=== PATIENT | male | born 1940 | race Caucasian/White ===

== ENCOUNTER 2019-09-12 08:41 | Inpatient (IN) | payer MEDICARE ==
[~2019-09-12] VITALS: Ht 180.3 cm; Wt 84.1 kg
[2019-09-12] MEDS ORDERED: DOCUSATE SODIUM 100 MG (COLACE) CAP PO PRN (10:30)
[2019-09-12] MEDS ORDERED: CALCIUM CARBONATE 500 MG (TUMS) TAB.CHEW PO PRN (10:30)
[2019-09-12] MEDS ORDERED: diphenhydrAMINE 25 MG TAB (BENADRYL) PO PRN (10:30)
[2019-09-12] MEDS ORDERED: FLEET ENEMA ADULT 1 EA BTL PR PRN (10:30)
[2019-09-12] MEDS ORDERED: ACETAMINOPHEN 500 MG TAB (TYLENOL) PO PRN (10:30)
[2019-09-12] MEDS ORDERED: LOPERAMIDE 2 MG (IMODIUM) TABLET PO PRN (10:30)
[2019-09-12] MEDS ORDERED: LACTULOSE SYRUP 10GM/15ML (ENULOSE) 30ML UDC PO PRN (10:30)
[2019-09-12] MEDS ORDERED: BISACODYL 10 MG SUPP (DULCOLAX) PR PRN (10:30)
[2019-09-12] MEDS ORDERED: guaiFENesin/CODEINE (ROBITUSSIN AC) 10ML UDC PO PRN (10:30)
--- NOTE | 2019-09-12 11:30 | NUR ---
Milan Cardozo JR admitted to room 230-1, with an admitting diagnosis of CVA, on 09/12/19 from [facility] via EMS, accompanied by ems staff. MILAN CARDOZO JR introduced to surroundings, call light, bed controls, phone, TV, temperature control, lights, meal times, smoking policy, visitor policy, side rail policy, bathrooms and showers. Patient Rights given to patient in the handbook.MILAN CARDOZO JR verbalizes understanding that [facility] is not responsible for the loss or damage to any personal effects or valuables that are kept in the patients posession during their hospitalization. The following Patient Care Plans were discussed with the patient: Discharge Planning, CVA,and falls. MILAN CARDOZO JR verbalizes understanding of Interdisciplinary Patient Education. Patient and/or family were informed about the Rapid Response Team and its purpose. Patient received Patient Rights Booklet, which includes Privacy Act Statement and Data Collection Information Summary.
[2019-09-12 11:52] VITALS: BP 118/71
[2019-09-12 11:56] VITALS: BP 118/71
--- NOTE | 2019-09-12 11:57 | Occupational Therapy Eval ---
OT Evaluation-General/PLF Medical Diagnosis Admission Date Sep 12, 2019 at 11:43 Medical Diagnosis: CVA Onset Date: Aug 02, 2019 Therapy Diagnosis Therapy Diagnosis: Decreased ADL status Precautions Precautions/Isolations: Standard Precautions Weight Bear Status Weight Bearing Restriction: Weight Bearing/Tolerated Location Restriction: LE Bilateral Referral Physician: Diana Simon DO Referral Reason: Activity Tolerance, Self Care, Evaluation/Treatment, Strengthening/ROM Medical History Additional Medical History Prostate Ca, COPD, DVT, CAD, HTN Current History Pt underwent cholecystostomy 07/30, readmitted to [facility] 08/01 with abdominal pain and questionable PNA. Pt has rapid response 08/12 with hypoxia and hypotension. Reviewed History: Yes Social History Home: Single Level Current Living Status: Significant Other Entry Into Home: Stairs With Railing Steps Into Home: 2 Steps Inside Home: 0 ADL-Prior Level of Function SCALE: Activities may be completed with or without assistive devices. 6-Ifgysmendj-fgyfjgm completes the activity by him/herself with no assistance from a helper. 5-Set-up or Clean-up Assistance-helper sets up or cleans up; patient completes activity. [place] assists only prior to or following the activity. 4-Supervision or Touching Assistance-helper provides verbal cues and/or touching/steadying and/or contact guard assistance as patient completes activity. Assistance may be provided throughout the activity or intermittently. 3-Partial/Moderate Assistance-helper does LESS THAN HALF the effort. [place] lifts, holds or supports trunk or limbs, but provides less than half the effort. 2-Substantial/Maximal Assistance-helper does MORE THAN HALF the effort. [place] lifts or holds trunk or limbs and provides more than half the effort. 7-Msgpbwpkk-rgoodc does ALL the effort. Patient does none of the effort to complete the activity. Or, the assistance of 2 or more helpers is required for the patient to complete the activity. If activity was not attempted, code reason: 7-Patient Refused. 9-Not Applicable-not attempted and the patient did not perform the activity before the current illness, exacerbation or injury. 10-Not Attempted due to Environmental Limitations-(lack of equipment, weather restraints, etc.). 88-Not Attempted due to Medical Conditions or Safety Concerns. ADL PLOF Comments Pt was IND with I/ADLs without use of AD. Self Care: Independent Functional Cognition: Independent DME/Equipment: Tub/Shower DME/Equipment Comments Pt has small bathroom, questions if w/c will fit into bathroom for toileting. BSC/ tub transfer bench recommended at this time. Occupation: retired ([employer]M) [address] Self: Yes OT Current Status Subjective Pt seen in bed. Pt alert/ oriented. Pt agreeable to OT eval/ treat. present. Pt states he is "okay", pt presents with lean to R and neck turned to R side. Current Glasses/Contacts: Yes Hearing Aids: No Dentures/Partials: No Other Treatments Pt and oriented to ARU and expectations, educated on OT role. Pt agrees to OT tx, stating he is feeling fine. Pt able to mobilize head WFL (R to L). Pt states no vision changes post CVA. Education OT Patient Education: Correct positioning, Progress toward Goal/Update tx plan, Purpose of tx/functional activities, Rehab process, Safety issues Teaching Recipient: Patient Teaching Methods: Demonstration, Discussion Response to Teaching: Verbalize Understanding, Return Demonstration OT Water Aerobics Instructor Goals Water Aerobics Instructor Goals 1=Demonstrate adherence to instructed precautions during ADL tasks. 2=Patient will verbalize/demonstrate understanding of assistive devices/modifications for ADL. 3=Patient will improve strength/tolerance for activity to enable patient to perform ADL's. OT Education/Plan Problem List/Assessment Assessment: Decreased Activ Tolerance, Decreased UE Strength, Dependent Transfers, Impaired Bed Mobility, Impaired Coordination, Impaired Funct Balance, Impaired I ADL's, Impaired Self-Care Skills, Restricted Funct UE ROM Discharge Recommendations Plan/Recommendations: Continue POC Therapy Discharge Recommendati: Bath Aide, Home & Family, Post Acute OT Equpiment Recommendations-D/C: Extended Bath Bench, Rails on Tub/Shower, Extended Shower Sprayer, Bedside Commode Treatment Plan/Plan of Care Treatment,Training & Education: Yes Patient would benefit from OT for education, treatment and training to promote independence in ADL's, mobility, safety and/or upper extremity function for ADL's. Plan of Care: ADL Retraining, Caregiver Training, Functional Mobility, Group Exercise/Act as Ind, Orthotic Fitting/Training, UE Funct Exercise/Act, UE Neuromus Re-Ed/Coord, Visual/Perceptual Retrain, W/C Management Training Treatment Duration: Oct 03, 2019 Frequency: At least 5 of 7 days/Wk (IRF) Estimated Hrs Per Day: 1.5 hours per day Agreement: Yes Rehab Potential: Fair Time/GCodes Start Time: 11:40 Billed Treatment Time [id number] (15): 1, DAJUAN (15) TRINI STOVER OTR Sep 12, 2019 11:57
--- OUTSIDE RECORDS SUMMARY | 2019-09-12 12:00 | XMS REPORT | Continuity of Care Document ---
Author Organization Unknown Address Unknown Phone Unavailable Allergies There is no data. Medications There is no data. Problems There is no data. Procedures There is no data. Results There is no data. Encounters ACCT No. Visit Date/Time Discharge Status Pt. Type Provider Facility Loc./Unit Complaint [id number] 09/12/2019 11:43:[address] Inpatient KENZIE MORENO DO [facility] CVA
[2019-09-12] MEDS ORDERED: INSU100V39 SQ (12:33)
[2019-09-12] MEDS ORDERED: LEVO75TA6 PO (12:33)
[2019-09-12] MEDS ORDERED: SUCR1ORA5 PO (12:33)
[2019-09-12] MEDS ORDERED: IPRA3AMP31 IH (12:33)
[2019-09-12] MEDS ORDERED: LACT1CAP76 PEG (12:33)
[2019-09-12] MEDS ORDERED: SENN-234 PO (12:33)
[2019-09-12] MEDS ORDERED: SCOP1PAT11 TD (12:33)
[2019-09-12] MEDS ORDERED: ATOR80TA76 PO (12:33)
[2019-09-12] MEDS ORDERED: METO-333 PO (12:33)
[2019-09-12] MEDS ORDERED: NYST1000 PO (12:33)
[2019-09-12] MEDS ORDERED: FLUC100T PEG (12:33)
[2019-09-12] MEDS ORDERED: WARF-48 PO (12:33)
[2019-09-12] MEDS ORDERED: ACET325C7 PO (12:33)
[2019-09-12] MEDS ORDERED: LANS30CA43 PEG (12:33)
--- NOTE | 2019-09-12 12:33 | Progress Note ---
HAYDEN VELA MED STUDENT 09/12/19 1232: Progress Note 79 yo male presents with left-sided hemiplegia, due to CVA. Onset of symptoms was 08/02/19. Warfarin reversal for cholecystectomy performed on 07/31/19. past medical history: cad, dysphagia, essential hypertension, prostate cancer, protein calorie malnutrition, [place], dvt, klebsiella and pseudomonas UTI surgical history- cholecystectomy 07/31/19, coronary stenting x5, prostatectomy, hernia repair drug allergies- no known Neurological Exam CN I- not assessed CN II- pupils equal, round and reactive to light CN III- intact CN IV- intact CN V- intact CN - intact CN VII- intact CN VIII- R intact, L absent. pt is [place], hearing aids were not in. CN IX- intact CN X- intact CN XI- R intact, L absent CN XII- intact Sensation intact bilaterally DTR's not assessed Prior level of function pt able to ambulate without assistance pt able to shower on own pt able to eat on own pt able to toilet on own pt resides with spouse no current goals were discussed DIANA SIMON DO 09/12/19 1942: Supervisory-Addendum Brief Verification & Attestation Participated in pt care: history, MDM, physical Personally performed: exam, history, MDM, supervision of care Care discussed with: Medical Student Procedures: n/a Results interpretation: Verified all documentation Verification and Attestation of Medical Student E/M Service A medical student performed and documented this service in my presence. I r eviewed and verified all information documented by the medical student and made modifications to such information, when appropriate. I personally performed the physical exam and medical decision making. Diana Simon, Sep 12, 2019,19:42 HAYDEN VELA MED STUDENT Sep 12, 2019 12:32 DIANA SIMON DO Sep 12, 2019 19:42
--- NOTE | 2019-09-12 12:37 | NUR ---
MED REC WAS ENTERED USING THE DISCHARGE ORDERS FROM [facility]- ONCE MEDS ARE CONTINUED I WILL UPDATE THE MED REC/NOTES NEEDED Addendum: 09/14/19 at 1434 by BRIGIDO ARZATE [facility] I SPOKE WITH THE PT AND WENT THRU THE EXT MED HISTORY TO COMPLETE THE MED REC MEDICATIONS THAT I HAVE REMOVED DUE TO THE PT NOT TAKING PRIOR TO HOSPITALIZATION: FLUCONAZOLE 100MG HUMALOG PROBIOTIC LANSOPRAZOLE 30MG NYSTATIN SUSP TRANSDERM SCOP PATCH CARAFATE SUSP DUONEB DEXTROSE SENNA S MEDICATIONS THAT HAVE BEEN CHANGED: WARFARIN: [facility] HAD 5 MG ON THE DISCHARGE BUT PT SAID HE WAS ON THE 4MG METOPROLOL TART 25MG: DISCHARGE INSTRUCTIONS SHOW 1 TAB BID WITH FOOD (THESE ARE ALSO THE DIRECTIONS LISTED AT [facility]) BUT PT SAYS HE ONLY TAKES 1 TAB DAILY LEVOTHYROXINE 150MCG WAS LAST FILLED 04-24-2019 #90 AND ATORVASTATIN 80MG WAS LAST FILLED ON 07-05-2019, I DID INCLUDE THE PAST FILL DATES ON THE MED REC FOR BOTH MEDS OTC MEDS THE PT SAID HE TAKES: ASPIRIN 81, [employer]
--- NOTE | 2019-09-12 14:06 | Physical Therapy Evaluation ---
PT Evaluation-General Medical Diagnosis Admission Date Sep 12, 2019 at 11:43 Medical Diagnosis: CVA Onset Date: Aug 02, 2019 Therapy Diagnosis Therapy Diagnosis: impaired mobility, strength, endurance, balance Precautions Precautions/Isolations: Standard Precautions Referral Physician: Diana Simon DO Reason for Referral: Evaluation/Treatment Medical History Additional Medical History cad, dysphagia, essential hypertension, prostate cancer, protein calorie malnutrition, [place], dvt, klebsiella and pseudomonas UTI surgical history- cholecystectomy 07/31/19, coronary stenting x5, prostatectomy, hernia repair Reviewed History: Yes Social History Home: Single Level Current Living Status: Significant Other Entry Into Home: Stairs With Railing PT Steps Into Home: 2 PT Steps Inside Home: 0 Prior Prior Level of Function SCALE: Activities may be completed with or without assistive devices. 0-Beiwdptnmj-yzecqjq completes the activity by him/herself with no assistance from a helper. 5-Set-up or Clean-up Assistance-helper sets up or cleans up; patient completes activity. [place] assists only prior to or following the activity. 4-Supervision or Touching Assistance-helper provides verbal cues and/or touching/steadying and/or contact guard assistance as patient completes activity. Assistance may be provided throughout the activity or intermittently. 3-Partial/Moderate Assistance-helper does LESS THAN HALF the effort. [place] lifts, holds or supports trunk or limbs, but provides less than half the effort. 2-Substantial/Maximal Assistance-helper does MORE THAN HALF the effort. [place] lifts or holds trunk or limbs and provides more than half the effort. 3-Pigfkazlu-xvdpzw does ALL the effort. Patient does none of the effort to complete the activity. Or, the assistance of 2 or more helpers is required for the patient to complete the activity. If activity was not attempted, code reason: 7-Patient Refused. 9-Not Applicable-not attempted and the patient did not perform the activity before the current illness, exacerbation or injury. 10-Not Attempted due to Environmental Limitations-(lack of equipment, weather restraints, etc.). 88-Not Attempted due to Medical Conditions or Safety Concerns. Bed Mobility: 6 Transfers (B,C,W/C): 6 Gait: 6 Stairs: 6 Indoor Mobility (Ambulation): Independent Stairs: Independent PT Evaluation-Current Subjective Patient in bed pre tx, agrees to PT, has no complaints of pain. Will be co- treating with OT after PT eval due to poor patient mobility, strength, endurance, sitting and standing balance, extreme pushers syndrome, the need to c oordinate UE and LE during activity. Pt/Family Goals to be independent at home Objective Patient Orientation: Person, Non-Verbal/Aphasic, [place] ROM/Strength ROM Lower Extremities wnl Strength Lower Extremities LLE no active movement, RLE 5/5 Neuromuscular (Tone, Coordination, Reflexes) Patient has difficulty tracking, cannot follow directions for peripheral vision test Sensory Vision: Wears Glasses Hearing: Functional Sensation Right Lower Extremit: Intact Sensation Left Lower Extremity: Impaired Transfers Roll Left to Right (QC): 1 Sit to Lying (QC): 1 Lying to Sitting/Side of Bed(Q: 1 Sit to Stand (QC): 1 Chair/Lkw-rm-Gunxd Xfer(QC): 1 Toilet Transfer (QC): 1 Car Transfer (QC): 1 Patient is dependent for bed mobility and transfers, dependent for car transfer. Patient in bed on bedpan, roll to each side for cleaning and getting brief on when done, supine to sit, practice sitting balance, stand pivot transfer to , training 150' to therapy gym (dependent), attempt to equipment engineer parallel bars, patient states he needs to have a BM, taken to bathroom, stand pivot to commode, patient is able to have a small BM, stand twice for cleaning and getting new brief on, stand pivot back to , taken to parallel bars, attempt to stand again, patient is not safe to equipment engineer parallel bars could not be done even with 4 people, practice sitting balance in , taken back to room, stand pivot to bed, roll from side to side to adjust brief. Gait Walk 10 feet (QC): 88 Walk 50 ft with 2 Turns(QC): 88 Walk 150 ft (QC): 88 Walking 10ft/uneven surface-QC: 88 Wheelchair Training Does the Pt Use a Wheelchair?: Yes Distance: 150'x2 Wheel 50 ft with 2 turns (QC): 1 Wheel 150 ft (QC): 1 Type of Wheelchair: Manual Patient resists forward movement with right leg, he will push on the wheel to propel forward for a few pushes but then stops, he cannot explain why he stops Stairs 1 Step (curb) (QC): 88 4 Steps (QC): 88 12 Steps (QC): 88 Balance Sitting Static: Poor Sitting Dynamic: Poor Standing Static: Poor Standing Dynamic: Poor Picking up an Object (QC): 88 Assessment/Needs Patient has poor mobility, strength, endurance, balance. Patient has severe pushers syndrome, pushes to the left side with both his leg and arm, has trouble following simple directions and when he is able to follow them cannot maintain it. Rehab Potential: Poor PT Short Term Goals Short Term Goals Time Frame: Sep 19, 2019 Roll Left & Right: 2 Sit to lyin Lying to sitting on side of be: 2 Sit to stand: 2 Chair/ukk-so-mqfme transfer: 2 Wheel 50ft w/2 turns: 2 Wheel 150 feet: 2 PT Halfway Goals Halfway Goals PT Halfway Goals Time Frame: Oct 03, 2019 Roll Left & Right (QC): 3 Sit to Lying (QC): 3 Lying-Sitting on Side/Bed(QC): 3 Sit to Stand (QC): 3 Chair/Jgg-el-Ejqta Xfer(QC): 3 Toilet Transfer (QC): 3 Car Transfer (QC): 3 Does the Patient Walk: No and Walking Goal NOT indicated Walk 10 feet (QC): 88 Walk 50ft with 2 Turns (QC): 88 Walk 150 ft (QC): 88 Walking 10ft on Uneven Surface: 88 1 Step (curb) (QC): 88 4 Steps (QC): 88 12 Steps (QC): 88 Picking up an Object (QC): 88 Wheel 50 feet with 2 turns (QC: 3 Wheel 150 feet: 3 PT Plan Problem List Problem List: Activity Tolerance, Functional Strength, Safety, Balance, Gait, Transfer, Bed Mobility, ROM Treatment/Plan Treatment Plan: Continue Plan of Care Treatment Plan: Bed Mobility, Education, Functional Activity Aliyah, Functional Strength, Group Therapy, Gait, Safety, Therapeutic Exercise, Transfers Treatment Duration: Oct 03, 2019 Frequency: At least 5 of 7 days/Wk (IRF) Estimated Hrs Per Day: 1.5 hours per day Patient and/or Family Agrees t: Yes Safety Risks/Education Patient Education: Transfer Techniques, Correct Positioning, W/C Management, Safety Issues Teaching Recipient: Patient Teaching Methods: Demonstration, Discussion Response to Teaching: Reinforcement Needed Discharge Recommendations Plan Patient will perform bed mobility and transfer training, balance and endurance training, functional strengthening, gait training, and education, to improve functional mobility and independence at home. Therapy Discharge Recommendati: Other, See Comments (NH) Time/GCodes Time In: 1240 Time Out: 1400 Total Billed Treatment Time: 80 Total Billed Treatment 1 visit EVM 10' FA 70' (only charge 4 units) PT performed bed mobility, rolling, transfers, sitting balance training, standing, WC mobility, OT assisted with mobility and UE positioning and safety. [id number] PT [place], co-treat from [id number] RUY MCGRATH PT Sep 12, 2019 14:06
--- NOTE | 2019-09-12 14:14 | Occupational Therapy Eval ---
OT Evaluation-General/PLF Medical Diagnosis Admission Date Sep 12, 2019 at 11:43 Medical Diagnosis: CVA Onset Date: Aug 02, 2019 Therapy Diagnosis Therapy Diagnosis: Decreased ADL status Precautions Precautions/Isolations: Standard Precautions Weight Bear Status Weight Bearing Restriction: Weight Bearing/Tolerated Location Restriction: LE Bilateral Referral Physician: Diana Simon DO Referral Reason: Activity Tolerance, Self Care, Evaluation/Treatment, Strengthening/ROM Medical History Additional Medical History Prostate Ca, COPD, DVT, CAD, HTN Current History Pt underwent cholecystostomy 07/30, readmitted to [place] 08/01 with abdominal pain and questionable PNA. Pt has rapid response 08/12 with hypoxia and hypotension. states CVA 08/23. Reviewed History: Yes Social History Home: Single Level Current Living Status: Significant Other Entry Into Home: Stairs With Railing Steps Into Home: 2 Steps Inside Home: 0 ADL-Prior Level of Function SCALE: Activities may be completed with or without assistive devices. 6-Narwktyjdi-bfygnbo completes the activity by him/herself with no assistance from a helper. 5-Set-up or Clean-up Assistance-helper sets up or cleans up; patient completes activity. [place] assists only prior to or following the activity. 4-Supervision or Touching Assistance-helper provides verbal cues and/or touching/steadying and/or contact guard assistance as patient completes activity . Assistance may be provided throughout the activity or intermittently. 3-Partial/Moderate Assistance-helper does LESS THAN HALF the effort. [place] lifts, holds or supports trunk or limbs, but provides less than half the effort. 2-Substantial/Maximal Assistance-helper does MORE THAN HALF the effort. [place] lifts or holds trunk or limbs and provides more than half the effort. 3-Iryscythj-uuzuik does ALL the effort. Patient does none of the effort to complete the activity. Or, the assistance of 2 or more helpers is required for the patient to complete the activity. If activity was not attempted, code reason: 7-Patient Refused. 9-Not Applicable-not attempted and the patient did not perform the activity before the current illness, exacerbation or injury. 10-Not Attempted due to Environmental Limitations-(lack of equipment, weather restraints, etc.). 88-Not Attempted due to Medical Conditions or Safety Concerns. ADL PLOF Comments Pt was IND with I/ADL tasks without use of AD though has 2WW. Self Care: Independent Functional Cognition: Independent DME/Equipment: Tall Toilet, Tub/Shower Occupation: retired [address] Self: Yes OT Current Status Subjective Pt seen in bed with nursing/ present. Pt alert/ oriented to person/ place. pt agrees to OT eval/ treat. Denies pain. Pt delayed in responses. Mental Status/Objective Patient Orientation: Person, Place Attachments: NG Tube Current Glasses/Contacts: Yes Hearing Aids: No Dentures/Partials: No Hand Dominance: Right Upper Extremity ROM R WFL L flaccid (noted movement in shoulder shrug) Upper Extremity Coordination WFL R flaccid L Upper Extremity Sensation WFL R L decreased light touch/ deep pressure (pt states can feel when visually compensating, when blindfolded pt no sensation) Upper Extremity Strength R WFL L flaccid ADL-Treatment Eating (QC): 88 (See [employer] EXECUTIVE DIRECTOR notes) Oral Hygiene (QC): 7 (denies oral sponge at this time) Shower/Bathe Self (QC): 2 (based on clinical judgment) Upper Body Dressing (QC): 1 (Based on judgment and max A x2) Lower Body Dressing (QC): 1 (TD with max A x2 for assist) On/Off Footwear (QC): 1 (TD) Toileting Hygiene (QC): 1 (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 pt requires max A for righting and TD for hygiene) Other Treatments OT eval: 5729-9261 ((15) OT Individual tx: [id number] PT eval: 2885-7894 OT/ PT co-treat: 3833-5947 (70): OT addresses ADLs, UE movement, posture and problem solving while PT addresses functional mobility, w/c mob, posture and LB movement. Total: 95 Pt and oriented to ARU and expectations, educated on OT role. Pt agrees to OT tx, stating he is feeling fine. Pt able to mobilize head WFL (R to L), though completes with increased cues and delays to L side. Slight L neglect. Pt states no vision changes post CVA, tracks to all planes WFL. Pt able to complete R UE WFL. Pt able to slightly contract L trap, no AROM LUE. Bed mob (rolling) max A for bottom hygiene. Tpt bed mob with max A x2, pushes to L side, pt educated on need to sit up straight, completes trasfer to w/c with TD x2 with SPT. Pt completes w/c mob with max cues for RLE and RUE movement. oile[place] [facility] [place], pushes at commode- able to complete toileting hygiene with TD. Cues for head position as cervical neck flexes forward, slight droop to L side of face and drools. pt cues for head upright, assists with posture. 02 mid to high 90's. pt attempts stand at parallel bars- pt pushes extreme to L side. Pt given instruction to pull with R UE back to midline, unable to complete without consistent cues. Delayed response time and problem solving skills. Pt returns to bed with TD. All needs met, call light in reach. Education OT Patient Education: Correct positioning, Exercise program, Home exercise program, Modified ADL techniques, Purpose of tx/functional activities, Reviewed precautions, Rehab process, Safety issues, Transfer techniques, Use of adapted equipment, W/C management Teaching Recipient: Patient Teaching Methods: Demonstration, Discussion Response to Teaching: Verbalize Understanding, Unable to Return Demonstration, Unable to Comprehend, Reinforcement Needed OT Short Term Goals Short Term Goals Time Frame: Sep 19, 2019 Shower/bathe self: 2 Upper body dressin Lower body dressin OT Detention Goals Detention Goals Time Frame: Oct 03, 2019 Eating (QC): 4 Oral Hygiene (QC): 4 Toileting Hygiene (QC): 3 Shower/Bathe Self (QC): 3 Upper Body Dressing (QC): 3 Lower Body Dressing (QC): 2 On/Off Footwear (QC): 2 Additional Goals: 1-Demonstrate ADL Tasks, 2-Verbalize Understanding, 3- ImproveStrength/Aliyah 1=Demonstrate adherence to instructed precautions during ADL tasks. 2=Patient will verbalize/demonstrate understanding of assistive devices/modifications for ADL. 3=Patient will improve strength/tolerance for activity to enable patient to perform ADL's. OT Education/Plan Problem List/Assessment Assessment: Decreased Activ Tolerance, Decreased Safety Aware, Decreased UE Strength, Dependent Transfers, Impaired Bed Mobility, Impaired Cognition, Impaired Coordination, Impaired Funct Balance, Impaired I ADL's, Impaired Self- Care Skills, Restricted Funct UE ROM Discharge Recommendations Plan/Recommendations: Continue POC Therapy Discharge Recommendati: 24 Hour Supervision, Post Acute OT Treatment Plan/Plan of Care Treatment,Training & Education: Yes Patient would benefit from OT for education, treatment and training to promote independence in ADL's, mobility, safety and/or upper extremity function for A DL's. Plan of Care: ADL Retraining, Caregiver Training, Functional Mobility, Group Exercise/Act as Ind, Orthotic Fitting/Training, UE Funct Exercise/Act, UE Neuromus Re-Ed/Coord, Visual/Perceptual Retrain, W/C Management Training Treatment Duration: Oct 03, 2019 Frequency: At least 5 of 7 days/Wk (IRF) Estimated Hrs Per Day: 1.5 hours per day Agreement: Yes Rehab Potential: Fair Time/GCodes Start Time: 11:40 Stop Time: 14:00 Total Time Billed (hr/min): 95 Billed Treatment Time OT eval: 7820-5663 ((15) OT Individual tx: [id number] (10) PT eval: 4089-2069 OT/ PT co-treat: [id number] (70): OT addresses ADLs, UE movement, posture and problem solving while PT addresses functional mobility, w/c mob, posture and LB movement. Total: 95 1, EVH (15) 1, ADL 4 (60), FA (10)= 80 total: 95 TRINI STOVER OTR Sep 12, 2019 14:14
--- NOTE | 2019-09-12 15:58 | ST Cognitive Linguistic Eval ---
Speech Evaluation-General Medical Diagnosis CVA Onset Date: Aug 02, 2019 Therapy Diagnosis Therapy Diagnosis: Cognitive-communication, dysphagia, aphasis Referral Referring Physician: Dr. Simon Medical History Reviewed History: Yes Social History Current Living Status: Significant Other Speech PLF-Current Status Prior Level of Function Patient lived at home with his where he was independent for his daily needs. Subjective Patient was pleasant with the assessment. Language Eval: Auditory Comprehends Simple Yes/No Ques: Functional Indent/Objects Multiple Diego: Functional Ident/Pics in Multiple Diego: Functional Follows 1-Step Commands: Functional Follows Complex Directions: Functional Follows General Conversations: Functional Language Eval: Verbal Language Completes Spontaneous Greeting: Functional Produces Auto, Serial Info: Functional Imitates Simple Words/Phrases: Functional Word Finding: Mild Requests Basic Needs: Functional States Basic Personal Info: Functional Expresses Complex Ideas: Mild Objective Cognitive Domain Attention: WNL Memory: WNL Problem Solving: Mild Executive Functions: Mild Visuospatial Skills: WNL Composite Severity Rating: Mild Clock Drawing Severity Rating: Mild Objective Formal/Standardized Tests [facility] Mental Status ([facility] [[email or web address] Results 24/30, within mild neurocognitive disorder Oral Motor/Speech Production Patient's voice is strained, he is able to understood. Patient's states his voice changed following his gall bladder surgery. Impression Patient is a pleasant 79 y/o male who was admitted to the ARU s/p CVA. Patient is NPO with small sips of water reported to be taken. He had a PEG tube placed approximately a month ago. Patient's cognitive is within the MNCD based on the SLUMS score of 24/30. Patient will receive skilled ST for communication, speech production and dysphagia. An MBS will be completed to follow up with oral intake training as appropriate. The patient is expected to progress with oral motor function. Speech Patient Assess Expression of Ideas/Wants: Exhibits (3) Understanding Verbal Content: Usually Understands (3) Brief Interview-Mental Status: Yes Repetition of Three Words: Three (3) Temporal Orientation: Year: Correct (3) Temporal Orientation: Month: Accurate within 5 days(2) Temporal Orientation: Day: Correct (1) Recall : Wear to say "Sock": Yes,after cueing (1) Recall : Color: No, could not recall (0) Recall : Bed: Yes,after cueing (1) Memory/Recall Ability: Current season, That he or she is in a hsp/hsp unit Speech Short Term Goals Short Term Goals Short Term Goals 1) Patient will complete expressive language exercises at 90% or greater with minimal cues. 2) Patient will complete OME x10 with 90% or greater with minimal cues. 3) Patient will complete oral trials with 90% or greater without s/s of aspiration. Speech Skilled Nursing Goals Fur Drummer Goals Patient will improve speech production for effective communication of his wants/needs. Patient will maintain adequate nutrition/hydration via PEG and/or oral intake. Speech-Plan Patient/Family Goals Patient/Family Goals: Patient plans on returning to his home where he lives with his upon discharge. Treatment Plan Speech Therapy Treatment Plan: Continue Plan of Care Treatment Duration: Sep 28, 2019 Frequency: 4 times per week (Patient will receive skilled ST 4-5x per week) Estimated Hrs Per Day: .5 hour per day Rehab Potential: Poor Barriers to Learning: Patient's recent CVA and other medical needs, age Pt/Family Agrees to Plan: Yes Safety Risks/Education Teaching Recipient: Patient, Significant Other Teaching Methods: Discussion Response to Teaching: Verbalize Understanding Education Topics Provided: Safety within his room, MBS procedure Time Speech Therapy Time In: 15:15 Speech Therapy Time Out: 15:50 Total Billed Time: 35 Billed Treatment Time 1, TALA AGUILAR SLTS No WHORTON, BETHANIA ST Sep 12, 2019 15:58
[2019-09-12] MEDS ORDERED: SENNOSIDES 8.6 MG (SENOKOT) TAB PO PRN (17:00)
[2019-09-12] MEDS ORDERED: RT-ALBUTEROL/IPRATROPIUM 3 ML (DUONEB) VIAL IH PRN (17:00)
[2019-09-12] MEDS ORDERED: NON-FORMULARY MEDICATION 1 EA EA (Sucralfate (Carafate) 1 GM) PO SCH (17:00)
[2019-09-12] MEDS ORDERED: NON-FORMULARY MEDICATION 1 EA EA (Acetaminophen (Tylenol) 650 MG) PO PRN (17:00)
[2019-09-12 18:00] VITALS: BP 141/75
[2019-09-12] MEDS ORDERED: SCOPOLAMINE 1.5 MG (TRANSDERM-SCOP) PATCH TD SCH (19:00)
--- NOTE | 2019-09-12 19:48 | PM&R Post Admission Assessment ---
PM&R HP Date of Visit: Sep 12, 2019 Time of Visit: 14:15 History of Present Illness CC: CVA w/left sided neglect and weakness with dysphagia and aspiration request requiring PEG tube feedings since NPO HPI: This is a 79yoWM who presents to the IRF in need of aggressive therapy in order to regain left sided strength to return as near to baseline as possible in order to return to independent living with at home. 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 Currently he is denying pain. at bedside is exhausted considering his acute illness started 07/31/19 and he has been in the hospital at [facility] since that time. He is retired after 30 years at in [place] and he has been for coming up 50 years in 11/2019. Patient did have GI Bleed at [place] and was taken off Eliquis and after that resolved he was once again restarted on Coumadin and his INR is not therapeutic as of today. No endoscopies completed at [place]. Sandra Virgen, MSIII: 79 yo male presents with left-sided hemiplegia, due to CVA. Onset of symptoms was 08/02/19. Warfarin reversal for cholecystectomy performed on 07/31/19. past medical history: cad, dysphagia, essential hypertension, prostate cancer, protein calorie malnutrition, [place], dvt, klebsiella and pseudomonas UTI surgical history- cholecystectomy 07/31/19, coronary stenting x5, prostatectomy, hernia repair drug allergies- no known Neurological Exam CN I- not assessed CN II- pupils equal, round and reactive to light CN III- intact CN IV- intact CN V- intact CN - intact CN VII- intact CN VIII- R intact, L absent. pt is [place], hearing aids were not in. CN IX- intact CN X- intact CN XI- R intact, L absent CN XII- intact Sensation intact bilaterally DTR's not assessed Prior level of function pt able to ambulate without assistance pt able to shower on own pt able to eat on own pt able to toilet on own pt resides with spouse no current goals were discussed Past Bqwabuh-Wuajcc-Wavcyq Hx Past Med/Social Hx: Reviewed Nursing Past Med/Soc Hx, Reviewed and Corrections made Patient Social History Marrital Status: Employed/Student: retired Alcohol Use: Denies Use Recreational Drug Use: No Smoking Status: Never a Smoker Physical Abuse Screen: No Sexual Abuse: No Recent Foreign Travel: No Contact w/other who traveled: No Recent Hopitalizations: No Recent Infectious Disease Expo: No Immunizations Up To Date Pediatric: Yes Date of Pneumonia Vaccine: Dec 12, 2018 Seasonal Allergies Seasonal Allergies: No Past Medical History Surgeries: Gallbladder (07/31/19) Currently Using CPAP: No Cardiac: Atrial Fibrillation, Coronary Artery Disease, High Cholesterol, Hypertension, Peripheral Vascular Neurological: Stroke (08/02/19) Genitourinary: Kidney Infection Musculoskeletal: Arthritis History of Blood Disorders: No Prior Level of Function Bed Mobility: 6 Transfers: 6 Gait: 6 Stairs: 6 Indoor Mobility (Ambulation): Independent Stairs: Independent Self Care: Independent Functional Cognition: Independent Occupation: retired [address] Self: Yes Current Level of Fuctioning Roll Left to Right: 1 Sit to Lyin Lying to Sitting/Side of Bed: 1 Sit to Stand: 1 Chair/Var-yj-Dccsh Xfer: 1 Car Transfer: 1 Walk 10 feet: 88 Walk 50 ft with 2 Turns: 88 Walk 150 ft: 88 Walking 10ft on uneven surface: 88 Does the Pt Use a Wheelchair: Yes Wheelchair Distance: 150'x2 Wheel 50 ft with 2 turns: 1 Wheel 150 ft: 1 Type of Wheelchair: Manual 1 Step (curb): 88 4 Steps: 88 12 Steps: 88 Picking up an Object: 88 Eatin (See CHIEF DEPUTY notes) Oral Hygiene: 7 (denies oral sponge at this time) Shower/Bathe Self: 2 (based on clinical judgment) Upper Body Dressin (Based on judgment and max A x2) Lower Body Dressin (TD with max A x2 for assist) On/Off Footwear: 1 (TD) Toileting Hygiene: 1 (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 pt requires max A for righting and TD for hygiene) PM&R Allergy/Meds/Data Review Allergies Coded Allergies: No Known Drug Allergies (Unverified , 09/12/19) Home Medications Scheduled Atorvastatin Calcium (Atorvastatin Calcium), 80 MG PO HS, (Reported) Fluconazole (Diflucan), 100 MG PEG Q72H, (Reported) Insulin Lispro (Insulin Lispro), 0-14 UNIT SQ Q6H, (Reported) Lactobacillus Acidophilus/Pect (Acidophilus-Pectin Capsule), 2 EACH PEG BID, (Reported) Lansoprazole (Prevacid), 30 MG PEG BID, (Reported) Levothyroxine Sodium (Levothyroxine Sodium), 150 MCG PO DAILY, (Reported) Metoprolol Tartrate (Metoprolol Tartrate), 25 MG PO BID WITH MEALS, (Reported) Nystatin (Nystatin), 500,000 UNIT PO TID, (Reported) Scopolamine (Transderm-Scop), 1 EACH TD Q72H, (Reported) Sucralfate (Carafate), 1 GM PO Q6H, (Reported) Warfarin Sodium (Warfarin Sodium), 5 MG PO 1700, (Reported) Scheduled PRN Acetaminophen (Tylenol), 650 MG PO Q6H PRN for PAIN-MILD (1-4) OR TEMPATURE, (Reported) Ipratropium/Albuterol Sulfate (Iprat-Albut 0.5-3(2.5) mg/3 ml), 3 ML IH Q4H PRN for SHORTNESS OF BREATH, (Reported) Sennosides (Senna), 8.6 MG PO DAILY PRN for CONSTIPATION-5TH LINE, (Reported) Current Medications Current Medications Reviewed Review of Systems Constitutional: see HPI, dizziness, malaise, weakness EENTM: other (dysphagia) Respiratory: dyspnea on exertion Cardiovascular: no symptoms reported Gastrointestinal: no symptoms reported Genitourinary: no symptoms reported Musculoskeletal: back pain Skin: no symptoms reported Psychiatric/Neurological: Anxiety, Depressed, Numbness, Paresthesia, Tingling, Weakness All Other Systems Reviewed Negative Unless Noted: Yes Physical Exam Physical Exam Vital Signs Vital Signs - First Documented 09/12/19 09/12/19 09/12/19 11:52 11:56 18:00 Temp 36.8 Pulse 93 Resp 18 B/P (MAP) 118/71 Pulse Ox 95 O2 Delivery Room Air Capillary Refill : Height, Weight, BMI Height: '" Weight: lbs. oz. kg; 23.90 BMI Method: General Appearance: No Apparent Distress, WD/WN, Chronically ill Eyes: Bilateral Eye Normal Inspection, Bilateral Eye PERRL HEENT: PERRL/EOMI, Normal ENT Inspection, Pharynx Normal Neck: Full Range of Motion, Normal Inspection, Non Tender, Supple, Carotid Bruit Respiratory: Chest Non Tender, Lungs Clear, Normal Breath Sounds, No Accessory Muscle Use, No Respiratory Distress Cardiovascular: No Edema, No Gallop, No JVD, No Murmur, Normal Peripheral Pulses, Irregularly Irregular Gastrointestinal: Normal Bowel Sounds, No Organomegaly, No Pulsatile Mass, Non Tender, Soft Back: Normal Inspection, No CVA Tenderness, No Vertebral Tenderness Extremity: Normal Capillary Refill, Normal Inspection, Normal Range of Motion, Non Tender, No Calf Tenderness, Pedal Edema Neurologic/Psychiatric: Alert, Oriented x3, Normal Mood/Affect, public relations officer II-XII Norm as Tested, Aphasia, Facial Droop (left), Motor Weakness (left sided) Skin: Normal Color, Warm/Dry Lymphatic: No Adenopathy PM&R Medical Assessment & Plan REHAB/MEDICAL ASSESSMENT AND PLAN: REHAB IMPAIRMENT GROUP: CVA ETIOLOGIC DIAGNOSIS: CVA The comorbidities that impact the patients function and/or functional outcome by: advanced age, severe CAD, PEG tube required, aspiration risk, severe flaccidity left side, left sided neglect REHAB PLAN: The patient is being admitted to our comprehensive inpatient rehabilitation facility and can tolerate the intensity of service consisting of at least: 180 minutes of therapy a day, 5 out of 7 days a week Rehab treatment will consist of: PT OT will focus on regaining function of the left side and hope to help with wheelchair mobility and help him regain some function of ADL's and ST will work on dysphagia but aspiration risk is high The patient/family has a good understanding of our discharge process and will benefit from an interdisciplinary inpatient rehabilitation program. The patient has potential to make improvement and is in need of at least two of the following multidisciplinary therapies including but not limited to physical, occupational, speech, and prosthetics and orthotics. Additionally the patient will need services from respiratory, nutritional services, wound care, psychology, etc. (Customize this to each patient). Given the patients complex condition and risk of further medical complications, rehabilitation services cannot be safely or effectively provided at a lower level of care such as a fdc facility. BARRIERS TO DISCHARGE: Severity of left sided flaccidity ESTIMATED LOS: 14 days DISPOSITION: Home with RELEVANT CHANGES SINCE PREADMISSION SCREENING: I have compared the patients medical and functional status at the time of the preadmission screening and there are: no changes PROGNOSIS: Fair REHABILITATION GOALS: 1. PT OT will focus on regaining function of the left side and hope to help with wheelchair mobility and help him regain some function of ADL's and ST will work on dysphagia but aspiration risk is high All the above goals were reviewed with the patient and he/she is in agreement. By signing this document, I acknowledge that I have personally performed a full physical examination on this patient within 24 hours of admission to this inpatient rehabilitation facility and have determined the patient to be able to tolerate the above course of treatment at an intensive level for a reasonable period of time. I will be completing a detailed individualized Plan of Care for this patient by day #4 of the patients stay based upon the Preadmission Screen, the Post-Admission Evaluation, and the therapy evaluations. Admission Dx/Comorbidities: (1) CVA (cerebral vascular accident) ICD Codes: I63.9 - Cerebral infarction, unspecified (2) Atrial fibrillation with normal ventricular rate ICD Codes: I48.91 - Unspecified atrial fibrillation (3) CAD (coronary artery disease) ICD Codes: I25.10 - Atherosclerotic heart disease of [place] coronary artery without angina pectoris (4) Stented coronary artery ICD Codes: Z95.5 - Presence of coronary angioplasty implant and graft (5) Dysphagia ICD Codes: R13.10 - Dysphagia, unspecified (6) Left-sided weakness ICD Codes: R53.1 - Weakness (7) At risk for aspiration ICD Codes: Z91.89 - Other specified personal risk factors, not elsewhere classified (8) PEG (percutaneous endoscopic gastrostomy) status ICD Codes: Z93.1 - Gastrostomy status (9) On warfarin therapy ICD Codes: Z79.01 - long-term (current) use of anticoagulants (10) 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
[2019-09-12] MEDS: warFARin 5 MG (COUMADIN) TAB PO SCH (20:04)
[2019-09-12] MEDS: SUCRALFATE 1 GM (CARAFATE) TAB PO SCH (20:04)
[2019-09-12] MEDS: meTOprolol TARTRATE 25 MG (LOPRESSOR) TABLET PO SCH (20:04)
[2019-09-12] MEDS: PANTOPRAZOLE 2 MG/ML LIQUID 200 ML (PROTONIX) PEG SCH ×3 (21:00)
[2019-09-12] MEDS ORDERED: NON-FORMULARY MEDICATION 1 EA EA (Lansoprazole (Prevacid) 30 MG) PEG SCH (21:00)
[2019-09-12] MEDS: NYSTATIN ORAL SUSP 5 ML UDC PO SCH (23:41)
[2019-09-12] MEDS: SENNA W/DOCUSATE (SENOKOT S) TABLET PO SCH (23:41)
[2019-09-12] MEDS: LACTOBACILLUS ACIDOPHILUS (PROBIOTIC) CAPSULE PEG SCH (23:41)
[2019-09-12] MEDS: DOCUSATE SODIUM 100 MG (COLACE) CAP PO SCH (23:45)
[2019-09-12] MEDS: polyethylene glycoL POWDER 17 GM (MIRALAX) PACK PO SCH (23:45)
[2019-09-13 05:51] VITALS: BP 137/73
--- NOTE | 2019-09-13 06:10 | PM&R Progress Note ---
Subjective HPI/CC On Admission Date Seen by Provider: Sep 13, 2019 Time Seen by Provider: 09:45 Subjective/Events-last exam 09/13/19: Patient doing pretty well today Sleeping currently Therapy worked with him today Modified Barium Swallow scheduled Hemoglobin 9.6 Disoriented at times Bowels moved yesterday Conferred with RN Reviewed Therapy notes Checked Meds and Labs Review of Systems General: Fatigue, Malaise Neurological: Weakness Objective Exam Vital Signs Vital Signs Date Time Temp Pulse Resp B/P (MAP) Pulse Ox O2 Delivery O2 Flow Rate FiO2 09/13/19 10:10 Room Air 09/13/19 05:51 36.6 85 16 137/73 (94) 97 Capillary Refill : Less Than 3 Seconds General Appearance: No Apparent Distress, WD/WN, Chronically ill HEENT: PERRL/EOMI, Normal ENT Inspection, Pharynx Normal Neck: Full Range of Motion, Normal Inspection, Non Tender, Supple, Carotid Bruit Respiratory: Chest Non Tender, Lungs Clear, Normal Breath Sounds, No Accessory Muscle Use, No Respiratory Distress Cardiovascular: No Edema, No Gallop, No JVD, No Murmur, Normal Peripheral Pulses, Irregularly Irregular Gastrointestinal: Normal Bowel Sounds, No Organomegaly, No Pulsatile Mass, Non Tender, Soft Back: Normal Inspection, No CVA Tenderness, No Vertebral Tenderness Extremity: Normal Capillary Refill, Normal Inspection, Normal Range of Motion, Non Tender, No Calf Tenderness, Pedal Edema Neurologic/Psychiatric: Alert, Oriented x3, Normal Mood/Affect, drill operator II-XII Norm as Tested, Aphasia, Facial Droop (left), Motor Weakness (left sided) Skin: Normal Color, Warm/Dry Lymphatic: No Adenopathy Results/Procedures Lab Laboratory Tests 09/13/19 07:42 Patient resulted labs reviewed. FIM Transfers Therapy Code Descriptions/Definitions Functional [place] Measure: 0=Not Assessed/NA 4=Minimal Assistance 1=Total Assistance 5=Supervision or Setup 2=Maximal Assistance 6=Modified [place] 3=Moderate Assistance 7=Complete IndependenceSCALE: Activities may be completed with or without assistive devices. 6-Zsaugtpxni-axrisii completes the activity by him/herself with no assistance from a helper. 5-Set-up or Clean-up Assistance-helper sets up or cleans up; patient completes activity. [place] assists only prior to or following the activity. 4-Supervision or Touching Assistance-helper provides verbal cues and/or touching/steadying and/or contact guard assistance as patient completes activity. Assistance may be provided throughout the activity or intermittently. 3-Partial/Moderate Assistance-helper does LESS THAN HALF the effort. [place] lifts, holds or supports trunk or limbs, but provides less than half the effort. 2-Substantial/Maximal Assistance-helper does MORE THAN HALF the effort. [place] lifts or holds trunk or limbs and provides more than half the effort. 4-Plvnfxcdl-qbaull does ALL the effort. Patient does none of the effort to complete the activity. Or, the assistance of 2 or more helpers is required for the patient to complete the activity. If activity was not attempted, code reason: 7-Patient Refused. 9-Not Applicable-not attempted and the patient did not perform the activity before the current illness, exacerbation or injury. 10-Not Attempted due to Environmental Limitations-(lack of equipment, weather restraints, etc.). 88-Not Attempted due to Medical Conditions or Safety Concerns. Roll Left to Right (QC): 1 Sit to Lying (QC): 1 Sit to Stand (QC): 1 Chair/Kob-ks-Cxdfg Xfer(QC): 1 Car Transfer (QC): 1 Gait Training Walk 10 feet (QC): 88 Walk 50 ft with 2 Turns(QC): 88 Walk 150 ft (QC): 88 Walking 10ft/uneven surface-QC: 88 Wheelchair Training Does the Pt Use a Wheelchair?: Yes Distance: 150'x2 Wheel 50 ft with 2 turns (QC): 1 Wheel 150 ft (QC): 1 Type of Wheelchair: Manual Stair Training 1 Step (curb) (QC): 88 4 Steps (QC): 88 12 Steps (QC): 88 Balance Picking up an Object (QC): 88 ADL-Treatment Eating (QC): 88 (See [employer] notes) Oral Hygiene (QC): 7 (denies oral sponge at this time) Shower/Bathe Self (QC): 2 (based on clinical judgment) Upper Body Dressing (QC): 1 (Based on judgment and max A x2) Lower Body Dressing (QC): 1 (TD with max A x2 for assist) On/Off Footwear (QC): 1 (TD) Toileting Hygiene (QC): 1 (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 pt requires max A for righting and TD for hygiene) Assessment/Plan Assessment and Plan Assess & Plan/Chief Complaint Assessment: CVA Left sided weakness Left sided neglect PEG tube status Dysphagia Aspiration hx with PNA CAD AF Coumadin treatment Plan: IRF protocol ST to work on dysphagia TF to be maintained Coumadin treatment Cardiology evaluation 09/13/19: Continue aggressive treatment Barium Swallow Monitor Hemoglobin (1) CVA (cerebral vascular accident) (2) Atrial fibrillation with normal ventricular rate (3) CAD (coronary artery disease) (4) Stented coronary artery (5) Dysphagia (6) Left-sided weakness (7) At risk for aspiration (8) PEG (percutaneous endoscopic gastrostomy) status (9) On warfarin therapy (10) Left-sided neglect (11) Facial droop KENZIE MORENO DO Sep 13, 2019 06:10
--- NOTE | 2019-09-13 06:11 | Individualized Plan of Care ---
Individualized Plan of Care Rehab Nursing IPOC Order Admission Date Sep 12, 2019 at 11:43 Current Orders Orders Admission Order(Inpt,Obs,Sdc) (09/12/19 10:21) Vital Signs: Per Unit Policy ( 08,16,00 (09/12/19 10:21) Hernando Mendosa (09/12/19 10:21) Sequential Compression Device Q4H (09/12/19 10:21) Field Services Director-Inpt Rehab Con (09/12/19 10:21) Rehab Nursing Orders-Ipoc (09/12/19 10:21) Physical Therapy Rehab Orders (09/12/19 10:21) Occupational Therapy Rehab Ord (09/12/19 10:21) Speech Therapy Rehab Orders (09/12/19 10:) Cbc With Automated Diff (09/13/19 06:00) Comprehensive Metabolic Panel (09/13/19 06:00) Intake & Output 06,14,22 (09/12/19 10:21) Precautions (Aru) (09/12/19 10:21) Weekly Weight WEEK (09/12/19 10:21) Rehab-Intensity Of Therapy (09/12/19 10:21) Initiate Admission Nursing Pro .admission (09/12/19 10:21) Acetaminophen Tablet (Tylenol Tablet) (09/12/19 10:30) Alprazolam Tablet (Xanax Tablet) (09/12/19 10:30) Calcium Carbonate Chew Tablet (Antacid C (09/12/19 10:30) Diphenhydramine Tablet (Benadryl Tablet) (09/12/19 10:30) Docusate Sodium Capsule (Colace Capsule) (09/12/19 21:00) Docusate Sodium Capsule (Colace Capsule) (09/12/19 10:30) Bisacodyl Suppository (Dulcolax Supposit (09/12/19 10:30) Lactulose Oral Solution (Enulose Oral So (09/12/19 10:30) Na Phos/Na Biphos Enema (Fleet Enema Walter (09/12/19 10:30) Guaifenesin/Codeine Syrup (Robitussin Ac (09/12/19 10:30) Loperamide Tablet (Imodium Tablet) (09/12/19 10:30) Melatonin Tablet (Melatonin Tablet) (09/12/19 10:30) Polyethylene Glycol Powder Pkt (Miralax (09/12/19 21:00) Ondansetron Oral Dissolve Tab (Zofran (09/12/19 10:30) Senna S Tablet (Senokot S Tablet) (09/12/19 21:00) Initiate Admission Nursing Pro .admission (09/12/19 10:21) Code/Resuscitation (09/12/19 10:55) Patient Visit (09/12/19 ) Pt Eval Moderate Complexity (09/12/19 ) Functional Activities, Ea 15 (09/12/19 ) Ambulate 08,12,20 (09/12/19 15:57) Sequential Compression Device Q4H (09/12/19 15:57) Dvt/Vte Risk - Notifiy Physici Q4H (09/12/19 15:57) Patient Visit (09/12/19 ) Speech Sound Lang Comp (09/12/19 ) Dysphagia Evaluation Std (09/12/19 ) Treat. Speech/Lang/Voice (09/12/19 ) Atorvastatin Tablet (Lipitor Tablet) (09/12/19 21:00) Albuterol/Ipra Inhalation Soln (Duoneb I (09/12/19 17:00) Lactobacillus Acidophilus Cap (Acidophil (09/12/19 21:00) Levothyroxine Tablet (Synthroid Tablet) (09/13/19 06:30) Metoprolol Tartrate (Ir) Tab (Lopressor (09/12/19 18:00) Nystatin Oral Suspension (Mycostatin O (09/12/19 21:00) Scopolamine Patch (Transderm-Scop Patch) (09/12/19 19:00) Sennosides Tablet (Senokot Tablet) (09/12/19 17:00) Warfarin Tablet (Coumadin Tablet) (09/12/19 17:00) (Nf) Acetaminophen (Tylenol) (09/12/19 17:00) (Nf) Lansoprazole (Prevacid) (09/12/19 21:00) (Nf) Sucralfate (Carafate) (09/12/19 17:00) Protime With Inr (09/13/19 06:00) Acetaminophen Tablet/Caplet (Tylenol T (09/12/19 17:15) Sucralfate Tablet (Carafate Tablet) (09/12/19 18:00) Water, Sterile For Irrigation (Sterile W (09/12/19 21:00) Nothing By Mouth (09/12/19 Dinner) Patch Removal (Patch Removal) (09/15/19 18:59) Fluconazole Tablet (Diflucan Tablet) (09/14/19 08:00) Modified Barium Swallow (09/14/19 18:51) Consult Cardiology (09/12/19 20:11) Scopolamine Patch (Transderm-Scop Patch) (09/15/19 09:00) Patch Removal (Patch Removal) (09/15/19 09:00) Modified Barium Swallow (09/14/19 08:00) Modified Barium Swallow (09/14/19 11:30) Ekg Tracing (09/13/19 11:00) Aspirin Chewable Tablet (Baby Aspirin Ch (09/14/19 09:00) Us Carotid Alexys Complete [id number] (09/13/19 11:55) Echo W Doppler/Color Flow (09/13/19 11:55) Patient Visit (09/13/19 ) Dysphagia Therapy (09/13/19 ) Treat. Speech/Lang/Voice (09/13/19 ) Tube Feeding (Diet) (09/13/19 13:58) Patient Visit (09/13/19 ) Functional Activities, Ea 15 (09/13/19 ) Wheelchair Mgmt/Propulsn 15min (09/13/19 ) Ex Neuromuscular, Ea 15 Min (09/13/19 ) Levothyroxine Tablet (Synthroid Tablet) (09/14/19 07:00) Rehab Nursing Orders: Ongoing Assess. of Cognitive Status, Ongoing Assess. of Function Status, Bladder Management, Bladder Scan, Bladder Training, Bowel Management, Bowel Training, Disease Management & Educaiton, DVT Prophylaxis, Fall Prevention, Fluid/Electrolyte/Nutrition Mgmt, Infection Prevention, Medication Management & Education, Management of Risks & Complications, Management of Skin Intergrity, Nutrition Management, Pain Management, Patient/Family Support, Safety Management, Swallow Precautions Intensity of Therapy to be met Patient to be seen: Min.3h per day/5 of 7d PT IPOC Problem List: Activity Tolerance, Functional Strength, Safety, Balance, Gait, Transfer, Bed Mobility, ROM Treatment Plan: Continue Plan of Care Bed Mobility, Education, Functional Activity Aliyah, Functional Strength, Group Therapy, Gait, Safety, Therapeutic Exercise, Transfers Treatment Duration: Oct 03, 2019 Frequency: At least 5 of 7 days/Wk (IRF) Estimated Hrs Per Day: 1.5 hours per day OT IPOC Problems: Decreased Activ Tolerance, Decreased Safety Aware, Decreased UE Strength, Dependent Transfers, Impaired Bed Mobility, Impaired Cognition, Impaired Coordination, Impaired Funct Balance, Impaired I ADL's, Impaired Self- Care Skills, Restricted Funct UE ROM OT Treatment, Training and Edu: Yes Plan of Care: ADL Retraining, Caregiver Training, Functional Mobility, Group Exercise/Act as Ind, Orthotic Fitting/Training, UE Funct Exercise/Act, UE Neuromus Re-Ed/Coord, Visual/Perceptual Retrain, W/C Management Training Treatment Duration: Oct 03, 2019 Frequency: At least 5 of 7 days/Wk (IRF) Estimated Hrs Per Day: 1.[address] IPOC Speech Therapy Treatment Plan: Continue Plan of Care Treatment Duration: Sep 28, 2019 Frequency: 4 times per week (Patient will receive skilled ST 4-5x per week) Estimated Hrs Per Day: .5 hour per day Field Services Director/Case Mgmt Field Services Director/Case Managemen: Discharge Planning Dietitian/Note Teller Dietitian/Note Teller to monitor nutritional status and make changes and/or recommendations as needed and work with speech pathology on dietary upgrades as the occur. Physician IPOC Medical Issues being managed closely and that require the 24 hour availability of a physician: Long hospital course prior to admit with significant decompensation episodes with aspiration PNA and considering severe cardiac issues we will monitor closely for clinical changes. Medical Issues: Bowel/Bladder Function, DVT Prophylaxis, Falls Precautions, Fluid/Electrolyte/Nutrition Balance, Infection Protection, Pain Management Brief Synthesis of Preadmission Screen, Post-Admission Evaluation, and Therapy Evaluations: PT OT will help regain strength and ambulatory capabilities along with ST focusing on cognitive sharpening Medical Prognosis: Fair Anticipated Length of Stay: 10 days KENZIE MORENO DO Sep 13, 2019 06:11
[2019-09-13] MEDS ORDERED: LEVOTHYROXINE 75 MCG (LEVOTHROID) TABLET PO SCH (06:30)
[2019-09-13] MEDS: SUCRALFATE 1 GM (CARAFATE) TAB PO SCH ×4 (06:40→17:32)
[2019-09-13 07:53] LABS: BASOPHILS # (AUTO) 0.1 10^3/uL (0.0-0.1); BASOPHILS % (AUTO) 1 % (0-10); EOSINOPHILS # (AUTO) 0.2 10^3/uL (0.0-0.3); EOSINOPHILS % (AUTO) 3 % (0-10); HEMATOCRIT 32 % (40-54); HEMOGLOBIN 9.6 G/DL (13.3-17.7); LYMPHOCYTES # (AUTO) 1.3 X 10^3 (1.0-4.0); LYMPHOCYTES % (AUTO) 16 % (12-44); MEAN CORPUSCULAR HEMOGLOBIN 27 PG (25-34); MEAN CORPUSCULAR HGB CONC 30 G/DL (32-36); MEAN CORPUSCULAR VOLUME 90 FL (80-99); MEAN PLATELET VOLUME 10.4 FL (7.4-10.4); MONOCYTES # (AUTO) 0.8 X 10^3 (0.0-1.0); MONOCYTES % (AUTO) 10 % (0-12); NEUTROPHILS # (AUTO) 5.4 X 10^3 (1.8-7.8); NEUTROPHILS % (AUTO) 70 % (42-75); PLATELET COUNT 216 10^3/uL (130-400); RED CELL DISTRIBUTION WIDTH 16.5 % (10.0-14.5); WHITE BLOOD COUNT 7.7 10^3/uL (4.3-11.0)
[2019-09-13 08:06] LABS: INR 1.2 (0.8-1.4); PROTHROMBIN TIME PATIENT 15.9 SEC (12.2-14.7)
[2019-09-13 08:11] LABS: BUN/CREATININE RATIO 29; CARBON DIOXIDE 22 MMOL/L (21-32); CHLORIDE 104 MMOL/L (98-107); CREATININE SERUM 0.84 MG/DL (0.60-1.30); SODIUM 137 MMOL/L (135-145)
[2019-09-13 08:12] LABS: ALANINE AMINOTRANSFERASE 33 U/L (0-55); ALBUMIN 3.4 GM/DL (3.2-4.5); ALKALINE PHOSPHATASE 71 U/L (40-136); BILIRUBIN,TOTAL 0.4 MG/DL (0.1-1.0); CALCIUM 8.5 MG/DL (8.5-10.1); GFR ESTIMATED > 60; GLUCOSE 116 MG/DL (70-105); TOTAL PROTEIN 6.2 GM/DL (6.4-8.2)
[2019-09-13] MEDS: SENNA W/DOCUSATE (SENOKOT S) TABLET PO SCH ×2 (08:33→21:27)
[2019-09-13] MEDS: DOCUSATE SODIUM 100 MG (COLACE) CAP PO SCH ×2 (08:33→21:26)
[2019-09-13] MEDS: NYSTATIN ORAL SUSP 5 ML UDC PO SCH ×3 (08:33→21:27)
[2019-09-13] MEDS: LACTOBACILLUS ACIDOPHILUS (PROBIOTIC) CAPSULE PEG SCH ×2 (08:33→21:26)
[2019-09-13] MEDS: polyethylene glycoL POWDER 17 GM (MIRALAX) PACK PO SCH ×2 (08:33→21:27)
[2019-09-13] MEDS: PANTOPRAZOLE 2 MG/ML LIQUID 200 ML (PROTONIX) PEG SCH ×6 (08:38→21:26)
[2019-09-13] MEDS: meTOprolol TARTRATE 25 MG (LOPRESSOR) TABLET PO SCH ×2 (08:38→17:32)
--- NOTE | 2019-09-13 10:18 | Occupational Ther Daily Note ---
OT Current Status-Daily Note Subjective Pt alert, sitting in recliner. Pt agrees to therapy. Pt slow to respond to questions, when does it is appropriate. No c/o pain. Mental Status/Objective Patient Orientation: Person, Situation Attachments: IV ADL-Treatment OT/PT co-treat ([id number]), skills of 2 clinician required for neuromuscular retraining, skilled instructions for modifications, transfers, standing and ADLs. PT working on bed mobility, w/c mobility, transfers and standing. OT working on ADLs, assist with positioning L UE and stabilizing pt during standing tasks. Pt agrees to bed bath. Min A for turning toward L side and holding position. Max A x2 for turning toward R side and holding position. Pt set up for bathing in bed. Pt required verbal cues to wash face, L arm, abdomen, chest and jean-pierre area. Assist x2 to cleanse jean-pierre area thoroughly, lower body and buttocks. Assist x2 to don/doff briefs, pants in supine. Max A to don/doff socks. Sarah lift for transfers. Max A x2 to don/doff shirt, one assist to le an forward and one assist to thread L arm/head then pull down. Therapy Code Descriptions/Definitions Functional [place] Measure: 0=Not Assessed/NA 4=Minimal Assistance 1=Total Assistance 5=Supervision or Setup 2=Maximal Assistance 6=Modified [place] 3=Moderate Assistance 7=Complete IndependenceSCALE: Activities may be completed with or without assistive devices. 5-Lkrptjgybd-zuyeqfr completes the activity by him/herself with no assistance from a helper. 5-Set-up or Clean-up Assistance-helper sets up or cleans up; patient completes activity. [place] assists only prior to or following the activity. 4-Supervision or Touching Assistance-helper provides verbal cues and/or touching/steadying and/or contact guard assistance as patient completes activity. Assistance may be provided throughout the activity or intermittently. 3-Partial/Moderate Assistance-helper does LESS THAN HALF the effort. [place] lifts, holds or supports trunk or limbs, but provides less than half the effort. 2-Substantial/Maximal Assistance-helper does MORE THAN HALF the effort. [place] lifts or holds trunk or limbs and provides more than half the effort. 0-Zwmcwwukw-yktfqd does ALL the effort. Patient does none of the effort to complete the activity. Or, the assistance of 2 or more helpers is required for the patient to complete the activity. If activity was not attempted, code reason: 7-Patient Refused. 9-Not Applicable-not attempted and the patient did not perform the activity before the current illness, exacerbation or injury. 10-Not Attempted due to Environmental Limitations-(lack of equipment, weather restraints, etc.). 88-Not Attempted due to Medical Conditions or Safety Concerns. Bathing Location: Chest, Abdomen, Perineal Area Shower/Bathe Self (QC): 1 Upper Body Dressing (QC): 1 Lower Body Dressing (QC): 1 On/Off Footwear: 2 Toileting Hygiene (QC): 1 (Pt incontinent. Unable to cleanse self or complete clothing manipulation) Toilet Transfer (QC): 88 (Using bedpan) Other Treatment Pt then working on w/c chair mobility, verbal and physical cues to work on sequencing then pt able to return demonstration to propel chair and assist to steer. Pt stood at parallel bars 2x's with max A x3 for safety, see PT notes for progress. After session, pt sitting up in recliner with call light/phone in reach. All needs met in room. Education OT Patient Education: Modified ADL techniques, Safety issues, Transfer techniques Teaching Recipient: Patient Teaching Methods: Demonstration, Discussion Response to Teaching: Verbalize Understanding, Reinforcement Needed OT Short Term Goals Short Term Goals Time Frame: Sep 19, 2019 Shower/bathe self: 2 Upper body dressin Lower body dressin OT Booster Plant Operator Goals Booster Plant Operator Goals Time Frame: Oct 03, 2019 Eating (QC): 4 Oral Hygiene (QC): 4 Toileting Hygiene (QC): 3 Shower/Bathe Self (QC): 3 Upper Body Dressing (QC): 3 Lower Body Dressing (QC): 2 On/Off Footwear (QC): 2 Additional Goals: 1-Demonstrate ADL Tasks, 2-Verbalize Understanding, 3- ImproveStrength/Aliyah 1=Demonstrate adherence to instructed precautions during ADL tasks. 2=Patient will verbalize/demonstrate understanding of assistive devices/modifications for ADL. 3=Patient will improve strength/tolerance for activity to enable patient to perform ADL's. OT Education/Plan Problem List/Assessment Assessment: Decreased Activ Tolerance, Decreased Safety Aware, Decreased UE Strength, Dependent Transfers, Impaired Bed Mobility, Impaired Cognition, Impaired Coordination, Impaired Funct Balance, Impaired I ADL's, Impaired Self- Care Skills, Restricted Funct UE ROM, Visual-Perceptual Deficit (L neglect) Discharge Recommendations Plan/Recommendations: Continue POC Treatment Plan/Plan of Care Patient would benefit from OT for education, treatment and training to promote independence in ADL's, mobility, safety and/or upper extremity function for ADL's. Plan of Care: ADL Retraining, Caregiver Training, Functional Mobility, Group Exercise/Act as Ind, Orthotic Fitting/Training, UE Funct Exercise/Act, UE Neuromus Re-Ed/Coord, Visual/Perceptual Retrain, W/C Management Training Treatment Duration: Oct 03, 2019 Frequency: At least 5 of 7 days/Wk (IRF) Estimated Hrs Per Day: 1.5 hours per day Agreement: Yes Rehab Potential: Poor Time/GCodes Start Time: 09:00 Stop Time: 10:00 Total Time Billed (hr/min): 60 Billed Treatment Time 1 visit-ADL 2 (30 min) NM 2 (30 min) co-treat with PT 60 min ([id number]) CALLIE LARIOS Sep 13, 2019 10:18
--- NOTE | 2019-09-13 10:53 | Physical Therapy Daily Note ---
PT Daily Note-Current Subjective Pt agreeable to PT. Pt reports he did sleep well last night. Transfers SCALE: Activities may be completed with or without assistive devices. 0-Kwgozfwjhk-oiizxrg completes the activity by him/herself with no assistance from a helper. 5-Set-up or Clean-up Assistance-helper sets up or cleans up; patient completes activity. [place] assists only prior to or following the activity. 4-Supervision or Touching Assistance-helper provides verbal cues and/or touching/steadying and/or contact guard assistance as patient completes activity. Assistance may be provided throughout the activity or intermittently. 3-Partial/Moderate Assistance-helper does LESS THAN HALF the effort. [place] lifts, holds or supports trunk or limbs, but provides less than half the effort. 2-Substantial/Maximal Assistance-helper does MORE THAN HALF the effort. [place] lifts or holds trunk or limbs and provides more than half the effort. 0-Ioaiphgdu-pizvgi does ALL the effort. Patient does none of the effort to complete the activity. Or, the assistance of 2 or more helpers is required for the patient to complete the activity. If activity was not attempted, code reason: 7-Patient Refused. 9-Not Applicable-not attempted and the patient did not perform the activity before the current illness, exacerbation or injury. 10-Not Attempted due to Environmental Limitations-(lack of equipment, weather restraints, etc.). 88-Not Attempted due to Medical Conditions or Safety Concerns. Roll Left & Right (QC): 1 (dep to roll to his right, mod assist to roll to the left. ) Sit to Stand (QC): 1 (Assist of 3 to stand at // bars.) Chair/Ouv-gh-Vdusb Xfer(QC): 1 (sarah) Sarah transfer bed to wheelchair to recliner post treatment. Pt in recliner post treatment with chair alarm activated and needs met. Wheelchair Training Does the Pt Use a Wheelchair?: Yes Type of Wheelchair: Manual Wheelchair propulsion using right U/LE with heavy cues for sequencing, diretion, attention to task, posture, head positioning and forward propulsion. Pt able to propel x 20 ft with 1 left turn then x 10 ft. Mod assist to keep straight. Skill of 2 clinicians used as PT assisted with hand and foot placment as OT focused on head position, gaze and left neglect. Treatments Sit to stand x 2 reps at // bars, pt facing bars and pulling up. skill of 2 clinicians indicated as attention to head/shoulder position, left UE and left LE placment and position as hip/knee extension needs. 2 skilled clinicians present as well as a infrastructure technician and additional PT to facilitate all needs. Pt able to assist with pulling up with the right UE, able to bear weight through the right LE. Blocked right knee and foot, facilitated hip extension right; in addition blocked left knee and foot (2 people to complete) and facilitated upright posture. left LE pulls up without max assist to keep it on the floor. Pt does follow cues and attempts to stand upright but ultimately unable to to come to a full stand. Stands in forward flexed hips and head with lean to the left. OT/PT co-treat ([id number]), skills of 2 clinician required for neuromuscular retraining, skilled instructions for modifications, transfers, standing and ADLs. PT working on bed mobility, w/c mobility, transfers and standing. OT working on ADLs, assist with positioning L UE and stabilizing pt during standing tasks. Pt agrees to bed bath. Mod A for turning toward L side and holding position. Max A x2 for turning toward R side and holding position. Pt set up for bathing in bed. Pt required verbal cues to wash face, L arm, abdomen, chest and jean-pierre area. Assist x2 to cleanse jean-pierre area thoroughly, lower body and buttocks. Assist x2 to don/doff briefs, pants in supine. Max A to don/doff socks. Sarah lift for transfers. Max A x2 to don/doff shirt, one assist to lean forward and one assist to thread L arm/head then pull down. Assessment Pt seems to be more attentive today and less tired, as expected. Pt follows cues, cooperates. However, seems vague in awareness at times. Heavy lean to the left and left neglect noted, but will turn head and eyes with cueing. Pt tolerated well and performed better today. PT Short Term Goals Short Term Goals Time Frame: Sep 19, 2019 Roll Left & Right: 2 Sit to lyin Lying to sitting on side of be: 2 Sit to stand: 2 Chair/sty-hr-fgxrc transfer: 2 Wheel 50ft w/2 turns: 2 Wheel 150 feet: 2 PT Farm Helper Goals Farm Helper Goals PT Farm Helper Goals Time Frame: Oct 03, 2019 Roll Left & Right (QC): 3 Sit to Lying (QC): 3 Lying-Sitting on Side/Bed(QC): 3 Sit to Stand (QC): 3 Chair/Kgn-fk-Uusgw Xfer(QC): 3 Toilet Transfer (QC): 3 Car Transfer (QC): 3 Does the Patient Walk: No and Walking Goal NOT indicated Walk 10 feet (QC): 88 Walk 50ft with 2 Turns (QC): 88 Walk 150 ft (QC): 88 Walking 10ft on Uneven Surface: 88 1 Step (curb) (QC): 88 4 Steps (QC): 88 12 Steps (QC): 88 Picking up an Object (QC): 88 Wheel 50 feet with 2 turns (QC: 3 Wheel 150 feet: 3 PT Plan Problem List Problem List: Activity Tolerance, Functional Strength, Safety, Balance, Gait, Transfer, Bed Mobility Treatment/Plan Treatment Plan: Continue Plan of Care Treatment Plan: Bed Mobility, Education, Functional Activity Aliyah, Functional Strength, Group Therapy, Gait, Safety, Therapeutic Exercise, Transfers Treatment Duration: Oct 03, 2019 Frequency: At least 5 of 7 days/Wk (IRF) Estimated Hrs Per Day: 1.5 hours per day Patient and/or Family Agrees t: Yes Safety Risks/Education Patient Education: Transfer Techniques, Safety Issues Teaching Recipient: Patient Teaching Methods: Demonstration, Discussion Response to Teaching: Reinforcement Needed Time/GCodes Time In: 900 Time Out: 1000 Total Billed Treatment Time: 60 Total Billed Treatment visit FA 45 WC 15 Co treat with OT 60 minutes. CALLIE HAWKINS PT Sep 13, 2019 10:53
--- NOTE | 2019-09-13 11:32 | Consultation-Cardiology ---
HPI-Cardiology Cardiology Consultation: Date of Consultation 09/13/19 Time Seen by a Provider: 11:00 Date of Admission 09-12-2019 Attending Physician Diana Simon DO Admitting Physician Consulting Physician James Mark MD HPI: Chief Complaint: Cardiovascular management Mr. Cardozo is a 79 year old male admitted to [facility] from [facility] in [place], [place]. He is not a good historian and does not recall the events leading to admission here. Per review of the records he was in [facility] in [place], [place] underwent surgery on July 31, 2019 for gangrenous cholecystitis. He has previously been on warfarin d/t DVT. Following reversal of warfarin and surgery he developed symptoms of CVA and was transferred, unclear as to whether he went directly to [facility] or another facility. He is oriented to self. He denies CP, pain or SOB when asked. He is drowsy and drifts back to sleep easily. Review of Systems-Cardiology Review of Systems Other comments ROS to the extent it could be obtained is as per HPI All Other Systems Reviewed Negative Unless Noted: Yes YFU-Wvqaos-Tlficw Hx Patient Social History Marrital Status: Employed/Student: retired Alcohol Use: Denies Use Recreational Drug Use: No Smoking Status: Never a Smoker Recent Foreign Travel: No Recent Infectious Disease Expo: No Hospitalization with Isolation: Denies Physical Abuse Screen: No Sexual Abuse: No Immunizations Up To Date Date of Pneumonia Vaccine: Dec 12, 2018 Past Medical History PMH As described under Assessment. Family Medical History Family Medical History: Unable to obtain Allergies and Home Medications Allergies Coded Allergies: No Known Drug Allergies (Unverified , 09/12/19) Home Medications Acetaminophen 325 Mg Capsule, 650 MG PO Q6H PRN for PAIN-MILD (1-4) OR TEMPATURE, (Reported) Atorvastatin Calcium 80 Mg Tablet, 80 MG PO HS, (Reported) Fluconazole 100 Mg Tablet, 100 MG PEG Q72H, (Reported) STOP DATE 09-15-2019 Insulin Lispro 100 Unit/1 Ml Vial, 0-14 UNIT SQ Q6H, (Reported) Ipratropium/Albuterol Sulfate 3 Ml Ampul.neb, 3 ML IH Q4H PRN for SHORTNESS OF BREATH, (Reported) Lactobacillus Acidophilus/Pect 1 Each Capsule, 2 EACH PEG BID, (Reported) Lansoprazole 30 Mg Capsule.dr, 30 MG PEG BID, (Reported) IF PT HAS A TUBE FEEDING: OPEN CAP AND MIX THE INTACT GRANULES IN 40ML OF APPLE JUICE Levothyroxine Sodium 75 Mcg Tablet, 150 MCG PO DAILY, (Reported) TAKE 1 HOUR BEFORE MEAL Metoprolol Tartrate 25 Mg Tablet, 25 MG PO BID WITH MEALS, (Reported) Nystatin 100,000 Unit/1 Ml Oral.susp, 500,000 UNIT PO TID, (Reported) STOP DATE 09-17-2019 SWISH AND SWALLOW Scopolamine 1 Each Patch.td72, 1 EACH TD Q72H, (Reported) REMOVE OLD PATCH- NO DATE GIVEN OF WHEN LAST PATCH WAS APPLIED Sennosides 8.6 Mg Tablet, 8.6 MG PO DAILY PRN for CONSTIPATION-5TH LINE, (Re ported) Sucralfate 1 Gm/10 Ml Oral.susp, 1 GM PO Q6H, (Reported) Warfarin Sodium 5 Mg Tablet, 5 MG PO 1700, (Reported) Patient Home Medication List Home Medication List Reviewed: Yes Physical Exam-Cardiology Physical Exam Vital Signs/I&O 09/14/19 06:58 Temp 36.4 Pulse 70 Resp 18 B/P (MAP) 133/68 (89) Pulse Ox 94 O2 Delivery Room Air 09/14/19 00:00 Intake Total 1348 ml Balance 1348 ml Capillary Refill : Less Than 3 Seconds Constitutional: well-developed, well-nourished, other (Drowsy, awakens easily, oriented to self only) HEENT: hard of hearing Neck: No carotid bruit; carotid pulses are 2 + bilaterally Respiratory: No accessory muscle use, No respiratory distress; chest expansion is symmetric, chest is bilaterally symmetric, lungs clear to auscultation Cardiovascular: regular rate-rhythm (EKG shows SR with PVC's); No JVD; S1 and S2, systolic murmur Gastrointestinal: soft, audible bowel sounds, other (PEG tube in place) Extremities: no lower extremity edema bilateral Neurologic/Psychiatric: other (moves right extremities; does not move left upper or lower extremity) Skin: No rash on exposed areas, No ulcerations on exposed areas Data Review Labs Laboratory Tests 09/14/19 08:19: Prothrombin Time 17.2H, INR Comment 1.4 ECG Impression ECG Comment SR with PVC's A/P-Cardiology Assessment/Admission Diagnosis 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 Dysphagia - PEG tube in place HTN Documented h/o CAD with stents x 5 - details unknown Documented h/o GI bleed in the past - details unknown Documented h/o DVT for which he was on warfarin (prior to CVA as well) - details unknown H/O acute gangrenous cholecystitis for which he underwent cholecystectomy in July 2019 at [place], [place] Documented h/o prostate cancer Discussion and Recomendations Management of stroke per medical/stroke team Request records regarding coronary status from outlying facility - nursing checking with family for sound controller and hospital where procedures were carried out Continue current medication regimen Documented that he is on warfarin for h/o DVT - management of warfarin per medical team Monitor lab Mild anemia - management per medical team Advise ASA 81 mg d/t reported h/o CAD with stenting We would like to thank medical services for this consult Clinical Quality Measures DVT/VTE Risk/Contraindication: Risk Factor Score Per Nursin RFS Level Per Nursing on Admit: 4+=Very High SAMANTHA GENAO Sep 13, 2019 11:32
--- NOTE | 2019-09-13 11:33 | Progress Note ---
HAYDEN VELA MED STUDENT 09/13/19 1133: Progress Note 79 yo male presents with left-sided hemiplegia, due to CVA. Onset of symptoms was 08/02/19. Warfarin reversal for cholecystectomy performed on 07/31/19. past medical history: cad, dysphagia, essential hypertension, prostate cancer, protein calorie malnutrition, [place], dvt, klebsiella and pseudomonas UTI surgical history- cholecystectomy 07/31/19, coronary stenting x5, prostatectomy, hernia repair In my opinion, the following has been observed since 09/12/2019 pt is disorientated to time and place pt needs questions repeated to be able to answer. pt unable to communicate any goals Goals no current goals were discussed DIANA SIMON DO 09/14/19 0535: Supervisory-Addendum Brief Verification & Attestation Participated in pt care: history, MDM, physical Personally performed: exam, history, MDM, supervision of care Care discussed with: Medical Student Procedures: n/a Results interpretation: Verified all documentation Verification and Attestation of Medical Student E/M Service A medical student performed and documented this service in my presence. I reviewed and verified all information documented by the medical student and made modifications to such information, when appropriate. I personally performed the physical exam and medical decision making. Diana Simon, Sep 14, 2019,05:35 HAYDEN VELA MED STUDENT Sep 13, 2019 11:33 DIANA SIMON DO Sep 14, 2019 05:35
--- NOTE | 2019-09-13 13:24 | Occupational Ther Daily Note ---
OT Current Status-Daily Note Subjective Pt alert, reclining in chair. Pt agrees to therapy. No c/o pain. Increased redness on buttocks noted and circular bob from peg tube tubing on inner L thigh, nrsg notified. Mental Status/Objective Patient Orientation: Person, Place, Time, Situation Attachments: PEG Tube ADL-Treatment Therapy Code Descriptions/Definitions Functional [place] Measure: 0=Not Assessed/NA 4=Minimal Assistance 1=Total Assistance 5=Supervision or Setup 2=Maximal Assistance 6=Modified [place] 3=Moderate Assistance 7=Complete IndependenceSCALE: Activities may be completed with or without assistive devices. 1-Cxgsnmibgn-luwbxab completes the activity by him/herself with no assistance from a helper. 5-Set-up or Clean-up Assistance-helper sets up or cleans up; patient completes activity. [place] assists only prior to or following the activity. 4-Supervision or Touching Assistance-helper provides verbal cues and/or touching/steadying and/or contact guard assistance as patient completes activity. Assistance may be provided throughout the activity or intermittently. 3-Partial/Moderate Assistance-helper does LESS THAN HALF the effort. [place] lifts, holds or supports trunk or limbs, but provides less than half the effort. 2-Substantial/Maximal Assistance-helper does MORE THAN HALF the effort. [place] lifts or holds trunk or limbs and provides more than half the effort. 5-Hzioyihby-ksbsyp does ALL the effort. Patient does none of the effort to complete the activity. Or, the assistance of 2 or more helpers is required for the patient to complete the activity. If activity was not attempted, code reason: 7-Patient Refused. 9-Not Applicable-not attempted and the patient did not perform the activity before the current illness, exacerbation or injury. 10-Not Attempted due to Environmental Limitations-(lack of equipment, weather restraints, etc.). 88-Not Attempted due to Medical Conditions or Safety Concerns. Other Treatment Pt is incontinent of bladder. Sarah lift x2, safety, to transfer from recliner to bed. Assist x2 to cleanse after incontinence. Assist x2 to change briefs and doff pants. Assist x2 to roll and stay on side. Radiology took over pt care. All needs met in room. OT Short Term Goals Short Term Goals Time Frame: Sep 19, 2019 Shower/bathe self: 2 Upper body dressin Lower body dressin OT Crystal Mounter Goals Detention Goals Time Frame: Oct 03, 2019 Eating (QC): 4 Oral Hygiene (QC): 4 Toileting Hygiene (QC): 3 Shower/Bathe Self (QC): 3 Upper Body Dressing (QC): 3 Lower Body Dressing (QC): 2 On/Off Footwear (QC): 2 Additional Goals: 1-Demonstrate ADL Tasks, 2-Verbalize Understanding, 3- ImproveStrength/Aliyah 1=Demonstrate adherence to instructed precautions during ADL tasks. 2=Patient will verbalize/demonstrate understanding of assistive devices/modifications for ADL. 3=Patient will improve strength/tolerance for activity to enable patient to perform ADL's. OT Education/Plan Problem List/Assessment Assessment: Decreased Activ Tolerance, Decreased Safety Aware, Decreased UE Strength, Dependent Transfers, Impaired Bed Mobility, Impaired Coordination, Impaired Funct Balance, Impaired I ADL's, Impaired Self-Care Skills, Restricted Funct UE ROM, Visual-Perceptual Deficit (L neglect) Discharge Recommendations Plan/Recommendations: Continue POC Treatment Plan/Plan of Care Patient would benefit from OT for education, treatment and training to promote independence in ADL's, mobility, safety and/or upper extremity function for ADL's. Plan of Care: ADL Retraining, Caregiver Training, Functional Mobility, Group Exercise/Act as Ind, Orthotic Fitting/Training, UE Funct Exercise/Act, UE Neuromus Re-Ed/Coord, Visual/Perceptual Retrain, W/C Management Training Treatment Duration: Oct 03, 2019 Frequency: At least 5 of 7 days/Wk (IRF) Estimated Hrs Per Day: 1.5 hours per day Agreement: Yes Rehab Potential: Poor Time/GCodes Start Time: 12:00 Stop Time: 12:15 Total Time Billed (hr/min): 15 Billed Treatment Time 1 visit-FA 1 (15 min) CALLIE LARIOS Sep 13, 2019 13:24
--- NOTE | 2019-09-13 13:38 | Diagnostic Imaging Report ---
PROCEDURE: US carotid duplex, bilateral. TECHNIQUE: Multiple real-time grayscale images were obtained over the carotid arteries in various projections, bilaterally. Additional spectral analysis and color Doppler duplex images were also obtained. INDICATION: CVA. Patient has left-sided weakness. FINDINGS: There is moderate amount of calcified plaque in the proximal left internal carotid artery. There is some velocity elevation in the mid and distal left ICA reaching 180 cm/s. Velocities in the left common carotid artery are normal. Mid right CCA is patent and shows normal velocities. There is a large amount of plaque and probable thrombus at the right carotid bulb extending into the right internal carotid artery. No identifiable flow in the distal right common carotid artery or within the right ICA is identified. Both vertebral arteries show antegrade flow. IMPRESSION: 1. 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 2. Moderate plaque in proximal left ICA with some velocity elevation consistent with approximately 50% diameter stenosis. Parameters based on the consensus panel Palacios-Scale and Doppler ultrasound criteria published December 2002, Radiology, Volume 229. DOPPLER (peak systolic velocity M/S Right Left CCA .78 .95 ICA Proximal NA 1.76 ICA Mid NA 1.58 ICA Distal NA 1.80 RATIO NA 1.8 ECA NA 1.74 VERT .68 .55 Dictated by: Dictated on workstation # [id number]
--- NOTE | 2019-09-13 13:43 | Speech Therapy Daily Note ---
Speech Daily Progress Note Subjective Date Seen by Provider: Sep 13, 2019 Time Seen by Provider: 00:30 Patient was laying in his bed resting when I entered his room. The patient was more alert and talkative than he was yesterday. Objective Patient completed OME and voice exercises with 70% accuracy given 30% verbal and/or visual cues. Patient completed small sips of water x2 without cough. Nursing has been giving him small sips with medicines without difficulty. Assessment Assessment Current Status: Good Progress Treatment Plan Continue Plan of Care Speech Short Term Goals Short Term Goals Short Term Goals 1) Patient will complete expressive language exercises at 90% or greater with minimal cues. 2) Patient will complete OME x10 with 90% or greater with minimal cues. 3) Patient will complete oral trials with 90% or greater without s/s of aspiration. Speech Retirement Goals Retirement Goals Patient will improve speech production for effective communication of his wants/needs. Patient will maintain adequate nutrition/hydration via PEG and/or oral intake. Speech-Plan Patient/Family Goals Patient/Family Goals: Patient plans on returning to his home upon discharge, although this may not be the best situation for meeting his needs. Treatment Plan Speech Therapy Treatment Plan: Continue Plan of Care Treatment Duration: Sep 28, 2019 Frequency: 4 times per week (Patient will receive skilled ST 4-5x per week) Estimated Hrs Per Day: .5 hour per day Rehab Potential: Poor Barriers to Learning: Patient's recent CVA, Patient's age Pt/Family Agrees to Plan: Yes Safety Risks/Education Teaching Recipient: Patient Teaching Methods: Demonstration, Discussion Response to Teaching: Verbalize Understanding, Return Demonstration Education Topics Provided: Continued safety with oral intake and within his bed Time Speech Therapy Time In: 13:30 Speech Therapy Time Out: 14:00 Total Billed Time: 30 Billed Treatment Time 1, VONDA [address] Sep 13, 2019 13:43
--- NOTE | 2019-09-13 14:00 | NUR ---
SPOKE WITH KRISTINE (COMPENSATION COORDINATOR) WHO RECOMMENDS BOLUS TUBE FEEDINGS OF JEVITY 1.5- 2 CANS AT 06,12,17. 1 CAN AT 2100. FLUSH WITH 100MLS OF H20 BEFORE AND AFTER EACH FEEDING.
--- NOTE | 2019-09-13 14:02 | NUR ---
DR. SUÁREZ HERE. INFORMED OF CAROTID US FINDINGS.
--- NOTE | 2019-09-13 15:00 | NUR ---
"RD ASSESSMENT PMHx: dysphagia; afib; HTN; CAD; hypercholesterolemia; stroke (08/02/2019) PT INTERACTION: Pt was awake and pleasant during dietary consult for MST score. Pt states current appetite is pretty good. Note pt has PEG tube placed d/t dysphagia. Note pt currently receiving bolus feeds of Jevity 1.5 x7cans/day () at schedule of 0600/1200/1700/2100. Pt states no issues with feeding, constipation or diarrhea. Note last BM was 09/12, and pt currently on bowel regimen of colace BID; senna BID; and miralax BID, per chart review. Pt states no recent wt changes. Note unable to determine recent wt hx, per chart review. Upon visual assessment, pt appears to be adequately nourished with no visible signs of muslce/fat wasting and a BMI of 23.9. Given wt hx and visual assessment, pt does not meet criteria for malnutrition per ASPEN guidelines. ABNORMAL NUTRITION-RELATED LAB VALUES LOW: Pro 6.2 HIGH: BUN 24; glu 116 Est. kcal needs: 2325 kcal | 30 kcal/kg Est. Pro needs: 93 g Pro | 1.2 g Pro/kg PES STATEMENT: Inadequate oral intake (NI-2.1) related to swallowing difficulty as evidenced by pt interview | chart review INTERVENTION: Continue with current TF recommendations: Jevity 1.5 x7cans/day () at schedule of 0600/1200/1700/2100. Flush with 100ml water before and after each bolus for hydration status. Total provides: 2485 kcal (31 kcal/kg); 106 g Pro (1.4 g Pro/kg); and 2060ml free water (with flushes). Will continue to follow and reassess as pt needs, intake, and status change. MONITOR/EVALUATE: PO Intake; Plan of Care; Hydration Status; Weight Status; Lab Values Nima Carrasco, MS, RD, LD"
--- NOTE | 2019-09-13 15:15 | Physical Therapy Daily Note ---
PT Daily Note-Current Subjective Agreeable to PT. No complaints. Transfers SCALE: Activities may be completed with or without assistive devices. 3-Dcilccccna-zbeylil completes the activity by him/herself with no assistance from a helper. 5-Set-up or Clean-up Assistance-helper sets up or cleans up; patient completes activity. [place] assists only prior to or following the activity. 4-Supervision or Touching Assistance-helper provides verbal cues and/or touching/steadying and/or contact guard assistance as patient completes activity. Assistance may be provided throughout the activity or intermittently. 3-Partial/Moderate Assistance-helper does LESS THAN HALF the effort. [place] lift s, holds or supports trunk or limbs, but provides less than half the effort. 2-Substantial/Maximal Assistance-helper does MORE THAN HALF the effort. [place] lifts or holds trunk or limbs and provides more than half the effort. 9-Tgrgbrktb-uvpnvn does ALL the effort. Patient does none of the effort to complete the activity. Or, the assistance of 2 or more helpers is required for the patient to complete the activity. If activity was not attempted, code reason: 7-Patient Refused. 9-Not Applicable-not attempted and the patient did not perform the activity before the current illness, exacerbation or injury. 10-Not Attempted due to Environmental Limitations-(lack of equipment, weather restraints, etc.). 88-Not Attempted due to Medical Conditions or Safety Concerns. Treatments Supine to sit EOB with transfer to his right with max assist, but pt participatory and used right U/LE to assist. Worked on seated EOB balance and trunk control. Focused on sitting upright with head in neutral position and maintaining balance. Required mod assist to sit upright with support at left UE. Then worked on reaching with right UE as he maintained seated balance. Pt in bed in left sidelying with left arm supported and left heel elevated. Needs met. Bed alarm activated. Assessment Current Status: Good Progress Pt follows commands and participates with therapy. Slow to respond at times physically and verbally but does. Able to mimic head position and also acknowledges left with cues. Pt able to recall his profession and his 's. PT Short Term Goals Short Term Goals Time Frame: Sep 19, 2019 Roll Left & Right: 2 Sit to lyin Lying to sitting on side of be: 2 Sit to stand: 2 Chair/laq-jt-lotxi transfer: 2 Wheel 50ft w/2 turns: 2 Wheel 150 feet: 2 PT Chcf Goals Chcf Goals PT Allied Health Teacher Goals Time Frame: Oct 03, 2019 Roll Left & Right (QC): 3 Sit to Lying (QC): 3 Lying-Sitting on Side/Bed(QC): 3 Sit to Stand (QC): 3 Chair/Gpe-sw-Kqkmm Xfer(QC): 3 Toilet Transfer (QC): 3 Car Transfer (QC): 3 Does the Patient Walk: No and Walking Goal NOT indicated Walk 10 feet (QC): 88 Walk 50ft with 2 Turns (QC): 88 Walk 150 ft (QC): 88 Walking 10ft on Uneven Surface: 88 1 Step (curb) (QC): 88 4 Steps (QC): 88 12 Steps (QC): 88 Picking up an Object (QC): 88 Wheel 50 feet with 2 turns (QC: 3 Wheel 150 feet: 3 PT Plan Problem List Problem List: Activity Tolerance, Functional Strength, Safety, Balance, Gait, Transfer, Bed Mobility Treatment/Plan Treatment Plan: Continue Plan of Care Treatment Plan: Bed Mobility, Education, Functional Activity Aliyah, Functional Strength, Group Therapy, Gait, Safety, Therapeutic Exercise, Transfers Treatment Duration: Oct 03, 2019 Frequency: At least 5 of 7 days/Wk (IRF) Estimated Hrs Per Day: 1.5 hours per day Patient and/or Family Agrees t: Yes Safety Risks/Education Patient Education: Safety Issues Teaching Recipient: Patient Teaching Methods: Discussion Response to Teaching: Reinforcement Needed Time/GCodes Time In: 1440 Time Out: 1304 Total Billed Treatment Time: 24 Total Billed Treatment visit NM 24 CALLIE HAWKINS PT Sep 13, 2019 15:15
--- NOTE | 2019-09-13 15:20 | NUR ---
INCONTINENT FREQUENTLY. KIND OF DRIBBLES CONSTANTLY. POST VOID BLADDER SCAN DONE AND SHOWING 0MLS. FREQUENT ELAINA CARE AND LINEN CHANGES. BARRIER CREAM APPLIED TO BOTTOM.
--- NOTE | 2019-09-13 17:17 | Consultation-Cardiology ---
HPI-Cardiology Cardiology Consultation: Date of Consultation 09/13/19 Time Seen by a Provider: 13:20 Date of Admission Attending Physician Diana Simon DO Admitting Physician Consulting Physician KENNEDI SUÁREZ MD, FACP, FACC HPI: Chief Complaint: Reason for Cardiology consult: CAD HPI Mr. Cardozo is a 79 year old male admitted to [facility] from [facility] in [place], [place]. He is not a good historian and does not recall the events leading to admission here. Per review of the records, he was in [facility] in [place], [place], underwent surgery on July 31, 2019 for gangrenous cholecystitis. He has previously been on warfarin d/t DVT. Following reversal of warfarin and surgery he developed symptoms of CVA and was transferred, unclear as to whether he went directly to [place] or another facility. He is oriented to self. He denies CP, pain or SOB when asked. He is drowsy and drifts back to sleep easily. Review of Systems-Cardiology Review of Systems Constitutional: malaise, other (doesn't answer questions in detial) Eyes: No vision change Ears/Nose/Throat: No nasal drainage, No recent hearing loss Respiratory: other (chronic, exertional shortness of breath) Cardiovascular: No chest pain, No palpitations, No syncope Gastrointestinal: No diarrhea, No nausea, No vomiting Genitourinary: No dysuria, No hematuria, No urine frequency changes Musculoskeletal: back pain (chronic) Skin: No rash, No ulcerations Psychiatric/Neurological: focal weakness (L-sided weakness) Hematologic: No bleeding abnormalities All Other Systems Reviewed Negative Unless Noted: Yes AFG-Kitfls-Yvreok Hx Patient Social History Marrital Status: Employed/Student: retired Alcohol Use: Denies Use Recreational Drug Use: No Smoking Status: Never a Smoker Recent Foreign Travel: No Recent Infectious Disease Expo: No Hospitalization with Isolation: Denies Physical Abuse Screen: No Sexual Abuse: No Immunizations Up To Date Date of Pneumonia Vaccine: Dec 12, 2018 Past Medical History PMH As described under Assessment. Family Medical History Family Medical History: Unable to obtain Allergies and Home Medications Allergies Coded Allergies: No Known Drug Allergies (Unverified , 09/12/19) Home Medications Acetaminophen 325 Mg Capsule, 650 MG PO Q6H PRN for PAIN-MILD (1-4) OR TEMPATURE, (Reported) Atorvastatin Calcium 80 Mg Tablet, 80 MG PO HS, (Reported) Fluconazole 100 Mg Tablet, 100 MG PEG Q72H, (Reported) STOP DATE 09-15-2019 Insulin Lispro 100 Unit/1 Ml Vial, 0-14 UNIT SQ Q6H, (Reported) Ipratropium/Albuterol Sulfate 3 Ml Ampul.neb, 3 ML IH Q4H PRN for SHORTNESS OF BREATH, (Reported) Lactobacillus Acidophilus/Pect 1 Each Capsule, 2 EACH PEG BID, (Reported) Lansoprazole 30 Mg Capsule.dr, 30 MG PEG BID, (Reported) IF PT HAS A TUBE FEEDING: OPEN CAP AND MIX THE INTACT GRANULES IN 40ML OF APPLE JUICE Levothyroxine Sodium 75 Mcg Tablet, 150 MCG PO DAILY, (Reported) TAKE 1 HOUR BEFORE MEAL Metoprolol Tartrate 25 Mg Tablet, 25 MG PO BID WITH MEALS, (Reported) Nystatin 100,000 Unit/1 Ml Oral.susp, 500,000 UNIT PO TID, (Reported) STOP DATE 09-17-2019 SWISH AND SWALLOW Scopolamine 1 Each Patch.td72, 1 EACH TD Q72H, (Reported) REMOVE OLD PATCH- NO DATE GIVEN OF WHEN LAST PATCH WAS APPLIED Sennosides 8.6 Mg Tablet, 8.6 MG PO DAILY PRN for CONSTIPATION-5TH LINE, (Reported) Sucralfate 1 Gm/10 Ml Oral.susp, 1 GM PO Q6H, (Reported) Warfarin Sodium 5 Mg Tablet, 5 MG PO 1700, (Reported) Patient Home Medication List Home Medication List Reviewed: Yes Physical Exam-Cardiology Physical Exam Vital Signs/I&O 09/13/19 09/13/19 05:51 10:10 Temp 36.6 Pulse 85 Resp 16 B/P (MAP) 137/73 (94) Pulse Ox 97 O2 Delivery Room Air Room Air 09/13/19 00:00 Intake Total 1460 ml Balance 1460 ml Capillary Refill : Less Than 3 Seconds Constitutional: well-developed, well-nourished, other (Drowsy, awakens easily, oriented to self only) HEENT: hard of hearing Neck: No carotid bruit; carotid pulses are 2 + bilaterally Respiratory: No accessory muscle use, No respiratory distress; chest expansion is symmetric, chest is bilaterally symmetric, lungs clear to auscultation Cardiovascular: regular rate-rhythm (EKG shows SR with PVC's); No JVD; S1 and S2, systolic murmur Gastrointestinal: soft, audible bowel sounds, other (PEG tube in place) Extremities: no lower extremity edema bilateral Neurologic/Psychiatric: other (moves right extremities; does not move left uppe r or lower extremity) Skin: No rash on exposed areas, No ulcerations on exposed areas Data Review Labs Laboratory Tests 09/13/19 07:42: White Blood Count 7.7, Red Blood Count 3.52L, Hemoglobin 9.6L, Hematocrit 32L, Mean Corpuscular Volume 90, Mean Corpuscular Hemoglobin 27, Mean Corpuscular Hemoglobin Concent 30L, Red Cell Distribution Width 16.5H, Platelet Count 216, Mean Platelet Volume 10.4, Neutrophils (%) (Auto) 70, Lymphocytes (%) (Auto) 16, Monocytes (%) (Auto) 10, Eosinophils (%) (Auto) 3, Basophils (%) (Auto) 1, Neutrophils # (Auto) 5.4, Lymphocytes # (Auto) 1.3, Monocytes # (Auto) 0.8, Eosinophils # (Auto) 0.2, Basophils # (Auto) 0.1, Prothrombin Time 15.9H, INR Comment 1.2, Sodium Level 137, Potassium Level 4.0, Chloride Level 104, Carbon Dioxide Level 22, Anion Gap 11, Blood Urea Nitrogen 24H, Creatinine 0.84, Estimat Glomerular Filtration Rate > 60, BUN/Creatinine Ratio 29, Glucose Level 116H, Calcium Level 8.5, Corrected Calcium 9.0, Total Bilirubin 0.4, Aspartate Amino Transf (AST/SGOT) 34, Alanine Aminotransferase (ALT/SGPT) 33, Alkaline Phosphatase 71, Total Protein 6.2L, Albumin 3.4 A/P-Cardiology Assessment/Admission Diagnosis 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 Has had CABG and subsequent stents x 5 - details unknown Documented h/o GI bleed in the past - details unknown Documented h/o DVT for which he was on warfarin (prior to CVA as well) - details unknown H/O acute gangrenous cholecystitis for which he underwent cholecystectomy in July 2019 at [place], [place] Documented h/o prostate cancer Discussion and Recomendations Management of stroke per Dr Simon Request records regarding coronary status from outlying facility - nursing checking with family for juvenile probation officer and hospital where procedures were carried out Continue current medication regimen Documented that he is on warfarin for h/o DVT - management of warfarin per Medical team Monitor lab Mild anemia - management per Medical team Advise ASA 81 mg d/t reported h/o CAD with stenting We would like to thank Medical services for this consult Clinical Quality Measures DVT/VTE Risk/Contraindication: Risk Factor Score Per Nursin RFS Level Per Nursing on Admit: 4+=Very High KENNEDI SUÁREZ MD FACP FAC CCDS Sep 13, 2019 17:17
[2019-09-13] MEDS: warFARin 5 MG (COUMADIN) TAB PO SCH (17:32)
--- NOTE | 2019-09-13 17:52 | NUR ---
REQUEST FOR RECORDS SENT TO [facility] AND [facility] PER DR. SUÁREZ'S REQUEST. RECORDS REC'D AND PLACED IN CHART.
[2019-09-13 18:00] VITALS: BP 125/57
[2019-09-13] MEDS: ONDANSETRON 4 MG (ZOFRAN) ORAL DISSOLVE TAB PO PRN (20:32)
--- NOTE | 2019-09-13 21:30 | NUR ---
PATIENT HAS C/O NAUSEA. MODERATE AMOUNT OF EMESIS NOTED. NO OTHER C/O AT THIS TIME. PO ZOFRAN GIVEN.
--- NOTE | 2019-09-13 23:45 | NUR ---
PATIENT REPORTS RELIEF FROM N/V. ALSO NOTED TO HAVE LARGE BM X2.
[2019-09-14] MEDS: SUCRALFATE 1 GM (CARAFATE) TAB PO SCH ×4 (01:20→18:13)
--- NOTE | 2019-09-14 05:51 | PM&R Progress Note ---
Subjective HPI/CC On Admission Date Seen by Provider: Sep 14, 2019 Time Seen by Provider: 09:45 Subjective/Events-last exam 09/14/19: Had nausea and vomiting all last night Needs IV fluids gently so we'll start that today Urinary incontinence noted No fecal incontinence Holding tube feedings for right now Barium swallow today at 11:30 INR 1.4 will increase dose and provide Lovenox 09/13/19: Patient doing pretty well today Sleeping currently Therapy worked with him today Modified Barium Swallow scheduled Hemoglobin 9.6 Disoriented at times Bowels moved yesterday Conferred with RN Reviewed Therapy notes Checked Meds and Labs Review of Systems General: Fatigue, Malaise Neurological: Weakness Objective Exam Vital Signs Vital Signs Date Time Temp Pulse Resp B/P (MAP) Pulse Ox O2 Delivery O2 Flow Rate FiO2 09/14/19 09:00 Room Air 09/14/19 06:58 36.4 70 18 133/68 (89) 94 Capillary Refill : Less Than 3 Seconds General Appearance: No Apparent Distress, WD/WN, Chronically ill HEENT: PERRL/EOMI, Normal ENT Inspection, Pharynx Normal Neck: Full Range of Motion, Normal Inspection, Non Tender, Supple, Carotid Bruit Respiratory: Chest Non Tender, Lungs Clear, Normal Breath Sounds, No Accessory Muscle Use, No Respiratory Distress Cardiovascular: No Edema, No Gallop, No JVD, No Murmur, Normal Peripheral Pulses, Irregularly Irregular Gastrointestinal: Normal Bowel Sounds, No Organomegaly, No Pulsatile Mass, Non Tender, Soft Back: Normal Inspection, No CVA Tenderness, No Vertebral Tenderness Extremity: Normal Capillary Refill, Normal Inspection, Normal Range of Motion, Non Tender, No Calf Tenderness, Pedal Edema Neurologic/Psychiatric: Alert, Oriented x3, Normal Mood/Affect, cut press operator II-XII Norm as Tested, Aphasia, Facial Droop (left), Motor Weakness (left sided) Skin: Normal Color, Warm/Dry Lymphatic: No Adenopathy Results/Procedures Lab Laboratory Tests 09/14/19 08:19 Patient resulted labs reviewed. FIM Transfers Therapy Code Descriptions/Definitions Functional [place] Measure: 0=Not Assessed/NA 4=Minimal Assistance 1=Total Assistance 5=Supervision or Setup 2=Maximal Assistance 6=Modified [place] 3=Moderate Assistance 7=Complete IndependenceSCALE: Activities may be completed with or without assistive devices. 9-Ydagqqkeqd-nlxfvhv completes the activity by him/herself with no assistance from a helper. 5-Set-up or Clean-up Assistance-helper sets up or cleans up; patient completes activity. [place] assists only prior to or following the activity. 4-Supervision or Touching Assistance-helper provides verbal cues and/or touching/steadying and/or contact guard assistance as patient completes activity. Assistance may be provided throughout the activity or intermittently. 3-Partial/Moderate Assistance-helper does LESS THAN HALF the effort. [place] lifts, holds or supports trunk or limbs, but provides less than half the effort. 2-Substantial/Maximal Assistance-helper does MORE THAN HALF the effort. [place] lifts or holds trunk or limbs and provides more than half the effort. 6-Rxfoaescc-blghrt does ALL the effort. Patient does none of the effort to complete the activity. Or, the assistance of 2 or more helpers is required for the patient to complete the activity. If activity was not attempted, code reason: 7-Patient Refused. 9-Not Applicable-not attempted and the patient did not perform the activity before the current illness, exacerbation or injury. 10-Not Attempted due to Environmental Limitations-(lack of equipment, weather restraints, etc.). 88-Not Attempted due to Medical Conditions or Safety Concerns. Roll Left to Right (QC): 1 (dep to roll to his right, mod assist to roll to the left. ) Sit to Lying (QC): 1 Sit to Stand (QC): 1 (Assist of 3 to stand at // bars.) Chair/Erc-xy-Hvirt Xfer(QC): 1 (karson) Car Transfer (QC): 1 Gait Training Walk 10 feet (QC): 88 Walk 50 ft with 2 Turns(QC): 88 Walk 150 ft (QC): 88 Walking 10ft/uneven surface-QC: 88 Wheelchair Training Does the Pt Use a Wheelchair?: Yes Distance: 150'x2 Wheel 50 ft with 2 turns (QC): 1 Wheel 150 ft (QC): 1 Type of Wheelchair: Manual Stair Training 1 Step (curb) (QC): 88 4 Steps (QC): 88 12 Steps (QC): 88 Balance Picking up an Object (QC): 88 ADL-Treatment Eating (QC): 88 (See STUDENT ASSISTANT notes) Oral Hygiene (QC): 7 (denies oral sponge at this time) Bathing Location: Chest, Abdomen, Perineal Area Shower/Bathe Self (QC): 1 Upper Body Dressing (QC): 1 Lower Body Dressing (QC): 1 On/Off Footwear (QC): 2 Toileting Hygiene (QC): 1 (Pt incontinent. Unable to cleanse self or complete clothing manipulation) Toilet Transfer (QC): 88 (Using bedpan) Assessment/Plan Assessment and Plan Assess & Plan/Chief Complaint Assessment: CVA Left sided weakness Left sided neglect PEG tube status Dysphagia Aspiration hx with PNA CAD AF Coumadin treatment Plan: IRF protocol ST to work on dysphagia TF to be maintained Coumadin treatment Cardiology evaluation 09/13/19: Continue aggressive treatment Barium Swallow Monitor Hemoglobin 09/14/19: Give gentle IV fluids Increase INR with Coumadin with Lovenox bridge Barium swallow today (1) CVA (cerebral vascular accident) (2) Atrial fibrillation with normal ventricular rate (3) CAD (coronary artery disease) (4) Stented coronary artery (5) Dysphagia (6) Left-sided weakness (7) At risk for aspiration (8) PEG (percutaneous endoscopic gastrostomy) status (9) On warfarin therapy (10) Left-sided neglect (11) Facial droop KENZIE MORENO DO Sep 14, 2019 05:51
[2019-09-14 06:58] VITALS: BP 133/68
[2019-09-14 08:00] VITALS: BP 144/74
[2019-09-14] MEDS ORDERED: fluCOnazole (DIFLUCAN) 100 MG TAB PEG SCH (08:00)
--- NOTE | 2019-09-14 08:00 | NUR ---
VERY TIRED, BUT DENIES PAIN OR N/V AT THIS TIME.
[2019-09-14 08:38] LABS: INR 1.4 (0.8-1.4); PROTHROMBIN TIME PATIENT 17.2 SEC (12.2-14.7)
[2019-09-14] MEDS: ASPIRIN 81 MG CHEW (CHILDREN'S ASA) PO SCH (09:29)
[2019-09-14] MEDS: LACTOBACILLUS ACIDOPHILUS (PROBIOTIC) CAPSULE PEG SCH ×2 (09:29→21:37)
[2019-09-14] MEDS: meTOprolol TARTRATE 25 MG (LOPRESSOR) TABLET PO SCH ×2 (09:29→18:13)
[2019-09-14] MEDS: NYSTATIN ORAL SUSP 5 ML UDC PO SCH ×3 (09:30→21:37)
[2019-09-14] MEDS: polyethylene glycoL POWDER 17 GM (MIRALAX) PACK PO SCH ×2 (09:30→22:03)
[2019-09-14] MEDS: DOCUSATE SODIUM 100 MG (COLACE) CAP PO SCH ×2 (09:30→22:02)
[2019-09-14] MEDS: SENNA W/DOCUSATE (SENOKOT S) TABLET PO SCH ×2 (09:30→22:03)
[2019-09-14] MEDS: LEVOTHYROXINE 75 MCG (LEVOTHROID) TABLET PO SCH (09:33)
[2019-09-14] MEDS: PANTOPRAZOLE 2 MG/ML LIQUID 200 ML (PROTONIX) PEG SCH ×6 (09:34→22:02)
--- NOTE | 2019-09-14 10:07 | Progress Note - Cardiology ---
Cardiology SOAP Progress Note Subjective: Lying in bed. More alert and conversive today. No c/o CP or SOB. Objective: I&O/Vital Signs 09/17/19 09/17/19 05:43 07:09 Temp 36.5 Pulse 76 Resp 18 B/P (MAP) 137/61 (86) Pulse Ox 95 O2 Delivery Room Air Room Air 09/17/19 00:00 Intake Total 674 ml Balance 674 ml Constitutional: well-developed, well-nourished, other (Drowsy, awakens easily, oriented to self only) Respiratory: No accessory muscle use, No respiratory distress; chest expansion is symmetric, chest is bilaterally symmetric, lungs clear to auscultation Cardiovascular: regular rate-rhythm (EKG shows SR with PVC's); No JVD; S1 and S2, systolic murmur Gastrointestional: soft, audible bowel sounds, other (PEG tube in place) Extremities: no lower extremity edema bilateral Neurologic/Psychiatric: other (moves right extremities; does not move left upper or lower extremity) Skin: No rash on exposed areas, No ulcerations on exposed areas Results/Procedures: Labs Laboratory Tests 09/17/19 04:49: White Blood Count 7.8, Red Blood Count 3.72L, Hemoglobin 10.0L, Hematocrit 32L, Mean Corpuscular Volume 87, Mean Corpuscular Hemoglobin 27, Mean Corpuscular Hemoglobin Concent 31L, Red Cell Distribution Width 16.0H, Platelet Count 296, Mean Platelet Volume 10.4, Neutrophils (%) (Auto) 67, Lymphocytes (%) (Auto) 18, Monocytes (%) (Auto) 12, Eosinophils (%) (Auto) 3, Basophils (%) (Auto) 1, Neutr ophils # (Auto) 5.2, Lymphocytes # (Auto) 1.4, Monocytes # (Auto) 0.9, Eosinophils # (Auto) 0.2, Basophils # (Auto) 0.0, Prothrombin Time 17.4H, INR Comment 1.4, Sodium Level 135, Potassium Level 4.2, Chloride Level 102, Carbon Dioxide Level 25, Anion Gap 8, Blood Urea Nitrogen 28H, Creatinine 0.93, Estimat Glomerular Filtration Rate > 60, BUN/Creatinine Ratio 30, Glucose Level 92, Calcium Level 8.6, Corrected Calcium 9.1, Total Bilirubin 0.5, Aspartate Amino Transf (AST/SGOT) 25, Alanine Aminotransferase (ALT/SGPT) 27, Alkaline Phosphatase 73, Total Protein 6.2L, Albumin 3.4 A/P: Assessment: 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 Dias at [facility] Records from [facility] report h/o CVA x 3 (2008, 2013 x2) H/O PE in 2016 tx at [facility] Dysphagia - PEG tube in place HTN CAD - CABG x 4 vessel in February 2016 at [facility] by Dr. Regan - quadruple bypass with VILLATORO to LAD, saphenous vein graft to OM 1, saphenous vein T graft to D1, saphenous vein graft to LPDA. 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 Documented h/o GI bleed in the past - details unknown H/O unprovoked DVT in 2003 tx at [facility] H/O hematology w/u at [facility] which did not show hypercoagulable state H/O acute gangrenous cholecystitis for which he underwent cholecystectomy in July 2019 at [place], [place] Documented h/o prostate cancer Plan: Management of stroke per Dr Simon Reviewed extensive records from [facility] and history updated Continue current medication regimen Adjust warfarin - cover with Lovenox until therapeutic Monitor lab Mild anemia - management per Medical team Advise ASA 81 mg d/t reported h/o SAMANTHA SALDIVAR Sep 14, 2019 10:07
[2019-09-14 10:18] LABS: BASOPHILS % (AUTO) 1 % (0-10); EOSINOPHILS # (AUTO) 0.2 10^3/uL (0.0-0.3); EOSINOPHILS % (AUTO) 3 % (0-10); HEMATOCRIT 34 % (40-54); HEMOGLOBIN 10.2 G/DL (13.3-17.7); LYMPHOCYTES # (AUTO) 1.2 X 10^3 (1.0-4.0); LYMPHOCYTES % (AUTO) 17 % (12-44); MEAN CORPUSCULAR HEMOGLOBIN 27 PG (25-34); MEAN CORPUSCULAR HGB CONC 30 G/DL (32-36); MEAN CORPUSCULAR VOLUME 90 FL (80-99); MEAN PLATELET VOLUME 10.8 FL (7.4-10.4); MONOCYTES # (AUTO) 0.7 X 10^3 (0.0-1.0); MONOCYTES % (AUTO) 10 % (0-12); NEUTROPHILS # (AUTO) 4.8 X 10^3 (1.8-7.8); NEUTROPHILS % (AUTO) 69 % (42-75); PLATELET COUNT 252 10^3/uL (130-400); RED CELL DISTRIBUTION WIDTH 17.1 % (10.0-14.5); WHITE BLOOD COUNT 6.9 10^3/uL (4.3-11.0)
[2019-09-14 10:30] LABS: BUN/CREATININE RATIO 21; CARBON DIOXIDE 23 MMOL/L (21-32); CHLORIDE 102 MMOL/L (98-107); CREATININE SERUM 0.94 MG/DL (0.60-1.30); POTASSIUM 4.3 MMOL/L (3.6-5.0); SODIUM 138 MMOL/L (135-145)
[2019-09-14 10:31] LABS: ALANINE AMINOTRANSFERASE 43 U/L (0-55); ALBUMIN 3.5 GM/DL (3.2-4.5); ALKALINE PHOSPHATASE 73 U/L (40-136); BILIRUBIN,TOTAL 0.4 MG/DL (0.1-1.0); CALCIUM 9.1 MG/DL (8.5-10.1); GFR ESTIMATED > 60; GLUCOSE 103 MG/DL (70-105); TOTAL PROTEIN 6.5 GM/DL (6.4-8.2)
--- NOTE | 2019-09-14 11:00 | NUR ---
IV STARTED IN RIGHT ARM AND CLINIMIX FLUIDS STARTED. KRISTINE MANAGER TRACK RECOMMENDS GIVING STOMACH A REST TODAY AND RESTART JEVITY BOLUS AT 0600 IN AM. OKAY TO GIVE MEDS AND WATER PER PEG. UP IN RECLINER.
--- NOTE | 2019-09-14 11:17 | Physical Therapy Daily Note ---
PT Daily Note-Current Subjective Agreeable to PT. Notes that he slept well last night. Nursing reports he had been nauseated earlier today, but denies nausea at this time. Mental Status Patient Orientation: Person (unable to fully assess the other) Transfers SCALE: Activities may be completed with or without assistive devices. 4-Qgkvnipmsw-pfizghj completes the activity by him/herself with no assistance fr om a helper. 5-Set-up or Clean-up Assistance-helper sets up or cleans up; patient completes activity. [place] assists only prior to or following the activity. 4-Supervision or Touching Assistance-helper provides verbal cues and/or touching/steadying and/or contact guard assistance as patient completes activity. Assistance may be provided throughout the activity or intermittently. 3-Partial/Moderate Assistance-helper does LESS THAN HALF the effort. [place] lifts, holds or supports trunk or limbs, but provides less than half the effort. 2-Substantial/Maximal Assistance-helper does MORE THAN HALF the effort. [place] lifts or holds trunk or limbs and provides more than half the effort. 3-Fwaljvsqw-cqnkhf does ALL the effort. Patient does none of the effort to complete the activity. Or, the assistance of 2 or more helpers is required for the patient to complete the activity. If activity was not attempted, code reason: 7-Patient Refused. 9-Not Applicable-not attempted and the patient did not perform the activity before the current illness, exacerbation or injury. 10-Not Attempted due to Environmental Limitations-(lack of equipment, weather restraints, etc.). 88-Not Attempted due to Medical Conditions or Safety Concerns. Roll Left & Right (QC): 1 karson transfer bed to wheelchair; karson transfer wc to radiology chair for MBS. Wheelchair Training Does the Pt Use a Wheelchair?: Yes Wheel 50 ft with 2 turns (QC): 2 (mod assist to guide chair.) Type of Wheelchair: Manual Wheelchair mobility training with focus on use of R U/LE to propel the chair. Pt able to propel forward with assist to keep in a straight line, we did work on him guiding the chair to avoid obstacles. Practiced 180 degree turning to the right and to the left . He was able to place his right foot correctly to facilitate turn, still requires mod assist to complete but he participates well. WC mobility x 50 ft, 75 ft, 50 ft. with turning. Treatments Sit to hvac installation technician the // bars with assist of 4 staff. Pt pulls up with the right UE. Assist to block B LE for positioning, assist to facilitate hip extension and assist to keep left foot on the floor and to facilitate B knee extension. Worked on pt activating upright posture using a mirror for feedback as well as verbal and tactile cues. Sit to stand x 3 reps with dep assist, although pt able to participate and able to bear weight. Skill of 2 clinicians indicated due to the complexity of this patient's deficits that require heavy verbal and tactile skilled cues for U and LE use, postural control, head positioning. Pt is highly involved in deficits and use of PT/OT together allows for maximum skilled intervention for optimal results. Cooperation of the 2 disciplines allows for treatment of U/LE as well as attention to right and left side. Assessment Current Status: Good Progress Pt presents with improved self correction of head position this visit and able to correct more readily with cues. Pt uses visual feedback well while standing at // bars. On initial standing attempt, pt activated gluts with verbal and tactile cues to facilitate hip extension. As pt fatigued, less able to facilitate. Improved WC propulsion, demonstrated ability to participate in turning, backing and obstacle avoidance. PT Short Term Goals Short Term Goals Time Frame: Sep 19, 2019 Roll Left & Right: 2 Sit to lyin Lying to sitting on side of be: 2 Sit to stand: 2 Chair/eta-zd-xbmbj transfer: 2 Wheel 50ft w/2 turns: 2 Wheel 150 feet: 2 PT Director Treasurer Goals Director Treasurer Goals PT Director Treasurer Goals Time Frame: Oct 03, 2019 Roll Left & Right (QC): 3 Sit to Lying (QC): 3 Lying-Sitting on Side/Bed(QC): 3 Sit to Stand (QC): 3 Chair/Ift-uh-Ymdpa Xfer(QC): 3 Toilet Transfer (QC): 3 Car Transfer (QC): 3 Does the Patient Walk: No and Walking Goal NOT indicated Walk 10 feet (QC): 88 Walk 50ft with 2 Turns (QC): 88 Walk 150 ft (QC): 88 Walking 10ft on Uneven Surface: 88 1 Step (curb) (QC): 88 4 Steps (QC): 88 12 Steps (QC): 88 Picking up an Object (QC): 88 Wheel 50 feet with 2 turns (QC: 3 Wheel 150 feet: 3 PT Plan Problem List Problem List: Activity Tolerance, Functional Strength, Safety, Balance, Gait, Transfer, Bed Mobility Treatment/Plan Treatment Plan: Continue Plan of Care Treatment Plan: Bed Mobility, Education, Functional Activity Aliyah, Functional Strength, Group Therapy, Gait, Safety, Therapeutic Exercise, Transfers Treatment Duration: Oct 03, 2019 Frequency: At least 5 of 7 days/Wk (IRF) Estimated Hrs Per Day: 1.5 hours per day Patient and/or Family Agrees t: Yes Time/GCodes Time In: 1015 Time Out: 1100 Total Billed Treatment Time: 45 Total Billed Treatment visit WC 15 FA 30 Co treat with OT 45 min CALLIE HAWKINS PT Sep 14, 2019 11:17
--- NOTE | 2019-09-14 11:30 | NUR ---
BARIUM SWALLOW WAS DONE. IS A HIGH ASPIRATION RISK AND NEEDS TO STAY ON TUBE FEEDINGS. ORAL CARE ONLY.
[2019-09-14] MEDS: AA 4.25% W/LYTES IN D5W IV SOL 1,000 ML IV SCH ×2 (11:48→21:37)
--- NOTE | 2019-09-14 11:50 | Diagnostic Imaging Report ---
INDICATION: CVA. Procedure was performed in conjunction with speech pathology. Video fluoroscopy was performed during the swallowing of barium in multiple consistencies. 2 minutes and 18 seconds of fluoroscopic time was utilized. Patient ingested thin liquid with spoon and through a straw as well as puree. This study is very limited. Patient had a markedly prolonged oral phase. Only limited swallows were performed. No aspiration was observed. There was moderate amount of vallecular residue with multiple consistencies. IMPRESSION: Limited modified swallow demonstrating a marked delay in oral phase. There is moderate vallecular residue present. No aspiration was observed. Dictated by: Dictated on workstation # [id number]
[2019-09-14] MEDS: ENOXAPARIN 40 MG/0.4 ML (LOVENOX) SYR SQ SCH (11:59)
--- NOTE | 2019-09-14 13:13 | Occupational Ther Daily Note ---
OT Current Status-Daily Note Subjective Pt alert, lying on L side in bed. Pt agrees to therapy. Increased time for verbal responses to questions. No c/o pain. Mental Status/Objective Patient Orientation: Person, Place ADL-Treatment OT/PT co-treat ([id number]), skills of 2 clinician required for neuromuscular retraining, skilled instructions for modifications, transfers, standing and ADLs. PT working on bed mobility, w/c mobility, transfers and standing. OT working on ADLs, assist with positioning L UE and stabilizing pt during standing tasks. Initially assist to L UE, placed wash cloth in R hand then pt required hand over hand to bring R UE over to L side of body to cleanse L underarm. Pt attempted to cleanse 3x's then required assist to cleanse thoroughly. Assist given to cleanse upper body in supine. Assist to roll side to side and hold position with bathing and lower body positioning. Dependent with lower body dressing in supine. Max A for footwear. Pt demonstrates progress in coming to midline with eyes and head. Sarah lift from bed to w/c then pt able to propel w/c with assist to steer. Therapy Code Descriptions/Definitions Functional [place] Measure: 0=Not Assessed/NA 4=Minimal Assistance 1=Total Assistance 5=Supervision or Setup 2=Maximal Assistance 6=Modified [place] 3=Moderate Assistance 7=Complete IndependenceSCALE: Activities may be completed with or without assistive devices. 0-Gvsqanoled-snpduho completes the activity by him/herself with no assistance from a helper. 5-Set-up or Clean-up Assistance-helper sets up or cleans up; patient completes activity. [place] assists only prior to or following the activity. 4-Supervision or Touching Assistance-helper provides verbal cues and/or touching/steadying and/or contact guard assistance as patient completes activity. Assistance may be provided throughout the activity or intermittently. 3-Partial/Moderate Assistance-helper does LESS THAN HALF the effort. [place] lift s, holds or supports trunk or limbs, but provides less than half the effort. 2-Substantial/Maximal Assistance-helper does MORE THAN HALF the effort. [place] lifts or holds trunk or limbs and provides more than half the effort. 0-Olgkgvvdc-aoofch does ALL the effort. Patient does none of the effort to complete the activity. Or, the assistance of 2 or more helpers is required for the patient to complete the activity. If activity was not attempted, code reason: 7-Patient Refused. 9-Not Applicable-not attempted and the patient did not perform the activity before the current illness, exacerbation or injury. 10-Not Attempted due to Environmental Limitations-(lack of equipment, weather restraints, etc.). 88-Not Attempted due to Medical Conditions or Safety Concerns. Upper Body Dressing (QC): 1 (Assist to lean forward and assist to manipulate clothing) Lower Body Dressing (QC): 1 On/Off Footwear: 2 Toileting Hygiene (QC): 1 (incontinent) Other Treatment Assist x3 for standing at parallel bars, see PT note for progress. After ses jesse, pt left in care of radiology. All needs met. OT Short Term Goals Short Term Goals Time Frame: Sep 19, 2019 Shower/bathe self: 2 Upper body dressin Lower body dressin OT Meat Packager Goals Retirement Goals Time Frame: Oct 03, 2019 Eating (QC): 4 Oral Hygiene (QC): 4 Toileting Hygiene (QC): 3 Shower/Bathe Self (QC): 3 Upper Body Dressing (QC): 3 Lower Body Dressing (QC): 2 On/Off Footwear (QC): 2 Additional Goals: 1-Demonstrate ADL Tasks, 2-Verbalize Understanding, 3- ImproveStrength/Aliyah 1=Demonstrate adherence to instructed precautions during ADL tasks. 2=Patient will verbalize/demonstrate understanding of assistive devices/modifications for ADL. 3=Patient will improve strength/tolerance for activity to enable patient to perform ADL's. OT Education/Plan Problem List/Assessment Assessment: Decreased Activ Tolerance, Decreased Safety Aware, Decreased UE Strength, Dependent Transfers, Impaired Bed Mobility, Impaired Cognition, Impaired Coordination, Impaired Funct Balance, Impaired I ADL's, Impaired Self- Care Skills, Restricted Funct UE ROM, Visual-Perceptual Deficit Discharge Recommendations Plan/Recommendations: Continue POC Treatment Plan/Plan of Care Patient would benefit from OT for education, treatment and training to promote independence in ADL's, mobility, safety and/or upper extremity function for ADL's. Plan of Care: ADL Retraining, Caregiver Training, Functional Mobility, Group Exercise/Act as Ind, Orthotic Fitting/Training, UE Funct Exercise/Act, UE Neuromus Re-Ed/Coord, Visual/Perceptual Retrain, W/C Management Training Treatment Duration: Oct 03, 2019 Frequency: At least 5 of 7 days/Wk (IRF) Estimated Hrs Per Day: 1.5 hours per day Agreement: Yes Rehab Potential: Poor Time/GCodes Start Time: 10:00 Stop Time: 11:15 Total Time Billed (hr/min): 75 Billed Treatment Time 1 visit-ADL 3 (45 min) NM 2 (30 min) co-treat with PT 45 min ([id number]). Individual 30 min ([id number]) CALLIE LARIOS Sep 14, 2019 13:13
[2019-09-14] MEDS ORDERED: WARF4TAB3 PO (13:18)
[2019-09-14] MEDS ORDERED: LEVO150T6 PO (13:18)
[2019-09-14] MEDS ORDERED: MULT-1136 PO (13:18)
[2019-09-14] MEDS ORDERED: ASPI-1238 PO (13:18)
--- NOTE | 2019-09-14 13:56 | Physical Therapy Daily Note ---
PT Daily Note-Current Subjective Pt presents reclined in chair with BLEs elevated upon arrival to room, agreeable to therapy treatment at this time. Appearance Following session, pt in bed with present at bedside. All needs met at this time. Mental Status Patient Orientation: Person (Unable to full assess the rest ) Attachments: IV Transfers SCALE: Activities may be completed with or without assistive devices. 8-Zpurbxlfmf-oqkxnfl completes the activity by him/herself with no assistance from a helper. 5-Set-up or Clean-up Assistance-helper sets up or cleans up; patient completes activity. [place] assists only prior to or following the activity. 4-Supervision or Touching Assistance-helper provides verbal cues and/or touching/steadying and/or contact guard assistance as patient completes activity. Assistance may be provided throughout the activity or intermittently. 3-Partial/Moderate Assistance-helper does LESS THAN HALF the effort. [place] lifts, holds or supports trunk or limbs, but provides less than half the effort. 2-Substantial/Maximal Assistance-helper does MORE THAN HALF the effort. [place] lifts or holds trunk or limbs and provides more than half the effort. 2-Qmtghpjxb-mgaizk does ALL the effort. Patient does none of the effort to complete the activity. Or, the assistance of 2 or more helpers is required for the patient to complete the activity. If activity was not attempted, code reason: 7-Patient Refused. 9-Not Applicable-not attempted and the patient did not perform the activity before the current illness, exacerbation or injury. 10-Not Attempted due to Environmental Limitations-(lack of equipment, weather restraints, etc.). 88-Not Attempted due to Medical Conditions or Safety Concerns. Roll Left & Right (QC): 1 (Max A to roll L, dependent to roll R ) Sit to Lying (QC): 0 Neuromuscular Pt sat EOB x 15' with Max A x2 to maintain upright position. Pt able to WB through BUE. Cueing to maintain midline positioning, as pt tends to lean towards to L and with RUE reaching activities, pt falls backwards but it able to catch and return to upright positioning with Min A. Treatments Pt transferred from recliner to bed via Sarah lift. Pt then rolled R & L to remove lift sleeve before transferring to sit EOB and received haircut from . Following 15' sitting EOB, pt returned to supine in bed with present finishing haircut. RN notified to position pt following haircut. Assessment Current Status: Good Progress Pt demonstrated improved sense of midline activity and improved ability to WB through BUE during sitting. Pt continues to require MAX A to transfer from supine to sit and is dependent to return to supine. PT Short Term Goals Short Term Goals Time Frame: Sep 19, 2019 Roll Left & Right: 2 Sit to lyin Lying to sitting on side of be: 2 Sit to stand: 2 Chair/urx-go-eymot transfer: 2 Wheel 50ft w/2 turns: 2 Wheel 150 feet: 2 PT Culinary Art Teacher Goals Intermediate Goals PT Intermediate Goals Time Frame: Oct 03, 2019 Roll Left & Right (QC): 3 Sit to Lying (QC): 3 Lying-Sitting on Side/Bed(QC): 3 Sit to Stand (QC): 3 Chair/Sdy-cr-Leocj Xfer(QC): 3 Toilet Transfer (QC): 3 Car Transfer (QC): 3 Does the Patient Walk: No and Walking Goal NOT indicated Walk 10 feet (QC): 88 Walk 50ft with 2 Turns (QC): 88 Walk 150 ft (QC): 88 Walking 10ft on Uneven Surface: 88 1 Step (curb) (QC): 88 4 Steps (QC): 88 12 Steps (QC): 88 Picking up an Object (QC): 88 Wheel 50 feet with 2 turns (QC: 3 Wheel 150 feet: 3 PT Plan Problem List Problem List: Activity Tolerance, Functional Strength, Safety, Balance, Gait, Transfer, Bed Mobility Treatment/Plan Treatment Plan: Continue Plan of Care Treatment Plan: Bed Mobility, Education, Functional Activity Aliyah, Functional Strength, Group Therapy, Gait, Safety, Therapeutic Exercise, Transfers Treatment Duration: Oct 03, 2019 Frequency: At least 5 of 7 days/Wk (IRF) Estimated Hrs Per Day: 1.5 hours per day Patient and/or Family Agrees t: Yes Time/GCodes Time In: 1315 Time Out: 1345 Total Billed Treatment Time: 30 Total Billed Treatment 1 visit NM (30') ESMER BARRAZA PT Sep 14, 2019 13:56
--- NOTE | 2019-09-14 14:42 | ST Mod Barium Swallow ---
Speech Evaluation-General Medical Diagnosis CVA Onset Date: Aug 02, 2019 Therapy Diagnosis Therapy Diagnosis: Oropharyngeal-Dysphagia Precautions Precautions: Aspiration Referral Referring Physician: Dr. Simon Medical History Pertinent Medical History: CVA, HTN Reviewed History: Yes Social History Current Living Status: Significant Other Speech Mod Barium Swallow Prior Level of Function Patient lived in the home with his SO where he was independent for his daily needs. Oral Motor Skills Dentition Natural Dentures: Partial Upper Dentition Comments: Patient has full upper denture Lingual Protrusion: Abnormal Lingual Protrusion Abnormal: R Lingual ROM: Abnormal Lingual Strength: Abnormal Velum: Abnormal Volitional Dry Swallow: Yes Voluntary Cough: Yes Textures-Lateral View Lateral View Food Presentation: Thin Liquid via Spoon, Thin Liquid via Straw, Pureed Solids Oral Phase Labial Closure: Mild Impairment Bolus Formation Pooling L/R: Moderate Impairment Bolus Formation Placement: Moderate Impairment Mastication Rotary Chew: Severe Impairment A/P Lingual Propulsion: Severe Impairment Lingual Movement: Moderate Impairment Patient has a significant prolonged oral phase. Oral Phase Residue: Minimal Impairment Pharyngeal Phase Epiglottic Movement: Mild Impairment Laryngeal Elevation: Mild Impairment Vallecular Residue: Moderate Patient hadd multiple swallow attempts to clear Pharyngeal Wall Residue: Mild Other Pharyngeal Observations: Marked delay in oral phase with moderate vallecular residue. Patient was unable to clear residue with multiple swallows. No aspiration was observed. Esophageal Phase A/P Esophageal Propulsion Time: Greater Than 5 Seconds Abnormal Performed-A/P View Not Applicable/Performed Summary/Impressions Oral Phase Impression: Severe Impairment Patient is a pleasant 79 y/o male who was admitted to the ARU s/p CVA from [facility] post 3 weeks. Patient had a PEG tube upon arrival and was reported to receive mary sips of water. Patient also has left sided weakness orally. Patient completed a Modified Barium Swallow Study this date. Results indicate with a marked delay in oral phase. Patient demo tongue pumping with moderate difficulty with A-P transfer. Post swallow with all consistencies presented he showed a moderate vallecular residue. No aspiration was observed. Patient is recommended to received all intake via PEG tube and remain NPO. Speech Short Term Goals Short Term Goals Short Term Goals 1) Patient will complete expressive language exercises at 90% or greater with minimal cues. 2) Patient will complete OME x10 with 90% or greater with minimal cues. 3) Patient will complete oral trials with 90% or greater without s/s of aspiration. Speech Fpc Goals Biotech Production Specialist Goals Patient will improve speech production for effective communication of his wants/needs. Patient will maintain adequate nutrition/hydration via PEG and/or oral intake. Speech-Plan Patient/Family Goals Patient/Family Goals: Patient plans on returning to his home with his SO, however due to his needs this may not be the best discharge placement. Treatment Plan Speech Therapy Treatment Plan: Continue Plan of Care Treatment Duration: Sep 28, 2019 Frequency: 4 times per week (Patient will receive skilled ST 4-5x per week) Estimated Hrs Per Day: .5 hour per day Rehab Potential: Poor Barriers to Learning: Patient's recent CVA Pt/Family Agrees to Plan: Yes Safety Risks/Education Teaching Recipient: Patient Teaching Methods: Demonstration, Discussion Response to Teaching: Verbalize Understanding, Return Demonstration Education Topics Provided: Patient's NPO status Time Speech Therapy Time In: 11:30 Speech Therapy Time Out: 12:00 Total Billed Time: 30 Billed Treatment Time 1, MOD, DYST No EARNEST MUNOZ Sep 14, 2019 14:42
--- NOTE | 2019-09-14 16:38 | NUR ---
NO N/V OR DIARRHEA TODAY. SHAVED SELF AND DID A GOOD JOB. ANTICOAGULANTS INCREASED DUE TO SUBTHERAPEUTIC INR AND HISTORY OF CLOTS. AT BEDSIDE.
[2019-09-14] MEDS ORDERED: warFARin 7.5 MG (COUMADIN) TAB PO NR (17:00)
--- NOTE | 2019-09-14 17:36 | NUR ---
CM/SS ADMISSION Patient was admitted to ARU 09/12/19 from [facility] for CVA, left sided weakness/neglect, PEG tube, dysphagia, aspiration history with pneumonia, CAD, AF, coumadin treatment. Prior to CVA patient was IADL at home with his . He has been hospitalized since July 31, 2019, initially for cholecystectomy, onset of CVA symptoms August 01, and resultant lengthy hospital course. Patient's goal is to return home, to be determined by progress and ability to provide appropriate care plan at home. PCP: Dr. Ginette Campbell MD, [facility] PHARMACY: [facility] INSURANCE: [employer] DME: Reported by patient to be FWW, standard point cane, show horn. Therapy team to recommend assistive devices appropriate to patients performance and safety. BARRIERS TO DISCHARGE PLAN: To be determined. Lengthy hospital stay, deconditioned, multiple comorbidities. Post ARU environment will need to be matched with patient's care needs. CONTACTS: Oksanajaren Cardozo, Spouse [id number] [place] [id number] Marisela Garduno [phone] Listed but not confirmed as to relationship. Patient understands the purpose and process of the weekly patient care conference and that his first review will be Tuesday, September 19, 2019. Attempted to call spouse, not available. Followup next week. Addendum: 09/14/19 at 1800 by PALLAVI MOULTON CORRECTION: Oksana Cardozo's number is: [phone] Maturity Checker sent to Registration for edit to demographics. Marisela Garduno is patient's daughter, resides in [place]. Ray Cardozo, son, in [place], [place]. Amalia Mohr, Daughter, Teresa [place]
[2019-09-14 18:30] VITALS: BP 138/67
--- NOTE | 2019-09-14 18:49 | Progress Note - Cardiology ---
Cardiology SOAP Progress Note Subjective: He does not report any symptoms Does not report cp or shortness of breath or palp or syncope Objective: I&O/Vital Signs 09/14/19 09/14/19 09/14/19 09/14/19 06:58 08:00 09:00 18:30 Temp 36.4 36.9 Pulse 70 84 91 Resp 18 18 B/P (MAP) 133/68 (89) 144/74 (97) 138/67 (90) Pulse Ox 94 92 O2 Delivery Room Air Room Air Room Air 09/14/19 00:00 Intake Total 1348 ml Balance 1348 ml Constitutional: well-developed, well-nourished, other (Drowsy, awakens easily, oriented to self only) Respiratory: No accessory muscle use, No respiratory distress; chest expansion is symmetric, chest is bilaterally symmetric, lungs clear to auscultation Cardiovascular: regular rate-rhythm (EKG shows SR with PVC's); No JVD; S1 and S2, systolic murmur Gastrointestional: soft, audible bowel sounds, other (PEG tube in place) Extremities: no lower extremity edema bilateral Neurologic/Psychiatric: other (moves right extremities; does not move left upper or lower extremity) Skin: No rash on exposed areas, No ulcerations on exposed areas Results/Procedures: Labs Laboratory Tests 09/14/19 08:19: White Blood Count 6.9, Red Blood Count 3.74L, Hemoglobin 10.2L, Hematocrit 34L, Mean Corpuscular Volume 90, Mean Corpuscular Hemoglobin 27, Mean Corpuscular Hemoglobin Concent 30L, Red Cell Distribution Width 17.1H, Platelet Count 252, Mean Platelet Volume 10.8H, Neutrophils (%) (Auto) 69, Lymphocytes (%) (Auto) 17, Monocytes (%) (Auto) 10, Eosinophils (%) (Auto) 3, Basophils (%) (Auto) 1, Neutrophils # (Auto) 4.8, Lymphocytes # (Auto) 1.2, Monocytes # (Auto) 0.7, Eosinophils # (Auto) 0.2, Basophils # (Auto) 0.0, Prothrombin Time 17.2H, INR Comment 1.4, Sodium Level 138, Potassium Level 4.3, Chloride Level 102, Carbon Dioxide Level 23, Anion Gap 13, Blood Urea Nitrogen 20H, Creatinine 0.94, Estimat Glomerular Filtration Rate > 60, BUN/Creatinine Ratio 21, Glucose Level 103, Calcium Level 9.1, Corrected Calcium 9.5, Total Bilirubin 0.4, Aspartate Amino Transf (AST/SGOT) 45H, Alanine Aminotransferase (ALT/SGPT) 43, Alkaline Phosphatase 73, Total Protein 6.5, Albumin 3.5 Laboratory Tests 09/13/19 07:42 09/14/19 08:19 A/P: Assessment: 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 Dias at [facility] Records from [facility] report h/o CVA x 3 (2008, 2013 x2) H/O PE in 2016 tx at [facility] Dysphagia - PEG tube in place HTN CAD - CABG x 4 vessel in February 2016 at [facility] by Dr. Regan - quadruple bypass with VILLATORO to LAD, saphenous vein graft to OM 1, saphenous vein T graft to D1, saphenous vein graft to LPDA. 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 Documented h/o GI bleed in the past - details unknown H/O unprovoked DVT in 2003 tx at [facility] H/O hematology w/u at [facility] which did not show hypercoagulable state H/O acute gangrenous cholecystitis for which he underwent cholecystectomy in July 2019 at [place], [place] Documented h/o prostate cancer Plan: Management of stroke per Dr Simon Reviewed extensive records from [facility] and history updated Continue current medication regimen Adjust warfarin - cover with Lovenox until therapeutic Monitor lab Mild anemia - management per Medical team Advise ASA 81 mg d/t reported h/o [facility] Sep 14, 2019 18:49
[2019-09-15] MEDS: SUCRALFATE 1 GM (CARAFATE) TAB PO SCH ×4 (00:38→18:04)
[2019-09-15 05:04] VITALS: BP 131/73
[2019-09-15 05:44] LABS: INR 1.6 (0.8-1.4); PROTHROMBIN TIME PATIENT 19.4 SEC (12.2-14.7)
[2019-09-15] MEDS: LEVOTHYROXINE 75 MCG (LEVOTHROID) TABLET PO SCH (06:09)
--- NOTE | 2019-09-15 07:27 | PM&R Progress Note ---
Subjective HPI/CC On Admission Date Seen by Provider: Sep 15, 2019 Time Seen by Provider: 13:15 Subjective/Events-last exam 09/15/19: Patient had been doing pretty well when I rounded No more nausea and vomiting like yesterday Tube feeding was restarted slowly I stopped the Clinimix since tube feedings were started N.p.o. 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 Flores general surgery was consulted and checked hemoglobin and hematocrit. 09/14/19: Had nausea and vomiting all last night Needs IV fluids gently so we'll start that today Urinary incontinence noted No fecal incontinence Holding tube feedings for right now Barium swallow today at 11:30 INR 1.4 will increase dose and provide Lovenox 09/13/19: Patient doing pretty well today Sleeping currently Therapy worked with him today Modified Barium Swallow scheduled Hemoglobin 9.6 Disoriented at times Bowels moved yesterday Conferred with RN Reviewed Therapy notes Checked Meds and Labs Review of Systems General: Fatigue, Malaise Gastrointestinal: Melena Objective Exam Vital Signs Vital Signs Date Time Temp Pulse Resp B/P (MAP) Pulse Ox O2 Delivery O2 Flow Rate FiO2 09/15/19 09:45 Room Air 09/15/19 08:31 99 127/78 (94) 09/15/19 05:04 36.8 18 97 Capillary Refill : Less Than 3 Seconds General Appearance: No Apparent Distress, WD/WN, Chronically ill HEENT: PERRL/EOMI, Normal ENT Inspection, Pharynx Normal Neck: Full Range of Motion, Normal Inspection, Non Tender, Supple, Carotid Bruit Respiratory: Chest Non Tender, Lungs Clear, Normal Breath Sounds, No Accessory Muscle Use, No Respiratory Distress Cardiovascular: No Edema, No Gallop, No JVD, No Murmur, Normal Peripheral Pulses, Irregularly Irregular Gastrointestinal: Normal Bowel Sounds, No Organomegaly, No Pulsatile Mass, Non Tender, Soft Back: Normal Inspection, No CVA Tenderness, No Vertebral Tenderness Extremity: Normal Capillary Refill, Normal Inspection, Normal Range of Motion, Non Tender, No Calf Tenderness, Pedal Edema Neurologic/Psychiatric: Alert, Oriented x3, Normal 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 FIM Transfers Therapy Code Descriptions/Definitions Functional Mcleod Measure: 0=Not Assessed/NA 4=Minimal Assistance 1=Total Assistance 5=Supervision or Setup 2=Maximal Assistance 6=Modified Mcleod 3=Moderate Assistance 7=Complete IndependenceSCALE: Activities may be completed with or without assistive devices. 1-Ehlgjamcbm-dqgscok completes the activity by him/herself with no assistance from a helper. 5-Set-up or Clean-up Assistance-helper sets up or cleans up; patient completes activity. [place] assists only prior to or following the activity. 4-Supervision or Touching Assistance-helper provides verbal cues and/or touching/steadying and/or contact guard assistance as patient completes activity. Assistance may be provided throughout the activity or intermittently. 3-Partial/Moderate Assistance-helper does LESS THAN HALF the effort. [place] lifts, holds or supports trunk or limbs, but provides less than half the effort. 2-Substantial/Maximal Assistance-helper does MORE THAN HALF the effort. [place] lifts or holds trunk or limbs and provides more than half the effort. 5-Msjzrtgua-siyyve does ALL the effort. Patient does none of the effort to complete the activity. Or, the assistance of 2 or more helpers is required for the patient to complete the activity. If activity was not attempted, code reason: 7-Patient Refused. 9-Not Applicable-not attempted and the patient did not perform the activity before the current illness, exacerbation or injury. 10-Not Attempted due to Environmental Limitations-(lack of equipment, weather restraints, etc.). 88-Not Attempted due to Medical Conditions or Safety Concerns. Roll Left to Right (QC): 1 (Max A to roll L, dependent to roll R ) Sit to Lying (QC): 0 Sit to Stand (QC): 1 (Assist of 3 to stand at // bars.) Chair/Hmb-rx-Llaxr Xfer(QC): 1 (karson) Car Transfer (QC): 1 Gait Training Walk 10 feet (QC): 88 Walk 50 ft with 2 Turns(QC): 88 Walk 150 ft (QC): 88 Walking 10ft/uneven surface-QC: 88 Wheelchair Training Does the Pt Use a Wheelchair?: Yes Distance: 150'x2 Wheel 50 ft with 2 turns (QC): 2 (mod assist to guide chair.) Wheel 150 ft (QC): 1 Type of Wheelchair: Manual Stair Training 1 Step (curb) (QC): 88 4 Steps (QC): 88 12 Steps (QC): 88 Balance Picking up an Object (QC): 88 ADL-Treatment Eating (QC): 88 (See DEVELOPMENT REPRESENTATIVE notes) Oral Hygiene (QC): 7 (denies oral sponge at this time) Bathing Location: Chest, Abdomen, Perineal Area Shower/Bathe Self (QC): 1 Upper Body Dressing (QC): 1 (Assist to lean forward and assist to manipulate clothing) Lower Body Dressing (QC): 1 On/Off Footwear (QC): 2 Toileting Hygiene (QC): 1 (incontinent) Toilet Transfer (QC): 88 (Using bedpan) Assessment/Plan Assessment and Plan Assess & Plan/Chief Complaint Assessment: CVA Left sided weakness Left sided neglect PEG tube status Dysphagia Aspiration hx with PNA CAD AF Coumadin treatment GIB 09/14/19 Plan: IRF protocol ST to work on dysphagia TF to be maintained Coumadin treatment Cardiology evaluation 09/13/19: Continue aggressive treatment Barium Swallow Monitor Hemoglobin 09/14/19: Give gentle IV fluids Increase INR with Coumadin with Lovenox bridge Barium swallow today 09/15/2019: Monitor GI bleed Hold Coumadin and Lovenox and aspirin Hold tube feedings Consult general surgery for endoscopies Maintain n.p.o. status due to aspiration risk (1) CVA (cerebral vascular accident) (2) Atrial fibrillation with normal ventricular rate (3) CAD (coronary artery disease) (4) Stented coronary artery (5) Dysphagia (6) Left-sided weakness (7) At risk for aspiration (8) PEG (percutaneous endoscopic gastrostomy) status (9) On warfarin therapy (10) Left-sided neglect (11) Facial droop KENZIE MORENO DO Sep 15, 2019 07:27
[2019-09-15] MEDS: AA 4.25% W/LYTES IN D5W IV SOL 1,000 ML IV SCH ×2 (07:29→15:50)
[2019-09-15] MEDS: NYSTATIN ORAL SUSP 5 ML UDC PO SCH ×3 (08:23→21:44)
[2019-09-15] MEDS: meTOprolol TARTRATE 25 MG (LOPRESSOR) TABLET PO SCH ×2 (08:23→18:04)
[2019-09-15] MEDS: ASPIRIN 81 MG CHEW (CHILDREN'S ASA) PO SCH (08:23)
[2019-09-15] MEDS: LACTOBACILLUS ACIDOPHILUS (PROBIOTIC) CAPSULE PEG SCH ×2 (08:23→21:45)
[2019-09-15] MEDS: polyethylene glycoL POWDER 17 GM (MIRALAX) PACK PO SCH ×2 (08:24→21:45)
[2019-09-15] MEDS: DOCUSATE SODIUM 100 MG (COLACE) CAP PO SCH ×2 (08:24→21:45)
[2019-09-15] MEDS: SENNA W/DOCUSATE (SENOKOT S) TABLET PO SCH ×2 (08:25→21:45)
[2019-09-15] MEDS: PANTOPRAZOLE 2 MG/ML LIQUID 200 ML (PROTONIX) PEG SCH ×6 (08:28→21:45)
[2019-09-15] MEDS: ENOXAPARIN 40 MG/0.4 ML (LOVENOX) SYR SQ SCH (08:28)
[2019-09-15 08:31] VITALS: BP 127/78
[2019-09-15] MEDS: SCOPOLAMINE 1.5 MG (TRANSDERM-SCOP) PATCH TD SCH (09:17)
[2019-09-15] MEDS: SCOPOLAMINE PATCH REMOVAL TP SCH (09:18)
--- NOTE | 2019-09-15 09:18 | NUR ---
NO SCOPOLAMINE PATCH ON. NEW ONE APPLIED PER ORDERS.
--- NOTE | 2019-09-15 09:47 | Physical Therapy Daily Note ---
PT Daily Note-Current Subjective Pt has limited verbal responses, but he agreed to therapy. Mental Status Patient Orientation: Person, Place, Situation Attachments: IV Transfers SCALE: Activities may be completed with or without assistive devices. 2-Byhzgiwbdj-eerqjgs completes the activity by him/herself with no assistance from a helper. 5-Set-up or Clean-up Assistance-helper sets up or cleans up; patient completes activity. [place] assists only prior to or following the activity. 4-Supervision or Touching Assistance-helper provides verbal cues and/or touching/steadying and/or contact guard assistance as patient completes activity. Assistance may be provided throughout the activity or intermittently. 3-Partial/Moderate Assistance-helper does LESS THAN HALF the effort. Bat[place] lifts, holds or supports trunk or limbs, but provides less than half the effort. 2-Substantial/Maximal Assistance-helper does MORE THAN HALF the effort. [place] lifts or holds trunk or limbs and provides more than half the effort. 4-Zgxlqcntw-ztjnpf does ALL the effort. Patient does none of the effort to complete the activity. Or, the assistance of 2 or more helpers is required for the patient to complete the activity. If activity was not attempted, code reason: 7-Patient Refused. 9-Not Applicable-not attempted and the patient did not perform the activity before the current illness, exacerbation or injury. 10-Not Attempted due to Environmental Limitations-(lack of equipment, weather restraints, etc.). 88-Not Attempted due to Medical Conditions or Safety Concerns. Roll Left & Right (QC): 1 Sit to Lying (QC): 1 Lying to Sitting/Side of Bed(Q: 1 Gait Training Does the Patient Walk?: No and Walking Goal NOT indicated Exercises Supine Ex: LE Protocol Supine Reps: 15 Performed AAROM/PROM for (L) LE. Pt able to perform (R) LE ex (I). Treatments Sat edge of bed to work on postural training and core support. He is able to sit upright and maintain upright position without assistance, but begins to lean forward and tries to lead with elbows on knees. He requires assistance to return to upright. Assessment Current Status: Fair Progress Pt positioned in supine rolled to the (R) 45 degrees. He indicated that he was comfortable and had his call light in the (R) hand. All rails up and alarm on. PT Short Term Goals Short Term Goals Time Frame: Sep 19, 2019 Roll Left & Right: 2 Sit to lyin Lying to sitting on side of be: 2 Sit to stand: 2 Chair/hrr-ed-dcftm transfer: 2 Wheel 50ft w/2 turns: 2 Wheel 150 feet: 2 PT Lung Splitter Goals Long-Term Goals PT Lung Splitter Goals Time Frame: Oct 03, 2019 Roll Left & Right (QC): 3 Sit to Lying (QC): 3 Lying-Sitting on Side/Bed(QC): 3 Sit to Stand (QC): 3 Chair/Huf-xr-Diwib Xfer(QC): 3 Toilet Transfer (QC): 3 Car Transfer (QC): 3 Does the Patient Walk: No and Walking Goal NOT indicated Walk 10 feet (QC): 88 Walk 50ft with 2 Turns (QC): 88 Walk 150 ft (QC): 88 Walking 10ft on Uneven Surface: 88 1 Step (curb) (QC): 88 4 Steps (QC): 88 12 Steps (QC): 88 Picking up an Object (QC): 88 Wheel 50 feet with 2 turns (QC: 3 Wheel 150 feet: 3 PT Plan Treatment/Plan Treatment Plan: Continue Plan of Care Treatment Plan: Bed Mobility, Education, Functional Activity Aliyah, Functional Strength, Group Therapy, Gait, Safety, Therapeutic Exercise, Transfers Treatment Duration: Oct 03, 2019 Frequency: At least 5 of 7 days/Wk (IRF) Estimated Hrs Per Day: 1.5 hours per day Patient and/or Family Agrees t: Yes Time/GCodes Time In: 919 Time Out: 934 Total Billed Treatment Time: 15 Total Billed Treatment 1, ex 15 EVA SAMUEL PT Sep 15, 2019 09:47
--- NOTE | 2019-09-15 13:55 | NUR ---
IV SALINE LOCKED.
[2019-09-15] MEDS: ONDANSETRON 4 MG (ZOFRAN) ORAL DISSOLVE TAB PO PRN (14:02)
--- NOTE | 2019-09-15 14:07 | NUR ---
DR. SUÁREZ HERE WITH ORDERS TO GIVE 7.5 MG OF COUMADIN AGAIN TONIGHT. RESUME 5 MG TOMORROW.
--- NOTE | 2019-09-15 15:02 | Progress Note - Cardiology ---
Cardiology SOAP Progress Note Subjective: Intermittent nausea No cp or palp or syncope Gen weakness Chronic L-sided weakness Objective: I&O/Vital Signs 09/15/19 09/15/19 09/15/19 05:04 08:31 09:45 Temp 36.8 Pulse 91 99 Resp 18 B/P (MAP) 131/73 (92) 127/78 (94) Pulse Ox 97 O2 Delivery Room Air Room Air 09/15/19 00:00 Intake Total 1300 ml Balance 1300 ml Constitutional: well-developed, well-nourished, other (Drowsy, awakens easily, oriented to self only) Respiratory: No accessory muscle use, No respiratory distress; chest expansion is symmetric, chest is bilaterally symmetric, lungs clear to auscultation Cardiovascular: regular rate-rhythm (EKG shows SR with PVC's); No JVD; S1 and S2, systolic murmur Gastrointestional: soft, audible bowel sounds, other (PEG tube in place) Extremities: no lower extremity edema bilateral Neurologic/Psychiatric: other (moves right extremities; does not move left upper or lower extremity) Skin: No rash on exposed areas, No ulcerations on exposed areas Results/Procedures: Labs Laboratory Tests 09/15/19 04:35: Prothrombin Time 19.4H, INR Comment 1.6H Laboratory Tests 09/14/19 08:19 A/P: Assessment: 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 Dias at [facility] Records from [facility] report h/o CVA x 3 (2008, 2013 x2) H/O PE in 2017 tx at [facility] Dysphagia - PEG tube in place HTN CAD - CABG x 4 vessel in February 2016 at [facility] by Dr. Regan - quadruple bypass with VILLATORO to LAD, saphenous vein graft to OM 1, saphenous vein T graft to D1, saphenous vein graft to LPDA. 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 CCDS Sep 15, 2019 15:02
[2019-09-15] MEDS: warFARin 5 MG (COUMADIN) TAB PO SCH (15:29)
--- NOTE | 2019-09-15 15:34 | NUR ---
IN ROOM TO TURN PATIENT. INCONTINENT OF BM. MODERATE AMOUNT OF DARK RED BLOOD NOTED IN STOOL WITH [address] MORENO NOTIFIED. ORDERS TO HOLD COUMADIN, LOVENOX, AND ASA (UPDATE DR. SUÁREZ), H&H, AND CONSULT GENERAL SURGERY. DR. SUÁREZ NOTIFIED. DR. BARKLEY NOTIFIED OF CONSULT. ORDERS TO HOLD TUBE FEEDINGS AND RESTART CLINIMIX. WILL CALL DR. BARKLEY WITH H&H RESULTS.
[2019-09-15 15:47] LABS: HEMOGLOBIN 9.5 G/DL (13.3-17.7)
--- NOTE | 2019-09-15 16:58 | NUR ---
DR. BARKLEY INFORMED OF H&H RESULTS. ORDERS TO CHECK CBC IN THE AM. IF KEEPS HAVING LOTS OF BLOODY BM REPEAT IT THEN.
[2019-09-15 18:00] VITALS: BP 143/61
[2019-09-15] MEDS ORDERED: warFARin 7.5 MG (COUMADIN) TAB PO ONE (18:00)
[2019-09-15] MEDS ORDERED: SCOPOLAMINE PATCH REMOVAL TP SCH (18:59)
[2019-09-16] MEDS: SUCRALFATE 1 GM (CARAFATE) TAB PO SCH ×4 (00:17→17:08)
[2019-09-16] MEDS: AA 4.25% W/LYTES IN D5W IV SOL 1,000 ML IV SCH ×2 (01:56→11:31)
[2019-09-16 05:07] VITALS: BP 123/68
[2019-09-16 05:09] LABS: HEMOGLOBIN 10.3 G/DL (13.3-17.7); MEAN PLATELET VOLUME 10.5 FL (7.4-10.4); RED CELL DISTRIBUTION WIDTH 16.5 % (10.0-14.5); WHITE BLOOD COUNT 7.3 10^3/uL (4.3-11.0)
[2019-09-16 05:21] LABS: INR 1.6 (0.8-1.4); PROTHROMBIN TIME PATIENT 19.6 SEC (12.2-14.7)
[2019-09-16] MEDS: LEVOTHYROXINE 75 MCG (LEVOTHROID) TABLET PO SCH (06:01)
[2019-09-16 08:51] VITALS: BP 154/74
[2019-09-16] MEDS: meTOprolol TARTRATE 25 MG (LOPRESSOR) TABLET PO SCH ×2 (08:52→17:08)
[2019-09-16] MEDS: SENNA W/DOCUSATE (SENOKOT S) TABLET PO SCH ×2 (08:52→21:23)
[2019-09-16] MEDS: LACTOBACILLUS ACIDOPHILUS (PROBIOTIC) CAPSULE PEG SCH ×2 (08:52→21:22)
[2019-09-16] MEDS: polyethylene glycoL POWDER 17 GM (MIRALAX) PACK PO SCH ×2 (08:53→21:23)
[2019-09-16] MEDS: DOCUSATE SODIUM 100 MG (COLACE) CAP PO SCH ×2 (08:53→21:23)
[2019-09-16] MEDS: NYSTATIN ORAL SUSP 5 ML UDC PO SCH ×3 (08:53→21:22)
[2019-09-16] MEDS: PANTOPRAZOLE 2 MG/ML LIQUID 200 ML (PROTONIX) PEG SCH ×6 (08:58→21:23)
--- NOTE | 2019-09-16 09:04 | Consultation - Surgery ---
STEVENYUE MED STUDENT 09/16/19 0904: History of Present Illness History of Present Illness Patient Consulted On(dougie/time) 09/16/19 08:59 Date Seen by Provider: Sep 16, 2019 Time Seen by Provider: 08:30 History of Present Illness Pt reports epigastric pain with tenderness to palpation and black tarry stools. Pt had a recent stroke and following treatment developed black stools. Pt states he hasn't had any stools since the episode, but is still having epigastric pain. No N/V/fever noted, but patient appeared weak and had signs of pallor. Allergies and Home Medications Allergies Coded Allergies: No Known Drug Allergies (Unverified , 09/12/19) Home Medications Acetaminophen 325 Mg Capsule, 650 MG PO Q6H PRN for PAIN-MILD (1-4) OR TEMPATURE, (Reported) Aspirin 81 Mg Tablet.dr, 81 MG PO DAILY, (Reported) Atorvastatin Calcium 80 Mg Tablet, 80 MG PO HS, (Reported) LAST FILLED 07-05-2019 #30 Levothyroxine Sodium 75 Mcg Tablet, 150 MCG PO DAILY, (Reported) TAKE 1 HOUR BEFORE MEAL Levothyroxine Sodium 150 Mcg Tablet, 150 MG PO DAILY, (Reported) LAST FILLED 04-24-2019 #90 Metoprolol Tartrate 25 Mg Tablet, 25 MG PO DAILY, (Reported) Multivitamin 1 Each Tablet, 1 EACH PO DAILY, (Reported) Warfarin Sodium 4 Mg Tablet, 4 MG PO HS, (Reported) Past Reawuch-Zhvcfx-Fvyyfm Hx Patient Social History Alcohol Use: Denies Use Recreational Drug Use: No Smoking Status: Never a Smoker Recent Foreign Travel: No Contact w/Someone Who Travel: No Recent Infectious Disease Expo: No Recent Hopitalizations: No Physical Abuse Screen: No Sexual Abuse: No Immunizations Up To Date PED Vaccines UTD: Yes Date of Pneumonia Vaccine: Dec 12, 2018 Seasonal Allergies Seasonal Allergies: No Surgeries History of Surgeries: Yes Surgeries: Gallbladder (07/31/19) Respiratory History of Respiratory Disorde: No Cardiovascular History of Cardiac Disorders: Yes (CAROTID STENOSIS) Cardiac Disorders: Atrial Fibrillation, Coronary Artery Disease, High Cholesterol, Hypertension, Peripheral Vascular Neurological History of Neurological Disord: No Neurological Disorders: Stroke (08/02/19) Genitourinary History of Genitourinary Disor: Yes (JOSE ALFREDO) Genitourinary Disorders: Kidney Infection Gastrointestinal History of Gastrointestinal Di: No Musculoskeletal History of Musculoskeletal Dis: No Musculoskeletal Disorders: Arthritis Endocrine History of Endocrine Disorders: Yes HEENT History of HEENT Disorders: No Cancer History of Cancer: No Psychosocial History of Psychiatric Problem: No Integumentary History of Skin or Integumenta: No Blood Transfusions History of Blood Disorders: No Review of Systems-General Constitutional: no symptoms reported EENTM: no symptoms reported Respiratory: no symptoms reported Cardiovascular: no symptoms reported Gastrointestinal: abdominal pain (epigastric), melena Genitourinary: no symptoms reported Musculoskeletal: no symptoms reported Skin: no symptoms reported Psychiatric/Neurological: No Symptoms Reported All Other Systems Reviewed Negative Unless Noted: Yes Physical Exam-General Problems Physical Exam Vital Signs Vital Signs - First Documented 09/12/19 09/12/19 09/12/19 11:52 11:56 18:00 Temp 36.8 Pulse 93 Resp 18 B/P (MAP) 118/71 Pulse Ox 95 O2 Delivery Room Air Capillary Refill : Less Than 3 Seconds General Appearance: WD/WN, no apparent distress Eyes: Bilateral Eye Normal Inspection HEENT: PERRL/EOMI, normal ENT inspection Neck: supple, normal inspection Respiratory: chest non-tender, no respiratory distress, no accessory muscle use Cardiovascular: normal peripheral pulses, regular rate, rhythm, no JVD Gastrointestinal: soft, tenderness Back: normal inspection Extremities: non-tender Neurologic/Psychiatric: normal mood/affect Skin: normal color, warm/dry Lymphatic: no adenopathy Data Review Labs Laboratory Tests 09/15/19 15:41: Hemoglobin 9.5L, Hematocrit 31L 09/16/19 04:33: Hemoglobin 10.3L, Hematocrit 33L, White Blood Count 7.3, Red Blood Count 3.78L, Mean Corpuscular Volume 88, Mean Corpuscular Hemoglobin 27, Mean Corpuscular Hemoglobin Concent 31L, Red Cell Distribution Width 16.5H, Platelet Count 288, Mean Platelet Volume 10.5H, Prothrombin Time 19.6H, INR Comment 1.6H Assessment/Plan Assessment/Plan Assessment/Plan Gastric bleed secondary to anticoagulation Monitor stools and Hgb levels for blood loss Possible EGD/Colonoscopy if Sx continue Clinical Quality Measures DVT/VTE Risk/Contraindication: Risk Factor Score Per Nursin RFS Level Per Nursing on Admit: 4+=Very High MATEUS FLORES DO 09/16/19 1237: History of Present Illness History of Present Illness History of Present Illness Consult requested by Dr. Simon for blood in stool. Patient is a 79 year old male that had recent CVA. Patient with gastrostomy tube for feeds and in rehab. Patient was on anticoagulation which is currently on hold. He began having some nausea and vomiting with tube feeds, which are on hold currently. Patient with melanotic stools. Hgb today has improved. No more melanotic stools today. Has not had any nausea or vomiting. Has some slight epigastric abdominal pain. Denies fever sweats chills shortness of breath or chest pain at this time. Allergies and Home Medications Allergies Coded Allergies: No Known Drug Allergies (Unverified , 09/12/19) Home Medications Acetaminophen 325 Mg Capsule, 650 MG PO Q6H PRN for PAIN-MILD (1-4) OR TEMPATUR E, (Reported) Aspirin 81 Mg Tablet.dr, 81 MG PO DAILY, (Reported) Atorvastatin Calcium 80 Mg Tablet, 80 MG PO HS, (Reported) LAST FILLED 07-05-2019 #30 Levothyroxine Sodium 75 Mcg Tablet, 150 MCG PO DAILY, (Reported) TAKE 1 HOUR BEFORE MEAL Levothyroxine Sodium 150 Mcg Tablet, 150 MG PO DAILY, (Reported) LAST FILLED 04-24-2019 #90 Metoprolol Tartrate 25 Mg Tablet, 25 MG PO DAILY, (Reported) Multivitamin 1 Each Tablet, 1 EACH PO DAILY, (Reported) Warfarin Sodium 4 Mg Tablet, 4 MG PO HS, (Reported) Patient Home Medication List Home Medication List Reviewed: Yes Past Uvqeark-Zzaukw-Nsylgm Hx Reviewed Nursing Assessment Reviewed/Agree w Nursing PMH: Yes Family Medical History Significant Family History: No Pertinent Family Hx Review of Systems-General Constitutional: No chills, No diaphoresis EENTM: No hearing loss, No blurred vision Respiratory: No cough, No short of breath Gastrointestinal: abdominal pain (epigastric), melena Genitourinary: No decreased output, No dysuria Musculoskeletal: No back pain; muscle weakness (left side) Skin: No change in color, No change in hair/nails Psychiatric/Neurological: Denies Anxiety, Denies Depressed All Other Systems Reviewed Negative Unless Noted: Yes (Negative excepted noted.) Physical Exam-General Problems Physical Exam General Appearance: WD/WN, no apparent distress HEENT: PERRL/EOMI, normal ENT inspection Neck: supple, normal inspection Respiratory: chest non-tender, no respiratory distress, no accessory muscle use Cardiovascular: normal peripheral pulses, regular rate, rhythm Gastrointestinal: soft, tenderness (minimal around gastrostomy tube in epigastric area) Rectal: deferred (at this time) Back: normal inspection Extremities: non-tender, other (left sided weakness) Neurologic/Psychiatric: alert, normal mood/affect Skin: normal color, warm/dry Lymphatic: no adenopathy Assessment/Plan Assessment/Plan Assessment/Plan anemia secondary to blood loss anticoagulation Melena Epigastric abdominal pain likely related to gastrostomy tube placement recent CVA hgb stable will restart tube feeds PPI Carafate follow hgb may need upper/lower endoscopy if bleeding continues Supervisory-Addendum Brief Verification & Attestation Participated in pt care: history, MDM, physical Personally performed: exam, history, MDM, supervision of care Care discussed with: Medical Student Procedures: n/a Results interpretation: Verified all documentation Verification and Attestation of Medical Student E/M Service A medical student performed and documented this service in my presence. I reviewed and verified all information documented by the medical student and made modifications to such information, when appropriate. I personally performed the physical exam and medical decision making. Mateus Flores, Sep 16, 2019,12:41 YUE HARRIS MED STUDENT Sep 16, 2019 09:04 MATEUS FLORES DO Sep 16, 2019 12:37
--- NOTE | 2019-09-16 09:49 | PM&R Progress Note ---
Subjective HPI/CC On Admission Date Seen by Provider: Sep 16, 2019 Time Seen by Provider: 12:30 Subjective/Events-last exam 09/16/19: No bloody stools today Hgb stable 10.3 Is not strong enough to undergo C-scope prep Dr Flores saw him this morning Holding ASA Lovenox Coumadin Had GI at [place] also Decreased cognition 09/15/19: Patient had been doing pretty well when I rounded No more nausea and vomiting like yesterday Tube feeding was restarted slowly I stopped the Clinimix since tube feedings were started N.p.o. remains due to barium swallow oral intake is not an option due to aspiration risk Carotid ultrasound shows 100% occlusion on the right side After rounds he was noted to have black tarry stools and a great deal of it he remained stable so I stop the Coumadin and Lovenox and aspirin updated ca rdiology regarding this INR 1.[address] Flores general surgery was consulted and checked hemoglobin and hematocrit. 09/14/19: Had nausea and vomiting all last night Needs IV fluids gently so we'll start that today Urinary incontinence noted No fecal incontinence Holding tube feedings for right now Barium swallow today at 11:30 INR 1.4 will increase dose and provide Lovenox 09/13/19: Patient doing pretty well today Sleeping currently Therapy worked with him today Modified Barium Swallow scheduled Hemoglobin 9.6 Disoriented at times Bowels moved yesterday Conferred with RN Reviewed Therapy notes Checked Meds and Labs Review of Systems General: Fatigue, Malaise Neurological: Weakness Objective Exam Vital Signs Vital Signs Date Time Temp Pulse Resp B/P (MAP) Pulse Ox O2 Delivery O2 Flow Rate FiO2 09/16/19 20:10 Room Air 09/16/19 18:00 36.0 75 12 102/57 (72) 97 Capillary Refill : Less Than 3 Seconds General Appearance: No Apparent Distress, WD/WN, Chronically ill HEENT: PERRL/EOMI, Normal ENT Inspection, Pharynx Normal Neck: Full Range of Motion, Normal Inspection, Non Tender, Supple, Carotid Bruit Respiratory: Chest Non Tender, Lungs Clear, Normal Breath Sounds, No Accessory Muscle Use, No Respiratory Distress Cardiovascular: No Edema, No Gallop, No JVD, No Murmur, Normal Peripheral Pulses, Irregularly Irregular Gastrointestinal: Normal Bowel Sounds, No Organomegaly, No Pulsatile Mass, Non Tender, Soft Back: Normal Inspection, No CVA Tenderness, No Vertebral Tenderness Extremity: Normal Capillary Refill, Normal Inspection, Normal Range of Motion, Non Tender, No Calf Tenderness, Pedal Edema Neurologic/Psychiatric: Alert, Oriented x3, Normal Mood/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 FIM Transfers Therapy Code Descriptions/Definitions Functional [place] Measure: 0=Not Assessed/NA 4=Minimal Assistance 1=Total Assistance 5=Supervision or Setup 2=Maximal Assistance 6=Modified [place] 3=Moderate Assistance 7=Complete IndependenceSCALE: Activities may be completed with or without assistive devices. 7-Crnftsmkka-wysddnb completes the activity by him/herself with no assistance from a helper. 5-Set-up or Clean-up Assistance-helper sets up or cleans up; patient completes activity. [place] assists only prior to or following the activity. 4-Supervision or Touching Assistance-helper provides verbal cues and/or touching/steadying and/or contact guard assistance as patient completes activity. Assistance may be provided throughout the activity or intermittently. 3-Partial/Moderate Assistance-helper does LESS THAN HALF the effort. [place] lifts, holds or supports trunk or limbs, but provides less than half the effort. 2-Substantial/Maximal Assistance-helper does MORE THAN HALF the effort. [place] lifts or holds trunk or limbs and provides more than half the effort. 5-Nanyniwiu-oqeimp does ALL the effort. Patient does none of the effort to complete the activity. Or, the assistance of 2 or more helpers is required for the patient to complete the activity. If activity was not attempted, code reason: 7-Patient Refused. 9-Not Applicable-not attempted and the patient did not perform the activity before the current illness, exacerbation or injury. 10-Not Attempted due to Environmental Limitations-(lack of equipment, weather restraints, etc.). 88-Not Attempted due to Medical Conditions or Safety Concerns. Roll Left to Right (QC): 1 Sit to Lying (QC): 1 Sit to Stand (QC): 1 (Assist of 3 to stand at // bars.) Chair/Qab-er-Clpzo Xfer(QC): 1 (karson) Car Transfer (QC): 1 Gait Training Does the Patient Walk?: No and Walking Goal NOT indicated Walk 10 feet (QC): 88 Walk 50 ft with 2 Turns(QC): 88 Walk 150 ft (QC): 88 Walking 10ft/uneven surface-QC: 88 Wheelchair Training Does the Pt Use a Wheelchair?: Yes Distance: 150'x2 Wheel 50 ft with 2 turns (QC): 2 (mod assist to guide chair.) Wheel 150 ft (QC): 1 Type of Wheelchair: Manual Stair Training 1 Step (curb) (QC): 88 4 Steps (QC): 88 12 Steps (QC): 88 Balance Picking up an Object (QC): 88 ADL-Treatment Eating (QC): 88 (See MANAGER HYDRAULIC notes) Oral Hygiene (QC): 7 (denies oral sponge at this time) Bathing Location: Chest, Abdomen, Perineal Area Shower/Bathe Self (QC): 1 Upper Body Dressing (QC): 1 (Assist to lean forward and assist to manipulate clothing) Lower Body Dressing (QC): 1 On/Off Footwear (QC): 2 Toileting Hygiene (QC): 1 (incontinent) Toilet Transfer (QC): 88 (Using bedpan) Assessment/Plan Assessment and Plan Assess & Plan/Chief Complaint Assessment: CVA Left sided weakness Left sided neglect PEG tube status Dysphagia Aspiration hx with PNA CAD AF Coumadin treatment GIB 09/14/19 Plan: IRF protocol ST to work on dysphagia TF to be maintained Coumadin treatment Cardiology evaluation 09/13/19: Continue aggressive treatment Barium Swallow Monitor Hemoglobin 09/14/19: Give gentle IV fluids Increase INR with Coumadin with Lovenox bridge Barium swallow today 09/15/2019: Monitor GI bleed Hold Coumadin and Lovenox and aspirin Hold tube feedings Consult general surgery for endoscopies Maintain n.p.o. status due to aspiration risk 09/16/19: Monitor Hgb NPO Aspiration risk TF gently (1) CVA (cerebral vascular accident) (2) Atrial fibrillation with normal ventricular rate (3) CAD (coronary artery disease) (4) Stented coronary artery (5) Dysphagia (6) Left-sided weakness (7) At risk for aspiration (8) PEG (percutaneous endoscopic gastrostomy) status (9) On warfarin therapy (10) Left-sided neglect (11) Facial droop MORENO,KENZIE DO Sep 16, 2019 09:48
--- NOTE | 2019-09-16 10:17 | NUR ---
DR. BARKLEY HERE. ORDERS TO CONTINUE TO HOLD ASA, COUMADIN, AND LOVENOX. RE-START TUBE FEEDINGS- 1 CAN AT 0600,1200,1800, AND 2100. WILL WORK UP GRADUALLY FROM THERE.
--- NOTE | 2019-09-16 13:15 | NUR ---
PATIENT GETTING PROTONIX THROUGH HIS PEG TUBE BID. DR. BARKLEY INFORMED AND ORDERS TO DC IV PROTONIX THAT HE JUST ORDERED... STICK WITH PREVIOUS ORDER.
--- NOTE | 2019-09-16 15:52 | Progress Note - Cardiology ---
Cardiology SOAP Progress Note Subjective: No cp or palp or syncope or shortness of breath at rest Focal weakness as before Gen weakness Has had nausea intermittently Objective: I&O/Vital Signs 09/16/19 09/16/19 09/16/19 09/16/19 05:07 08:19 08:51 09:59 Temp 36.3 Pulse 81 84 Resp 18 B/P (MAP) 123/68 (86) 154/74 (100) Pulse Ox 96 93 O2 Delivery Room Air Room Air Room Air 09/16/19 00:00 Intake Total 874 ml Balance 874 ml Constitutional: well-developed, well-nourished, other (Drowsy, awakens easily, oriented to self only) Respiratory: No accessory muscle use, No respiratory distress; chest expansion is symmetric, chest is bilaterally symmetric, lungs clear to auscultation Cardiovascular: regular rate-rhythm (EKG shows SR with PVC's); No JVD; S1 and S2, systolic murmur Gastrointestional: soft, audible bowel sounds, other (PEG tube in place) Extremities: no lower extremity edema bilateral Neurologic/Psychiatric: other (moves right extremities; does not move left upper or lower extremity) Skin: No rash on exposed areas, No ulcerations on exposed areas Results/Procedures: Labs Laboratory Tests 09/16/19 04:33: White Blood Count 7.3, Red Blood Count 3.78L, Hemoglobin 10.3L, Hematocrit 33L, Mean Corpuscular Volume 88, Mean Corpuscular Hemoglobin 27, Mean Corpuscular Hemoglobin Concent 31L, Red Cell Distribution Width 16.5H, Platelet Count 288, Mean Platelet Volume 10.5H, Prothrombin Time 19.6H, INR Comment 1.6H A/P: Assessment: Hematochezia on 09/15/19 (warfarin and ASA held) being managed by Dr Simon and Dr Flores 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 by Dr. Dias at [facility] Records from [facility] report h/o CVA x 3 (2008, 2013 x2) H/O PE in 2017 tx at [facility] Dysphagia - PEG tube in place HTN CAD - CABG x 4 vessel in February 2016 at [facility] by Dr. Regan - quadruple bypass with VILLATORO to LAD, saphenous vein graft to OM 1, saphenous vein T graft to D1, saphenous vein graft to LPDA. 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. Has been on warfarin H/O hematology w/u at [facility] which did not show hypercoagulable state H/O acute gangrenous cholecystitis for which he underwent cholecystectomy in July 2019 at [place], [place] Documented h/o prostate cancer Plan: Treat GI bleed so that anticoag/antiplatelet therapy can be resumed Monitor labs KENNEDI SUÁREZ MD FACP FAC CCDS Sep 16, 2019 15:52
--- NOTE | 2019-09-16 17:59 | NUR ---
PATIENT REPORTS PAIN IN RIGHT ARM AT IV SITE. ARM IS MILDLY RED AND WARM. CLINIMIX STOPPED IMMEDIATELY AND IV REMOVED. ARM WRAPPED WITH WARM BLANKET AND ELEVATED ON PILLOW. PATIENT REQUESTING TO LEAVE IV OUT. HAS TOLERATED TUBE FEEDINGS SO FAR. DR. MORENO INFORMED OF ABOVE. ORDERS TO DC CLINIMIX. MAY LEAVE IV OUT.
[2019-09-16 18:00] VITALS: BP 102/57
[2019-09-17] MEDS: SUCRALFATE 1 GM (CARAFATE) TAB PO SCH ×4 (00:41→17:09)
[2019-09-17 05:25] LABS: BASOPHILS % (AUTO) 1 % (0-10); EOSINOPHILS # (AUTO) 0.2 10^3/uL (0.0-0.3); EOSINOPHILS % (AUTO) 3 % (0-10); HEMATOCRIT 32 % (40-54); LYMPHOCYTES # (AUTO) 1.4 X 10^3 (1.0-4.0); LYMPHOCYTES % (AUTO) 18 % (12-44); MEAN CORPUSCULAR HEMOGLOBIN 27 PG (25-34); MEAN CORPUSCULAR HGB CONC 31 G/DL (32-36); MEAN CORPUSCULAR VOLUME 87 FL (80-99); MEAN PLATELET VOLUME 10.4 FL (7.4-10.4); MONOCYTES # (AUTO) 0.9 X 10^3 (0.0-1.0); MONOCYTES % (AUTO) 12 % (0-12); NEUTROPHILS # (AUTO) 5.2 X 10^3 (1.8-7.8); NEUTROPHILS % (AUTO) 67 % (42-75); PLATELET COUNT 296 10^3/uL (130-400); WHITE BLOOD COUNT 7.8 10^3/uL (4.3-11.0)
[2019-09-17 05:35] LABS: INR 1.4 (0.8-1.4); PROTHROMBIN TIME PATIENT 17.4 SEC (12.2-14.7)
[2019-09-17 05:37] LABS: ALBUMIN 3.4 GM/DL (3.2-4.5); CHLORIDE 102 MMOL/L (98-107); POTASSIUM 4.2 MMOL/L (3.6-5.0); SODIUM 135 MMOL/L (135-145)
[2019-09-17 05:38] LABS: CALCIUM 8.6 MG/DL (8.5-10.1)
[2019-09-17 05:39] LABS: GLUCOSE 92 MG/DL (70-105); TOTAL PROTEIN 6.2 GM/DL (6.4-8.2)
[2019-09-17 05:40] LABS: CARBON DIOXIDE 25 MMOL/L (21-32)
[2019-09-17 05:41] LABS: BILIRUBIN,TOTAL 0.5 MG/DL (0.1-1.0)
[2019-09-17 05:43] VITALS: BP 137/61
[2019-09-17 05:43] LABS: ALKALINE PHOSPHATASE 73 U/L (40-136); CREATININE SERUM 0.93 MG/DL (0.60-1.30); GFR ESTIMATED > 60
[2019-09-17 05:44] LABS: BUN/CREATININE RATIO 30
[2019-09-17 05:46] LABS: ALANINE AMINOTRANSFERASE 27 U/L (0-55)
[2019-09-17] MEDS: LEVOTHYROXINE 75 MCG (LEVOTHROID) TABLET PO SCH (06:02)
--- NOTE | 2019-09-17 06:28 | PM&R Progress Note ---
Subjective HPI/CC On Admission Date Seen by Provider: Sep 17, 2019 Time Seen by Provider: 09:30 Subjective/Events-last exam 09/17/19: Pt sleeps most of the time No major changes No bloody stools Off of Lovenox, Coumadin and Aspirin Second GI bleed in the last few weeks 09/16/19: No bloody stools today Hgb stable 10.3 Is not strong enough to undergo C-scope prep Dr Flores saw him this morning Holding ASA Lovenox Coumadin Had GI at [place] also Decreased cognition 09/15/19: Patient had been doing pretty well when I rounded No more nausea and vomiting like yesterday Tube feeding was restarted slowly I stopped the Clinimix since tube feedings were started N.p.o. 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 Flores general surgery was consulted and checked hemoglobin and hematocrit. 09/14/19: Had nausea and vomiting all last night Needs IV fluids gently so we'll start that today Urinary incontinence noted No fecal incontinence Holding tube feedings for right now Barium swallow today at 11:30 INR 1.4 will increase dose and provide Lovenox 09/13/19: Patient doing pretty well today Sleeping currently Therapy worked with him today Modified Barium Swallow scheduled Hemoglobin 9.6 Disoriented at times Bowels moved yesterday Conferred with RN Reviewed Therapy notes Checked Meds and Labs Review of Systems General: Fatigue, Malaise Neurological: Weakness Objective Exam Vital Signs Vital Signs Date Time Temp Pulse Resp B/P (MAP) Pulse Ox O2 Delivery O2 Flow Rate FiO2 09/17/19 19:07 94 Room Air 09/17/19 17:37 36.7 85 16 117/55 (75) Capillary Refill : Less Than 3 Seconds General Appearance: No Apparent Distress, WD/WN, Chronically ill HEENT: PERRL/EOMI, Normal ENT Inspection, Pharynx Normal Neck: Full Range of Motion, Normal Inspection, Non Tender, Supple, Carotid Bruit Respiratory: Chest Non Tender, Lungs Clear, Normal Breath Sounds, No Accessory Muscle Use, No Respiratory Distress Cardiovascular: No Edema, No Gallop, No JVD, No Murmur, Normal Peripheral P ulses, Irregularly Irregular Gastrointestinal: Normal Bowel Sounds, No Organomegaly, No Pulsatile Mass, Non Tender, Soft Back: Normal Inspection, No CVA Tenderness, No Vertebral Tenderness Extremity: Normal Capillary Refill, Normal Inspection, Normal Range of Motion, Non Tender, No Calf Tenderness, Pedal Edema Neurologic/Psychiatric: Alert, Oriented x3, Normal Mood/Affect, 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 FIM Transfers Therapy Code Descriptions/Definitions Functional [place] Measure: 0=Not Assessed/NA 4=Minimal Assistance 1=Total Assistance 5=Supervision or Setup 2=Maximal Assistance 6=Modified [place] 3=Moderate Assistance 7=Complete IndependenceSCALE: Activities may be completed with or without assistive devices. 9-Exnpnxgycr-tmfpafa completes the activity by him/herself with no assistance fr om a helper. 5-Set-up or Clean-up Assistance-helper sets up or cleans up; patient completes activity. [place] assists only prior to or following the activity. 4-Supervision or Touching Assistance-helper provides verbal cues and/or touching/steadying and/or contact guard assistance as patient completes activity. Assistance may be provided throughout the activity or intermittently. 3-Partial/Moderate Assistance-helper does LESS THAN HALF the effort. [place] lifts, holds or supports trunk or limbs, but provides less than half the effort. 2-Substantial/Maximal Assistance-helper does MORE THAN HALF the effort. [place] lifts or holds trunk or limbs and provides more than half the effort. 0-Hfrgyfgzf-nveura does ALL the effort. Patient does none of the effort to complete the activity. Or, the assistance of 2 or more helpers is required for the patient to complete the activity. If activity was not attempted, code reason: 7-Patient Refused. 9-Not Applicable-not attempted and the patient did not perform the activity before the current illness, exacerbation or injury. 10-Not Attempted due to Environmental Limitations-(lack of equipment, weather restraints, etc.). 88-Not Attempted due to Medical Conditions or Safety Concerns. Roll Left to Right (QC): 1 Sit to Lying (QC): 1 Sit to Stand (QC): 1 (Assist of 3 to stand at // bars.) Chair/Ikn-hy-Eaowz Xfer(QC): 1 (karson) Car Transfer (QC): 1 Gait Training Does the Patient Walk?: No and Walking Goal NOT indicated Walk 10 feet (QC): 88 Walk 50 ft with 2 Turns(QC): 88 Walk 150 ft (QC): 88 Walking 10ft/uneven surface-QC: 88 Wheelchair Training Does the Pt Use a Wheelchair?: Yes Distance: 150'x2 Wheel 50 ft with 2 turns (QC): 2 (mod assist to guide chair.) Wheel 150 ft (QC): 1 Type of Wheelchair: Manual Stair Training 1 Step (curb) (QC): 88 4 Steps (QC): 88 12 Steps (QC): 88 Balance Picking up an Object (QC): 88 ADL-Treatment Eating (QC): 88 (See AUTOMOBILE SERVICE STATION MECHANIC notes) Oral Hygiene (QC): 7 (denies oral sponge at this time) Bathing Location: Chest, Abdomen, Perineal Area Shower/Bathe Self (QC): 1 Upper Body Dressing (QC): 1 (Assist to lean forward and assist to manipulate clothing) Lower Body Dressing (QC): 1 On/Off Footwear (QC): 2 Toileting Hygiene (QC): 1 (incontinent) Toilet Transfer (QC): 88 (Using bedpan) Assessment/Plan Assessment and Plan Assess & Plan/Chief Complaint Assessment: CVA Left sided weakness Left sided neglect PEG tube status Dysphagia Aspiration hx with PNA CAD AF Coumadin treatment GIB 09/14/19 Plan: IRF protocol ST to work on dysphagia TF to be maintained Coumadin treatment Cardiology evaluation 09/13/19: Continue aggressive treatment Barium Swallow Monitor Hemoglobin 09/14/19: Give gentle IV fluids Increase INR with Coumadin with Lovenox bridge Barium swallow today 09/15/2019: Monitor GI bleed Hold Coumadin and Lovenox and aspirin Hold tube feedings Consult general surgery for endoscopies Maintain n.p.o. status due to aspiration risk 09/16/19: Monitor Hgb NPO Aspiration risk TF gently 09/17/19: No major changes Sleeping most of the time Stay off blood thinners due to second GI bleed (1) CVA (cerebral vascular accident) (2) Atrial fibrillation with normal ventricular rate (3) CAD (coronary artery disease) (4) Stented coronary artery (5) Dysphagia (6) Left-sided weakness (7) At risk for aspiration (8) PEG (percutaneous endoscopic gastrostomy) status (9) On warfarin therapy (10) Left-sided neglect (11) Facial droop KENZIE MORENO DO Sep 17, 2019 06:28
[2019-09-17] MEDS ORDERED: PANTOPRAZOLE 40 MG (PROTONIX) VIAL IV SCH (09:00)
[2019-09-17] MEDS: NYSTATIN ORAL SUSP 5 ML UDC PO SCH ×2 (09:03→12:29)
[2019-09-17] MEDS: polyethylene glycoL POWDER 17 GM (MIRALAX) PACK PO SCH ×2 (09:03→21:00)
[2019-09-17] MEDS: DOCUSATE SODIUM 100 MG (COLACE) CAP PO SCH ×2 (09:03→21:01)
[2019-09-17] MEDS: meTOprolol TARTRATE 25 MG (LOPRESSOR) TABLET PO SCH ×2 (09:03→18:00)
[2019-09-17] MEDS: SENNA W/DOCUSATE (SENOKOT S) TABLET PO SCH ×2 (09:03→21:00)
[2019-09-17] MEDS: LACTOBACILLUS ACIDOPHILUS (PROBIOTIC) CAPSULE PEG SCH ×2 (09:03→21:00)
[2019-09-17] MEDS: PANTOPRAZOLE 2 MG/ML LIQUID 200 ML (PROTONIX) PEG SCH ×6 (09:04→20:59)
--- NOTE | 2019-09-17 09:42 | Progress Note - Cardiology ---
Cardiology SOAP Progress Note Subjective: Drowsy this morning. Awakens easily, but drifts back to sleep. Objective: I&O/Vital Signs 09/18/19 05:36 Temp 36.7 Pulse 84 Resp 20 B/P (MAP) 139/55 (83) Pulse Ox 94 O2 Delivery Room Air 09/18/19 00:00 Intake Total 1820 ml Balance 1820 ml Constitutional: well-developed, well-nourished, other (Drowsy, awakens easily, oriented to self only) Respiratory: No accessory muscle use, No respiratory distress; chest expansion is symmetric, chest is bilaterally symmetric, lungs clear to auscultation Cardiovascular: regular rate-rhythm (EKG shows SR with PVC's); No JVD; S1 and S2, systolic murmur Gastrointestional: soft, audible bowel sounds, other (PEG tube in place) Extremities: no lower extremity edema bilateral Neurologic/Psychiatric: other (moves right extremities; does not move left upper or lower extremity) Skin: No rash on exposed areas, No ulcerations on exposed areas Results/Procedures: Labs A/P: Assessment: Hematochezia on 09/15/19 (warfarin and ASA held) being managed by Dr Simon and Dr Flores 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 Dias at [facility] Records from [facility] report h/o CVA x 3 (2008, 2013 x2) H/O PE in 2017 tx at [facility] Dysphagia - PEG tube in place HTN CAD - CABG x 4 vessel in February 2016 at [facility] by Dr. Regan - quadruple bypass with VILLATORO to LAD, saphenous vein graft to OM 1, saphenous vein T graft to D1, saphenous vein graft to LPDA. 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 Has been on warfarin H/O hematology w/u at [facility] which did not show hypercoagulable state H/O acute gangrenous cholecystitis for which he underwent cholecystectomy in July 2019 at [place], [place] Documented h/o prostate cancer Plan: Treat GI bleed so that anticoag/antiplatelet therapy can be resumed Monitor labs SAMANTHA GENAO Sep 17, 2019 09:42
--- NOTE | 2019-09-17 09:55 | Progress Note - Surgery ---
STEVENYUE MED STUDENT 09/17/19 0954: Subjective Time Seen by a Provider: 08:50 Subjective/Events-last exam Pt appeared comfortable and in no acute distress. No tenderness to palpation of the abdomen noted and no erythema or edema noted at gastrostomy tube site. Hgb has stabilized and will continue monitoring progression. Denies nausea, vomiting, fever, chills. Objective Exam Vital Signs Date Time Temp Pulse Resp B/P (MAP) Pulse Ox O2 Delivery O2 Flow Rate FiO2 09/17/19 07:09 Room Air 09/17/19 05:43 36.5 76 18 137/61 (86) 95 Room Air 09/16/19 20:10 Room Air 09/16/19 18:00 36.0 75 12 102/57 (72) 97 Room Air 09/16/19 09:59 Room Air I & O 09/17/19 07:00 Intake Total 1448 ml Balance 1448 ml Capillary Refill : Less Than 3 Seconds General Appearance: No Apparent Distress, WD/WN, Chronically ill HEENT: PERRL/EOMI, Normal ENT Inspection, Pharynx Normal Neck: Full Range of Motion, Normal Inspection, Non Tender, Supple, Carotid Bruit Respiratory: Chest Non Tender, Lungs Clear, Normal Breath Sounds, No Accessory Muscle Use, No Respiratory Distress Cardiovascular: No Edema, No Gallop, No JVD, No Murmur, Normal Peripheral Pulses, Irregularly Irregular Gastrointestinal: soft, tenderness (minimal around gastrostomy tube in epigastric area) Extremity: Normal Capillary Refill, Normal Inspection, Normal Range of Motion, Non Tender, No Calf Tenderness, Pedal Edema Neurologic/Psychiatric: Alert, Oriented x3, Normal Mood/Affect, 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 specialist II-XII Norm as Tested, Aphasia, Facial Droop (left), Motor Weakness (left sided) Skin: Normal Color, Warm/Dry Lymphatic: No Adenopathy Results Lab Laboratory Tests 09/17/19 04:49: White Blood Count 7.8, Red Blood Count 3.72L, Hemoglobin 10.0L, Hematocrit 32L, Mean Corpuscular Volume 87, Mean Corpuscular Hemoglobin 27, Mean Corpuscular Hemoglobin Concent 31L, Red Cell Distribution Width 16.0H, Platelet Count 296, Mean Platelet Volume 10.4, Neutrophils (%) (Auto) 67, Lymphocytes (%) (Auto) 18, Monocytes (%) (Auto) 12, Eosinophils (%) (Auto) 3, Basophils (%) (Auto) 1, Neutrophils # (Auto) 5.2, Lymphocytes # (Auto) 1.4, Monocytes # (Auto) 0.9, Eosinophils # (Auto) 0.2, Basophils # (Auto) 0.0, Prothrombin Time 17.4H, INR Comment 1.4, Sodium Level 135, Potassium Level 4.2, Chloride Level 102, Carbon Dioxide Level 25, Anion Gap 8, Blood Urea Nitrogen 28H, Creatinine 0.93, Estimat Glomerular Filtration Rate > 60, BUN/Creatinine Ratio 30, Glucose Level 92, Calcium Level 8.6, Corrected Calcium 9.1, Total Bilirubin 0.5, Aspartate Amino Transf (AST/SGOT) 25, Alanine Aminotransferase (ALT/SGPT) 27, Alkaline Phosphatase 73, Total Protein 6.2L, Albumin 3.4 Assessment/Plan Assessment/Plan Assessment/Plan anemia secondary to blood loss anticoagulation Melena Epigastric abdominal pain likely related to gastrostomy tube placement recent CVA hgb stable will restart tube feeds PPI Carafate follow hgb may need upper/lower endoscopy if bleeding continues Clinical Quality Measures DVT/VTE Risk/Contraindication: Risk Factor Score Per Nursin RFS Level Per Nursing on Admit: 4+=Very High CELSO FLORES DO 09/17/191936: Subjective Date Seen by a Provider: Sep 17, 2019 Subjective/Events-last exam Patient resting. Awaken easier. No new complaints. No nausea or emesis. Tolerating tube feeds. No more bloody stools reported by nursing. Hgb stable at 10 Objective Exam General Appearance: No Apparent Distress HEENT: PERRL/EOMI, Pharynx Normal Neck: Non Tender, Supple Respiratory: Chest Non Tender, No Accessory Muscle Use, No Respiratory Distress Cardiovascular: No Edema, Irregularly Irregular Gastrointestinal: soft, tenderness (minimal around gastrostomy tube in epigastric area) Extremity: Non Tender, Other (left sided weakness) Neurologic/Psychiatric: Alert, Facial Droop (left), Motor Weakness (left sided) Skin: Normal Color, Warm/Dry Lymphatic: No Adenopathy Assessment/Plan Assessment/Plan Assessment/Plan anemia secondary to blood loss anticoagulation Melena Epigastric abdominal pain likely related to gastrostomy tube placement recent CVA if remains stable could reintroduce anticoagulation, if bleeds again would do endoscopy don't believe he would tolerate prep for colonoscopy at this time. If has bleeding again or drop would scope. Supervisory-Addendum Brief Verification & Attestation Participated in pt care: history, MDM, physical Personally performed: exam, history, MDM, supervision of care Care discussed with: Medical Student Procedures: n/a Results interpretation: Verified all documentation Verification and Attestation of Medical Student E/M Service A medical student performed and documented this service in my presence. I reviewed and verified all information documented by the medical student and made modifications to such information, when appropriate. I personally performed the physical exam and medical decision making. Celso Flores, Sep 17, 2019,19:37 YUE HARRIS MED STUDENT Sep 17, 2019 09:54 CELSO FLORES DO Sep 17, 2019 19:37
--- NOTE | 2019-09-17 11:08 | Physical Therapy Daily Note ---
PT Daily Note-Current Subjective Pt in bed asleep upon entering. Slowly awakens with verbal and gentle tactile stimuli. Eventually verbal and shakes head yes and no and states yes and no and then states his home town of "[place]". Denies pain when asked several times. Pain Location: No Pain Reported Appearance right side gaze mostly but does look left at command Mental Status Attachments: PEG Tube, Other-See Comments (brie and mask out of room) Transfers SCALE: Activities may be completed with or without assistive devices. 2-Iufpgrgplj-qxmjnik completes the activity by him/herself with no assistance from a helper. 5-Set-up or Clean-up Assistance-helper sets up or cleans up; patient completes activity. [place] assists only prior to or following the activity. 4-Supervision or Touching Assistance-helper provides verbal cues and/or touchi ng/steadying and/or contact guard assistance as patient completes activity. Assistance may be provided throughout the activity or intermittently. 3-Partial/Moderate Assistance-helper does LESS THAN HALF the effort. [place] lifts, holds or supports trunk or limbs, but provides less than half the effort. 2-Substantial/Maximal Assistance-helper does MORE THAN HALF the effort. [place] lifts or holds trunk or limbs and provides more than half the effort. 4-Bgmaptwvd-jxrxiq does ALL the effort. Patient does none of the effort to complete the activity. Or, the assistance of 2 or more helpers is required for the patient to complete the activity. If activity was not attempted, code reason: 7-Patient Refused. 9-Not Applicable-not attempted and the patient did not perform the activity before the current illness, exacerbation or injury. 10-Not Attempted due to Environmental Limitations-(lack of equipment, weather restraints, etc.). 88-Not Attempted due to Medical Conditions or Safety Concerns. Roll Left & Right (QC): 4 (to left) Sit to Lying (QC): 1 Lying to Sitting/Side of Bed(Q: 1 Sit to Stand (QC): 1 Chair/Zop-pc-Rnfhf Xfer(QC): 1 karson for all TRFs Gait Training no gait at this time Exercises Supine Ex: Ankle pumps, Rolling, Heel Slides, Straight leg raise, Hip abd/add Supine Reps: 20 (passisve left with D1 D2 diag patterns) Treatments co Rx for 30 m of 60 m with OT. Rolling for change of brief and cleaning as well as dressing and placement of karson sling. Pt. TRFd to w/c with max assist of 2 needed for positioning and maintenance of position as pts tone is so strong he overcomes positioning. w/c with pt. pushing with right UE to w/c and guidance . At // bars pt. required coordination of 2 skilled therapists as well as clinical support associate for simultaneous positioning of trunk and UEs as well as LEs and trunk for max assist sit to stand at //bars. Mirror feedback was attempted, unsure if pt. used this much. Pt. is very strong ipsilateral pusher and requires many verbal and tactile cues and this is still a very difficult stance task Assessment Current Status: Fair Progress pt. dependent for all mobility, gives good effort, skilled therapist (2) requir ed to manage effective skilled treatment and coordination of U&L extremity and trunk for TRF sit to stand and stance as well as dressing and rolling. Pt. with high tone and "pusher syndrome" PT Short Term Goals Short Term Goals Time Frame: Sep 19, 2019 Roll Left & Right: 2 Sit to lyin Lying to sitting on side of be: 2 Sit to stand: 2 Chair/awh-uu-cnaop transfer: 2 Wheel 50ft w/2 turns: 2 Wheel 150 feet: 2 PT Longterm Goals Longterm Goals PT Longterm Goals Time Frame: Oct 03, 2019 Roll Left & Right (QC): 3 Sit to Lying (QC): 3 Lying-Sitting on Side/Bed(QC): 3 Sit to Stand (QC): 3 Chair/Tvo-dj-Spefe Xfer(QC): 3 Toilet Transfer (QC): 3 Car Transfer (QC): 3 Does the Patient Walk: No and Walking Goal NOT indicated Walk 10 feet (QC): 88 Walk 50ft with 2 Turns (QC): 88 Walk 150 ft (QC): 88 Walking 10ft on Uneven Surface: 88 1 Step (curb) (QC): 88 4 Steps (QC): 88 12 Steps (QC): 88 Picking up an Object (QC): 88 Wheel 50 feet with 2 turns (QC: 3 Wheel 150 feet: 3 PT Plan Treatment/Plan Treatment Plan: Continue Plan of Care Treatment Plan: Bed Mobility, Education, Functional Activity Aliyah, Functional Strength, Group Therapy, Gait, Safety, Therapeutic Exercise, Transfers Treatment Duration: Oct 03, 2019 Frequency: At least 5 of 7 days/Wk (IRF) Estimated Hrs Per Day: 1.5 hours per day Patient and/or Family Agrees t: Yes Safety Risks/Education Patient Education: Transfer Techniques, Correct Positioning, W/C Management, Disease Process, Safety Issues Teaching Recipient: Patient, Significant Other Teaching Methods: Demonstration Response to Teaching: Unable to Return Demonstration, Reinforcement Needed Time/GCodes Time In: 1000 Time Out: 1100 Total Billed Treatment Time: 60 Total Billed Treatment 1, EX20m,FA30m,NMN10m (30m co Rx PT OT, 30m PT only) LAUREN ESCOBAR POT WASHER Sep 17, 2019 11:08
--- NOTE | 2019-09-17 11:15 | Progress Note - Cardiology ---
Cardiology SOAP Progress Note Subjective: Somnolent. Does not report any symptoms Objective: I&O/Vital Signs 09/17/19 09/17/19 05:43 07:09 Temp 36.5 Pulse 76 Resp 18 B/P (MAP) 137/61 (86) Pulse Ox 95 O2 Delivery Room Air Room Air 09/17/19 00:00 Intake Total 674 ml Balance 674 ml Constitutional: well-developed, well-nourished, other (Drowsy, awakens easily, oriented to self only) Respiratory: No accessory muscle use, No respiratory distress; chest expansion is symmetric, chest is bilaterally symmetric, lungs clear to auscultation Cardiovascular: regular rate-rhythm (EKG shows SR with PVC's); No JVD; S1 and S2, systolic murmur Gastrointestional: soft, audible bowel sounds, other (PEG tube in place) Extremities: no lower extremity edema bilateral Neurologic/Psychiatric: other (moves right extremities; does not move left upper or lower extremity) Skin: No rash on exposed areas, No ulcerations on exposed areas Results/Procedures: Labs Laboratory Tests 09/17/19 04:49: White Blood Count 7.8, Red Blood Count 3.72L, Hemoglobin 10.0L, Hematocrit 32L, Mean Corpuscular Volume 87, Mean Corpuscular Hemoglobin 27, Mean Corpuscular Hemoglobin Concent 31L, Red Cell Distribution Width 16.0H, Platelet Count 296, Mean Platelet Volume 10.4, Neutrophils (%) (Auto) 67, Lymphocytes (%) (Auto) 18, Monocytes (%) (Auto) 12, Eosinophils (%) (Auto) 3, Basophils (%) (Auto) 1, Neutrophils # (Auto) 5.2, Lymphocytes # (Auto) 1.4, Monocytes # (Auto) 0.9, Eosinophils # (Auto) 0.2, Basophils # (Auto) 0.0, Prothrombin Time 17.4H, INR Comment 1.4, Sodium Level 135, Potassium Level 4.2, Chloride Level 102, Carbon Dioxide Level 25, Anion Gap 8, Blood Urea Nitrogen 28H, Creatinine 0.93, Estimat Glomerular Filtration Rate > 60, BUN/Creatinine Ratio 30, Glucose Level 92, Calcium Level 8.6, Corrected Calcium 9.1, Total Bilirubin 0.5, Aspartate Amino Transf (AST/SGOT) 25, Alanine Aminotransferase (ALT/SGPT) 27, Alkaline Phosphatase 73, Total Protein 6.2L, Albumin 3.4 Laboratory Tests 09/15/19 15:41 09/16/19 04:33 09/17/19 04:49 A/P: Assessment: Hematochezia on 09/15/19 (warfarin and ASA held) being managed by Dr Simon and Dr Flores 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 by Dr. Dias at [facility] Records from [facility] report h/o CVA x 3 (2008, 2013 x2) H/O PE in 2016 tx at [facility] Dysphagia - PEG tube in place HTN CAD - CABG x 4 vessel in February 2016 at [facility] by Dr. Regan - quadruple bypass with VILLATORO to LAD, saphenous vein graft to OM 1, saphenous vein T graft to D1, saphenous vein graft to LPDA. 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. Has been on warfarin H/O hematology w/u at [facility] which did not show hypercoagulable state H/O acute gangrenous cholecystitis for which he underwent cholecystectomy in July 2019 at [place] Documented h/o prostate cancer Plan: Treat GI bleed so that anticoag/antiplatelet therapy can be resumed Monitor labs KENNEDI SUÁREZ MD FACP [facility] Sep 17, 2019 11:15
--- NOTE | 2019-09-17 11:35 | Occupational Ther Daily Note ---
OT Current Status-Daily Note Subjective Pt in bed when OT entered room. No c/o pain. Pt. agreeable to therapy. Mental Status/Objective Patient Orientation: Unable to Assess Attachments: PEG Tube ADL-Treatment Therapy Code Descriptions/Definitions Functional [place] Measure: 0=Not Assessed/NA 4=Minimal Assistance 1=Total Assistance 5=Supervision or Setup 2=Maximal Assistance 6=Modified [place] 3=Moderate Assistance 7=Complete IndependenceSCALE: Activities may be completed with or without assistive devices. 8-Jbfbeqyjxg-psdvlas completes the activity by him/herself with no assistance from a helper. 5-Set-up or Clean-up Assistance-helper sets up or cleans up; patient completes activity. [place] assists only prior to or following the activity. 4-Supervision or Touching Assistance-helper provides verbal cues and/or touching/steadying and/or contact guard assistance as patient completes activity. Assistance may be provided throughout the activity or intermittently. 3-Partial/Moderate Assistance-helper does LESS THAN HALF the effort. [place] lifts, holds or supports trunk or limbs, but provides less than half the effort. 2-Substantial/Maximal Assistance-helper does MORE THAN HALF the effort. [place] lifts or holds trunk or limbs and provides more than half the effort. 2-Fjdbhtwbz-uhlrpp does ALL the effort. Patient does none of the effort to complete the activity. Or, the assistance of 2 or more helpers is required for the patient to complete the activity. If activity was not attempted, code reason: 7-Patient Refused. 9-Not Applicable-not attempted and the patient did not perform the activity before the current illness, exacerbation or injury. 10-Not Attempted due to Environmental Limitations-(lack of equipment, weather restraints, etc.). 88-Not Attempted due to Medical Conditions or Safety Concerns. Upper Body Dressing (QC): 2 (Max A) OT/PT co-treat ([id number]), skills of 2 clinician required for neuromuscular retraining, skilled instructions for modifications, transfers, standing and ADLs. PT working on bed mobility, w/c mobility, transfers and standing. OT working on ADLs, assist with positioning L UE and stabilizing pt during standing tasks. Assist to roll side to side and hold position while completing lower body dressing/positioning. Dependent with lower body dressing in supine. Max A for footwear. Pt demonstrates progress in coming to midline with eyes and head. Sarah lift from bed to w/c then pt able to propel w/c with assist to steer. Pt. able to complete sit-stand with Mod A. He tolerated 15 minutes PROM with L UE and AAROM with R UE in all planes. Pt. in bed with call light in reach when OT left the room. Other Treatment Pt completed sit to stand with max A x3, see PT notes for progress and technique. Education OT Patient Education: Correct positioning, Energy conservation, Progress toward Goal/Update tx plan, Purpose of tx/functional activities, Reviewed precautions, Rehab process, Safety issues, Transfer techniques Teaching Recipient: Patient Teaching Methods: Demonstration, Discussion Response to Teaching: Verbalize Understanding, Return Demonstration, Reinforcement Needed OT Short Term Goals Short Term Goals Time Frame: Sep 19, 2019 Shower/bathe self: 2 Upper body dressin Lower body dressin OT Shelter Goals [employer] [place] Goals Time Frame: Oct 03, 2019 Eating (QC): 4 Oral Hygiene (QC): 4 Toileting Hygiene (QC): 3 Shower/Bathe Self (QC): 3 Upper Body Dressing (QC): 3 Lower Body Dressing (QC): 2 On/Off Footwear (QC): 2 Additional Goals: 1-Demonstrate ADL Tasks, 2-Verbalize Understanding, 3- ImproveStrength/Aliyah 1=Demonstrate adherence to instructed precautions during ADL tasks. 2=Patient will verbalize/demonstrate understanding of assistive devices/modifications for ADL. 3=Patient will improve strength/tolerance for activity to enable patient to perform ADL's. OT Education/Plan Problem List/Assessment Assessment: Decreased Activ Tolerance, Decreased UE Strength, Dependent Transfers, Impaired Bed Mobility, Impaired Coordination, Impaired Funct Balance, Impaired I ADL's, Impaired Self-Care Skills, Restricted Funct UE ROM, Visual- Perceptual Deficit Discharge Recommendations Plan/Recommendations: Continue POC Treatment Plan/Plan of Care Treatment,Training & Education: Yes Patient would benefit from OT for education, treatment and training to promote independence in ADL's, mobility, safety and/or upper extremity function for ADL's. Plan of Care: ADL Retraining, Caregiver Training, Functional Mobility, Group Exercise/Act as Ind, Orthotic Fitting/Training, UE Funct Exercise/Act, UE Neuromus Re-Ed/Coord, Visual/Perceptual Retrain, W/C Management Training Treatment Duration: Oct 03, 2019 Frequency: At least 5 of 7 days/Wk (IRF) Estimated Hrs Per Day: 1.5 hours per day Agreement: Yes Rehab Potential: Poor Time/GCodes Start Time: 10:30 Stop Time: 11:30 Total Time Billed (hr/min): 60 Billed Treatment Time 1, ADL 2 (30 minutes), NM 3 (30 minutes) Co-treat with PT (10:30-11:00) See above note for designated roles, individual [id number] CALLIE LARIOS Sep 17, 2019 11:35
--- NOTE | 2019-09-17 13:46 | Occupational Ther Daily Note ---
OT Current Status-Daily Note Subjective Pt in bed when OT entered room. No c/o pain. Pt. agreeable to therapy. Mental Status/Objective Patient Orientation: Person ADL-Treatment Therapy Code Descriptions/Definitions Functional [place] Measure: 0=Not Assessed/NA 4=Minimal Assistance 1=Total Assistance 5=Supervision or Setup 2=Maximal Assistance 6=Modified [place] 3=Moderate Assistance 7=Complete IndependenceSCALE: Activities may be completed with or without assistive devices. 9-Dqnbdesoyb-oypxdbq completes the activity by him/herself with no assistance from a helper. 5-Set-up or Clean-up Assistance-helper sets up or cleans up; patient completes activity. [place] assists only prior to or following the activity. 4-Supervision or Touching Assistance-helper provides verbal cues and/or touching/steadying and/or contact guard assistance as patient completes activity. Assistance may be provided throughout the activity or intermittently. 3-Partial/Moderate Assistance-helper does LESS THAN HALF the effort. [place] lifts, holds or supports trunk or limbs, but provides less than half the effort. 2-Substantial/Maximal Assistance-helper does MORE THAN HALF the effort. [place] lifts or holds trunk or limbs and provides more than half the effort. 5-Rrsmyfhqh-hqoimr does ALL the effort. Patient does none of the effort to complete the activity. Or, the assistance of 2 or more helpers is required for the patient to complete the activity. If activity was not attempted, code reason: 7-Patient Refused. 9-Not Applicable-not attempted and the patient did not perform the activity before the current illness, exacerbation or injury. 10-Not Attempted due to Environmental Limitations-(lack of equipment, weather restraints, etc.). 88-Not Attempted due to Medical Conditions or Safety Concerns. Pt. tolerated 9 minutes sitting balance while seated with moderate support at EOB. Working on supine to EOB then sitting EOB maintaining midline. Mod A x1 to complete the movement to sitting, 2nd person assist for safety. Pt then was able to sit EOB with SBA though leaning heavily on R UE. When brought to midline, assist x2 to maintain upright posture and maintaining midline with head and body. Assist x2 for EOB to supine then to position. After therapy, pt lying in bed on L side with call light/phone in reach. Education OT Patient Education: Correct positioning, Progress toward Goal/Update tx plan, Purpose of tx/functional activities, Reviewed precautions, Rehab process Teaching Recipient: Patient Teaching Methods: Demonstration, Discussion Response to Teaching: Verbalize Understanding, Return Demonstration OT Short Term Goals Short Term Goals Time Frame: Sep 19, 2019 Shower/bathe self: 2 Upper body dressin Lower body dressin OT [facility] Goals [facility]sl [facility] Goals Time Frame: Oct 03, 2019 Eating (QC): 4 Oral Hygiene (QC): 4 Toileting Hygiene (QC): 3 Shower/Bathe Self (QC): 3 Upper Body Dressing (QC): 3 Lower Body Dressing (QC): 2 On/Off Footwear (QC): 2 Additional Goals: 1-Demonstrate ADL Tasks, 2-Verbalize Understanding, 3-ImproveStrength/Aliyah 1=Demonstrate adherence to instructed precautions during ADL tasks. 2=Patient will verbalize/demonstrate understanding of assistive devices/modifications for ADL. 3=Patient will improve strength/tolerance for activity to enable patient to perform ADL's. OT Education/Plan Problem List/Assessment Assessment: Decreased Activ Tolerance, Decreased UE Strength, Dependent Transfers, Impaired Bed Mobility, Impaired Funct Balance, Impaired I ADL's, Impaired Self-Care Skills, Restricted Funct UE ROM, Visual-Perceptual Deficit Discharge Recommendations Plan/Recommendations: Continue POC Treatment Plan/Plan of Care Treatment,Training & Education: Yes Patient would benefit from OT for education, treatment and training to promote independence in ADL's, mobility, safety and/or upper extremity function for ADL's. Plan of Care: ADL Retraining, Caregiver Training, Functional Mobility, Group Exercise/Act as Ind, Orthotic Fitting/Training, UE Funct Exercise/Act, UE Neuromus Re-Ed/Coord, Visual/Perceptual Retrain, W/C Management Training Treatment Duration: Oct 03, 2019 Frequency: At least 5 of 7 days/Wk (IRF) Estimated Hrs Per Day: 1.5 hours per day Agreement: Yes Rehab Potential: Poor Time/GCodes Start Time: 13:00 Stop Time: 13:15 Total Time Billed (hr/min): 15 Billed Treatment Time 1, NM (15 minutes) CALLIE LARIOS Sep 17, 2019 13:46
--- NOTE | 2019-09-17 14:32 | NUR ---
Received dietary consult regarding TF. According to Tay DIAMOND, pt had issues with nausea and vomiting over the weekend, caused by volume of TF per bolus. Would recommend that instead of current TF of 2 cans of Jevity 1.5 at 0600/1200/1700, and 1 can at 2100, that it go to 7 cans/day, with 1 can every 3hr starting at 6am. Flush with 60ml water instead of 100ml before and after each bolus for hydration status. This would provide 2485 kcal (31 kcal/kg); 106 g Pro (1.3 g Pro/kg); and 2100ml free water (with flushes). If pt is still having tolerance issues with bolus feeds, pt may benefit from continuous feeds for a time until his nausea and vomiting have resolved. Will continue to follow and reassess as pt needs, intake, and status change. Nima Carrasco, MS, RD, LD [phone]
--- NOTE | 2019-09-17 15:04 | Physical Therapy Daily Note ---
PT Daily Note-Current Subjective Pt. in bed positioned on left side. pt. denies pain, shakes head no, when asked where he worked all his life states "[employer]" also states "[employer] employees" Pain Location: No Pain Reported Comment: pt. whinces and pulls away when R arm and wrist were guided to top rail of Mental Status Attachments: PEG Tube Transfers SCALE: Activities may be completed with or without assistive devices. 4-Gsplvhutvb-yokgzft completes the activity by him/herself with no assistance from a helper. 5-Set-up or Clean-up Assistance-helper sets up or cleans up; patient completes activity. [place] assists only prior to or following the activity. 4-Supervision or Touching Assistance-helper provides verbal cues and/or touching/steadying and/or contact guard assistance as patient completes activity. Assistance may be provided throughout the activity or intermittently. 3-Partial/Moderate Assistance-helper does LESS THAN HALF the effort. [place] lifts, holds or supports trunk or limbs, but provides less than half the effort. 2-Substantial/Maximal Assistance-helper does MORE THAN HALF the effort. [place] lifts or holds trunk or limbs and provides more than half the effort. 2-Ysuqvnvur-ladcyk does ALL the effort. Patient does none of the effort to complete the activity. Or, the assistance of 2 or more helpers is required for the patient to complete the activity. If activity was not attempted, code reason: 7-Patient Refused. 9-Not Applicable-not attempted and the patient did not perform the activity before the current illness, exacerbation or injury. 10-Not Attempted due to Environmental Limitations-(lack of equipment, weather restraints, etc.). 88-Not Attempted due to Medical Conditions or Safety Concerns. Roll Left & Right (QC): 3 Exercises Supine Ex: Ankle pumps, Rolling, Heel Slides, Scooting, Straight leg raise, Hip abd/add Supine Reps: 15 (passive left active right) Treatments lateral trunk rolls also passive, attempted to have pt pull self up in bed by using RUE on top rail and RLE with this LEVELMAN stbilizing R foot/leg, pt whinces and somewhat indicates RUE is painful at wrist Assessment Current Status: Fair Progress more alert, answering questions appropriately, states he is cold, warmed blanket given at end of Rx PT Short Term Goals Short Term Goals Time Frame: Sep 19, 2019 Roll Left & Right: 2 Sit to lyin Lying to sitting on side of be: 2 Sit to stand: 2 Chair/cpk-qd-endrv transfer: 2 Wheel 50ft w/2 turns: 2 Wheel 150 feet: 2 PT Fdc Goals Fdc Goals PT Fdc Goals Time Frame: Oct 03, 2019 Roll Left & Right (QC): 3 Sit to Lying (QC): 3 Lying-Sitting on Side/Bed(QC): 3 Sit to Stand (QC): 3 Chair/Rts-sz-Atbuw Xfer(QC): 3 Toilet Transfer (QC): 3 Car Transfer (QC): 3 Does the Patient Walk: No and Walking Goal NOT indicated Walk 10 feet (QC): 88 Walk 50ft with 2 Turns (QC): 88 Walk 150 ft (QC): 88 Walking 10ft on Uneven Surface: 88 1 Step (curb) (QC): 88 4 Steps (QC): 88 12 Steps (QC): 88 Picking up an Object (QC): 88 Wheel 50 feet with 2 turns (QC: 3 Wheel 150 feet: 3 PT Plan Treatment/Plan Treatment Plan: Continue Plan of Care Treatment Plan: Bed Mobility, Education, Functional Activity Aliyah, Functional Strength, Group Therapy, Gait, Safety, Therapeutic Exercise, Transfers Treatment Duration: Oct 03, 2019 Frequency: At least 5 of 7 days/Wk (IRF) Estimated Hrs Per Day: 1.5 hours per day Patient and/or Family Agrees t: Yes Safety Risks/Education Patient Education: Transfer Techniques, Correct Positioning Time/GCodes Time In: 1440 Time Out: 1500 Total Billed Treatment Time: 20 Total Billed Treatment 1,EX20m LAUREN ESCOBAR LEVELMAN Sep 17, 2019 15:04
[2019-09-17 17:37] VITALS: BP 117/55
[2019-09-17] MEDS: ALPRAZolam 0.25 MG (XANAX) TAB PO PRN (21:00)
[2019-09-18] MEDS: SUCRALFATE 1 GM (CARAFATE) TAB PO SCH ×5 (00:54→23:10)
[2019-09-18] MEDS: LEVOTHYROXINE 75 MCG (LEVOTHROID) TABLET PO SCH (05:19)
[2019-09-18 05:36] VITALS: BP 139/55
--- NOTE | 2019-09-18 06:15 | PM&R Progress Note ---
Subjective HPI/CC On Admission Date Seen by Provider: Sep 18, 2019 Time Seen by Provider: 10:30 Subjective/Events-last exam 09/18/19: Insomnia is an issue Worked with PT today but seems to take a lot of naps during the day which disrupts the nighttime sleeping No pain is reported 09/17/19: Pt sleeps most of the time No major changes No bloody stools Off of Lovenox, Coumadin and Aspirin Second GI bleed in the last few weeks 09/16/19: No bloody stools today Hgb stable 10.3 Is not strong enough to undergo C-scope prep Dr Flores saw him this morning Holding ASA Lovenox Coumadin Had GI at [facility] also Decreased cognition 09/15/19: Patient had been doing pretty well when I rounded No more nausea and vomiting like yesterday Tube feeding was restarted slowly I stopped the Clinimix since tube feedings were started N.p.o. 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 Flores general surgery was consulted and checked hemoglobin and hematocrit. 09/14/19: Had nausea and vomiting all last night Needs IV fluids gently so we'll start that today Urinary incontinence noted No fecal incontinence Holding tube feedings for right now Barium swallow today at 11:30 INR 1.4 will increase dose and provide Lovenox 09/13/19: Patient doing pretty well today Sleeping currently Therapy worked with him today Modified Barium Swallow scheduled Hemoglobin 9.6 Disoriented at times Bowels moved yesterday Conferred with RN Reviewed Therapy notes Checked Meds and Labs Review of Systems General: Fatigue, Malaise Neurological: Weakness Objective Exam Vital Signs Vital Signs Date Time Temp Pulse Resp B/P (MAP) Pulse Ox O2 Delivery O2 Flow Rate FiO2 09/18/19 17:00 35.8 71 16 123/73 (90) 100 Room Air Capillary Refill : Less Than 3 Seconds General Appearance: No Apparent Distress, WD/WN, Chronically ill HEENT: PERRL/EOMI, Normal ENT Inspection, Pharynx Normal Neck: Full Range of Motion, Normal Inspection, Non Tender, Supple, Carotid Bruit Respiratory: Chest Non Tender, Lungs Clear, Normal Breath Sounds, No Accessory Muscle Use, No Respiratory Distress Cardiovascular: No Edema, No Gallop, No JVD, No Murmur, Normal Peripheral Pulses, Irregularly Irregular Gastrointestinal: Normal Bowel Sounds, No Organomegaly, No Pulsatile Mass, Non Tender, Soft Back: Normal Inspection, No CVA Tenderness, No Vertebral Tenderness Extremity: Normal Capillary Refill, Normal Inspection, Normal Range of Motion, Non Tender, No Calf Tenderness, Pedal Edema Neurologic/Psychiatric: Alert, Oriented x3, Normal 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 FIM Transfers Therapy Code Descriptions/Definitions Functional [place] Measure: 0=Not Assessed/NA 4=Minimal Assistance 1=Total Assistance 5=Supervision or Setup 2=Maximal Assistance 6=Modified [place] 3=Moderate Assistance 7=Complete IndependenceSCALE: Activities may be completed with or without assistive devices. 2-Osopsjgjrg-lkxwntx completes the activity by him/herself with no assistance from a helper. 5-Set-up or Clean-up Assistance-helper sets up or cleans up; patient completes a ctivity. [place] assists only prior to or following the activity. 4-Supervision or Touching Assistance-helper provides verbal cues and/or touching/steadying and/or contact guard assistance as patient completes activity. Assistance may be provided throughout the activity or intermittently. 3-Partial/Moderate Assistance-helper does LESS THAN HALF the effort. [place] lifts, holds or supports trunk or limbs, but provides less than half the effort. 2-Substantial/Maximal Assistance-helper does MORE THAN HALF the effort. [place] lifts or holds trunk or limbs and provides more than half the effort. 2-Ofimsrzxr-ddoaqs does ALL the effort. Patient does none of the effort to complete the activity. Or, the assistance of 2 or more helpers is required for the patient to complete the activity. If activity was not attempted, code reason: 7-Patient Refused. 9-Not Applicable-not attempted and the patient did not perform the activity before the current illness, exacerbation or injury. 10-Not Attempted due to Environmental Limitations-(lack of equipment, weather restraints, etc.). 88-Not Attempted due to Medical Conditions or Safety Concerns. Roll Left to Right (QC): 3 Sit to Lying (QC): 1 Sit to Stand (QC): 1 Chair/Rjz-st-Vhota Xfer(QC): 1 Car Transfer (QC): 1 Gait Training Does the Patient Walk?: No and Walking Goal NOT indicated Walk 10 feet (QC): 88 Walk 50 ft with 2 Turns(QC): 88 Walk 150 ft (QC): 88 Walking 10ft/uneven surface-QC: 88 Wheelchair Training Does the Pt Use a Wheelchair?: Yes Distance: 150'x2 Wheel 50 ft with 2 turns (QC): 2 (mod assist to guide chair.) Wheel 150 ft (QC): 1 Type of Wheelchair: Manual Stair Training 1 Step (curb) (QC): 88 4 Steps (QC): 88 12 Steps (QC): 88 Balance Picking up an Object (QC): 88 ADL-Treatment Eating (QC): 88 (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) Oral Hygiene (QC): 7 (denies oral sponge at this time) Bathing Location: Chest, Abdomen, Perineal Area Shower/Bathe Self (QC): 1 Upper Body Dressing (QC): 2 (Max A) Lower Body Dressing (QC): 1 On/Off Footwear (QC): 2 Toileting Hygiene (QC): 1 (incontinent) Toilet Transfer (QC): 88 (Using bedpan) Assessment/Plan Assessment and Plan Assess & Plan/Chief Complaint Assessment: CVA Left sided weakness Left sided neglect PEG tube status Dysphagia Aspiration hx with PNA CAD AF Coumadin treatment GIB 09/14/19 Plan: IRF protocol ST to work on dysphagia TF to be maintained Coumadin treatment Cardiology evaluation 09/13/19: Continue aggressive treatment Barium Swallow Monitor Hemoglobin 09/14/19: Give gentle IV fluids Increase INR with Coumadin with Lovenox bridge Barium swallow today 09/15/2019: Monitor GI bleed Hold Coumadin and Lovenox and aspirin Hold tube feedings Consult general surgery for endoscopies Maintain n.p.o. 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
--- NOTE | 2019-09-18 07:37 | Progress Note - Surgery ---
YUE HARRIS MED STUDENT 09/18/19 0737: Subjective Date Seen by a Provider: Sep 18, 2019 Time Seen by a Provider: 07:10 Subjective/Events-last exam Pt appears comfortable and in no acute distress. L sided weakness still prominent, but reports no constitutional weakness. Denies nausea, vomiting, fever, chills. Abdomen nontender. Objective Exam Vital Signs Date Time Temp Pulse Resp B/P (MAP) Pulse Ox O2 Delivery O2 Flow Rate FiO2 09/18/19 05:36 36.7 84 20 139/55 (83) 94 Room Air 09/17/19 21:00 Room Air 09/17/19 19:07 94 Room Air 09/17/19 17:37 36.7 85 16 117/55 (75) 97 Room Air 09/17/19 09:00 Room Air I & O 09/18/19 07:00 Intake Total 2576 ml Balance 2576 ml Capillary Refill : Less Than 3 Seconds General Appearance: No Apparent Distress, WD/WN, Chronically ill HEENT: PERRL/EOMI, Normal ENT Inspection, Pharynx Normal Neck: Full Range of Motion, Normal Inspection, Non Tender, Supple, Carotid Bruit Respiratory: Chest Non Tender, Lungs Clear, Normal Breath Sounds, No Accessory Muscle Use, No Respiratory Distress Cardiovascular: No Edema, No Gallop, No JVD, No Murmur, Normal Peripheral Pulses, Irregularly Irregular Gastrointestinal: soft, tenderness (minimal around gastrostomy tube in epigastric area) Extremity: Normal Capillary Refill, Normal Inspection, Normal Range of Motion, Non Tender, No Calf Tenderness, Pedal Edema Neurologic/Psychiatric: Alert, Oriented x3, Normal 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 If has bleeding again or drop would scope. Clinical Quality Measures DVT/VTE Risk/Contraindication: Risk Factor Score Per Nursin RFS Level Per Nursing on Admit: 4+=Very High CELSO FLORES DO 09/18/19 2017: Subjective Subjective/Events-last exam Patient laying in bed. No acute distress. States no abdominal pain. Tolerating feeds through G tube. Hgb stable. Left sided weakness. Denies n/v fever sweats chills shortness of breath or chest pain. Objective Exam General Appearance: No Apparent Distress, WD/WN, Chronically ill HEENT: PERRL/EOMI, Normal ENT Inspection Neck: Normal Inspection, Non Tender Respiratory: Chest Non Tender, No Accessory Muscle Use Cardiovascular: No Edema, Irregularly Irregular Gastrointestinal: non tender (gastrostomy tube luq), soft Neurologic/Psychiatric: Alert, Facial Droop (left), Motor Weakness (left sided) Skin: Normal Color, Warm/Dry Lymphatic: No Adenopathy Assessment/Plan Assessment/Plan Assessment/Plan anemia secondary to blood loss anticoagulation on hold Melena-resolved Epigastric abdominal pain likely related to gastrostomy tube placement recent CVA hgb stable, could restart anticoagulation and see if has any further bleeding if does would plan on endoscopy not sure if patient would tolerate prep at this time Supervisory-Addendum Brief Verification & Attestation Participated in pt care: history, MDM, physical Personally performed: exam, history, MDM, supervision of care Care discussed with: Medical Student Procedures: n/a Results interpretation: Verified all documentation Verification and Attestation of Medical Student E/M Service A medical student performed and documented this service in my presence. I reviewed and verified all information documented by the medical student and made modifications to such information, when appropriate. I personally performed the physical exam and medical decision making. Celso Flores, Sep 18, 2019,20:17 YUE HARRIS MED STUDENT Sep 18, 2019 07:37 CELSO FLORES DO Sep 18, 2019 20:17
--- NOTE | 2019-09-18 07:50 | NUR ---
PT WAS SITTING UP IN BED. PT WAS IN NO RESPIRATORY DISTRESS. Addendum: 09/18/19 at 0750 by ARA NESBITT RT Amended: Links added.
--- NOTE | 2019-09-18 09:43 | Physical Therapy Daily Note ---
PT Daily Note-Current Subjective Patient in bed pre tx, voices no complaints of pain, will be co-treating with OT due to poor patient mobility, strength, endurance, sitting and standing balance, left hemiparesis, pushers syndrome, the need to coordinate UE and LE during activity. Appearance Patient in WC post tx, will continue with OT for further tx. Mental Status Patient Orientation: Person, Unable to Assess Transfers SCALE: Activities may be completed with or without assistive devices. 8-Evutpprwys-jxgxrqz completes the activity by him/herself with no assistance from a helper. 5-Set-up or Clean-up Assistance-helper sets up or cleans up; patient completes activity. [place] assists only prior to or following the activity. 4-Supervision or Touching Assistance-helper provides verbal cues and/or touching/steadying and/or contact guard assistance as patient completes activity. Assistance may be provided throughout the activity or intermittently. 3-Partial/Moderate Assistance-helper does LESS THAN HALF the effort. [place] lifts, holds or supports trunk or limbs, but provides less than half the effort. 2-Substantial/Maximal Assistance-helper does MORE THAN HALF the effort. [place] lifts or holds trunk or limbs and provides more than half the effort. 4-Kkagncqym-nurkuu does ALL the effort. Patient does none of the effort to complete the activity. Or, the assistance of 2 or more helpers is required for the patient to complete the activity. If activity was not attempted, code reason: 7-Patient Refused. 9-Not Applicable-not attempted and the patient did not perform the activity before the current illness, exacerbation or injury. 10-Not Attempted due to Environmental Limitations-(lack of equipment, weather restraints, etc.). 88-Not Attempted due to Medical Conditions or Safety Concerns. Roll Left & Right (QC): 2 Sit to Stand (QC): 1 Chair/Sti-kp-Reqdh Xfer(QC): 1 Patient in bed, needs dressed and brief changed, patient has to roll several times to each side due to this and get karson sling under him, karson to , training to therapy gym 150' (max assist, patient assists with his right arm some), stood x1 in parallel bars and then x3 outside of parallel bars, 3 people to stand each time, patient pushes to the left side, needs much assist from several people to keep his legs in place and keep balance. Treatments PT worked on rolling, bed mobility, standing, WC mobility, assist with dressing and changing brief, OT worked on dressing, changing brief, UE safety and positioning, assist with standing. Assessment Current Status: Poor Progress no change in mobility PT Short Term Goals Short Term Goals Time Frame: Sep 19, 2019 Roll Left & Right: 2 Sit to lyin Lying to sitting on side of be: 2 Sit to stand: 2 Chair/nqz-mf-vriyb transfer: 2 Wheel 50ft w/2 turns: 2 Wheel 150 feet: 2 PT Custodial Goals Custodial Goals PT Custodial Goals Time Frame: Oct 03, 2019 Roll Left & Right (QC): 3 Sit to Lying (QC): 3 Lying-Sitting on Side/Bed(QC): 3 Sit to Stand (QC): 3 Chair/Uvz-qs-Ezubf Xfer(QC): 3 Toilet Transfer (QC): 3 Car Transfer (QC): 3 Does the Patient Walk: No and Walking Goal NOT indicated Walk 10 feet (QC): 88 Walk 50ft with 2 Turns (QC): 88 Walk 150 ft (QC): 88 Walking 10ft on Uneven Surface: 88 1 Step (curb) (QC): 88 4 Steps (QC): 88 12 Steps (QC): 88 Picking up an Object (QC): 88 Wheel 50 feet with 2 turns (QC: 3 Wheel 150 feet: 3 PT Plan Problem List Problem List: Activity Tolerance, Functional Strength, Safety, Balance, Gait, Transfer, Bed Mobility, ROM Treatment/Plan Treatment Plan: Continue Plan of Care Treatment Plan: Bed Mobility, Education, Functional Activity Aliyah, Functional Strength, Group Therapy, Gait, Safety, Therapeutic Exercise, Transfers Treatment Duration: Oct 03, 2019 Frequency: At least 5 of 7 days/Wk (IRF) Estimated Hrs Per Day: 1.5 hours per day Patient and/or Family Agrees t: Yes Safety Risks/Education Patient Education: Transfer Techniques, Correct Positioning, W/C Management, Safety Issues Teaching Recipient: Patient Teaching Methods: Demonstration, Discussion Response to Teaching: Reinforcement Needed Time/GCodes Time In: 0900 Time Out: 944 Total Billed Treatment Time: 45 Total Billed Treatment 1 visit FA 45' co-treated with OT for 45 min RUY MCGRATH PT Sep 18, 2019 09:43
[2019-09-18] MEDS: PANTOPRAZOLE 2 MG/ML LIQUID 200 ML (PROTONIX) PEG SCH ×6 (09:55→22:48)
[2019-09-18] MEDS: LACTOBACILLUS ACIDOPHILUS (PROBIOTIC) CAPSULE PEG SCH ×2 (10:02→22:47)
[2019-09-18] MEDS: meTOprolol TARTRATE 25 MG (LOPRESSOR) TABLET PO SCH ×2 (10:03→17:06)
--- NOTE | 2019-09-18 11:10 | Occupational Ther Daily Note ---
OT Current Status-Daily Note Subjective Pt sleeping in bed. Max cues to wake pt. Pt required encouragement to participate in therapy due to sleepiness. Mental Status/Objective Patient Orientation: Person, Situation Attachments: PEG Tube ADL-Treatment Therapy Code Descriptions/Definitions Functional [place] Measure: 0=Not Assessed/NA 4=Minimal Assistance 1=Total Assistance 5=Supervision or Setup 2=Maximal Assistance 6=Modified [place] 3=Moderate Assistance 7=Complete IndependenceSCALE: Activities may be completed with or without assistive devices. 7-Dpahfcxhvs-vvhjoah completes the activity by him/herself with no assistance from a helper. 5-Set-up or Clean-up Assistance-helper sets up or cleans up; patient completes activity. [place] assists only prior to or following the activity. 4-Supervision or Touching Assistance-helper provides verbal cues and/or touching/steadying and/or contact guard assistance as patient completes activity. Assistance may be provided throughout the activity or intermittently. 3-Partial/Moderate Assistance-helper does LESS THAN HALF the effort. [place] lifts, holds or supports trunk or limbs, but provides less than half the effort. 2-Substantial/Maximal Assistance-helper does MORE THAN HALF the effort. [place] lifts or holds trunk or limbs and provides more than half the effort. 4-Igcqjputm-xfvzei does ALL the effort. Patient does none of the effort to complete the activity. Or, the assistance of 2 or more helpers is required for the patient to complete the activity. If activity was not attempted, code reason: 7-Patient Refused. 9-Not Applicable-not attempted and the patient did not perform the activity before the current illness, exacerbation or injury. 10-Not Attempted due to Environmental Limitations-(lack of equipment, weather restraints, etc.). 88-Not Attempted due to Medical Conditions or Safety Concerns. Lower Body Dressing (QC): 1 On/Off Footwear: 2 Toileting Hygiene (QC): 1 Other Treatment OT/PT co-treat ([id number]), skills of 2 clinician required for neuromuscular retraining, skilled instructions for modifications, transfers, standing and ADLs. PT working on bed mobility, w/c mobility, transfers and standing. OT working on ADLs, assist with positioning L UE and stabilizing pt during standing tasks. Assist to roll side to side and hold position while completing lower body dressing/positioning. Dependent with lower body dressing in supine. Max A for footwear. Pt demonstrates progress in coming to midline with eyes and head. Sarah lift from bed to w/c then pt able to propel w/c with assist to steer. Pt. able to complete sit-stand with assist x3, see PT note for progress. Pt. in bed with call light in reach when OT left the room. Safety measures in place. OT Short Term Goals Short Term Goals Time Frame: Sep 19, 2019 Shower/bathe self: 2 Upper body dressin Lower body dressin OT Storage Wharfage Clerk Goals Skilled Nursing Goals Time Frame: Oct 03, 2019 Eating (QC): 4 Oral Hygiene (QC): 4 Toileting Hygiene (QC): 3 Shower/Bathe Self (QC): 3 Upper Body Dressing (QC): 3 Lower Body Dressing (QC): 2 On/Off Footwear (QC): 2 Additional Goals: 1-Demonstrate ADL Tasks, 2-Verbalize Understanding, 3-ImproveStrength/Aliyah 1=Demonstrate adherence to instructed precautions during ADL tasks. 2=Patient will verbalize/demonstrate understanding of assistive devices/modifications for ADL. 3=Patient will improve strength/tolerance for activity to enable patient to perform ADL's. OT Education/Plan Problem List/Assessment Assessment: Decreased Activ Tolerance, Decreased UE Strength, Dependent Transfers, Impaired Bed Mobility, Impaired Coordination, Impaired Funct Balance, Impaired I ADL's, Impaired Self-Care Skills, Restricted Funct UE ROM, Visual- Perceptual Deficit Discharge Recommendations Plan/Recommendations: Continue POC Treatment Plan/Plan of Care Patient would benefit from OT for education, treatment and training to promote independence in ADL's, mobility, safety and/or upper extremity function for ADL's. Plan of Care: ADL Retraining, Caregiver Training, Functional Mobility, Group Exercise/Act as Ind, Orthotic Fitting/Training, UE Funct Exercise/Act, UE Neuromus Re-Ed/Coord, Visual/Perceptual Retrain, W/C Management Training Treatment Duration: Oct 03, 2019 Frequency: At least 5 of 7 days/Wk (IRF) Estimated Hrs Per Day: 1.5 hours per day Agreement: Yes Rehab Potential: Poor Time/GCodes Start Time: 09:00 Stop Time: 10:00 Total Time Billed (hr/min): 60 Billed Treatment Time 1 visit-ADL 1 (20 min) NM 3 (40 min) KUNCE,CALLIE MARA Sep 18, 2019 11:10
--- NOTE | 2019-09-18 11:58 | Occupational Ther Daily Note ---
OT Current Status-Daily Note Subjective Pt sleeping in bed, barely open eyes. Slept through treatment. Mental Status/Objective Patient Orientation: Unable to Assess Attachments: [place]leton Catheter ADL-Treatment Therapy Code Descriptions/Definitions Functional [place] Measure: 0=Not Assessed/NA 4=Minimal Assistance 1=Total Assistance 5=Supervision or Setup 2=Maximal Assistance 6=Modified [place] 3=Moderate Assistance 7=Complete IndependenceSCALE: Activities may be completed with or without assistive devices. 8-Fxwlqqdihp-krmswoq completes the activity by him/herself with no assistance from a helper. 5-Set-up or Clean-up Assistance-helper sets up or cleans up; patient completes activity. [place] assists only prior to or following the activity. 4-Supervision or Touching Assistance-helper provides verbal cues and/or touching/steadying and/or contact guard assistance as patient completes activity. Assistance may be provided throughout the activity or intermittently. 3-Partial/Moderate Assistance-helper does LESS THAN HALF the effort. [place] lifts, holds or supports trunk or limbs, but provides less than half the effort. 2-Substantial/Maximal Assistance-helper does MORE THAN HALF the effort. [place] lifts or holds trunk or limbs and provides more than half the effort. 3-Spbredbwp-sktqag does ALL the effort. Patient does none of the effort to complete the activity. Or, the assistance of 2 or more helpers is required for the patient to complete the activity. If activity was not attempted, code reason: 7-Patient Refused. 9-Not Applicable-not attempted and the patient did not perform the activity before the current illness, exacerbation or injury. 10-Not Attempted due to Environmental Limitations-(lack of equipment, weather restraints, etc.). 88-Not Attempted due to Medical Conditions or Safety Concerns. Other Treatment PROM to L UE. Pt would twist away from L UE, probably due to pain though pt kept eyes closed and no vocalizing. Tone noted at end ranges. No intentional movement noted. After therapy, nrsg in room. Call light/phone in reach. All needs met in room. OT Short Term Goals Short Term Goals Time Frame: Sep 19, 2019 Shower/bathe self: 2 Upper body dressin Lower body dressin OT Lens Blocker Goals Lens Blocker Goals Time Frame: Oct 03, 2019 Eating (QC): 4 Oral Hygiene (QC): 4 Toileting Hygiene (QC): 3 Shower/Bathe Self (QC): 3 Upper Body Dressing (QC): 3 Lower Body Dressing (QC): 2 On/Off Footwear (QC): 2 Additional Goals: 1-Demonstrate ADL Tasks, 2-Verbalize Understanding, 3- ImproveStrength/Aliyah 1=Demonstrate adherence to instructed precautions during ADL tasks. 2=Patient will verbalize/demonstrate understanding of assistive devices/modifications for ADL. 3=Patient will improve strength/tolerance for activity to enable patient to perform ADL's. OT Education/Plan Problem List/Assessment Assessment: Decreased Activ Tolerance, Decreased Safety Aware, Decreased UE Strength, Dependent Transfers, Impaired Bed Mobility, Impaired Cognition, Impaired Coordination, Impaired Funct Balance, Impaired I ADL's, Impaired Self- Care Skills, Restricted Funct UE ROM, Visual-Perceptual Deficit Discharge Recommendations Plan/Recommendations: Continue POC Treatment Plan/Plan of Care Patient would benefit from OT for education, treatment and training to promote independence in ADL's, mobility, safety and/or upper extremity function for ADL's. Plan of Care: ADL Retraining, Caregiver Training, Functional Mobility, Group Exercise/Act as Ind, Orthotic Fitting/Training, UE Funct Exercise/Act, UE Neuromus Re-Ed/Coord, Visual/Perceptual Retrain, W/C Management Training Treatment Duration: Oct 03, 2019 Frequency: At least 5 of 7 days/Wk (IRF) Estimated Hrs Per Day: 1.5 hours per day Agreement: Yes Rehab Potential: Poor Time/GCodes Start Time: 11:25 Stop Time: 11:40 Total Time Billed (hr/min): 15 Billed Treatment Time 1 visit-NM 1 (15 min) CALLIE LARIOS Sep 18, 2019 11:58
--- NOTE | 2019-09-18 12:56 | Speech Therapy Daily Note ---
Speech Daily Progress Note Subjective Date Seen by Provider: Sep 18, 2019 Time Seen by Provider: 00:30 Patient resting in his bed and was difficult to arouse. Patient's HOB raised and light turned on which was affective in alert increase. Objective Patient completed OME for improving speech with buccal stimulation completed with damp toothette at 70%. Patient completed q/a related to his needs at 90% given minimal cues. Assessment Assessment Current Status: Fair Progress Treatment Plan Continue Plan of Care Speech Short Term Goals Short Term Goals Short Term Goals 1) Patient will complete expressive language exercises at 90% or greater with minimal cues. 2) Patient will complete OME x10 with 90% or greater with minimal cues. 3) Patient will complete oral trials with 90% or greater without s/s of aspiration. Speech Residential Goals Gas Engine Operator Compressors Goals Patient will improve speech production for effective communication of his wants/needs. Patient will maintain adequate nutrition/hydration via PEG and/or oral intake. Speech-Plan Patient/Family Goals Patient/Family Goals: Patient plans on returning to his home upon rehab discharge. This discharge situation may be changed due to patient's medical status at the time of discharge and progress made. Treatment Plan Speech Therapy Treatment Plan: Continue Plan of Care Treatment Duration: Sep 28, 2019 Frequency: 4 times per week (Patient will receive skilled ST 4-5x per week) Estimated Hrs Per Day: .5 hour per day Rehab Potential: Poor Barriers to Learning: Patient's recent CVA, decreased progress with overall improvement Pt/Family Agrees to Plan: Yes Safety Risks/Education Teaching Recipient: Patient Teaching Methods: Demonstration, Discussion Response to Teaching: Verbalize Understanding, Return Demonstration, Reinforcement Needed Education Topics Provided: Continued safey in his room and utilization of call light as needed Time Speech Therapy Time In: 08:30 Speech Therapy Time Out: 09:00 Total Billed Time: 30 Billed Treatment Time 1, SLEARNEST Marrufo Sep 18, 2019 12:56
--- NOTE | 2019-09-18 14:17 | Cardiology Progress Note ---
Cardiology SOAP Progress Note Subjective: No cardiac complaints. Objective: I&O/Vital Signs 09/18/19 05:36 Temp 36.7 Pulse 84 Resp 20 B/P (MAP) 139/55 (83) Pulse Ox 94 O2 Delivery Room Air 09/18/19 00:00 Intake Total 1820 ml Balance 1820 ml Constitutional: well-developed, well-nourished, other (Drowsy, awakens easily, oriented to self only) Respiratory: No accessory muscle use, No respiratory distress; chest expansion is symmetric, chest is bilaterally symmetric, lungs clear to auscultation Cardiovascular: regular rate-rhythm (EKG shows SR with PVC's); No JVD; S1 and S2, systolic murmur Gastrointestional: soft, audible bowel sounds, other (PEG tube in place) Extremities: no lower extremity edema bilateral Neurologic/Psychiatric: other (moves right extremities; does not move left upper or lower extremity) Skin: No rash on exposed areas, No ulcerations on exposed areas A/P: Assessment/Dx: Hematochezia on 09/15/19 (warfarin and ASA held) being managed by Dr Simon and Dr Flores 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 Dias at [facility] Records from [facility] report h/o CVA x 3 (2008, 2013 x2) H/O PE in 2016 tx at [facility] Dysphagia - PEG tube in place HTN CAD - CABG x 4 vessel in February 2016 at [facility] by Dr. Regan - quadruple bypass with VILLATORO to LAD, saphenous vein graft to OM 1, saphenous vein T graft to D1, saphenous vein graft to LPDA. 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 Has been on warfarin H/O hematology w/u at [facility] which did not show hypercoagulable state H/O acute gangrenous cholecystitis for which he underwent cholecystectomy in July 2019 at [place], [place] Documented h/o prostate cancer Plan: Plan: Treat GI bleed so that anticoag/antiplatelet therapy can be resumed Monitor labs Thank you for your consultation. Please call me if you have any questions. Cresencio Sweet MD, FACP, FACC, FSCAI, FHRS, CCDS Interventional Cardiology Cardiac Electrophysiology Vascular Medicine and Endovascular Interventions Miguel SWEET MD Sep 18, 2019 14:17
--- NOTE | 2019-09-18 15:42 | Physical Therapy Daily Note ---
PT Daily Note-Current Subjective Pt laying L sidelying upon arrival. Pt agrees to Ex for PT tx. Pain Location: No Pain Reported Mental Status Patient Orientation: Person, Place Transfers SCALE: Activities may be completed with or without assistive devices. 0-Vxlaumrlvk-rnbwwic completes the activity by him/herself with no assistance from a helper. 5-Set-up or Clean-up Assistance-helper sets up or cleans up; patient completes activity. [place] assists only prior to or following the activity. 4-Supervision or Touching Assistance-helper provides verbal cues and/or touching/steadying and/or contact guard assistance as patient completes activity. Assistance may be provided throughout the activity or intermittently. 3-Partial/Moderate Assistance-helper does LESS THAN HALF the effort. [place] lifts, holds or supports trunk or limbs, but provides less than half the effort. 2-Substantial/Maximal Assistance-helper does MORE THAN HALF the effort. [place] lifts or holds trunk or limbs and provides more than half the effort. 5-Gouiexxhs-oxrnkk does ALL the effort. Patient does none of the effort to complete the activity. Or, the assistance of 2 or more helpers is required for the patient to complete the activity. If activity was not attempted, code reason: 7-Patient Refused. 9-Not Applicable-not attempted and the patient did not perform the activity before the current illness, exacerbation or injury. 10-Not Attempted due to Environmental Limitations-(lack of equipment, weather restraints, etc.). 88-Not Attempted due to Medical Conditions or Safety Concerns. Roll Left & Right (QC): 3 Exercises Supine Ex: Bridging, Ankle pumps, Quad Set, Glut sets, Heel Slides Supine Reps: 20 Treatments Pt completes Supine EX in bed then RAGS LABORER & Sp notice pt's shorts are damp. RAGS LABORER assists with brief and shorts change then pt rests with all needs met, call light next to pt. Assessment Current Status: Fair Progress Pt needs TC and VC at times to complete tasks. PT Short Term Goals Short Term Goals Time Frame: Sep 19, 2019 Roll Left & Right: 2 Sit to lyin Lying to sitting on side of be: 2 Sit to stand: 2 Chair/bpk-wb-zyhcy transfer: 2 Wheel 50ft w/2 turns: 2 Wheel 150 feet: 2 PT Technical Information Specialist Goals Halfway Goals PT Halfway Goals Time Frame: Oct 03, 2019 Roll Left & Right (QC): 3 Sit to Lying (QC): 3 Lying-Sitting on Side/Bed(QC): 3 Sit to Stand (QC): 3 Chair/Dds-uu-Vtfor Xfer(QC): 3 Toilet Transfer (QC): 3 Car Transfer (QC): 3 Does the Patient Walk: No and Walking Goal NOT indicated Walk 10 feet (QC): 88 Walk 50ft with 2 Turns (QC): 88 Walk 150 ft (QC): 88 Walking 10ft on Uneven Surface: 88 1 Step (curb) (QC): 88 4 Steps (QC): 88 12 Steps (QC): 88 Picking up an Object (QC): 88 Wheel 50 feet with 2 turns (QC: 3 Wheel 150 feet: 3 PT Plan Problem List Problem List: Activity Tolerance, Functional Strength, Safety, Gait, Transfer Treatment/Plan Treatment Plan: Continue Plan of Care Treatment Plan: Bed Mobility, Education, Functional Activity Aliyah, Functional Strength, Group Therapy, Gait, Safety, Therapeutic Exercise, Transfers Treatment Duration: Oct 03, 2019 Frequency: At least 5 of 7 days/Wk (IRF) Estimated Hrs Per Day: 1.5 hours per day Patient and/or Family Agrees t: Yes Safety Risks/Education Patient Education: Transfer Techniques, Correct Positioning, Safety Issues Teaching Recipient: Patient Teaching Methods: Discussion Response to Teaching: Verbalize Understanding, Reinforcement Needed Time/GCodes Time In: 1435 Time Out: 1515 Total Billed Treatment Time: 40 Total Billed Treatment 1, EX (15m) & FA x2 (25m) ANTHONY DELEON RAGS LABORER Sep 18, 2019 15:42
[2019-09-18] MEDS: DOCUSATE SODIUM 100 MG (COLACE) CAP PO SCH ×2 (16:02→22:47)
[2019-09-18] MEDS: polyethylene glycoL POWDER 17 GM (MIRALAX) PACK PO SCH ×2 (16:02→22:47)
[2019-09-18] MEDS: SENNA W/DOCUSATE (SENOKOT S) TABLET PO SCH ×2 (16:03→22:47)
[2019-09-18 17:00] VITALS: BP 123/73
[2019-09-18] MEDS: SCOPOLAMINE 1.5 MG (TRANSDERM-SCOP) PATCH TD SCH (17:17)
[2019-09-18] MEDS: SCOPOLAMINE PATCH REMOVAL TP SCH (17:17)
--- NOTE | 2019-09-18 21:06 | NUR ---
Pt worked w therapy this AM, & shannon well. visited this afternoon. Noticed scant amt of bright red blood when cleaning up from inct bm. Pt, & report that pt has hemorrhoids, & that he has to use Preparation H Suppositories 1-2 x/s weekly. Notified Dr. Simon of this, & rec'd orders. ALso notified Dr. Flores of this when he was here this evening & made rounds w pt. Notified next shift of new order. Addendum: 09/18/19 at 210 by AVI DAN RN No N/V today.
--- NOTE | 2019-09-19 05:50 | PM&R Progress Note ---
Subjective HPI/CC On Admission Date Seen by Provider: Sep 19, 2019 Time Seen by Provider: 10:00 Subjective/Events-last exam 09/19/19: Pt sleeps most of the time Will discuss disposition, I doubt any recovery potential Overall needs probably a long-term for long-term care 09/18/19: Insomnia is an issue Worked with PT today but seems to take a lot of naps during the day which disrupts the nighttime sleeping No pain is reported 09/17/19: Pt sleeps most of the time No major changes No bloody stools Off of Lovenox, Coumadin and Aspirin Second GI bleed in the last few weeks 09/16/19: No bloody stools today Hgb stable 10.3 Is not strong enough to undergo C-scope prep Dr Flores saw him this morning Holding ASA Lovenox Coumadin Had GI at [place] also Decreased cognition 09/15/19: Patient had been doing pretty well when I rounded No more nausea and vomiting like yesterday Tube feeding was restarted slowly I stopped the Clinimix since tube feedings were started N.p.o. 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 Flores general surgery was consulted and checked hemoglobin and hematocrit. 09/14/19: Had nausea and vomiting all last night Needs IV fluids gently so we'll start that today Urinary incontinence noted No fecal incontinence Holding tube feedings for right now Barium swallow today at 11:30 INR 1.4 will increase dose and provide Lovenox 09/13/19: Patient doing pretty well today Sleeping currently Therapy worked with him today Modified Barium Swallow scheduled Hemoglobin 9.6 Disoriented at times Bowels moved yesterday Conferred with RN Reviewed Therapy notes Checked Meds and Labs Review of Systems General: Fatigue, Malaise Neurological: Weakness Objective Exam Vital Signs Vital Signs Date Time Temp Pulse Resp B/P (MAP) Pulse Ox O2 Delivery O2 Flow Rate FiO2 09/19/19 18:41 39.2 93 16 130/50 (76) 99 Room Air Capillary Refill : Less Than 3 Seconds General Appearance: No Apparent Distress, WD/WN, Chronically ill HEENT: PERRL/EOMI, Normal ENT Inspection, Pharynx Normal Neck: Full Range of Motion, Normal Inspection, Non Tender, Supple, Carotid Bruit Respiratory: Chest Non Tender, Lungs Clear, Normal Breath Sounds, No Accessory Muscle Use, No Respiratory Distress Cardiovascular: No Edema, No Gallop, No JVD, No Murmur, Normal Peripheral Pulses, Irregularly Irregular Gastrointestinal: Normal Bowel Sounds, No Organomegaly, No Pulsatile Mass, Non Tender, Soft Back: Normal Inspection, No CVA Tenderness, No Vertebral Tenderness Extremity: Normal Capillary Refill, Normal Inspection, Normal Range of Motion, Non Tender, No Calf Tenderness, Pedal Edema Neurologic/Psychiatric: Alert, Oriented x3, Normal Mood/Affect, product consultant II-XII Norm as Tested, Aphasia, Facial Droop (left), Motor Weakness (left sided) Skin: Normal Color, Warm/Dry Lymphatic: No Adenopathy Results/Procedures Lab Patient resulted labs reviewed. FIM Transfers Therapy Code Descriptions/Definitions Functional [place] Measure: 0=Not Assessed/NA 4=Minimal Assistance 1=Total Assistance 5=Supervision or Setup 2=Maximal Assistance 6=Modified [place] 3=Moderate Assistance 7=Complete IndependenceSCALE: Activities may be completed with or without assistive devices. 8-Qxjsndfbhk-utetxxm completes the activity by him/herself with no assistance from a helper. 5-Set-up or Clean-up Assistance-helper sets up or cleans up; patient completes activity. [place] assists only prior to or following the activity. 4-Supervision or Touching Assistance-helper provides verbal cues and/or touching/steadying and/or contact guard assistance as patient completes activity. Assistance may be provided throughout the activity or intermittently. 3-Partial/Moderate Assistance-helper does LESS THAN HALF the effort. [place] lifts, holds or supports trunk or limbs, but provides less than half the effort. 2-Substantial/Maximal Assistance-helper does MORE THAN HALF the effort. [place] lifts or holds trunk or limbs and provides more than half the effort. 5-Cepqcbvtu-chslhr does ALL the effort. Patient does none of the effort to complete the activity. Or, the assistance of 2 or more helpers is required for the patient to complete the activity. If activity was not attempted, code reason: 7-Patient Refused. 9-Not Applicable-not attempted and the patient did not perform the activity before the current illness, exacerbation or injury. 10-Not Attempted due to Environmental Limitations-(lack of equipment, weather restraints, etc.). 88-Not Attempted due to Medical Conditions or Safety Concerns. Roll Left to Right (QC): 3 Sit to Lying (QC): 1 Sit to Stand (QC): 1 Chair/Lkt-fn-Hxbnz Xfer(QC): 1 Car Transfer (QC): 1 Gait Training Does the Patient Walk?: No and Walking Goal NOT indicated Walk 10 feet (QC): 88 Walk 50 ft with 2 Turns(QC): 88 Walk 150 ft (QC): 88 Walking 10ft/uneven surface-QC: 88 Wheelchair Training Does the Pt Use a Wheelchair?: Yes Distance: 150'x2 Wheel 50 ft with 2 turns (QC): 2 (mod assist to guide chair.) Wheel 150 ft (QC): 1 Type of Wheelchair: Manual Stair Training 1 Step (curb) (QC): 88 4 Steps (QC): 88 12 Steps (QC): 88 Balance Picking up an Object (QC): 88 ADL-Treatment Eating (QC): 88 (See DIRECTOR EXPORT notes) Oral Hygiene (QC): 7 (denies oral sponge at this time) Bathing Location: Chest, Abdomen, Perineal Area Shower/Bathe Self (QC): 1 Upper Body Dressing (QC): 2 (Max A) Lower Body Dressing (QC): 1 On/Off Footwear (QC): 2 Toileting Hygiene (QC): 1 Toilet Transfer (QC): 88 (Using bedpan) Assessment/Plan Assessment and Plan Assess & Plan/Chief Complaint Assessment: CVA Left sided weakness Left sided neglect PEG tube status Dysphagia Aspiration hx with PNA CAD AF Coumadin treatment GIB 09/14/19 Plan: IRF protocol ST to work on dysphagia TF to be maintained Coumadin treatment Cardiology evaluation 09/13/19: Continue aggressive treatment Barium Swallow Monitor Hemoglobin 09/14/19: Give gentle IV fluids Increase INR with Coumadin with Lovenox bridge Barium swallow today 09/15/2019: Monitor GI bleed Hold Coumadin and Lovenox and aspirin Hold tube feedings Consult general surgery for endoscopies Maintain n.p.o. status due to aspiration risk 09/16/19: Monitor Hgb NPO Aspiration risk TF gently 09/17/19: No major changes Sleeping most of the time Stay off blood thinners due to second GI bleed 09/18/19: Insomnia treatment Continue aggressive physical therapy 09/19/19: Disposition will be discussed in team conference Tube feedings are tolerated well No more bloody stools Scrotum seems to be bleeding at times (1) CVA (cerebral vascular accident) (2) Atrial fibrillation with normal ventricular rate (3) CAD (coronary artery disease) (4) Stented coronary artery (5) Dysphagia (6) Left-sided weakness (7) At risk for aspiration (8) PEG (percutaneous endoscopic gastrostomy) status (9) On warfarin therapy (10) Left-sided neglect (11) Facial droop KENZIE MORENO DO Sep 19, 2019 05:50
[2019-09-19 06:00] VITALS: BP 126/80
[2019-09-19] MEDS: SUCRALFATE 1 GM (CARAFATE) TAB PO SCH ×3 (06:45→17:34)
[2019-09-19] MEDS: LEVOTHYROXINE 75 MCG (LEVOTHROID) TABLET PO SCH (06:48)
[2019-09-19] MEDS: DOCUSATE SODIUM 100 MG (COLACE) CAP PO SCH ×2 (08:01→22:29)
[2019-09-19] MEDS: polyethylene glycoL POWDER 17 GM (MIRALAX) PACK PO SCH ×2 (08:01→22:29)
[2019-09-19] MEDS: SENNA W/DOCUSATE (SENOKOT S) TABLET PO SCH ×2 (08:02→22:30)
--- NOTE | 2019-09-19 08:51 | Physical Therapy Daily Note ---
PT Daily Note-Current Subjective Pt in bed supine, acknowledges this CRUSHING MILL OPERATOR and nods head. Expresses discomfort with cleaning and rolling at times. Co Rx OT PT Pain Comment: pt whinces with cleaning of scrotum and jean-pierre area which are stg 1-2 , BM cl Mental Status Patient Orientation: Person, Place, Eyes Open, Situation Transfers SCALE: Activities may be completed with or without assistive devices. 0-Rtjqshswdq-rmdghyg completes the activity by him/herself with no assistance from a helper. 5-Set-up or Clean-up Assistance-helper sets up or cleans up; patient completes activity. [place] assists only prior to or following the activity. 4-Supervision or Touching Assistance-helper provides verbal cues and/or touching/steadying and/or contact guard assistance as patient completes activity. Assistance may be provided throughout the activity or intermittently. 3-Partial/Moderate Assistance-helper does LESS THAN HALF the effort. [place] lifts, holds or supports trunk or limbs, but provides less than half the effort. 2-Substantial/Maximal Assistance-helper does MORE THAN HALF the effort. [place] lifts or holds trunk or limbs and provides more than half the effort. 3-Cocbgmlty-abhsnw does ALL the effort. Patient does none of the effort to comp lete the activity. Or, the assistance of 2 or more helpers is required for the patient to complete the activity. If activity was not attempted, code reason: 7-Patient Refused. 9-Not Applicable-not attempted and the patient did not perform the activity before the current illness, exacerbation or injury. 10-Not Attempted due to Environmental Limitations-(lack of equipment, weather restraints, etc.). 88-Not Attempted due to Medical Conditions or Safety Concerns. Roll Left & Right (QC): 3 Sit to Lying (QC): 1 Chair/Qzn-jz-Kobum Xfer(QC): 1 Sarah TRF for up in recliner, pt. does respond when asked to roll left , reaching for bed rail and appropriately pulling, requires min assist to complete. max assist to right side Exercises Supine Ex: Rolling, Heel Slides, Scooting, Straight leg raise, Hip abd/add Supine Reps: 8 Seated Therapy Exercises: Ankle pumps, Long arc quads, Hip flexion Seated Reps: 15 Treatments PT OT co Rx for coordinated U&L bed mobility training as well as positioning and attempts to break up tone U&L extremities with PNF patterns . co Rx for these movements when appropriate during bathing , rolling, extremity movement patterns for ADL of bed bath. Pt. up in recliner after bth and dressing with cushioning and positioning for skin and safety completed. Left LE PNF patterns and HC stretching etc. Pt. continues dependent for all, no volitional LLE movement has been noted, conts in neglect with tone Assessment Current Status: Fair Progress conts dependent , see under Rx section PT Short Term Goals Short Term Goals Time Frame: Sep 19, 2019 Roll Left & Right: 2 Sit to lyin Lying to sitting on side of be: 2 Sit to stand: 2 Chair/pwj-ee-rpofp transfer: 2 Wheel 50ft w/2 turns: 2 Wheel 150 feet: 2 PT Technical Assistant Goals Group Home Goals PT Technical Assistant Goals Time Frame: Oct 03, 2019 Roll Left & Right (QC): 3 Sit to Lying (QC): 3 Lying-Sitting on Side/Bed(QC): 3 Sit to Stand (QC): 3 Chair/Otz-eh-Svjbf Xfer(QC): 3 Toilet Transfer (QC): 3 Car Transfer (QC): 3 Does the Patient Walk: No and Walking Goal NOT indicated Walk 10 feet (QC): 88 Walk 50ft with 2 Turns (QC): 88 Walk 150 ft (QC): 88 Walking 10ft on Uneven Surface: 88 1 Step (curb) (QC): 88 4 Steps (QC): 88 12 Steps (QC): 88 Picking up an Object (QC): 88 Wheel 50 feet with 2 turns (QC: 3 Wheel 150 feet: 3 PT Plan Treatment/Plan Treatment Plan: Continue Plan of Care Treatment Plan: Bed Mobility, Education, Functional Activity Aliyah, Functional Strength, Group Therapy, Gait, Safety, Therapeutic Exercise, Transfers Treatment Duration: Oct 03, 2019 Frequency: At least 5 of 7 days/Wk (IRF) Estimated Hrs Per Day: 1.5 hours per day Patient and/or Family Agrees t: Yes Safety Risks/Education Patient Education: Transfer Techniques, Correct Positioning, Safety Issues Teaching Recipient: Patient Teaching Methods: Demonstration, Discussion Response to Teaching: Reinforcement Needed Time/GCodes Time In: 800 Time Out: 845 Total Billed Treatment Time: 45 Total Billed Treatment 1,FA45m,EX15m co Rx 45m LAUREN ESCOBAR CRUSHING MILL OPERATOR Sep 19, 2019 08:51
[2019-09-19] MEDS: meTOprolol TARTRATE 25 MG (LOPRESSOR) TABLET PO SCH ×2 (08:53→17:34)
[2019-09-19] MEDS: PANTOPRAZOLE 2 MG/ML LIQUID 200 ML (PROTONIX) PEG SCH ×6 (08:53→21:29)
[2019-09-19] MEDS: LACTOBACILLUS ACIDOPHILUS (PROBIOTIC) CAPSULE PEG SCH ×2 (08:53→21:29)
--- NOTE | 2019-09-19 09:02 | Occupational Ther Daily Note ---
OT Current Status-Daily Note Subjective Pt sleeping in bed, woke easily to name. Pt agrees to therapy. Pt has difficulty making wants and needs known, unable to assess cognition and pain. Mental Status/Objective Patient Orientation: Person, Unable to Assess Attachments: PEG Tube ADL-Treatment Therapy Code Descriptions/Definitions Functional [place] Measure: 0=Not Assessed/NA 4=Minimal Assistance 1=Total Assistance 5=Supervision or Setup 2=Maximal Assistance 6=Modified [place] 3=Moderate Assistance 7=Complete IndependenceSCALE: Activities may be completed with or without assistive devices. 4-Irktopdwfo-qsambyq completes the activity by him/herself with no assistance from a helper. 5-Set-up or Clean-up Assistance-helper sets up or cleans up; patient completes activity. [place] assists only prior to or following the activity. 4-Supervision or Touching Assistance-helper provides verbal cues and/or touching/steadying and/or contact guard assistance as patient completes activity. Assistance may be provided throughout the activity or intermittently. 3-Partial/Moderate Assistance-helper does LESS THAN HALF the effort. [place] lifts, holds or supports trunk or limbs, but provides less than half the effort. 2-Substantial/Maximal Assistance-helper does MORE THAN HALF the effort. [place] lifts or holds trunk or limbs and provides more than half the effort. 8-Vppuqrvlz-muesuq does ALL the effort. Patient does none of the effort to complete the activity. Or, the assistance of 2 or more helpers is required for the patient to complete the activity. If activity was not attempted, code reason: 7-Patient Refused. 9-Not Applicable-not attempted and the patient did not perform the activity before the current illness, exacerbation or injury. 10-Not Attempted due to Environmental Limitations-(lack of equipment, weather restraints, etc.). 88-Not Attempted due to Medical Conditions or Safety Concerns. Oral Hygiene (QC): 4 (Set up and supervision) Shower/Bathe Self (QC): 1 Upper Body Dressing (QC): 1 (Assist x2 to lean forward and don/doff shirt.) Lower Body Dressing (QC): 1 On/Off Footwear: 2 Toileting Hygiene (QC): 1 Other Treatment 1st treatment ([id number])-OT/PT co-treat ([id number]), skills of 2 clinicians are required to complete skilled instruction and physical management due to neur omuscular retraining for mobility, transfers and ADLs. PT worked mobility, transfers and B LE movement. OT working on ADLs, mobility and B UE movement. No intentional movement noted in L UE, tone noted. Pt agrees to bed bath. Pt was able to wash chest, face and L UE with verbal cues and supervision. Max A to bathe rest of body Pt dependent for lower body dressing. Sarah lift to transfer from bed to recliner. Waffle cushion placed in chair for skin protection. After therapy, pt sitting in recliner with call light/phone in reach. All needs met in room. 2nd treatment (10:30-10:50)-Transferred pt with Sarah lift back to bed. Pt incontinent of bladder, assist x2 to change brief and doff lower body clothing. Assist x2 to cleanse after incontinence. Pt positioned in bed toward R side to relieve pressure on buttocks. After session, pt lying in bed with call light/phone in reach. All needs met in room. OT Short Term Goals Short Term Goals Time Frame: Sep 19, 2019 Shower/bathe self: 2 Upper body dressin Lower body dressin OT Half-Way Goals Multifocal Button Generator Goals Time Frame: Oct 03, 2019 Eating (QC): 4 Oral Hygiene (QC): 4 Toileting Hygiene (QC): 3 Shower/Bathe Self (QC): 3 Upper Body Dressing (QC): 3 Lower Body Dressing (QC): 2 On/Off Footwear (QC): 2 Additional Goals: 1-Demonstrate ADL Tasks, 2-Verbalize Understanding, 3- ImproveStrength/Aliyah 1=Demonstrate adherence to instructed precautions during ADL tasks. 2=Patient will verbalize/demonstrate understanding of assistive devices/modifications for ADL. 3=Patient will improve strength/tolerance for activity to enable patient to perform ADL's. OT Education/Plan Problem List/Assessment Assessment: Decreased Activ Tolerance, Decreased Safety Aware, Decreased UE Strength, Dependent Transfers, Impaired Bed Mobility, Impaired Cognition, Impaired Coordination, Impaired Funct Balance, Impaired I ADL's, Impaired Self- Care Skills, Restricted Funct UE ROM, Visual-Perceptual Deficit (L neglect) Discharge Recommendations Plan/Recommendations: Continue POC Treatment Plan/Plan of Care Patient would benefit from OT for education, treatment and training to promote independence in ADL's, mobility, safety and/or upper extremity function for ADL's. Plan of Care: ADL Retraining, Caregiver Training, Functional Mobility, Group Exercise/Act as Ind, Orthotic Fitting/Training, UE Funct Exercise/Act, UE Neuromus Re-Ed/Coord, Visual/Perceptual Retrain, W/C Management Training Treatment Duration: Oct 03, 2019 Frequency: At least 5 of 7 days/Wk (IRF) Estimated Hrs Per Day: 1.5 hours per day Agreement: Yes Rehab Potential: Poor Time/GCodes Start Time: 08:00 ([id number]) Stop Time: 10:50 ([id number]) Total Time Billed (hr/min): 80 Billed Treatment Time 1 visit-ADL 3 (50 min) NM 1 (10 min) co-treat with PT 45 min ([id number]) individual 15 min ([id number]), 1 visit-ADL 1 (20 min) CALLIE LARIOS Sep 19, 2019 09:02
--- NOTE | 2019-09-19 11:20 | NUR ---
Pastoral care visit.
--- NOTE | 2019-09-19 11:46 | Speech Therapy Daily Note ---
Speech Daily Progress Note Subjective Date Seen by Provider: Sep 19, 2019 Time Seen by Provider: 00:30 Patient was sitting up in his chair, dozing off frequently. Objective The patient will complete memory tasks related to his daily needs at 60% or greater with maximum cues. Assessment Assessment Current Status: Fair Progress Treatment Plan Continue Plan of Care Speech Short Term Goals Short Term Goals Short Term Goals 1) Patient will complete expressive language exercises at 90% or greater with minimal cues. 2) Patient will complete OME x10 with 90% or greater with minimal cues. 3) Patient will complete oral trials with 90% or greater without s/s of aspiration. Speech Correction Goals Sql Etl Developer Goals Patient will improve speech production for effective communication of his wants/needs. Patient will maintain adequate nutrition/hydration via PEG and/or oral intake. Speech-Plan Patient/Family Goals Patient/Family Goals: Patient plans on returning to his home, however due to his level of function this may not be the safest for him. Treatment Plan Speech Therapy Treatment Plan: Continue Plan of Care Treatment Duration: Sep 28, 2019 Frequency: 4 times per week (Patient will receive skilled ST 4-5x per week) Estimated Hrs Per Day: .5 hour per day Rehab Potential: Poor Barriers to Learning: Patient's decreased level of function due to CVA, age Safety Risks/Education Teaching Recipient: Patient Teaching Methods: Discussion Response to Teaching: Verbalize Understanding, Reinforcement Needed Education Topics Provided: Continued safety within his room Time Speech Therapy Time In: 10:00 Speech Therapy Time Out: 10:30 Total Billed Time: 30 Billed Treatment Time 1, EARNEST Hu Sep 19, 2019 11:46
--- NOTE | 2019-09-19 13:56 | Physical Therapy Daily Note ---
PT Daily Note-Current Subjective Pt. shakes head yes when asked if he is sleepy. Pain Location: No Pain Reported Transfers SCALE: Activities may be completed with or without assistive devices. 0-Igdgxsmwkw-esjpmya completes the activity by him/herself with no assistance from a helper. 5-Set-up or Clean-up Assistance-helper sets up or cleans up; patient completes activity. [place] assists only prior to or following the activity. 4-Supervision or Touching Assistance-helper provides verbal cues and/or touching/steadying and/or contact guard assistance as patient completes activity. Assistance may be provided throughout the activity or intermittently. 3-Partial/Moderate Assistance-helper does LESS THAN HALF the effort. [place] lifts, holds or supports trunk or limbs, but provides less than half the effort. 2-Substantial/Maximal Assistance-helper does MORE THAN HALF the effort. [place] lifts or holds trunk or limbs and provides more than half the effort. 6-Zdabjlwly-dxlbrd does ALL the effort. Patient does none of the effort to complete the activity. Or, the assistance of 2 or more helpers is required for the patient to complete the activity. If activity was not attempted, code reason: 7-Patient Refused. 9-Not Applicable-not attempted and the patient did not perform the activity before the current illness, exacerbation or injury. 10-Not Attempted due to Environmental Limitations-(lack of equipment, weather restraints, etc.). 88-Not Attempted due to Medical Conditions or Safety Concerns. Exercises Supine Ex: Ankle pumps, Rolling, Heel Slides, Straight leg raise, Hip abd/add Supine Reps: 12 (PROM left, PAAROM right) Assessment Current Status: Fair Progress PT Short Term Goals Short Term Goals Time Frame: Sep 19, 2019 Roll Left & Right: 2 Sit to lyin Lying to sitting on side of be: 2 Sit to stand: 2 Chair/jyo-ve-bflzm transfer: 2 Wheel 50ft w/2 turns: 2 Wheel 150 feet: 2 PT Furnace Process Supervisor Goals Residential Goals PT Residential Goals Time Frame: Oct 03, 2019 Roll Left & Right (QC): 3 Sit to Lying (QC): 3 Lying-Sitting on Side/Bed(QC): 3 Sit to Stand (QC): 3 Chair/Lcz-zs-Zuvtq Xfer(QC): 3 Toilet Transfer (QC): 3 Car Transfer (QC): 3 Does the Patient Walk: No and Walking Goal NOT indicated Walk 10 feet (QC): 88 Walk 50ft with 2 Turns (QC): 88 Walk 150 ft (QC): 88 Walking 10ft on Uneven Surface: 88 1 Step (curb) (QC): 88 4 Steps (QC): 88 12 Steps (QC): 88 Picking up an Object (QC): 88 Wheel 50 feet with 2 turns (QC: 3 Wheel 150 feet: 3 PT Plan Treatment/Plan Treatment Plan: Continue Plan of Care Treatment Plan: Bed Mobility, Education, Functional Activity Aliyah, Functional Strength, Group Therapy, Gait, Safety, Therapeutic Exercise, Transfers Treatment Duration: Oct 03, 2019 Frequency: At least 5 of 7 days/Wk (IRF) Estimated Hrs Per Day: 1.5 hours per day Patient and/or Family Agrees t: Yes Time/GCodes Time In: 1320 Time Out: 1335 Total Billed Treatment Time: 15 Total Billed Treatment 1,EX15m LAUREN ESCOBAR PULLER OVER Sep 19, 2019 13:56
--- NOTE | 2019-09-19 15:12 | Physical Therapy Daily Note ---
PT Daily Note-Current Subjective Pt. shakes head only Transfers SCALE: Activities may be completed with or without assistive devices. 5-Izfekbhyhy-ztfuqmh completes the activity by him/herself with no assistance from a helper. 5-Set-up or Clean-up Assistance-helper sets up or cleans up; patient completes activity. [place] assists only prior to or following the activity. 4-Supervision or Touching Assistance-helper provides verbal cues and/or touching/steadying and/or contact guard assistance as patient completes activity. Assistance may be provided throughout the activity or intermittently. 3-Partial/Moderate Assistance-helper does LESS THAN HALF the effort. [place] lifts, holds or supports trunk or limbs, but provides less than half the effort. 2-Substantial/Maximal Assistance-helper does MORE THAN HALF the effort. [place] lifts or holds trunk or limbs and provides more than half the effort. 1-Hvrikcqoc-uoinpd does ALL the effort. Patient does none of the effort to complete the activity. Or, the assistance of 2 or more helpers is required for the patient to complete the activity. If activity was not attempted, code reason: 7-Patient Refused. 9-Not Applicable-not attempted and the patient did not perform the activity before the current illness, exacerbation or injury. 10-Not Attempted due to Environmental Limitations-(lack of equipment, weather restraints, etc.). 88-Not Attempted due to Medical Conditions or Safety Concerns. Exercises Supine Ex: Rolling, Heel Slides, Straight leg raise, Hip abd/add Supine Reps: 10 Treatments pt. seen for rolling, up in bed with max assist , LLE PROM PNF patterns and repositioning to side with pillows and bolsters Assessment Current Status: Fair Progress PT Short Term Goals Short Term Goals Time Frame: Sep 19, 2019 Roll Left & Right: 2 Sit to lyin Lying to sitting on side of be: 2 Sit to stand: 2 Chair/ohw-vu-hvfnw transfer: 2 Wheel 50ft w/2 turns: 2 Wheel 150 feet: 2 PT Group Home Goals Dolphin Researcher Goals PT Group Home Goals Time Frame: Oct 03, 2019 Roll Left & Right (QC): 3 Sit to Lying (QC): 3 Lying-Sitting on Side/Bed(QC): 3 Sit to Stand (QC): 3 Chair/Cel-hd-Oxzte Xfer(QC): 3 Toilet Transfer (QC): 3 Car Transfer (QC): 3 Does the Patient Walk: No and Walking Goal NOT indicated Walk 10 feet (QC): 88 Walk 50ft with 2 Turns (QC): 88 Walk 150 ft (QC): 88 Walking 10ft on Uneven Surface: 88 1 Step (curb) (QC): 88 4 Steps (QC): 88 12 Steps (QC): 88 Picking up an Object (QC): 88 Wheel 50 feet with 2 turns (QC: 3 Wheel 150 feet: 3 PT Plan Treatment/Plan Treatment Plan: Continue Plan of Care Treatment Plan: Bed Mobility, Education, Functional Activity Aliyah, Functional Strength, Group Therapy, Gait, Safety, Therapeutic Exercise, Transfers Treatment Duration: Oct 03, 2019 Frequency: At least 5 of 7 days/Wk (IRF) Estimated Hrs Per Day: 1.5 hours per day Patient and/or Family Agrees t: Yes Time/GCodes Time In: 1505 Time Out: 1520 Total Billed Treatment Time: 15 Total Billed Treatment 1,EX15m LAUREN ESCOBAR [employer] VICE PRESIDENT [employer] SALES Sep 19, 2019 15:12
--- NOTE | 2019-09-19 17:42 | Cardiology Progress Note ---
Cardiology SOAP Progress Note Subjective: No cardiac complaints. Objective: I&O/Vital Signs 09/19/19 09/19/19 06:00 09:00 Temp 36.3 Pulse 84 Resp 20 B/P (MAP) 126/80 (95) Pulse Ox 96 O2 Delivery Room Air Room Air 09/19/19 00:00 Intake Total 1460 ml Balance 1460 ml Constitutional: well-developed, well-nourished, other (Drowsy, awakens easily, oriented to self only) Respiratory: No accessory muscle use, No respiratory distress; chest expansion is symmetric, chest is bilaterally symmetric, lungs clear to auscultation Cardiovascular: regular rate-rhythm (EKG shows SR with PVC's); No JVD; S1 and S2, systolic murmur Gastrointestional: soft, audible bowel sounds, other (PEG tube in place) Extremities: no lower extremity edema bilateral Neurologic/Psychiatric: other (moves right extremities; does not move left upper or lower extremity) Skin: No rash on exposed areas, No ulcerations on exposed areas A/P: Assessment/Dx: Hematochezia on 09/15/19 (warfarin and ASA held) being managed by Dr Simon and Dr Flores 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 Dias at [facility] Records from [facility] report h/o CVA x 3 (2008, 2013 x2) H/O PE in 2016 tx at [facility] Dysphagia - PEG tube in place HTN CAD - CABG x 4 vessel in February 2016 at [facility] by Dr. Regan - quadruple bypass with VILLATORO to LAD, saphenous vein graft to OM 1, saphenous vein T graft to D1, saphenous vein graft to LPDA. 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 Has been on warfarin H/O hematology w/u at [facility] which did not show hypercoagulable state H/O acute gangrenous cholecystitis for which he underwent cholecystectomy in July 2019 at [place], [place] Documented h/o prostate cancer Plan: Plan: Treat GI bleed so that anticoag/antiplatelet therapy can be resumed Monitor labs Thank you for your consultation. Please call me if you have any questions. Cresencio Sweet MD, FACP, FACC, FSCAI, FHRS, CCDS Interventional Cardiology Cardiac Electrophysiology Vascular Medicine and Endovascular Interventions Miguel SWEET MD Sep 19, 2019 17:42
[2019-09-19 18:41] VITALS: BP 130/50
[2019-09-19] MEDS: ALPRAZolam 0.25 MG (XANAX) TAB PO PRN (21:29)
[2019-09-20] MEDS: SUCRALFATE 1 GM (CARAFATE) TAB PO SCH ×5 (00:42→23:17)
[2019-09-20 04:50] LABS: MEAN PLATELET VOLUME 10.3 FL (7.4-10.4); RED CELL DISTRIBUTION WIDTH 16.1 % (10.0-14.5)
[2019-09-20 06:00] VITALS: BP 115/71
[2019-09-20] MEDS: LEVOTHYROXINE 75 MCG (LEVOTHROID) TABLET PO SCH (06:12)
--- NOTE | 2019-09-20 06:47 | PM&R Progress Note ---
Subjective HPI/CC On Admission Date Seen by Provider: Sep 20, 2019 Time Seen by Provider: 10:00 Subjective/Events-last exam 09/20/19: Pt sleeping most of the time Participating in therapy Tube feedings of one can every three hours is working a lot better for him, he is tolerating it better No more bloody stools Cardiology restarted Aspirin but Coumadin will continue to be held because he has had two GI bleeds in the past two weeks and cant withstand a colonoscopy prep Very complex case 09/19/19: Pt sleeps most of the time Will discuss disposition, I doubt any recovery potential Overall needs probably a halfway for long-term care 09/18/19: Insomnia is an issue Worked with PT today but seems to take a lot of naps during the day which disrupts the nighttime sleeping No pain is reported 09/17/19: Pt sleeps most of the time No major changes No bloody stools Off of Lovenox, Coumadin and Aspirin Second GI bleed in the last few weeks 09/16/19: No bloody stools today Hgb stable 10.3 Is not strong enough to undergo C-scope prep Dr Flores saw him this morning Holding ASA Lovenox Coumadin Had GI at [facility] also Decreased cognition 09/15/19: Patient had been doing pretty well when I rounded No more nausea and vomiting like yesterday Tube feeding was restarted slowly I stopped the Clinimix since tube feedings were started N.p.o. 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 Flores general surgery was consulted and checked hemoglobin and hematocrit. 09/14/19: Had nausea and vomiting all last night Needs IV fluids gently so we'll start that today Urinary incontinence noted No fecal incontinence Holding tube feedings for right now Barium swallow today at 11:30 INR 1.4 will increase dose and provide Lovenox 09/13/19: Patient doing pretty well today Sleeping currently Therapy worked with him today Modified Barium Swallow scheduled Hemoglobin 9.6 Disoriented at times Bowels moved yesterday Conferred with RN Reviewed Therapy notes Checked Meds and Labs Review of Systems General: Fatigue, Malaise Neurological: Weakness Objective Exam Vital Signs Vital Signs Date Time Temp Pulse Resp B/P (MAP) Pulse Ox O2 Delivery O2 Flow Rate FiO2 09/20/19 18:00 36.4 77 16 123/58 (79) 96 Room Air Capillary Refill : Less Than 3 Seconds General Appearance: No Apparent Distress, WD/WN, Chronically ill HEENT: PERRL/EOMI, Normal ENT Inspection, Pharynx Normal Neck: Full Range of Motion, Normal Inspection, Non Tender, Supple, Carotid Bruit Respiratory: Chest Non Tender, Lungs Clear, Normal Breath Sounds, No Accessory Muscle Use, No Respiratory Distress Cardiovascular: No Edema, No Gallop, No JVD, No Murmur, Normal Peripheral Pulses, Irregularly Irregular Gastrointestinal: Normal Bowel Sounds, No Organomegaly, No Pulsatile Mass, Non Tender, Soft Back: Normal Inspection, No CVA Tenderness, No Vertebral Tenderness Extremity: Normal Capillary Refill, Normal Inspection, Normal Range of Motion, Non Tender, No Calf Tenderness, Pedal Edema Neurologic/Psychiatric: Alert, Oriented x3, Normal Mood/Affect, bran mixer II-XII Norm as Tested, Aphasia, Facial Droop (left), Motor Weakness (left sided) Skin: Normal Color, Warm/Dry Lymphatic: No Adenopathy Results/Procedures Lab Laboratory Tests 09/20/19 04:34 Patient resulted labs reviewed. FIM Transfers Therapy Code Descriptions/Definitions Functional [place] Measure: 0=Not Assessed/NA 4=Minimal Assistance 1=Total Assistance 5=Supervision or Setup 2=Maximal Assistance 6=Modified [place] 3=Moderate Assistance 7=Complete IndependenceSCALE: Activities may be completed with or without assistive devices. 1-Jsqehqrvpi-jabbepz completes the activity by him/herself with no assistance from a helper. 5-Set-up or Clean-up Assistance-helper sets up or cleans up; patient completes activity. [place] assists only prior to or following the activity. 4-Supervision or Touching Assistance-helper provides verbal cues and/or touc [place]/steadying and/or contact guard assistance as patient completes activity. Assistance may be provided throughout the activity or intermittently. 3-Partial/Moderate Assistance-helper does LESS THAN HALF the effort. [place] lifts, holds or supports trunk or limbs, but provides less than half the effort. 2-Substantial/Maximal Assistance-helper does MORE THAN HALF the effort. [place] lifts or holds trunk or limbs and provides more than half the effort. 4-Qgyfkenba-idwgev does ALL the effort. Patient does none of the effort to complete the activity. Or, the assistance of 2 or more helpers is required for the patient to complete the activity. If activity was not attempted, code reason: 7-Patient Refused. 9-Not Applicable-not attempted and the patient did not perform the activity be fore the current illness, exacerbation or injury. 10-Not Attempted due to Environmental Limitations-(lack of equipment, weather restraints, etc.). 88-Not Attempted due to Medical Conditions or Safety Concerns. Roll Left to Right (QC): 3 Sit to Lying (QC): 1 Sit to Stand (QC): 1 Chair/Yho-vl-Xuzlm Xfer(QC): 1 Car Transfer (QC): 1 Gait Training Does the Patient Walk?: No and Walking Goal NOT indicated Walk 10 feet (QC): 88 Walk 50 ft with 2 Turns(QC): 88 Walk 150 ft (QC): 88 Walking 10ft/uneven surface-QC: 88 Wheelchair Training Does the Pt Use a Wheelchair?: Yes Distance: 150'x2 Wheel 50 ft with 2 turns (QC): 2 (mod assist to guide chair.) Wheel 150 ft (QC): 1 Type of Wheelchair: Manual Stair Training 1 Step (curb) (QC): 88 4 Steps (QC): 88 12 Steps (QC): 88 Balance Picking up an Object (QC): 88 ADL-Treatment Eating (QC): 88 (See COLORED LEATHER SETTER notes) Oral Hygiene (QC): 4 (Set up and supervision) Bathing Location: Chest, Abdomen, Perineal Area Shower/Bathe Self (QC): 1 Upper Body Dressing (QC): 1 (Assist x2 to lean forward and don/doff shirt.) Lower Body Dressing (QC): 1 On/Off Footwear (QC): 2 Toileting Hygiene (QC): 1 Toilet Transfer (QC): 88 (Using bedpan) Assessment/Plan Assessment and Plan Assess & Plan/Chief Complaint Assessment: CVA Left sided weakness Left sided neglect PEG tube status Dysphagia Aspiration hx with PNA CAD AF Coumadin treatment GIB 09/14/19 Plan: IRF protocol ST to work on dysphagia TF to be maintained Coumadin treatment Cardiology evaluation 09/13/19: Continue aggressive treatment Barium Swallow Monitor Hemoglobin 09/14/19: Give gentle IV fluids Increase INR with Coumadin with Lovenox bridge Barium swallow today 09/15/2019: Monitor GI bleed Hold Coumadin and Lovenox and aspirin Hold tube feedings Consult general surgery for endoscopies Maintain n.p.o. status due to aspiration risk 09/16/19: Monitor Hgb NPO Aspiration risk TF gently 09/17/19: No major changes Sleeping most of the time Stay off blood thinners due to second GI bleed 09/18/19: Insomnia treatment Continue aggressive physical therapy 09/19/19: Disposition will be discussed in team conference Tube feedings are tolerated well No more bloody stools Scrotum seems to be bleeding at times 09/19/19: Continue tube feedings of 1 can every 3 hours Sleeps most of the time No more bloody stools Aspirin was restarted Two GI bleeds in less than 2 weeks precludes restarting Coumadin (1) CVA (cerebral vascular accident) (2) Atrial fibrillation with normal ventricular rate (3) CAD (coronary artery disease) (4) Stented coronary artery (5) Dysphagia (6) Left-sided weakness (7) At risk for aspiration (8) PEG (percutaneous endoscopic gastrostomy) status (9) On warfarin therapy (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
--- NOTE | 2019-09-20 09:00 | Physical Therapy Daily Note ---
PT Daily Note-Current Subjective Patient in bed pre tx, agrees to PT, no complaints of pain, will be co-treating with OT due to poor patient mobility, strength, endurance, sitting and standing balance, the need to coordinate UE and LE during activity, left hemiparesis, pushers syndrome. Appearance Patient in recliner post tx with OT to finish with UE ROM. Mental Status Patient Orientation: Person, Unable to Assess, Non-Verbal/Aphasic Attachments: PEG Tube Transfers SCALE: Activities may be completed with or without assistive devices. 5-Hvpwwjjeya-yipfqlj completes the activity by him/herself with no assistance from a helper. 5-Set-up or Clean-up Assistance-helper sets up or cleans up; patient completes activity. [place] assists only prior to or following the activity. 4-Supervision or Touching Assistance-helper provides verbal cues and/or touching/steadying and/or contact guard assistance as patient completes activity. Assistance may be provided throughout the activity or intermittently. 3-Partial/Moderate Assistance-helper does LESS THAN HALF the effort. [place] lifts, holds or supports trunk or limbs, but provides less than half the effort. 2-Substantial/Maximal Assistance-helper does MORE THAN HALF the effort. [place] lifts or holds trunk or limbs and provides more than half the effort. 0-Luheahsen-nyvodw does ALL the effort. Patient does none of the effort to complete the activity. Or, the assistance of 2 or more helpers is required for the patient to complete the activity. If activity was not attempted, code reason: 7-Patient Refused. 9-Not Applicable-not attempted and the patient did not perform the activity before the current illness, exacerbation or injury. 10-Not Attempted due to Environmental Limitations-(lack of equipment, weather restraints, etc.). 88-Not Attempted due to Medical Conditions or Safety Concerns. Roll Left & Right (QC): 2 Chair/Uyo-wb-Zxwri Xfer(QC): 1 Patient rolls from side to side with max assist to the left and min assist to the right for changing brief and dressing and getting sarah sling under him. Sarah to and taken to bathroom for some quick ADL's. WC training to therapy gym with max assist. Stand pivot transfer to therapy table with max assist, wor k on sitting balance and reaching for cones and limits of stability, stand pivot back to WC, WC training back to room, stand pivot transfer to recliner, will continue for a bit with OT. Treatments PT performs bed mobility, rolling, stand pivot transfers, sarah transfer, sitting balance, WC mobility, OT performs ADL's dressing, changing brief, UE positioning and safety during activity, assist with transfers and sitting balance Assessment Current Status: Fair Progress less pushing to the left side, fatigues quickly, needs frequent rest breaks PT Short Term Goals Short Term Goals Time Frame: Sep 19, 2019 Roll Left & Right: 2 Sit to lyin Lying to sitting on side of be: 2 Sit to stand: 2 Chair/fjs-kv-legoa transfer: 2 Wheel 50ft w/2 turns: 2 Wheel 150 feet: 2 PT Senior Living Goals Cripple Cutter Goals PT Senior Living Goals Time Frame: Oct 03, 2019 Roll Left & Right (QC): 3 Sit to Lying (QC): 3 Lying-Sitting on Side/Bed(QC): 3 Sit to Stand (QC): 3 Chair/Hcu-sc-Srfqs Xfer(QC): 3 Toilet Transfer (QC): 3 Car Transfer (QC): 3 Does the Patient Walk: No and Walking Goal NOT indicated Walk 10 feet (QC): 88 Walk 50ft with 2 Turns (QC): 88 Walk 150 ft (QC): 88 Walking 10ft on Uneven Surface: 88 1 Step (curb) (QC): 88 4 Steps (QC): 88 12 Steps (QC): 88 Picking up an Object (QC): 88 Wheel 50 feet with 2 turns (QC: 3 Wheel 150 feet: 3 PT Plan Problem List Problem List: Activity Tolerance, Functional Strength, Safety, Balance, Gait, T ransfer, Bed Mobility, ROM Treatment/Plan Treatment Plan: Continue Plan of Care Treatment Plan: Bed Mobility, Education, Functional Activity Aliyah, Functional Strength, Group Therapy, Gait, Safety, Therapeutic Exercise, Transfers Treatment Duration: Oct 03, 2019 Frequency: At least 5 of 7 days/Wk (IRF) Estimated Hrs Per Day: 1.5 hours per day Patient and/or Family Agrees t: Yes Safety Risks/Education Patient Education: Transfer Techniques, Correct Positioning, W/C Management, Safety Issues Teaching Recipient: Patient Teaching Methods: Demonstration, Discussion Response to Teaching: Reinforcement Needed Time/GCodes Time In: 0800 Time Out: 0900 Total Billed Treatment Time: 60 Total Billed Treatment 1 visit FA 60' co-treated with OT for 60' RUY MCGRATH PT Sep 20, 2019 09:00
[2019-09-20] MEDS: DOCUSATE SODIUM 100 MG (COLACE) CAP PO SCH ×2 (09:02→22:16)
[2019-09-20] MEDS: SENNA W/DOCUSATE (SENOKOT S) TABLET PO SCH ×2 (09:02→22:17)
[2019-09-20] MEDS: LACTOBACILLUS ACIDOPHILUS (PROBIOTIC) CAPSULE PEG SCH ×2 (09:02→21:26)
[2019-09-20] MEDS: meTOprolol TARTRATE 25 MG (LOPRESSOR) TABLET PO SCH ×2 (09:02→18:01)
[2019-09-20] MEDS: polyethylene glycoL POWDER 17 GM (MIRALAX) PACK PO SCH ×2 (09:03→22:16)
[2019-09-20] MEDS: PANTOPRAZOLE 2 MG/ML LIQUID 200 ML (PROTONIX) PEG SCH ×6 (09:04→21:26)
--- NOTE | 2019-09-20 09:25 | Occupational Ther Daily Note ---
OT Current Status-Daily Note Subjective Pt seen in bed, sleeping. Pt requires min cues for waking/ arising. Pt denies pain upon entry. OT/ PT co-treat this session due to pt's dependency on transfers, decreased attention and AROM. OT addresses ADL skills, balance, UE moveent and cervical range and attention while PT focuses on gross motor, balance, LE movement and w/c mob. Mental Status/Objective Attachments: PEG Tube ADL-Treatment Therapy Code Descriptions/Definitions Functional [place] Measure: 0=Not Assessed/NA 4=Minimal Assistance 1=Total Assistance 5=Supervision or Setup 2=Maximal Assistance 6=Modified [place] 3=Moderate Assistance 7=Complete IndependenceSCALE: Activities may be completed with or without assistive devices. 5-Ximielrktv-bfqcber completes the activity by him/herself with no assistance from a helper. 5-Set-up or Clean-up Assistance-helper sets up or cleans up; patient completes activity. [place] assists only prior to or following the activity. 4-Supervision or Touching Assistance-helper provides verbal cues and/or touching/steadying and/or contact guard assistance as patient completes activity. Assistance may be provided throughout the activity or intermittently. 3-Partial/Moderate Assistance-helper does LESS THAN HALF the effort. [place] lifts, holds or supports trunk or limbs, but provides less than half the effort. 2-Substantial/Maximal Assistance-helper does MORE THAN HALF the effort. [place] lifts or holds trunk or limbs and provides more than half the effort. 9-Kywfakxqi-cdhzpa does ALL the effort. Patient does none of the effort to complete the activity. Or, the assistance of 2 or more helpers is required for the patient to complete the activity. If activity was not attempted, code reason: 7-Patient Refused. 9-Not Applicable-not attempted and the patient did not perform the activity be fore the current illness, exacerbation or injury. 10-Not Attempted due to Environmental Limitations-(lack of equipment, weather restraints, etc.). 88-Not Attempted due to Medical Conditions or Safety Concerns. Oral Hygiene (QC): 5 (s/u in w/c in front of sink. Pt able to take dentation out and completes packet opening with s/u and cues. ) Upper Body Dressing (QC): 2 (Pt completes with max A : pt able to don R and overhead, requires assist with L and AAROM of L UE to thread. Decreased problem solving with threading. ) Lower Body Dressing (QC): 1 (TD, assist x2 in bed for breif and pants. Does attempt roll to L side with use of R UE.) On/Off Footwear: 1 (TD) Toileting Hygiene (QC): 1 (TD in bed. ) Other Treatment Pt completes rolls in bed to complete UE/ LE dressing and sarah lift placement. Sarah used to transfer to w/c. Pt able to initiate propelling with R UE/ LE to bathroom, mod A for w/c placement in bathroom. Pt compeltes oral hygiene with s/u and increased time. In gym, SPT x2 to EOM. Sitting balance initiated with CGA-max A for righting task in midline. Pt able to complete 10x modified sit ups from ~45* to sitting upright with CGA. Pt completes 3 reaching tasks with RUE with mod A for righting during reach. Pt SPT to w/c and then to recliner. All needs met, PROM completed to LUE in all planes. Pt expresses pain in RUE/ LE- stating, "Dull pain, started today." Pain not consistent with LUE movement/ PROM. Pt in chair end of session, pt's posture positioned for safety and midline placement. Call light in reach, nursing present. Education OT Patient Education: Correct positioning, Exercise program, Modified ADL techniques, Progress toward Goal/Update tx plan, Purpose of tx/functional activities, Safety issues, Transfer techniques, W/C management Teaching Recipient: Patient Teaching Methods: Demonstration, Discussion Response to Teaching: Verbalize Understanding, Return Demonstration, Reinforcement Needed OT Short Term Goals Short Term Goals Time Frame: Sep 19, 2019 Shower/bathe self: 2 Upper body dressin Lower body dressin OT Care Home Goals Triage Specialist Goals Time Frame: Oct 03, 2019 Eating (QC): 4 Oral Hygiene (QC): 4 Toileting Hygiene (QC): 3 Shower/Bathe Self (QC): 3 Upper Body Dressing (QC): 3 Lower Body Dressing (QC): 2 On/Off Footwear (QC): 2 Additional Goals: 1-Demonstrate ADL Tasks, 2-Verbalize Understanding, 3-ImproveStrength/Aliyah 1=Demonstrate adherence to instructed precautions during ADL tasks. 2=Patient will verbalize/demonstrate understanding of assistive devices/modifications for ADL. 3=Patient will improve strength/tolerance for activity to enable patient to perf orm ADL's. OT Education/Plan Problem List/Assessment Assessment: Decreased Activ Tolerance, Decreased Safety Aware, Decreased UE Strength, Dependent Transfers, Impaired Bed Mobility, Impaired Coordination, Impaired Funct Balance, Impaired I ADL's, Impaired Self-Care Skills, Restricted Funct UE ROM Discharge Recommendations Plan/Recommendations: Continue POC Therapy Discharge Recommendati: 24 Hour Supervision, Home & Family, Post Acute OT Treatment Plan/Plan of Care Treatment,Training & Education: Yes Patient would benefit from OT for education, treatment and training to promote independence in ADL's, mobility, safety and/or upper extremity function for ADL's. Plan of Care: ADL Retraining, Caregiver Training, Functional Mobility, Group Exercise/Act as Ind, Orthotic Fitting/Training, UE Funct Exercise/Act, UE Neuromus Re-Ed/Coord, Visual/Perceptual Retrain, W/C Management Training Treatment Duration: Oct 03, 2019 Frequency: At least 5 of 7 days/Wk (IRF) Estimated Hrs Per Day: 1.5 hours per day Agreement: Yes Rehab Potential: Poor Time/GCodes Start Time: 08:00 Stop Time: 09:15 Total Time Billed (hr/min): 75 Billed Treatment Time 1, ADL 2, EX 2, NM (75) TRINI STOVER OTR Sep 20, 2019 09:25
--- NOTE | 2019-09-20 10:41 | NUR ---
KRISTINE (PATRON ATTENDANT) HERE WITH ORDERS TO DECREASE FROM 7 TO 6 CARTONS OF JEVITY PER DAY. TIMES WILL BE- 06,09,12,15,18,21.
--- NOTE | 2019-09-20 11:16 | NUR ---
DR. ROSARIO HERE THIS AM WITH ORDERS TO RESUME ASA. CONTINUE TO HOLD WARFARIN AND LOVENOX PER DR. MORENO.
--- NOTE | 2019-09-20 11:43 | Speech Therapy Daily Note ---
Speech Daily Progress Note Subjective Date Seen by Provider: Sep 20, 2019 Time Seen by Provider: 00:30 Patient was resting in his recliner following his other therapy. Patient continues to be sleepy, requiring frequent prompts to engage. Objective Patient completed a series of word repetitions with 70% given maximum cues. Assessment Assessment Current Status: Fair Progress Treatment Plan Continue Plan of Care Speech Short Term Goals Short Term Goals Short Term Goals 1) Patient will complete expressive language exercises at 90% or greater with minimal cues. 2) Patient will complete OME x10 with 90% or greater with minimal cues. 3) Patient will complete oral trials with 90% or greater without s/s of aspiration. Speech Senior Living Goals Program Advocate Goals Patient will improve speech production for effective communication of his wants/needs. Patient will maintain adequate nutrition/hydration via PEG and/or oral intake. Speech-Plan Patient/Family Goals Patient/Family Goals: Patient plans on returning to his home where he lives with his . This discharge situation will be determined with input from the rehab team based on his progress. Treatment Plan Speech Therapy Treatment Plan: Continue Plan of Care Treatment Duration: Sep 28, 2019 Frequency: 4 times per week (Patient will receive skilled ST 4-5x per week) Estimated Hrs Per Day: .5 hour per day Rehab Potential: Poor Barriers to Learning: Patient's CVA affects, patient's ability to participate Pt/Family Agrees to Plan: Yes Safety Risks/Education Teaching Recipient: Patient Teaching Methods: Demonstration, Discussion Response to Teaching: Verbalize Understanding, Return Demonstration, Rein forcement Needed Education Topics Provided: Continued safety and communication Time Speech Therapy Time In: 10:00 Speech Therapy Time Out: 10:30 Total Billed Time: 30 Billed Treatment Time 1VONDA BETHANIA ST Sep 20, 2019 11:43
--- NOTE | 2019-09-20 13:10 | NUR ---
Patient Care Conference Discussed summary with patient's , Oksana, via telephone. Patient's and patient are in agreement with team's recommendation to reevaluate patient's progress next week. Patient will require continued stay review with insurance, [employer], and patient's verbalized understanding of this requirement. Patient's states she would like patient to stay on the rehab unit as long as he can so that he can gain as much independence as possible.
--- NOTE | 2019-09-20 13:31 | NUR ---
"RD ASSESSMENT PMHx: dysphagia; afib; HTN; CAD: hypercholesterolemia; stroke (08/02/2019) PT INTERACTION: Pt was very asleep during nutrition follow-up. Pt currently receiving TF of: Jevity 1.5 x7can/day, flushing with 60ml water before and after each bolus. This provides 2485 kcal (30 kcal/kg); 106 g Pro (1.3 g Pro/kg); and 2100ml free water (with flushes). Per RN, pt appears to be tolerating bolus feeds well, with no issues of nausea or vomiting. Note lat BM was 09/19, and pt currently on bowel regimen of colace BID; senna BID; and miralax BID; per chart review. Note pt has recent 8# wt gain x8d, per chart review. ABNORMAL NUTRITION-RELATED LAB VALUES LOW: Pro 6.2; HIGH: BUN 28 Est. kcal needs: 2025 kcal | 25 kcal/kg Est. Pro needs: 97 g Pro | 1.2 g Pro/kg PES STATEMENT: Inadequate oral intake (NI-2.1) related to NPO status as evidenced by chart review INTERVENTION: Note pt is currently NPO, and has a PEG tube. Would recommend switching from 7 cans of Jevity 1.5 per day to 6 cans per day, to prevent overfeeding. Flush with 70ml water before and after each bolus, for hydration status. 6 cans of Jevity 1.5 per day would provide 2130 kcal (26 kcal/kg); 91 g Pro (1.1 g Pro/kg); and 1980ml free water (with flushes). Will continue to follow and reassess as pt needs, intake, and status change. MONITOR/EVALUATE: PO Intake; Plan of Care; Hydration Status; Weight Status; Lab Values Nima Carrasco, MS, RD, LD"
--- NOTE | 2019-09-20 14:19 | Physical Therapy Daily Note ---
PT Daily Note-Current Subjective Patient in bed pre tx, agrees to PT, voices no complaints of pain, no grimacing during tx. Appearance Patient in bed post tx with nurse call, phone, tray, all needs met, bed alarm on. Mental Status Patient Orientation: Person, Unable to Assess, Non-Verbal/Aphasic Transfers SCALE: Activities may be completed with or without assistive devices. 6-Ueturbpoxt-teeduia completes the activity by him/herself with no assistance from a helper. 5-Set-up or Clean-up Assistance-helper sets up or cleans up; patient completes activity. [place] assists only prior to or following the activity. 4-Supervision or Touching Assistance-helper provides verbal cues and/or touching/steadying and/or contact guard assistance as patient completes activity . Assistance may be provided throughout the activity or intermittently. 3-Partial/Moderate Assistance-helper does LESS THAN HALF the effort. [place] lifts, holds or supports trunk or limbs, but provides less than half the effort. 2-Substantial/Maximal Assistance-helper does MORE THAN HALF the effort. [place] lifts or holds trunk or limbs and provides more than half the effort. 9-Upmlshkby-wkyqdt does ALL the effort. Patient does none of the effort to complete the activity. Or, the assistance of 2 or more helpers is required for the patient to complete the activity. If activity was not attempted, code reason: 7-Patient Refused. 9-Not Applicable-not attempted and the patient did not perform the activity before the current illness, exacerbation or injury. 10-Not Attempted due to Environmental Limitations-(lack of equipment, weather restraints, etc.). 88-Not Attempted due to Medical Conditions or Safety Concerns. Exercises Supine Ex: Ankle pumps, Quad Set, Glut sets, Heel Slides (AAROM), Short Arc Quads, Straight leg raise (AAROM), Hip abd/add (AAROM) Supine Reps: 20 (RLE) LLE stretching/PROM in all planes. Treatments ROM Assessment Current Status: Poor Progress Patient has trouble following directions, needs constant cues and redirection. Patient perseverates on resting his right leg on top of things. PT Short Term Goals Short Term Goals Time Frame: Sep 19, 2019 Roll Left & Right: 2 Sit to lyin Lying to sitting on side of be: 2 Sit to stand: 2 Chair/zpc-wi-hdcyo transfer: 2 Wheel 50ft w/2 turns: 2 Wheel 150 feet: 2 PT Automatic Beam Warper Tender Goals Automatic Beam Warper Tender Goals PT Automatic Beam Warper Tender Goals Time Frame: Oct 03, 2019 Roll Left & Right (QC): 3 Sit to Lying (QC): 3 Lying-Sitting on Side/Bed(QC): 3 Sit to Stand (QC): 3 Chair/Epy-um-Tnmzt Xfer(QC): 3 Toilet Transfer (QC): 3 Car Transfer (QC): 3 Does the Patient Walk: No and Walking Goal NOT indicated Walk 10 feet (QC): 88 Walk 50ft with 2 Turns (QC): 88 Walk 150 ft (QC): 88 Walking 10ft on Uneven Surface: 88 1 Step (curb) (QC): 88 4 Steps (QC): 88 12 Steps (QC): 88 Picking up an Object (QC): 88 Wheel 50 feet with 2 turns (QC: 3 Wheel 150 feet: 3 PT Plan Problem List Problem List: Activity Tolerance, Functional Strength, Safety, Balance, Gait, Transfer, Bed Mobility, ROM Treatment/Plan Treatment Plan: Continue Plan of Care Treatment Plan: Bed Mobility, Education, Functional Activity Aliyah, Functional Strength, Group Therapy, Gait, Safety, Therapeutic Exercise, Transfers Treatment Duration: Oct 03, 2019 Frequency: At least 5 of 7 days/Wk (IRF) Estimated Hrs Per Day: 1.5 hours per day Patient and/or Family Agrees t: Yes Safety Risks/Education Patient Education: Correct Positioning, Safety Issues Teaching Recipient: Patient Teaching Methods: Demonstration, Discussion Response to Teaching: Reinforcement Needed Time/GCodes Time In: 1400 Time Out: 1415 Total Billed Treatment Time: 15 Total Billed Treatment 1 visit EX RUY MCLEOD PT Sep 20, 2019 14:19
--- NOTE | 2019-09-20 16:53 | Progress Note - Surgery ---
STEVENYUE MED STUDENT 09/20/19 1653: Subjective Date Seen by a Provider: Sep 20, 2019 Time Seen by a Provider: 07:30 Subjective/Events-last exam Pt in no acute distress and appears comfortable. Denies abdominal pain, n/v, fever, chest pain, sob. Objective Exam Vital Signs Date Time Temp Pulse Resp B/P (MAP) Pulse Ox O2 Delivery O2 Flow Rate FiO2 09/20/19 09:00 Room Air 09/20/19 06:00 36.2 80 18 115/71 (86) 96 Room Air 09/19/19 23:11 Room Air 09/19/19 20:30 Room Air 09/19/19 18:41 39.2 93 16 130/50 (76) 99 Room Air I & O 09/20/19 07:00 Intake Total 2311 ml Balance 2311 ml Capillary Refill : Less Than 3 Seconds General Appearance: No Apparent Distress, WD/WN, Chronically ill HEENT: PERRL/EOMI, Normal ENT Inspection, Pharynx Normal Neck: Full Range of Motion, Normal Inspection, Non Tender, Supple, Carotid Bruit Respiratory: Chest Non Tender, Lungs Clear, Normal Breath Sounds, No Accessory Muscle Use, No Respiratory Distress Cardiovascular: No Edema, No Gallop, No JVD, No Murmur, Normal Peripheral Pulses, Irregularly Irregular Gastrointestinal: non tender (gastrostomy tube luq), soft Extremity: Normal Capillary Refill, Normal Inspection, Normal Range of Motion, Non Tender, No Calf Tenderness, Pedal Edema Neurologic/Psychiatric: Alert, Oriented x3, Normal Mood/Affect, 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 Norm as Tested, Aphasia, Facial Droop (left), Motor Weakness (left sided) Skin: Normal Color, Warm/Dry Lymphatic: No Adenopathy Results Lab Laboratory Tests 09/20/19 04:34: White Blood Count 8.0, Red Blood Count 3.71L, Hemoglobin 10.0L, Hematocrit 32L, Mean Corpuscular Volume 87, Mean Corpuscular Hemoglobin 27, Mean Corpuscular Hemoglobin Concent 31L, Red Cell Distribution Width 16.1H, Platelet Count 294, Mean Platelet Volume 10.3 Assessment/Plan Assessment/Plan Assessment/Plan anemia secondary to blood loss anticoagulation on hold Melena-resolved Epigastric abdominal pain likely related to gastrostomy tube placement recent CVA hgb stable, could restart anticoagulation and see if has any further bleeding if does would plan on endoscopy not sure if patient would tolerate prep at this time Clinical Quality Measures DVT/VTE Risk/Contraindication: Risk Factor Score Per Nursin RFS Level Per Nursing on Admit: 4+=Very High CELSO FLORES DO 09/20/192023: Subjective Subjective/Events-last exam Patient laying in bed. Talks minimally. He is alert. He is not having any abdominal pain. Tolerating feeds through gastrostomy. Hgb stable. Objective Exam General Appearance: No Apparent Distress, Chronically ill HEENT: PERRL/EOMI Neck: Normal Inspection, Non Tender Respiratory: Chest Non Tender, No Accessory Muscle Use, No Respiratory Distress Cardiovascular: No Edema, Irregularly Irregular Gastrointestinal: non tender (gastrostomy tube luq), soft, no organomegaly Extremity: Normal Inspection, Non Tender Neurologic/Psychiatric: Alert, Normal Mood/Affect, Facial Droop (left), Motor Weakness (left sided) Skin: Normal Color, Warm/Dry Lymphatic: No Adenopathy Assessment/Plan Assessment/Plan Assessment/Plan anemia secondary to blood loss anticoagulation on hold Melena-resolved Epigastric abdominal pain likely related to gastrostomy tube placement-resolved recent CVA hgb has been stable around 10. discussed with Dr. Simon and do not feel can tolerate prep. Would continue with conservative measures. If rebleeds would re-evaluate. Will sign off, call if needed. Supervisory-Addendum Brief Verification & Attestation Participated in pt care: history, MDM, physical Personally performed: exam, history, MDM, supervision of care Care discussed with: Medical Student Procedures: n/a Results interpretation: Verified all documentation Verification and Attestation of Medical Student E/M Service A medical student performed and documented this service in my presence. I reviewed and verified all information documented by the medical student and made modifications to such information, when appropriate. I personally performed the physical exam and medical decision making. Celso Flores, Sep 20, 2019,20:24 YUE HARRIS MED STUDENT Sep 20, 2019 16:53 CELSO FLORES DO Sep 20, 2019 20:24
--- NOTE | 2019-09-20 17:53 | Cardiology Progress Note ---
Cardiology SOAP Progress Note Subjective: No cardiac complaints. No further GI bleeding. Objective: I&O/Vital Signs 09/20/19 09/20/19 06:00 09:00 Temp 36.2 Pulse 80 Resp 18 B/P (MAP) 115/71 (86) Pulse Ox 96 O2 Delivery Room Air Room Air 09/20/19 00:00 Intake Total 1200 ml Balance 1200 ml Constitutional: well-developed, well-nourished, other (Drowsy, awakens easily, oriented to self only) Respiratory: No accessory muscle use, No respiratory distress; chest expansion is symmetric, chest is bilaterally symmetric, lungs clear to auscultation Cardiovascular: regular rate-rhythm (EKG shows SR with PVC's); No JVD; S1 and S2, systolic murmur Gastrointestional: soft, audible bowel sounds, other (PEG tube in place) Extremities: no lower extremity edema bilateral Neurologic/Psychiatric: other (moves right extremities; does not move left upper or lower extremity) Skin: No rash on exposed areas, No ulcerations on exposed areas Results/Procedures: Labs Laboratory Tests 09/20/19 04:34: White Blood Count 8.0, Red Blood Count 3.71L, Hemoglobin 10.0L, Hematocrit 32L, Mean Corpuscular Volume 87, Mean Corpuscular Hemoglobin 27, Mean Corpuscular Hemoglobin Concent 31L, Red Cell Distribution Width 16.1H, Platelet Count 294, Mean Platelet Volume 10.3 A/P: Assessment/Dx: Hematochezia on 09/15/19 (warfarin and ASA held) being managed by Dr Simon and Dr Flores 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 Dias at [facility] Records from [facility] report h/o CVA x 3 (2008, 2013 x2) H/O PE in 2017 tx at [facility] Dysphagia - PEG tube in place HTN CAD - CABG x 4 vessel in February 2016 at [facility] by Dr. Regan - quadruple bypass with VILLATORO to LAD, saphenous vein graft to OM 1, saphenous vein T graft to D1, saphenous vein graft to LPDA. 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 Has been on warfarin H/O hematology w/u at [facility] which did not show hypercoagulable state H/O acute gangrenous cholecystitis for which he underwent cholecystectomy in July 2019 at [place], [place] Documented h/o prostate cancer Plan: Plan: General surgery has cleared the patient for antiplatelet therapy. Start the patient on aspirin. Defer starting Coumadin to Dr. Simon. Monitor labs Thank you for your consultation. Please call me if you have any questions. Cresencio Sweet MD, FACP, FACC, FSCAI, FHRS, CCDS Interventional Cardiology Cardiac Electrophysiology Vascular Medicine and Endovascular Interventions Miguel SWEET MD Sep 20, 2019 17:53
[2019-09-20 18:00] VITALS: BP 123/58
--- NOTE | 2019-09-20 19:09 | NUR ---
ALVAREZ CAT TO [facility].
[2019-09-20] MEDS: ALPRAZolam 0.25 MG (XANAX) TAB PO PRN (21:26)
[2019-09-20] MEDS: ACETAMINOPHEN 325 MG TABLET PO PRN (23:17)
[2019-09-20] MEDS: MELATONIN 3 MG TABLET PO PRN (23:17)
[2019-09-21 06:00] VITALS: BP 148/76
[2019-09-21] MEDS: LEVOTHYROXINE 75 MCG (LEVOTHROID) TABLET PO SCH (06:02)
[2019-09-21] MEDS: SUCRALFATE 1 GM (CARAFATE) TAB PO SCH ×3 (06:02→18:07)
[2019-09-21] MEDS: DOCUSATE SODIUM 100 MG (COLACE) CAP PO SCH ×2 (07:53→22:52)
[2019-09-21] MEDS: polyethylene glycoL POWDER 17 GM (MIRALAX) PACK PO SCH ×2 (07:54→22:45)
[2019-09-21] MEDS: SENNA W/DOCUSATE (SENOKOT S) TABLET PO SCH ×2 (07:54→22:37)
[2019-09-21] MEDS: LACTOBACILLUS ACIDOPHILUS (PROBIOTIC) CAPSULE PEG SCH ×2 (08:52→22:36)
[2019-09-21] MEDS: meTOprolol TARTRATE 25 MG (LOPRESSOR) TABLET PO SCH ×2 (08:52→18:07)
[2019-09-21] MEDS: ASPIRIN 81 MG CHEW (CHILDREN'S ASA) PO SCH (08:52)
--- NOTE | 2019-09-21 09:36 | Occupational Ther Daily Note ---
OT Current Status-Daily Note Subjective Pt seen in bed. Alert, agrees to therapy. PT/ OT co-treat, OT addresses L UE attention/ ROM, attention to task, ADL tasks and balance while PT addresses w/c mob, functional transfers and gross motor tasks. Pt refers to pain in bottom - cream applied. Mental Status/Objective Attachments: PEG Tube ADL-Treatment Therapy Code Descriptions/Definitions Functional [place] Measure: 0=Not Assessed/NA 4=Minimal Assistance 1=Total Assistance 5=Supervision or Setup 2=Maximal Assistance 6=Modified [place] 3=Moderate Assistance 7=Complete IndependenceSCALE: Activities may be completed with or without assistive devices. 1-Jidjrkurcf-wrtguhx completes the activity by him/herself with no assistance from a helper. 5-Set-up or Clean-up Assistance-helper sets up or cleans up; patient completes activity. [place] assists only prior to or following the activity. 4-Supervision or Touching Assistance-helper provides verbal cues and/or touching/steadying and/or contact guard assistance as patient completes activity. Assistance may be provided throughout the activity or intermittently. 3-Partial/Moderate Assistance-helper does LESS THAN HALF the effort. [place] lifts, holds or supports trunk or limbs, but provides less than half the effort. 2-Substantial/Maximal Assistance-helper does MORE THAN HALF the effort. [place] lifts or holds trunk or limbs and provides more than half the effort. 6-Owsclcflz-kqdfkg does ALL the effort. Patient does none of the effort to complete the activity. Or, the assistance of 2 or more helpers is required for the patient to complete the activity. If activity was not attempted, code reason: 7-Patient Refused. 9-Not Applicable-not attempted and the patient did not perform the activity before the current illness, exacerbation or injury. 10-Not Attempted due to Environmental Limitations-(lack of equipment, weather restraints, etc.). 88-Not Attempted due to Medical Conditions or Safety Concerns. Shower/Bathe Self (QC): 1 (TD, Ax2 for bathing in bed. ) Lower Body Dressing (QC): 1 (TD, max A x2 for rolling and attention to task.) On/Off Footwear: 1 Toileting Hygiene (QC): 1 Other Treatment Pt completes BM cleaning and jean-pierre hygiene/ LB dressing in bed with assist x2, max A sit to supine (initiated LE movement toward EOB). SPT to w/c. Pt attempts placing dentures, places to L side only. Max A for correct positioning and completing. Pt completes w/c mob with RLE/ LE max A for mob. Pt stands at parallel bars with Ax2 for positioning and strength. Pt requires max cues for head positioning and pulling of RUE rather than pushing. PROM completed of LUE to 90* and all distal joints to full range. Pt educated on self ranging, max cues for L limb awareness. Pt returns to room, SPT to recliner. Pt positioned with pillows for anti contracture management and safety/ midline positioning. All needs met, call light in reach. Education OT Patient Education: Correct positioning, Disease process, Exercise program, Home exercise program, Modified ADL techniques, Progress toward Goal/Update tx plan, Purpose of tx/functional activities, Safety issues Teaching Recipient: Patient Teaching Methods: Demonstration, Discussion Response to Teaching: Verbalize Understanding, Return Demonstration, Reinforcement Needed OT Short Term Goals Short Term Goals Time Frame: Sep 19, 2019 Shower/bathe self: 2 Upper body dressin Lower body dressin OT Usp Goals Road Mender Goals Time Frame: Oct 03, 2019 Eating (QC): 4 Oral Hygiene (QC): 4 Toileting Hygiene (QC): 3 Shower/Bathe Self (QC): 3 Upper Body Dressing (QC): 3 Lower Body Dressing (QC): 2 On/Off Footwear (QC): 2 Additional Goals: 1-Demonstrate ADL Tasks, 2-Verbalize Understanding, 3-ImproveStrength/Aliyah 1=Demonstrate adherence to instructed precautions during ADL tasks. 2=Patient will verbalize/demonstrate understanding of assistive devices/modifications for ADL. 3=Patient will improve strength/tolerance for activity to enable patient to perform ADL's. OT Education/Plan Problem List/Assessment Assessment: Decreased Activ Tolerance, Decreased UE Strength, Dependent Transfers, Impaired Bed Mobility, Impaired Cognition, Impaired Coordination, Impaired Funct Balance, Impaired I ADL's, Impaired Self-Care Skills, Restricted Funct UE ROM, Visual-Perceptual Deficit Discharge Recommendations Plan/Recommendations: Continue POC Therapy Discharge Recommendati: 24 Hour Supervision, Scheduled Assistance, Home & Family Treatment Plan/Plan of Care Treatment,Training & Education: Yes Patient would benefit from OT for education, treatment and training to promote independence in ADL's, mobility, safety and/or upper extremity function for ADL's. Plan of Care: ADL Retraining, Caregiver Training, Functional Mobility, Group Exercise/Act as Ind, Orthotic Fitting/Training, UE Funct Exercise/Act, UE Neuromus Re-Ed/Coord, Visual/Perceptual Retrain, W/C Management Training Treatment Duration: Oct 03, 2019 Frequency: At least 5 of 7 days/Wk (IRF) Estimated Hrs Per Day: 1.5 hours per day Agreement: Yes Rehab Potential: Poor Time/GCodes Start Time: 08:00 Stop Time: 09:00 Total Time Billed (hr/min): 60 Billed Treatment Time 1, ADL, EX, NM 2 (60) PT/ OT co-treat, OT addresses L UE attention/ ROM, attention to task, ADL tasks and balance while PT addresses w/c mob, functional transfers and gross motor tasks. TRINI STOVER OTR Sep 21, 2019 09:36
--- NOTE | 2019-09-21 09:53 | Physical Therapy Daily Note ---
PT Daily Note-Current Subjective Patient in bed pre tx, agrees to PT, no complaints of pain, will be co-treating with OT due to poor patient mobility, strength, endurance, sitting and standing balance, pushers syndrome, the need to coordinate UE and LE during activity Appearance Patient in recliner post tx with nurse call, phone, tray, all needs met Mental Status Patient Orientation: Person, Unable to Assess, Non-Verbal/Aphasic, [place] Transfers SCALE: Activities may be completed with or without assistive devices. 8-Sqmpfrndtb-etlgirp completes the activity by him/herself with no assistance from a helper. 5-Set-up or Clean-up Assistance-helper sets up or cleans up; patient completes activity. [place] assists only prior to or following the activity. 4-Supervision or Touching Assistance-helper provides verbal cues and/or touching/steadying and/or contact guard assistance as patient completes activity. Assistance may be provided throughout the activity or intermittently. 3-Partial/Moderate Assistance-helper does LESS THAN HALF the effort. [place] lifts, holds or supports trunk or limbs, but provides less than half the effort. 2-Substantial/Maximal Assistance-helper does MORE THAN HALF the effort. [place] lifts or holds trunk or limbs and provides more than half the effort. 8-Tkeovogga-lxmygy does ALL the effort. Patient does none of the effort to complete the activity. Or, the assistance of 2 or more helpers is required for the patient to complete the activity. If activity was not attempted, code reason: 7-Patient Refused. 9-Not Applicable-not attempted and the patient did not perform the activity before the current illness, exacerbation or injury. 10-Not Attempted due to Environmental Limitations-(lack of equipment, weather restraints, etc.). 88-Not Attempted due to Medical Conditions or Safety Concerns. Roll Left & Right (QC): 2 Lying to Sitting/Side of Bed(Q: 1 Sit to Stand (QC): 1 Chair/Pjo-dc-Gwboc Xfer(QC): 1 Patient had a BM in bed, roll from side to side to clean BM and get new brief on and for dressing (roll about 5 times to each side) and for bathing in bed. Supine to sit and then stand pivot to WC (patient can assist some with this but leans heavily to the left side and doesn't assist enough to be considered max assist), WC training 150' to therapy gym with max assist (patient uses right arm and leg), taken to parallel bars and practice standing x3 with assist of 3 therapists for about 1 min each time, also sit to stand 1 set of 5 with assist of 3 therapists, WC back to room and stand pivot to recliner. Treatments PT worked on rolling, supine to sit, transfers, WC mobility, standing, OT worked on cleaning, dressing, bathing, UE positioning and safety during activity, assist with transfers and standing. Assessment Current Status: Poor Progress no change in mobility PT Short Term Goals Short Term Goals Time Frame: Sep 19, 2019 Roll Left & Right: 2 Sit to lyin Lying to sitting on side of be: 2 Sit to stand: 2 Chair/bxm-hs-lbhzb transfer: 2 Wheel 50ft w/2 turns: 2 Wheel 150 feet: 2 PT Box Toe Stitcher Goals Assisted Goals PT Assisted Goals Time Frame: Oct 03, 2019 Roll Left & Right (QC): 3 Sit to Lying (QC): 3 Lying-Sitting on Side/Bed(QC): 3 Sit to Stand (QC): 3 Chair/Rpz-wi-Vqjkt Xfer(QC): 3 Toilet Transfer (QC): 3 Car Transfer (QC): 3 Does the Patient Walk: No and Walking Goal NOT indicated Walk 10 feet (QC): 88 Walk 50ft with 2 Turns (QC): 88 Walk 150 ft (QC): 88 Walking 10ft on Uneven Surface: 88 1 Step (curb) (QC): 88 4 Steps (QC): 88 12 Steps (QC): 88 Picking up an Object (QC): 88 Wheel 50 feet with 2 turns (QC: 3 Wheel 150 feet: 3 PT Plan Problem List Problem List: Activity Tolerance, Functional Strength, Safety, Balance, Gait, Transfer, Bed Mobility, ROM Treatment/Plan Treatment Plan: Continue Plan of Care Treatment Plan: Bed Mobility, Education, Functional Activity Aliyah, Functional Strength, Group Therapy, Gait, Safety, Therapeutic Exercise, Transfers Treatment Duration: Oct 03, 2019 Frequency: At least 5 of 7 days/Wk (IRF) Estimated Hrs Per Day: 1.5 hours per day Patient and/or Family Agrees t: Yes Safety Risks/Education Patient Education: Transfer Techniques, Correct Positioning, W/C Management, Safety Issues Teaching Recipient: Patient Teaching Methods: Demonstration, Discussion Response to Teaching: Reinforcement Needed Time/GCodes Time In: 0800 Time Out: 0900 Total Billed Treatment Time: 60 Total Billed Treatment 1 visit FA 60' co-treated for the whole 60' RUY MCGRATH PT Sep 21, 2019 09:53
--- NOTE | 2019-09-21 09:56 | PM&R Progress Note ---
Subjective HPI/CC On Admission Date Seen by Provider: Sep 21, 2019 Time Seen by Provider: 10:00 Subjective/Events-last exam 09/21/19: Pt more talkative today No more bloody stools Two bowel movements last night were brown Decubitus ulcer on coccyx being monitored and managed 09/20/19: Pt sleeping most of the time Participating in therapy Tube feedings of one can every three hours is working a lot better for him, he i s tolerating it better No more bloody stools Cardiology restarted Aspirin but Coumadin will continue to be held because he has had two GI bleeds in the past two weeks and cant withstand a colonoscopy prep Very complex case 09/19/19: Pt sleeps most of the time Will discuss disposition, I doubt any recovery potential Overall needs probably a [facility] for [facility] care 09/18/19: Insomnia is an issue Worked with PT today but seems to take a lot of naps during the day which disrupts the nighttime sleeping No pain is reported 09/17/19: Pt sleeps most of the time No major changes No bloody stools Off of Lovenox, Coumadin and Aspirin Second GI bleed in the last few weeks 09/16/19: No bloody stools today Hgb stable 10.3 Is not strong enough to undergo C-scope prep Dr Flores saw him this morning Holding ASA Lovenox Coumadin Had GI at [place] also Decreased cognition 09/15/19: Patient had been doing pretty well when I rounded No more nausea and vomiting like yesterday Tube feeding was restarted slowly I stopped the Clinimix since tube feedings were started N.p.o. 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 Flores general surgery was consulted and checked hemoglobin and hematocrit. 09/14/19: Had nausea and vomiting all last night Needs IV fluids gently so we'll start that today Urinary incontinence noted No fecal incontinence Holding tube feedings for right now Barium swallow today at 11:30 INR 1.4 will increase dose and provide Lovenox 09/13/19: Patient doing pretty well today Sleeping currently Therapy worked with him today Modified Barium Swallow scheduled Hemoglobin 9.6 Disoriented at times Bowels moved yesterday Conferred with RN Reviewed Therapy notes Checked Meds and Labs Review of Systems General: Fatigue, Malaise Neurological: Weakness Objective Exam Vital Signs Vital Signs Date Time Temp Pulse Resp B/P (MAP) Pulse Ox O2 Delivery O2 Flow Rate FiO2 09/21/19 16:30 36.3 84 14 122/59 (80) 99 Room Air Capillary Refill : Less Than 3 Seconds General Appearance: No Apparent Distress, WD/WN, Chronically ill HEENT: PERRL/EOMI, Normal ENT Inspection, Pharynx Normal Neck: Full Range of Motion, Normal Inspection, Non Tender, Supple, Carotid Bruit Respiratory: Chest Non Tender, Lungs Clear, Normal Breath Sounds, No Accessory Muscle Use, No Respiratory Distress Cardiovascular: No Edema, No Gallop, No JVD, No Murmur, Normal Peripheral Pulses, Irregularly Irregular Gastrointestinal: Normal Bowel Sounds, No Organomegaly, No Pulsatile Mass, Non Tender, Soft Back: Normal Inspection, No CVA Tenderness, No Vertebral Tenderness Extremity: Normal Capillary Refill, Normal Inspection, Normal Range of Motion, Non Tender, No Calf Tenderness, Pedal Edema Neurologic/Psychiatric: Alert, Oriented x3, Normal Mood/Affect, threading machine tender II-XII Norm as Tested, Aphasia, Facial Droop (left), Motor Weakness (left sided) Skin: Normal Color, Warm/Dry Lymphatic: No Adenopathy Results/Procedures Lab Patient resulted labs reviewed. FIM Transfers Therapy Code Descriptions/Definitions Functional [place] Measure: 0=Not Assessed/NA 4=Minimal Assistance 1=Total Assistance 5=Supervision or Setup 2=Maximal Assistance 6=Modified [place] 3=Moderate Assistance 7=Complete IndependenceSCALE: Activities may be completed with or without assistive devices. 0-Pzybxnkiju-vhmtutr completes the activity by him/herself with no assistance from a helper. 5-Set-up or Clean-up Assistance-helper sets up or cleans up; patient completes activity. [place] assists only prior to or following the activity. 4-Supervision or Touching Assistance-helper provides verbal cues and/or touching/steadying and/or contact guard assistance as patient completes a ctivity. Assistance may be provided throughout the activity or intermittently. 3-Partial/Moderate Assistance-helper does LESS THAN HALF the effort. [place] lifts, holds or supports trunk or limbs, but provides less than half the effort. 2-Substantial/Maximal Assistance-helper does MORE THAN HALF the effort. [place] lifts or holds trunk or limbs and provides more than half the effort. 0-Dtzgtibkj-zkppld does ALL the effort. Patient does none of the effort to complete the activity. Or, the assistance of 2 or more helpers is required for the patient to complete the activity. If activity was not attempted, code reason: 7-Patient Refused. 9-Not Applicable-not attempted and the patient did not perform the activity before the current illness, exacerbation or injury. 10-Not Attempted due to Environmental Limitations-(lack of equipment, weather restraints, etc.). 88-Not Attempted due to Medical Conditions or Safety Concerns. Roll Left to Right (QC): 2 Sit to Lying (QC): 1 Sit to Stand (QC): 1 Chair/Bkz-ew-Odqrd Xfer(QC): 1 Car Transfer (QC): 1 Gait Training Does the Patient Walk?: No and Walking Goal NOT indicated Walk 10 feet (QC): 88 Walk 50 ft with 2 Turns(QC): 88 Walk 150 ft (QC): 88 Walking 10ft/uneven surface-QC: 88 Wheelchair Training Does the Pt Use a Wheelchair?: Yes Distance: 150'x2 Wheel 50 ft with 2 turns (QC): 2 (mod assist to guide chair.) Wheel 150 ft (QC): 1 Type of Wheelchair: Manual Stair Training 1 Step (curb) (QC): 88 4 Steps (QC): 88 12 Steps (QC): 88 Balance Picking up an Object (QC): 88 ADL-Treatment Eating (QC): 88 (See HEAD OF SALES notes) Oral Hygiene (QC): 5 (s/u in w/c in front of sink. Pt able to take dentation out and completes packet opening with s/u and cues. ) Bathing Location: Chest, Abdomen, Perineal Area Shower/Bathe Self (QC): 1 (TD, Ax2 for bathing in bed. ) Upper Body Dressing (QC): 2 (Pt completes with max A : pt able to don R and overhead, requires assist with L and AAROM of L UE to thread. Decreased problem solving with threading. ) Lower Body Dressing (QC): 1 (TD, max A x2 for rolling and attention to task.) On/Off Footwear (QC): 1 Toileting Hygiene (QC): 1 Toilet Transfer (QC): 88 (Using bedpan) Assessment/Plan Assessment and Plan Assess & Plan/Chief Complaint Assessment: CVA Left sided weakness Left sided neglect PEG tube status Dysphagia Aspiration hx with PNA CAD AF Coumadin treatment GIB 09/14/19 Plan: IRF protocol ST to work on dysphagia TF to be maintained Coumadin treatment Cardiology evaluation 09/13/19: Continue aggressive treatment Barium Swallow Monitor Hemoglobin 09/14/19: Give gentle IV fluids Increase INR with Coumadin with Lovenox bridge Barium swallow today 09/15/2019: Monitor GI bleed Hold Coumadin and Lovenox and aspirin Hold tube feedings Consult general surgery for endoscopies Maintain n.p.o. status due to aspiration risk 09/16/19: Monitor Hgb NPO Aspiration risk TF gently 09/17/19: No major changes Sleeping most of the time Stay off blood thinners due to second GI bleed 09/18/19: Insomnia treatment Continue aggressive physical therapy 09/19/19: Disposition will be discussed in team conference Tube feedings are tolerated well No more bloody stools Scrotum seems to be bleeding at times 09/19/19: Continue tube feedings of 1 can every 3 hours Sleeps most of the time No more bloody stools Aspirin was restarted Two GI bleeds in less than 2 weeks precludes restarting Coumadin 09/21/19: No more bloody stools Bowels are now light brown Coccyx has alevan to help heal (1) CVA (cerebral vascular accident) (2) Atrial fibrillation with normal ventricular rate (3) CAD (coronary artery disease) (4) Stented coronary artery (5) Dysphagia (6) Left-sided weakness (7) At risk for aspiration (8) PEG (percutaneous endoscopic gastrostomy) status (9) On warfarin therapy (10) Left-sided neglect (11) Facial droop KENZIE MORENO DO Sep 21, 2019 09:56
--- NOTE | 2019-09-21 10:06 | Speech Therapy Daily Note ---
Speech Daily Progress Note Subjective Date Seen by Provider: Sep 21, 2019 Time Seen by Provider: 00:30 Patient resting in his recliner following OT and PT session. Patient participated with ST given frequent verbal and/or tactile cues to stay awake. Objective Patient answered simple questions with 75% given mod to max cues and/or repetitions. Assessment Assessment Current Status: Fair Progress Treatment Plan Continue Plan of Care Speech Short Term Goals Short Term Goals Short Term Goals 1) Patient will complete expressive language exercises at 90% or greater with minimal cues. 2) Patient will complete OME x10 with 90% or greater with minimal cues. 3) Patient will complete oral trials with 90% or greater without s/s of aspiration. Speech Charrer Goals Charrer Goals Patient will improve speech production for effective communication of his wants/needs. Patient will maintain adequate nutrition/hydration via PEG and/or oral intake. Speech-Plan Patient/Family Goals Patient/Family Goals: Patient's plan is to return home with family support, however due to his extensive daily needs this may not be the best discharge environment. Treatment Plan Speech Therapy Treatment Plan: Continue Plan of Care Treatment Duration: Sep 28, 2019 Frequency: 4 times per week (Patient will receive skilled ST 4-5x per week) Estimated Hrs Per Day: .5 hour per day Rehab Potential: Poor Barriers to Learning: Patient's decreased level of function due to CVA Pt/Family Agrees to Plan: Yes Safety Risks/Education Teaching Recipient: Patient Teaching Methods: Demonstration, Discussion Response to Teaching: Verbalize Understanding, Return Demonstration Education Topics Provided: Continued use of call light as needed. Time Speech Therapy Time In: 10:00 Speech Therapy Time Out: 10:30 Total Billed Time: 30 Billed Treatment Time 1VONDA BETHANIA ST Sep 21, 2019 10:06
[2019-09-21] MEDS: PANTOPRAZOLE 2 MG/ML LIQUID 200 ML (PROTONIX) PEG SCH ×6 (11:01→22:53)
[2019-09-21] MEDS: SCOPOLAMINE 1.5 MG (TRANSDERM-SCOP) PATCH TD SCH (11:01)
[2019-09-21] MEDS: SCOPOLAMINE PATCH REMOVAL TP SCH (11:02)
--- NOTE | 2019-09-21 15:09 | Therapy Group Daily Note ---
Therapy Daily Group Note Patient Education Topic Home Safety, Other List Below (Orientation to rehab) Exercises LE Seated Exercise, UE Exercise Session Ratio (pt:therapist): 3:1 Goal of Session: Education on ARU Expectations, Home Safety Strategies, UE/LE Strengthing Goal Met for this Session: Yes Pt Benefit of Group: Contributions to Others, F/U Use of Strategies @Home, Increased Functional Safety, Increased Functional Strength, Socialization Other/Notes Pt. participated in group PT OT session this date. Pt. transferred to w/c with dependent assist and taken to and from group. Pt. was social, introducing self and shared briefly his hometown and what he might like to eat when he is out of the hospital. Pt. demonstrated seated U&L extremity exercises to others in group reading and following directions from written illustrated exercises which were distributed to all participants just prior to group. Pt. participated well performing all exercises with a few verbal and tactile cues; PROM completed of LUE during these tasks as well. Home safety was topic of education with patients sharing their knowledge and experiences. Tripping hazards, adequate lighting sources, efficient ways of communication in case of emergency, as well as bathroom rails etc were covered. Explanation of ARU expectations and goals was outlined . Pt. donned mask for entire group session. After group pt. was assisted to room , transferred in to bed with dependent assist and call roberts at hand with all needs met. Start Time: 13:00 Stop Time: 14:00 Total Billed Treatment Time: 60 Total Billed Treatment 1, GRP (60 minutes) TRINI STOVER OTR Sep 21, 2019 15:09
[2019-09-21 16:30] VITALS: BP 122/59
--- NOTE | 2019-09-21 16:59 | Cardiology Progress Note ---
Cardiology SOAP Progress Note Subjective: No cardiac complaints. Objective: I&O/Vital Signs 09/21/19 09/21/19 09/21/19 06:00 09:04 11:12 Temp 36.4 Pulse 91 Resp 14 B/P (MAP) 148/76 (100) Pulse Ox 95 O2 Delivery Room Air Room Air Room Air 09/21/19 00:00 Intake Total 1071 ml Balance 1071 ml Constitutional: well-developed, well-nourished, other (Drowsy, awakens easily, oriented to self only) Respiratory: No accessory muscle use, No respiratory distress; chest expansion is symmetric, chest is bilaterally symmetric, lungs clear to auscultation Cardiovascular: regular rate-rhythm (EKG shows SR with PVC's); No JVD; S1 and S2, systolic murmur Gastrointestional: soft, audible bowel sounds, other (PEG tube in place) Extremities: no lower extremity edema bilateral Neurologic/Psychiatric: other (moves right extremities; does not move left upper or lower extremity) Skin: No rash on exposed areas, No ulcerations on exposed areas A/P: Assessment/Dx: Hematochezia on 09/15/19 (warfarin and ASA were held) being managed by Dr Simon and Dr Flores 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 Dias at [facility] Records from [facility] report h/o CVA x 3 (2008, 2013 x2) H/O PE in 2017 tx at [facility] Dysphagia - PEG tube in place HTN CAD - CABG x 4 vessel in February 2016 at [facility] by Dr. Regan - quadruple bypass with VILLATORO to LAD, saphenous vein graft to OM 1, saphenous vein T graft to D1, saphenous vein graft to LPDA. 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 Has been on warfarin H/O hematology w/u at [facility] which did not show hypercoagulable state H/O acute gangrenous cholecystitis for which he underwent cholecystectomy in July 2019 at [place], [place] Documented h/o prostate cancer Plan: Plan: General surgery has cleared the patient for antiplatelet therapy. Recommend starting the patient on aspirin. Defer starting Coumadin to Dr. Simon. Monitor labs Thank you for your consultation. Please call me if you have any questions. Cersencio Sweet MD, FACP, FACC, FSCAI, FHRS, CCDS Interventional Cardiology Cardiac Electrophysiology Vascular Medicine and Endovascular Interventions Miguel SWEET MD Sep 21, 2019 16:59
--- NOTE | 2019-09-21 19:12 | NUR ---
bedside report received from JUDI DIAMOND, assume care of pt
--- NOTE | 2019-09-21 21:20 | NUR ---
gastric residual 4ml, tube feeding 1.5 jevity with water flush 60ml prior & after tube feeding, tolerated well
[2019-09-21] MEDS: ALPRAZolam 0.25 MG (XANAX) TAB PO PRN (22:37)
--- NOTE | 2019-09-21 22:53 | NUR ---
pt given Senokot crushed but refused miralax & Colace
[2019-09-22] MEDS: SUCRALFATE 1 GM (CARAFATE) TAB PO SCH ×4 (00:13→18:31)
[2019-09-22 06:00] VITALS: BP 109/53
[2019-09-22] MEDS: LEVOTHYROXINE 75 MCG (LEVOTHROID) TABLET PO SCH (06:33)
--- NOTE | 2019-09-22 06:52 | PM&R Progress Note ---
Subjective HPI/CC On Admission Date Seen by Provider: Sep 22, 2019 Time Seen by Provider: 12:30 Subjective/Events-last exam 09/22/19: BM yesterday Tolerating TF well No pain reported 09/21/19: Pt more talkative today No more bloody stools Two bowel movements last night were brown Decubitus ulcer on coccyx being monitored and managed 09/20/19: Pt sleeping most of the time Participating in therapy Tube feedings of one can every three hours is working a lot better for him, he is tolerating it better No more bloody stools Cardiology restarted Aspirin but Coumadin will continue to be held because he has had two GI bleeds in the past two weeks and cant withstand a colonoscopy prep Very complex case 09/19/19: Pt sleeps most of the time Will discuss disposition, I doubt any recovery potential Overall needs probably a [facility]pc for long-term care 09/18/19: Insomnia is an issue Worked with PT today but seems to take a lot of naps during the day which disrupts the nighttime sleeping No pain is reported 09/17/19: Pt sleeps most of the time No major changes No bloody stools Off of Lovenox, Coumadin and Aspirin Second GI bleed in the last few weeks 09/16/19: No bloody stools today Hgb stable 10.3 Is not strong enough to undergo C-scope prep Dr Flores saw him this morning Holding ASA Lovenox Coumadin Had GI at [place] also Decreased cognition 09/15/19: Patient had been doing pretty well when I rounded No more nausea and vomiting like yesterday Tube feeding was restarted slowly I stopped the Clinimix since tube feedings were started N.p.o. 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 Flores general surgery was consulted and checked hemoglobin and hematocrit. 09/14/19: Had nausea and vomiting all last night Needs IV fluids gently so we'll start that today Urinary incontinence noted No fecal incontinence Holding tube feedings for right now Barium swallow today at 11:30 INR 1.4 will increase dose and provide Lovenox 09/13/19: Patient doing pretty well today Sleeping currently Therapy worked with him today Modified Barium Swallow scheduled Hemoglobin 9.6 Disoriented at times Bowels moved yesterday Conferred with RN Reviewed Therapy notes Checked Meds and Labs Review of Systems General: Fatigue, Malaise Neurological: Weakness, Incoordination Objective Exam Vital Signs Vital Signs Date Time Temp Pulse Resp B/P (MAP) Pulse Ox O2 Delivery O2 Flow Rate FiO2 09/22/19 16:15 36.9 76 16 140/67 (91) 95 Room Air Capillary Refill : Less Than 3 Seconds General Appearance: No Apparent Distress, WD/WN, Chronically ill HEENT: PERRL/EOMI, Normal ENT Inspection, Pharynx Normal Neck: Full Range of Motion, Normal Inspection, Non Tender, Supple, Carotid Bruit Respiratory: Chest Non Tender, Lungs Clear, Normal Breath Sounds, No Accessory Muscle Use, No Respiratory Distress Cardiovascular: No Edema, No Gallop, No JVD, No Murmur, Normal Peripheral Pulses, Irregularly Irregular Gastrointestinal: Normal Bowel Sounds, No Organomegaly, No Pulsatile Mass, Non Tender, Soft Back: Normal Inspection, No CVA Tenderness, No Vertebral Tenderness Extremity: Normal Capillary Refill, Normal Inspection, Normal Range of Motion, Non Tender, No Calf Tenderness, Pedal Edema Neurologic/Psychiatric: Alert, Oriented x3, Normal Mood/Affect, rounder and backer II-XII Norm as Tested, Aphasia, Facial Droop (left), Motor Weakness (left sided) Skin: Normal Color, Warm/Dry Lymphatic: No Adenopathy Results/Procedures Lab Patient resulted labs reviewed. FIM Transfers Therapy Code Descriptions/Definitions Functional [place] Measure: 0=Not Assessed/NA 4=Minimal Assistance 1=Total Assistance 5=Supervision or Setup 2=Maximal Assistance 6=Modified [place] 3=Moderate Assistance 7=Complete IndependenceSCALE: Activities may be completed with or without assistive devices. 4-Pqyfdzpcie-cnobbmh completes the activity by him/herself with no assistance from a helper. 5-Set-up or Clean-up Assistance-helper sets up or cleans up; patient completes activity. [place] assists only prior to or following the activity. 4-Supervision or Touching Assistance-helper provides verbal cues and/or touching/steadying and/or contact guard assistance as patient completes activity. Assistance may be provided throughout the activity or intermittently. 3-Partial/Moderate Assistance-helper does LESS THAN HALF the effort. [place] lifts, holds or supports trunk or limbs, but provides less than half the effort. 2-Substantial/Maximal Assistance-helper does MORE THAN HALF the effort. [place] lifts or holds trunk or limbs and provides more than half the effort. 0-Lxikdsamg-jrdjqs does ALL the effort. Patient does none of the effort to complete the activity. Or, the assistance of 2 or more helpers is required for the patient to complete the activity. If activity was not attempted, code reason: 7-Patient Refused. 9-Not Applicable-not attempted and the patient did not perform the activity before the current illness, exacerbation or injury. 10-Not Attempted due to Environmental Limitations-(lack of equipment, weather restraints, etc.). 88-Not Attempted due to Medical Conditions or Safety Concerns. Roll Left to Right (QC): 2 Sit to Lying (QC): 1 Sit to Stand (QC): 1 Chair/Qoo-kl-Ptzid Xfer(QC): 1 Car Transfer (QC): 1 Gait Training Does the Patient Walk?: No and Walking Goal NOT indicated Walk 10 feet (QC): 88 Walk 50 ft with 2 Turns(QC): 88 Walk 150 ft (QC): 88 Walking 10ft/uneven surface-QC: 88 Wheelchair Training Does the Pt Use a Wheelchair?: Yes Distance: 150'x2 Wheel 50 ft with 2 turns (QC): 2 (mod assist to guide chair.) Wheel 150 ft (QC): 1 Type of Wheelchair: Manual Stair Training 1 Step (curb) (QC): 88 4 Steps (QC): 88 12 Steps (QC): 88 Balance Picking up an Object (QC): 88 ADL-Treatment Eating (QC): 88 (See JAVA SUPPORT ENGINEER notes) Oral Hygiene (QC): 5 (s/u in w/c in front of sink. Pt able to take dentation out and completes packet opening with s/u and cues. ) Bathing Location: Chest, Abdomen, Perineal Area Shower/Bathe Self (QC): 1 (TD, Ax2 for bathing in bed. ) Upper Body Dressing (QC): 2 (Pt completes with max A : pt able to don R and o verhead, requires assist with L and AAROM of L UE to thread. Decreased problem solving with threading. ) Lower Body Dressing (QC): 1 (TD, max A x2 for rolling and attention to task.) On/Off Footwear (QC): 1 Toileting Hygiene (QC): 1 Toilet Transfer (QC): 88 (Using bedpan) Assessment/Plan Assessment and Plan Assess & Plan/Chief Complaint Assessment: CVA Left sided weakness Left sided neglect PEG tube status Dysphagia Aspiration hx with PNA CAD AF Coumadin treatment GIB 09/14/19 Plan: IRF protocol ST to work on dysphagia TF to be maintained Coumadin treatment Cardiology evaluation 09/13/19: Continue aggressive treatment Barium Swallow Monitor Hemoglobin 09/14/19: Give gentle IV fluids Increase INR with Coumadin with Lovenox bridge Barium swallow today 09/15/2019: Monitor GI bleed Hold Coumadin and Lovenox and aspirin Hold tube feedings Consult general surgery for endoscopies Maintain n.p.o. status due to aspiration risk 09/16/19: Monitor Hgb NPO Aspiration risk TF gently 09/17/19: No major changes Sleeping most of the time Stay off blood thinners due to second GI bleed 09/18/19: Insomnia treatment Continue aggressive physical therapy 09/19/19: Disposition will be discussed in team conference Tube feedings are tolerated well No more bloody stools Scrotum seems to be bleeding at times 09/19/19: Continue tube feedings of 1 can every 3 hours Sleeps most of the time No more bloody stools Aspirin was restarted Two GI bleeds in less than 2 weeks precludes restarting Coumadin 09/21/19: No more bloody stools Bowels are now light brown Coccyx has alevan to help heal 09/22/19: TF working well when using 1 can at a time No pain reported Continue therapy (1) CVA (cerebral vascular accident) (2) Atrial fibrillation with normal ventricular rate (3) CAD (coronary artery disease) (4) Stented coronary artery (5) Dysphagia (6) Left-sided weakness (7) At risk for aspiration (8) PEG (percutaneous endoscopic gastrostomy) status (9) On warfarin therapy (10) Left-sided neglect (11) Facial droop KENZIE MORENO DO Sep 22, 2019 06:52
[2019-09-22] MEDS: SENNA W/DOCUSATE (SENOKOT S) TABLET PO SCH ×2 (09:28→21:55)
[2019-09-22] MEDS: LACTOBACILLUS ACIDOPHILUS (PROBIOTIC) CAPSULE PEG SCH ×2 (09:28→21:54)
[2019-09-22] MEDS: meTOprolol TARTRATE 25 MG (LOPRESSOR) TABLET PO SCH ×2 (09:28→18:31)
[2019-09-22] MEDS: ASPIRIN 81 MG CHEW (CHILDREN'S ASA) PO SCH (09:28)
[2019-09-22] MEDS: PANTOPRAZOLE 2 MG/ML LIQUID 200 ML (PROTONIX) PEG SCH ×6 (09:33→21:55)
[2019-09-22] MEDS: DOCUSATE SODIUM 100 MG (COLACE) CAP PO SCH ×2 (09:34→21:54)
[2019-09-22] MEDS: polyethylene glycoL POWDER 17 GM (MIRALAX) PACK PO SCH ×2 (09:34→21:45)
--- NOTE | 2019-09-22 13:02 | Physical Therapy Daily Note ---
PT Daily Note-Current Subjective Pt laying L sidelying upon arrival. Pt is very close to rail with back so SIDE FRAMER asks pt if SIDE FRAMER can assist with repositioning. Pain Location: No Pain Reported Mental Status Patient Orientation: Person, Confused Transfers SCALE: Activities may be completed with or without assistive devices. 1-Qithvotjjf-fvumauz completes the activity by him/herself with no assistance from a helper. 5-Set-up or Clean-up Assistance-helper sets up or cleans up; patient completes activity. Sacul assists only prior to or following the activity. 4-Supervision or Touching Assistance-helper provides verbal cues and/or touching/steadying and/or contact guard assistance as patient completes activity. Assistance may be provided throughout the activity or intermittently. 3-Partial/Moderate Assistance-helper does LESS THAN HALF the effort. Sacul li fts, holds or supports trunk or limbs, but provides less than half the effort. 2-Substantial/Maximal Assistance-helper does MORE THAN HALF the effort. Sacul lifts or holds trunk or limbs and provides more than half the effort. 0-Eerjieihu-qwtqan does ALL the effort. Patient does none of the effort to complete the activity. Or, the assistance of 2 or more helpers is required for the patient to complete the activity. If activity was not attempted, code reason: 7-Patient Refused. 9-Not Applicable-not attempted and the patient did not perform the activity before the current illness, exacerbation or injury. 10-Not Attempted due to Environmental Limitations-(lack of equipment, weather restraints, etc.). 88-Not Attempted due to Medical Conditions or Safety Concerns. Roll Left & Right (QC): 2 Exercises Supine Ex: Ankle pumps, Quad Set, Rolling, Heel Slides, Straight leg raise, Hip abd/add Treatments Pt requires Max A for bed mobility including scooting & turning. SIDE FRAMER assists PERSONAL SECRETARY with changing brief. Pt resting at end of tx with all needs met, call light in hand. Assessment Current Status: Poor Progress Pt continues to want to lay on L side. Pt is repositioned away from bed rail before end of tx. PT Short Term Goals Short Term Goals Time Frame: Sep 19, 2019 Roll Left & Right: 2 Sit to lyin Lying to sitting on side of be: 2 Sit to stand: 2 Chair/itl-kg-kzkbi transfer: 2 Wheel 50ft w/2 turns: 2 Wheel 150 feet: 2 PT Ash Collector Goals Ash Collector Goals PT Mcfp Goals Time Frame: Oct 03, 2019 Roll Left & Right (QC): 3 Sit to Lying (QC): 3 Lying-Sitting on Side/Bed(QC): 3 Sit to Stand (QC): 3 Chair/Pbw-xz-Hjjvy Xfer(QC): 3 Toilet Transfer (QC): 3 Car Transfer (QC): 3 Does the Patient Walk: No and Walking Goal NOT indicated Walk 10 feet (QC): 88 Walk 50ft with 2 Turns (QC): 88 Walk 150 ft (QC): 88 Walking 10ft on Uneven Surface: 88 1 Step (curb) (QC): 88 4 Steps (QC): 88 12 Steps (QC): 88 Picking up an Object (QC): 88 Wheel 50 feet with 2 turns (QC: 3 Wheel 150 feet: 3 PT Plan Problem List Problem List: Activity Tolerance, Functional Strength, Safety, Transfer, Bed Mobility Treatment/Plan Treatment Plan: Continue Plan of Care Treatment Plan: Bed Mobility, Education, Functional Activity Aliyah, Functional Strength, Group Therapy, Gait, Safety, Therapeutic Exercise, Transfers Treatment Duration: Oct 03, 2019 Frequency: At least 5 of 7 days/Wk (IRF) Estimated Hrs Per Day: 1.5 hours per day Patient and/or Family Agrees t: Yes Safety Risks/Education Patient Education: Transfer Techniques, Correct Positioning, Safety Issues Teaching Recipient: Patient Teaching Methods: Discussion Response to Teaching: Reinforcement Needed Time/GCodes Time In: 1142 Time Out: 1200 Total Billed Treatment Time: 18 Total Billed Treatment 1, FA (18m) ANTHONY DELEON PTA Sep 22, 2019 13:02
--- NOTE | 2019-09-22 14:08 | Cardiology Progress Note ---
Cardiology SOAP Progress Note Subjective: No cardiac complaints. Objective: I&O/Vital Signs 09/22/19 09/22/19 06:00 08:26 Temp 37.1 Pulse 86 Resp 18 B/P (MAP) 109/53 (71) Pulse Ox 96 O2 Delivery Room Air Room Air 09/22/19 00:00 Intake Total 960 ml Balance 960 ml Constitutional: well-developed, well-nourished, other (Drowsy, awakens easily, oriented to self only) Respiratory: No accessory muscle use, No respiratory distress; chest expansion is symmetric, chest is bilaterally symmetric, lungs clear to auscultation Cardiovascular: regular rate-rhythm (EKG shows SR with PVC's); No JVD; S1 and S2, systolic murmur Gastrointestional: soft, audible bowel sounds, other (PEG tube in place) Extremities: no lower extremity edema bilateral Neurologic/Psychiatric: other (moves right extremities; does not move left upper or lower extremity) Skin: No rash on exposed areas, No ulcerations on exposed areas A/P: Assessment/Dx: Hematochezia on 09/15/19 (warfarin and ASA were held) being managed by Dr Simon and Dr Flores 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 Dias at [facility] Records from [facility] report h/o CVA x 3 (2008, 2013 x2) H/O PE in 2016 tx at [facility] Dysphagia - PEG tube in place HTN CAD - CABG x 4 vessel in February 2016 at [facility] by Dr. Regan - quadruple bypass with VILLATORO to LAD, saphenous vein graft to OM 1, saphenous vein T graft to D1, saphenous vein graft to LPDA. 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 Has been on warfarin H/O hematology w/u at [facility] which did not show hypercoagulable state H/O acute gangrenous cholecystitis for which he underwent cholecystectomy in July 2019 at [place], [place] Documented h/o prostate cancer Plan: Plan: General surgery has cleared the patient for antiplatelet therapy. Recommend starting the patient on aspirin. Defer starting Coumadin to Dr. Simon. Monitor labs Thank you for your consultation. Please call me if you have any questions. Cresencio Sweet MD, FACP, FACC, FSCAI, FHRS, CCDS Interventional Cardiology Cardiac Electrophysiology Vascular Medicine and Endovascular Interventions Miguel SWEET MD Sep 22, 2019 14:08
[2019-09-22 16:15] VITALS: BP 140/67
--- NOTE | 2019-09-22 19:12 | NUR ---
bedside report received from FELISHA DIAMOND, assume care of pt
--- NOTE | 2019-09-22 21:00 | NUR ---
gastric residual 3ml, tube feeding jevity 1.5 1 cartin with water flush 60ml prior & after tube feeding, tolerated well, pt will not leave hob elevated bed elevation 30 degrees locked
[2019-09-22] MEDS: ALPRAZolam 0.25 MG (XANAX) TAB PO PRN (21:54)
[2019-09-23] MEDS: SUCRALFATE 1 GM (CARAFATE) TAB PO SCH ×4 (00:20→18:31)
[2019-09-23 05:14] VITALS: BP 138/73
[2019-09-23] MEDS: LEVOTHYROXINE 75 MCG (LEVOTHROID) TABLET PO SCH (06:34)
[2019-09-23 09:16] VITALS: BP 129/62
[2019-09-23] MEDS: LACTOBACILLUS ACIDOPHILUS (PROBIOTIC) CAPSULE PEG SCH ×2 (09:18→20:42)
[2019-09-23] MEDS: SENNA W/DOCUSATE (SENOKOT S) TABLET PO SCH ×2 (09:18→20:14)
[2019-09-23] MEDS: DOCUSATE SODIUM 100 MG (COLACE) CAP PO SCH ×2 (09:18→20:13)
[2019-09-23] MEDS: ASPIRIN 81 MG CHEW (CHILDREN'S ASA) PO SCH (09:18)
[2019-09-23] MEDS: meTOprolol TARTRATE 25 MG (LOPRESSOR) TABLET PO SCH ×2 (09:19→18:31)
[2019-09-23] MEDS: polyethylene glycoL POWDER 17 GM (MIRALAX) PACK PO SCH ×2 (09:19→20:14)
[2019-09-23] MEDS: PANTOPRAZOLE 2 MG/ML LIQUID 200 ML (PROTONIX) PEG SCH ×6 (09:24→20:43)
--- NOTE | 2019-09-23 11:24 | PM&R Progress Note ---
Subjective HPI/CC On Admission Date Seen by Provider: Sep 23, 2019 Time Seen by Provider: 12:15 Subjective/Events-last exam 09/23/19: Tolerating TF well Lethargic is chronic No pain reported 09/22/19: BM yesterday Tolerating TF well No pain reported 09/21/19: Pt more talkative today No more bloody stools Two bowel movements last night were brown Decubitus ulcer on coccyx being monitored and managed 09/20/19: Pt sleeping most of the time Participating in therapy Tube feedings of one can every three hours is working a lot better for him, he i s tolerating it better No more bloody stools Cardiology restarted Aspirin but Coumadin will continue to be held because he has had two GI bleeds in the past two weeks and cant withstand a colonoscopy prep Very complex case 09/19/19: Pt sleeps most of the time Will discuss disposition, I doubt any recovery potential Overall needs probably a alf for long-term care 09/18/19: Insomnia is an issue Worked with PT today but seems to take a lot of naps during the day which disrupts the nighttime sleeping No pain is reported 09/17/19: Pt sleeps most of the time No major changes No bloody stools Off of Lovenox, Coumadin and Aspirin Second GI bleed in the last few weeks 09/16/19: No bloody stools today Hgb stable 10.3 Is not strong enough to undergo C-scope prep Dr Flores saw him this morning Holding ASA Lovenox Coumadin Had GI at [facility] also Decreased cognition 09/15/19: Patient had been doing pretty well when I rounded No more nausea and vomiting like yesterday Tube feeding was restarted slowly I stopped the Clinimix since tube feedings were started N.p.o. 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 Flores general surgery was consulted and checked hemoglobin and hematocrit. 09/14/19: Had nausea and vomiting all last night Needs IV fluids gently so we'll start that today Urinary incontinence noted No fecal incontinence Holding tube feedings for right now Barium swallow today at 11:30 INR 1.4 will increase dose and provide Lovenox 09/13/19: Patient doing pretty well today Sleeping currently Therapy worked with him today Modified Barium Swallow scheduled Hemoglobin 9.6 Disoriented at times Bowels moved yesterday Conferred with RN Reviewed Therapy notes Checked Meds and Labs Review of Systems General: Fatigue, Malaise Neurological: Weakness, Confusion Objective Exam Vital Signs Vital Signs Date Time Temp Pulse Resp B/P (MAP) Pulse Ox O2 Delivery O2 Flow Rate FiO2 09/23/19 17:52 36.2 85 20 131/88 (102) 96 Room Air Capillary Refill : Less Than 3 Seconds General Appearance: No Apparent Distress, WD/WN, Chronically ill HEENT: PERRL/EOMI, Normal ENT Inspection, Pharynx Normal Neck: Full Range of Motion, Normal Inspection, Non Tender, Supple, Carotid Bruit Respiratory: Chest Non Tender, Lungs Clear, Normal Breath Sounds, No Accessory Muscle Use, No Respiratory Distress Cardiovascular: No Edema, No Gallop, No JVD, No Murmur, Normal Peripheral Pulses, Irregularly Irregular Gastrointestinal: Normal Bowel Sounds, No Organomegaly, No Pulsatile Mass, Non Tender, Soft Back: Normal Inspection, No CVA Tenderness, No Vertebral Tenderness Extremity: Normal Capillary Refill, Normal Inspection, Normal Range of Motion, Non Tender, No Calf Tenderness, Pedal Edema Neurologic/Psychiatric: Alert, Oriented x3, Normal Mood/Affect, coil winder strap II-XII Norm as Tested, Aphasia, Facial Droop (left), Motor Weakness (left sided) Skin: Normal Color, Warm/Dry Lymphatic: No Adenopathy Results/Procedures Lab Patient resulted labs reviewed. FIM Transfers Therapy Code Descriptions/Definitions Functional [place] Measure: 0=Not Assessed/NA 4=Minimal Assistance 1=Total Assistance 5=Supervision or Setup 2=Maximal Assistance 6=Modified [place] 3=Moderate Assistance 7=Complete IndependenceSCALE: Activities may be completed with or without assistive devices. 8-Fgrsbtkehn-nugneex completes the activity by him/herself with no assistance from a helper. 5-Set-up or Clean-up Assistance-helper sets up or cleans up; patient completes activity. Jackson assists only prior to or following the activity. 4-Supervision or Touching Assistance-helper provides verbal cues and/or touching/steadying and/or contact guard assistance as patient completes activity. Assistance may be provided throughout the activity or intermittently. 3-Partial/Moderate Assistance-helper does LESS THAN HALF the effort. Jackson lifts, holds or supports trunk or limbs, but provides less than half the effort. 2-Substantial/Maximal Assistance-helper does MORE THAN HALF the effort. Jackson lifts or holds trunk or limbs and provides more than half the effort. 7-Owhahgwtb-gnfpxp does ALL the effort. Patient does none of the effort to complete the activity. Or, the assistance of 2 or more helpers is required for the patient to complete the activity. If activity was not attempted, code reason: 7-Patient Refused. 9-Not Applicable-not attempted and the patient did not perform the activity before the current illness, exacerbation or injury. 10-Not Attempted due to Environmental Limitations-(lack of equipment, weather restraints, etc.). 88-Not Attempted due to Medical Conditions or Safety Concerns. Roll Left to Right (QC): 2 Sit to Lying (QC): 1 Sit to Stand (QC): 1 Chair/Awi-eg-Uazio Xfer(QC): 1 Car Transfer (QC): 1 Gait Training Does the Patient Walk?: No and Walking Goal NOT indicated Walk 10 feet (QC): 88 Walk 50 ft with 2 Turns(QC): 88 Walk 150 ft (QC): 88 Walking 10ft/uneven surface-QC: 88 Wheelchair Training Does the Pt Use a Wheelchair?: Yes Distance: 150'x2 Wheel 50 ft with 2 turns (QC): 2 (mod assist to guide chair.) Wheel 150 ft (QC): 1 Type of Wheelchair: Manual Stair Training 1 Step (curb) (QC): 88 4 Steps (QC): 88 12 Steps (QC): 88 Balance Picking up an Object (QC): 88 ADL-Treatment Eating (QC): 88 (See AIRPLANE FLIGHT ATTENDANT SUPERVISOR notes) Oral Hygiene (QC): 5 (s/u in w/c in front of sink. Pt able to take dentation out and completes packet opening with s/u and cues. ) Bathing Location: Chest, Abdomen, Perineal Area Shower/Bathe Self (QC): 1 (TD, Ax2 for bathing in bed. ) Upper Body Dressing (QC): 2 (Pt completes with max A : pt able to don R and overhead, requires assist with L and AAROM of L UE to thread. Decreased problem solving with threading. ) Lower Body Dressing (QC): 1 (TD, max A x2 for rolling and attention to task.) On/Off Footwear (QC): 1 Toileting Hygiene (QC): 1 Toilet Transfer (QC): 88 (Using bedpan) Assessment/Plan Assessment and Plan Assess & Plan/Chief Complaint Assessment: CVA Left sided weakness Left sided neglect PEG tube status Dysphagia Aspiration hx with PNA CAD AF Coumadin treatment GIB 09/14/19 Plan: IRF protocol ST to work on dysphagia TF to be maintained Coumadin treatment Cardiology evaluation 09/13/19: Continue aggressive treatment Barium Swallow Monitor Hemoglobin 09/14/19: Give gentle IV fluids Increase INR with Coumadin with Lovenox bridge Barium swallow today 09/15/2019: Monitor GI bleed Hold Coumadin and Lovenox and aspirin Hold tube feedings Consult general surgery for endoscopies Maintain n.p.o. status due to aspiration risk 09/16/19: Monitor Hgb NPO Aspiration risk TF gently 09/17/19: No major changes Sleeping most of the time Stay off blood thinners due to second GI bleed 09/18/19: Insomnia treatment Continue aggressive physical therapy 09/19/19: Disposition will be discussed in team conference Tube feedings are tolerated well No more bloody stools Scrotum seems to be bleeding at times 09/19/19: Continue tube feedings of 1 can every 3 hours Sleeps most of the time No more bloody stools Aspirin was restarted Two GI bleeds in less than 2 weeks precludes restarting Coumadin 09/21/19: No more bloody stools Bowels are now light brown Coccyx has alevan to help heal 09/22/19: TF working well when using 1 can at a time No pain reported Continue therapy 09/23/19: Maintain TF for now 1 can at at time Fall risk IRF protocol (1) CVA (cerebral vascular accident) (2) Atrial fibrillation with normal ventricular rate (3) CAD (coronary artery disease) (4) Stented coronary artery (5) Dysphagia (6) Left-sided weakness (7) At risk for aspiration (8) PEG (percutaneous endoscopic gastrostomy) status (9) On warfarin therapy (10) Left-sided neglect (11) Facial droop KENZIE MORENO DO Sep 23, 2019 11:24
--- NOTE | 2019-09-23 14:52 | Cardiology Progress Note ---
Cardiology SOAP Progress Note Subjective: Denies any active cardiac complaints. Objective: I&O/Vital Signs 09/23/19 09/23/19 09/23/19 05:14 09:00 09:16 Temp 36.8 Pulse 86 83 Resp 20 B/P (MAP) 138/73 (94) 129/62 (84) Pulse Ox 93 98 O2 Delivery Room Air Room Air Room Air 09/23/19 00:00 Intake Total 1548 ml Balance 1548 ml Constitutional: well-developed, well-nourished, other (Drowsy, awakens easily, oriented to self only) Respiratory: No accessory muscle use, No respiratory distress; chest expansion is symmetric, chest is bilaterally symmetric, lungs clear to auscultation Cardiovascular: regular rate-rhythm (EKG shows SR with PVC's); No JVD; S1 and S2, systolic murmur Gastrointestional: soft, audible bowel sounds, other (PEG tube in place) Extremities: no lower extremity edema bilateral Neurologic/Psychiatric: other (moves right extremities; does not move left upper or lower extremity) Skin: No rash on exposed areas, No ulcerations on exposed areas A/P: Assessment/Dx: Hematochezia on 09/15/19 (warfarin and ASA were held) being managed by Dr Simon and Dr Flores 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 Dias at [facility] Records from [facility] report h/o CVA x 3 (2008, 2013 x2) H/O PE in 2017 tx at [facility] Dysphagia - PEG tube in place HTN CAD - CABG x 4 vessel in February 2016 at [facility] by Dr. Regan - quadruple bypass with VILLATORO to LAD, saphenous vein graft to OM 1, saphenous vein T graft to D1, saphenous vein graft to LPDA. 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 Has been on warfarin H/O hematology w/u at [facility] which did not show hypercoagulable state H/O acute gangrenous cholecystitis for which he underwent cholecystectomy in July 2019 at [place], [place] Documented h/o prostate cancer Plan: Plan: General surgery has cleared the patient for antiplatelet therapy. On aspirin. Patient is also on Coumadin. Monitor labs Thank you for your consultation. Please call me if you have any questions. Cresencio Sweet MD, FACP, FACC, FSCAI, FHRS, CCDS Interventional Cardiology Cardiac Electrophysiology Vascular Medicine and Endovascular Interventions Miguel SWEET MD Sep 23, 2019 14:51
--- NOTE | 2019-09-23 16:08 | NUR ---
PT IS SLEEPING COMFORTABLY. PT IS IN NO RESPIRATORY DISTRESS AT THIS TIME Addendum: 09/23/19 at 1610 by ARA NESBITT RT Amended: Links added.
[2019-09-23 17:52] VITALS: BP 131/88
--- NOTE | 2019-09-23 19:00 | NUR ---
DR. GARCÍA NOTIFIED THAT ONE SUTURE HAS BEEN PULLED FROM PEG TUBE. DR. GARCÍA SAID HE WOULD LOOK AT TOMORROW AND SHOULD BE FINE.
[2019-09-24] MEDS: SUCRALFATE 1 GM (CARAFATE) TAB PO SCH ×4 (00:57→18:20)
[2019-09-24 05:01] VITALS: BP 125/69
[2019-09-24 06:02] LABS: BASOPHILS # (AUTO) 0.1 10^3/uL (0.0-0.1); BASOPHILS % (AUTO) 1 % (0-10); EOSINOPHILS # (AUTO) 0.3 10^3/uL (0.0-0.3); EOSINOPHILS % (AUTO) 4 % (0-10); HEMATOCRIT 35 % (40-54); HEMOGLOBIN 11.1 G/DL (13.3-17.7); LYMPHOCYTES # (AUTO) 1.4 X 10^3 (1.0-4.0); LYMPHOCYTES % (AUTO) 16 % (12-44); MEAN CORPUSCULAR HEMOGLOBIN 27 PG (25-34); MEAN CORPUSCULAR HGB CONC 31 G/DL (32-36); MEAN CORPUSCULAR VOLUME 85 FL (80-99); MEAN PLATELET VOLUME 11.2 FL (7.4-10.4); MONOCYTES # (AUTO) 0.8 X 10^3 (0.0-1.0); MONOCYTES % (AUTO) 9 % (0-12); NEUTROPHILS # (AUTO) 6.2 X 10^3 (1.8-7.8); NEUTROPHILS % (AUTO) 71 % (42-75); PLATELET COUNT 298 10^3/uL (130-400); RED CELL DISTRIBUTION WIDTH 15.9 % (10.0-14.5); WHITE BLOOD COUNT 8.7 10^3/uL (4.3-11.0)
[2019-09-24] MEDS: LEVOTHYROXINE 75 MCG (LEVOTHROID) TABLET PO SCH (06:09)
[2019-09-24 06:28] LABS: ALANINE AMINOTRANSFERASE 26 U/L (0-55); ALBUMIN 3.5 GM/DL (3.2-4.5); ALKALINE PHOSPHATASE 82 U/L (40-136); BILIRUBIN,TOTAL 0.4 MG/DL (0.1-1.0); BUN/CREATININE RATIO 18; CALCIUM 9.4 MG/DL (8.5-10.1); CARBON DIOXIDE 26 MMOL/L (21-32); CHLORIDE 106 MMOL/L (98-107); CREATININE SERUM 0.92 MG/DL (0.60-1.30); GFR ESTIMATED > 60; GLUCOSE 96 MG/DL (70-105); POTASSIUM 4.4 MMOL/L (3.6-5.0); SODIUM 139 MMOL/L (135-145); TOTAL PROTEIN 6.3 GM/DL (6.4-8.2)
[2019-09-24] MEDS: polyethylene glycoL POWDER 17 GM (MIRALAX) PACK PO SCH ×2 (08:24→20:38)
[2019-09-24] MEDS: DOCUSATE SODIUM 100 MG (COLACE) CAP PO SCH ×2 (08:24→20:38)
[2019-09-24] MEDS: SENNA W/DOCUSATE (SENOKOT S) TABLET PO SCH ×2 (08:24→20:39)
[2019-09-24] MEDS: SCOPOLAMINE PATCH REMOVAL TP SCH (08:59)
[2019-09-24] MEDS: SCOPOLAMINE 1.5 MG (TRANSDERM-SCOP) PATCH TD SCH (08:59)
[2019-09-24] MEDS: ASPIRIN 81 MG CHEW (CHILDREN'S ASA) PO SCH (08:59)
[2019-09-24] MEDS: meTOprolol TARTRATE 25 MG (LOPRESSOR) TABLET PO SCH ×3 (08:59→18:14)
[2019-09-24] MEDS: LACTOBACILLUS ACIDOPHILUS (PROBIOTIC) CAPSULE PEG SCH ×2 (08:59→20:32)
[2019-09-24] MEDS: PANTOPRAZOLE 2 MG/ML LIQUID 200 ML (PROTONIX) PEG SCH ×6 (09:06→20:50)
--- NOTE | 2019-09-24 09:29 | NUR ---
Called to gym by therapy. Pt became unresponsive with standing and became responsive when sat back in w/c. B/P 91/60 and increased to 108/56 after a few minutes. Denies pain or distress, n/v. HRR Dr Simon here and notified. To hold lopressor today. B/P this am was 125/70. Will cont to monitor. Therapy to put pt back to bed. Call light in reach.
--- NOTE | 2019-09-24 10:05 | Physical Therapy Daily Note ---
PT Daily Note-Current Subjective Patient in bed pre tx, agrees to PT, has unrated pain in left hip. Will be co- treating with OT due to poor patient mobility, strength, endurance, sitting and standing balance, pushers syndrome, left hemiparesis, the need to coordinate UE and LE during activity. Appearance Patient in bed post tx, will continue with OT Mental Status Patient Orientation: Person, Unable to Assess, Mumbles Attachments: PEG Tube Transfers SCALE: Activities may be completed with or without assistive devices. 7-Axvhvggmvd-tsshkxu completes the activity by him/herself with no assistance from a helper. 5-Set-up or Clean-up Assistance-helper sets up or cleans up; patient completes activity. Glynn assists only prior to or following the activity. 4-Supervision or Touching Assistance-helper provides verbal cues and/or touching/steadying and/or contact guard assistance as patient completes activity. Assistance may be provided throughout the activity or intermittently. 3-Partial/Moderate Assistance-helper does LESS THAN HALF the effort. Glynn lifts, holds or supports trunk or limbs, but provides less than half the effort. 2-Substantial/Maximal Assistance-helper does MORE THAN HALF the effort. Glynn lifts or holds trunk or limbs and provides more than half the effort. 6-Uoofptkcw-gejsjv does ALL the effort. Patient does none of the effort to complete the activity. Or, the assistance of 2 or more helpers is required for the patient to complete the activity. If activity was not attempted, code reason: 7-Patient Refused. 9-Not Applicable-not attempted and the patient did not perform the activity before the current illness, exacerbation or injury. 10-Not Attempted due to Environmental Limitations-(lack of equipment, weather restraints, etc.). 88-Not Attempted due to Medical Conditions or Safety Concerns. Roll Left & Right (QC): 3 Lying to Sitting/Side of Bed(Q: 2 Sit to Stand (QC): 2 Chair/Vxp-us-Xjnxt Xfer(QC): 2 Patient needs brief changed, roll to each side and clean and change brief, put on shorts, supine to sit with max assist, stand pivot with max assist into WC, practice propelling WC to therapy gym max assist (sometimes resists with right leg, sometimes assists with right leg and right arm), practice standing in parallel bars, patient is really having trouble standing up straight, get standing frame and stand patient, while in it patient starts breathing very deeply, eyes go wide, immediately sit patient back down in WC, recliner WC and put legs on chair, take BP and notify nurse (O2 98%, 91/60, 97/57, 108/56, 9 ), patient recovers, take him back to his room and stand pivot back to bed and lay down with max assist. Treatments PT worked on bed mobility and transfers, rolling, changing brief and cleaning and dressing, standing, OT worked on UE positioning and safety, assist with transfers and standing. Assessment Current Status: Poor Progress tolerated standing poorly PT Short Term Goals Short Term Goals Time Frame: Sep 19, 2019 Roll Left & Right: 2 Sit to lyin Lying to sitting on side of be: 2 Sit to stand: 2 Chair/jol-em-aembf transfer: 2 Wheel 50ft w/2 turns: 2 Wheel 150 feet: 2 PT Dressmaker Or Tailor Goals Dressmaker Or Tailor Goals PT Intermediate Goals Time Frame: Oct 03, 2019 Roll Left & Right (QC): 3 Sit to Lying (QC): 3 Lying-Sitting on Side/Bed(QC): 3 Sit to Stand (QC): 3 Chair/Ttx-fc-Vqhyw Xfer(QC): 3 Toilet Transfer (QC): 3 Car Transfer (QC): 3 Does the Patient Walk: No and Walking Goal NOT indicated Walk 10 feet (QC): 88 Walk 50ft with 2 Turns (QC): 88 Walk 150 ft (QC): 88 Walking 10ft on Uneven Surface: 88 1 Step (curb) (QC): 88 4 Steps (QC): 88 12 Steps (QC): 88 Picking up an Object (QC): 88 Wheel 50 feet with 2 turns (QC: 3 Wheel 150 feet: 3 PT Plan Problem List Problem List: Activity Tolerance, Functional Strength, Safety, Balance, Gait, Transfer, Bed Mobility, ROM Treatment/Plan Treatment Plan: Continue Plan of Care Treatment Plan: Bed Mobility, Education, Functional Activity Aliyah, Functional Strength, Group Therapy, Gait, Safety, Therapeutic Exercise, Transfers Treatment Duration: Oct 03, 2019 Frequency: At least 5 of 7 days/Wk (IRF) Estimated Hrs Per Day: 1.5 hours per day Patient and/or Family Agrees t: Yes Safety Risks/Education Patient Education: Correct Positioning, W/C Management, Safety Issues Teaching Recipient: Patient Teaching Methods: Demonstration, Discussion Response to Teaching: Reinforcement Needed Time/GCodes Time In: 844 Time Out: 929 Total Billed Treatment Time: 45 Total Billed Treatment 1 visit FA 45' co-treated with OT for 45' RUY MCGRATH PT Sep 24, 2019 10:05
--- NOTE | 2019-09-24 10:50 | Speech Therapy Daily Note ---
Speech Daily Progress Note Subjective Date Seen by Provider: Sep 24, 2019 Time Seen by Provider: 00:30 Patient seen in his room form ST session. Patient sleepy per usual, however he did participate with frequent verbal/tactile prompts. Objective Patient completed a series of q/a related to safety for his daily needs at 75% with mod to max cues. Assessment Assessment Current Status: Fair Progress Treatment Plan Continue Plan of Care Speech Short Term Goals Short Term Goals Short Term Goals 1) Patient will complete expressive language exercises at 90% or greater with minimal cues. 2) Patient will complete OME x10 with 90% or greater with minimal cues. 3) Patient will complete oral trials with 90% or greater without s/s of aspiration. Speech Furnace And Wash Equipment Operator Goals Furnace And Wash Equipment Operator Goals Patient will improve speech production for effective communication of his wants/needs. Patient will maintain adequate nutrition/hydration via PEG and/or oral intake. Speech-Plan Patient/Family Goals Patient/Family Goals: Patient's family plans on his return to home, however due to his medical needs this placement may not be the best under these circumstances. 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 Time Speech Therapy Time In: 10:00 Speech Therapy Time Out: 10:30 Total Billed Time: 30 Billed Treatment Time 1VONDA BETHANIA ST Sep 24, 2019 10:50
--- NOTE | 2019-09-24 10:53 | Progress Note ---
HAYDEN VELA MED STUDENT 09/24/19 1053: Progress Note 79 yo male presents with left-sided hemiplegia, due to CVA. Onset of symptoms was 08/02/19. Warfarin reversal for cholecystectomy performed on 07/31/19. Therapy Progression pt stated that therapy sessions have been going poorly. When asked why, he stated that he is the problem. pt stated that he has started gaining a little bit of movement in his L arm and L leg Goals patient unable to communicate any goals at this time. Prior level of function pt able to ambulate without assistance pt able to shower on own pt able to eat on own pt able to toilet on own pt resides with spouse DIANA SIMON DO 09/24/192032: Supervisory-Addendum Brief Verification & Attestation Participated in pt care: history, MDM, physical Personally performed: exam, history, MDM, supervision of care Care discussed with: Medical Student Procedures: n/a Results interpretation: Verified all documentation Verification and Attestation of Medical Student E/M Service A medical student performed and documented this service in my presence. I reviewed and verified all information documented by the medical student and made modifications to such information, when appropriate. I personally performed the physical exam and medical decision making. Diana Simon, Sep 24, 2019,20:33 HAYDEN VELA MED STUDENT Sep 24, 2019 10:53 DIANA SIMON DO Sep 24, 2019 20:33
--- NOTE | 2019-09-24 11:24 | Occupational Ther Daily Note ---
OT Current Status-Daily Note Subjective Pt alert sitting in w/c. PT in room with pt. Pt progressing with verbal communication. During treatment session, pt's BP decreased, change in breathing and dilation of eyes. Call nrsg, laid pt flat in w/c with B LE elevated, see nrsg notes for BP. BP when back in room in bed, 103/36, continued to monitor BP increased to 117/61. Nrsg aware of medical issues. Mental Status/Objective Patient Orientation: Person Attachments: PEG Tube ADL-Treatment 1st treatment [id number] Pt incontinent of bowel and bladder. Assist x2 for lower body dressing and toileting hygiene in supine. PROM to L UE, tone noted no intentional movement noted. After therapy, pt lying in room with call light/phone in reach. Physician in room. All needs met in room. 2nd treatment [id number] Pt working on upper body dressing and bed mobility. Pt requires assist x2 to complete dressing and bed mobility. Pt is reaching with R UE to pull to L side though requires assistance to stay on side while cleansing is complete. Assist x2 to roll toward L side and stay there. After session, pt lying in bed with call light/phone in reach. All needs met in room. Therapy Code Descriptions/Definitions Functional [place] Measure: 0=Not Assessed/NA 4=Minimal Assistance 1=Total Assistance 5=Supervision or Setup 2=Maximal Assistance 6=Modified [place] 3=Moderate Assistance 7=Complete IndependenceSCALE: Activities may be completed with or without assistive devices. 6-Vijomukwql-gnuelrd completes the activity by him/herself with no assistance from a helper. 5-Set-up or Clean-up Assistance-helper sets up or cleans up; patient completes activity. [place] assists only prior to or following the activity. 4-Supervision or Touching Assistance-helper provides verbal cues and/or touching/steadying and/or contact guard assistance as patient completes activity. Assistance may be provided throughout the activity or intermittently. 3-Partial/Moderate Assistance-helper does LESS THAN HALF the effort. [place] lifts, holds or supports trunk or limbs, but provides less than half the effort. 2-Substantial/Maximal Assistance-helper does MORE THAN HALF the effort. [place] lifts or holds trunk or limbs and provides more than half the effort. 2-Luglvmzqn-xkshly does ALL the effort. Patient does none of the effort to c omplete the activity. Or, the assistance of 2 or more helpers is required for the patient to complete the activity. If activity was not attempted, code reason: 7-Patient Refused. 9-Not Applicable-not attempted and the patient did not perform the activity before the current illness, exacerbation or injury. 10-Not Attempted due to Environmental Limitations-(lack of equipment, weather restraints, etc.). 88-Not Attempted due to Medical Conditions or Safety Concerns. Lower Body Dressing (QC): 1 On/Off Footwear: 2 Toileting Hygiene (QC): 1 Other Treatment PT/OT co-treat ([id number]), skills of 2 clinicians required for neuromuscular retraining for mobility, ADLs, standing and transfers. PT working on transfers, standing, and mobility. OT working on placement of L UE and LE during standing and transfers, ADLs and functional mobility. Supine <--> EOB assist x2, assist x2 for SPT. Pt requires verbal and physical cues for w/c mobility. Attempted to principal librarian parallel bars with assist x2. Attempted to use standing frame to work on standing, pt had medical episode with decreased BP. OT Short Term Goals Short Term Goals Time Frame: Sep 19, 2019 Shower/bathe self: 2 Upper body dressin Lower body dressin OT Operations Recruiter Goals Operations Recruiter Goals Time Frame: Oct 03, 2019 Eating (QC): 4 Oral Hygiene (QC): 4 Toileting Hygiene (QC): 3 Shower/Bathe Self (QC): 3 Upper Body Dressing (QC): 3 Lower Body Dressing (QC): 2 On/Off Footwear (QC): 2 Additional Goals: 1-Demonstrate ADL Tasks, 2-Verbalize Understanding, 3- ImproveStrength/Aliyah 1=Demonstrate adherence to instructed precautions during ADL tasks. 2=Patient will verbalize/demonstrate understanding of assistive devices/modifications for ADL. 3=Patient will improve strength/tolerance for activity to enable patient to perform ADL's. OT Education/Plan Problem List/Assessment Assessment: Decreased Activ Tolerance, Decreased Safety Aware, Decreased UE Strength, Dependent Transfers, Impaired Bed Mobility, Impaired Cognition, Impaired Coordination, Impaired Funct Balance, Impaired I ADL's, Impaired Self- Care Skills, Restricted Funct UE ROM, Visual-Perceptual Deficit Discharge Recommendations Plan/Recommendations: Continue POC Treatment Plan/Plan of Care Patient would benefit from OT for education, treatment and training to promote independence in ADL's, mobility, safety and/or upper extremity function for ADL's. Plan of Care: ADL Retraining, Caregiver Training, Functional Mobility, Group Exercise/Act as Ind, Orthotic Fitting/Training, UE Funct Exercise/Act, UE Neuromus Re-Ed/Coord, Visual/Perceptual Retrain, W/C Management Training Treatment Duration: Oct 03, 2019 Frequency: At least 5 of 7 days/Wk (IRF) Estimated Hrs Per Day: 1.5 hours per day Agreement: Yes Rehab Potential: Poor Time/GCodes Start Time: 09:00 ([id number], 1st treatment) Stop Time: 11:50 ([id number], 2nd treatment) Total Time Billed (hr/min): 80 Billed Treatment Time 1 visit-ADL 2 (30 min) NM 2 (30 min) co-treat with PT [id number] (45 min) individual 15 min ([id number]), 1 visit-ADL 1 (20 min) CALLIE LARIOS Sep 24, 2019 11:24
--- NOTE | 2019-09-24 11:25 | Physical Therapy Daily Note ---
PT Daily Note-Current Subjective Patient in bed pre tx, agrees to PT, has no complaints of pain. Notice patient's feeding tube has been leaking, nursing notified. Appearance Patient in bed post tx, with nurse call, phone, tray, all needs met. Mental Status Patient Orientation: Person, Unable to Assess, Non-Verbal/Aphasic, [place] Attachments: PEG Tube Transfers SCALE: Activities may be completed with or without assistive devices. 2-Iuhxxnilbk-xbovnwy completes the activity by him/herself with no assistance from a helper. 5-Set-up or Clean-up Assistance-helper sets up or cleans up; patient completes activity. [place] assists only prior to or following the activity. 4-Supervision or Touching Assistance-helper provides verbal cues and/or touching/steadying and/or contact guard assistance as patient completes activity. Assistance may be provided throughout the activity or intermittently. 3-Partial/Moderate Assistance-helper does LESS THAN HALF the effort. [place] lifts, holds or supports trunk or limbs, but provides less than half the effort. 2-Substantial/Maximal Assistance-helper does MORE THAN HALF the effort. [place] lifts or holds trunk or limbs and provides more than half the effort. 3-Jsltfwlgs-idcnwj does ALL the effort. Patient does none of the effort to complete the activity. Or, the assistance of 2 or more helpers is required for the patient to complete the activity. If activity was not attempted, code reason: 7-Patient Refused. 9-Not Applicable-not attempted and the patient did not perform the activity before the current illness, exacerbation or injury. 10-Not Attempted due to Environmental Limitations-(lack of equipment, weather restraints, etc.). 88-Not Attempted due to Medical Conditions or Safety Concerns. Exercises Supine Ex: Ankle pumps, Heel Slides, Short Arc Quads, Straight leg raise, Hip abd/add Supine Reps: 20 (AAROM with most, patient needs tactile cues) LLE stretching/PROM in all planes Treatments ROM BLE Assessment Current Status: Poor Progress Patient resists extension of hips just flat on the bed, he says it is tight but will not keep them on the bed to stretch them out. PT Short Term Goals Short Term Goals Time Frame: Sep 19, 2019 Roll Left & Right: 2 Sit to lyin Lying to sitting on side of be: 2 Sit to stand: 2 Chair/xob-dv-jmlya transfer: 2 Wheel 50ft w/2 turns: 2 Wheel 150 feet: 2 PT Care Home Goals Instrument Sterilizer Goals PT Care Home Goals Time Frame: Oct 03, 2019 Roll Left & Right (QC): 3 Sit to Lying (QC): 3 Lying-Sitting on Side/Bed(QC): 3 Sit to Stand (QC): 3 Chair/Scl-kj-Tpzub Xfer(QC): 3 Toilet Transfer (QC): 3 Car Transfer (QC): 3 Does the Patient Walk: No and Walking Goal NOT indicated Walk 10 feet (QC): 88 Walk 50ft with 2 Turns (QC): 88 Walk 150 ft (QC): 88 Walking 10ft on Uneven Surface: 88 1 Step (curb) (QC): 88 4 Steps (QC): 88 12 Steps (QC): 88 Picking up an Object (QC): 88 Wheel 50 feet with 2 turns (QC: 3 Wheel 150 feet: 3 PT Plan Problem List Problem List: Activity Tolerance, Functional Strength, Safety, Balance, Gait, Transfer, Bed Mobility, ROM Treatment/Plan Treatment Plan: Continue Plan of Care Treatment Plan: Bed Mobility, Education, Functional Activity Aliyah, Functional Strength, Group Therapy, Gait, Safety, Therapeutic Exercise, Transfers Treatment Duration: Oct 03, 2019 Frequency: At least 5 of 7 days/Wk (IRF) Estimated Hrs Per Day: 1.5 hours per day Patient and/or Family Agrees t: Yes Safety Risks/Education Patient Education: Correct Positioning, Safety Issues Teaching Recipient: Patient Teaching Methods: Demonstration, Discussion Response to Teaching: Reinforcement Needed Time/GCodes Time In: 1100 Time Out: 1130 Total Billed Treatment Time: 30 Total Billed Treatment 1 visit EX 30' RUY MCGRATH PT Sep 24, 2019 11:25
--- NOTE | 2019-09-24 11:30 | PM&R Progress Note ---
Subjective HPI/CC On Admission Date Seen by Provider: Sep 24, 2019 Time Seen by Provider: 10:00 Subjective/Events-last exam 09/24/19: Holding Lopressor due to orthostasis during PT today BP 125/70 after orthostasis episode resolved No nausea or vomiting Regular rhythm on exam 09/23/19: Tolerating TF well Lethargic is chronic No pain reported 09/22/19: BM yesterday Tolerating TF well No pain reported 09/21/19: Pt more talkative today No more bloody stools Two bowel movements last night were brown Decubitus ulcer on coccyx being monitored and managed 09/20/19: Pt sleeping most of the time Participating in therapy Tube feedings of one can every three hours is working a lot better for him, he is tolerating it better No more bloody stools Cardiology restarted Aspirin but Coumadin will continue to be held because he has had two GI bleeds in the past two weeks and cant withstand a colonoscopy p rep Very complex case 09/19/19: Pt sleeps most of the time Will discuss disposition, I doubt any recovery potential Overall needs probably a fdc for long-term care 09/18/19: Insomnia is an issue Worked with PT today but seems to take a lot of naps during the day which disrupts the nighttime sleeping No pain is reported 09/17/19: Pt sleeps most of the time No major changes No bloody stools Off of Lovenox, Coumadin and Aspirin Second GI bleed in the last few weeks 09/16/19: No bloody stools today Hgb stable 10.3 Is not strong enough to undergo C-scope prep Dr Flores saw him this morning Holding ASA Lovenox Coumadin Had GI at [place] also Decreased cognition 09/15/19: Patient had been doing pretty well when I rounded No more nausea and vomiting like yesterday Tube feeding was restarted slowly I stopped the Clinimix since tube feedings were started N.p.o. 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 Flores general surgery was consulted and checked hemoglobin and hematocrit. 09/14/19: Had nausea and vomiting all last night Needs IV fluids gently so we'll start that today Urinary incontinence noted No fecal incontinence Holding tube feedings for right now Barium swallow today at 11:30 INR 1.4 will increase dose and provide Lovenox 09/13/19: Patient doing pretty well today Sleeping currently Therapy worked with him today Modified Barium Swallow scheduled Hemoglobin 9.6 Disoriented at times Bowels moved yesterday Conferred with RN Reviewed Therapy notes Checked Meds and Labs Review of Systems General: Fatigue, Malaise Neurological: Weakness Objective Exam Vital Signs Vital Signs Date Time Temp Pulse Resp B/P (MAP) Pulse Ox O2 Delivery O2 Flow Rate FiO2 09/24/19 18:00 36.7 91 18 100/60 (73) 97 Room Air Capillary Refill : Less Than 3 SecondsLess Than 3 Seconds General Appearance: No Apparent Distress, WD/WN, Chronically ill HEENT: PERRL/EOMI, Normal ENT Inspection, Pharynx Normal Neck: Full Range of Motion, Normal Inspection, Non Tender, Supple, Carotid Bruit Respiratory: Chest Non Tender, Lungs Clear, Normal Breath Sounds, No Accessory Muscle Use, No Respiratory Distress Cardiovascular: No Edema, No Gallop, No JVD, No Murmur, Normal Peripheral Pulses, Irregularly Irregular Gastrointestinal: Normal Bowel Sounds, No Organomegaly, No Pulsatile Mass, Non Tender, Soft Back: Normal Inspection, No CVA Tenderness, No Vertebral Tenderness Extremity: Normal Capillary Refill, Normal Inspection, Normal Range of Motion, Non Tender, No Calf Tenderness, Pedal Edema Neurologic/Psychiatric: Alert, Oriented x3, Normal Mood/Affect, linux 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 FIM Transfers Therapy Code Descriptions/Definitions Functional [place] Measure: 0=Not Assessed/NA 4=Minimal Assistance 1=Total Assistance 5=Supervision or Setup 2=Maximal Assistance 6=Modified [place] 3=Moderate Assistance 7=Complete IndependenceSCALE: Activities may be completed with or without assistive devices. 0-Iuupywvtvb-vanpaiy completes the activity by him/herself with no assistance from a helper. 5-Set-up or Clean-up Assistance-helper sets up or cleans up; patient completes activity. [place] assists only prior to or following the activity. 4-Supervision or Touching Assistance-helper provides verbal cues and/or touching/steadying and/or contact guard assistance as patient completes activity. Assistance may be provided throughout the activity or intermittently. 3-Partial/Moderate Assistance-helper does LESS THAN HALF the effort. [place] lifts, holds or supports trunk or limbs, but provides less than half the effort. 2-Substantial/Maximal Assistance-helper does MORE THAN HALF the effort. [place] lifts or holds trunk or limbs and provides more than half the effort. 5-Gcbibsroq-iphyfx does ALL the effort. Patient does none of the effort to comp lete the activity. Or, the assistance of 2 or more helpers is required for the patient to complete the activity. If activity was not attempted, code reason: 7-Patient Refused. 9-Not Applicable-not attempted and the patient did not perform the activity before the current illness, exacerbation or injury. 10-Not Attempted due to Environmental Limitations-(lack of equipment, weather restraints, etc.). 88-Not Attempted due to Medical Conditions or Safety Concerns. Roll Left to Right (QC): 3 Sit to Lying (QC): 1 Sit to Stand (QC): 2 Chair/Fsy-qx-Mipde Xfer(QC): 2 Car Transfer (QC): 1 Gait Training Does the Patient Walk?: No and Walking Goal NOT indicated Walk 10 feet (QC): 88 Walk 50 ft with 2 Turns(QC): 88 Walk 150 ft (QC): 88 Walking 10ft/uneven surface-QC: 88 Wheelchair Training Does the Pt Use a Wheelchair?: Yes Distance: 150'x2 Wheel 50 ft with 2 turns (QC): 2 (mod assist to guide chair.) Wheel 150 ft (QC): 1 Type of Wheelchair: Manual Stair Training 1 Step (curb) (QC): 88 4 Steps (QC): 88 12 Steps (QC): 88 Balance Picking up an Object (QC): 88 ADL-Treatment Eating (QC): 88 (See FIRE CAPTAIN notes) Oral Hygiene (QC): 5 (s/u in w/c in front of sink. Pt able to take dentation out and completes packet opening with s/u and cues. ) Bathing Location: Chest, Abdomen, Perineal Area Shower/Bathe Self (QC): 1 (TD, Ax2 for bathing in bed. ) Upper Body Dressing (QC): 2 (Pt completes with max A : pt able to don R and overhead, requires assist with L and AAROM of L UE to thread. Decreased problem solving with threading. ) Lower Body Dressing (QC): 1 (TD, max A x2 for rolling and attention to task.) On/Off Footwear (QC): 1 Toileting Hygiene (QC): 1 Toilet Transfer (QC): 88 (Using bedpan) Assessment/Plan Assessment and Plan Assess & Plan/Chief Complaint Assessment: CVA Left sided weakness Left sided neglect PEG tube status Dysphagia Aspiration hx with PNA CAD AF Coumadin treatment GIB 09/14/19 Plan: IRF protocol ST to work on dysphagia TF to be maintained Coumadin treatment Cardiology evaluation 09/13/19: Continue aggressive treatment Barium Swallow Monitor Hemoglobin 09/14/19: Give gentle IV fluids Increase INR with Coumadin with Lovenox bridge Barium swallow today 09/15/2019: Monitor GI bleed Hold Coumadin and Lovenox and aspirin Hold tube feedings Consult general surgery for endoscopies Maintain n.p.o. status due to aspiration risk 09/16/19: Monitor Hgb NPO Aspiration risk TF gently 09/17/19: No major changes Sleeping most of the time Stay off blood thinners due to second GI bleed 09/18/19: Insomnia treatment Continue aggressive physical therapy 09/19/19: Disposition will be discussed in team conference Tube feedings are tolerated well No more bloody stools Scrotum seems to be bleeding at times 09/19/19: Continue tube feedings of 1 can every 3 hours Sleeps most of the time No more bloody stools Aspirin was restarted Two GI bleeds in less than 2 weeks precludes restarting Coumadin 09/21/19: No more bloody stools Bowels are now light brown Coccyx has alevan to help heal 09/22/19: TF working well when using 1 can at a time No pain reported Continue therapy 09/23/19: Maintain TF for now 1 can at at time Fall risk IRF protocol 09/24/19: Monitor orthostasis Monitor hemoglobin Appreciate Dietary input (1) CVA (cerebral vascular accident) (2) Atrial fibrillation with normal ventricular rate (3) CAD (coronary artery disease) (4) Stented coronary artery (5) Dysphagia (6) Left-sided weakness (7) At risk for aspiration (8) PEG (percutaneous endoscopic gastrostomy) status (9) On warfarin therapy (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
--- NOTE | 2019-09-24 16:13 | Cardiology Progress Note ---
Cardiology SOAP Progress Note Subjective: No cardiac complaints. Objective: I&O/Vital Signs 09/24/19 09/24/19 09/24/19 05:01 07:22 09:00 Temp 36.6 Pulse 82 Resp 18 B/P (MAP) 125/69 (87) Pulse Ox 98 O2 Delivery Room Air Room Air Room Air 09/24/19 00:00 Intake Total 1688 ml Balance 1688 ml Constitutional: well-developed, well-nourished, other Respiratory: chest expansion is symmetric, chest is bilaterally symmetric, lungs clear to auscultation Cardiovascular: regular rate-rhythm, S1 and S2, systolic murmur Gastrointestional: soft, audible bowel sounds, other Extremities: no lower extremity edema bilateral Neurologic/Psychiatric: other Skin: No rash on exposed areas, No ulcerations on exposed areas Results/Procedures: Labs Laboratory Tests 09/24/19 05:46: White Blood Count 8.7, Red Blood Count 4.18L, Hemoglobin 11.1L, Hematocrit 35L, Mean Corpuscular Volume 85, Mean Corpuscular Hemoglobin 27, Mean Corpuscular Hemoglobin Concent 31L, Red Cell Distribution Width 15.9H, Platelet Count 298, Mean Platelet Volume 11.2H, Neutrophils (%) (Auto) 71, Lymphocytes (%) (Auto) 16, Monocytes (%) (Auto) 9, Eosinophils (%) (Auto) 4, Basophils (%) (Auto) 1, Neutrophils # (Auto) 6.2, Lymphocytes # (Auto) 1.4, Monocytes # (Auto) 0.8, Eosinophils # (Auto) 0.3, Basophils # (Auto) 0.1, Sodium Level 139, Potassium Level 4.4, Chloride Level 106, Carbon Dioxide Level 26, Anion Gap 7, Blood Urea Nitrogen 17, Creatinine 0.92, Estimat Glomerular Filtration Rate > 60, BUN/Creatinine Ratio 18, Glucose Level 96, Calcium Level 9.4, Corrected Calcium 9.8, Total Bilirubin 0.4, Aspartate Amino Transf (AST/SGOT) 30, Alanine Aminotransferase (ALT/SGPT) 26, Alkaline Phosphatase 82, Total Protein 6.3L, Albumin 3.5 A/P: Assessment/Dx: Hematochezia on 09/15/19 (warfarin and ASA were held) being managed by Dr Simon and Dr Flores 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 Dias at [facility] Records from [facility] report h/o CVA x 3 (2008, 2013 x2) H/O PE in 2016 tx at [facility] Dysphagia - PEG tube in place HTN CAD - CABG x 4 vessel in February 2016 at [facility] by Dr. Regan - quadruple bypass with VILLATORO to LAD, saphenous vein graft to OM 1, saphenous vein T graft to D1, saphenous vein graft to LPDA. 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 Has been on warfarin H/O hematology w/u at [facility] which did not show hypercoagulable state H/O acute gangrenous cholecystitis for which he underwent cholecystectomy in July 2019 at [place], [place] Documented h/o prostate cancer Plan: Plan: General surgery has cleared the patient for antiplatelet therapy. On aspirin. Patient is also on Coumadin. Monitor labs Thank you for your consultation. Please call me if you have any questions. Cresencio Sweet MD, FACP, FACC, FSCAI, FHRS, CCDS Interventional Cardiology Cardiac Electrophysiology Vascular Medicine and Endovascular Interventions Miguel SWEET MD Sep 24, 2019 16:13
[2019-09-24 18:00] VITALS: BP 100/60
[2019-09-24] MEDS: MELATONIN 3 MG TABLET PO PRN (20:32)
[2019-09-24] MEDS: ALPRAZolam 0.25 MG (XANAX) TAB PO PRN (20:32)
[2019-09-25] MEDS: SUCRALFATE 1 GM (CARAFATE) TAB PO SCH ×4 (00:38→18:20)
[2019-09-25 05:26] VITALS: BP 142/79
[2019-09-25] MEDS: LEVOTHYROXINE 75 MCG (LEVOTHROID) TABLET PO SCH (06:28)
[2019-09-25] MEDS: ASPIRIN 81 MG CHEW (CHILDREN'S ASA) PO SCH (08:56)
[2019-09-25] MEDS: LACTOBACILLUS ACIDOPHILUS (PROBIOTIC) CAPSULE PEG SCH ×2 (08:56→21:14)
[2019-09-25] MEDS: meTOprolol TARTRATE 25 MG (LOPRESSOR) TABLET PO SCH (08:56)
[2019-09-25] MEDS: PANTOPRAZOLE 2 MG/ML LIQUID 200 ML (PROTONIX) PEG SCH ×6 (08:57→21:14)
[2019-09-25] MEDS: SENNA W/DOCUSATE (SENOKOT S) TABLET PO SCH ×2 (09:02→20:25)
[2019-09-25] MEDS: DOCUSATE SODIUM 100 MG (COLACE) CAP PO SCH ×2 (09:02→20:24)
[2019-09-25] MEDS: polyethylene glycoL POWDER 17 GM (MIRALAX) PACK PO SCH ×2 (09:02→20:24)
--- NOTE | 2019-09-25 10:38 | Physical Therapy Daily Note ---
PT Daily Note-Current Subjective Patient in bed pre tx, agrees to PT, has no complaints of pain, will be co- treating with OT due to poor patient mobility, strength, endurance, poor sitting and standing balance, pushers syndrome, left hemiparesis, the need to coordinate UE and LE during activity. Appearance Patient in bed post tx with nurse call, phone, tray, all needs met, bed alarm on. Mental Status Patient Orientation: Person, Unable to Assess, [place] Transfers SCALE: Activities may be completed with or without assistive devices. 9-Cgyvtgejhl-unupith completes the activity by him/herself with no assistance from a helper. 5-Set-up or Clean-up Assistance-helper sets up or cleans up; patient completes activity. [place] assists only prior to or following the activity. 4-Supervision or Touching Assistance-helper provides verbal cues and/or touching/steadying and/or contact guard assistance as patient completes activity. Assistance may be provided throughout the activity or intermittently. 3-Partial/Moderate Assistance-helper does LESS THAN HALF the effort. [place] lifts, holds or supports trunk or limbs, but provides less than half the effort. 2-Substantial/Maximal Assistance-helper does MORE THAN HALF the effort. [place] lifts or holds trunk or limbs and provides more than half the effort. 5-Vxbtfyvdx-ajmtua does ALL the effort. Patient does none of the effort to complete the activity. Or, the assistance of 2 or more helpers is required for the patient to complete the activity. If activity was not attempted, code reason: 7-Patient Refused. 9-Not Applicable-not attempted and the patient did not perform the activity before the current illness, exacerbation or injury. 10-Not Attempted due to Environmental Limitations-(lack of equipment, weather restraints, etc.). 88-Not Attempted due to Medical Conditions or Safety Concerns. Roll Left & Right (QC): 3 Sit to Lying (QC): 2 Lying to Sitting/Side of Bed(Q: 2 Sit to Stand (QC): 2 Chair/Lbw-jl-Autaf Xfer(QC): 2 Patient in bed, needs brief changed, has to roll to each side a couple of times with min/mod assist, dependent for changing, supine to sit with max assist, stand pivot transfers with max assist to WC, propel WC to therapy gym with max assist (patient helps using right hand but needs cues to keep on task, will just let go after a while, will not use right foot to assist and will actually resist forward movement with it), stand pivot to therapy table to work on sitting balance, stand pivot back to WC and propel back to room, stand pivot back to bed and then sit to supine. Neuromuscular worked on sitting balance for about 15 min, patient pushes and leans forcefully to the left side, tends to ease up after a few minutes, cues for positioning and safety. Monitored patient's blood pressure during sitting and was gradually decreasing (102/62, 99/57, 92/55, 89/53) Treatments PT worked on rolling, supine <-> sit, transfers, WC mobility, sitting balance, OT worked on changing brief, dressing, UE positioning and safety during sitting balance and mobility, assist with transfers Assessment Current Status: Poor Progress No change in mobility. PT Short Term Goals Short Term Goals Time Frame: Sep 19, 2019 Roll Left & Right: 2 Sit to lyin Lying to sitting on side of be: 2 Sit to stand: 2 Chair/xtl-mk-tfrlb transfer: 2 Wheel 50ft w/2 turns: 2 Wheel 150 feet: 2 PT Detention Goals Detention Goals PT Detention Goals Time Frame: Oct 03, 2019 Roll Left & Right (QC): 3 Sit to Lying (QC): 3 Lying-Sitting on Side/Bed(QC): 3 Sit to Stand (QC): 3 Chair/Wfh-iu-Atcry Xfer(QC): 3 Toilet Transfer (QC): 3 Car Transfer (QC): 3 Does the Patient Walk: No and Walking Goal NOT indicated Walk 10 feet (QC): 88 Walk 50ft with 2 Turns (QC): 88 Walk 150 ft (QC): 88 Walking 10ft on Uneven Surface: 88 1 Step (curb) (QC): 88 4 Steps (QC): 88 12 Steps (QC): 88 Picking up an Object (QC): 88 Wheel 50 feet with 2 turns (QC: 3 Wheel 150 feet: 3 PT Plan Problem List Problem List: Activity Tolerance, Functional Strength, Safety, Balance, Gait, Transfer, Bed Mobility, ROM Treatment/Plan Treatment Plan: Continue Plan of Care Treatment Plan: Bed Mobility, Education, Functional Activity Aliyah, Functional Strength, Group Therapy, Gait, Safety, Therapeutic Exercise, Transfers Treatment Duration: Oct 03, 2019 Frequency: At least 5 of 7 days/Wk (IRF) Estimated Hrs Per Day: 1.5 hours per day Patient and/or Family Agrees t: Yes Safety Risks/Education Patient Education: Transfer Techniques, Correct Positioning, W/C Management, Safety Issues Teaching Recipient: Patient Teaching Methods: Demonstration, Discussion Response to Teaching: Reinforcement Needed Time/GCodes Time In: 0900 Time Out: 1000 Total Billed Treatment Time: 60 Total Billed Treatment 1 visit NM 15' WCH 15' FA 30' co-treated with OT for 60' RUY MCGRATH PT Sep 25, 2019 10:38
--- NOTE | 2019-09-25 10:39 | PM&R Progress Note ---
Subjective HPI/CC On Admission Date Seen by Provider: Sep 25, 2019 Time Seen by Provider: 09:00 Subjective/Events-last exam 09/25/19: BP remains a little bit low, will replace ROLANDO abiel Bowel and bladder incontinence noted today Peg tub will be utilized for increased fluid intake 09/24/19: Holding Lopressor due to orthostasis during PT today BP 125/70 after orthostasis episode resolved No nausea or vomiting Regular rhythm on exam 09/23/19: Tolerating TF well Lethargic is chronic No pain reported 09/22/19: BM yesterday Tolerating TF well No pain reported 09/21/19: Pt more talkative today No more bloody stools Two bowel movements last night were brown Decubitus ulcer on coccyx being monitored and managed 09/20/19: Pt sleeping most of the time Participating in therapy Tube feedings of one can every three hours is working a lot better for him, he is tolerating it better No more bloody stools Cardiology restarted Aspirin but Coumadin will continue to be held because he has had two GI bleeds in the past two weeks and cant withstand a colonoscopy prep Very complex case 09/19/19: Pt sleeps most of the time Will discuss disposition, I doubt any recovery potential Overall needs probably a senior care for long-term care 09/18/19: Insomnia is an issue Worked with PT today but seems to take a lot of naps during the day which disrupts the nighttime sleeping No pain is reported 09/17/19: Pt sleeps most of the time No major changes No bloody stools Off of Lovenox, Coumadin and Aspirin Second GI bleed in the last few weeks 09/16/19: No bloody stools today Hgb stable 10.3 Is not strong enough to undergo C-scope prep Dr Flores saw him this morning Holding ASA Lovenox Coumadin Had GI at [place] also Decreased cognition 09/15/19: Patient had been doing pretty well when I rounded No more nausea and vomiting like yesterday Tube feeding was restarted slowly I stopped the Clinimix since tube feedings were started N.p.o. 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 Flores general surgery was consulted and checked hemoglobin and hematocrit. 09/14/19: Had nausea and vomiting all last night Needs IV fluids gently so we'll start that today Urinary incontinence noted No fecal incontinence Holding tube feedings for right now Barium swallow today at 11:30 INR 1.4 will increase dose and provide Lovenox 09/13/19: Patient doing pretty well today Sleeping currently Therapy worked with him today Modified Barium Swallow scheduled Hemoglobin 9.6 Disoriented at times Bowels moved yesterday Conferred with RN Reviewed Therapy notes Checked Meds and Labs Review of Systems General: Fatigue, Malaise Neurological: Weakness Objective Exam Vital Signs Vital Signs Date Time Temp Pulse Resp B/P (MAP) Pulse Ox O2 Delivery O2 Flow Rate FiO2 09/25/19 16:29 36.2 90 20 114/67 (83) 96 Room Air Capillary Refill : Less Than 3 SecondsLess Than 3 Seconds General Appearance: No Apparent Distress, WD/WN, Chronically ill HEENT: PERRL/EOMI, Normal ENT Inspection, Pharynx Normal Neck: Full Range of Motion, Normal Inspection, Non Tender, Supple, Carotid Bruit Respiratory: Chest Non Tender, Lungs Clear, Normal Breath Sounds, No Accessory Muscle Use, No Respiratory Distress Cardiovascular: No Edema, No Gallop, No JVD, No Murmur, Normal Peripheral Pulses, Irregularly Irregular Gastrointestinal: Normal Bowel Sounds, No Organomegaly, No Pulsatile Mass, Non Tender, Soft Back: Normal Inspection, No CVA Tenderness, No Vertebral Tenderness Extremity: Normal Capillary Refill, Normal Inspection, Normal Range of Motion, Non Tender, No Calf Tenderness, Pedal Edema Neurologic/Psychiatric: Alert, Oriented x3, Normal Mood/Affect, sustainability consultant II-XII Norm as Tested, Aphasia, Facial Droop (left), Motor Weakness (left sided) Skin: Normal Color, Warm/Dry Lymphatic: No Adenopathy Results/Procedures Lab Patient resulted labs reviewed. FIM Transfers Therapy Code Descriptions/Definitions Functional [place] Measure: 0=Not Assessed/NA 4=Minimal Assistance 1=Total Assistance 5=Supervision or Setup 2=Maximal Assistance 6=Modified [place] 3=Moderate Assistance 7=Complete IndependenceSCALE: Activities may be completed with or without assistive devices. 9-Lhgydoeqff-ojazgqv completes the activity by him/herself with no assistance from a helper. 5-Set-up or Clean-up Assistance-helper sets up or cleans up; patient completes activity. [place] assists only prior to or following the activity. 4-Supervision or Touching Assistance-helper provides verbal cues and/or touching/steadying and/or contact guard assistance as patient completes activity. Assistance may be provided throughout the activity or intermittently. 3-Partial/Moderate Assistance-helper does LESS THAN HALF the effort. [place] lifts, holds or supports trunk or limbs, but provides less than half the effort. 2-Substantial/Maximal Assistance-helper does MORE THAN HALF the effort. [place] lifts or holds trunk or limbs and provides more than half the effort. 6-Qvjclkqje-hnwgip does ALL the effort. Patient does none of the effort to complete the activity. Or, the assistance of 2 or more helpers is required for the patient to complete the activity. If activity was not attempted, code reason: 7-Patient Refused. 9-Not Applicable-not attempted and the patient did not perform the activity before the current illness, exacerbation or injury. 10-Not Attempted due to Environmental Limitations-(lack of equipment, weather restraints, etc.). 88-Not Attempted due to Medical Conditions or Safety Concerns. Roll Left to Right (QC): 3 Sit to Lying (QC): 1 Sit to Stand (QC): 2 Chair/Fcm-md-Bgkus Xfer(QC): 2 Car Transfer (QC): 1 Gait Training Does the Patient Walk?: No and Walking Goal NOT indicated Walk 10 feet (QC): 88 Walk 50 ft with 2 Turns(QC): 88 Walk 150 ft (QC): 88 Walking 10ft/uneven surface-QC: 88 Wheelchair Training Does the Pt Use a Wheelchair?: Yes Distance: 150'x2 Wheel 50 ft with 2 turns (QC): 2 (mod assist to guide chair.) Wheel 150 ft (QC): 1 Type of Wheelchair: Manual Stair Training 1 Step (curb) (QC): 88 4 Steps (QC): 88 12 Steps (QC): 88 Balance Picking up an Object (QC): 88 ADL-Treatment Eating (QC): 88 (See BODY BUILDER APPRENTICE notes) Oral Hygiene (QC): 5 (s/u in w/c in front of sink. Pt able to take dentation out and completes packet opening with s/u and cues. ) Bathing Location: Chest, Abdomen, Perineal Area Shower/Bathe Self (QC): 1 (TD, Ax2 for bathing in bed. ) Upper Body Dressing (QC): 2 (Pt completes with max A : pt able to don R and overhead, requires assist with L and AAROM of L UE to thread. Decreased problem solving with threading. ) Lower Body Dressing (QC): 1 On/Off Footwear (QC): 2 Toileting Hygiene (QC): 1 Toilet Transfer (QC): 88 (Using bedpan) Assessment/Plan Assessment and Plan Assess & Plan/Chief Complaint Assessment: CVA Left sided weakness Left sided neglect PEG tube status Dysphagia Aspiration hx with PNA CAD AF Coumadin treatment GIB 09/14/19 Plan: IRF protocol ST to work on dysphagia TF to be maintained Coumadin treatment Cardiology evaluation 09/13/19: Continue aggressive treatment Barium Swallow Monitor Hemoglobin 09/14/19: Give gentle IV fluids Increase INR with Coumadin with Lovenox bridge Barium swallow today 09/15/2019: Monitor GI bleed Hold Coumadin and Lovenox and aspirin Hold tube feedings Consult general surgery for endoscopies Maintain n.p.o. status due to aspiration risk 09/16/19: Monitor Hgb NPO Aspiration risk TF gently 09/17/19: No major changes Sleeping most of the time Stay off blood thinners due to second GI bleed 09/18/19: Insomnia treatment Continue aggressive physical therapy 09/19/19: Disposition will be discussed in team conference Tube feedings are tolerated well No more bloody stools Scrotum seems to be bleeding at times 09/19/19: Continue tube feedings of 1 can every 3 hours Sleeps most of the time No more bloody stools Aspirin was restarted Two GI bleeds in less than 2 weeks precludes restarting Coumadin 09/21/19: No more bloody stools Bowels are now light brown Coccyx has alevan to help heal 09/22/19: TF working well when using 1 can at a time No pain reported Continue therapy 09/23/19: Maintain TF for now 1 can at at time Fall risk IRF protocol 09/24/19: Monitor orthostasis Monitor hemoglobin Appreciate Dietary input 09/25/19: Replace ROLANDO hose to limit orthostasis Increasing PEG tube fluid Noted bowel and bladder dysfunction today (1) CVA (cerebral vascular accident) (2) Atrial fibrillation with normal ventricular rate (3) CAD (coronary artery disease) (4) Stented coronary artery (5) Dysphagia (6) Left-sided weakness (7) At risk for aspiration (8) PEG (percutaneous endoscopic gastrostomy) status (9) On warfarin therapy (10) Left-sided neglect (11) Facial droop KENZIE MORENO DO Sep 25, 2019 10:39
--- NOTE | 2019-09-25 11:48 | Occupational Ther Daily Note ---
OT Current Status-Daily Note Subjective Patient in bed pre tx, agrees to OT, has no complaints of pain, will be co- treating with PT due to poor patient mobility, strength, endurance, poor sitting and standing balance, pushers syndrome, left hemiparesis, the need to coordinate UE and LE during activity. Mental Status/Objective Patient Orientation: Person, Unable to Assess ADL-Treatment Therapy Code Descriptions/Definitions Functional [place] Measure: 0=Not Assessed/NA 4=Minimal Assistance 1=Total Assistance 5=Supervision or Setup 2=Maximal Assistance 6=Modified [place] 3=Moderate Assistance 7=Complete IndependenceSCALE: Activities may be completed with or without assistive devices. 7-Qbetyextez-brrccyu completes the activity by him/herself with no assistance from a helper. 5-Set-up or Clean-up Assistance-helper sets up or cleans up; patient completes activity. [place] assists only prior to or following the activity. 4-Supervision or Touching Assistance-helper provides verbal cues and/or touching/steadying and/or contact guard assistance as patient completes activity. Assistance may be provided throughout the activity or intermittently. 3-Partial/Moderate Assistance-helper does LESS THAN HALF the effort. [place] lifts, holds or supports trunk or limbs, but provides less than half the effort. 2-Substantial/Maximal Assistance-helper does MORE THAN HALF the effort. [place] lifts or holds trunk or limbs and provides more than half the effort. 0-Mpvmqdpam-optbri does ALL the effort. Patient does none of the effort to complete the activity. Or, the assistance of 2 or more helpers is required for the patient to complete the activity. If activity was not attempted, code reason: 7-Patient Refused. 9-Not Applicable-not attempted and the patient did not perform the activity before the current illness, exacerbation or injury. 10-Not Attempted due to Environmental Limitations-(lack of equipment, weather restraints, etc.). 88-Not Attempted due to Medical Conditions or Safety Concerns. Upper Body Dressing (QC): 2 (OT assisted pt with donning shirt onto LUE and over head, OT held open R sleeve and pt able to thread RUE. OT assisted pt with managing shirt down.) Lower Body Dressing (QC): 1 (assist x2 during stand.) On/Off Footwear: 1 (dependent to don tedhose and gripper socks.) Toileting Hygiene (QC): 1 (brief changed due to incontinence of bladder.) Other Treatment OT/PT cotreat due to skill of 2 clinicians required to due to poor, patient mobility, strength, endurance, poor sitting and standing balance, pushers syndrome, left hemiparesis, coordinate UE use and balance. OT focused on ADLs, changing brief, dressing, UE placement, cues for safety and sequencing, and balance while PT addressed balance management, rolling, WC mobility, and transfers. Patient in bed, needs brief changed, has to roll to each side a couple of times with min/mod assist, dependent for changing, supine to sit with max assist, stand pivot transfers with max assist to WC, propel WC to therapy gym with max assist (patient helps using right hand but needs cues to keep on task, will just let go after a while, will not use right foot to assist and will actually resist forward movement with it). stand pivot to therapy table to work on sitting balance for about 15 min, patient pushes and leans forcefully to the left side, tends to ease up after a few minutes, cues for positioning and sa fety. Monitored patient's blood pressure during sitting and was gradually decreasing (102/62, 99/57, 92/55, 89/53). stand pivot back to WC and propel back to room, stand pivot back to bed and then sit to supine. Post OT/PT cotreat, pt laying in bed, call light in reach and all needs met. Education OT Patient Education: Correct positioning, Energy conservation, Modified ADL techniques, Progress toward Goal/Update tx plan, Purpose of tx/functional activities, Safety issues, Transfer techniques, W/C management Teaching Recipient: Patient Teaching Methods: Discussion Response to Teaching: Reinforcement Needed OT Short Term Goals Short Term Goals Time Frame: Sep 19, 2019 Shower/bathe self: 2 Upper body dressin Lower body dressin OT Metal Ceiling Builder Goals Metal Ceiling Builder Goals Time Frame: Oct 03, 2019 Eating (QC): 4 Oral Hygiene (QC): 4 Toileting Hygiene (QC): 3 Shower/Bathe Self (QC): 3 Upper Body Dressing (QC): 3 Lower Body Dressing (QC): 2 On/Off Footwear (QC): 2 Additional Goals: 1-Demonstrate ADL Tasks, 2-Verbalize Understanding, 3- ImproveStrength/Aliyah 1=Demonstrate adherence to instructed precautions during ADL tasks. 2=Patient will verbalize/demonstrate understanding of assistive devices/modifications for ADL. 3=Patient will improve strength/tolerance for activity to enable patient to perform ADL's. OT Education/Plan Problem List/Assessment Assessment: Decreased Activ Tolerance, Decreased Safety Aware, Decreased UE Str ength, Impaired Bed Mobility, Impaired Funct Balance, Impaired I ADL's, Impaired Self-Care Skills, Restricted Funct UE ROM Discharge Recommendations Plan/Recommendations: Continue POC Treatment Plan/Plan of Care Patient would benefit from OT for education, treatment and training to promote independence in ADL's, mobility, safety and/or upper extremity function for ADL's. Plan of Care: ADL Retraining, Caregiver Training, Functional Mobility, Group Exercise/Act as Ind, Orthotic Fitting/Training, UE Funct Exercise/Act, UE Neuromus Re-Ed/Coord, Visual/Perceptual Retrain, W/C Management Training Treatment Duration: Oct 03, 2019 Frequency: At least 5 of 7 days/Wk (IRF) Estimated Hrs Per Day: 1.5 hours per day Agreement: Yes Rehab Potential: Poor Time/GCodes Start Time: 09:00 Stop Time: 10:00 Total Time Billed (hr/min): 60 Billed Treatment Time OT/PT cotreat x60' 1. ADL (20'), FA 3 (40') SHARONDA SOMMERS OT Sep 25, 2019 11:48
--- NOTE | 2019-09-25 12:01 | Occupational Ther Daily Note ---
OT Current Status-Daily Note Subjective Pt laying in bed, agreeable to OT Tx. Pt reported some pain in L shoulder with PROM but unable to rate pain. Mental Status/Objective Patient Orientation: Person, Unable to Assess ADL-Treatment Therapy Code Descriptions/Definitions Functional [place] Measure: 0=Not Assessed/NA 4=Minimal Assistance 1=Total Assistance 5=Supervision or Setup 2=Maximal Assistance 6=Modified [place] 3=Moderate Assistance 7=Complete IndependenceSCALE: Activities may be completed with or without assistive devices. 5-Dnuedjdujb-zxmbqwk completes the activity by him/herself with no assistance from a helper. 5-Set-up or Clean-up Assistance-helper sets up or cleans up; patient completes activity. [place] assists only prior to or following the activity. 4-Supervision or Touching Assistance-helper provides verbal cues and/or touching/steadying and/or contact guard assistance as patient completes activity. Assistance may be provided throughout the activity or intermittently. 3-Partial/Moderate Assistance-helper does LESS THAN HALF the effort. [place] lifts, holds or supports trunk or limbs, but provides less than half the effort. 2-Substantial/Maximal Assistance-helper does MORE THAN HALF the effort. [place] lifts or holds trunk or limbs and provides more than half the effort. 1-Hkgffrgsp-jkbvah does ALL the effort. Patient does none of the effort to complete the activity. Or, the assistance of 2 or more helpers is required for the patient to complete the activity. If activity was not attempted, code reason: 7-Patient Refused. 9-Not Applicable-not attempted and the patient did not perform the activity before the current illness, exacerbation or injury. 10-Not Attempted due to Environmental Limitations-(lack of equipment, weather restraints, etc.). 88-Not Attempted due to Medical Conditions or Safety Concerns. Other Treatment Pt laying in bed, agreeable to OT Tx. OT performed PROM to LUE x20 reps each for the following movements: shoulder flexion, shoulder external rotation, elbow flexion/extension, wrist flexion/extension and finger flexion/extension. Pt reports pain in shoulder with shoulder flexion at 90 degrees, as well as with external rotation. OT then instructed pt to use his R hand to find his L wrist, pt moved his right hand to L wrist, then closed his eyes. In order to increase pt's participation with threading LUE for dressing, OT held gown sleeve open for pt and instructed him to lift his L arm with his R hand to put into gown. Pt lifted his arm off of the pillow but then sat it back down and closed his eyes. OT instructed pt to lift arm again, he required verbal and tactile cues to follow instruction due to closing his eyes. OT provided hand over hand assistance for pt to thread LUE in/out of gown sleeve using RUE. OT provided verbal and tactile cues for pt to open his eyes and participate in session but pt continued to keep eyes closed and sleep. Post OT tx, pt laying in bed, call light in reach and all needs met. Education OT Patient Education: Correct positioning, Energy conservation, Modified ADL techniques, Progress toward Goal/Update tx plan, Purpose of tx/functional activities Teaching Recipient: Patient Teaching Methods: Demonstration, Discussion Response to Teaching: Reinforcement Needed OT Short Term Goals Short Term Goals Time Frame: Sep 19, 2019 Shower/bathe self: 2 Upper body dressin Lower body dressin OT Photographic Restorer Goals Photographic Restorer Goals Time Frame: Oct 03, 2019 Eating (QC): 4 Oral Hygiene (QC): 4 Toileting Hygiene (QC): 3 Shower/Bathe Self (QC): 3 Upper Body Dressing (QC): 3 Lower Body Dressing (QC): 2 On/Off Footwear (QC): 2 Additional Goals: 1-Demonstrate ADL Tasks, 2-Verbalize Understanding, 3- ImproveStrength/Aliyah 1=Demonstrate adherence to instructed precautions during ADL tasks. 2=Patient will verbalize/demonstrate understanding of assistive devices/modifications for ADL. 3=Patient will improve strength/tolerance for activity to enable patient to perform ADL's. OT Education/Plan Problem List/Assessment Assessment: Decreased Activ Tolerance, Decreased Safety Aware, Decreased UE Strength, Impaired Bed Mobility, Impaired Funct Balance, Impaired I ADL's, Impaired Self-Care Skills, Restricted Funct UE ROM Discharge Recommendations Plan/Recommendations: Continue POC Treatment Plan/Plan of Care Patient would benefit from OT for education, treatment and training to promote independence in ADL's, mobility, safety and/or upper extremity function for ADL's. Plan of Care: ADL Retraining, Caregiver Training, Functional Mobility, Group Exercise/Act as Ind, Orthotic Fitting/Training, UE Funct Exercise/Act, UE Neuromus Re-Ed/Coord, Visual/Perceptual Retrain, W/C Management Training Treatment Duration: Oct 03, 2019 Frequency: At least 5 of 7 days/Wk (IRF) Estimated Hrs Per Day: 1.5 hours per day Agreement: Yes Rehab Potential: Poor Time/GCodes Start Time: 11:00 Stop Time: 11:30 Total Time Billed (hr/min): 30 Billed Treatment Time 1, EX 2 SHARONDA SOMMERS OT Sep 25, 2019 12:01
[2019-09-25 12:50] VITALS: BP 120/72
--- NOTE | 2019-09-25 13:34 | NUR ---
BP CHECKS WITH THERAPY THIS AM WHILE SITTING (15 MINUTE TIME PERIOD)- 102/62, 99/57, 92/55, 89/53. DR. ROSARIO HERE AND INFORMED. ORDERS TO PUT LOPRESSOR ON HOLD.
--- NOTE | 2019-09-25 13:49 | NUR ---
CM/SS CONCURRENT DOCUMENTATION Reviewed EMR and therapy progress notes. Met with Oksana to explore thoughts about discharge planning. Oksana was hoping that patient could stay longer and would begin to show improvements. Oksana shared she is overwhelmed, she stayed with patient while he was at [facility], likely to the point of exhaustion. She has been more focused at this time on taking care of business and does not visit patient daily. She stated this a.m. she did not plan to return until Tuesday of this week. Oksana does not want patient to be placed in a community snf facility. Frame Table Operator asked what she thought she would need at home in order for patient to return there, and she replied she didn't know. Proposed the anticipated scenario of having to physically assist patient for all care needs and that he remains dependent on caregivers. Oksana realizes she is unable to provide alone. Their home bath will not accommodate a wheelchair, only a FWW with some maneuvering. More questions unanswered than resolved during this session and conversation; however, Oksana was asked to begin to process taking patient home with DME and paid caregivers vs admission into a community SNF. Patient is insured [employer], would anticipate a very short skilled benefit if any. Difficult situation for patient and family as well as discharge planning aspects.
--- NOTE | 2019-09-25 14:10 | Physical Therapy Daily Note ---
PT Daily Note-Current Subjective Patient in bed pre tx, agrees to PT, no complaints of pain. Appearance Patient in bed post tx with nurse call, phone, tray, all needs met, in room. Mental Status Patient Orientation: Person, Unable to Assess, [place] Transfers SCALE: Activities may be completed with or without assistive devices. 8-Ylpmllblnz-abqngpp completes the activity by him/herself with no assistance from a helper. 5-Set-up or Clean-up Assistance-helper sets up or cleans up; patient completes activity. [place] assists only prior to or following the activity. 4-Supervision or Touching Assistance-helper provides verbal cues and/or touching/steadying and/or contact guard assistance as patient completes activity. Assistance may be provided throughout the activity or intermittently. 3-Partial/Moderate Assistance-helper does LESS THAN HALF the effort. [place] lifts, holds or supports trunk or limbs, but provides less than half the effort. 2-Substantial/Maximal Assistance-helper does MORE THAN HALF the effort. [place] lifts or holds trunk or limbs and provides more than half the effort. 1-Zhcyhvhcr-aujszt does ALL the effort. Patient does none of the effort to complete the activity. Or, the assistance of 2 or more helpers is required for the patient to complete the activity. If activity was not attempted, code reason: 7-Patient Refused. 9-Not Applicable-not attempted and the patient did not perform the activity before the current illness, exacerbation or injury. 10-Not Attempted due to Environmental Limitations-(lack of equipment, weather restraints, etc.). 88-Not Attempted due to Medical Conditions or Safety Concerns. Exercises Supine Ex: Ankle pumps, Quad Set, Glut sets, Heel Slides, Short Arc Quads, Straight leg raise, Hip abd/add Supine Reps: 20 (RLE) LLE PROM/stretching in all planes, encouraged patient to perform AAROM but he could not. Treatments LE ROM Assessment Current Status: Poor Progress Patient needs repeated directions and encouragement during exercises. PT Short Term Goals Short Term Goals Time Frame: Sep 19, 2019 Roll Left & Right: 2 Sit to lyin Lying to sitting on side of be: 2 Sit to stand: 2 Chair/rbd-ce-gnghc transfer: 2 Wheel 50ft w/2 turns: 2 Wheel 150 feet: 2 PT Snf Goals Medical Billing Coder Goals PT Snf Goals Time Frame: Oct 03, 2019 Roll Left & Right (QC): 3 Sit to Lying (QC): 3 Lying-Sitting on Side/Bed(QC): 3 Sit to Stand (QC): 3 Chair/Gmj-so-Luiyc Xfer(QC): 3 Toilet Transfer (QC): 3 Car Transfer (QC): 3 Does the Patient Walk: No and Walking Goal NOT indicated Walk 10 feet (QC): 88 Walk 50ft with 2 Turns (QC): 88 Walk 150 ft (QC): 88 Walking 10ft on Uneven Surface: 88 1 Step (curb) (QC): 88 4 Steps (QC): 88 12 Steps (QC): 88 Picking up an Object (QC): 88 Wheel 50 feet with 2 turns (QC: 3 Wheel 150 feet: 3 PT Plan Problem List Problem List: Activity Tolerance, Functional Strength, Safety, Balance, Gait, Transfer, Bed Mobility, ROM Treatment/Plan Treatment Plan: Continue Plan of Care Treatment Plan: Bed Mobility, Education, Functional Activity Aliyah, Functional Strength, Group Therapy, Gait, Safety, Therapeutic Exercise, Transfers Treatment Duration: Oct 03, 2019 Frequency: At least 5 of 7 days/Wk (IRF) Estimated Hrs Per Day: 1.5 hours per day Patient and/or Family Agrees t: Yes Safety Risks/Education Patient Education: Correct Positioning, Safety Issues Teaching Recipient: Patient Teaching Methods: Demonstration, Discussion Response to Teaching: Reinforcement Needed Time/GCodes Time In: 1345 Time Out: 1415 Total Billed Treatment Time: 30 Total Billed Treatment 1 visit EX 30' RUY MCGRATH PT Sep 25, 2019 14:10
--- NOTE | 2019-09-25 14:50 | NUR ---
[facility] [place] Wie did most of the talking while pt was pretty quiet though often encouraged hi to talk. Candle Cutter offered prayer.
--- NOTE | 2019-09-25 14:56 | Cardiology Progress Note ---
Cardiology SOAP Progress Note Subjective: No current cardiac complaints. Objective: I&O/Vital Signs 09/25/19 09/25/19 09/25/19 09/25/19 05:26 08:01 09:46 12:50 Temp 36.6 Pulse 98 90 Resp 16 B/P (MAP) 142/79 (100) 120/72 (88) Pulse Ox 98 O2 Delivery Room Air Room Air Room Air 09/25/19 00:00 Intake Total 1700 ml Balance 1700 ml Constitutional: well-developed, well-nourished, other Respiratory: chest expansion is symmetric, chest is bilaterally symmetric, lungs clear to auscultation Cardiovascular: regular rate-rhythm, S1 and S2, systolic murmur Gastrointestional: soft, audible bowel sounds, other Extremities: no lower extremity edema bilateral Neurologic/Psychiatric: other Skin: No rash on exposed areas, No ulcerations on exposed areas A/P: Assessment/Dx: Hematochezia on 09/15/19 (warfarin and ASA were held previously) being managed by Dr Simon and Dr Flores 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 Dias at [facility] Records from [facility] report h/o CVA x 3 (2008, 2013 x2) H/O PE in 2016 tx at [facility] Dysphagia - PEG tube in place HTN CAD - CABG x 4 vessel in February 2016 at [facility] by Dr. Regan - quadruple bypass with VILLATORO to LAD, saphenous vein graft to OM 1, saphenous vein T graft to D1, saphenous vein graft to LPDA. 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 Has been on warfarin H/O hematology w/u at [facility] which did not show hypercoagulable state H/O acute gangrenous cholecystitis for which he underwent cholecystectomy in July 2019 at [place], [place] Documented h/o prostate cancer Plan: Plan: General surgery has cleared the patient for antiplatelet therapy. On aspirin. Patient is also on Coumadin. Monitor labs Thank you for your consultation. Please call me if you have any questions. Cresencio Sweet MD, FACP, FACC, FSCAI, FHRS, CCDS Interventional Cardiology Cardiac Electrophysiology Vascular Medicine and Endovascular Interventions Miguel SWEET MD Sep 25, 2019 14:55
[2019-09-25 16:29] VITALS: BP 114/67
--- NOTE | 2019-09-25 17:20 | NUR ---
SCREW CAME OUT OF PATIENT'S GLASSES. TOOK THEM HOME TO SEE IF SHE CAN FIX THEM.
[2019-09-25] MEDS: ALPRAZolam 0.25 MG (XANAX) TAB PO PRN (21:14)
[2019-09-25] MEDS: MELATONIN 3 MG TABLET PO PRN (21:14)
[2019-09-27 07:00] VITALS: BP 146/77
--- NOTE | 2019-09-27 08:25 | PM&R Progress Note ---
Subjective HPI/CC On Admission Date Seen by Provider: Sep 26, 2019 Time Seen by Provider: 08:45 Subjective/Events-last exam 09/26/19: Insomnia much improved he slept very well last night Bowels are moving Tube feedings are tolerated since it is only one can at a time No falls Appears to be more motivated today 09/25/19: BP remains a little bit low, will replace ROLANDO hose Bowel and bladder incontinence noted today Peg tub will be utilized for increased fluid intake 09/24/19: Holding Lopressor due to orthostasis during PT today BP 125/70 after orthostasis episode resolved No nausea or vomiting Regular rhythm on exam 09/23/19: Tolerating TF well Lethargic is chronic No pain reported 09/22/19: BM yesterday Tolerating TF well No pain reported 09/21/19: Pt more talkative today No more bloody stools Two bowel movements last night were brown Decubitus ulcer on coccyx being monitored and managed 09/20/19: Pt sleeping most of the time Participating in therapy Tube feedings of one can every three hours is working a lot better for him, he is tolerating it better No more bloody stools Cardiology restarted Aspirin but Coumadin will continue to be held because he has had two GI bleeds in the past two weeks and cant withstand a colonoscopy prep Very complex case 09/19/19: Pt sleeps most of the time Will discuss disposition, I doubt any recovery potential Overall needs probably a long term for long-term care 09/18/19: Insomnia is an issue Worked with PT today but seems to take a lot of naps during the day which disrupts the nighttime sleeping No pain is reported 09/17/19: Pt sleeps most of the time No major changes No bloody stools Off of Lovenox, Coumadin and Aspirin Second GI bleed in the last few weeks 09/16/19: No bloody stools today Hgb stable 10.3 Is not strong enough to undergo C-scope prep Dr Flores saw him this morning Holding ASA Lovenox Coumadin Had GI at [place] also Decreased cognition 09/15/19: Patient had been doing pretty well when I rounded No more nausea and vomiting like yesterday Tube feeding was restarted slowly I stopped the Clinimix since tube feedings were started N.p.o. remains due to barium swallow oral intake is not an option due to aspirat ion risk Carotid ultrasound shows 100% occlusion on the right side After rounds he was noted to have black tarry stools and a great deal of it he remained stable so I stop the Coumadin and Lovenox and aspirin updated cardiology regarding this INR 1.[address] Flores general surgery was consulted and checked hemoglobin and hematocrit. 09/14/19: Had nausea and vomiting all last night Needs IV fluids gently so we'll start that today Urinary incontinence noted No fecal incontinence Holding tube feedings for right now Barium swallow today at 11:30 INR 1.4 will increase dose and provide Lovenox 09/13/19: Patient doing pretty well today Sleeping currently Therapy worked with him today Modified Barium Swallow scheduled Hemoglobin 9.6 Disoriented at times Bowels moved yesterday Conferred with RN Reviewed Therapy notes Checked Meds and Labs Review of Systems General: Fatigue, Malaise Neurological: Weakness Objective Exam Vital Signs Vital Signs Date Time Temp Pulse Resp B/P (MAP) Pulse Ox O2 Delivery O2 Flow Rate FiO2 09/25/19 20:10 Room Air 09/25/19 16:29 36.2 90 20 114/67 (83) 96 Capillary Refill : Less Than 3 SecondsLess Than 3 Seconds General Appearance: No Apparent Distress, WD/WN, Chronically ill HEENT: PERRL/EOMI, Normal ENT Inspection, Pharynx Normal Neck: Full Range of Motion, Normal Inspection, Non Tender, Supple, Carotid Bruit Respiratory: Chest Non Tender, Lungs Clear, Normal Breath Sounds, No Accessory Muscle Use, No Respiratory Distress Cardiovascular: No Edema, No Gallop, No JVD, No Murmur, Normal Peripheral Pulse s, Irregularly Irregular Gastrointestinal: Normal Bowel Sounds, No Organomegaly, No Pulsatile Mass, Non Tender, Soft Back: Normal Inspection, No CVA Tenderness, No Vertebral Tenderness Extremity: Normal Capillary Refill, Normal Inspection, Normal Range of Motion, Non Tender, No Calf Tenderness, Pedal Edema Neurologic/Psychiatric: Alert, Oriented x3, Normal Mood/Affect, art glass setter II-XII Norm as Tested, Aphasia, Facial Droop (left), Motor Weakness (left sided) Skin: Normal Color, Warm/Dry Lymphatic: No Adenopathy Results/Procedures Lab Patient resulted labs reviewed. FIM Transfers Therapy Code Descriptions/Definitions Functional [place] Measure: 0=Not Assessed/NA 4=Minimal Assistance 1=Total Assistance 5=Supervision or Setup 2=Maximal Assistance 6=Modified [place] 3=Moderate Assistance 7=Complete IndependenceSCALE: Activities may be completed with or without assistive devices. 2-Feujsmlcor-fpugyld completes the activity by him/herself with no assistance from a helper. 5-Set-up or Clean-up Assistance-helper sets up or cleans up; patient completes activity. [place] assists only prior to or following the activity. 4-Supervision or Touching Assistance-helper provides verbal cues and/or touching/steadying and/or contact guard assistance as patient completes activity. Assistance may be provided throughout the activity or intermittently. 3-Partial/Moderate Assistance-helper does LESS THAN HALF the effort. [place] lifts, holds or supports trunk or limbs, but provides less than half the effort. 2-Substantial/Maximal Assistance-helper does MORE THAN HALF the effort. [place] lifts or holds trunk or limbs and provides more than half the effort. 0-Qlhyyacxs-zekmtm does ALL the effort. Patient does none of the effort to complete the activity. Or, the assistance of 2 or more helpers is required for the patient to complete the activity. If activity was not attempted, code reason: 7-Patient Refused. 9-Not Applicable-not attempted and the patient did not perform the activity bef ore the current illness, exacerbation or injury. 10-Not Attempted due to Environmental Limitations-(lack of equipment, weather r estraints, etc.). 88-Not Attempted due to Medical Conditions or Safety Concerns. Roll Left to Right (QC): 3 Sit to Lying (QC): 2 Sit to Stand (QC): 2 Chair/Ljw-lb-Ambys Xfer(QC): 2 Car Transfer (QC): 1 Gait Training Does the Patient Walk?: No and Walking Goal NOT indicated Walk 10 feet (QC): 88 Walk 50 ft with 2 Turns(QC): 88 Walk 150 ft (QC): 88 Walking 10ft/uneven surface-QC: 88 Wheelchair Training Does the Pt Use a Wheelchair?: Yes Distance: 150'x2 Wheel 50 ft with 2 turns (QC): 2 (mod assist to guide chair.) Wheel 150 ft (QC): 1 Type of Wheelchair: Manual Stair Training 1 Step (curb) (QC): 88 4 Steps (QC): 88 12 Steps (QC): 88 Balance Picking up an Object (QC): 88 ADL-Treatment Eating (QC): 88 (See ACCOUNTANT ASSISTANT notes) Oral Hygiene (QC): 5 (s/u in w/c in front of sink. Pt able to take dentation out and completes packet opening with s/u and cues. ) Bathing Location: Chest, Abdomen, Perineal Area Shower/Bathe Self (QC): 1 (TD, Ax2 for bathing in bed. ) Upper Body Dressing (QC): 2 (OT assisted pt with donning shirt onto LUE and over head, OT held open R sleeve and pt able to thread RUE. OT assisted pt with managing shirt down.) Lower Body Dressing (QC): 1 (assist x2 during stand.) On/Off Footwear (QC): 1 (dependent to don tedhose and gripper socks.) Toileting Hygiene (QC): 1 (brief changed due to incontinence of bladder.) Toilet Transfer (QC): 88 (Using bedpan) Assessment/Plan Assessment and Plan Assess & Plan/Chief Complaint Assessment: CVA Left sided weakness Left sided neglect PEG tube status Dysphagia Aspiration hx with PNA CAD AF Coumadin treatment GIB 09/14/19 Plan: IRF protocol ST to work on dysphagia TF to be maintained Coumadin treatment Cardiology evaluation 09/13/19: Continue aggressive treatment Barium Swallow Monitor Hemoglobin 09/14/19: Give gentle IV fluids Increase INR with Coumadin with Lovenox bridge Barium swallow today 09/15/2019: Monitor GI bleed Hold Coumadin and Lovenox and aspirin Hold tube feedings Consult general surgery for endoscopies Maintain n.p.o. status due to aspiration risk 09/16/19: Monitor Hgb NPO Aspiration risk TF gently 09/17/19: No major changes Sleeping most of the time Stay off blood thinners due to second GI bleed 09/18/19: Insomnia treatment Continue aggressive physical therapy 09/19/19: Disposition will be discussed in team conference Tube feedings are tolerated well No more bloody stools Scrotum seems to be bleeding at times 09/19/19: Continue tube feedings of 1 can every 3 hours Sleeps most of the time No more bloody stools Aspirin was restarted Two GI bleeds in less than 2 weeks precludes restarting Coumadin 09/21/19: No more bloody stools Bowels are now light brown Coccyx has alevan to help heal 09/22/19: TF working well when using 1 can at a time No pain reported Continue therapy 09/23/19: Maintain TF for now 1 can at at time Fall risk IRF protocol 09/24/19: Monitor orthostasis Monitor hemoglobin Appreciate Dietary input 09/25/19: Replace ROLANDO hose to limit orthostasis Increasing PEG tube fluid Noted bowel and bladder dysfunction today 09/26/19: TF to continue Increase therapy Monitor for pain and falls (1) CVA (cerebral vascular accident) (2) Atrial fibrillation with normal ventricular rate (3) CAD (coronary artery disease) (4) Stented coronary artery (5) Dysphagia (6) Left-sided weakness (7) At risk for aspiration (8) PEG (percutaneous endoscopic gastrostomy) status (9) On warfarin therapy (10) Left-sided neglect (11) Facial droop KENZIE MORENO DO Sep 27, 2019 08:25
--- NOTE | 2019-09-27 08:26 | PM&R Progress Note ---
Subjective HPI/CC On Admission Date Seen by Provider: Sep 27, 2019 Time Seen by Provider: 08:45 Subjective/Events-last exam 09/27/19: Went from bed to chair without a Sarah-lift today More alert today Had a BM three days ago so will start laxatives No nausea or vomiting Tolerating tube feedings Lovenox 40 Mg started for DVT prophylaxis He just can't seem to tolerate the therapeutic dose for AFIB because of GI bleeds 09/26/19: Insomnia much improved he slept very well last night Bowels are moving Tube feedings are tolerated since it is only one can at a time No falls Appears to be more motivated today 09/25/19: BP remains a little bit low, will replace ROLANDO hose Bowel and bladder incontinence noted today Peg tub will be utilized for increased fluid intake 09/24/19: Holding Lopressor due to orthostasis during PT today BP 125/70 after orthostasis episode resolved No nausea or vomiting Regular rhythm on exam 09/23/19: Tolerating TF well Lethargic is chronic No pain reported 09/22/19: BM yesterday Tolerating TF well No pain reported 09/21/19: Pt more talkative today No more bloody stools Two bowel movements last night were brown Decubitus ulcer on coccyx being monitored and managed 09/20/19: Pt sleeping most of the time Participating in therapy Tube feedings of one can every three hours is working a lot better for him, he is tolerating it better No more bloody stools Cardiology restarted Aspirin but Coumadin will continue to be held because he has had two GI bleeds in the past two weeks and cant withstand a colonoscopy prep Very complex case 09/19/19: Pt sleeps most of the time Will discuss disposition, I doubt any recovery potential Overall needs probably a prison for long-term care 09/18/19: Insomnia is an issue Worked with PT today but seems to take a lot of naps during the day which disrupts the nighttime sleeping No pain is reported 09/17/19: Pt sleeps most of the time No major changes No bloody stools Off of Lovenox, Coumadin and Aspirin Second GI bleed in the last few weeks 09/16/19: No bloody stools today Hgb stable 10.3 Is not strong enough to undergo C-scope prep Dr Flores saw him this morning Holding ASA Lovenox Coumadin Had GI at [place] also Decreased cognition 09/15/19: Patient had been doing pretty well when I rounded No more nausea and vomiting like yesterday Tube feeding was restarted slowly I stopped the Clinimix since tube feedings were started N.p.o. 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 Flores general surgery was consulted and checked hemoglobin and hematocrit. 09/14/19: Had nausea and vomiting all last night Needs IV fluids gently so we'll start that today Urinary incontinence noted No fecal incontinence Holding tube feedings for right now Barium swallow today at 11:30 INR 1.4 will increase dose and provide Lovenox 09/13/19: Patient doing pretty well today Sleeping currently Therapy worked with him today Modified Barium Swallow scheduled Hemoglobin 9.6 Disoriented at times Bowels moved yesterday Conferred with RN Reviewed Therapy notes Checked Meds and Labs Review of Systems General: Fatigue, Malaise Neurological: Weakness Objective Exam Vital Signs Vital Signs Date Time Temp Pulse Resp B/P (MAP) Pulse Ox O2 Delivery O2 Flow Rate FiO2 09/27/19 20:10 Room Air 09/27/19 16:30 36.2 90 16 131/62 (85) 97 Capillary Refill : Less Than 3 SecondsLess Than 3 Seconds General Appearance: No Apparent Distress, WD/WN, Chronically ill HEENT: PERRL/EOMI, Normal ENT Inspection, Pharynx Normal Neck: Full Range of Motion, Normal Inspection, Non Tender, Supple, Carotid Bruit Respiratory: Chest Non Tender, Lungs Clear, Normal Breath Sounds, No Accessory Muscle Use, No Respiratory Distress Cardiovascular: No Edema, No Gallop, No JVD, No Murmur, Normal Peripheral Pulses, Irregularly Irregular Gastrointestinal: Normal Bowel Sounds, No Organomegaly, No Pulsatile Mass, Non Tender, Soft Back: Normal Inspection, No CVA Tenderness, No Vertebral Tenderness Extremity: Normal Capillary Refill, Normal Inspection, Normal Range of Motion, Non Tender, No Calf Tenderness, Pedal Edema Neurologic/Psychiatric: Alert, Oriented x3, Normal Mood/Affect, handle bar assembler II-XII Norm as Tested, Aphasia, Facial Droop (left), Motor Weakness (left sided) Skin: Normal Color, Warm/Dry Lymphatic: No Adenopathy Results/Procedures Lab Patient resulted labs reviewed. FIM Transfers Therapy Code Descriptions/Definitions Functional [place] Measure: 0=Not Assessed/NA 4=Minimal Assistance 1=Total Assistance 5=Supervision or Setup 2=Maximal Assistance 6=Modified [place] 3=Moderate Assistance 7=Complete IndependenceSCALE: Activities may be completed with or without assistive devices. 0-Inthoqihat-pmiqpae completes the activity by him/herself with no assistance from a helper. 5-Set-up or Clean-up Assistance-helper sets up or cleans up; patient completes activity. [place] assists only prior to or following the activity. 4-Supervision or Touching Assistance-helper provides verbal cues and/or touching/steadying and/or contact guard assistance as patient completes activity. Assistance may be provided throughout the activity or intermittently. 3-Partial/Moderate Assistance-helper does LESS THAN HALF the effort. [place] lifts, holds or supports trunk or limbs, but provides less than half the effort. 2-Substantial/Maximal Assistance-helper does MORE THAN HALF the effort. [place] lifts or holds trunk or limbs and provides more than half the effort. 3-Iobsnblfc-wzaqoh does ALL the effort. Patient does none of the effort to complete the activity. Or, the assistance of 2 or more helpers is required for the patient to complete the activity. If activity was not attempted, code reason: 7-Patient Refused. 9-Not Applicable-not attempted and the patient did not perform the activity before the current illness, exacerbation or injury. 10-Not Attempted due to Environmental Limitations-(lack of equipment, weather restraints, etc.). 88-Not Attempted due to Medical Conditions or Safety Concerns. Roll Left to Right (QC): 3 Sit to Lying (QC): 2 Sit to Stand (QC): 2 Chair/Nat-zu-Gweaf Xfer(QC): 2 Car Transfer (QC): 1 Gait Training Does the Patient Walk?: No and Walking Goal NOT indicated Walk 10 feet (QC): 88 Walk 50 ft with 2 Turns(QC): 88 Walk 150 ft (QC): 88 Walking 10ft/uneven surface-QC: 88 Wheelchair Training Does the Pt Use a Wheelchair?: Yes Distance: 150'x2 Wheel 50 ft with 2 turns (QC): 2 (mod assist to guide chair.) Wheel 150 ft (QC): 1 Type of Wheelchair: Manual Stair Training 1 Step (curb) (QC): 88 4 Steps (QC): 88 12 Steps (QC): 88 Balance Picking up an Object (QC): 88 ADL-Treatment Eating (QC): 88 (See FARM EQUIPMENT MECHANIC APPRENTICE notes) Oral Hygiene (QC): 5 (s/u in w/c in front of sink. Pt able to take dentation out and completes packet opening with s/u and cues. ) Bathing Location: Chest, Abdomen, Perineal Area Shower/Bathe Self (QC): 1 (TD, Ax2 for bathing in bed. ) Upper Body Dressing (QC): 2 (OT assisted pt with donning shirt onto LUE and over head, OT held open R sleeve and pt able to thread RUE. OT assisted pt with managing shirt down.) Lower Body Dressing (QC): 1 (assist x2 during stand.) On/Off Footwear (QC): 1 (dependent to don tedhose and gripper socks.) Toileting Hygiene (QC): 1 (brief changed due to incontinence of bladder.) Toilet Transfer (QC): 88 (Using bedpan) Assessment/Plan Assessment and Plan Assess & Plan/Chief Complaint Assessment: CVA Left sided weakness Left sided neglect PEG tube status Dysphagia Aspiration hx with PNA CAD AF Coumadin treatment GIB 09/14/19 Plan: IRF protocol ST to work on dysphagia TF to be maintained Coumadin treatment Cardiology evaluation 09/13/19: Continue aggressive treatment Barium Swallow Monitor Hemoglobin 09/14/19: Give gentle IV fluids Increase INR with Coumadin with Lovenox bridge Barium swallow today 09/15/2019: Monitor GI bleed Hold Coumadin and Lovenox and aspirin Hold tube feedings Consult general surgery for endoscopies Maintain n.p.o. status due to aspiration risk 09/16/19: Monitor Hgb NPO Aspiration risk TF gently 09/17/19: No major changes Sleeping most of the time Stay off blood thinners due to second GI bleed 09/18/19: Insomnia treatment Continue aggressive physical therapy 09/19/19: Disposition will be discussed in team conference Tube feedings are tolerated well No more bloody stools Scrotum seems to be bleeding at times 09/19/19: Continue tube feedings of 1 can every 3 hours Sleeps most of the time No more bloody stools Aspirin was restarted Two GI bleeds in less than 2 weeks precludes restarting Coumadin 09/21/19: No more bloody stools Bowels are now light brown Coccyx has alevan to help heal 09/22/19: TF working well when using 1 can at a time No pain reported Continue therapy 09/23/19: Maintain TF for now 1 can at at time Fall risk IRF protocol 09/24/19: Monitor orthostasis Monitor hemoglobin Appreciate Dietary input 09/25/19: Replace ROLANDO hose to limit orthostasis Increasing PEG tube fluid Noted bowel and bladder dysfunction today 09/26/19: TF to continue Increase therapy Monitor for pain and falls 09/27/19: TF continues and doing well No pain reported Fall risk (1) CVA (cerebral vascular accident) (2) Atrial fibrillation with normal ventricular rate (3) CAD (coronary artery disease) (4) Stented coronary artery (5) Dysphagia (6) Left-sided weakness (7) At risk for aspiration (8) PEG (percutaneous endoscopic gastrostomy) status (9) On warfarin therapy (10) Left-sided neglect (11) Facial droop KENZIE MORENO DO Sep 27, 2019 08:26
--- NOTE | 2019-09-27 08:52 | Physical Therapy Daily Note ---
PT Daily Note-Current Subjective Patient in WC in bathroom, already working with OT, has no complaints of pain, will be co-treating with OT due to poor patient mobility, strength, endurance, sitting and standing balance, left hemiparesis, pushers syndrome, the need to coordinate UE and LE during activity. Appearance Patient in recliner post tx with legs elevated, has nurse call, phone tray, all needs met. Mental Status Patient Orientation: Person, Unable to Assess, [place] Transfers SCALE: Activities may be completed with or without assistive devices. 1-Kbapgevshx-itgberc completes the activity by him/herself with no assistance from a helper. 5-Set-up or Clean-up Assistance-helper sets up or cleans up; patient completes activity. [place] assists only prior to or following the activity. 4-Supervision or Touching Assistance-helper provides verbal cues and/or touching/steadying and/or contact guard assistance as patient completes activity. Assistance may be provided throughout the activity or intermittently. 3-Partial/Moderate Assistance-helper does LESS THAN HALF the effort. [place] lifts, holds or supports trunk or limbs, but provides less than half the effort. 2-Substantial/Maximal Assistance-helper does MORE THAN HALF the effort. [place] lifts or holds trunk or limbs and provides more than half the effort. 3-Rbyhwhkoc-errykf does ALL the effort. Patient does none of the effort to complete the activity. Or, the assistance of 2 or more helpers is required for the patient to complete the activity. If activity was not attempted, code reason: 7-Patient Refused. 9-Not Applicable-not attempted and the patient did not perform the activity before the current illness, exacerbation or injury. 10-Not Attempted due to Environmental Limitations-(lack of equipment, weather restraints, etc.). 88-Not Attempted due to Medical Conditions or Safety Concerns. Sit to Stand (QC): 2 Chair/Vbu-gd-Yripo Xfer(QC): 2 Patient propelled WC to therapy gym with max assist 150', stood x3 with assist of 3 max assist, leans heavily to the left side, if he is holding a hand on the right side he is not able to push to the left side like he could if he was holding onto the parallel bars. Patient practiced WC mobility again for 200', 150' with mod assist, concentrated on using right foot to steer and help propel forward. Then stand pivot max assist to recliner and set up. Treatments PT performed WC mobility, transfers, standing, OT assisted with standing and UE positioning and safety during standing. Assessment Current Status: Poor Progress Minimal progress with WC mobility PT Short Term Goals Short Term Goals Time Frame: Sep 19, 2019 Roll Left & Right: 2 Sit to lyin Lying to sitting on side of be: 2 Sit to stand: 2 Chair/juf-jj-sghrr transfer: 2 Wheel 50ft w/2 turns: 2 Wheel 150 feet: 2 PT Traffic Circuit Engineer Goals Traffic Circuit Engineer Goals PT Traffic Circuit Engineer Goals Time Frame: Oct 03, 2019 Roll Left & Right (QC): 3 Sit to Lying (QC): 3 Lying-Sitting on Side/Bed(QC): 3 Sit to Stand (QC): 3 Chair/Gmy-oa-Zwylb Xfer(QC): 3 Toilet Transfer (QC): 3 Car Transfer (QC): 3 Does the Patient Walk: No and Walking Goal NOT indicated Walk 10 feet (QC): 88 Walk 50ft with 2 Turns (QC): 88 Walk 150 ft (QC): 88 Walking 10ft on Uneven Surface: 88 1 Step (curb) (QC): 88 4 Steps (QC): 88 12 Steps (QC): 88 Picking up an Object (QC): 88 Wheel 50 feet with 2 turns (QC: 3 Wheel 150 feet: 3 PT Plan Problem List Problem List: Activity Tolerance, Functional Strength, Safety, Balance, Gait, Transfer, Bed Mobility, ROM Treatment/Plan Treatment Plan: Continue Plan of Care Treatment Plan: Bed Mobility, Education, Functional Activity Aliyah, Functional Strength, Group Therapy, Gait, Safety, Therapeutic Exercise, Transfers Treatment Duration: Oct 03, 2019 Frequency: At least 5 of 7 days/Wk (IRF) Estimated Hrs Per Day: 1.5 hours per day Patient and/or Family Agrees t: Yes Safety Risks/Education Patient Education: Transfer Techniques, Correct Positioning, W/C Management, Safety Issues Teaching Recipient: Patient Teaching Methods: Demonstration, Discussion Response to Teaching: Reinforcement Needed Time/GCodes Time In: 0800 Time Out: 0900 Total Billed Treatment Time: 60 Total Billed Treatment 1 visit FA 30' WCH 30' co-treated with OT for 30' from [id number] RUY MCGRATH PT Sep 27, 2019 08:52
--- NOTE | 2019-09-27 10:52 | Occupational Ther Daily Note ---
OT Current Status-Daily Note Subjective Pt alert, lying at a diagonal in bed. No c/o pain at this time. Pt agrees to therapy. Mental Status/Objective Patient Orientation: Person, Time, Situation Attachments: PEG Tube ADL-Treatment Pt incontinent of bowel/bladder. Pt set up for sponge bath in bed. Pt able to cleanse R LE without cues, requires cues to cleanse upper body (except R UE) and jean-pierre area. Pt is able to roll with min A toward L side, mod to max A to R side. Assist x2 to stay onto sides to be able to cleanse buttocks and don/doff pants. After threading pants over feet/knees, pt is able to pull up to buttocks then assist is needed to roll and pull rest of way. Mod A for supine <--> EOB. Then with physical and verbal cues, pt able to sit EOB SBA to CGA. Max A to don/doff shirt though pt was able to sit up on EOB and assist to thread R arm and head. With cues and mod A complete SPT with assist from 2nd person for safety. Pt sat at sink and completed oral care. Therapy Code Descriptions/Definitions Functional [place] Measure: 0=Not Assessed/NA 4=Minimal Assistance 1=Total Assistance 5=Supervision or Setup 2=Maximal Assistance 6=Modified [place] 3=Moderate Assistance 7=Complete IndependenceSCALE: Activities may be completed with or without assistive devices. 0-Lbprtcthee-pctxlfs completes the activity by him/herself with no assistance from a helper. 5-Set-up or Clean-up Assistance-helper sets up or cleans up; patient completes activity. [place] assists only prior to or following the activity. 4-Supervision or Touching Assistance-helper provides verbal cues and/or touching/steadying and/or contact guard assistance as patient completes activity. Assistance may be provided throughout the activity or intermittently. 3-Partial/Moderate Assistance-helper does LESS THAN HALF the effort. [place] lifts, holds or supports trunk or limbs, but provides less than half the effort. 2-Substantial/Maximal Assistance-helper does MORE THAN HALF the effort. [place] lifts or holds trunk or limbs and provides more than half the effort. 8-Rdqiabtdz-glxiis does ALL the effort. Patient does none of the effort to complete the activity. Or, the assistance of 2 or more helpers is required for the patient to complete the activity. If activity was not attempted, code reason: 7-Patient Refused. 9-Not Applicable-not attempted and the patient did not perform the activity before the current illness, exacerbation or injury. 10-Not Attempted due to Environmental Limitations-(lack of equipment, weather restraints, etc.). 88-Not Attempted due to Medical Conditions or Safety Concerns. Oral Hygiene (QC): 5 Bathing Location: L Arm, R Upper Leg, R Lower Leg (including foot), Chest, Abdomen, Perineal Area Shower/Bathe Self (QC): 1 Upper Body Dressing (QC): 2 Lower Body Dressing (QC): 1 On/Off Footwear: 2 Toileting Hygiene (QC): 1 Other Treatment OT/PT co-treat ([id number]), skills of 2 clinicians required for skilled neuromuscular retraining for standing, transfers and mobility. PT working on standing. OT working on L UE/LE placement during standing. See PT notes for standing progress. After session, pt left in care of PT. All needs met. OT Short Term Goals Short Term Goals Time Frame: Sep 19, 2019 Shower/bathe self: 2 Upper body dressin Lower body dressin OT Zoogler Goals Zoogler Goals Time Frame: Oct 03, 2019 Eating (QC): 4 Oral Hygiene (QC): 4 Toileting Hygiene (QC): 3 Shower/Bathe Self (QC): 3 Upper Body Dressing (QC): 3 Lower Body Dressing (QC): 2 On/Off Footwear (QC): 2 Additional Goals: 1-Demonstrate ADL Tasks, 2-Verbalize Understanding, 3-Impro veStrength/Aliyah 1=Demonstrate adherence to instructed precautions during ADL tasks. 2=Patient will verbalize/demonstrate understanding of assistive devices/modifications for ADL. 3=Patient will improve strength/tolerance for activity to enable patient to perform ADL's. OT Education/Plan Problem List/Assessment Assessment: Decreased Activ Tolerance, Decreased Safety Aware, Decreased UE Strength, Impaired Bed Mobility, Impaired Cognition, Impaired Coordination, I mpaired Funct Balance, Impaired I ADL's, Impaired Self-Care Skills, Restricted Funct UE ROM, Visual-Perceptual Deficit (left neglect) Discharge Recommendations Plan/Recommendations: Continue POC Treatment Plan/Plan of Care Patient would benefit from OT for education, treatment and training to promote independence in ADL's, mobility, safety and/or upper extremity function for ADL's. Plan of Care: ADL Retraining, Caregiver Training, Functional Mobility, Group Exercise/Act as Ind, Orthotic Fitting/Training, UE Funct Exercise/Act, UE Neuromus Re-Ed/Coord, Visual/Perceptual Retrain, W/C Management Training Treatment Duration: Oct 03, 2019 Frequency: At least 5 of 7 days/Wk (IRF) Estimated Hrs Per Day: 1.5 hours per day Agreement: Yes Rehab Potential: Poor Time/GCodes Start Time: 07:15 Stop Time: 08:30 Total Time Billed (hr/min): 75 Billed Treatment Time 1 visit- ADL 3 (45 min) NM 2 (30 min) co-treat with PT [id number], individual [id number] CALLIE LARIOS Sep 27, 2019 10:52
[2019-09-27] MEDS: SUCRALFATE 1 GM (CARAFATE) TAB PO SCH ×2 (11:09→18:27)
[2019-09-27] MEDS: LACTOBACILLUS ACIDOPHILUS (PROBIOTIC) CAPSULE PEG SCH ×2 (11:10→21:26)
[2019-09-27] MEDS: ASPIRIN 81 MG CHEW (CHILDREN'S ASA) PO SCH (11:10)
[2019-09-27] MEDS: ENOXAPARIN 40 MG/0.4 ML (LOVENOX) SYR SC SCH (11:11)
[2019-09-27] MEDS: SCOPOLAMINE 1.5 MG (TRANSDERM-SCOP) PATCH TD SCH (11:11)
[2019-09-27] MEDS: SCOPOLAMINE PATCH REMOVAL TP SCH (11:12)
[2019-09-27] MEDS: PANTOPRAZOLE 2 MG/ML LIQUID 200 ML (PROTONIX) PEG SCH ×6 (11:16→21:39)
--- NOTE | 2019-09-27 11:16 | Speech Therapy Daily Note ---
Speech Daily Progress Note Subjective Date Seen by Provider: Sep 27, 2019 Time Seen by Provider: 00:30 Patient was resting in his recliner after just receiving his PEG feeding. Patient was alert and requested to go to the restroom. Nurse and aid were called to assist patient. Objective Patient completed q/a related to his needs. Patient demo utilization of his roberts and call light with assistance to use at 70%. Assessment Assessment Current Status: Fair Progress Treatment Plan Continue Plan of Care Speech Short Term Goals Short Term Goals Short Term Goals 1) Patient will complete expressive language exercises at 90% or greater with minimal cues. 2) Patient will complete OME x10 with 90% or greater with minimal cues. 3) Patient will complete oral trials with 90% or greater without s/s of aspiration. Speech Coagulation Operator Goals Coagulation Operator Goals Patient will improve speech production for effective communication of his wants/ needs. Patient will maintain adequate nutrition/hydration via PEG and/or oral intake. Speech-Plan Patient/Family Goals Patient/Family Goals: Patient will be discharging to a SNF due to his level of assistance required for his daily needs. Treatment Plan Speech Therapy Treatment Plan: Continue Plan of Care Treatment Duration: Sep 28, 2019 Frequency: 4 times per week (Patient will receive skilled ST 4-5x per week) Estimated Hrs Per Day: .5 hour per day Rehab Potential: Poor Barriers to Learning: Patient's CVA related deficits Pt/Family Agrees to Plan: Yes Safety Risks/Education Teaching Recipient: Patient Teaching Methods: Demonstration, Discussion Response to Teaching: Verbalize Understanding, Return Demonstration Education Topics Provided: Continued safety within his room and communication of wants/needs. Time Speech Therapy Time In: 09:30 Speech Therapy Time Out: 10:00 Total Billed Time: 30 Billed Treatment Time 1VONDA BETHANIA ST Sep 27, 2019 11:16
[2019-09-27] MEDS: SENNA W/DOCUSATE (SENOKOT S) TABLET PO SCH ×2 (11:18→22:03)
[2019-09-27] MEDS: polyethylene glycoL POWDER 17 GM (MIRALAX) PACK PO SCH ×2 (11:18→22:03)
[2019-09-27] MEDS: DOCUSATE SODIUM 100 MG (COLACE) CAP PO SCH ×2 (11:19→22:03)
--- NOTE | 2019-09-27 13:18 | NUR ---
"RD ASSESSMENT PMHx: dysphagia; afib; HTN; CAD: hypercholesterolemia; stroke (08/02/2019) PT INTERACTION: Pt was awake and pleasant during nutrition follow-up. Pt states he currently has no issues with his tube feeding and is tolerating it well. Note pt has current TF regimen of: 1 can Jevity 1.5 x6 can/day. Flush with 70ml water before and after each bolus. Total provides 2130 kcal (26 kcal/kg); 91 g Pro (1.1 g Pro/kg); and 1980ml free water (with flushes). Pt states no issues with nausea, vomiting, constipation, or diarrhea since last assessment. Note last BM was 09/23, and pt currently on bowel regimen of colace BID; senna BID; and miralax BID, per chart review. ABNORMAL NUTRITION-RELATED LAB VALUES LOW: Pro 6.3 HIGH: Est. kcal needs: 2024 kcal | 25 kcal/kg Est. Pro needs: 97 g Pro | 1.2 g Pro/kg PES STATEMENT: Inadequate oral intake (NI-2.1) related to NPO status as evidenced by chart review INTERVENTION: Note pt is currently NPO, and has a PEG tube. Would recommend continuation of current TF regimen of 6 cans of Jevity 1.5 per day. Flush with 70ml water before and after each bolus, for hydration status. 6 cans of Jevity 1.5 per day would provide 2130 kcal (26 kcal/kg); 91 g Pro (1.1 g Pro/kg); and 1980ml free water (with flushes). Will continue to follow and reassess as pt needs, intake, and status change. MONITOR/EVALUATE: TF tolerance; Plan of Care; Hydration Status; Weight Status; Lab Values Nima Carrasco, MS, RD, LD"
--- NOTE | 2019-09-27 14:20 | Physical Therapy Daily Note ---
PT Daily Note-Current Subjective Patient in bed pre tx, agrees to PT, no complaints of pain. Appearance Patient in bed post tx with nurse call, phone, tray, all needs met. Mental Status Patient Orientation: Person, Confused Transfers SCALE: Activities may be completed with or without assistive devices. 2-Jlmsxduzdp-uojmleb completes the activity by him/herself with no assistance from a helper. 5-Set-up or Clean-up Assistance-helper sets up or cleans up; patient completes activity. [place] assists only prior to or following the activity. 4-Supervision or Touching Assistance-helper provides verbal cues and/or touching/steadying and/or contact guard assistance as patient completes activity. Assistance may be provided throughout the activity or intermittently. 3-Partial/Moderate Assistance-helper does LESS THAN HALF the effort. [place] lifts, holds or supports trunk or limbs, but provides less than half the effort. 2-Substantial/Maximal Assistance-helper does MORE THAN HALF the effort. [place] lifts or holds trunk or limbs and provides more than half the effort. 5-Suyvipvho-esackx does ALL the effort. Patient does none of the effort to complete the activity. Or, the assistance of 2 or more helpers is required for the patient to complete the activity. If activity was not attempted, code reason: 7-Patient Refused. 9-Not Applicable-not attempted and the patient did not perform the activity before the current illness, exacerbation or injury. 10-Not Attempted due to Environmental Limitations-(lack of equipment, weather restraints, etc.). 88-Not Attempted due to Medical Conditions or Safety Concerns. Exercises Supine Ex: Ankle pumps, Quad Set, Glut sets, Heel Slides, Short Arc Quads, Straight leg raise, Hip abd/add Supine Reps: 20 (RLE) LLE stretching/PROM in all planes Treatments ROM Assessment Current Status: Poor Progress Patient has trouble following directions, needs constant cues to perform exerc ises correctly PT Short Term Goals Short Term Goals Time Frame: Sep 19, 2019 Roll Left & Right: 2 Sit to lyin Lying to sitting on side of be: 2 Sit to stand: 2 Chair/skk-go-tahyk transfer: 2 Wheel 50ft w/2 turns: 2 Wheel 150 feet: 2 PT Electronic Operator Goals Penitentiary Goals PT Penitentiary Goals Time Frame: Oct 03, 2019 Roll Left & Right (QC): 3 Sit to Lying (QC): 3 Lying-Sitting on Side/Bed(QC): 3 Sit to Stand (QC): 3 Chair/Aid-by-Xowrh Xfer(QC): 3 Toilet Transfer (QC): 3 Car Transfer (QC): 3 Does the Patient Walk: No and Walking Goal NOT indicated Walk 10 feet (QC): 88 Walk 50ft with 2 Turns (QC): 88 Walk 150 ft (QC): 88 Walking 10ft on Uneven Surface: 88 1 Step (curb) (QC): 88 4 Steps (QC): 88 12 Steps (QC): 88 Picking up an Object (QC): 88 Wheel 50 feet with 2 turns (QC: 3 Wheel 150 feet: 3 PT Plan Problem List Problem List: Activity Tolerance, Functional Strength, Safety, Balance, Gait, Transfer, Bed Mobility, ROM Treatment/Plan Treatment Plan: Continue Plan of Care Treatment Plan: Bed Mobility, Education, Functional Activity Aliyah, Functional Strength, Group Therapy, Gait, Safety, Therapeutic Exercise, Transfers Treatment Duration: Oct 03, 2019 Frequency: At least 5 of 7 days/Wk (IRF) Estimated Hrs Per Day: 1.5 hours per day Patient and/or Family Agrees t: Yes Safety Risks/Education Patient Education: Correct Positioning, Safety Issues Teaching Recipient: Patient Teaching Methods: Demonstration, Discussion Response to Teaching: Reinforcement Needed Time/GCodes Time In: 1400 Time Out: 1415 Total Billed Treatment Time: 15 Total Billed Treatment 1 visit EX 15' RUY MCGRATH PT Sep 27, 2019 14:20
--- NOTE | 2019-09-27 16:11 | NUR ---
CM/SS PATIENT CARE CONFERENCE Visited with both spouse and daughter, Marisela Garduno, by phone to review Summary. Both indicated understanding that patient next review would be 10/03/19, with a target discharge of Tuesday10/08/19. Regarding discharge planning, spouse and family are discussing the option of patient's care in the home. Depending on his progress during the next 11 days, family members have been asked to explore community nursing facilities of their choice for the secondary option. A barrier to a facility placement is his insurance, [employer] Gold Choice, first whether homes in their area are in network, and second whether insurance would authorize benefits for any significant period. Encouraged daughter Marisela to start looking into [facility] [place] Medicaid, likely [employer]. Patient may be a permanent placement if his recovery does not advance to him being able to stand/pivot and assist with bed mobility and toileting. Patient's spouse is unable to fully provide and they can not afford the anticipated private pay caregiver hours. Spouse Oksana has indicated her preference is that daughter Marisela and race and sports book writer work in partnership regarding next steps. Automotive Leasing Sales Representative has communicated to ARU team the importance of talking Oksana through required assistance, techniques, demonstrations while she is here so that she can make an informed decision about patient's care needs on behalf of all involved. Marisela stated they are considering changing patient's [employer] Gold Choice back to regular Medicare, informed her of the upcoming open enrollment period 11/21 to 01/14/20.
[2019-09-27 16:30] VITALS: BP 131/62
--- NOTE | 2019-09-27 18:11 | Cardiology Progress Note ---
Cardiology SOAP Progress Note Subjective: No cardiac complaints. Objective: I&O/Vital Signs 09/27/19 09/27/19 07:00 08:00 Temp 36.3 Pulse 88 Resp 20 B/P (MAP) 146/77 (100) Pulse Ox 94 O2 Delivery Room Air Room Air Constitutional: well-developed, well-nourished, other Respiratory: chest expansion is symmetric, chest is bilaterally symmetric, lungs clear to auscultation Cardiovascular: regular rate-rhythm, S1 and S2, systolic murmur Gastrointestional: soft, audible bowel sounds, other Extremities: no lower extremity edema bilateral Neurologic/Psychiatric: other Skin: No rash on exposed areas, No ulcerations on exposed areas A/P: Assessment/Dx: Hematochezia on 09/15/19 (warfarin and ASA were held previously) being managed by Dr Simon and Dr Flores 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 Dais at [facility] Records from [facility] report h/o CVA x 3 (2008, 2013 x2) H/O PE in 2016 tx at [facility] Dysphagia - PEG tube in place HTN CAD - CABG x 4 vessel in February 2016 at [facility] by Dr. Regan - quadruple bypass with VILLATORO to LAD, saphenous vein graft to OM 1, saphenous vein T graft to D1, saphenous vein graft to LPDA. 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 Has been on warfarin H/O hematology w/u at [facility] which did not show hypercoagulable state H/O acute gangrenous cholecystitis for which he underwent cholecystectomy in July 2019 at [facility] Documented h/o prostate cancer Plan: Plan: General surgery has cleared the patient for antiplatelet therapy. On aspirin. Patient is also on Coumadin. Monitor labs Thank you for your consultation. Please call me if you have any questions. Cresencio Sweet MD, FACP, FACC, FSCAI, FHRS, CCDS Interventional Cardiology Cardiac Electrophysiology Vascular Medicine and Endovascular Interventions Miguel SWEET MD Sep 27, 2019 18:11
[2019-09-27] MEDS: ALPRAZolam 0.25 MG (XANAX) TAB PO PRN (21:26)
[2019-09-27] MEDS: MELATONIN 3 MG TABLET PO PRN (21:26)
[2019-09-27] MEDS: HEMORRHOIDAL SUPP (PREPARATION H) PR PRN (21:30)
[2019-09-28] MEDS: SUCRALFATE 1 GM (CARAFATE) TAB PO SCH ×6 (00:55→23:57)
[2019-09-28 05:25] VITALS: BP 131/68
[2019-09-28] MEDS: LEVOTHYROXINE 75 MCG (LEVOTHROID) TABLET PO SCH (06:18)
[2019-09-28] MEDS: DOCUSATE SODIUM 100 MG (COLACE) CAP PO SCH ×2 (07:56→20:28)
[2019-09-28] MEDS: SENNA W/DOCUSATE (SENOKOT S) TABLET PO SCH ×2 (07:56→20:28)
[2019-09-28] MEDS: PANTOPRAZOLE 2 MG/ML LIQUID 200 ML (PROTONIX) PEG SCH ×6 (07:56→20:28)
[2019-09-28] MEDS: LACTOBACILLUS ACIDOPHILUS (PROBIOTIC) CAPSULE PEG SCH ×2 (07:56→20:11)
[2019-09-28] MEDS: ASPIRIN 81 MG CHEW (CHILDREN'S ASA) PO SCH (07:57)
[2019-09-28] MEDS: ENOXAPARIN 40 MG/0.4 ML (LOVENOX) SYR SC SCH (07:57)
--- NOTE | 2019-09-28 08:32 | Occupational Ther Daily Note ---
OT Current Status-Daily Note Subjective Pt asleep in bed, difficult to wake. Nrsg in room to give meds. Checked pt's BP, 123/60. Pt agrees to therapy. Pain Numeric Pain Scale: 0-No Pain Mental Status/Objective Patient Orientation: Person, Unable to Assess ADL-Treatment Pt incontinent of bowel/baldder. Pt is able to roll with min A toward L side, mod to max A to R side. Assist x2 to stay onto sides to be able to cleanse buttocks and doff/don briefs and pants. Pt able to lift R LE, mod A to max A to thread socks. Therapy Code Descriptions/Definitions Functional [place] Measure: 0=Not Assessed/NA 4=Minimal Assistance 1=Total Assistance 5=Supervision or Setup 2=Maximal Assistance 6=Modified [place] 3=Moderate Assistance 7=Complete IndependenceSCALE: Activities may be completed with or without assistive devices. 0-Dqlhydafir-jdwbyne completes the activity by him/herself with no assistance fr om a helper. 5-Set-up or Clean-up Assistance-helper sets up or cleans up; patient completes activity. [place] assists only prior to or following the activity. 4-Supervision or Touching Assistance-helper provides verbal cues and/or touching/steadying and/or contact guard assistance as patient completes activity. Assistance may be provided throughout the activity or intermittently. 3-Partial/Moderate Assistance-helper does LESS THAN HALF the effort. [place] lifts, holds or supports trunk or limbs, but provides less than half the effort. 2-Substantial/Maximal Assistance-helper does MORE THAN HALF the effort. [place] lifts or holds trunk or limbs and provides more than half the effort. 9-Tnwlapezq-eplbxm does ALL the effort. Patient does none of the effort to complete the activity. Or, the assistance of 2 or more helpers is required for the patient to complete the activity. If activity was not attempted, code reason: 7-Patient Refused. 9-Not Applicable-not attempted and the patient did not perform the activity before the current illness, exacerbation or injury. 10-Not Attempted due to Environmental Limitations-(lack of equipment, weather restraints, etc.). 88-Not Attempted due to Medical Conditions or Safety Concerns. Lower Body Dressing (QC): 1 On/Off Footwear: 2 Toileting Hygiene (QC): 1 Other Treatment OT/PT co-treat ([id number]), skills of 2 clinicians required for neuromuscular retraining to work on mobility, L UE/LE movement, balance and transfers. PT working on transfers, sitting balance and mobility. OT working on functional transfers, dynamic/static sitting balance, L neglect and wt bearing L UE. Mod A for supine <--> EOB. With verbal cues and max A x2 pt SPT from EOB to w/c. Verbal cues for w/c mobility from room to gym. SPT from w/c to EOM, assist x2. Due to L side neglect, pt's visual perception of L side is decreased. Sitting on EOM, pt working on dynamic/static sitting balance, crossing midline and L sided awareness. Pt grasped cone with R hand from R side to L side, then L side to R side to gain awareness of L side. Noted, pt's eyes did not cross midline, but would turn head passed midline. Working to maintain an upright midline posture, required verbal, physical cues and use of mirror for visual cues. After therapy, pt left in care of PT. All needs met. Education OT Patient Education: Modified ADL techniques, Transfer techniques Teaching Recipient: Patient Teaching Methods: Demonstration, Discussion Response to Teaching: Reinforcement Needed OT Short Term Goals Short Term Goals Time Frame: Sep 19, 2019 Shower/bathe self: 2 Upper body dressin Lower body dressin OT Devulcanizer Charger Goals Devulcanizer Charger Goals Time Frame: Oct 03, 2019 Eating (QC): 4 Oral Hygiene (QC): 4 Toileting Hygiene (QC): 3 Shower/Bathe Self (QC): 3 Upper Body Dressing (QC): 3 Lower Body Dressing (QC): 2 On/Off Footwear (QC): 2 Additional Goals: 1-Demonstrate ADL Tasks, 2-Verbalize Understanding, 3- ImproveStrength/Aliyah 1=Demonstrate adherence to instructed precautions during ADL tasks. 2=Patient will verbalize/demonstrate understanding of assistive devices/modifications for ADL. 3=Patient will improve strength/tolerance for activity to enable patient to perform ADL's. OT Education/Plan Problem List/Assessment Assessment: Decreased Activ Tolerance, Decreased Safety Aware, Decreased UE Strength, Dependent Transfers, Impaired Bed Mobility, Impaired Cognition, Impaired Coordination, Impaired Funct Balance, Impaired I ADL's, Impaired Self- Care Skills, Restricted Funct UE ROM, Visual-Perceptual Deficit Discharge Recommendations Plan/Recommendations: Continue POC Treatment Plan/Plan of Care Patient would benefit from OT for education, treatment and training to promote independence in ADL's, mobility, safety and/or upper extremity function for ADL's. Plan of Care: ADL Retraining, Caregiver Training, Functional Mobility, Group Exercise/Act as Ind, Orthotic Fitting/Training, UE Funct Exercise/Act, UE Neuromus Re-Ed/Coord, Visual/Perceptual Retrain, W/C Management Training Treatment Duration: Oct 03, 2019 Frequency: At least 5 of 7 days/Wk (IRF) Estimated Hrs Per Day: 1.5 hours per day Agreement: Yes Rehab Potential: Poor Time/GCodes Start Time: 07:30 Stop Time: 08:30 Total Time Billed (hr/min): 60 Billed Treatment Time 1 visit-ADL 2 (30 min) NM 2 (30 min) co-treat with PT 30 min ([id number]) individual 30 min ([id number]) CALLIE LARIOS Sep 28, 2019 08:32
--- NOTE | 2019-09-28 08:56 | Physical Therapy Daily Note ---
PT Daily Note-Current Subjective Patient in bed pre tx, agrees to PT, has no complaints of pain (patient isn't talking today but shakes head no when asked if he has pain), will be co-treating with OT due to poor patient mobility, strength, endurance, sitting and standing balance, pushers syndrome, the need to coordinate UE and LE during activity Appearance Patient in recliner post tx with nurse call, phone, tray, legs elevated, all needs met. Mental Status Patient Orientation: Person, Unable to Assess, Non-Verbal/Aphasic Attachments: PEG Tube Transfers SCALE: Activities may be completed with or without assistive devices. 2-Qozgorhhvi-obckluj completes the activity by him/herself with no assistance from a helper. 5-Set-up or Clean-up Assistance-helper sets up or cleans up; patient completes activity. [place] assists only prior to or following the activity. 4-Supervision or Touching Assistance-helper provides verbal cues and/or touching/steadying and/or contact guard assistance as patient completes activity. Assistance may be provided throughout the activity or intermittently. 3-Partial/Moderate Assistance-helper does LESS THAN HALF the effort. [place] lifts, holds or supports trunk or limbs, but provides less than half the effort. 2-Substantial/Maximal Assistance-helper does MORE THAN HALF the effort. [place] lifts or holds trunk or limbs and provides more than half the effort. 7-Yeucystna-vevtym does ALL the effort. Patient does none of the effort to complete the activity. Or, the assistance of 2 or more helpers is required for the patient to complete the activity. If activity was not attempted, code reason: 7-Patient Refused. 9-Not Applicable-not attempted and the patient did not perform the activity before the current illness, exacerbation or injury. 10-Not Attempted due to Environmental Limitations-(lack of equipment, weather restraints, etc.). 88-Not Attempted due to Medical Conditions or Safety Concerns. Roll Left & Right (QC): 3 Sit to Lying (QC): 2 Sit to Stand (QC): 2 Chair/Mpp-uj-Pjyqh Xfer(QC): 2 Supine to sit with max assist, then stand pivot transfer to with max assist, WC mobility training to therapy gym 150' max assist, stand pivot to therapy table, practice sitting balance training and left side orientation (has left neglect) and reaching activity with cones, stand pivot to WC, more WC mobility training back to room and then stand pivot to recliner. Wheelchair Training Wheel 50 ft with 2 turns (QC): 2 Wheel 150 ft (QC): 2 Exercises left ankle stretching Treatments PT worked on bed mobility and transfers, sitting balance, ankle stretching, OT assisted with sitting balance and worked on LUE positioning and safety during balance training Assessment Current Status: Poor Progress no change in mobility, patient seems to be non verbal today but still alert PT Short Term Goals Short Term Goals Time Frame: Sep 19, 2019 Roll Left & Right: 2 Sit to lyin Lying to sitting on side of be: 2 Sit to stand: 2 Chair/fsz-qs-bvnbu transfer: 2 Wheel 50ft w/2 turns: 2 Wheel 150 feet: 2 PT Long-Term Goals Long-Term Goals PT Long-Term Goals Time Frame: Oct 03, 2019 Roll Left & Right (QC): 3 Sit to Lying (QC): 3 Lying-Sitting on Side/Bed(QC): 3 Sit to Stand (QC): 3 Chair/Yer-ss-Uxlqj Xfer(QC): 3 Toilet Transfer (QC): 3 Car Transfer (QC): 3 Does the Patient Walk: No and Walking Goal NOT indicated Walk 10 feet (QC): 88 Walk 50ft with 2 Turns (QC): 88 Walk 150 ft (QC): 88 Walking 10ft on Uneven Surface: 88 1 Step (curb) (QC): 88 4 Steps (QC): 88 12 Steps (QC): 88 Picking up an Object (QC): 88 Wheel 50 feet with 2 turns (QC: 3 Wheel 150 feet: 3 PT Plan Problem List Problem List: Activity Tolerance, Functional Strength, Safety, Balance, Gait, Transfer, Bed Mobility, ROM Treatment/Plan Treatment Plan: Continue Plan of Care Treatment Plan: Bed Mobility, Education, Functional Activity Aliyah, Functional Strength, Group Therapy, Gait, Safety, Therapeutic Exercise, Transfers Treatment Duration: Oct 03, 2019 Frequency: At least 5 of 7 days/Wk (IRF) Estimated Hrs Per Day: 1.5 hours per day Patient and/or Family Agrees t: Yes Safety Risks/Education Patient Education: Transfer Techniques, Correct Positioning, W/C Management, Safety Issues Teaching Recipient: Patient Teaching Methods: Demonstration, Discussion Response to Teaching: Reinforcement Needed Time/GCodes Time In: 0800 Time Out: 0900 Total Billed Treatment Time: 60 Total Billed Treatment 1 visit NM 30' FA 30' co-treated with OT for 30' RUY MCGRATH PT Sep 28, 2019 08:56
[2019-09-28] MEDS: polyethylene glycoL POWDER 17 GM (MIRALAX) PACK PO SCH ×2 (09:12→20:28)
--- NOTE | 2019-09-28 10:31 | PM&R Progress Note ---
Subjective HPI/CC On Admission Date Seen by Provider: Sep 28, 2019 Time Seen by Provider: 10:30 Subjective/Events-last exam 09/28/19: Needs to go to [place] No pain reported Slight smear of blood with BM so may not even be able to tolerate Lovenox DVT PPx dose 09/27/19: Went from bed to chair without a Sarah-lift today More alert today Had a BM three days ago so will start laxatives No nausea or vomiting Tolerating tube feedings Lovenox 40 Mg started for DVT prophylaxis He just can't seem to tolerate the therapeutic dose for AFIB because of GI b christianne 09/26/19: Insomnia much improved he slept very well last night Bowels are moving Tube feedings are tolerated since it is only one can at a time No falls Appears to be more motivated today 09/25/19: BP remains a little bit low, will replace ROLANDO hose Bowel and bladder incontinence noted today Peg tub will be utilized for increased fluid intake 09/24/19: Holding Lopressor due to orthostasis during PT today BP 125/70 after orthostasis episode resolved No nausea or vomiting Regular rhythm on exam 09/23/19: Tolerating TF well Lethargic is chronic No pain reported 09/22/19: BM yesterday Tolerating TF well No pain reported 09/21/19: Pt more talkative today No more bloody stools Two bowel movements last night were brown Decubitus ulcer on coccyx being monitored and managed 09/20/19: Pt sleeping most of the time Participating in therapy Tube feedings of one can every three hours is working a lot better for him, he is tolerating it better No more bloody stools Cardiology restarted Aspirin but Coumadin will continue to be held because he has had two GI bleeds in the past two weeks and cant withstand a colonoscopy prep Very complex case 09/19/19: Pt sleeps most of the time Will discuss disposition, I doubt any recovery potential Overall needs probably a [place] [facility] for long-term care 09/18/19: Insomnia is an issue Worked with PT today but seems to take a lot of naps during the day which disrupts the nighttime sleeping No pain is reported 09/17/19: Pt sleeps most of the time No major changes No bloody stools Off of Lovenox, Coumadin and Aspirin Second GI bleed in the last few weeks 09/16/19: No bloody stools today Hgb stable 10.3 Is not strong enough to undergo C-scope prep Dr Flores saw him this morning Holding ASA Lovenox Coumadin Had GI at [place] also Decreased cognition 09/15/19: Patient had been doing pretty well when I rounded No more nausea and vomiting like yesterday Tube feeding was restarted slowly I stopped the Clinimix since tube feedings were started N.p.o. 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 Flores general surgery was consulted and checked hemoglobin and hematocrit. 09/14/19: Had nausea and vomiting all last night Needs IV fluids gently so we'll start that today Urinary incontinence noted No fecal incontinence Holding tube feedings for right now Barium swallow today at 11:30 INR 1.4 will increase dose and provide Lovenox 09/13/19: Patient doing pretty well today Sleeping currently Therapy worked with him today Modified Barium Swallow scheduled Hemoglobin 9.6 Disoriented at times Bowels moved yesterday Conferred with RN Reviewed Therapy notes Checked Meds and Labs Review of Systems General: Fatigue, Malaise Neurological: Weakness Objective Exam Vital Signs Vital Signs Date Time Temp Pulse Resp B/P (MAP) Pulse Ox O2 Delivery O2 Flow Rate FiO2 09/28/19 19:28 94 09/28/19 16:30 35.8 84 16 126/63 (84) Room Air Capillary Refill : Less Than 3 SecondsLess Than 3 Seconds General Appearance: No Apparent Distress, WD/WN, Chronically ill HEENT: PERRL/EOMI, Normal ENT Inspection, Pharynx Normal Neck: Full Range of Motion, Normal Inspection, Non Tender, Supple, Carotid Bruit Respiratory: Chest Non Tender, Lungs Clear, Normal Breath Sounds, No Accessory Muscle Use, No Respiratory Distress Cardiovascular: No Edema, No Gallop, No JVD, No Murmur, Normal Peripheral Pulses, Irregularly Irregular Gastrointestinal: Normal Bowel Sounds, No Organomegaly, No Pulsatile Mass, Non Tender, Soft Back: Normal Inspection, No CVA Tenderness, No Vertebral Tenderness Extremity: Normal Capillary Refill, Normal Inspection, Normal Range of Motion, Non Tender, No Calf Tenderness, Pedal Edema Neurologic/Psychiatric: Alert, Oriented x3, Normal Mood/Affect, diamond mounter II-XII Norm as Tested, Aphasia, Facial Droop (left), Motor Weakness (left sided) Skin: Normal Color, Warm/Dry Lymphatic: No Adenopathy Results/Procedures Lab Patient resulted labs reviewed. FIM Transfers Therapy Code Descriptions/Definitions Functional Daniels Measure: 0=Not Assessed/NA 4=Minimal Assistance 1=Total Assistance 5=Supervision or Setup 2=Maximal Assistance 6=Modified Daniels 3=Moderate Assistance 7=Complete IndependenceSCALE: Activities may be completed with or without assistive devices. 5-Rpmygiuuqv-iwbiwam completes the activity by him/herself with no assistance from a helper. 5-Set-up or Clean-up Assistance-helper sets up or cleans up; patient completes a ctivity. [place] assists only prior to or following the activity. 4-Supervision or Touching Assistance-helper provides verbal cues and/or touching/steadying and/or contact guard assistance as patient completes activity. Assistance may be provided throughout the activity or intermittently. 3-Partial/Moderate Assistance-helper does LESS THAN HALF the effort. [place] lifts, holds or supports trunk or limbs, but provides less than half the effort. 2-Substantial/Maximal Assistance-helper does MORE THAN HALF the effort. [place] lifts or holds trunk or limbs and provides more than half the effort. 8-Mlarppqlm-rldtza does ALL the effort. Patient does none of the effort to complete the activity. Or, the assistance of 2 or more helpers is required for the patient to complete the activity. If activity was not attempted, code reason: 7-Patient Refused. 9-Not Applicable-not attempted and the patient did not perform the activity before the current illness, exacerbation or injury. 10-Not Attempted due to Environmental Limitations-(lack of equipment, weather restraints, etc.). 88-Not Attempted due to Medical Conditions or Safety Concerns. Roll Left to Right (QC): 3 Sit to Lying (QC): 2 Sit to Stand (QC): 2 Chair/Hbb-my-Dmzgh Xfer(QC): 2 Car Transfer (QC): 1 Gait Training Does the Patient Walk?: No and Walking Goal NOT indicated Walk 10 feet (QC): 88 Walk 50 ft with 2 Turns(QC): 88 Walk 150 ft (QC): 88 Walking 10ft/uneven surface-QC: 88 Wheelchair Training Does the Pt Use a Wheelchair?: Yes Distance: 150'x2 Wheel 50 ft with 2 turns (QC): 2 Wheel 150 ft (QC): 2 Type of Wheelchair: Manual Stair Training 1 Step (curb) (QC): 88 4 Steps (QC): 88 12 Steps (QC): 88 Balance Picking up an Object (QC): 88 ADL-Treatment Eating (QC): 88 (See [employer] notes) Oral Hygiene (QC): 5 Bathing Location: L Arm, R Upper Leg, R Lower Leg (including foot), Chest, Abdomen, Perineal Area Shower/Bathe Self (QC): 1 Upper Body Dressing (QC): 2 Lower Body Dressing (QC): 1 On/Off Footwear (QC): 2 Toileting Hygiene (QC): 1 Toilet Transfer (QC): 88 (Using bedpan) Assessment/Plan Assessment and Plan Assess & Plan/Chief Complaint Assessment: CVA Left sided weakness Left sided neglect PEG tube status Dysphagia Aspiration hx with PNA CAD AF Coumadin treatment GIB 09/14/19 Plan: IRF protocol ST to work on dysphagia TF to be maintained Coumadin treatment Cardiology evaluation 09/13/19: Continue aggressive treatment Barium Swallow Monitor Hemoglobin 09/14/19: Give gentle IV fluids Increase INR with Coumadin with Lovenox bridge Barium swallow today 09/15/2019: Monitor GI bleed Hold Coumadin and Lovenox and aspirin Hold tube feedings Consult general surgery for endoscopies Maintain n.p.o. status due to aspiration risk 09/16/19: Monitor Hgb NPO Aspiration risk TF gently 09/17/19: No major changes Sleeping most of the time Stay off blood thinners due to second GI bleed 09/18/19: Insomnia treatment Continue aggressive physical therapy 09/19/19: Disposition will be discussed in team conference Tube feedings are tolerated well No more bloody stools Scrotum seems to be bleeding at times 09/19/19: Continue tube feedings of 1 can every 3 hours Sleeps most of the time No more bloody stools Aspirin was restarted Two GI bleeds in less than 2 weeks precludes restarting Coumadin 09/21/19: No more bloody stools Bowels are now light brown Coccyx has alevan to help heal 09/22/19: TF working well when using 1 can at a time No pain reported Continue therapy 09/23/19: Maintain TF for now 1 can at at time Fall risk IRF protocol 09/24/19: Monitor orthostasis Monitor hemoglobin Appreciate Dietary input 09/25/19: Replace ROLANDO hose to limit orthostasis Increasing PEG tube fluid Noted bowel and bladder dysfunction today 09/26/19: TF to continue Increase therapy Monitor for pain and falls 09/27/19: TF continues and doing well No pain reported Fall risk 09/28/19: Needs NHP Monitor Lovenox complications (1) CVA (cerebral vascular accident) (2) Atrial fibrillation with normal ventricular rate (3) CAD (coronary artery disease) (4) Stented coronary artery (5) Dysphagia (6) Left-sided weakness (7) At risk for aspiration (8) PEG (percutaneous endoscopic gastrostomy) status (9) On warfarin therapy (10) Left-sided neglect (11) Facial droop KENZIE MORENO DO Sep 28, 2019 10:31
--- NOTE | 2019-09-28 11:21 | Speech Therapy Daily Note ---
Speech Daily Progress Note Subjective Date Seen by Provider: Sep 28, 2019 Time Seen by Provider: 00:30 Patient was in his recliner resting following OT and PT session. Patient was very sleepy which required frequent verbal and/or tactile cues to engage. Objective Patient demo responses to questions related to his needs and events over the past 24 hours. Assessment Assessment Current Status: Fair Progress Treatment Plan Continue Plan of Care Speech Short Term Goals Short Term Goals Short Term Goals 1) Patient will complete expressive language exercises at 90% or greater with minimal cues. 2) Patient will complete OME x10 with 90% or greater with minimal cues. 3) Patient will complete oral trials with 90% or greater without s/s of aspiration. Speech Meter Tester Polyphase Goals Meter Tester Polyphase Goals Patient will improve speech production for effective communication of his wants/needs. Patient will maintain adequate nutrition/hydration via PEG and/or oral intake. Speech-Plan Patient/Family Goals Patient/Family Goals: Patient will discharge to a SNF near his home within the next week. Treatment Plan Speech Therapy Treatment Plan: Continue Plan of Care Treatment Duration: Sep 28, 2019 Frequency: 4 times per week (Patient will receive skilled ST 4-5x per week) Estimated Hrs Per Day: .5 hour per day Rehab Potential: Poor Barriers to Learning: Patient's deficits s/p CVA, decreased ability to participate. Pt/Family Agrees to Plan: Yes Safety Risks/Education Teaching Recipient: Patient Teaching Methods: Demonstration, Discussion Response to Teaching: Verbalize Understanding, Return Demonstration, Reinforcement Needed Education Topics Provided: Continued safety and utilization of his call light and/or roberts to have needs met Time Speech Therapy Time In: 09:30 Speech Therapy Time Out: 10:00 Total Billed Time: 30 Billed Treatment Time 1VON[address] ST Sep 28, 2019 11:21
--- NOTE | 2019-09-28 15:05 | Progress Note - Cardiology ---
Cardiology SOAP Progress Note Subjective: Does not report cp or palp or syncope or shortness of breath Does not report any specific symptoms Objective: I&O/Vital Signs 09/28/19 09/28/19 09/28/19 05:25 07:30 08:30 Temp 36.4 Pulse 94 Resp 20 B/P (MAP) 131/68 (89) Pulse Ox 95 92 O2 Delivery Room Air Room Air Room Air 09/28/19 00:00 Intake Total 1448 ml Balance 1448 ml Constitutional: well-developed, well-nourished, other Respiratory: chest expansion is symmetric, chest is bilaterally symmetric, lungs clear to auscultation Cardiovascular: regular rate-rhythm, S1 and S2, systolic murmur Gastrointestional: soft, audible bowel sounds, other Extremities: no lower extremity edema bilateral Neurologic/Psychiatric: other (L hemiplegia, rightward gaze, monosyllabic speech, orientation difficult to determine) Skin: No rash on exposed areas, No ulcerations on exposed areas A/P: Assessment: 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 Dias at [facility] Records from [facility] report h/o CVA x 3 (2008, 2013 x2) H/O PE in 2016 tx at [facility] Dysphagia - PEG tube in place HTN CAD - CABG x 4 vessel in February 2016 at [facility] by Dr. Regan - quadruple bypass with VILLATORO to LAD, saphenous vein graft to OM 1, saphenous vein T graft to D1, saphenous vein graft to LPDA. 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 Has been on warfarin H/O hematology w/u at [facility] which did not show hypercoagulable state H/O acute gangrenous cholecystitis for which he underwent cholecystectomy in July 2019 at [place], [place] Documented h/o prostate cancer Plan: We reviewed his hosp course, interviewed and examined him Continue current regimen Monitor labs KENNEDI SUÁREZ MD FACP FACC CCDS Sep 28, 2019 15:05
[2019-09-28 16:30] VITALS: BP 126/63
[2019-09-29 06:00] VITALS: BP 146/74
[2019-09-29] MEDS: LEVOTHYROXINE 75 MCG (LEVOTHROID) TABLET PO SCH (06:12)
[2019-09-29] MEDS: SUCRALFATE 1 GM (CARAFATE) TAB PO SCH ×4 (06:12→23:25)
[2019-09-29] MEDS: DOCUSATE SODIUM 100 MG (COLACE) CAP PO SCH ×2 (08:53→20:32)
[2019-09-29] MEDS: ENOXAPARIN 40 MG/0.4 ML (LOVENOX) SYR SC SCH (08:53)
[2019-09-29] MEDS: SENNA W/DOCUSATE (SENOKOT S) TABLET PO SCH ×2 (08:53→20:33)
[2019-09-29] MEDS: ASPIRIN 81 MG CHEW (CHILDREN'S ASA) PO SCH (08:54)
[2019-09-29] MEDS: polyethylene glycoL POWDER 17 GM (MIRALAX) PACK PO SCH ×2 (08:54→20:34)
[2019-09-29] MEDS: LACTOBACILLUS ACIDOPHILUS (PROBIOTIC) CAPSULE PEG SCH ×2 (08:54→20:32)
[2019-09-29] MEDS: PANTOPRAZOLE 2 MG/ML LIQUID 200 ML (PROTONIX) PEG SCH ×6 (08:56→20:34)
--- NOTE | 2019-09-29 11:53 | PM&R Progress Note ---
Subjective HPI/CC On Admission Date Seen by Provider: Sep 29, 2019 Time Seen by Provider: 12:00 Subjective/Events-last exam 09/29/19: Daughter at the bedside Patient has difficulty communicating No pain reported Needs NHP 09/28/19: Needs to go to [place] No pain reported Slight smear of blood with BM so may not even be able to tolerate Lovenox DVT PPx dose 09/27/19: Went from bed to chair without a Sarah-lift today More alert today Had a BM three days ago so will start laxatives No nausea or vomiting Tolerating tube feedings Lovenox 40 Mg started for DVT prophylaxis He just can't seem to tolerate the therapeutic dose for AFIB because of GI bleeds 09/26/19: Insomnia much improved he slept very well last night Bowels are moving Tube feedings are tolerated since it is only one can at a time No falls Appears to be more motivated today 09/25/19: BP remains a little bit low, will replace ROLANDO hose Bowel and bladder incontinence noted today Peg tub will be utilized for increased fluid intake 09/24/19: Holding Lopressor due to orthostasis during PT today BP 125/70 after orthostasis episode resolved No nausea or vomiting Regular rhythm on exam 09/23/19: Tolerating TF well Lethargic is chronic No pain reported 09/22/19: BM yesterday Tolerating TF well No pain reported 09/21/19: Pt more talkative today No more bloody stools Two bowel movements last night were brown Decubitus ulcer on coccyx being monitored and managed 09/20/19: Pt sleeping most of the time Participating in therapy Tube feedings of one can every three hours is working a lot better for him, he is tolerating it better No more bloody stools Cardiology restarted Aspirin but Coumadin will continue to be held because he has had two GI bleeds in the past two weeks and cant withstand a colonoscopy prep Very complex case 09/19/19: Pt sleeps most of the time Will discuss disposition, I doubt any recovery potential Overall needs probably a snf for long-term care 09/18/19: Insomnia is an issue Worked with PT today but seems to take a lot of naps during the day which disrupts the nighttime sleeping No pain is reported 09/17/19: Pt sleeps most of the time No major changes No bloody stools Off of Lovenox, Coumadin and Aspirin Second GI bleed in the last few weeks 09/16/19: No bloody stools today Hgb stable 10.3 Is not strong enough to undergo C-scope prep Dr Flores saw him this morning Holding ASA Lovenox Coumadin Had GI at [place] also Decreased cognition 09/15/19: Patient had been doing pretty well when I rounded No more nausea and vomiting like yesterday Tube feeding was restarted slowly I stopped the Clinimix since tube feedings were started N.p.o. 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 Flores general surgery was consulted and checked hemoglobin and hematocrit. 09/14/19: Had nausea and vomiting all last night Needs IV fluids gently so we'll start that today Urinary incontinence noted No fecal incontinence Holding tube feedings for right now Barium swallow today at 11:30 INR 1.4 will increase dose and provide Lovenox 09/13/19: Patient doing pretty well today Sleeping currently Therapy worked with him today Modified Barium Swallow scheduled Hemoglobin 9.6 Disoriented at times Bowels moved yesterday Conferred with RN Reviewed Therapy notes Checked Meds and Labs Review of Systems General: Fatigue, Malaise Neurological: Weakness, Incoordination Objective Exam Vital Signs Vital Signs Date Time Temp Pulse Resp B/P (MAP) Pulse Ox O2 Delivery O2 Flow Rate FiO2 09/29/19 07:55 Room Air 09/29/19 06:00 36.4 93 18 146/74 (98) 93 Capillary Refill : Less Than 3 SecondsLess Than 3 Seconds General Appearance: No Apparent Distress, WD/WN, Chronically ill HEENT: PERRL/EOMI, Normal ENT Inspection, Pharynx Normal Neck: Full Range of Motion, Normal Inspection, Non Tender, Supple, Carotid Bruit Respiratory: Chest Non Tender, Lungs Clear, Normal Breath Sounds, No Accessory Muscle Use, No Respiratory Distress Cardiovascular: No Edema, No Gallop, No JVD, No Murmur, Normal Peripheral Pulses, Irregularly Irregular Gastrointestinal: Normal Bowel Sounds, No Organomegaly, No Pulsatile Mass, Non Tender, Soft Back: Normal Inspection, No CVA Tenderness, No Vertebral Tenderness Extremity: Normal Capillary Refill, Normal Inspection, Normal Range of Motion, Non Tender, No Calf Tenderness, Pedal Edema Neurologic/Psychiatric: Alert, Oriented x3, Normal Mood/Affect, box liner II-XII Norm as Tested, Aphasia, Facial Droop (left), Motor Weakness (left sided) Skin: Normal Color, Warm/Dry Lymphatic: No Adenopathy Results/Procedures Lab Patient resulted labs reviewed. FIM Transfers Therapy Code Descriptions/Definitions Functional Williamson Measure: 0=Not Assessed/NA 4=Minimal Assistance 1=Total Assistance 5=Supervision or Setup 2=Maximal Assistance 6=Modified Williamson 3=Moderate Assistance 7=Complete IndependenceSCALE: Activities may be completed with or without assistive devices. 7-Zhqphsucwu-fmoaekl completes the activity by him/herself with no assistance from a helper. 5-Set-up or Clean-up Assistance-helper sets up or cleans up; patient completes activity. [place] assists only prior to or following the activity. 4-Supervision or Touching Assistance-helper provides verbal cues and/or touching/steadying and/or contact guard assistance as patient completes activity. Assistance may be provided throughout the activity or intermittently. 3-Partial/Moderate Assistance-helper does LESS THAN HALF the effort. [place] lifts, holds or supports trunk or limbs, but provides less than half the effort. 2-Substantial/Maximal Assistance-helper does MORE THAN HALF the effort. [place] lifts or holds trunk or limbs and provides more than half the effort. 7-Gevrbcwrl-rlteyh does ALL the effort. Patient does none of the effort to complete the activity. Or, the assistance of 2 or more helpers is required for the patient to complete the activity. If activity was not attempted, code reason: 7-Patient Refused. 9-Not Applicable-not attempted and the patient did not perform the activity before the current illness, exacerbation or injury. 10-Not Attempted due to Environmental Limitations-(lack of equipment, weather restraints, etc.). 88-Not Attempted due to Medical Conditions or Safety Concerns. Roll Left to Right (QC): 3 Sit to Lying (QC): 2 Sit to Stand (QC): 2 Chair/Ytc-hi-Qnbkl Xfer(QC): 2 Car Transfer (QC): 1 Gait Training Does the Patient Walk?: No and Walking Goal NOT indicated Walk 10 feet (QC): 88 Walk 50 ft with 2 Turns(QC): 88 Walk 150 ft (QC): 88 Walking 10ft/uneven surface-QC: 88 Wheelchair Training Does the Pt Use a Wheelchair?: Yes Distance: 150'x2 Wheel 50 ft with 2 turns (QC): 2 Wheel 150 ft (QC): 2 Type of Wheelchair: Manual Stair Training 1 Step (curb) (QC): 88 4 Steps (QC): 88 12 Steps (QC): 88 Balance Picking up an Object (QC): 88 ADL-Treatment Eating (QC): 88 (See [employer]ARM[employer] notes) Oral Hygiene (QC): 5 Bathing Location: L Arm, R Upper Leg, R Lower Leg (including foot), Chest, Abdomen, Perineal Area Shower/Bathe Self (QC): 1 Upper Body Dressing (QC): 2 Lower Body Dressing (QC): 1 On/Off Footwear (QC): 2 Toileting Hygiene (QC): 1 Toilet Transfer (QC): 88 (Using bedpan) Assessment/Plan Assessment and Plan Assess & Plan/Chief Complaint Assessment: CVA Left sided weakness Left sided neglect PEG tube status Dysphagia Aspiration hx with PNA CAD AF Coumadin treatment GIB 09/14/19 Plan: IRF protocol ST to work on dysphagia TF to be maintained Coumadin treatment Cardiology evaluation 09/13/19: Continue aggressive treatment Barium Swallow Monitor Hemoglobin 09/14/19: Give gentle IV fluids Increase INR with Coumadin with Lovenox bridge Barium swallow today 09/15/2019: Monitor GI bleed Hold Coumadin and Lovenox and aspirin Hold tube feedings Consult general surgery for endoscopies Maintain n.p.o. status due to aspiration risk 09/16/19: Monitor Hgb NPO Aspiration risk TF gently 09/17/19: No major changes Sleeping most of the time Stay off blood thinners due to second GI bleed 09/18/19: Insomnia treatment Continue aggressive physical therapy 09/19/19: Disposition will be discussed in team conference Tube feedings are tolerated well No more bloody stools Scrotum seems to be bleeding at times 09/19/19: Continue tube feedings of 1 can every 3 hours Sleeps most of the time No more bloody stools Aspirin was restarted Two GI bleeds in less than 2 weeks precludes restarting Coumadin 09/21/19: No more bloody stools Bowels are now light brown Coccyx has alevan to help heal 09/22/19: TF working well when using 1 can at a time No pain reported Continue therapy 09/23/19: Maintain TF for now 1 can at at time Fall risk IRF protocol 09/24/19: Monitor orthostasis Monitor hemoglobin Appreciate Dietary input 09/25/19: Replace ROLANDO hose to limit orthostasis Increasing PEG tube fluid Noted bowel and bladder dysfunction today 09/26/19: TF to continue Increase therapy Monitor for pain and falls 09/27/19: TF continues and doing well No pain reported Fall risk 09/28/19: Needs NHP Monitor Lovenox complications 09/29/19: No bloody stools TF tolerated Needs NH (1) CVA (cerebral vascular accident) (2) Atrial fibrillation with normal ventricular rate (3) CAD (coronary artery disease) (4) Stented coronary artery (5) Dysphagia (6) Left-sided weakness (7) At risk for aspiration (8) PEG (percutaneous endoscopic gastrostomy) status (9) On warfarin therapy (10) Left-sided neglect (11) Facial droop KENZIE MORENO DO Sep 29, 2019 11:53
--- NOTE | 2019-09-29 12:44 | Physical Therapy Daily Note ---
PT Daily Note-Current Subjective Pt in bed, daughter present. Pt denied pain, agrees to treatment. Mental Status Patient Orientation: Person, Place, Situation Transfers SCALE: Activities may be completed with or without assistive devices. 9-Fllvbnkykt-xloccfu completes the activity by him/herself with no assistance from a helper. 5-Set-up or Clean-up Assistance-helper sets up or cleans up; patient completes activity. [place] assists only prior to or following the activity. 4-Supervision or Touching Assistance-helper provides verbal cues and/or touching/steadying and/or contact guard assistance as patient completes activity. Assistance may be provided throughout the activity or intermittently. 3-Partial/Moderate Assistance-helper does LESS THAN HALF the effort. [place] lift s, holds or supports trunk or limbs, but provides less than half the effort. 2-Substantial/Maximal Assistance-helper does MORE THAN HALF the effort. [place] lifts or holds trunk or limbs and provides more than half the effort. 9-Ozqsinxxx-jcnuyv does ALL the effort. Patient does none of the effort to complete the activity. Or, the assistance of 2 or more helpers is required for the patient to complete the activity. If activity was not attempted, code reason: 7-Patient Refused. 9-Not Applicable-not attempted and the patient did not perform the activity before the current illness, exacerbation or injury. 10-Not Attempted due to Environmental Limitations-(lack of equipment, weather restraints, etc.). 88-Not Attempted due to Medical Conditions or Safety Concerns. Treatments (L) LE and UE PROM, (R) LE AROM all planes, all joints. Donned pt pants by rolling with min-mod A as needed. Sarah lift to w/c with 2 person assist. Pt propped and positioned with wedges and pillows for (L) side support to maintain good alighnment, (L) UE in sling. Pt in w/c for daughter to push around. Assessment Current Status: Fair Progress Pt able to participate in rolling side to side with min-mod A. Pt is dependent for all mobility at this time. Pt did participate and respond nicely to all instructions. (L) side neglect present but able to fully rotate head and eyes to the far (L) when instructed and given targets. Pt daughter educated on sarah transfer. Pt daughter apprehensive and "uncomfortable" per her words. Pt daugher also instructed in helping pt practice (L) side awareness. PT Short Term Goals Short Term Goals Time Frame: Sep 19, 2019 Roll Left & Right: 2 Sit to lyin Lying to sitting on side of be: 2 Sit to stand: 2 Chair/lbl-ii-ufwkm transfer: 2 Wheel 50ft w/2 turns: 2 Wheel 150 feet: 2 PT Material Damage Adjuster Goals Material Damage Adjuster Goals PT Longterm Goals Time Frame: Oct 03, 2019 Roll Left & Right (QC): 3 Sit to Lying (QC): 3 Lying-Sitting on Side/Bed(QC): 3 Sit to Stand (QC): 3 Chair/Fac-tz-Lroek Xfer(QC): 3 Toilet Transfer (QC): 3 Car Transfer (QC): 3 Does the Patient Walk: No and Walking Goal NOT indicated Walk 10 feet (QC): 88 Walk 50ft with 2 Turns (QC): 88 Walk 150 ft (QC): 88 Walking 10ft on Uneven Surface: 88 1 Step (curb) (QC): 88 4 Steps (QC): 88 12 Steps (QC): 88 Picking up an Object (QC): 88 Wheel 50 feet with 2 turns (QC: 3 Wheel 150 feet: 3 PT Plan Treatment/Plan Treatment Plan: Continue Plan of Care Treatment Plan: Bed Mobility, Education, Functional Activity Aliyah, Functional Strength, Group Therapy, Gait, Safety, Therapeutic Exercise, Transfers Treatment Duration: Oct 03, 2019 Frequency: At least 5 of 7 days/Wk (IRF) Estimated Hrs Per Day: 1.5 hours per day Patient and/or Family Agrees t: Yes Time/GCodes Time In: 1000 Time Out: 1050 Total Billed Treatment Time: 50 Total Billed Treatment 1, ther ex 15', FA 35' TARIQ CARBONE CPTCollin Sep 29, 2019 12:44
[2019-09-29 18:00] VITALS: BP 118/69
[2019-09-29] MEDS: MELATONIN 3 MG TABLET PO PRN (20:33)
[2019-09-30 06:00] VITALS: BP 132/60
[2019-09-30] MEDS: SUCRALFATE 1 GM (CARAFATE) TAB PO SCH ×3 (06:00→18:21)
[2019-09-30] MEDS: LEVOTHYROXINE 75 MCG (LEVOTHROID) TABLET PO SCH (06:00)
[2019-09-30] MEDS: ASPIRIN 81 MG CHEW (CHILDREN'S ASA) PO SCH (09:05)
[2019-09-30] MEDS: LACTOBACILLUS ACIDOPHILUS (PROBIOTIC) CAPSULE PEG SCH ×2 (09:05→20:34)
[2019-09-30] MEDS: ENOXAPARIN 40 MG/0.4 ML (LOVENOX) SYR SC SCH (09:06)
[2019-09-30] MEDS: SCOPOLAMINE 1.5 MG (TRANSDERM-SCOP) PATCH TD SCH (09:06)
[2019-09-30] MEDS: PANTOPRAZOLE 2 MG/ML LIQUID 200 ML (PROTONIX) PEG SCH ×6 (09:06→20:34)
[2019-09-30] MEDS: SCOPOLAMINE PATCH REMOVAL TP SCH (09:06)
[2019-09-30] MEDS: DOCUSATE SODIUM 100 MG (COLACE) CAP PO SCH ×2 (09:17→20:34)
[2019-09-30] MEDS: polyethylene glycoL POWDER 17 GM (MIRALAX) PACK PO SCH ×2 (09:17→20:34)
[2019-09-30] MEDS: SENNA W/DOCUSATE (SENOKOT S) TABLET PO SCH ×2 (09:17→20:34)
--- NOTE | 2019-09-30 10:47 | PM&R Progress Note ---
Subjective HPI/CC On Admission Date Seen by Provider: Sep 30, 2019 Time Seen by Provider: 10:45 Subjective/Events-last exam 09/30/19: Patient feels ok TF tolerated Checked meds and labs No pain reported 09/29/19: Daughter at the bedside Patient has difficulty communicating No pain reported Needs NHP 09/28/19: Needs to go to [place] No pain reported Slight smear of blood with BM so may not even be able to tolerate Lovenox DVT PPx dose 09/27/19: Went from bed to chair without a Sarah-lift today More alert today Had a BM three days ago so will start laxatives No nausea or vomiting Tolerating tube feedings Lovenox 40 Mg started for DVT prophylaxis He just can't seem to tolerate the therapeutic dose for AFIB because of GI bleeds 09/26/19: Insomnia much improved he slept very well last night Bowels are moving Tube feedings are tolerated since it is only one can at a time No falls Appears to be more motivated today 09/25/19: BP remains a little bit low, will replace ROLANDO hose Bowel and bladder incontinence noted today Peg tub will be utilized for increased fluid intake 09/24/19: Holding Lopressor due to orthostasis during PT today BP 125/70 after orthostasis episode resolved No nausea or vomiting Regular rhythm on exam 09/23/19: Tolerating TF well Lethargic is chronic No pain reported 09/22/19: BM yesterday Tolerating TF well No pain reported 09/21/19: Pt more talkative today No more bloody stools Two bowel movements last night were brown Decubitus ulcer on coccyx being monitored and managed 09/20/19: Pt sleeping most of the time Participating in therapy Tube feedings of one can every three hours is working a lot better for him, he is tolerating it better No more bloody stools Cardiology restarted Aspirin but Coumadin will continue to be held because he has had two GI bleeds in the past two weeks and cant withstand a colonoscopy prep Very complex case 09/19/19: Pt sleeps most of the time Will discuss disposition, I doubt any recovery potential Overall needs probably a [facility] for long-term care 09/18/19: Insomnia is an issue Worked with PT today but seems to take a lot of naps during the day which disrupts the nighttime sleeping No pain is reported 09/17/19: Pt sleeps most of the time No major changes No bloody stools Off of Lovenox, Coumadin and Aspirin Second GI bleed in the last few weeks 09/16/19: No bloody stools today Hgb stable 10.3 Is not strong enough to undergo C-scope prep Dr Flores saw him this morning Holding ASA Lovenox Coumadin Had GI at [place] also Decreased cognition 09/15/19: Patient had been doing pretty well when I rounded No more nausea and vomiting like yesterday Tube feeding was restarted slowly I stopped the Clinimix since tube feedings were started N.p.o. 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 Flores general surgery was consulted and checked hemoglobin and hematocrit. 09/14/19: Had nausea and vomiting all last night Needs IV fluids gently so we'll start that today Urinary incontinence noted No fecal incontinence Holding tube feedings for right now Barium swallow today at 11:30 INR 1.4 will increase dose and provide Lovenox 09/13/19: Patient doing pretty well today Sleeping currently Therapy worked with him today Modified Barium Swallow scheduled Hemoglobin 9.6 Disoriented at times Bowels moved yesterday Conferred with RN Reviewed Therapy notes Checked Meds and Labs Review of Systems General: Fatigue, Malaise Objective Exam Vital Signs Vital Signs Date Time Temp Pulse Resp B/P (MAP) Pulse Ox O2 Delivery O2 Flow Rate FiO2 09/30/19 08:48 Room Air 09/30/19 06:00 36.3 88 18 132/60 (84) 96 Capillary Refill : Less Than 3 SecondsLess Than 3 Seconds General Appearance: No Apparent Distress, WD/WN, Chronically ill HEENT: PERRL/EOMI, Normal ENT Inspection, Pharynx Normal Neck: Full Range of Motion, Normal Inspection, Non Tender, Supple, Carotid Bruit Respiratory: Chest Non Tender, Lungs Clear, Normal Breath Sounds, No Accessory Muscle Use, No Respiratory Distress Cardiovascular: No Edema, No Gallop, No JVD, No Murmur, Normal Peripheral Pulses, Irregularly Irregular Gastrointestinal: Normal Bowel Sounds, No Organomegaly, No Pulsatile Mass, Non Tender, Soft Back: Normal Inspection, No CVA Tenderness, No Vertebral Tenderness Extremity: Normal Capillary Refill, Normal Inspection, Normal Range of Motion, Non Tender, No Calf Tenderness, Pedal Edema Neurologic/Psychiatric: Alert, Oriented x3, Normal Mood/Affect, refractory mixer II-XII Norm as Tested, Aphasia, Facial Droop (left), Motor Weakness (left sided) Skin: Normal Color, Warm/Dry Lymphatic: No Adenopathy Results/Procedures Lab Patient resulted labs reviewed. FIM Transfers Therapy Code Descriptions/Definitions Functional [place] Measure: 0=Not Assessed/NA 4=Minimal Assistance 1=Total Assistance 5=Supervision or Setup 2=Maximal Assistance 6=Modified [place] 3=Moderate Assistance 7=Complete IndependenceSCALE: Activities may be completed with or without assistive devices. 7-Gmebwjtwpe-rlwnawp completes the activity by him/herself with no assistance from a helper. 5-Set-up or Clean-up Assistance-helper sets up or cleans up; patient completes activity. [place] assists only prior to or following the activity. 4-Supervision or Touching Assistance-helper provides verbal cues and/or touching/steadying and/or contact guard assistance as patient completes activity. Assistance may be provided throughout the activity or intermittently. 3-Partial/Moderate Assistance-helper does LESS THAN HALF the effort. [place] lifts, holds or supports trunk or limbs, but provides less than half the effort. 2-Substantial/Maximal Assistance-helper does MORE THAN HALF the effort. [place] lifts or holds trunk or limbs and provides more than half the effort. 7-Gvayabzbm-pulanv does ALL the effort. Patient does none of the effort to complete the activity. Or, the assistance of 2 or more helpers is required for the patient to complete the activity. If activity was not attempted, code reason: 7-Patient Refused. 9-Not Applicable-not attempted and the patient did not perform the activity before the current illness, exacerbation or injury. 10-Not Attempted due to Environmental Limitations-(lack of equipment, weather restraints, etc.). 88-Not Attempted due to Medical Conditions or Safety Concerns. Roll Left to Right (QC): 3 Sit to Lying (QC): 2 Sit to Stand (QC): 2 Chair/Obq-mt-Wajgg Xfer(QC): 2 Car Transfer (QC): 1 Gait Training Does the Patient Walk?: No and Walking Goal NOT indicated Walk 10 feet (QC): 88 Walk 50 ft with 2 Turns(QC): 88 Walk 150 ft (QC): 88 Walking 10ft/uneven surface-QC: 88 Wheelchair Training Does the Pt Use a Wheelchair?: Yes Distance: 150'x2 Wheel 50 ft with 2 turns (QC): 2 Wheel 150 ft (QC): 2 Type of Wheelchair: Manual Stair Training 1 Step (curb) (QC): 88 4 Steps (QC): 88 12 Steps (QC): 88 Balance Picking up an Object (QC): 88 ADL-Treatment Eating (QC): 88 (See MUTUEL MACHINE OPERATOR notes) Oral Hygiene (QC): 5 Bathing Location: L Arm, R Upper Leg, R Lower Leg (including foot), Chest, Abdomen, Perineal Area Shower/Bathe Self (QC): 1 Upper Body Dressing (QC): 2 Lower Body Dressing (QC): 1 On/Off Footwear (QC): 2 Toileting Hygiene (QC): 1 Toilet Transfer (QC): 88 (Using bedpan) Assessment/Plan Assessment and Plan Assess & Plan/Chief Complaint Assessment: CVA Left sided weakness Left sided neglect PEG tube status Dysphagia Aspiration hx with PNA CAD AF Coumadin treatment GIB 09/14/19 Plan: IRF protocol ST to work on dysphagia TF to be maintained Coumadin treatment Cardiology evaluation 09/13/19: Continue aggressive treatment Barium Swallow Monitor Hemoglobin 09/14/19: Give gentle IV fluids Increase INR with Coumadin with Lovenox bridge Barium swallow today 09/15/2019: Monitor GI bleed Hold Coumadin and Lovenox and aspirin Hold tube feedings Consult general surgery for endoscopies Maintain n.p.o. status due to aspiration risk 09/16/19: Monitor Hgb NPO Aspiration risk TF gently 09/17/19: No major changes Sleeping most of the time Stay off blood thinners due to second GI bleed 09/18/19: Insomnia treatment Continue aggressive physical therapy 09/19/19: Disposition will be discussed in team conference Tube feedings are tolerated well No more bloody stools Scrotum seems to be bleeding at times 09/19/19: Continue tube feedings of 1 can every 3 hours Sleeps most of the time No more bloody stools Aspirin was restarted Two GI bleeds in less than 2 weeks precludes restarting Coumadin 09/21/19: No more bloody stools Bowels are now light brown Coccyx has alevan to help heal 09/22/19: TF working well when using 1 can at a time No pain reported Continue therapy 09/23/19: Maintain TF for now 1 can at at time Fall risk IRF protocol 09/24/19: Monitor orthostasis Monitor hemoglobin Appreciate Dietary input 09/25/19: Replace ROLANDO hose to limit orthostasis Increasing PEG tube fluid Noted bowel and bladder dysfunction today 09/26/19: TF to continue Increase therapy Monitor for pain and falls 09/27/19: TF continues and doing well No pain reported Fall risk 09/28/19: Needs NHP Monitor Lovenox complications 09/29/19: No bloody stools TF tolerated Needs NH 09/30/19: SNF admit TF maintained (1) CVA (cerebral vascular accident) (2) Atrial fibrillation with normal ventricular rate (3) CAD (coronary artery disease) (4) Stented coronary artery (5) Dysphagia (6) Left-sided weakness (7) At risk for aspiration (8) PEG (percutaneous endoscopic gastrostomy) status (9) On warfarin therapy (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
[2019-09-30 17:40] VITALS: BP 142/82
[2019-09-30] MEDS: ACETAMINOPHEN 325 MG TABLET PO PRN (22:44)
[2019-09-30] MEDS: ALPRAZolam 0.25 MG (XANAX) TAB PO PRN (22:45)
[2019-10-01] MEDS: SUCRALFATE 1 GM (CARAFATE) TAB PO SCH ×4 (00:07→17:49)
--- NOTE | 2019-10-01 05:34 | PM&R Progress Note ---
Subjective HPI/CC On Admission Date Seen by Provider: Oct 01, 2019 Time Seen by Provider: 08:00 Subjective/Events-last exam 10/01/19: Pt was coughing a bit but lungs are clear and he wasn't coughing with me Labs good, Hgb 11.7 No rectal bleeding Maintain on Lovenox for DVT prophylaxis 09/30/19: Patient feels ok TF tolerated Checked meds and labs No pain reported 09/29/19: Daughter at the bedside Patient has difficulty communicating No pain reported Needs NHP 09/28/19: Needs to go to [place] No pain reported Slight smear of blood with BM so may not even be able to tolerate Lovenox DVT PPx dose 09/27/19: Went from bed to chair without a Sarah-lift today More alert today Had a BM three days ago so will start laxatives No nausea or vomiting Tolerating tube feedings Lovenox 40 Mg started for DVT prophylaxis He just can't seem to tolerate the therapeutic dose for AFIB because of GI bleeds 09/26/19: Insomnia much improved he slept very well last night Bowels are moving Tube feedings are tolerated since it is only one can at a time No falls Appears to be more motivated today 09/25/19: BP remains a little bit low, will replace ROLANDO hose Bowel and bladder incontinence noted today Peg tub will be utilized for increased fluid intake 09/24/19: Holding Lopressor due to orthostasis during PT today BP 125/70 after orthostasis episode resolved No nausea or vomiting Regular rhythm on exam 09/23/19: Tolerating TF well Lethargic is chronic No pain reported 09/22/19: BM yesterday Tolerating TF well No pain reported 09/21/19: Pt more talkative today No more bloody stools Two bowel movements last night were brown Decubitus ulcer on coccyx being monitored and managed 09/20/19: Pt sleeping most of the time Participating in therapy Tube feedings of one can every three hours is working a lot better for him, he is tolerating it better No more bloody stools Cardiology restarted Aspirin but Coumadin will continue to be held because he has had two GI bleeds in the past two weeks and cant withstand a colonoscopy prep Very complex case 09/19/19: Pt sleeps most of the time Will discuss disposition, I doubt any recovery potential Overall needs probably a snf for long-term care 09/18/19: Insomnia is an issue Worked with PT today but seems to take a lot of naps during the day which disrupts the nighttime sleeping No pain is reported 09/17/19: Pt sleeps most of the time No major changes No bloody stools Off of Lovenox, Coumadin and Aspirin Second GI bleed in the last few weeks 09/16/19: No bloody stools today Hgb stable 10.3 Is not strong enough to undergo C-scope prep Dr Flores saw him this morning Holding ASA Lovenox Coumadin Had GI at [place] also Decreased cognition 09/15/19: Patient had been doing pretty well when I rounded No more nausea and vomiting like yesterday Tube feeding was restarted slowly I stopped the Clinimix since tube feedings were started N.p.o. 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 Flores general surgery was consulted and checked hemoglobin and hematocrit. 09/14/19: Had nausea and vomiting all last night Needs IV fluids gently so we'll start that today Urinary incontinence noted No fecal incontinence Holding tube feedings for right now Barium swallow today at 11:30 INR 1.4 will increase dose and provide Lovenox 09/13/19: Patient doing pretty well today Sleeping currently Therapy worked with him today Modified Barium Swallow scheduled Hemoglobin 9.6 Disoriented at times Bowels moved yesterday Conferred with RN Reviewed Therapy notes Checked Meds and Labs Review of Systems General: Fatigue, Malaise Neurological: Weakness Objective Exam Vital Signs Vital Signs Date Time Temp Pulse Resp B/P (MAP) Pulse Ox O2 Delivery O2 Flow Rate FiO2 10/01/19 18:31 98 Room Air 10/01/19 16:53 36.2 90 16 130/57 (81) Capillary Refill : Less Than 3 SecondsLess Than 3 Seconds General Appearance: No Apparent Distress, WD/WN, Chronically ill HEENT: PERRL/EOMI, Normal ENT Inspection, Pharynx Normal Neck: Full Range of Motion, Normal Inspection, Non Tender, Supple, Carotid Bruit Respiratory: Chest Non Tender, Lungs Clear, Normal Breath Sounds, No Accessory Muscle Use, No Respiratory Distress Cardiovascular: No Edema, No Gallop, No JVD, No Murmur, Normal Peripheral Pulses, Irregularly Irregular Gastrointestinal: Normal Bowel Sounds, No Organomegaly, No Pulsatile Mass, Non Tender, Soft Back: Normal Inspection, No CVA Tenderness, No Vertebral Tenderness Extremity: Normal Capillary Refill, Normal Inspection, Normal Range of Motion, Non Tender, No Calf Tenderness, Pedal Edema Neurologic/Psychiatric: Alert, Oriented x3, Normal Mood/Affect, lead person II-XII Norm as Tested, Aphasia, Facial Droop (left), Motor Weakness (left sided) Skin: Normal Color, Warm/Dry Lymphatic: No Adenopathy Results/Procedures Lab Laboratory Tests 10/01/19 05:22 Patient resulted labs reviewed. FIM Transfers Therapy Code Descriptions/Definitions Functional [place] Measure: 0=Not Assessed/NA 4=Minimal Assistance 1=Total Assistance 5=Supervision or Setup 2=Maximal Assistance 6=Modified [place] 3=Moderate Assistance 7=Complete IndependenceSCALE: Activities may be completed with or without assistive devices. 9-Aaloadzqeu-hebvtfe completes the activity by him/herself with no assistance from a helper. 5-Set-up or Clean-up Assistance-helper sets up or cleans up; patient completes activity. [place] assists only prior to or following the activity. 4-Supervision or Touching Assistance-helper provides verbal cues and/or touching/steadying and/or contact guard assistance as patient completes activity. Assistance may be provided throughout the activity or intermittently. 3-Partial/Moderate Assistance-helper does LESS THAN HALF the effort. [place] lifts, holds or supports trunk or limbs, but provides less than half the effort. 2-Substantial/Maximal Assistance-helper does MORE THAN HALF the effort. [place] lifts or holds trunk or limbs and provides more than half the effort. 9-Ylpuccoal-vzkywh does ALL the effort. Patient does none of the effort to complete the activity. Or, the assistance of 2 or more helpers is required for the patient to complete the activity. If activity was not attempted, code reason: 7-Patient Refused. 9-Not Applicable-not attempted and the patient did not perform the activity before the current illness, exacerbation or injury. 10-Not Attempted due to Environmental Limitations-(lack of equipment, weather restraints, etc.). 88-Not Attempted due to Medical Conditions or Safety Concerns. Roll Left to Right (QC): 3 Sit to Lying (QC): 2 Sit to Stand (QC): 2 Chair/Osf-xn-Enobx Xfer(QC): 2 Car Transfer (QC): 1 Gait Training Does the Patient Walk?: No and Walking Goal NOT indicated Walk 10 feet (QC): 88 Walk 50 ft with 2 Turns(QC): 88 Walk 150 ft (QC): 88 Walking 10ft/uneven surface-QC: 88 Wheelchair Training Does the Pt Use a Wheelchair?: Yes Distance: 150'x2 Wheel 50 ft with 2 turns (QC): 2 Wheel 150 ft (QC): 2 Type of Wheelchair: Manual Stair Training 1 Step (curb) (QC): 88 4 Steps (QC): 88 12 Steps (QC): 88 Balance Picking up an Object (QC): 88 ADL-Treatment Eating (QC): 88 (See SIZE PAINTER notes) Oral Hygiene (QC): 5 Bathing Location: L Arm, R Upper Leg, R Lower Leg (including foot), Chest, Abdomen, Perineal Area Shower/Bathe Self (QC): 1 Upper Body Dressing (QC): 2 Lower Body Dressing (QC): 1 On/Off Footwear (QC): 2 Toileting Hygiene (QC): 1 Toilet Transfer (QC): 88 (Using bedpan) Assessment/Plan Assessment and Plan Assess & Plan/Chief Complaint Assessment: CVA Left sided weakness Left sided neglect PEG tube status Dysphagia Aspiration hx with PNA CAD AF Coumadin treatment GIB 09/14/19 Plan: IRF protocol ST to work on dysphagia TF to be maintained Coumadin treatment Cardiology evaluation 09/13/19: Continue aggressive treatment Barium Swallow Monitor Hemoglobin 09/14/19: Give gentle IV fluids Increase INR with Coumadin with Lovenox bridge Barium swallow today 09/15/2019: Monitor GI bleed Hold Coumadin and Lovenox and aspirin Hold tube feedings Consult general surgery for endoscopies Maintain n.p.o. status due to aspiration risk 09/16/19: Monitor Hgb NPO Aspiration risk TF gently 09/17/19: No major changes Sleeping most of the time Stay off blood thinners due to second GI bleed 09/18/19: Insomnia treatment Continue aggressive physical therapy 09/19/19: Disposition will be discussed in team conference Tube feedings are tolerated well No more bloody stools Scrotum seems to be bleeding at times 09/19/19: Continue tube feedings of 1 can every 3 hours Sleeps most of the time No more bloody stools Aspirin was restarted Two GI bleeds in less than 2 weeks precludes restarting Coumadin 09/21/19: No more bloody stools Bowels are now light brown Coccyx has alevan to help heal 09/22/19: TF working well when using 1 can at a time No pain reported Continue therapy 09/23/19: Maintain TF for now 1 can at at time Fall risk IRF protocol 09/24/19: Monitor orthostasis Monitor hemoglobin Appreciate Dietary input 09/25/19: Replace ROLANDO hose to limit orthostasis Increasing PEG tube fluid Noted bowel and bladder dysfunction today 09/26/19: TF to continue Increase therapy Monitor for pain and falls 09/27/19: TF continues and doing well No pain reported Fall risk 09/28/19: Needs NHP Monitor Lovenox complications 09/29/19: No bloody stools TF tolerated Needs NH 09/30/19: SNF admit TF maintained 10/01/19: Monitor coughing Labs stable Continue tube feedings long-term facility at discharge (1) CVA (cerebral vascular accident) (2) Atrial fibrillation with normal ventricular rate (3) CAD (coronary artery disease) (4) Stented coronary artery (5) Dysphagia (6) Left-sided weakness (7) At risk for aspiration (8) PEG (percutaneous endoscopic gastrostomy) status (9) On warfarin therapy (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
[2019-10-01 05:40] LABS: BASOPHILS # (AUTO) 0.1 10^3/uL (0.0-0.1); BASOPHILS % (AUTO) 1 % (0-10); EOSINOPHILS # (AUTO) 0.2 10^3/uL (0.0-0.3); EOSINOPHILS % (AUTO) 3 % (0-10); HEMATOCRIT 38 % (40-54); HEMOGLOBIN 11.7 G/DL (13.3-17.7); LYMPHOCYTES # (AUTO) 1.4 X 10^3 (1.0-4.0); LYMPHOCYTES % (AUTO) 20 % (12-44); MEAN CORPUSCULAR HEMOGLOBIN 26 PG (25-34); MEAN CORPUSCULAR HGB CONC 31 G/DL (32-36); MEAN CORPUSCULAR VOLUME 84 FL (80-99); MEAN PLATELET VOLUME 11.1 FL (7.4-10.4); MONOCYTES # (AUTO) 0.8 X 10^3 (0.0-1.0); MONOCYTES % (AUTO) 11 % (0-12); NEUTROPHILS # (AUTO) 4.6 X 10^3 (1.8-7.8); NEUTROPHILS % (AUTO) 65 % (42-75); PLATELET COUNT 292 10^3/uL (130-400); RED CELL DISTRIBUTION WIDTH 15.9 % (10.0-14.5)
[2019-10-01 05:54] VITALS: BP 117/77
[2019-10-01] MEDS: LEVOTHYROXINE 75 MCG (LEVOTHROID) TABLET PO SCH (06:01)
[2019-10-01 06:11] LABS: ALANINE AMINOTRANSFERASE 22 U/L (0-55); ALBUMIN 3.8 GM/DL (3.2-4.5); ALKALINE PHOSPHATASE 92 U/L (40-136); BILIRUBIN,TOTAL 0.5 MG/DL (0.1-1.0); BUN/CREATININE RATIO 19; CALCIUM 9.1 MG/DL (8.5-10.1); CARBON DIOXIDE 26 MMOL/L (21-32); CHLORIDE 103 MMOL/L (98-107); CREATININE SERUM 0.98 MG/DL (0.60-1.30); GFR ESTIMATED > 60; GLUCOSE 89 MG/DL (70-105); POTASSIUM 3.6 MMOL/L (3.6-5.0); SODIUM 139 MMOL/L (135-145); TOTAL PROTEIN 6.9 GM/DL (6.4-8.2)
[2019-10-01] MEDS: LACTOBACILLUS ACIDOPHILUS (PROBIOTIC) CAPSULE PEG SCH ×2 (08:47→21:05)
[2019-10-01] MEDS: ASPIRIN 81 MG CHEW (CHILDREN'S ASA) PO SCH (08:47)
[2019-10-01] MEDS: SENNA W/DOCUSATE (SENOKOT S) TABLET PO SCH ×2 (08:47→19:45)
[2019-10-01] MEDS: polyethylene glycoL POWDER 17 GM (MIRALAX) PACK PO SCH ×2 (08:48→19:45)
[2019-10-01] MEDS: ENOXAPARIN 40 MG/0.4 ML (LOVENOX) SYR SC SCH (08:48)
[2019-10-01] MEDS: DOCUSATE SODIUM 100 MG (COLACE) CAP PO SCH ×2 (08:48→19:45)
--- NOTE | 2019-10-01 08:55 | Physical Therapy Daily Note ---
PT Daily Note-Current Subjective Patient in bed pre tx, agrees to PT, has no complaints of pain. Patient needs brief changed (max assist with this, he can roll to the left side with min assist) Appearance Patient in recliner post tx with nurse call, phone, tray, all needs met, legs elevated, nurse in room. Mental Status Patient Orientation: Person, Non-Verbal/Aphasic, Mumbles Transfers SCALE: Activities may be completed with or without assistive devices. 6-Mecbepwuia-zdcqpol completes the activity by him/herself with no assistance from a helper. 5-Set-up or Clean-up Assistance-helper sets up or cleans up; patient completes activity. [place] assists only prior to or following the activity. 4-Supervision or Touching Assistance-helper provides verbal cues and/or touching/steadying and/or contact guard assistance as patient completes activity. Assistance may be provided throughout the activity or intermittently. 3-Partial/Moderate Assistance-helper does LESS THAN HALF the effort. [place] lifts, holds or supports trunk or limbs, but provides less than half the effort. 2-Substantial/Maximal Assistance-helper does MORE THAN HALF the effort. [place] lifts or holds trunk or limbs and provides more than half the effort. 8-Kzummisrt-frgmlp does ALL the effort. Patient does none of the effort to complete the activity. Or, the assistance of 2 or more helpers is required for the patient to complete the activity. If activity was not attempted, code reason: 7-Patient Refused. 9-Not Applicable-not attempted and the patient did not perform the activity before the current illness, exacerbation or injury. 10-Not Attempted due to Environmental Limitations-(lack of equipment, weather restraints, etc.). 88-Not Attempted due to Medical Conditions or Safety Concerns. Roll Left & Right (QC): 2 Lying to Sitting/Side of Bed(Q: 2 Sit to Stand (QC): 2 Chair/Sxf-et-Ayest Xfer(QC): 2 Patient can roll to the left side with min assist but max assist to the right side, patient has to roll to each side several times for changing brief and dressing. Patient stood x3, once in the parallel bars but he pushed too much to the left side with his right arm, twice outside of the bars with COMMAND AND CONTROL on the right side and max assist to stand, he pushed less but still leaned heavily to the left, stood each time for about 30 seconds Wheelchair Training Does the Pt Use a Wheelchair?: Yes Wheel 50 ft with 2 turns (QC): 2 Wheel 150 ft (QC): 2 Type of Wheelchair: Manual 150'x2, patient needs cues to keep on task, cues for direction and to use foot to try to steer Treatments dressing, changing brief, bed mobility and transfers, WC mobility, standing Assessment Current Status: Poor Progress no change in mobility PT Short Term Goals Short Term Goals Time Frame: Sep 19, 2019 Roll Left & Right: 2 Sit to lyin Lying to sitting on side of be: 2 Sit to stand: 2 Chair/mvs-ig-dmqkn transfer: 2 Wheel 50ft w/2 turns: 2 Wheel 150 feet: 2 PT Hose Inspector Goals Fpc Goals PT Fpc Goals Time Frame: Oct 03, 2019 Roll Left & Right (QC): 3 Sit to Lying (QC): 3 Lying-Sitting on Side/Bed(QC): 3 Sit to Stand (QC): 3 Chair/Igo-dc-Aqzgy Xfer(QC): 3 Toilet Transfer (QC): 3 Car Transfer (QC): 3 Does the Patient Walk: No and Walking Goal NOT indicated Walk 10 feet (QC): 88 Walk 50ft with 2 Turns (QC): 88 Walk 150 ft (QC): 88 Walking 10ft on Uneven Surface: 88 1 Step (curb) (QC): 88 4 Steps (QC): 88 12 Steps (QC): 88 Picking up an Object (QC): 88 Wheel 50 feet with 2 turns (QC: 3 Wheel 150 feet: 3 PT Plan Problem List Problem List: Activity Tolerance, Functional Strength, Safety, Balance, Gait, Transfer, Bed Mobility, ROM Treatment/Plan Treatment Plan: Continue Plan of Care Treatment Plan: Bed Mobility, Education, Functional Activity Aliyah, Functional Strength, Group Therapy, Gait, Safety, Therapeutic Exercise, Transfers Treatment Duration: Oct 03, 2019 Frequency: At least 5 of 7 days/Wk (IRF) Estimated Hrs Per Day: 1.5 hours per day Patient and/or Family Agrees t: Yes Safety Risks/Education Patient Education: Transfer Techniques, Correct Positioning, W/C Management, Safety Issues Teaching Recipient: Patient Teaching Methods: Demonstration, Discussion Response to Teaching: Reinforcement Needed Time/GCodes Time In: 0800 Time Out: 0900 Total Billed Treatment Time: 60 Total Billed Treatment 1 [address] [facility] 20' RUY MCGRATH PT Oct 01, 2019 08:55
[2019-10-01] MEDS: PANTOPRAZOLE 2 MG/ML LIQUID 200 ML (PROTONIX) PEG SCH ×6 (09:52→21:05)
--- NOTE | 2019-10-01 12:43 | Occupational Ther Daily Note ---
OT Current Status-Daily Note Subjective Pt sleeping in recliner, woke easily. Pt agrees to therapy. No c/o pain at this time. Mental Status/Objective Patient Orientation: Person, Place, Time, Situation ADL-Treatment Pt agrees to shower. Assist x2 for transfer, one person for SPT and one person to guide pt to sitting. Using rolling shower chair with cutout, pt was taken to large shower room. With verbal cues to initiate, pt able to wash upper body, jean-pierre area and upper legs with assist only to lift L UE to cleanse arm pit. Assist for buttocks and lower legs/feet. Pt required CGA and verbal cues for positioning in chair. Pt dependent with donning/doffing lower body clothing. Min A to doff upper body clothing and mod A to don. Max A to don/doff footwear. Pt was able to have BM while in shower, assist to cleanse after toileting. Pt transferred back to bed after shower and chose to remain in hospital gown. After setup, pt able to complete oral care. After therapy, pt lying in bed with call light/phone in reach. Nrsg aware of pt's positioning. All needs met in room. Therapy Code Descriptions/Definitions Functional [place] Measure: 0=Not Assessed/NA 4=Minimal Assistance 1=Total Assistance 5=Supervision or Setup 2=Maximal Assistance 6=Modified [place] 3=Moderate Assistance 7=Complete IndependenceSCALE: Activities may be completed with or without assistive devices. 4-Eqnvjjtomm-zldrmff completes the activity by him/herself with no assistance from a helper. 5-Set-up or Clean-up Assistance-helper sets up or cleans up; patient completes activity. [place] assists only prior to or following the activity. 4-Supervision or Touching Assistance-helper provides verbal cues and/or touching/steadying and/or contact guard assistance as patient completes activity. Assistance may be provided throughout the activity or intermittently. 3-Partial/Moderate Assistance-helper does LESS THAN HALF the effort. [place] lifts, holds or supports trunk or limbs, but provides less than half the effort. 2-Substantial/Maximal Assistance-helper does MORE THAN HALF the effort. [place] lifts or holds trunk or limbs and provides more than half the effort. 0-Qoojkhuzq-vfqufq does ALL the effort. Patient does none of the effort to complete the activity. Or, the assistance of 2 or more helpers is required for the patient to complete the activity. If activity was not attempted, code reason: 7-Patient Refused. 9-Not Applicable-not attempted and the patient did not perform the activity before the current illness, exacerbation or injury. 10-Not Attempted due to Environmental Limitations-(lack of equipment, weather restraints, etc.). 88-Not Attempted due to Medical Conditions or Safety Concerns. Eating (QC): 88 Oral Hygiene (QC): 5 Bathing Location: L Arm, R Arm, L Upper Leg, R Upper Leg, Chest, Abdomen, Perineal Area Shower/Bathe Self (QC): 2 Upper Body Dressing (QC): 3 Lower Body Dressing (QC): 1 On/Off Footwear: 2 Toileting Hygiene (QC): 2 Toilet Transfer (QC): 1 OT Short Term Goals Short Term Goals Time Frame: Sep 19, 2019 Shower/bathe self: 2 Upper body dressin Lower body dressin OT Half-Way Goals Fur Mixer Goals Time Frame: Oct 03, 2019 Eating (QC): 4 Oral Hygiene (QC): 4 Toileting Hygiene (QC): 3 Shower/Bathe Self (QC): 3 Upper Body Dressing (QC): 3 Lower Body Dressing (QC): 2 On/Off Footwear (QC): 2 Additional Goals: 1-Demonstrate ADL Tasks, 2-Verbalize Understanding, 3- ImproveStrength/Aliyah 1=Demonstrate adherence to instructed precautions during ADL tasks. 2=Patient will verbalize/demonstrate understanding of assistive devices/modifications for ADL. 3=Patient will improve strength/tolerance for activity to enable patient to perform ADL's. OT Education/Plan Problem List/Assessment Assessment: Decreased Activ Tolerance, Decreased Safety Aware, Impaired Bed Mobility, Impaired Coordination, Impaired Funct Balance, Impaired I ADL's, Impaired Self-Care Skills, Restricted Funct UE ROM, Visual-Perceptual Deficit (L neglect) Discharge Recommendations Plan/Recommendations: Continue POC Treatment Plan/Plan of Care Patient would benefit from OT for education, treatment and training to promote independence in ADL's, mobility, safety and/or upper extremity function for ADL's. Plan of Care: ADL Retraining, Caregiver Training, Functional Mobility, Group Exercise/Act as Ind, Orthotic Fitting/Training, UE Funct Exercise/Act, UE Torres romus Re-Ed/Coord, Visual/Perceptual Retrain, W/C Management Training Treatment Duration: Oct 03, 2019 Frequency: At least 5 of 7 days/Wk (IRF) Estimated Hrs Per Day: 1.5 hours per day Agreement: Yes Rehab Potential: Poor Time/GCodes Start Time: 10:45 Stop Time: 12:00 Total Time Billed (hr/min): 75 Billed Treatment Time 1 visit-ADL 5 (75 min) CALLIE LARIOS Oct 01, 2019 12:43
--- NOTE | 2019-10-01 13:19 | Speech Therapy Daily Note ---
Speech Daily Progress Note Subjective Date Seen by Provider: Oct 01, 2019 Time Seen by Provider: 00:30 Patient was resting in his recliner following his PEG tube feeding. Patient was alert and participated well. Objective Patient completed simple memory tasks with 85% given moderate cues. Assessment Assessment Current Status: Good Progress Treatment Plan Continue Plan of Care Speech Short Term Goals Short Term Goals Short Term Goals 1) Patient will complete expressive language exercises at 90% or greater with minimal cues. 2) Patient will complete OME x10 with 90% or greater with minimal cues. 3) Patient will complete oral trials with 90% or greater without s/s of aspiration. Speech Mcc Goals Mcc Goals Patient will improve speech production for effective communication of his wa nts/needs. Patient will maintain adequate nutrition/hydration via PEG and/or oral intake. Speech-Plan Patient/Family Goals Patient/Family Goals: Patient will discharge to SNF for continued rehab. Treatment Plan Speech Therapy Treatment Plan: Continue Plan of Care Treatment Duration: Sep 28, 2019 Frequency: 4 times per week (Patient will receive skilled ST 4-5x per week) Estimated Hrs Per Day: .5 hour per day Rehab Potential: Poor Barriers to Learning: Patient's affects of recent CVA Pt/Family Agrees to Plan: Yes Safety Risks/Education Teaching Recipient: Patient Teaching Methods: Demonstration, Discussion Response to Teaching: Verbalize Understanding, Return Demonstration Education Topics Provided: Continued safety within his room and utilization of the call light Time Speech Therapy Time In: 09:45 Speech Therapy Time Out: 10:15 Total Billed Time: 30 Billed Treatment Time 1, EARNEST Hu Oct 01, 2019 13:19
--- NOTE | 2019-10-01 14:51 | Physical Therapy Daily Note ---
PT Daily Note-Current Subjective Pt presents laying in bed sleeping prior to PT tx. Pt required cueing to stay on task and prevent sleeping during session. Pt gave minimal communication, but reported motions were "fine" and not painful. Appearance post PT treatment pt was left laying in bed covered by blanket with assess to call button. Mental Status Patient Orientation: Person, Eyes Open, [place] Transfers SCALE: Activities may be completed with or without assistive devices. 2-Gjhlplcglc-mlcwemf completes the activity by him/herself with no assistance from a helper. 5-Set-up or Clean-up Assistance-helper sets up or cleans up; patient completes activity. [place] assists only prior to or following the activity. 4-Supervision or Touching Assistance-helper provides verbal cues and/or touching/steadying and/or contact guard assistance as patient completes activity. Assistance may be provided throughout the activity or intermittently. 3-Partial/Moderate Assistance-helper does LESS THAN HALF the effort. [place] lifts, holds or supports trunk or limbs, but provides less than half the effort. 2-Substantial/Maximal Assistance-helper does MORE THAN HALF the effort. [place] lifts or holds trunk or limbs and provides more than half the effort. 6-Okhulmcog-khbcwq does ALL the effort. Patient does none of the effort to complete the activity. Or, the assistance of 2 or more helpers is required for the patient to complete the activity. If activity was not attempted, code reason: 7-Patient Refused. 9-Not Applicable-not attempted and the patient did not perform the activity before the current illness, exacerbation or injury. 10-Not Attempted due to Environmental Limitations-(lack of equipment, weather restraints, etc.). 88-Not Attempted due to Medical Conditions or Safety Concerns. Exercises Supine Ex: Ankle pumps, Quad Set, Glut sets, Heel Slides Supine Reps: 20 Treatments L hip and knee PROM Assessment Current Status: Poor Progress no changes in mobility, trouble following directions PT Short Term Goals Short Term Goals Time Frame: Sep 19, 2019 Roll Left & Right: 2 Sit to lyin Lying to sitting on side of be: 2 Sit to stand: 2 Chair/ula-cl-kwgfk transfer: 2 Wheel 50ft w/2 turns: 2 Wheel 150 feet: 2 PT Long-Term Goals Enrolled Agent Goals PT Long-Term Goals Time Frame: Oct 03, 2019 Roll Left & Right (QC): 3 Sit to Lying (QC): 3 Lying-Sitting on Side/Bed(QC): 3 Sit to Stand (QC): 3 Chair/Khc-mq-Imjth Xfer(QC): 3 Toilet Transfer (QC): 3 Car Transfer (QC): 3 Does the Patient Walk: No and Walking Goal NOT indicated Walk 10 feet (QC): 88 Walk 50ft with 2 Turns (QC): 88 Walk 150 ft (QC): 88 Walking 10ft on Uneven Surface: 88 1 Step (curb) (QC): 88 4 Steps (QC): 88 12 Steps (QC): 88 Picking up an Object (QC): 88 Wheel 50 feet with 2 turns (QC: 3 Wheel 150 feet: 3 PT Plan Problem List Problem List: Activity Tolerance, Functional Strength, Safety, Balance, Gait, Transfer, Bed Mobility, ROM Treatment/Plan Treatment Plan: Continue Plan of Care Treatment Plan: Bed Mobility, Education, Functional Activity Aliyah, Functional Strength, Group Therapy, Gait, Safety, Therapeutic Exercise, Transfers Treatment Duration: Oct 03, 2019 Frequency: At least 5 of 7 days/Wk (IRF) Estimated Hrs Per Day: 1.5 hours per day Patient and/or Family Agrees t: Yes Safety Risks/Education Patient Education: Correct Positioning, Safety Issues Teaching Recipient: Patient Teaching Methods: Demonstration, Discussion Response to Teaching: Reinforcement Needed Time/GCodes Time In: 1400 Time Out: 1415 Total Billed Treatment Time: 15 Total Billed Treatment 1 visit EX 15' RUY MCGRATH PT Oct 01, 2019 14:51
[2019-10-01 16:53] VITALS: BP 130/57
[2019-10-01] MEDS: ALPRAZolam 0.25 MG (XANAX) TAB PO PRN (21:05)
[2019-10-01] MEDS: MELATONIN 3 MG TABLET PO PRN (21:05)
[2019-10-02] MEDS: SUCRALFATE 1 GM (CARAFATE) TAB PO SCH ×4 (00:15→17:10)
[2019-10-02] MEDS: LEVOTHYROXINE 75 MCG (LEVOTHROID) TABLET PO SCH (05:12)
[2019-10-02 06:23] VITALS: BP 137/73
[2019-10-02] MEDS: PANTOPRAZOLE 2 MG/ML LIQUID 200 ML (PROTONIX) PEG SCH ×6 (08:15→21:47)
[2019-10-02] MEDS: SENNA W/DOCUSATE (SENOKOT S) TABLET PO SCH ×2 (08:17→21:37)
[2019-10-02] MEDS: DOCUSATE SODIUM 100 MG (COLACE) CAP PO SCH ×2 (08:17→21:36)
[2019-10-02] MEDS: ASPIRIN 81 MG CHEW (CHILDREN'S ASA) PO SCH (08:17)
[2019-10-02] MEDS: ENOXAPARIN 40 MG/0.4 ML (LOVENOX) SYR SC SCH (08:18)
[2019-10-02] MEDS: LACTOBACILLUS ACIDOPHILUS (PROBIOTIC) CAPSULE PEG SCH ×2 (08:18→21:47)
[2019-10-02] MEDS: polyethylene glycoL POWDER 17 GM (MIRALAX) PACK PO SCH ×2 (08:35→21:36)
--- NOTE | 2019-10-02 08:43 | PM&R Progress Note ---
Subjective HPI/CC On Admission Date Seen by Provider: Oct 02, 2019 Time Seen by Provider: 08:00 Subjective/Events-last exam 10/02/19: Family at the bedside Xanax and Melatonin were given to help him sleep but he didnt sleep well and that is periodic for him No pain is reported Participating in therapy half-way placement pending 10/01/19: Pt was coughing a bit but lungs are clear and he wasn't coughing with me Labs good, Hgb 11.7 No rectal bleeding Maintain on Lovenox for DVT prophylaxis 09/30/19: Patient feels ok TF tolerated Checked meds and labs No pain reported 09/29/19: Daughter at the bedside Patient has difficulty communicating No pain reported Needs NHP 09/28/19: Needs to go to NH No pain reported Slight smear of blood with BM so may not even be able to tolerate Lovenox DVT PPx dose 09/27/19: Went from bed to chair without a Sarah-lift today More alert today Had a BM three days ago so will start laxatives No nausea or vomiting Tolerating tube feedings Lovenox 40 Mg started for DVT prophylaxis He just can't seem to tolerate the therapeutic dose for AFIB because of GI bleeds 09/26/19: Insomnia much improved he slept very well last night Bowels are moving Tube feedings are tolerated since it is only one can at a time No falls Appears to be more motivated today 09/25/19: BP remains a little bit low, will replace ROLANDO hose Bowel and bladder incontinence noted today Peg tub will be utilized for increased fluid intake 09/24/19: Holding Lopressor due to orthostasis during PT today BP 125/70 after orthostasis episode resolved No nausea or vomiting Regular rhythm on exam 09/23/19: Tolerating TF well Lethargic is chronic No pain reported 09/22/19: BM yesterday Tolerating TF well No pain reported 09/21/19: Pt more talkative today No more bloody stools Two bowel movements last night were brown Decubitus ulcer on coccyx being monitored and managed 09/20/19: Pt sleeping most of the time Participating in therapy Tube feedings of one can every three hours is working a lot better for him, he is tolerating it better No more bloody stools Cardiology restarted Aspirin but Coumadin will continue to be held because he has had two GI bleeds in the past two weeks and cant withstand a colonoscopy prep Very complex case 09/19/19: Pt sleeps most of the time Will discuss disposition, I doubt any recovery potential Overall needs probably a assisted for long-term care 09/18/19: Insomnia is an issue Worked with PT today but seems to take a lot of naps during the day which disrupts the nighttime sleeping No pain is reported 09/17/19: Pt sleeps most of the time No major changes No bloody stools Off of Lovenox, Coumadin and Aspirin Second GI bleed in the last few weeks 09/16/19: No bloody stools today Hgb stable 10.3 Is not strong enough to undergo C-scope prep Dr Flores saw him this morning Holding ASA Lovenox Coumadin Had GI at [place] also Decreased cognition 09/15/19: Patient had been doing pretty well when I rounded No more nausea and vomiting like yesterday Tube feeding was restarted slowly I stopped the Clinimix since tube feedings were started N.p.o. 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 Flores general surgery was consulted and checked hemoglobin and hematocrit. 09/14/19: Had nausea and vomiting all last night Needs IV fluids gently so we'll start that today Urinary incontinence noted No fecal incontinence Holding tube feedings for right now Barium swallow today at 11:30 INR 1.4 will increase dose and provide Lovenox 09/13/19: Patient doing pretty well today Sleeping currently Therapy worked with him today Modified Barium Swallow scheduled Hemoglobin 9.6 Disoriented at times Bowels moved yesterday Conferred with RN Reviewed Therapy notes Checked Meds and Labs Review of Systems General: Fatigue, Malaise Neurological: Weakness Objective Exam Vital Signs Vital Signs Date Time Temp Pulse Resp B/P (MAP) Pulse Ox O2 Delivery O2 Flow Rate FiO2 10/02/19 16:45 36.4 90 16 108/72 (84) 96 Room Air Capillary Refill : Less Than 3 SecondsLess Than 3 Seconds General Appearance: No Apparent Distress, WD/WN, Chronically ill HEENT: PERRL/EOMI, Normal ENT Inspection, Pharynx Normal Neck: Full Range of Motion, Normal Inspection, Non Tender, Supple, Carotid Bruit Respiratory: Chest Non Tender, Lungs Clear, Normal Breath Sounds, No Accessory Muscle Use, No Respiratory Distress Cardiovascular: No Edema, No Gallop, No JVD, No Murmur, Normal Peripheral Pulses, Irregularly Irregular Gastrointestinal: Normal Bowel Sounds, No Organomegaly, No Pulsatile Mass, Non Tender, Soft Back: Normal Inspection, No CVA Tenderness, No Vertebral Tenderness Extremity: Normal Capillary Refill, Normal Inspection, Normal Range of Motion, Non Tender, No Calf Tenderness, Pedal Edema Neurologic/Psychiatric: Alert, Oriented x3, Normal 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 FIM Transfers Therapy Code Descriptions/Definitions Functional [place] Measure: 0=Not Assessed/NA 4=Minimal Assistance 1=Total Assistance 5=Supervision or Setup 2=Maximal Assistance 6=Modified [place] 3=Moderate Assistance 7=Complete IndependenceSCALE: Activities may be completed with or without assistive devices. 9-Dmemhcejnc-arirbvl completes the activity by him/herself with no assistance from a helper. 5-Set-up or Clean-up Assistance-helper sets up or cleans up; patient completes activity. [place] assists only prior to or following the activity. 4-Supervision or Touching Assistance-helper provides verbal cues and/or touching/steadying and/or contact guard assistance as patient completes activity. Assistance may be provided throughout the activity or intermittently. 3-Partial/Moderate Assistance-helper does LESS THAN HALF the effort. [place] lifts, holds or supports trunk or limbs, but provides less than half the effort. 2-Substantial/Maximal Assistance-helper does MORE THAN HALF the effort. [place] lifts or holds trunk or limbs and provides more than half the effort. 0-Uhgcvrjpm-jgliaa does ALL the effort. Patient does none of the effort to complete the activity. Or, the assistance of 2 or more helpers is required for the patient to complete the activity. If activity was not attempted, code reason: 7-Patient Refused. 9-Not Applicable-not attempted and the patient did not perform the activity before the current illness, exacerbation or injury. 10-Not Attempted due to Environmental Limitations-(lack of equipment, weather restraints, etc.). 88-Not Attempted due to Medical Conditions or Safety Concerns. Roll Left to Right (QC): 2 Sit to Lying (QC): 2 Sit to Stand (QC): 2 Chair/Hce-tg-Tnfne Xfer(QC): 2 Car Transfer (QC): 1 Gait Training Does the Patient Walk?: No and Walking Goal NOT indicated Walk 10 feet (QC): 88 Walk 50 ft with 2 Turns(QC): 88 Walk 150 ft (QC): 88 Walking 10ft/uneven surface-QC: 88 Wheelchair Training Does the Pt Use a Wheelchair?: Yes Distance: 150'x2 Wheel 50 ft with 2 turns (QC): 2 Wheel 150 ft (QC): 2 Type of Wheelchair: Manual Stair Training 1 Step (curb) (QC): 88 4 Steps (QC): 88 12 Steps (QC): 88 Balance Picking up an Object (QC): 88 ADL-Treatment Eating (QC): 88 Oral Hygiene (QC): 5 Bathing Location: L Arm, R Arm, L Upper Leg, R Upper Leg, Chest, Abdomen, Perineal Area Shower/Bathe Self (QC): 2 Upper Body Dressing (QC): 3 Lower Body Dressing (QC): 1 On/Off Footwear (QC): 2 Toileting Hygiene (QC): 2 Toilet Transfer (QC): 1 Assessment/Plan Assessment and Plan Assess & Plan/Chief Complaint Assessment: CVA Left sided weakness Left sided neglect PEG tube status Dysphagia Aspiration hx with PNA CAD AF Coumadin treatment GIB 09/14/19 Plan: IRF protocol ST to work on dysphagia TF to be maintained Coumadin treatment Cardiology evaluation 09/13/19: Continue aggressive treatment Barium Swallow Monitor Hemoglobin 09/14/19: Give gentle IV fluids Increase INR with Coumadin with Lovenox bridge Barium swallow today 09/15/2019: Monitor GI bleed Hold Coumadin and Lovenox and aspirin Hold tube feedings Consult general surgery for endoscopies Maintain n.p.o. status due to aspiration risk 09/16/19: Monitor Hgb NPO Aspiration risk TF gently 09/17/19: No major changes Sleeping most of the time Stay off blood thinners due to second GI bleed 09/18/19: Insomnia treatment Continue aggressive physical therapy 09/19/19: Disposition will be discussed in team conference Tube feedings are tolerated well No more bloody stools Scrotum seems to be bleeding at times 09/19/19: Continue tube feedings of 1 can every 3 hours Sleeps most of the time No more bloody stools Aspirin was restarted Two GI bleeds in less than 2 weeks precludes restarting Coumadin 09/21/19: No more bloody stools Bowels are now light brown Coccyx has alevan to help heal 09/22/19: TF working well when using 1 can at a time No pain reported Continue therapy 09/23/19: Maintain TF for now 1 can at at time Fall risk IRF protocol 09/24/19: Monitor orthostasis Monitor hemoglobin Appreciate Dietary input 09/25/19: Replace ROLANDO hose to limit orthostasis Increasing PEG tube fluid Noted bowel and bladder dysfunction today 09/26/19: TF to continue Increase therapy Monitor for pain and falls 09/27/19: TF continues and doing well No pain reported Fall risk 09/28/19: Needs NHP Monitor Lovenox complications 09/29/19: No bloody stools TF tolerated Needs NH 09/30/19: SNF admit TF maintained 10/01/19: Monitor coughing Labs stable Continue tube feedings senior care facility at discharge 10/02/19: half-way placement required Insomnia treatment the best we can (1) CVA (cerebral vascular accident) (2) Atrial fibrillation with normal ventricular rate (3) CAD (coronary artery disease) (4) Stented coronary artery (5) Dysphagia (6) Left-sided weakness (7) At risk for aspiration (8) PEG (percutaneous endoscopic gastrostomy) status (9) On warfarin therapy (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
--- NOTE | 2019-10-02 09:27 | Occupational Ther Daily Note ---
OT Current Status-Daily Note Subjective Pt's eyes open though not as alert as yesterday. Pt having difficulty responding to questions, if he responds at all. Pt will look at [place] when directed to. Throughout session, pt is following directions with verbal/physical cues. No c/o pain at this time. Mental Status/Objective Patient Orientation: Person, Place, Time, Situation ADL-Treatment Co-treat with PT ([id number]), skills of 2 clinicians required for neuromuscular retraining to continue progressing with mobility (w/c, bed), SEB assist x2, raina cuello assist x3 and ADLs. PT working on B LE strengthening, NM retraining LE's, transfers, w/c mobility and standing. OT working on B UE strengthening, NM retraining, functional transfers, standing and ADLs. OT placing L UE/LE in optimal position for standing, transfers. Pt dependent with lower body dressing and toileting. Pt is able to assist with rolling toward L side though requires assistance to stay on L side while 2nd person completes hygiene and dressing. Assist x2 to roll toward R side and stay on side during hygiene and dressing. Assist x2 for supine to EOB then CGA for sitting EOB. Mod A to don/doff shirt with one-handed technique. Therapy Code Descriptions/Definitions Functional [place] Measure: 0=Not Assessed/NA 4=Minimal Assistance 1=Total Assistance 5=Supervision or Setup 2=Maximal Assistance 6=Modified [place] 3=Moderate Assistance 7=Complete IndependenceSCALE: Activities may be completed with or without assistive devices. 4-Qvmihcyqrc-qobrgzf completes the activity by him/herself with no assistance from a helper. 5-Set-up or Clean-up Assistance-helper sets up or cleans up; patient completes activity. [place] assists only prior to or following the activity. 4-Supervision or Touching Assistance-helper provides verbal cues and/or touching/steadying and/or contact guard assistance as patient completes activity. Assistance may be provided throughout the activity or intermittently. 3-Partial/Moderate Assistance-helper does LESS THAN HALF the effort. [place] lifts, holds or supports trunk or limbs, but provides less than half the effort. 2-Substantial/Maximal Assistance-helper does MORE THAN HALF the effort. [place] lifts or holds trunk or limbs and provides more than half the effort. 9-Virwlskll-kjvrny does ALL the effort. Patient does none of the effort to complete the activity. Or, the assistance of 2 or more helpers is required for the patient to complete the activity. If activity was not attempted, code reason: 7-Patient Refused. 9-Not Applicable-not attempted and the patient did not perform the activity before the current illness, exacerbation or injury. 10-Not Attempted due to Environmental Limitations-(lack of equipment, weather restraints, etc.). 88-Not Attempted due to Medical Conditions or Safety Concerns. Eating (QC): 88 Oral Hygiene (QC): 5 (Set up required then pt is able to complete oral hygiene by self.) Upper Body Dressing (QC): 3 (Mod A with verbal cues.) Lower Body Dressing (QC): 1 On/Off Footwear: 2 (Max A) Toileting Hygiene (QC): 1 Toilet Transfer (QC): 1 Other Treatment SPT with assist x2 to w/c. Pt working on w/c mobility, requires min A and verbal cues. Pt stood with assist x3, tendency for pt to lift L foot and push towards L side with R LE/UE. Pt propelled w/c back to room with min A. Then completed oral care (setup) and grooming (min A due to L neglect). Pt had difficulty today maintaining midline with head and eyes. After session, pt sitting in recliner with karson sling. Call light/phone in reach. present in room. All needs met in room. Education OT Patient Education: Transfer techniques, W/C management Teaching Recipient: Patient Teaching Methods: Demonstration, Discussion Response to Teaching: Verbalize Understanding, Return Demonstration, Reinforcement Needed OT Short Term Goals Short Term Goals Time Frame: Sep 19, 2019 Shower/bathe self: 2 Upper body dressin Lower body dressin OT Custodial Goals Custodial Goals Time Frame: Oct 03, 2019 Eating (QC): 4 Oral Hygiene (QC): 4 Toileting Hygiene (QC): 3 Shower/Bathe Self (QC): 3 Upper Body Dressing (QC): 3 Lower Body Dressing (QC): 2 On/Off Footwear (QC): 2 Additional Goals: 1-Demonstrate ADL Tasks, 2-Verbalize Understanding, 3- ImproveStrength/Aliyah 1=Demonstrate adherence to instructed precautions during ADL tasks. 2=Patient will verbalize/demonstrate understanding of assistive devices/mo difications for ADL. 3=Patient will improve strength/tolerance for activity to enable patient to perform ADL's. OT Education/Plan Problem List/Assessment Assessment: Decreased Activ Tolerance, Decreased Safety Aware, Decreased UE Strength, Dependent Transfers, Impaired Bed Mobility, Impaired Coordination, Impaired Funct Balance, Impaired I ADL's, Impaired Self-Care Skills, Restricted Funct UE ROM, Visual-Perceptual Deficit Discharge Recommendations Plan/Recommendations: Continue POC Treatment Plan/Plan of Care Patient would benefit from OT for education, treatment and training to promote independence in ADL's, mobility, safety and/or upper extremity function for ADL's. Plan of Care: ADL Retraining, Caregiver Training, Functional Mobility, Group Exercise/Act as Ind, Orthotic Fitting/Training, UE Funct Exercise/Act, UE Neuromus Re-Ed/Coord, Visual/Perceptual Retrain, W/C Management Training Treatment Duration: Oct 03, 2019 Frequency: At least 5 of 7 days/Wk (IRF) Estimated Hrs Per Day: 1.5 hours per day Agreement: Yes Rehab Potential: Poor Time/GCodes Start Time: 08:30 Stop Time: 09:45 Total Time Billed (hr/min): 75 Billed Treatment Time 1 visit-NM 2 (30 min) ADL 3 (45 min) co-treat with PT [id number] (30 min) individual [id number] (45 min) CALLIE LARIOS Oct 02, 2019 09:27
--- NOTE | 2019-10-02 11:03 | NUR ---
PT IS ON ROOM AIR AT THIS TIME. PT DENIES ANY SHORTNESS OF BREATH. PT IS IN NO RESPIRATORY DISTRESS AT THIS TIME. Addendum: 10/02/19 at 1104 by ARA NESBITT RT Amended: Links added.
--- NOTE | 2019-10-02 12:06 | Physical Therapy Daily Note ---
PT Daily Note-Current Subjective Pt asleep Supine in bed upon arrival. Pt very drowsy, Nursing states pt is not sleeping well. Pt agrees to PT/OT co-treat. Mental Status Patient Orientation: Person Attachments: PEG Tube Transfers SCALE: Activities may be completed with or without assistive devices. 9-Znojgsgktj-bfmroci completes the activity by him/herself with no assistance from a helper. 5-Set-up or Clean-up Assistance-helper sets up or cleans up; patient completes activity. [place] assists only prior to or following the activity. 4-Supervision or Touching Assistance-helper provides verbal cues and/or touching/steadying and/or contact guard assistance as patient completes activity. Assistance may be provided throughout the activity or intermittently. 3-Partial/Moderate Assistance-helper does LESS THAN HALF the effort. [place] lifts, holds or supports trunk or limbs, but provides less than half the effort. 2-Substantial/Maximal Assistance-helper does MORE THAN HALF the effort. [place] lifts or holds trunk or limbs and provides more than half the effort. 1-Wbejehwhz-mdhmaz does ALL the effort. Patient does none of the effort to complete the activity. Or, the assistance of 2 or more helpers is required for the patient to complete the activity. If activity was not attempted, code reason: 7-Patient Refused. 9-Not Applicable-not attempted and the patient did not perform the activity before the current illness, exacerbation or injury. 10-Not Attempted due to Environmental Limitations-(lack of equipment, weather restraints, etc.). 88-Not Attempted due to Medical Conditions or Safety Concerns. Roll Left & Right (QC): 2 Sit to Lying (QC): 1 Lying to Sitting/Side of Bed(Q: 1 Sit to Stand (QC): 2 Chair/Ozy-eu-Gbycr Xfer(QC): 2 Weight Bearing Full Weight Bearing Full Weight Bearing Wheelchair Training Does the Pt Use a Wheelchair?: Yes Wheel 50 ft with 2 turns (QC): 2 Wheel 150 ft (QC): 2 Type of Wheelchair: Manual Exercises Supine Ex: Ankle pumps, Quad Set, Heel Slides, Straight leg raise, Hip abd/add Supine Reps: 15 Seated Therapy Exercises: Sit to stand Treatments Co-treat with PT ([id number]), skills of 2 clinicians required for neuromuscular retraining to continue progressing with mobility (w/c, bed), SPT assist x2, standing assist x3 and ADLs. PT working on B LE strengthening, NM retraining LE's, transfers, w/c mobility and standing. OT working on B UE strengthening, NM retraining, functional transfers, standing and ADLs. OT placing L UE/LE in optimal position for standing, transfers. Pt dependent with lower body dressing and toileting. Pt is able to assist with rolling toward L side though requires assistance to stay on L side while 2nd person completes hygiene and dressing. Assist x2 to roll toward R side and stay on side during hygiene and dressing. Assist x2 for supine to EOB then CGA for sitting EOB. SPT with assist x2 to w/c. Pt working on w/c mobility, requires min A and verbal cues. Pt stood with assist x3, tendency for pt to lift L foot and push towards L side with R LE/UE. Pt continues to work with OT at end of PT tx. Assessment Current Status: Good Progress Pt had difficulty today maintaining midline with head and eyes. PT Short Term Goals Short Term Goals Time Frame: Sep 19, 2019 Roll Left & Right: 2 Sit to lyin Lying to sitting on side of be: 2 Sit to stand: 2 Chair/byi-mu-mnmcd transfer: 2 Wheel 50ft w/2 turns: 2 Wheel 150 feet: 2 PT Pharmacy Specialist Goals Intermediate Goals PT Intermediate Goals Time Frame: Oct 03, 2019 Roll Left & Right (QC): 3 Sit to Lying (QC): 3 Lying-Sitting on Side/Bed(QC): 3 Sit to Stand (QC): 3 Chair/Xig-mi-Ycaks Xfer(QC): 3 Toilet Transfer (QC): 3 Car Transfer (QC): 3 Does the Patient Walk: No and Walking Goal NOT indicated Walk 10 feet (QC): 88 Walk 50ft with 2 Turns (QC): 88 Walk 150 ft (QC): 88 Walking 10ft on Uneven Surface: 88 1 Step (curb) (QC): 88 4 Steps (QC): 88 12 Steps (QC): 88 Picking up an Object (QC): 88 Wheel 50 feet with 2 turns (QC: 3 Wheel 150 feet: 3 PT Plan Problem List Problem List: Activity Tolerance, Functional Strength, Safety, Balance, Transfer, Bed Mobility Treatment/Plan Treatment Plan: Continue Plan of Care Treatment Plan: Bed Mobility, Education, Functional Activity Aliyah, Functional Strength, Group Therapy, Gait, Safety, Therapeutic Exercise, Transfers Treatment Duration: Oct 03, 2019 Frequency: At least 5 of 7 days/Wk (IRF) Estimated Hrs Per Day: 1.5 hours per day Patient and/or Family Agrees t: Yes Safety Risks/Education Patient Education: Transfer Techniques, Correct Positioning, Safety Issues Teaching Recipient: Patient Teaching Methods: Discussion Response to Teaching: Verbalize Understanding Time/GCodes Time In: 815 Time Out: 915 Total Billed Treatment Time: 60 Total Billed Treatment 1, EX (20m), FA x3 (40m) Co-treat w/OT for 45m ([id number]) ANTHONY DELEON PTA Oct 02, 2019 12:06
--- NOTE | 2019-10-02 12:26 | Speech Therapy Daily Note ---
Speech Daily Progress Note Subjective Date Seen by Provider: Oct 02, 2019 Time Seen by Provider: 00:30 Patient was resting in his bed with family at his bedside. Patient was sleepy today and required frequent prompts to participate. Objective Patient attended to therapy with frequent cues. Patient answered a series of questions related to immediate self and needs with 80% given maximum cues. Assessment Assessment Current Status: Fair Progress Treatment Plan Continue Plan of Care Speech Short Term Goals Short Term Goals Short Term Goals 1) Patient will complete expressive language exercises at 90% or greater with minimal cues. 2) Patient will complete OME x10 with 90% or greater with minimal cues. 3) Patient will complete oral trials with 90% or greater without s/s of aspiration. Speech Operating Room Rn Goals [facility] Goals Patient will improve speech production for effective communication of his wants/needs. Patient will maintain adequate nutrition/hydration via PEG and/or oral intake. Speech-Plan Patient/Family Goals Patient/Family Goals: Patient will discharge to SNF following this rehab admission. Treatment Plan Speech Therapy Treatment Plan: Continue Plan of Care Treatment Duration: Oct 05, 2019 Frequency: 4 times per week (Patient will receive skilled ST 4-5x per week) Estimated Hrs Per Day: .5 hour per day Rehab Potential: Poor Barriers to Learning: Patient's level of function, decreased cognitive function due to CVA Pt/Family Agrees to Plan: Yes Safety Risks/Education Teaching Recipient: Patient, Family Teaching Methods: Demonstration, Discussion Response to Teaching: Verbalize Understanding, Return Demonstration, Reinforcement Needed Education Topics Provided: Continued communication of wants/needs Time Speech Therapy Time In: 10:30 Speech Therapy Time Out: 11:00 Total Billed Time: 30 Billed Treatment Time 1VONDA BETH[address] ST Oct 02, 2019 12:26
--- NOTE | 2019-10-02 15:40 | Physical Therapy Daily Note ---
PT Daily Note-Current Subjective Pt laying Supine in bed upon arrival. Pt agrees to PT. Nurse is present and notices pt is wet. KAI WHAKARURUHAU will assist. Mental Status Patient Orientation: Person Attachments: PEG Tube Transfers SCALE: Activities may be completed with or without assistive devices. 2-Bdgticnwxb-jcttqhb completes the activity by him/herself with no assistance from a helper. 5-Set-up or Clean-up Assistance-helper sets up or cleans up; patient completes activity. [place] assists only prior to or following the activity. 4-Supervision or Touching Assistance-helper provides verbal cues and/or touching/steadying and/or contact guard assistance as patient completes activity. Assistance may be provided throughout the activity or intermittently. 3-Partial/Moderate Assistance-helper does LESS THAN HALF the effort. [place] lifts, holds or supports trunk or limbs, but provides less than half the effort. 2-Substantial/Maximal Assistance-helper does MORE THAN HALF the effort. [place] lifts or holds trunk or limbs and provides more than half the effort. 7-Lfuriljeu-penwtv does ALL the effort. Patient does none of the effort to complete the activity. Or, the assistance of 2 or more helpers is required for the patient to complete the activity. If activity was not attempted, code reason: 7-Patient Refused. 9-Not Applicable-not attempted and the patient did not perform the activity bef ore the current illness, exacerbation or injury. 10-Not Attempted due to Environmental Limitations-(lack of equipment, weather r estraints, etc.). 88-Not Attempted due to Medical Conditions or Safety Concerns. Roll Left & Right (QC): 2 Weight Bearing Full Weight Bearing Full Weight Bearing Exercises Supine Ex: Rolling, Scooting Treatments KAI WHAKARURUHAU assists Nurse with brief change. Pt completes rolling and scooting with assistance. Pt resting in bed with Sp present, all needs met, call light next to pt. Assessment Current Status: Fair Progress Pt is getting stronger but still demonstrates need for assistance. PT Short Term Goals Short Term Goals Time Frame: Sep 19, 2019 Roll Left & Right: 2 Sit to lyin Lying to sitting on side of be: 2 Sit to stand: 2 Chair/kfq-sv-qisso transfer: 2 Wheel 50ft w/2 turns: 2 Wheel 150 feet: 2 PT Iron Worker Apprentice Goals Custodial Goals PT Iron Worker Apprentice Goals Time Frame: Oct 03, 2019 Roll Left & Right (QC): 3 Sit to Lying (QC): 3 Lying-Sitting on Side/Bed(QC): 3 Sit to Stand (QC): 3 Chair/Whm-ik-Zcxox Xfer(QC): 3 Toilet Transfer (QC): 3 Car Transfer (QC): 3 Does the Patient Walk: No and Walking Goal NOT indicated Walk 10 feet (QC): 88 Walk 50ft with 2 Turns (QC): 88 Walk 150 ft (QC): 88 Walking 10ft on Uneven Surface: 88 1 Step (curb) (QC): 88 4 Steps (QC): 88 12 Steps (QC): 88 Picking up an Object (QC): 88 Wheel 50 feet with 2 turns (QC: 3 Wheel 150 feet: 3 PT Plan Problem List Problem List: Activity Tolerance, Functional Strength, Safety, Transfer Treatment/Plan Treatment Plan: Continue Plan of Care Treatment Plan: Bed Mobility, Education, Functional Activity Aliyah, Functional Strength, Group Therapy, Gait, Safety, Therapeutic Exercise, Transfers Treatment Duration: Oct 03, 2019 Frequency: At least 5 of 7 days/Wk (IRF) Estimated Hrs Per Day: 1.5 hours per day Patient and/or Family Agrees t: Yes Safety Risks/Education Patient Education: Transfer Techniques, Correct Positioning, Safety Issues Teaching Recipient: Patient Teaching Methods: Discussion Response to Teaching: Verbalize Understanding Time/GCodes Time In: 1345 Time Out: 1400 Total Billed Treatment Time: 15 Total Billed Treatment 1, FA (15m) ANTHONY DELEON KAI WHAKARURUHAU Oct 02, 2019 15:40
--- NOTE | 2019-10-02 16:38 | NUR ---
CM/SS CONCURRENT DOCUMENTATION Patient's spouse Oksana here today, accompanied haris ToneyondinaMiguel for patient/spouse DPOA's. Lengthy phone conversation with daughter Marisela Garduno who continues to be very proactive regarding post hospital care planning. She and Oksana went yesterday to multiple resources in [place] to explore all aspects of having patient placed in LTC community facility as well as financial pros and cons. They essentially walked away feeling they absolutely could not afford to place patient knowing his [employer] insurance would not cover costs long and it would quickly become private pay. They determined this would be a burden to Oksana and maintenance of their family home, etc., either full on or division of assets. Marisela has done some outstanding research regarding assistive devices, in-home caregivers. Music Leader suggested contacting [facility] [place] which may include [facility] for possible senior supportive care opportunities to supplement. Hospice was discussed; however, their goal is for patient to continue therapy hoping for a higher level of independency reducing caregiver burden. Marisela also spoke with patient's PCP, Dr. Ginette Campbell, in [place]. At her request, caption writer will provide clinical information as the family is reaching out to include Dr. Campbell as an advisor for next steps. Plan at this time is for family education for patient hands on care. There are three children, Marisela is primary at this time for input. She teaches until 0800 online, she indicates she could be here around 1000 on a scheduled day. Reaching out to therapy team for assistance scheduling. Hopeful both Oksana and Marisela can come the same day. If the final goal is home, assistive devices will need to be in place before patient can discharge. The ARU team will be involved to assist family for the most successful next steps regarding home performance, care, and safety.
[2019-10-02 16:45] VITALS: BP 108/72
[2019-10-02] MEDS: HEMORRHOIDAL SUPP (PREPARATION H) PR PRN (20:23)
[2019-10-02] MEDS: ALPRAZolam 0.25 MG (XANAX) TAB PO PRN (21:47)
[2019-10-02] MEDS: MELATONIN 3 MG TABLET PO PRN (21:47)
[2019-10-03] MEDS: SUCRALFATE 1 GM (CARAFATE) TAB PO SCH ×5 (00:35→23:10)
[2019-10-03 06:07] VITALS: BP 152/93
[2019-10-03] MEDS: LEVOTHYROXINE 75 MCG (LEVOTHROID) TABLET PO SCH (06:13)
[2019-10-03] MEDS: ASPIRIN 81 MG CHEW (CHILDREN'S ASA) PO SCH (08:34)
[2019-10-03] MEDS: SCOPOLAMINE 1.5 MG (TRANSDERM-SCOP) PATCH TD SCH (08:35)
[2019-10-03] MEDS: SENNA W/DOCUSATE (SENOKOT S) TABLET PO SCH ×2 (08:35→20:31)
[2019-10-03] MEDS: ENOXAPARIN 40 MG/0.4 ML (LOVENOX) SYR SC SCH (08:35)
[2019-10-03] MEDS: LACTOBACILLUS ACIDOPHILUS (PROBIOTIC) CAPSULE PEG SCH ×2 (08:35→20:29)
[2019-10-03] MEDS: SCOPOLAMINE PATCH REMOVAL TP SCH (08:35)
[2019-10-03] MEDS: DOCUSATE SODIUM 100 MG (COLACE) CAP PO SCH ×2 (08:35→20:31)
[2019-10-03] MEDS: PANTOPRAZOLE 2 MG/ML LIQUID 200 ML (PROTONIX) PEG SCH ×6 (08:35→20:30)
--- NOTE | 2019-10-03 08:56 | PM&R Progress Note ---
Subjective HPI/CC On Admission Date Seen by Provider: Oct 03, 2019 Time Seen by Provider: 08:00 Subjective/Events-last exam 10/03/19: DC to daughter's house next week Working hard during therapy More alert today 10/02/19: Family at the bedside Xanax and Melatonin were given to help him sleep but he didnt sleep well and that is periodic for him No pain is reported Participating in therapy halfway placement pending 10/01/19: Pt was coughing a bit but lungs are clear and he wasn't coughing with me Labs good, Hgb 11.7 No rectal bleeding Maintain on Lovenox for DVT prophylaxis 09/30/19: Patient feels ok TF tolerated Checked meds and labs No pain reported 09/29/19: Daughter at the bedside Patient has difficulty communicating No pain reported Needs NHP 09/28/19: Needs to go to NH No pain reported Slight smear of blood with BM so may not even be able to tolerate Lovenox DVT PPx dose 09/27/19: Went from bed to chair without a Sarah-lift today More alert today Had a BM three days ago so will start laxatives No nausea or vomiting Tolerating tube feedings Lovenox 40 Mg started for DVT prophylaxis He just can't seem to tolerate the therapeutic dose for AFIB because of GI bleeds 09/26/19: Insomnia much improved he slept very well last night Bowels are moving Tube feedings are tolerated since it is only one can at a time No falls Appears to be more motivated today 09/25/19: BP remains a little bit low, will replace ROLANDO hose Bowel and bladder incontinence noted today Peg tub will be utilized for increased fluid intake 09/24/19: Holding Lopressor due to orthostasis during PT today BP 125/70 after orthostasis episode resolved No nausea or vomiting Regular rhythm on exam 09/23/19: Tolerating TF well Lethargic is chronic No pain reported 09/22/19: BM yesterday Tolerating TF well No pain reported 09/21/19: Pt more talkative today No more bloody stools Two bowel movements last night were brown Decubitus ulcer on coccyx being monitored and managed 09/20/19: Pt sleeping most of the time Participating in therapy Tube feedings of one can every three hours is working a lot better for him, he is tolerating it better No more bloody stools Cardiology restarted Aspirin but Coumadin will continue to be held because he has had two GI bleeds in the past two weeks and cant withstand a colonoscopy prep Very complex case 09/19/19: Pt sleeps most of the time Will discuss disposition, I doubt any recovery potential Overall needs probably a assisted for long-term care 09/18/19: Insomnia is an issue Worked with PT today but seems to take a lot of naps during the day which disrupts the nighttime sleeping No pain is reported 09/17/19: Pt sleeps most of the time No major changes No bloody stools Off of Lovenox, Coumadin and Aspirin Second GI bleed in the last few weeks 09/16/19: No bloody stools today Hgb stable 10.3 Is not strong enough to undergo C-scope prep Dr Flores saw him this morning Holding ASA Lovenox Coumadin Had GI at [facility] also Decreased cognition 09/15/19: Patient had been doing pretty well when I rounded No more nausea and vomiting like yesterday Tube feeding was restarted slowly I stopped the Clinimix since tube feedings were started N.p.o. 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 Flores general surgery was consulted and checked hemoglobin and hematocrit. 09/14/19: Had nausea and vomiting all last night Needs IV fluids gently so we'll start that today Urinary incontinence noted No fecal incontinence Holding tube feedings for right now Barium swallow today at 11:30 INR 1.4 will increase dose and provide Lovenox 09/13/19: Patient doing pretty well today Sleeping currently Therapy worked with him today Modified Barium Swallow scheduled Hemoglobin 9.6 Disoriented at times Bowels moved yesterday Conferred with RN Reviewed Therapy notes Checked Meds and Labs Review of Systems General: Fatigue, Malaise Neurological: Weakness Objective Exam Vital Signs Vital Signs Date Time Temp Pulse Resp B/P (MAP) Pulse Ox O2 Delivery O2 Flow Rate FiO2 10/03/19 17:32 36.4 84 16 124/58 (80) 98 Room Air Capillary Refill : Less Than 3 SecondsLess Than 3 Seconds General Appearance: No Apparent Distress, WD/WN, Chronically ill HEENT: PERRL/EOMI, Normal ENT Inspection, Pharynx Normal Neck: Full Range of Motion, Normal Inspection, Non Tender, Supple, Carotid Bruit Respiratory: Chest Non Tender, Lungs Clear, Normal Breath Sounds, No Accessory Muscle Use, No Respiratory Distress Cardiovascular: No Edema, No Gallop, No JVD, No Murmur, Normal Peripheral Pulses, Irregularly Irregular Gastrointestinal: Normal Bowel Sounds, No Organomegaly, No Pulsatile Mass, Non Tender, Soft Back: Normal Inspection, No CVA Tenderness, No Vertebral Tenderness Extremity: Normal Capillary Refill, Normal Inspection, Normal Range of Motion, Non Tender, No Calf Tenderness, Pedal Edema Neurologic/Psychiatric: Alert, Oriented x3, Normal Mood/Affect, rn neurology II-XII Norm as Tested, Aphasia, Facial Droop, Motor Weakness Skin: Normal Color, Warm/Dry Lymphatic: No Adenopathy Results/Procedures Lab Patient resulted labs reviewed. FIM Transfers Therapy Code Descriptions/Definitions Functional Reform Measure: 0=Not Assessed/NA 4=Minimal Assistance 1=Total Assistance 5=Supervision or Setup 2=Maximal Assistance 6=Modified Reform 3=Moderate Assistance 7=Complete IndependenceSCALE: Activities may be completed with or without assistive devices. 1-Lnvhnlopmw-wrlvreg completes the activity by him/herself with no assistance from a helper. 5-Set-up or Clean-up Assistance-helper sets up or cleans up; patient completes activity. [place] assists only prior to or following the activity. 4-Supervision or Touching Assistance-helper provides verbal cues and/or touching/steadying and/or contact guard assistance as patient completes activity. Assistance may be provided throughout the activity or intermittently. 3-Partial/Moderate Assistance-helper does LESS THAN HALF the effort. [place] lifts, holds or supports trunk or limbs, but provides less than half the effort. 2-Substantial/Maximal Assistance-helper does MORE THAN HALF the effort. [place] lifts or holds trunk or limbs and provides more than half the effort. 6-Qzhcudzuh-cdyvyl does ALL the effort. Patient does none of the effort to complete the activity. Or, the assistance of 2 or more helpers is required for the patient to complete the activity. If activity was not attempted, code reason: 7-Patient Refused. 9-Not Applicable-not attempted and the patient did not perform the activity before the current illness, exacerbation or injury. 10-Not Attempted due to Environmental Limitations-(lack of equipment, weather restraints, etc.). 88-Not Attempted due to Medical Conditions or Safety Concerns. Roll Left to Right (QC): 2 Sit to Lying (QC): 1 Sit to Stand (QC): 2 Chair/Kcx-fe-Numyg Xfer(QC): 2 Car Transfer (QC): 1 Gait Training Does the Patient Walk?: No and Walking Goal NOT indicated Walk 10 feet (QC): 88 Walk 50 ft with 2 Turns(QC): 88 Walk 150 ft (QC): 88 Walking 10ft/uneven surface-QC: 88 Wheelchair Training Does the Pt Use a Wheelchair?: Yes Distance: 150'x2 Wheel 50 ft with 2 turns (QC): 2 Wheel 150 ft (QC): 2 Type of Wheelchair: Manual Stair Training 1 Step (curb) (QC): 88 4 Steps (QC): 88 12 Steps (QC): 88 Balance Picking up an Object (QC): 88 ADL-Treatment Eating (QC): 88 Oral Hygiene (QC): 5 (Set up required then pt is able to complete oral hygiene by self.) Bathing Location: L Arm, R Arm, L Upper Leg, R Upper Leg, Chest, Abdomen, Britany anup Area Shower/Bathe Self (QC): 2 Upper Body Dressing (QC): 3 (Mod A with verbal cues.) Lower Body Dressing (QC): 1 On/Off Footwear (QC): 2 (Max A) Toileting Hygiene (QC): 1 Toilet Transfer (QC): 1 Assessment/Plan Assessment and Plan Assess & Plan/Chief Complaint Assessment: CVA Left sided weakness Left sided neglect PEG tube status Dysphagia Aspiration hx with PNA CAD AF Coumadin treatment GIB 09/14/19 Plan: IRF protocol ST to work on dysphagia TF to be maintained Coumadin treatment Cardiology evaluation 09/13/19: Continue aggressive treatment Barium Swallow Monitor Hemoglobin 09/14/19: Give gentle IV fluids Increase INR with Coumadin with Lovenox bridge Barium swallow today 09/15/2019: Monitor GI bleed Hold Coumadin and Lovenox and aspirin Hold tube feedings Consult general surgery for endoscopies Maintain n.p.o. status due to aspiration risk 09/16/19: Monitor Hgb NPO Aspiration risk TF gently 09/17/19: No major changes Sleeping most of the time Stay off blood thinners due to second GI bleed 09/18/19: Insomnia treatment Continue aggressive physical therapy 09/19/19: Disposition will be discussed in team conference Tube feedings are tolerated well No more bloody stools Scrotum seems to be bleeding at times 09/19/19: Continue tube feedings of 1 can every 3 hours Sleeps most of the time No more bloody stools Aspirin was restarted Two GI bleeds in less than 2 weeks precludes restarting Coumadin 09/21/19: No more bloody stools Bowels are now light brown Coccyx has alevan to help heal 09/22/19: TF working well when using 1 can at a time No pain reported Continue therapy 09/23/19: Maintain TF for now 1 can at at time Fall risk IRF protocol 09/24/19: Monitor orthostasis Monitor hemoglobin Appreciate Dietary input 09/25/19: Replace ROLANDO hose to limit orthostasis Increasing PEG tube fluid Noted bowel and bladder dysfunction today 09/26/19: TF to continue Increase therapy Monitor for pain and falls 09/27/19: TF continues and doing well No pain reported Fall risk 09/28/19: Needs NHP Monitor Lovenox complications 09/29/19: No bloody stools TF tolerated Needs NH 09/30/19: SNF admit TF maintained 10/01/19: Monitor coughing Labs stable Continue tube feedings [facility] facility at discharge 10/02/19: halfway placement required Insomnia treatment the best we can 10/03/19: Keep bed at 45 degree angle to decrease aspiration Disposition of family next week (1) CVA (cerebral vascular accident) (2) Atrial fibrillation with normal ventricular rate (3) CAD (coronary artery disease) (4) Stented coronary artery (5) Dysphagia (6) Left-sided weakness (7) At risk for aspiration (8) PEG (percutaneous endoscopic gastrostomy) status (9) On warfarin therapy (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
[2019-10-03] MEDS: polyethylene glycoL POWDER 17 GM (MIRALAX) PACK PO SCH ×2 (09:00→20:31)
--- NOTE | 2019-10-03 10:45 | Speech Therapy Daily Note ---
Speech Daily Progress Note Subjective Date Seen by Provider: Oct 03, 2019 Time Seen by Provider: 00:30 Patient was up in bed receiving his PEG tube feeding and meds when I entered his room. Objective Patient answered questions and followed one step directions with 90% given min to mod verbal and/or visual cues. Assessment Assessment Current Status: Fair Progress Treatment Plan Continue Plan of Care Speech Short Term Goals Short Term Goals Short Term Goals 1) Patient will complete expressive language exercises at 90% or greater with minimal cues. 2) Patient will complete OME x10 with 90% or greater with minimal cues. 3) Patient will complete oral trials with 90% or greater without s/s of aspiration. Speech Contact Center Consultant Goals Contact Center Consultant Goals Patient will improve speech production for effective communication of his wants/needs. Patient will maintain adequate nutrition/hydration via PEG and/or oral intake. Speech-Plan Patient/Family Goals Patient/Family Goals: Patient is scheduled to discharge to the SNF on Tuesday. Treatment Plan Speech Therapy Treatment Plan: Continue Plan of Care Treatment Duration: Oct 05, 2019 Frequency: 4 times per week (Patient will receive skilled ST 4-5x per week) Estimated Hrs Per Day: .5 hour per day Rehab Potential: Poor Barriers to Learning: Patient's affects from his CVA Pt/Family Agrees to Plan: Yes Safety Risks/Education Teaching Recipient: Patient Teaching Methods: Demonstration, Discussion Response to Teaching: Verbalize Understanding, Return Demonstration, Reinforcement Needed Education Topics Provided: Continued safety within his room Time Speech Therapy Time In: 08:30 Speech Therapy Time Out: 09:00 Total Billed Time: 30 Billed Treatment Time 1, EARNEST Hu Oct 03, 2019 10:45
--- NOTE | 2019-10-03 10:54 | Occupational Ther Daily Note ---
OT Current Status-Daily Note Subjective Pt asleep, in bed. Woke up when name was called. Agreed to OT. No c/o of pain reported. Mental Status/Objective Patient Orientation: Person ADL-Treatment Co-treat with PT 9:45-11:00, skills of 2 clinicians required instruction/care for neuromuscular training for mobility, transfers, ADLs. PT working on transfers, sitting balance and standing for ADL tasks. OT working on ADLs, fun ctional sitting and standing. Pt agreed to shower. Pt supine to EOB with assist x2 due to pt leaning to left side. Max Assist x2 for transfer, one person for SPT and one person to guide pt to sitting. Pt taken to shower room. Once in shower room, pt sit-stand assist x2 to doff brief and switch out w/c with rolling shower chair with cutout. Pt doffed shirt, pt able to pull head out, assist to thread L arm out of shirt. With verbal cues and 30 sec delayed response, pt able to wash hair, L arm, chest, abdomen, L and R upper leg. Assist to wash R arm, L and R lower legs, jean-pierre, and buttocks. Pt required CGA initially and verbal cues for positioning in chair progressed to max A due to fatigue. Assist to rinse and dry. Pt sit-stand with assist x2 to switch to w/c. Pt donned shirt, assist to thread L and R arm, pt able to pull down over head, max A. Assist to thread feet and legs into briefs and pants. Pt then stated he needs to go the bathroom. Pt then taken back to room. Assist x2 for transfer, one person for SPT and one person to guide pt to sitting on commode. Small BM on commode. Max assist x2 for SPT from commode to EOB. Min assist from EOB to supine. Assist for cleansing after toileting. Pt was lying in bed, call/light phone in reach. All needs met. Therapy Code Descriptions/Definitions Functional [place] Measure: 0=Not Assessed/NA 4=Minimal Assistance 1=Total Assistance 5=Supervision or Setup 2=Maximal Assistance 6=Modified [place] 3=Moderate Assistance 7=Complete IndependenceSCALE: Activities may be completed with or without assistive devices. 1-Tptbwnotau-kzixrap completes the activity by him/herself with no assistance from a helper. 5-Set-up or Clean-up Assistance-helper sets up or cleans up; patient completes activity. [place] assists only prior to or following the activity. 4-Supervision or Touching Assistance-helper provides verbal cues and/or touching/steadying and/or contact guard assistance as patient completes activity. Assistance may be provided throughout the activity or intermittently. 3-Partial/Moderate Assistance-helper does LESS THAN HALF the effort. [place] lifts, holds or supports trunk or limbs, but provides less than half the effort. 2-Substantial/Maximal Assistance-helper does MORE THAN HALF the effort. [place] lifts or holds trunk or limbs and provides more than half the effort. 3-Zlumpvlez-rdippw does ALL the effort. Patient does none of the effort to complete the activity. Or, the assistance of 2 or more helpers is required for the patient to complete the activity. If activity was not attempted, code reason: 7-Patient Refused. 9-Not Applicable-not attempted and the patient did not perform the activity before the current illness, exacerbation or injury. 10-Not Attempted due to Environmental Limitations-(lack of equipment, weather restraints, etc.). 88-Not Attempted due to Medical Conditions or Safety Concerns. Bathing Location: L Arm, L Upper Leg, R Upper Leg, Chest, Abdomen Shower/Bathe Self (QC): 1 Upper Body Dressing (QC): 2 Lower Body Dressing (QC): 1 On/Off Footwear: 2 Toileting Hygiene (QC): 1 Toilet Transfer (QC): 1 Education OT Patient Education: Modified ADL techniques, Safety issues, Transfer techniques Teaching Recipient: Patient Teaching Methods: Demonstration, Discussion Response to Teaching: Verbalize Understanding, Return Demonstration, Reinforcement Needed OT Short Term Goals Short Term Goals Time Frame: Sep 19, 2019 Shower/bathe self: 2 Upper body dressin Lower body dressin OT Retirement Goals Full Service Supervisor Goals Time Frame: Oct 03, 2019 Eating (QC): 4 Oral Hygiene (QC): 4 Toileting Hygiene (QC): 3 Shower/Bathe Self (QC): 3 Upper Body Dressing (QC): 3 Lower Body Dressing (QC): 2 On/Off Footwear (QC): 2 Additional Goals: 1-Demonstrate ADL Tasks, 2-Verbalize Understanding, 3- ImproveStrength/Aliyah 1=Demonstrate adherence to instructed precautions during ADL tasks. 2=Patient will verbalize/demonstrate understanding of assistive devices/modifications for ADL. 3=Patient will improve strength/tolerance for activity to enable patient to perform ADL's. OT Education/Plan Problem List/Assessment Assessment: Decreased Activ Tolerance, Decreased Safety Aware, Decreased UE Strength, Dependent Transfers, Impaired Bed Mobility, Impaired Cognition, Impaired Coordination, Impaired Funct Balance, Impaired I ADL's, Impaired Self- Care Skills, Restricted Funct UE ROM, Visual-Perceptual Deficit Discharge Recommendations Plan/Recommendations: Continue POC Treatment Plan/Plan of Care Patient would benefit from OT for education, treatment and training to promote independence in ADL's, mobility, safety and/or upper extremity function for ADL's. Plan of Care: ADL Retraining, Caregiver Training, Functional Mobility, Group Exercise/Act as Ind, Orthotic Fitting/Training, UE Funct Exercise/Act, UE Neuromus Re-Ed/Coord, Visual/Perceptual Retrain, W/C Management Training Treatment Duration: Oct 03, 2019 Frequency: At least 5 of 7 days/Wk (IRF) Estimated Hrs Per Day: 1.5 hours per day Agreement: Yes Rehab Potential: Poor Time/GCodes Start Time: 09:45 Stop Time: 11:00 Total Time Billed (hr/min): 75 Billed Treatment Time 1 visit-ADL 5 (75 min) co-treat with PT 75 min ([id number]) CALLIE LARIOS Oct 03, 2019 10:54
--- NOTE | 2019-10-03 11:36 | Physical Therapy Daily Note ---
PT Daily Note-Current Subjective Pt laying in bed upon arrival. Pt agrees to PT/OT co-treat. Pain Location: No Pain Reported Mental Status Patient Orientation: Person Transfers SCALE: Activities may be completed with or without assistive devices. 5-Eydjzrdanw-mvpzrra completes the activity by him/herself with no assistance from a helper. 5-Set-up or Clean-up Assistance-helper sets up or cleans up; patient completes activity. [place] assists only prior to or following the activity. 4-Supervision or Touching Assistance-helper provides verbal cues and/or touching/steadying and/or contact guard assistance as patient completes activity. Assistance may be provided throughout the activity or intermittently. 3-Partial/Moderate Assistance-helper does LESS THAN HALF the effort. [place] lifts, holds or supports trunk or limbs, but provides less than half the effort. 2-Substantial/Maximal Assistance-helper does MORE THAN HALF the effort. [place] lifts or holds trunk or limbs and provides more than half the effort. 1-Epipwwftx-avpbzw does ALL the effort. Patient does none of the effort to complete the activity. Or, the assistance of 2 or more helpers is required for the patient to complete the activity. If activity was not attempted, code reason: 7-Patient Refused. 9-Not Applicable-not attempted and the patient did not perform the activity before the current illness, exacerbation or injury. 10-Not Attempted due to Environmental Limitations-(lack of equipment, weather restraints, etc.). 88-Not Attempted due to Medical Conditions or Safety Concerns. Roll Left & Right (QC): 2 Sit to Lying (QC): 2 Lying to Sitting/Side of Bed(Q: 2 Sit to Stand (QC): 2 Chair/Wns-ku-Hwten Xfer(QC): 2 Toilet Transfer (QC): 2 Weight Bearing Full Weight Bearing Full Weight Bearing Wheelchair Training Does the Pt Use a Wheelchair?: Yes Wheel 50 ft with 2 turns (QC): 2 Wheel 150 ft (QC): 2 Type of Wheelchair: Manual Treatments Co-treat with PT 9:45-11:00, skills of 2 clinicians required instruction/care for neuromuscular training for mobility, transfers, ADLs. PT working on transfers, sitting balance and standing for ADL tasks. OT working on ADLs, functional sitting and standing. Pt agreed to shower. Pt supine to EOB with assist x2 due to pt leaning to left side. Max Assist x2 for transfer, one person for SPT and one person to guide pt to sitting. Pt taken to shower room. Once in shower room, pt sit-stand assist x2 to doff brief and switch out w/c with rolling shower chair with cutout. Pt doffed shirt, pt able to pull head out, assist to thread L arm out of shirt. With verbal cues and 30 sec delayed response, pt able to wash hair, L arm, chest, abdomen, L and R upper leg. Assist to wash R arm, L and R lower legs, jean-pierre, and buttocks. Pt required CGA initially and verbal cues for positioning in chair progressed to max A due to fatigue. Assist to rinse and dry. Pt sit-stand with assist x2 to switch to w/c. Pt donned shirt, assist to thread L and R arm, pt able to pull down over head, max A. Assist to thread feet and legs into briefs and pants. Pt then stated he needs to go the bathroom. Pt then taken back to room. Assist x2 for transfer, one person for SPT and one person to guide pt to sitting on commode. Small BM on commode. Max assist x2 for SPT from commode to EOB. Min assist from EOB to supine. Assist for cleansing after toileting. Pt was lying in bed, call/light phone in reach. All needs met. Assessment Current Status: Fair Progress Pt leaned heavily toward L side during tx. Pt could sit back but would eventually lean forward and L side again. Pt's BP is taken after toileting (130/68). PT Short Term Goals Short Term Goals Time Frame: Sep 19, 2019 Roll Left & Right: 2 Sit to lyin Lying to sitting on side of be: 2 Sit to stand: 2 Chair/rqi-ag-eetkk transfer: 2 Wheel 50ft w/2 turns: 2 Wheel 150 feet: 2 PT Group Home Goals Group Home Goals PT Group Home Goals Time Frame: Oct 03, 2019 Roll Left & Right (QC): 3 Sit to Lying (QC): 3 Lying-Sitting on Side/Bed(QC): 3 Sit to Stand (QC): 3 Chair/Tui-ee-Zpcha Xfer(QC): 3 Toilet Transfer (QC): 3 Car Transfer (QC): 3 Does the Patient Walk: No and Walking Goal NOT indicated Walk 10 feet (QC): 88 Walk 50ft with 2 Turns (QC): 88 Walk 150 ft (QC): 88 Walking 10ft on Uneven Surface: 88 1 Step (curb) (QC): 88 4 Steps (QC): 88 12 Steps (QC): 88 Picking up an Object (QC): 88 Wheel 50 feet with 2 turns (QC: 3 Wheel 150 feet: 3 PT Plan Problem List Problem List: Activity Tolerance, Functional Strength, Safety, Balance, Transfer Treatment/Plan Treatment Plan: Continue Plan of Care Treatment Plan: Bed Mobility, Education, Functional Activity Aliyah, Functional Strength, Group Therapy, Gait, Safety, Therapeutic Exercise, Transfers Treatment Duration: Oct 03, 2019 Frequency: At least 5 of 7 days/Wk (IRF) Estimated Hrs Per Day: 1.5 hours per day Patient and/or Family Agrees t: Yes Safety Risks/Education Patient Education: Transfer Techniques, Correct Positioning, Safety Issues Teaching Recipient: Patient Teaching Methods: Discussion Response to Teaching: Reinforcement Needed Time/GCodes Time In: 945 Time Out: 1100 Total Billed Treatment Time: 75 Total Billed Treatment 1, FA x5 (75m) Co-treat w/OT for 75m COBYANTHONY LIAO INSEAMER Oct 03, 2019 11:36
--- NOTE | 2019-10-03 12:01 | Occ Therapy Rehab Re-Cert ---
OT Re-Certification Form Plan of Care: ADL Retraining, Caregiver Training, Functional Mobility, Group Exercise/Act as Ind, Orthotic Fitting/Training, UE Funct Exercise/Act, UE Neuromus Re-Ed/Coord, Visual/Perceptual Retrain, W/C Management Training Update LTGs: Eating (QC): 88 due to feeding tube placement Oral Hygiene (QC): 6 Toileting Hygiene (QC): 2 Shower/Bathe Self (QC): 2 Upper Body Dressing (QC): 3 Lower Body Dressing (QC): 2 On/Off Footwear (QC): 3 Continue 10/03/19-10/17/19 Treatment Duration: 10/17/19 Frequency: At least 5 of 7 days/Wk (IRF) Estimated Hrs Per Day: 1.5 hours per day Agreement: Yes Rehab Potential: Poor OT Short Term Goals Short Term Goals Time Frame: Sep 19, 2019 Shower/bathe self: 2 Upper body dressin Lower body dressin OT Skilled Nursing Goals Tobacco Shaker Goals Time Frame: Oct 03, 2019 Eating (QC): 4 Oral Hygiene (QC): 4 Toileting Hygiene (QC): 3 Shower/Bathe Self (QC): 3 Upper Body Dressing (QC): 3 Lower Body Dressing (QC): 2 On/Off Footwear (QC): 2 Additional Goals: 1-Demonstrate ADL Tasks, 2-Verbalize Understanding, 3- ImproveStrength/Aliyah 1=Demonstrate adherence to instructed precautions during ADL tasks. 2=Patient will verbalize/demonstrate understanding of assistive devices/modifications for ADL. 3=Patient will improve strength/tolerance for activity to enable patient to perform ADL's. TRINI STOVER OTR Oct 03, 2019 12:01
--- NOTE | 2019-10-03 14:37 | Therapy Group Daily Note ---
Therapy Daily Group Note Patient Education Topic Exercises, Other List Below (positioning) Exercises LE Seated Exercise, UE Exercise Session Ratio (pt:therapist): 4:1 Goal of Session: UE/LE Strengthing, Other (list) (positioning) Goal Met for this Session: Yes Pt Benefit of Group: Contributions to Others, F/U Use of Strategies @Home, Increased Functional Safety, Increased Functional Strength, Improved Cognition, Recognition of Peers, Socialization Other/Notes Pt transported using w/c to OT/PT. Group consisted of introductions (name, place living, biggest challenge), socialization, seated UE/LE exercises (theraband UE) and educational topics of benefits of exercise and positioning. Pt introduced self with assistance due to quiet voice and reminders of questions. Pt actively listened to peer introductions. Pt required assistance to complete UE/LE exercises. Pt attentive to educational topics though pt has difficulty with processing information in timely manner to participate in group conversation. After therapy, pt lying in bed with call light/phone in reach. All needs met in room. Start Time: 13:00 Stop Time: 14:00 Total Billed Treatment Time: 60 Total Billed Treatment 1-GRP CALLIE LARIOS Oct 03, 2019 14:37
--- NOTE | 2019-10-03 15:17 | NUR ---
Patient Care Conference Met with patient and his spouse to discuss team conference summary. Patient was non-verbal, but did nod "yes" at times during discussion. Information obtained from patient's spouse. Patient's spouse reports [facility] [place], for equipment needs. She reports they currently do not have any equipment at home and began working with the [facility] to [facility] while the patient was at [facility]; however, the patient admitted to [facility] and no equipment was obtained. Patient's spouse reports, that prior to hospitalization, the patient was independent with functional mobility, including stairs, and ADLs without the use of adaptive equipment. She reports the patient was not "aggressive" at home, but she has noted increased "aggression" during hospitalization. She contributes this to pain, reporting the patient has rheumatoid arthritis, low back pain ("bone on bone") and hip pain, and when the pain is not controlled, he becomes "aggressive." She reports the patient was taking Hydrocodone, 1 tablet in the morning and 1 tablet at night at home. She is also asking about supplementation with vitamin B12 and vitamin B9, based on her own research and the type of surgery her underwent. (Dr. Livingston on the floor to round at 1537 and informed of the Hydrocodone, Vitamin B12 and Vitamin B9-RN obtained orders from Dr. Livingston). Patient's spouse reports she has been trained as caregiver and assisted in her father's care previously. She also reports she has friends who are trained caregivers and who could be available to assist at discharge if needed. Both are agreeable to continued stay with rechecking progress next Tuesday. See patient team conference summary for additional information. Addendum: 10/05/19 at 1107 by TWIN PLUMMER RN Disregard this note, entered on wrong patient.
--- NOTE | 2019-10-03 16:49 | NUR ---
CM/SS CONCURRENT DOCUMENTATION Family education is scheduled for tomorrow at 1100, spouse Oksana and daughter Marisela Garduno along with her David will be here. [employer] has notified [employer], [employer] managers, Jack Prizer to allow 3 visitors. Marisela indicates she and her mother have concluded patient will discharge to her home in [place]. The family education session is in relation to review and demonstration of the level of care required. Will confirm with family after that of their intentions. Marisela has explored DME agencies in her area and provided a long list of options. [employer] will begin to explore those compatible with both patient's [employer] and those that have especially the karson available. Hospital bed, bedside commode, and wheelchair should be less of an issue to obtain regarding stocked items. Followup tomorrow.
[2019-10-03 17:32] VITALS: BP 124/58
[2019-10-03] MEDS: ALPRAZolam 0.25 MG (XANAX) TAB PO PRN (20:29)
[2019-10-03] MEDS: ACETAMINOPHEN 325 MG TABLET PO PRN (20:30)
[2019-10-03] MEDS: ONDANSETRON 4 MG (ZOFRAN) ORAL DISSOLVE TAB PO PRN (20:44)
[2019-10-04 05:12] VITALS: BP 124/73
[2019-10-04] MEDS: LEVOTHYROXINE 75 MCG (LEVOTHROID) TABLET PO SCH (06:06)
[2019-10-04] MEDS: SUCRALFATE 1 GM (CARAFATE) TAB PO SCH ×3 (06:06→17:45)
--- NOTE | 2019-10-04 06:14 | PM&R Progress Note ---
Subjective HPI/CC On Admission Date Seen by Provider: Oct 04, 2019 Time Seen by Provider: 08:00 Subjective/Events-last exam 10/04/19: Family training next week Overall feels like he is doing pretty well Sleepy today No falls 10/03/19: DC to daughter's house next week Working hard during therapy More alert today 10/02/19: Family at the bedside Xanax and Melatonin were given to help him sleep but he didnt sleep well and that is periodic for him No pain is reported Participating in therapy USP placement pending 10/01/19: Pt was coughing a bit but lungs are clear and he wasn't coughing with me Labs good, Hgb 11.7 No rectal bleeding Maintain on Lovenox for DVT prophylaxis 09/30/19: Patient feels ok TF tolerated Checked meds and labs No pain reported 09/29/19: Daughter at the bedside Patient has difficulty communicating No pain reported Needs NHP 09/28/19: Needs to go to [place] No pain reported Slight smear of blood with BM so may not even be able to tolerate Lovenox DVT PPx dose 09/27/19: Went from bed to chair without a Sarah-lift today More alert today Had a BM three days ago so will start laxatives No nausea or vomiting Tolerating tube feedings Lovenox 40 Mg started for DVT prophylaxis He just can't seem to tolerate the therapeutic dose for AFIB because of GI bleeds 09/26/19: Insomnia much improved he slept very well last night Bowels are moving Tube feedings are tolerated since it is only one can at a time No falls Appears to be more motivated today 09/25/19: BP remains a little bit low, will replace ROLANDO hose Bowel and bladder incontinence noted today Peg tub will be utilized for increased fluid intake 09/24/19: Holding Lopressor due to orthostasis during PT today BP 125/70 after orthostasis episode resolved No nausea or vomiting Regular rhythm on exam 09/23/19: Tolerating TF well Lethargic is chronic No pain reported 09/22/19: BM yesterday Tolerating TF well No pain reported 09/21/19: Pt more talkative today No more bloody stools Two bowel movements last night were brown Decubitus ulcer on coccyx being monitored and managed 09/20/19: Pt sleeping most of the time Participating in therapy Tube feedings of one can every three hours is working a lot better for him, he is tolerating it better No more bloody stools Cardiology restarted Aspirin but Coumadin will continue to be held because he has had two GI bleeds in the past two weeks and cant withstand a colonoscopy prep Very complex case 09/19/19: Pt sleeps most of the time Will discuss disposition, I doubt any recovery potential Overall needs probably a shelter for long-term care 09/18/19: Insomnia is an issue Worked with PT today but seems to take a lot of naps during the day which disrupts the nighttime sleeping No pain is reported 09/17/19: Pt sleeps most of the time No major changes No bloody stools Off of Lovenox, Coumadin and Aspirin Second GI bleed in the last few weeks 09/16/19: No bloody stools today Hgb stable 10.3 Is not strong enough to undergo C-scope prep Dr Flores saw him this morning Holding ASA Lovenox Coumadin Had GI at [place] also Decreased cognition 09/15/19: Patient had been doing pretty well when I rounded No more nausea and vomiting like yesterday Tube feeding was restarted slowly I stopped the Clinimix since tube feedings were started N.p.o. 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 Flores general surgery was consulted and checked hemoglobin and hematocrit. 09/14/19: Had nausea and vomiting all last night Needs IV fluids gently so we'll start that today Urinary incontinence noted No fecal incontinence Holding tube feedings for right now Barium swallow today at 11:30 INR 1.4 will increase dose and provide Lovenox 09/13/19: Patient doing pretty well today Sleeping currently Therapy worked with him today Modified Barium Swallow scheduled Hemoglobin 9.6 Disoriented at times Bowels moved yesterday Conferred with RN Reviewed Therapy notes Checked Meds and Labs Review of Systems General: Fatigue, Malaise Neurological: Weakness Objective Exam Vital Signs Vital Signs Date Time Temp Pulse Resp B/P (MAP) Pulse Ox O2 Delivery O2 Flow Rate FiO2 10/04/19 22:53 Room Air 10/04/19 18:33 36.8 83 18 137/79 (98) 97 Capillary Refill : Less Than 3 SecondsLess Than 3 Seconds General Appearance: No Apparent Distress, WD/WN, Chronically ill HEENT: PERRL/EOMI, Normal ENT Inspection, Pharynx Normal Neck: Full Range of Motion, Normal Inspection, Non Tender, Supple, Carotid Bruit Respiratory: Chest Non Tender, Lungs Clear, Normal Breath Sounds, No Accessory Muscle Use, No Respiratory Distress Cardiovascular: No Edema, No Gallop, No JVD, No Murmur, Normal Peripheral Pulses, Irregularly Irregular Gastrointestinal: Normal Bowel Sounds, No Organomegaly, No Pulsatile Mass, Non Tender, Soft Back: Normal Inspection, No CVA Tenderness, No Vertebral Tenderness Extremity: Normal Capillary Refill, Normal Inspection, Normal Range of Motion, Non Tender, No Calf Tenderness, Pedal Edema Neurologic/Psychiatric: Alert, Oriented x3, Normal Mood/Affect, review analyst II-XII Norm as Tested, Aphasia, Facial Droop, Motor Weakness Skin: Normal Color, Warm/Dry Lymphatic: No Adenopathy Results/Procedures Lab Patient resulted labs reviewed. FIM Transfers Therapy Code Descriptions/Definitions Functional [place] Measure: 0=Not Assessed/NA 4=Minimal Assistance 1=Total Assistance 5=Supervision or Setup 2=Maximal Assistance 6=Modified [place] 3=Moderate Assistance 7=Complete IndependenceSCALE: Activities may be completed with or without assistive devices. 1-Cwdngtuqdd-psflzpw completes the activity by him/herself with no assistance from a helper. 5-Set-up or Clean-up Assistance-helper sets up or cleans up; patient completes activity. [place] assists only prior to or following the activity. 4-Supervision or Touching Assistance-helper provides verbal cues and/or touching/steadying and/or contact guard assistance as patient completes activity. Assistance may be provided throughout the activity or intermittently. 3-Partial/Moderate Assistance-helper does LESS THAN HALF the effort. [place] lifts, holds or supports trunk or limbs, but provides less than half the effort. 2-Substantial/Maximal Assistance-helper does MORE THAN HALF the effort. [place] lifts or holds trunk or limbs and provides more than half the effort. 9-Hysqilwva-atcxgr does ALL the effort. Patient does none of the effort to complete the activity. Or, the assistance of 2 or more helpers is required for the patient to complete the activity. If activity was not attempted, code reason: 7-Patient Refused. 9-Not Applicable-not attempted and the patient did not perform the activity before the current illness, exacerbation or injury. 10-Not Attempted due to Environmental Limitations-(lack of equipment, weather restraints, etc.). 88-Not Attempted due to Medical Conditions or Safety Concerns. Roll Left to Right (QC): 2 Sit to Lying (QC): 2 Sit to Stand (QC): 2 Chair/Zgn-wa-Bxopm Xfer(QC): 2 Car Transfer (QC): 1 Gait Training Does the Patient Walk?: No and Walking Goal NOT indicated Walk 10 feet (QC): 88 Walk 50 ft with 2 Turns(QC): 88 Walk 150 ft (QC): 88 Walking 10ft/uneven surface-QC: 88 Wheelchair Training Does the Pt Use a Wheelchair?: Yes Distance: 150'x2 Wheel 50 ft with 2 turns (QC): 2 Wheel 150 ft (QC): 2 Type of Wheelchair: Manual Stair Training 1 Step (curb) (QC): 88 4 Steps (QC): 88 12 Steps (QC): 88 Balance Picking up an Object (QC): 88 ADL-Treatment Eating (QC): 88 Oral Hygiene (QC): 5 (Set up required then pt is able to complete oral hygiene by self.) Bathing Location: L Arm, L Upper Leg, R Upper Leg, Chest, Abdomen Shower/Bathe Self (QC): 1 Upper Body Dressing (QC): 2 Lower Body Dressing (QC): 1 On/Off Footwear (QC): 2 Toileting Hygiene (QC): 1 Toilet Transfer (QC): 1 Assessment/Plan Assessment and Plan Assess & Plan/Chief Complaint Assessment: CVA Left sided weakness Left sided neglect PEG tube status Dysphagia Aspiration hx with PNA CAD AF Coumadin treatment GIB 09/14/19 Plan: IRF protocol ST to work on dysphagia TF to be maintained Coumadin treatment Cardiology evaluation 09/13/19: Continue aggressive treatment Barium Swallow Monitor Hemoglobin 09/14/19: Give gentle IV fluids Increase INR with Coumadin with Lovenox bridge Barium swallow today 09/15/2019: Monitor GI bleed Hold Coumadin and Lovenox and aspirin Hold tube feedings Consult general surgery for endoscopies Maintain n.p.o. status due to aspiration risk 09/16/19: Monitor Hgb NPO Aspiration risk TF gently 09/17/19: No major changes Sleeping most of the time Stay off blood thinners due to second GI bleed 09/18/19: Insomnia treatment Continue aggressive physical therapy 09/19/19: Disposition will be discussed in team conference Tube feedings are tolerated well No more bloody stools Scrotum seems to be bleeding at times 09/19/19: Continue tube feedings of 1 can every 3 hours Sleeps most of the time No more bloody stools Aspirin was restarted Two GI bleeds in less than 2 weeks precludes restarting Coumadin 09/21/19: No more bloody stools Bowels are now light brown Coccyx has alevan to help heal 09/22/19: TF working well when using 1 can at a time No pain reported Continue therapy 09/23/19: Maintain TF for now 1 can at at time Fall risk IRF protocol 09/24/19: Monitor orthostasis Monitor hemoglobin Appreciate Dietary input 09/25/19: Replace ROLANDO hose to limit orthostasis Increasing PEG tube fluid Noted bowel and bladder dysfunction today 09/26/19: TF to continue Increase therapy Monitor for pain and falls 09/27/19: TF continues and doing well No pain reported Fall risk 09/28/19: Needs NHP Monitor Lovenox complications 09/29/19: No bloody stools TF tolerated Needs NH 09/30/19: SNF admit TF maintained 10/01/19: Monitor coughing Labs stable Continue tube feedings intermediate facility at discharge 10/02/19: USP placement required Insomnia treatment the best we can 10/03/19: Keep bed at 45 degree angle to decrease aspiration Disposition of family next week 10/04/19: Family education training Discharge with daughter next week (1) CVA (cerebral vascular accident) (2) Atrial fibrillation with normal ventricular rate (3) CAD (coronary artery disease) (4) Stented coronary artery (5) Dysphagia (6) Left-sided weakness (7) At risk for aspiration (8) PEG (percutaneous endoscopic gastrostomy) status (9) On warfarin therapy (10) Left-sided neglect (11) Facial droop KENZIE MORENO DO Oct 04, 2019 06:14
[2019-10-04] MEDS: LACTOBACILLUS ACIDOPHILUS (PROBIOTIC) CAPSULE PEG SCH ×2 (08:20→21:31)
[2019-10-04] MEDS: ENOXAPARIN 40 MG/0.4 ML (LOVENOX) SYR SC SCH (08:20)
[2019-10-04] MEDS: PANTOPRAZOLE 2 MG/ML LIQUID 200 ML (PROTONIX) PEG SCH ×6 (08:20→21:45)
[2019-10-04] MEDS: ASPIRIN 81 MG CHEW (CHILDREN'S ASA) PO SCH (08:20)
[2019-10-04] MEDS: DOCUSATE SODIUM 100 MG (COLACE) CAP PO SCH ×2 (09:34→21:45)
[2019-10-04] MEDS: polyethylene glycoL POWDER 17 GM (MIRALAX) PACK PO SCH ×2 (09:34→21:45)
[2019-10-04] MEDS: SENNA W/DOCUSATE (SENOKOT S) TABLET PO SCH ×2 (09:35→21:45)
--- NOTE | 2019-10-04 10:11 | Speech Therapy Daily Note ---
Speech Daily Progress Note Subjective Date Seen by Provider: Oct 04, 2019 Time Seen by Provider: 00:30 Patient resting in bed following repositioning. Patient alert and participated well with decreased cues needed. Objective Patient answered questions related to recall of information presented orally with 75% given min to mod cues. Assessment Assessment Current Status: Fair Progress Treatment Plan Continue Plan of Care Speech Short Term Goals Short Term Goals Short Term Goals 1) Patient will complete expressive language exercises at 90% or greater with minimal cues. 2) Patient will complete OME x10 with 90% or greater with minimal cues. 3) Patient will complete oral trials with 90% or greater without s/s of aspiration. Speech Safety Fire Boss Goals Mcc Goals Patient will improve speech production for effective communication of his wants/needs. Patient will maintain adequate nutrition/hydration via PEG and/or oral intake. Speech-Plan Patient/Family Goals Patient/Family Goals: Patient is scheduled to return home with family support and home health next week. Treatment Plan Speech Therapy Treatment Plan: Continue Plan of Care Treatment Duration: Oct 10, 2019 Frequency: 4 times per week (Patient will receive skilled ST 4-5x per week) Estimated Hrs Per Day: .5 hour per day Rehab Potential: Poor Barriers to Learning: Patient's affects from his recent CVA Pt/Family Agrees to Plan: Yes Safety Risks/Education Teaching Recipient: Patient Teaching Methods: Demonstration, Discussion Response to Teaching: Verbalize Understanding, Return Demonstration Education Topics Provided: Continued communication of wants/needs Time Speech Therapy Time In: 08:00 Speech Therapy Time Out: 08:30 Total Billed Time: 30 Billed Treatment Time 1, EARNEST Hu Oct 04, 2019 10:10
--- NOTE | 2019-10-04 11:55 | Occupational Ther Daily Note ---
OT Current Status-Daily Note Subjective Pt alert, lying in bed. Pt agreed to OT. No c/o of pain reported. in room. Family training/education completed during therapy session. Pt would answer questions by shaking head "yes or no", verbal cues from to use his voice. Mental Status/Objective Patient Orientation: Person, Place, Time, Situation Attachments: PEG Tube ADL-Treatment Pt incontinent of bowel/bladder. Pt is able to roll with min A toward L side, mod to max A to R side. Assist x2 to stay onto sides to be able to cleanse buttocks and doff/don briefs. Pt able to lift R LE, mod A to max A to thread socks.Pt supine to EOB with mod assist. Pt doffed shirt using one handed technique, assist to thread L and R arm out, pt able to pull shirt over head. Pt donned shirt, assist to thread L and R arm, pt able to pull down over head. Pt educated on toileting hygiene, rolling on bed, and one handed dressing techniques. Therapy Code Descriptions/Definitions Functional [place] Measure: 0=Not Assessed/NA 4=Minimal Assistance 1=Total Assistance 5=Supervision or Setup 2=Maximal Assistance 6=Modified [place] 3=Moderate Assistance 7=Complete IndependenceSCALE: Activities may be completed with or without assistive devices. 5-Dgdoddzonh-jbpxgju completes the activity by him/herself with no assistance from a helper. 5-Set-up or Clean-up Assistance-helper sets up or cleans up; patient completes activity. [place] assists only prior to or following the activity. 4-Supervision or Touching Assistance-helper provides verbal cues and/or touching/steadying and/or contact guard assistance as patient completes activity. Assistance may be provided throughout the activity or intermittently. 3-Partial/Moderate Assistance-helper does LESS THAN HALF the effort. [place] lifts, holds or supports trunk or limbs, but provides less than half the effort. 2-Substantial/Maximal Assistance-helper does MORE THAN HALF the effort. [place] l ifts or holds trunk or limbs and provides more than half the effort. 1-Sbjjgjxyd-gqwlth does ALL the effort. Patient does none of the effort to complete the activity. Or, the assistance of 2 or more helpers is required for the patient to complete the activity. If activity was not attempted, code reason: 7-Patient Refused. 9-Not Applicable-not attempted and the patient did not perform the activity before the current illness, exacerbation or injury. 10-Not Attempted due to Environmental Limitations-(lack of equipment, weather restraints, etc.). 88-Not Attempted due to Medical Conditions or Safety Concerns. Upper Body Dressing (QC): 3 Lower Body Dressing (QC): 1 On/Off Footwear: 2 Toileting Hygiene (QC): 1 Other Treatment Co-treat with PT ([id number]) skills of 2 clinicians required instruction/care for neuromuscular training for mobility, transfers, ADLs. PT working on transfers, sitting balance and standing for ADL tasks. OT working on ADLs, functional sitting and standing. Pt SPT from EOB to w/c with max assist. Pt taken from room to gym. Pt SPT from w/c to EOM, with Max assist. OT and PT educating family on verbal cues and safe transfer techniques. Pt's participated in SPT and she had trouble keeping herself safe. Would benefit with another person to help her. Pt then taken back to room. Family educated on how to safely use karson lift. Pt transferred from supine on bed to recliner using ho melisa lift. Pt sitting at recliner call/light in reach. All needs met. Family still in room. Education OT Patient Education: Correct positioning, Instructions to caregiver, Modified ADL techniques, Safety issues, Transfer techniques Teaching Recipient: Patient, Family Teaching Methods: Demonstration, Discussion Response to Teaching: Verbalize Understanding, Return Demonstration OT Short Term Goals Short Term Goals Time Frame: Sep 19, 2019 Shower/bathe self: 2 Upper body dressin Lower body dressin OT [facility] Goals [facility] Goals Time Frame: Oct 03, 2019 Eating (QC): 4 Oral Hygiene (QC): 4 Toileting Hygiene (QC): 3 Shower/Bathe Self (QC): 3 Upper Body Dressing (QC): 3 Lower Body Dressing (QC): 2 On/Off Footwear (QC): 2 Additional Goals: 1-Demonstrate ADL Tasks, 2-Verbalize Understanding, 3- ImproveStrength/Aliyah 1=Demonstrate adherence to instructed precautions during ADL tasks. 2=Patient will verbalize/demonstrate understanding of assistive devices/rosmery fications for ADL. 3=Patient will improve strength/tolerance for activity to enable patient to perform ADL's. OT Education/Plan Problem List/Assessment Assessment: Decreased Activ Tolerance, Decreased UE Strength, Dependent Transfers, Impaired Bed Mobility, Impaired Cognition, Impaired Coordination, Impaired Funct Balance, Impaired I ADL's, Impaired Self-Care Skills, Restricted Funct UE ROM, Visual-Perceptual Deficit Discharge Recommendations Plan/Recommendations: Continue POC Treatment Plan/Plan of Care Patient would benefit from OT for education, treatment and training to promote independence in ADL's, mobility, safety and/or upper extremity function for A DL's. Plan of Care: ADL Retraining, Caregiver Training, Functional Mobility, Group Exercise/Act as Ind, Orthotic Fitting/Training, UE Funct Exercise/Act, UE Neuromus Re-Ed/Coord, Visual/Perceptual Retrain, W/C Management Training Treatment Duration: Oct 03, 2019 Frequency: At least 5 of 7 days/Wk (IRF) Estimated Hrs Per Day: 1.5 hours per day Agreement: Yes Rehab Potential: Poor Time/GCodes Start Time: 10:45 Stop Time: 12:00 Total Time Billed (hr/min): 75 Billed Treatment Time 1 visit- ADL 1 (15 mins) FA 4(60) Co-treat with PT 60 ([id number]) individual treatment 15 min ([id number]) CALLIE LARIOS Oct 04, 2019 11:55
--- NOTE | 2019-10-04 12:00 | NUR ---
Family teaching provided for tube feedings and medication administration. Family asked appropriate questions, took interest and hands on involvement. Will provide another teaching session at 1500 feeding.
--- NOTE | 2019-10-04 12:41 | Physical Therapy Daily Note ---
PT Daily Note-Current Subjective Patient sitting EOB pre tx, agrees to PT, no complaints of pain, will be co- treating with OT due to poor patient mobility, strength, endurance, poor sitting and standing balance, left hemiparesis, the need to coordinate UE and LE during activity. Patient's family is here for training, his will have hands on training with transfers and bed mobility. Appearance Patient in bed post tx with nurse call, phone, tray, all needs met. Mental Status Patient Orientation: Person, Unable to Assess, Non-Verbal/Aphasic Transfers SCALE: Activities may be completed with or without assistive devices. 2-Lhbibwplgg-juqjygh completes the activity by him/herself with no assistance from a helper. 5-Set-up or Clean-up Assistance-helper sets up or cleans up; patient completes activity. [place] assists only prior to or following the activity. 4-Supervision or Touching Assistance-helper provides verbal cues and/or touching/steadying and/or contact guard assistance as patient completes activity. Assistance may be provided throughout the activity or intermittently. 3-Partial/Moderate Assistance-helper does LESS THAN HALF the effort. [place] lifts, holds or supports trunk or limbs, but provides less than half the effort. 2-Substantial/Maximal Assistance-helper does MORE THAN HALF the effort. [place] lifts or holds trunk or limbs and provides more than half the effort. 6-Upepuuvif-kbcrid does ALL the effort. Patient does none of the effort to complete the activity. Or, the assistance of 2 or more helpers is required for the patient to complete the activity. If activity was not attempted, code reason: 7-Patient Refused. 9-Not Applicable-not attempted and the patient did not perform the activity before the current illness, exacerbation or injury. 10-Not Attempted due to Environmental Limitations-(lack of equipment, weather restraints, etc.). 88-Not Attempted due to Medical Conditions or Safety Concerns. Roll Left & Right (QC): 3 Sit to Lying (QC): 3 Lying to Sitting/Side of Bed(Q: 3 Sit to Stand (QC): 2 Chair/Okv-ep-Htidu Xfer(QC): 2 Family educated on rolling, supine <-> sit, stand pivot transfer and the use of a karson for transfers. His participated in all this. She has a lot of trouble with stand pivot transfers and would be safer with another person to h elp her. Family educated on scooting patient up in bed and on positioning and safety before transfers. Family also educated on WC mobility. Weight Bearing Full Weight Bearing Full Weight Bearing Treatments PT performed bed mobility, transfers, WC mobility, sitting balance and positioning, family training, OT performed family training and assisted with transfers and bed mobility. Assessment Current Status: Fair Progress Patient's family was very receptive to education, good with problem solving, however his had a lot of trouble with stand pivot transfers, she may have to resort to using the karson at home for transfers. PT Short Term Goals Short Term Goals Time Frame: Sep 19, 2019 Roll Left & Right: 2 Sit to lyin Lying to sitting on side of be: 2 Sit to stand: 2 Chair/ohw-tv-gwqnk transfer: 2 Wheel 50ft w/2 turns: 2 Wheel 150 feet: 2 PT [facility] Goals Dance Costume Designer Goals PT [facility] Goals Time Frame: Oct 03, 2019 Roll Left & Right (QC): 3 Sit to Lying (QC): 3 Lying-Sitting on Side/Bed(QC): 3 Sit to Stand (QC): 3 Chair/Fpm-oi-Fuerb Xfer(QC): 3 Toilet Transfer (QC): 3 Car Transfer (QC): 3 Does the Patient Walk: No and Walking Goal NOT indicated Walk 10 feet (QC): 88 Walk 50ft with 2 Turns (QC): 88 Walk 150 ft (QC): 88 Walking 10ft on Uneven Surface: 88 1 Step (curb) (QC): 88 4 Steps (QC): 88 12 Steps (QC): 88 Picking up an Object (QC): 88 Wheel 50 feet with 2 turns (QC: 3 Wheel 150 feet: 3 PT Plan Problem List Problem List: Activity Tolerance, Functional Strength, Safety, Balance, Gait, Transfer, Bed Mobility, ROM Treatment/Plan Treatment Plan: Continue Plan of Care Treatment Plan: Bed Mobility, Education, Functional Activity Aliyah, Functional Strength, Group Therapy, Gait, Safety, Therapeutic Exercise, Transfers Treatment Duration: Oct 03, 2019 Frequency: At least 5 of 7 days/Wk (IRF) Estimated Hrs Per Day: 1.5 hours per day Patient and/or Family Agrees t: Yes Safety Risks/Education Patient Education: Transfer Techniques, Correct Positioning, W/C Management, S afety Issues Teaching Recipient: Patient Teaching Methods: Demonstration, Discussion Response to Teaching: Reinforcement Needed Time/GCodes Time In: 1100 Time Out: 1200 Total Billed Treatment Time: 60 Total Billed Treatment 1 visit FA 60' co-treated for 60' RUY MCGRATH PT Oct 04, 2019 12:41
--- NOTE | 2019-10-04 13:26 | Physical Therapy Daily Note ---
PT Daily Note-Current Subjective Pt presents slouched to more of supine than seated position in recliner with leg rest. Pt consents to therapy and reports no pain. Appearance Post PT treatment pt is adjusted in recliner to reduce slouching. Pt has access to nurse call and all needs have been met. Mental Status Patient Orientation: Person, Situation, [place] Transfers SCALE: Activities may be completed with or without assistive devices. 9-Fieheqhkyw-tpphsoi completes the activity by him/herself with no assistance from a helper. 5-Set-up or Clean-up Assistance-helper sets up or cleans up; patient completes activity. [place] assists only prior to or following the activity. 4-Supervision or Touching Assistance-helper provides verbal cues and/or touching/steadying and/or contact guard assistance as patient completes activity. Assistance may be provided throughout the activity or intermittently. 3-Partial/Moderate Assistance-helper does LESS THAN HALF the effort. [place] lifts, holds or supports trunk or limbs, but provides less than half the effort. 2-Substantial/Maximal Assistance-helper does MORE THAN HALF the effort. [place] lifts or holds trunk or limbs and provides more than half the effort. 3-Zlekfeyib-txdfxt does ALL the effort. Patient does none of the effort to complete the activity. Or, the assistance of 2 or more helpers is required for the patient to complete the activity. If activity was not attempted, code reason: 7-Patient Refused. 9-Not Applicable-not attempted and the patient did not perform the activity before the current illness, exacerbation or injury. 10-Not Attempted due to Environmental Limitations-(lack of equipment, weather restraints, etc.). 88-Not Attempted due to Medical Conditions or Safety Concerns. Weight Bearing Full Weight Bearing Full Weight Bearing Exercises Supine Ex: Ankle pumps (pt requires consistent cueing to fully point toes), Heel Slides, Straight leg raise (Pt unable to maintain straight knee) Supine Reps: 20 Seated Therapy Exercises: Long arc quads Seated Reps: 20 Treatments Pt complete exercises for R LE and PROM for L LE Assessment Current Status: Poor Progress Pt struggled with following exercise instruction despite demonstration and constant cueing. Pt compensates all motions by completing simultaneous hip and knee flexion. PT Short Term Goals Short Term Goals Time Frame: Sep 19, 2019 Roll Left & Right: 2 Sit to lyin Lying to sitting on side of be: 2 Sit to stand: 2 Chair/lpg-by-nurkb transfer: 2 Wheel 50ft w/2 turns: 2 Wheel 150 feet: 2 PT [facility] Goals Director [employer] Goals PT Director [employer] Goals Time Frame: Oct 03, 2019 Roll Left & Right (QC): 3 Sit to Lying (QC): 3 Lying-Sitting on Side/Bed(QC): 3 Sit to Stand (QC): 3 Chair/Dvz-tv-Zbdmf Xfer(QC): 3 Toilet Transfer (QC): 3 Car Transfer (QC): 3 Does the Patient Walk: No and Walking Goal NOT indicated Walk 10 feet (QC): 88 Walk 50ft with 2 Turns (QC): 88 Walk 150 ft (QC): 88 Walking 10ft on Uneven Surface: 88 1 Step (curb) (QC): 88 4 Steps (QC): 88 12 Steps (QC): 88 Picking up an Object (QC): 88 Wheel 50 feet with 2 turns (QC: 3 Wheel 150 feet: 3 PT Plan Problem List Problem List: Activity Tolerance, Functional Strength, Safety, Balance, Gait, Transfer, Bed Mobility, ROM Treatment/Plan Treatment Plan: Continue Plan of Care Treatment Plan: Bed Mobility, Education, Functional Activity Aliyah, Functional Strength, Group Therapy, Gait, Safety, Therapeutic Exercise, Transfers Treatment Duration: Oct 03, 2019 Frequency: At least 5 of 7 days/Wk (IRF) Estimated Hrs Per Day: 1.5 hours per day Patient and/or Family Agrees t: Yes Safety Risks/Education Patient Education: Correct Positioning, Safety Issues Teaching Recipient: Patient Teaching Methods: Demonstration, Discussion Response to Teaching: Reinforcement Needed Time/GCodes Time In: 1300 Time Out: 1315 Total Billed Treatment Time: 15 Total Billed Treatment 1 visit EX RUY MCLEOD PT Oct 04, 2019 13:26
--- NOTE | 2019-10-04 13:37 | NUR ---
"RD ASSESSMENT PMHx: dysphagia; afib; HTN; CAD; hypercholesterolemia; stroke (08/02/19) PT INTERACTION: Pt was awake and pleasant during nutrition follow-up. Pt states having no issues with his TF regimen. Note current regimen of TF: 1 can Jevity 1.5 x6/day, with flushes of 70ml before and after each bolus. Total provides 2130 kcal (26 kcal/kg); 91 g Pro (1.1 g Pro/kg); and 1980ml free water (with flushes). Pt states no issues with nausea, vomiting, constipation, or diarrhea since last assessment. Note last BM was 10/03, and pt currently on bowel regimen of colace BID; senna BID; and miralax BID, per chart review. Note recent 7# wt loss x1w, per chart review. ABNORMAL NUTRITION-RELATED LAB VALUES LOW: HIGH: BUN 19 Est. kcal needs: 2025 kcal | 25 kcal/kg Est. Pro needs: 97 g Pro | 1.2 g Pro/kg PES STATEMENT: Inadequate oral intake (NI-2.1) related to NPO status | swallowin difficulty as evidenced by chart review INTERVENTION: Continue with current TF regimen: 1 can Jevity 1.5 x6/day, with flushes of 70ml before and after each bolus. Total provides 2130 kcal (26 kcal/kg); 91 g Pro (1.1 g Pro/kg); and 1980ml free water (with flushes). Will continue to follow and reassess as pt needs, intake, and status change. MONITOR/EVALUATE: PO Intake; Plan of Care; Hydration Status; Weight Status; Lab Values Nima Carrasco, MS, RD, LD"
--- NOTE | 2019-10-04 15:01 | Cardiology Progress Note ---
Cardiology SOAP Progress Note Subjective: No cardiac complaints. Objective: I&O/Vital Signs 10/04/19 10/04/19 05:12 09:00 Temp 36.4 Pulse 89 Resp 20 B/P (MAP) 124/73 (90) Pulse Ox 93 O2 Delivery Room Air Room Air 10/04/19 00:00 Intake Total 1360 ml Balance 1360 ml Constitutional: well-developed, well-nourished, other Respiratory: chest expansion is symmetric, chest is bilaterally symmetric, lungs clear to auscultation Cardiovascular: regular rate-rhythm, S1 and S2, systolic murmur Gastrointestional: soft, audible bowel sounds, other Extremities: no lower extremity edema bilateral Neurologic/Psychiatric: other (L hemiplegia, rightward gaze, monosyllabic spee ch, orientation difficult to determine) Skin: No rash on exposed areas, No ulcerations on exposed areas A/P: Assessment/Dx: Hematochezia on 09/15/19 (warfarin and ASA were held previously) being managed by Dr Simon and Dr Flores 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 Dias at [facility] Records from [facility] report h/o CVA x 3 (2008, 2013 x2) H/O PE in 2016 tx at [facility] Dysphagia - PEG tube in place HTN CAD - CABG x 4 vessel in February 2016 at [facility] by Dr. Regan - quadruple bypass with VILLATORO to LAD, saphenous vein graft to OM 1, saphenous vein T graft to D1, saphenous vein graft to LPDA. 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 Has been on warfarin H/O hematology w/u at [facility] which did not show hypercoagulable state H/O acute gangrenous cholecystitis for which he underwent cholecystectomy in July 2019 at [place] [facility] Documented h/o prostate cancer Plan: Plan: On aspirin. Patient is also on Coumadin. Monitor labs Thank you for your consultation. Please call me if you have any questions. Cresencio Sweet MD, FACP, FACC, FSCAI, FHRS, CCDS Interventional Cardiology Cardiac Electrophysiology Vascular Medicine and Endovascular Interventions Miguel SWEET MD Oct 04, 2019 15:01
--- NOTE | 2019-10-04 15:35 | NUR ---
Patient Care Conference Discussed team conference summary with patient, patient's , patient's daughter and patient's son-in-law. All are in agreement for discharge next 10/10/2019, to daughter's home in [place], [place]. Patient's family has been working closely with certified social workers in health care regarding DME, home health care and other discharge needs. Family training completed this date with therapies and nursing. See conference summary for additional information.
[2019-10-04 18:33] VITALS: BP 137/79
--- NOTE | 2019-10-04 21:32 | NUR ---
ALL MEDICATIONS HAVE BEEN GIVEN PER PEG. PATIENT IS NPO
[2019-10-05] MEDS: SUCRALFATE 1 GM (CARAFATE) TAB PO SCH ×4 (00:23→18:42)
[2019-10-05 05:26] VITALS: BP 137/76
[2019-10-05] MEDS: LEVOTHYROXINE 75 MCG (LEVOTHROID) TABLET PO SCH (06:00)
[2019-10-05] MEDS: SENNA W/DOCUSATE (SENOKOT S) TABLET PO SCH ×2 (09:25→20:24)
[2019-10-05] MEDS: DOCUSATE SODIUM 100 MG (COLACE) CAP PO SCH ×2 (09:25→20:23)
[2019-10-05] MEDS: LACTOBACILLUS ACIDOPHILUS (PROBIOTIC) CAPSULE PEG SCH ×2 (09:25→21:12)
[2019-10-05] MEDS: polyethylene glycoL POWDER 17 GM (MIRALAX) PACK PO SCH ×2 (09:25→20:24)
[2019-10-05] MEDS: ENOXAPARIN 40 MG/0.4 ML (LOVENOX) SYR SC SCH (09:25)
[2019-10-05] MEDS: ASPIRIN 81 MG CHEW (CHILDREN'S ASA) PO SCH (09:25)
[2019-10-05] MEDS: PANTOPRAZOLE 2 MG/ML LIQUID 200 ML (PROTONIX) PEG SCH ×6 (09:37→21:12)
--- NOTE | 2019-10-05 10:01 | PM&R Progress Note ---
Subjective HPI/CC On Admission Date Seen by Provider: Oct 05, 2019 Time Seen by Provider: 08:00 Subjective/Events-last exam 10/05/19: Pt had three bowel movements last night No bleeding noted Slides out of the chair so he remains in bed 10/04/19: Family training next week Overall feels like he is doing pretty well Sleepy today No falls 10/03/19: DC to daughter's house next week Working hard during therapy More alert today 10/02/19: Family at the bedside Xanax and Melatonin were given to help him sleep but he didnt sleep well and that is periodic for him No pain is reported Participating in therapy detention placement pending 10/01/19: Pt was coughing a bit but lungs are clear and he wasn't coughing with me Labs good, Hgb 11.7 No rectal bleeding Maintain on Lovenox for DVT prophylaxis 09/30/19: Patient feels ok TF tolerated Checked meds and labs No pain reported 09/29/19: Daughter at the bedside Patient has difficulty communicating No pain reported Needs NHP 09/28/19: Needs to go to [facility] No pain reported Slight smear of blood with BM so may not even be able to tolerate Lovenox DVT PPx dose 09/27/19: Went from bed to chair without a Sarah-lift today More alert today Had a BM three days ago so will start laxatives No nausea or vomiting Tolerating tube feedings Lovenox 40 Mg started for DVT prophylaxis He just can't seem to tolerate the therapeutic dose for AFIB because of GI bleeds 09/26/19: Insomnia much improved he slept very well last night Bowels are moving Tube feedings are tolerated since it is only one can at a time No falls Appears to be more motivated today 09/25/19: BP remains a little bit low, will replace ROLANDO hose Bowel and bladder incontinence noted today Peg tub will be utilized for increased fluid intake 09/24/19: Holding Lopressor due to orthostasis during PT today BP 125/70 after orthostasis episode resolved No nausea or vomiting Regular rhythm on exam 09/23/19: Tolerating TF well Lethargic is chronic No pain reported 09/22/19: BM yesterday Tolerating TF well No pain reported 09/21/19: Pt more talkative today No more bloody stools Two bowel movements last night were brown Decubitus ulcer on coccyx being monitored and managed 09/20/19: Pt sleeping most of the time Participating in therapy Tube feedings of one can every three hours is working a lot better for him, he is tolerating it better No more bloody stools Cardiology restarted Aspirin but Coumadin will continue to be held because he has had two GI bleeds in the past two weeks and cant withstand a colonoscopy prep Very complex case 09/19/19: Pt sleeps most of the time Will discuss disposition, I doubt any recovery potential Overall needs probably a [facility] for long-term care 09/18/19: Insomnia is an issue Worked with PT today but seems to take a lot of naps during the day which disrupts the nighttime sleeping No pain is reported 09/17/19: Pt sleeps most of the time No major changes No bloody stools Off of Lovenox, Coumadin and Aspirin Second GI bleed in the last few weeks 09/16/19: No bloody stools today Hgb stable 10.3 Is not strong enough to undergo C-scope prep Dr Flores saw him this morning Holding ASA Lovenox Coumadin Had GI at [place] also Decreased cognition 09/15/19: Patient had been doing pretty well when I rounded No more nausea and vomiting like yesterday Tube feeding was restarted slowly I stopped the Clinimix since tube feedings were started N.p.o. 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 Flores general surgery was consulted and checked hemoglobin and hematocrit. 09/14/19: Had nausea and vomiting all last night Needs IV fluids gently so we'll start that today Urinary incontinence noted No fecal incontinence Holding tube feedings for right now Barium swallow today at 11:30 INR 1.4 will increase dose and provide Lovenox 09/13/19: Patient doing pretty well today Sleeping currently Therapy worked with him today Modified Barium Swallow scheduled Hemoglobin 9.6 Disoriented at times Bowels moved yesterday Conferred with RN Reviewed Therapy notes Checked Meds and Labs Review of Systems General: Fatigue, Malaise Neurological: Weakness Objective Exam Vital Signs Vital Signs Date Time Temp Pulse Resp B/P (MAP) Pulse Ox O2 Delivery O2 Flow Rate FiO2 10/06/19 05:42 36.1 82 18 135/65 (88) 95 Room Air Capillary Refill : Less Than 3 SecondsLess Than 3 Seconds General Appearance: No Apparent Distress, WD/WN, Chronically ill HEENT: PERRL/EOMI, Normal ENT Inspection, Pharynx Normal Neck: Full Range of Motion, Normal Inspection, Non Tender, Supple, Carotid Bruit Respiratory: Chest Non Tender, Lungs Clear, Normal Breath Sounds, No Accessory Muscle Use, No Respiratory Distress Cardiovascular: No Edema, No Gallop, No JVD, No Murmur, Normal Peripheral Pu lses, Irregularly Irregular Gastrointestinal: Normal Bowel Sounds, No Organomegaly, No Pulsatile Mass, Non Tender, Soft Back: Normal Inspection, No CVA Tenderness, No Vertebral Tenderness Extremity: Normal Capillary Refill, Normal Inspection, Normal Range of Motion, Non Tender, No Calf Tenderness, Pedal Edema Neurologic/Psychiatric: Alert, Oriented x3, Normal Mood/Affect, 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 FIM Transfers Therapy Code Descriptions/Definitions Functional [place] Measure: 0=Not Assessed/NA 4=Minimal Assistance 1=Total Assistance 5=Supervision or Setup 2=Maximal Assistance 6=Modified [place] 3=Moderate Assistance 7=Complete IndependenceSCALE: Activities may be completed with or without assistive devices. 4-Ytwwrccxhj-tsoonym completes the activity by him/herself with no assistance from a helper. 5-Set-up or Clean-up Assistance-helper sets up or cleans up; patient completes activity. [place] assists only prior to or following the activity. 4-Supervision or Touching Assistance-helper provides verbal cues and/or touching/steadying and/or contact guard assistance as patient completes activity. Assistance may be provided throughout the activity or intermittently. 3-Partial/Moderate Assistance-helper does LESS THAN HALF the effort. [place] lifts, holds or supports trunk or limbs, but provides less than half the effort. 2-Substantial/Maximal Assistance-helper does MORE THAN HALF the effort. [place] lifts or holds trunk or limbs and provides more than half the effort. 9-Fyxjwhbcl-fkmeal does ALL the effort. Patient does none of the effort to complete the activity. Or, the assistance of 2 or more helpers is required for the patient to complete the activity. If activity was not attempted, code reason: 7-Patient Refused. 9-Not Applicable-not attempted and the patient did not perform the activity before the current illness, exacerbation or injury. 10-Not Attempted due to Environmental Limitations-(lack of equipment, weather restraints, etc.). 88-Not Attempted due to Medical Conditions or Safety Concerns. Roll Left to Right (QC): 3 Sit to Lying (QC): 3 Sit to Stand (QC): 2 Chair/Gbw-qm-Znavl Xfer(QC): 2 Car Transfer (QC): 1 Gait Training Does the Patient Walk?: No and Walking Goal NOT indicated Walk 10 feet (QC): 88 Walk 50 ft with 2 Turns(QC): 88 Walk 150 ft (QC): 88 Walking 10ft/uneven surface-QC: 88 Wheelchair Training Does the Pt Use a Wheelchair?: Yes Distance: 150'x2 Wheel 50 ft with 2 turns (QC): 2 Wheel 150 ft (QC): 2 Type of Wheelchair: Manual Stair Training 1 Step (curb) (QC): 88 4 Steps (QC): 88 12 Steps (QC): 88 Balance Picking up an Object (QC): 88 ADL-Treatment Eating (QC): 88 Oral Hygiene (QC): 5 (Set up required then pt is able to complete oral hygiene by self.) Bathing Location: L Arm, L Upper Leg, R Upper Leg, Chest, Abdomen Shower/Bathe Self (QC): 1 Upper Body Dressing (QC): 3 Lower Body Dressing (QC): 1 On/Off Footwear (QC): 2 Toileting Hygiene (QC): 1 Toilet Transfer (QC): 1 Assessment/Plan Assessment and Plan Assess & Plan/Chief Complaint Assessment: CVA Left sided weakness Left sided neglect PEG tube status Dysphagia Aspiration hx with PNA CAD AF Coumadin treatment GIB 09/14/19 Plan: IRF protocol ST to work on dysphagia TF to be maintained Coumadin treatment Cardiology evaluation 09/13/19: Continue aggressive treatment Barium Swallow Monitor Hemoglobin 09/14/19: Give gentle IV fluids Increase INR with Coumadin with Lovenox bridge Barium swallow today 09/15/2019: Monitor GI bleed Hold Coumadin and Lovenox and aspirin Hold tube feedings Consult general surgery for endoscopies Maintain n.p.o. status due to aspiration risk 09/16/19: Monitor Hgb NPO Aspiration risk TF gently 09/17/19: No major changes Sleeping most of the time Stay off blood thinners due to second GI bleed 09/18/19: Insomnia treatment Continue aggressive physical therapy 09/19/19: Disposition will be discussed in team conference Tube feedings are tolerated well No more bloody stools Scrotum seems to be bleeding at times 09/19/19: Continue tube feedings of 1 can every 3 hours Sleeps most of the time No more bloody stools Aspirin was restarted Two GI bleeds in less than 2 weeks precludes restarting Coumadin 09/21/19: No more bloody stools Bowels are now light brown Coccyx has alevan to help heal 09/22/19: TF working well when using 1 can at a time No pain reported Continue therapy 09/23/19: Maintain TF for now 1 can at at time Fall risk IRF protocol 09/24/19: Monitor orthostasis Monitor hemoglobin Appreciate Dietary input 09/25/19: Replace ROLANDO hose to limit orthostasis Increasing PEG tube fluid Noted bowel and bladder dysfunction today 09/26/19: TF to continue Increase therapy Monitor for pain and falls 09/27/19: TF continues and doing well No pain reported Fall risk 09/28/19: Needs NHP Monitor Lovenox complications 09/29/19: No bloody stools TF tolerated Needs NH 09/30/19: SNF admit TF maintained 10/01/19: Monitor coughing Labs stable Continue tube feedings [facility] facility at discharge 10/02/19: detention placement required Insomnia treatment the best we can 10/03/19: Keep bed at 45 degree angle to decrease aspiration Disposition of family next week 10/04/19: Family education training Discharge with daughter next week 10/05/19: Monitor loose stools Monitor for any bleeding in stools Slides out of chair easily (1) CVA (cerebral vascular accident) (2) Atrial fibrillation with normal ventricular rate (3) CAD (coronary artery disease) (4) Stented coronary artery (5) Dysphagia (6) Left-sided weakness (7) At risk for aspiration (8) PEG (percutaneous endoscopic gastrostomy) status (9) On warfarin therapy (10) Left-sided neglect (11) Facial droop KENZIE MORENO DO Oct 05, 2019 10:01
--- NOTE | 2019-10-05 11:58 | Occupational Ther Daily Note ---
OT Current Status-Daily Note Subjective Pt alert, lying in bed. Pt agrees to therapy. No c/o pain. Mental Status/Objective Patient Orientation: Person, Place, Time, Situation ADL-Treatment PT/OT co-treat ([id number]), skills of 2 clinicians required for skilled instruction on neuromuscular training to increase strength and awareness during standing, transfers and UE/LE movement. PT working on standing, transfers and w /c mobility. OT working on L UE placement during transfers and standing, ADLs and functional mobility. Pt incontinent of urine. Dependent with toileting and lower body dressing. Mod A for supine to EOB then pt able to sit EOB with CGA. Assist x2 for transfers and assist x3 for standing. Pt working on dynamic sitting balance, assist to maintain midline and upright sitting while challenging pt to lean toward R side and L side. After session, pt sitting in recliner with call light/phone in reach. All needs met in room. Therapy Code Descriptions/Definitions Functional [place] Measure: 0=Not Assessed/NA 4=Minimal Assistance 1=Total Assistance 5=Supervision or Setup 2=Maximal Assistance 6=Modified [place] 3=Moderate Assistance 7=Complete IndependenceSCALE: Activities may be completed with or without assistive devices. 0-Jzvrkacynr-jjlkesi completes the activity by him/herself with no assistance from a helper. 5-Set-up or Clean-up Assistance-helper sets up or cleans up; patient completes activity. [place] assists only prior to or following the activity. 4-Supervision or Touching Assistance-helper provides verbal cues and/or touching/steadying and/or contact guard assistance as patient completes activity. Assistance may be provided throughout the activity or intermittently. 3-Partial/Moderate Assistance-helper does LESS THAN HALF the effort. [place] lifts, holds or supports trunk or limbs, but provides less than half the effort. 2-Substantial/Maximal Assistance-helper does MORE THAN HALF the effort. [place] lifts or holds trunk or limbs and provides more than half the effort. 1-Xiwxgmedr-yfnkvl does ALL the effort. Patient does none of the effort to complete the activity. Or, the assistance of 2 or more helpers is required for the patient to complete the activity. If activity was not attempted, code reason: 7-Patient Refused. 9-Not Applicable-not attempted and the patient did not perform the activity before the current illness, exacerbation or injury. 10-Not Attempted due to Environmental Limitations-(lack of equipment, weather restraints, etc.). 88-Not Attempted due to Medical Conditions or Safety Concerns. Lower Body Dressing (QC): 1 On/Off Footwear: 2 Toileting Hygiene (QC): 1 OT Short Term Goals Short Term Goals Time Frame: Sep 19, 2019 Shower/bathe self: 2 Upper body dressin Lower body dressin OT Otr Driver Goals Otr Driver Goals Time Frame: Oct 03, 2019 Eating (QC): 4 Oral Hygiene (QC): 4 Toileting Hygiene (QC): 3 Shower/Bathe Self (QC): 3 Upper Body Dressing (QC): 3 Lower Body Dressing (QC): 2 On/Off Footwear (QC): 2 Additional Goals: 1-Demonstrate ADL Tasks, 2-Verbalize Understanding, 3- ImproveStrength/Aliyah 1=Demonstrate adherence to instructed precautions during ADL tasks. 2=Patient will verbalize/demonstrate understanding of assistive devices/modifications for ADL. 3=Patient will improve strength/tolerance for activity to enable patient to perform ADL's. OT Education/Plan Problem List/Assessment Assessment: Decreased Activ Tolerance, Decreased Safety Aware, Decreased UE Strength, Dependent Transfers, Impaired Bed Mobility, Impaired Cognition, Impaired Coordination, Impaired Funct Balance, Impaired I ADL's, Impaired Self- Care Skills, Restricted Funct UE ROM, Visual-Perceptual Deficit Discharge Recommendations Plan/Recommendations: Continue POC Treatment Plan/Plan of Care Patient would benefit from OT for education, treatment and training to promote independence in ADL's, mobility, safety and/or upper extremity function for ADL's. Plan of Care: ADL Retraining, Caregiver Training, Functional Mobility, Group Exercise/Act as Ind, Orthotic Fitting/Training, UE Funct Exercise/Act, UE Neuromus Re-Ed/Coord, Visual/Perceptual Retrain, W/C Management Training Treatment Duration: Oct 03, 2019 Frequency: At least 5 of 7 days/Wk (IRF) Estimated Hrs Per Day: 1.5 hours per day Agreement: Yes Rehab Potential: Poor Time/GCodes Start Time: 11:00 Stop Time: 12:00 Total Time Billed (hr/min): 60 Billed Treatment Time 1 visit-ADL 2 (30 min) NM 2 (30 min) co-treat with PT [id number] (60 min) CALLIE LARIOS Oct 05, 2019 11:58
--- NOTE | 2019-10-05 11:59 | Physical Therapy Daily Note ---
PT Daily Note-Current Subjective Patient in bed pre tx, agrees to PT, has no complaints of pain. Will be co- treating with OT for functional mobility training, due to poor patient mobility, strength, endurance, poor sitting and standing balance, left hemiparesis, pushers syndrome, the need to coordinate UE and LE during activity Appearance Patient in recliner post tx with nurse call,phone, tray, all needs met. Mental Status Patient Orientation: Person, Unable to Assess, Non-Verbal/Aphasic, [place] Transfers SCALE: Activities may be completed with or without assistive devices. 2-Zngekdrumd-uyqunjl completes the activity by him/herself with no assistance from a helper. 5-Set-up or Clean-up Assistance-helper sets up or cleans up; patient completes activity. [place] assists only prior to or following the activity. 4-Supervision or Touching Assistance-helper provides verbal cues and/or to uching/steadying and/or contact guard assistance as patient completes activity. Assistance may be provided throughout the activity or intermittently. 3-Partial/Moderate Assistance-helper does LESS THAN HALF the effort. [place] lifts, holds or supports trunk or limbs, but provides less than half the effort. 2-Substantial/Maximal Assistance-helper does MORE THAN HALF the effort. [place] lifts or holds trunk or limbs and provides more than half the effort. 3-Vxdehzbig-hlszae does ALL the effort. Patient does none of the effort to complete the activity. Or, the assistance of 2 or more helpers is required for the patient to complete the activity. If activity was not attempted, code reason: 7-Patient Refused. 9-Not Applicable-not attempted and the patient did not perform the activity before the current illness, exacerbation or injury. 10-Not Attempted due to Environmental Limitations-(lack of equipment, weather restraints, etc.). 88-Not Attempted due to Medical Conditions or Safety Concerns. Roll Left & Right (QC): 3 Sit to Lying (QC): 3 Lying to Sitting/Side of Bed(Q: 3 Sit to Stand (QC): 2 Chair/Edi-hr-Chpag Xfer(QC): 2 Patient is max assist for stand pivot, he practiced supine <-> sit a few times and rolling(mod assist to roll to the right side), Patient tried to stand inside the parallel bars but pushed with his right arm too much to even attempt this so he stood outside the parallel bars x3 with assist of 3, he pushes to the left side strongly, has trouble standing up straight. Then transferred to therapy table to practice sitting balance and reaching for cones. 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 PT Short Term Goals Short Term Goals Time Frame: Sep 19, 2019 Roll Left & Right: 2 Sit to lyin Lying to sitting on side of be: 2 Sit to stand: 2 Chair/neo-au-tlwpr transfer: 2 Wheel 50ft w/2 turns: 2 Wheel 150 feet: 2 PT Mcc Goals Hot Kettle Tender Goals PT Mcc Goals Time Frame: Oct 03, 2019 Roll Left & Right (QC): 3 Sit to Lying (QC): 3 Lying-Sitting on Side/Bed(QC): 3 Sit to Stand (QC): 3 Chair/Ttc-zq-Uurtc Xfer(QC): 3 Toilet Transfer (QC): 3 Car Transfer (QC): 3 Does the Patient Walk: No and Walking Goal NOT indicated Walk 10 feet (QC): 88 Walk 50ft with 2 Turns (QC): 88 Walk 150 ft (QC): 88 Walking 10ft on Uneven Surface: 88 1 Step (curb) (QC): 88 4 Steps (QC): 88 12 Steps (QC): 88 Picking up an Object (QC): 88 Wheel 50 feet with 2 turns (QC: 3 Wheel 150 feet: 3 PT Plan Problem List Problem List: Activity Tolerance, Functional Strength, Safety, Balance, Gait, Transfer, Bed Mobility, ROM Treatment/Plan Treatment Plan: Continue Plan of Care Treatment Plan: Bed Mobility, Education, Functional Activity Aliyah, Functional Strength, Group Therapy, Gait, Safety, Therapeutic Exercise, Transfers Treatment Duration: Oct 03, 2019 Frequency: At least 5 of 7 days/Wk (IRF) Estimated Hrs Per Day: 1.5 hours per day Patient and/or Family Agrees t: Yes Safety Risks/Education Patient Education: Transfer Techniques, Correct Positioning, W/C Management, Safety Issues Teaching Recipient: Patient Teaching Methods: Demonstration, Discussion Response to Teaching: Reinforcement Needed Time/GCodes Time In: 1100 Time Out: 1200 Total Billed Treatment Time: 60 Total Billed Treatment 1 visit FA Tyshawn' RUY MCGRATH PT Oct 05, 2019 11:59
--- NOTE | 2019-10-05 12:36 | Speech Therapy Daily Note ---
Speech Daily Progress Note Subjective Date Seen by Provider: Oct 05, 2019 Time Seen by Provider: 00:30 Patient was resting in his bed watching television when I entered his room. Patient was alert and awake for the entire session. Objective Patient completed a series of questions related to "what's wrong with this picture?" cards at 75% with minimal cues. Assessment Assessment Current Status: Fair Progress Treatment Plan Continue Plan of Care Speech Short Term Goals Short Term Goals Short Term Goals 1) Patient will complete expressive language exercises at 90% or greater with minimal cues. 2) Patient will complete OME x10 with 90% or greater with minimal cues. 3) Patient will complete oral trials with 90% or greater without s/s of aspiration. Speech Mcc Goals Mcc Goals Patient will improve speech production for effective communication of his wants/needs. Patient will maintain adequate nutrition/hydration via PEG and/or oral intake. Speech-Plan Patient/Family Goals Patient/Family Goals: Patient is scheduled to return home with family and home health services in the next week. Treatment Plan Speech Therapy Treatment Plan: Continue Plan of Care Treatment Duration: Oct 10, 2019 Frequency: 4 times per week (Patient will receive skilled ST 4-5x per week) Estimated Hrs Per Day: .5 hour per day Rehab Potential: Poor Barriers to Learning: Patient's medical status as related to after affects from his CVA Pt/Family Agrees to Plan: Yes Safety Risks/Education Teaching Recipient: Patient Teaching Methods: Demonstration, Discussion Response to Teaching: Verbalize Understanding, Return Demonstration Education Topics Provided: Continued safety and utilization of his call light/roberts as needed Time Speech Therapy Time In: 10:00 Speech Therapy Time Out: 10:30 Total Billed Time: 30 Billed Treatment Time 1VONDA BETH[address] ST Oct 05, 2019 12:36
--- NOTE | 2019-10-05 12:48 | Cardiology Progress Note ---
Cardiology SOAP Progress Note Subjective: No cardiac complaints. Objective: I&O/Vital Signs 10/05/19 10/05/19 05:26 09:00 Temp 35.8 Pulse 72 Resp 18 B/P (MAP) 137/76 (96) Pulse Ox 92 O2 Delivery Room Air Room Air 10/05/19 00:00 Intake Total 1360 ml Balance 1360 ml Constitutional: well-developed, well-nourished, other Respiratory: chest expansion is symmetric, chest is bilaterally symmetric, lungs clear to auscultation Cardiovascular: regular rate-rhythm, S1 and S2, systolic murmur Gastrointestional: soft, audible bowel sounds, other Extremities: no lower extremity edema bilateral Neurologic/Psychiatric: other (L hemiplegia, rightward gaze, monosyllabic spee ch, orientation difficult to determine) Skin: No rash on exposed areas, No ulcerations on exposed areas A/P: Assessment/Dx: Hematochezia on 09/15/19 (warfarin and ASA were held previously) being managed by Dr Simon and Dr Flores 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 Dias at [facility] Records from [facility] report h/o CVA x 3 (2008, 2013 x2) H/O PE in 2016 tx at [facility] Dysphagia - PEG tube in place HTN CAD - CABG x 4 vessel in February 2016 at [facility] by Dr. Regan - quadruple bypass with VILLATORO to LAD, saphenous vein graft to OM 1, saphenous vein T graft to D1, saphenous vein graft to LPDA. 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 Has been on warfarin H/O hematology w/u at [facility] which did not show hypercoagulable state H/O acute gangrenous cholecystitis for which he underwent cholecystectomy in July 2019 at [place] Documented h/o prostate cancer Plan: Plan: On aspirin. Patient is also on Coumadin. Monitor labs Thank you for your consultation. Please call me if you have any questions. Cresencio Sweet MD, FACP, FACC, FSCAI, FHRS, CCDS Interventional Cardiology Cardiac Electrophysiology Vascular Medicine and Endovascular Interventions Miguel SWEET MD Oct 05, 2019 12:48
--- NOTE | 2019-10-05 14:11 | Therapy Group Daily Note ---
Therapy Daily Group Note Patient Education Topic Home Safety, Exercises Exercises LE Seated Exercise, UE Exercise Session Ratio (pt:therapist): 3:1 Goal of Session: Home Safety Strategies, UE/LE Strengthing Goal Met for this Session: Yes Pt Benefit of Group: Contributions to Others, F/U Use of Strategies @Home, Increased Functional Strength, Improved Cognition, Recognition of Peers, Socialization Other/Notes Patient was taken to the common area of rehab in , sat at a table and was compliant with social distancing (and wore a mask). Each patient had to introduce themselves and state where they were from and answer a question that involved memory. Sergey had trouble verbalizing but could answer with help. Then patients participated in a group activity that involved comprehension and digital manipulation and problem solving. Intermittently patient's had to answer questions about home safety and perform UE and LE seated exercise. When done patient was taken back to his room with a therapist and got into bed or chair with nurse call and tray available. Patient needed assist with scooting up in his a couple of times. Start Time: 12:50 Stop Time: 13:50 Total Billed Treatment Time: 60 Total Billed Treatment 1 visit GRP Dayami INGRAMSALAZAR RODRIGUEZIS PT Oct 05, 2019 14:11
[2019-10-05 16:30] VITALS: BP 141/83
[2019-10-05] MEDS: MELATONIN 3 MG TABLET PO PRN (21:12)
[2019-10-05] MEDS: ALPRAZolam 0.25 MG (XANAX) TAB PO PRN (21:13)
[2019-10-06] MEDS: SUCRALFATE 1 GM (CARAFATE) TAB PO SCH ×4 (00:43→17:45)
[2019-10-06 05:42] VITALS: BP 135/65
[2019-10-06] MEDS: LEVOTHYROXINE 75 MCG (LEVOTHROID) TABLET PO SCH (06:13)
--- NOTE | 2019-10-06 07:36 | PM&R Progress Note ---
Subjective HPI/CC On Admission Date Seen by Provider: Oct 06, 2019 Time Seen by Provider: 11:00 Subjective/Events-last exam 10/06/19: Patient doing well No major issues 2 BM's 10/05/19: Pt had three bowel movements last night No bleeding noted Slides out of the chair so he remains in bed 10/04/19: Family training next week Overall feels like he is doing pretty well Sleepy today No falls 10/03/19: DC to daughter's house next week Working hard during therapy More alert today 10/02/19: Family at the bedside Xanax and Melatonin were given to help him sleep but he didnt sleep well and that is periodic for him No pain is reported Participating in therapy alf placement pending 10/01/19: Pt was coughing a bit but lungs are clear and he wasn't coughing with me Labs good, Hgb 11.7 No rectal bleeding Maintain on Lovenox for DVT prophylaxis 09/30/19: Patient feels ok TF tolerated Checked meds and labs No pain reported 09/29/19: Daughter at the bedside Patient has difficulty communicating No pain reported Needs NHP 09/28/19: Needs to go to [place] No pain reported Slight smear of blood with BM so may not even be able to tolerate Lovenox DVT PPx dose 09/27/19: Went from bed to chair without a Sarah-lift today More alert today Had a BM three days ago so will start laxatives No nausea or vomiting Tolerating tube feedings Lovenox 40 Mg started for DVT prophylaxis He just can't seem to tolerate the therapeutic dose for AFIB because of GI bleeds 09/26/19: Insomnia much improved he slept very well last night Bowels are moving Tube feedings are tolerated since it is only one can at a time No falls Appears to be more motivated today 09/25/19: BP remains a little bit low, will replace ROLANDO hose Bowel and bladder incontinence noted today Peg tub will be utilized for increased fluid intake 09/24/19: Holding Lopressor due to orthostasis during PT today BP 125/70 after orthostasis episode resolved No nausea or vomiting Regular rhythm on exam 09/23/19: Tolerating TF well Lethargic is chronic No pain reported 09/22/19: BM yesterday Tolerating TF well No pain reported 09/21/19: Pt more talkative today No more bloody stools Two bowel movements last night were brown Decubitus ulcer on coccyx being monitored and managed 09/20/19: Pt sleeping most of the time Participating in therapy Tube feedings of one can every three hours is working a lot better for him, he is tolerating it better No more bloody stools Cardiology restarted Aspirin but Coumadin will continue to be held because he has had two GI bleeds in the past two weeks and cant withstand a colonoscopy prep Very complex case 09/19/19: Pt sleeps most of the time Will discuss disposition, I doubt any recovery potential Overall needs probably a intermediate for long-term care 09/18/19: Insomnia is an issue Worked with PT today but seems to take a lot of naps during the day which disrupts the nighttime sleeping No pain is reported 09/17/19: Pt sleeps most of the time No major changes No bloody stools Off of Lovenox, Coumadin and Aspirin Second GI bleed in the last few weeks 09/16/19: No bloody stools today Hgb stable 10.3 Is not strong enough to undergo C-scope prep Dr Flores saw him this morning Holding ASA Lovenox Coumadin Had GI at [place] also Decreased cognition 09/15/19: Patient had been doing pretty well when I rounded No more nausea and vomiting like yesterday Tube feeding was restarted slowly I stopped the Clinimix since tube feedings were started N.p.o. 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 Flores general surgery was consulted and checked hemoglobin and hematocrit. 09/14/19: Had nausea and vomiting all last night Needs IV fluids gently so we'll start that today Urinary incontinence noted No fecal incontinence Holding tube feedings for right now Barium swallow today at 11:30 INR 1.4 will increase dose and provide Lovenox 09/13/19: Patient doing pretty well today Sleeping currently Therapy worked with him today Modified Barium Swallow scheduled Hemoglobin 9.6 Disoriented at times Bowels moved yesterday Conferred with RN Reviewed Therapy notes Checked Meds and Labs Review of Systems Neurological: Weakness, Incoordination Objective Exam Vital Signs Vital Signs Date Time Temp Pulse Resp B/P (MAP) Pulse Ox O2 Delivery O2 Flow Rate FiO2 10/06/19 09:00 Room Air 10/06/19 05:42 36.1 82 18 135/65 (88) 95 Capillary Refill : Less Than 3 SecondsLess Than 3 Seconds General Appearance: No Apparent Distress, WD/WN, Chronically ill HEENT: PERRL/EOMI, Normal ENT Inspection, Pharynx Normal Neck: Full Range of Motion, Normal Inspection, Non Tender, Supple, Carotid Bruit Respiratory: Chest Non Tender, Lungs Clear, Normal Breath Sounds, No Accessory Muscle Use, No Respiratory Distress Cardiovascular: No Edema, No Gallop, No JVD, No Murmur, Normal Peripheral Pulses, Irregularly Irregular Gastrointestinal: Normal Bowel Sounds, No Organomegaly, No Pulsatile Mass, Non Tender, Soft Back: Normal Inspection, No CVA Tenderness, No Vertebral Tenderness Extremity: Normal Capillary Refill, Normal Inspection, Normal Range of Motion, Non Tender, No Calf Tenderness, Pedal Edema Neurologic/Psychiatric: Alert, Oriented x3, Normal Mood/Affect, hot mill shearer II-XII Norm as Tested, Aphasia, Facial Droop, Motor Weakness Skin: Normal Color, Warm/Dry Lymphatic: No Adenopathy Results/Procedures Lab Patient resulted labs reviewed. FIM Transfers Therapy Code Descriptions/Definitions Functional [place] Measure: 0=Not Assessed/NA 4=Minimal Assistance 1=Total Assistance 5=Supervision or Setup 2=Maximal Assistance 6=Modified [place]mullen 3=Moderate Assistance 7=Complete IndependenceSCALE: Activities may be completed with or without assistive devices. 0-Ctkwhitjzc-mpadnag completes the activity by him/herself with no assistance from a helper. 5-Set-up or Clean-up Assistance-helper sets up or cleans up; patient completes activity. [place] assists only prior to or following the activity. 4-Supervision or Touching Assistance-helper provides verbal cues and/or touching/steadying and/or contact guard assistance as patient completes activity. Assistance may be provided throughout the activity or intermittently. 3-Partial/Moderate Assistance-helper does LESS THAN HALF the effort. [place] lifts, holds or supports trunk or limbs, but provides less than half the effort. 2-Substantial/Maximal Assistance-helper does MORE THAN HALF the effort. [place] lifts or holds trunk or limbs and provides more than half the effort. 7-Afwldwixk-oefjmd does ALL the effort. Patient does none of the effort to complete the activity. Or, the assistance of 2 or more helpers is required for the patient to complete the activity. If activity was not attempted, code reason: 7-Patient Refused. 9-Not Applicable-not attempted and the patient did not perform the activity before the current illness, exacerbation or injury. 10-Not Attempted due to Environmental Limitations-(lack of equipment, weather restraints, etc.). 88-Not Attempted due to Medical Conditions or Safety Concerns. Roll Left to Right (QC): 3 Sit to Lying (QC): 3 Sit to Stand (QC): 2 Chair/Quw-cj-Qkiwo Xfer(QC): 2 Car Transfer (QC): 1 Gait Training Does the Patient Walk?: No and Walking Goal NOT indicated Walk 10 feet (QC): 88 Walk 50 ft with 2 Turns(QC): 88 Walk 150 ft (QC): 88 Walking 10ft/uneven surface-QC: 88 Wheelchair Training Does the Pt Use a Wheelchair?: Yes Distance: 150'x2 Wheel 50 ft with 2 turns (QC): 4 Wheel 150 ft (QC): 4 Type of Wheelchair: Manual Stair Training 1 Step (curb) (QC): 88 4 Steps (QC): 88 12 Steps (QC): 88 Balance Picking up an Object (QC): 88 ADL-Treatment Eating (QC): 88 Oral Hygiene (QC): 5 (Set up required then pt is able to complete oral hygiene by self.) Bathing Location: L Arm, L Upper Leg, R Upper Leg, Chest, Abdomen Shower/Bathe Self (QC): 1 Upper Body Dressing (QC): 3 Lower Body Dressing (QC): 1 On/Off Footwear (QC): 2 Toileting Hygiene (QC): 1 Toilet Transfer (QC): 1 Assessment/Plan Assessment and Plan Assess & Plan/Chief Complaint Assessment: CVA Left sided weakness Left sided neglect PEG tube status Dysphagia Aspiration hx with PNA CAD AF Coumadin treatment GIB 09/14/19 Plan: IRF protocol ST to work on dysphagia TF to be maintained Coumadin treatment Cardiology evaluation 09/13/19: Continue aggressive treatment Barium Swallow Monitor Hemoglobin 09/14/19: Give gentle IV fluids Increase INR with Coumadin with Lovenox bridge Barium swallow today 09/15/2019: Monitor GI bleed Hold Coumadin and Lovenox and aspirin Hold tube feedings Consult general surgery for endoscopies Maintain n.p.o. status due to aspiration risk 09/16/19: Monitor Hgb NPO Aspiration risk TF gently 09/17/19: No major changes Sleeping most of the time Stay off blood thinners due to second GI bleed 09/18/19: Insomnia treatment Continue aggressive physical therapy 09/19/19: Disposition will be discussed in team conference Tube feedings are tolerated well No more bloody stools Scrotum seems to be bleeding at times 09/19/19: Continue tube feedings of 1 can every 3 hours Sleeps most of the time No more bloody stools Aspirin was restarted Two GI bleeds in less than 2 weeks precludes restarting Coumadin 09/21/19: No more bloody stools Bowels are now light brown Coccyx has alevan to help heal 09/22/19: TF working well when using 1 can at a time No pain reported Continue therapy 09/23/19: Maintain TF for now 1 can at at time Fall risk IRF protocol 09/24/19: Monitor orthostasis Monitor hemoglobin Appreciate Dietary input 09/25/19: Replace ROLANDO hose to limit orthostasis Increasing PEG tube fluid Noted bowel and bladder dysfunction today 09/26/19: TF to continue Increase therapy Monitor for pain and falls 09/27/19: TF continues and doing well No pain reported Fall risk 09/28/19: Needs NHP Monitor Lovenox complications 09/29/19: No bloody stools TF tolerated Needs NH 09/30/19: SNF admit TF maintained 10/01/19: Monitor coughing Labs stable Continue tube feedings [facility] facility at discharge 10/02/19: alf placement required Insomnia treatment the best we can 10/03/19: Keep bed at 45 degree angle to decrease aspiration Disposition of family next week 10/04/19: Family education training Discharge with daughter next week 10/05/19: Monitor loose stools Monitor for any bleeding in stools Slides out of chair easily 10/06/19: Monitor closely TF tolerated DC with family next week (1) CVA (cerebral vascular accident) (2) Atrial fibrillation with normal ventricular rate (3) CAD (coronary artery disease) (4) Stented coronary artery (5) Dysphagia (6) Left-sided weakness (7) At risk for aspiration (8) PEG (percutaneous endoscopic gastrostomy) status (9) On warfarin therapy (10) Left-sided neglect (11) Facial droop KENZIE MORENO DO Oct 06, 2019 07:36
[2019-10-06] MEDS: SCOPOLAMINE 1.5 MG (TRANSDERM-SCOP) PATCH TD SCH (08:56)
[2019-10-06] MEDS: ASPIRIN 81 MG CHEW (CHILDREN'S ASA) PO SCH (08:56)
[2019-10-06] MEDS: LACTOBACILLUS ACIDOPHILUS (PROBIOTIC) CAPSULE PEG SCH ×2 (08:56→20:15)
[2019-10-06] MEDS: ENOXAPARIN 40 MG/0.4 ML (LOVENOX) SYR SC SCH (08:56)
[2019-10-06] MEDS: PANTOPRAZOLE 2 MG/ML LIQUID 200 ML (PROTONIX) PEG SCH ×6 (08:57→20:16)
[2019-10-06] MEDS: SCOPOLAMINE PATCH REMOVAL TP SCH (08:57)
[2019-10-06] MEDS: polyethylene glycoL POWDER 17 GM (MIRALAX) PACK PO SCH ×2 (09:58→19:37)
[2019-10-06] MEDS: DOCUSATE SODIUM 100 MG (COLACE) CAP PO SCH ×2 (09:58→19:37)
[2019-10-06] MEDS: SENNA W/DOCUSATE (SENOKOT S) TABLET PO SCH ×2 (09:58→19:37)
--- NOTE | 2019-10-06 11:42 | Physical Therapy Daily Note ---
PT Daily Note-Current Subjective Pt agreeable, denies pain. Mental Status Patient Orientation: Person Transfers SCALE: Activities may be completed with or without assistive devices. 4-Wxrhxqhmvy-ckpgsby completes the activity by him/herself with no assistance from a helper. 5-Set-up or Clean-up Assistance-helper sets up or cleans up; patient completes activity. [address] assists only prior to or following the activity. 4-Supervision or Touching Assistance-helper provides verbal cues and/or touching/steadying and/or contact guard assistance as patient completes activity. Assistance may be provided throughout the activity or intermittently. 3-Partial/Moderate Assistance-helper does LESS THAN HALF the effort. [address] lifts, holds or supports trunk or limbs, but provides less than half the effort. 2-Substantial/Maximal Assistance-helper does MORE THAN HALF the effort. [address] lifts or holds trunk or limbs and provides more than half the effort. 3-Dbgijgkye-kxpfwq does ALL the effort. Patient does none of the effort to complete the activity. Or, the assistance of 2 or more helpers is required for the patient to complete the activity. If activity was not attempted, code reason: 7-Patient Refused. 9-Not Applicable-not attempted and the patient did not perform the activity before the current illness, exacerbation or injury. 10-Not Attempted due to Environmental Limitations-(lack of equipment, weather restraints, etc.). 88-Not Attempted due to Medical Conditions or Safety Concerns. Weight Bearing Full Weight Bearing Full Weight Bearing Treatments Pt seen for LE ther ex in bed with man assist (L) LE. Rolling in bed with min- mod A. Donned pants total assist. Sarah bed to recliner. Pt propped and positioned in recliner with wedges and (L) UE floating on pillow. Pt indicated he was comfortable, demonstrated ability to ring roberts as needed for assistance. Pt reclined and all needs met. Assessment Current Status: Fair Progress Pt shannon well. Pt indicated he was comfortable. Pt with call light and resting post therapy. PT Short Term Goals Short Term Goals Time Frame: Sep 19, 2019 Roll Left & Right: 2 Sit to lyin Lying to sitting on side of be: 2 Sit to stand: 2 Chair/uiv-kl-gfgmg transfer: 2 Wheel 50ft w/2 turns: 2 Wheel 150 feet: 2 PT Magnetic Resonance Imaging Director Goals Magnetic Resonance Imaging Director Goals PT Magnetic Resonance Imaging Director Goals Time Frame: Oct 03, 2019 Roll Left & Right (QC): 3 Sit to Lying (QC): 3 Lying-Sitting on Side/Bed(QC): 3 Sit to Stand (QC): 3 Chair/Oxa-gm-Klxnz Xfer(QC): 3 Toilet Transfer (QC): 3 Car Transfer (QC): 3 Does the Patient Walk: No and Walking Goal NOT indicated Walk 10 feet (QC): 88 Walk 50ft with 2 Turns (QC): 88 Walk 150 ft (QC): 88 Walking 10ft on Uneven Surface: 88 1 Step (curb) (QC): 88 4 Steps (QC): 88 12 Steps (QC): 88 Picking up an Object (QC): 88 Wheel 50 feet with 2 turns (QC: 3 Wheel 150 feet: 3 PT Plan Treatment/Plan Treatment Plan: Continue Plan of Care Treatment Plan: Bed Mobility, Education, Functional Activity Aliyah, Functional Strength, Group Therapy, Gait, Safety, Therapeutic Exercise, Transfers Treatment Duration: Oct 03, 2019 Frequency: At least 5 of 7 days/Wk (IRF) Estimated Hrs Per Day: 1.5 hours per day Patient and/or Family Agrees t: Yes Time/GCodes Time In: 910 Time Out: 935 Total Billed Treatment Time: 25 Total Billed Treatment 1, FA 15', Ther ex 10' TARIQ CARBONE CPTCollin Oct 06, 2019 11:42
--- NOTE | 2019-10-06 14:11 | Cardiology Progress Note ---
Cardiology SOAP Progress Note Subjective: no cardiac complaints Objective: I&O/Vital Signs 10/06/19 10/06/19 05:42 09:00 Temp 36.1 Pulse 82 Resp 18 B/P (MAP) 135/65 (88) Pulse Ox 95 O2 Delivery Room Air Room Air 10/06/19 00:00 Intake Total 1560 ml Balance 1560 ml Constitutional: well-developed, well-nourished, other Respiratory: chest expansion is symmetric, chest is bilaterally symmetric, lungs clear to auscultation Cardiovascular: regular rate-rhythm, S1 and S2, systolic murmur Gastrointestional: soft, audible bowel sounds, other Extremities: no lower extremity edema bilateral Neurologic/Psychiatric: other (L hemiplegia, rightward gaze, monosyllabic speec h, orientation difficult to determine) Skin: No rash on exposed areas, No ulcerations on exposed areas A/P: Assessment/Dx: Hematochezia on 09/15/19 (warfarin and ASA were held previously) being managed by Dr Simon and Dr Flores 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 Dias at [facility] Records from [facility] report h/o CVA x 3 (2008, 2013 x2) H/O PE in 2016 tx at [facility] Dysphagia - PEG tube in place HTN CAD - CABG x 4 vessel in February 2016 at [facility] by Dr. Regan - quadruple bypass with VILLATORO to LAD, saphenous vein graft to OM 1, saphenous vein T graft to D1, saphenous vein graft to LPDA. 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 Has been on warfarin H/O hematology w/u at [facility] which did not show hypercoagulable state H/O acute gangrenous cholecystitis for which he underwent cholecystectomy in July 2019 at [place] Documented h/o prostate cancer Plan: Plan: On aspirin. Patient is also on Coumadin. Monitor labs Thank you for your consultation. Please call me if you have any questions. Cresencio Sweet MD, FACP, FACC, FSCAI, FHRS, CCDS Interventional Cardiology Cardiac Electrophysiology Vascular Medicine and Endovascular Interventions Miguel SWEET MD Oct 06, 2019 14:11
[2019-10-06 16:30] VITALS: BP 143/64
[2019-10-07] MEDS: SUCRALFATE 1 GM (CARAFATE) TAB PO SCH ×4 (00:55→17:24)
[2019-10-07] MEDS: LEVOTHYROXINE 75 MCG (LEVOTHROID) TABLET PO SCH (05:39)
[2019-10-07 06:00] VITALS: BP 137/73
[2019-10-07] MEDS: DOCUSATE SODIUM 100 MG (COLACE) CAP PO SCH ×2 (08:52→20:32)
[2019-10-07] MEDS: ASPIRIN 81 MG CHEW (CHILDREN'S ASA) PO SCH (08:52)
[2019-10-07] MEDS: SENNA W/DOCUSATE (SENOKOT S) TABLET PO SCH ×2 (08:54→20:32)
[2019-10-07] MEDS: LACTOBACILLUS ACIDOPHILUS (PROBIOTIC) CAPSULE PEG SCH ×2 (08:54→20:29)
[2019-10-07] MEDS: ENOXAPARIN 40 MG/0.4 ML (LOVENOX) SYR SC SCH (08:54)
[2019-10-07] MEDS: PANTOPRAZOLE 2 MG/ML LIQUID 200 ML (PROTONIX) PEG SCH ×6 (08:54→20:31)
[2019-10-07] MEDS: polyethylene glycoL POWDER 17 GM (MIRALAX) PACK PO SCH ×2 (09:08→20:32)
--- NOTE | 2019-10-07 09:59 | PM&R Progress Note ---
Subjective HPI/CC On Admission Date Seen by Provider: Oct 07, 2019 Time Seen by Provider: 11:00 Subjective/Events-last exam 10/07/19: Patient sleeps most of the time No falls No pain reported 10/06/19: Patient doing well No major issues 2 BM's 10/05/19: Pt had three bowel movements last night No bleeding noted Slides out of the chair so he remains in bed 10/04/19: Family training next week Overall feels like he is doing pretty well Sleepy today No falls 10/03/19: DC to daughter's house next week Working hard during therapy More alert today 10/02/19: Family at the bedside Xanax and Melatonin were given to help him sleep but he didnt sleep well and that is periodic for him No pain is reported Participating in therapy custodial placement pending 10/01/19: Pt was coughing a bit but lungs are clear and he wasn't coughing with me Labs good, Hgb 11.7 No rectal bleeding Maintain on Lovenox for DVT prophylaxis 09/30/19: Patient feels ok TF tolerated Checked meds and labs No pain reported 09/29/19: Daughter at the bedside Patient has difficulty communicating No pain reported Needs NHP 09/28/19: Needs to go to [place] No pain reported Slight smear of blood with BM so may not even be able to tolerate Lovenox DVT PPx dose 09/27/19: Went from bed to chair without a Sarah-lift today More alert today Had a BM three days ago so will start laxatives No nausea or vomiting Tolerating tube feedings Lovenox 40 Mg started for DVT prophylaxis He just can't seem to tolerate the therapeutic dose for AFIB because of GI bleeds 09/26/19: Insomnia much improved he slept very well last night Bowels are moving Tube feedings are tolerated since it is only one can at a time No falls Appears to be more motivated today 09/25/19: BP remains a little bit low, will replace ROLANDO hose Bowel and bladder incontinence noted today Peg tub will be utilized for increased fluid intake 09/24/19: Holding Lopressor due to orthostasis during PT today BP 125/70 after orthostasis episode resolved No nausea or vomiting Regular rhythm on exam 09/23/19: Tolerating TF well Lethargic is chronic No pain reported 09/22/19: BM yesterday Tolerating TF well No pain reported 09/21/19: Pt more talkative today No more bloody stools Two bowel movements last night were brown Decubitus ulcer on coccyx being monitored and managed 09/20/19: Pt sleeping most of the time Participating in therapy Tube feedings of one can every three hours is working a lot better for him, he is tolerating it better No more bloody stools Cardiology restarted Aspirin but Coumadin will continue to be held because he has had two GI bleeds in the past two weeks and cant withstand a colonoscopy prep Very complex case 09/19/19: Pt sleeps most of the time Will discuss disposition, I doubt any recovery potential Overall needs probably a long-term for long-term care 09/18/19: Insomnia is an issue Worked with PT today but seems to take a lot of naps during the day which disrupts the nighttime sleeping No pain is reported 09/17/19: Pt sleeps most of the time No major changes No bloody stools Off of Lovenox, Coumadin and Aspirin Second GI bleed in the last few weeks 09/16/19: No bloody stools today Hgb stable 10.3 Is not strong enough to undergo C-scope prep Dr Flores saw him this morning Holding ASA Lovenox Coumadin Had GI at [place] also Decreased cognition 09/15/19: Patient had been doing pretty well when I rounded No more nausea and vomiting like yesterday Tube feeding was restarted slowly I stopped the Clinimix since tube feedings were started N.p.o. 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 Flores general surgery was consulted and checked hemoglobin and hematocrit. 09/14/19: Had nausea and vomiting all last night Needs IV fluids gently so we'll start that today Urinary incontinence noted No fecal incontinence Holding tube feedings for right now Barium swallow today at 11:30 INR 1.4 will increase dose and provide Lovenox 09/13/19: Patient doing pretty well today Sleeping currently Therapy worked with him today Modified Barium Swallow scheduled Hemoglobin 9.6 Disoriented at times Bowels moved yesterday Conferred with RN Reviewed Therapy notes Checked Meds and Labs Review of Systems General: Fatigue, Malaise Neurological: Weakness, Incoordination Objective Exam Vital Signs Vital Signs Date Time Temp Pulse Resp B/P (MAP) Pulse Ox O2 Delivery O2 Flow Rate FiO2 10/07/19 17:14 36.6 73 18 132/70 (90) 95 Room Air Capillary Refill : Less Than 3 SecondsLess Than 3 Seconds General Appearance: No Apparent Distress, WD/WN, Chronically ill HEENT: PERRL/EOMI, Normal ENT Inspection, Pharynx Normal Neck: Full Range of Motion, Normal Inspection, Non Tender, Supple, Carotid Bruit Respiratory: Chest Non Tender, Lungs Clear, Normal Breath Sounds, No Accessory Muscle Use, No Respiratory Distress Cardiovascular: No Edema, No Gallop, No JVD, No Murmur, Normal Peripheral Pulses, Irregularly Irregular Gastrointestinal: Normal Bowel Sounds, No Organomegaly, No Pulsatile Mass, Non Tender, Soft Back: Normal Inspection, No CVA Tenderness, No Vertebral Tenderness Extremity: Normal Capillary Refill, Normal Inspection, Normal Range of Motion, Non Tender, No Calf Tenderness, Pedal Edema Neurologic/Psychiatric: Alert, Oriented x3, Normal Mood/Affect, 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 FIM Transfers Therapy Code Descriptions/Definitions Functional [place] Measure: 0=Not Assessed/NA 4=Minimal Assistance 1=Total Assistance 5=Supervision or Setup 2=Maximal Assistance 6=Modified [place] 3=Moderate Assistance 7=Complete IndependenceSCALE: Activities may be completed with or without assistive devices. 2-Mykmfsunao-pscvdge completes the activity by him/herself with no assistance from a helper. 5-Set-up or Clean-up Assistance-helper sets up or cleans up; patient completes activity. [place] assists only prior to or following the activity. 4-Supervision or Touching Assistance-helper provides verbal cues and/or touching/steadying and/or contact guard assistance as patient completes activity. Assistance may be provided throughout the activity or intermittently. 3-Partial/Moderate Assistance-helper does LESS THAN HALF the effort. [place] lifts, holds or supports trunk or limbs, but provides less than half the effort. 2-Substantial/Maximal Assistance-helper does MORE THAN HALF the effort. [place] lifts or holds trunk or limbs and provides more than half the effort. 1-Wgzpyaybq-azituq does ALL the effort. Patient does none of the effort to complete the activity. Or, the assistance of 2 or more helpers is required for the patient to complete the activity. If activity was not attempted, code reason: 7-Patient Refused. 9-Not Applicable-not attempted and the patient did not perform the activity before the current illness, exacerbation or injury. 10-Not Attempted due to Environmental Limitations-(lack of equipment, weather restraints, etc.). 88-Not Attempted due to Medical Conditions or Safety Concerns. Roll Left to Right (QC): 3 Sit to Lying (QC): 3 Sit to Stand (QC): 2 Chair/Lyj-tb-Frgqy Xfer(QC): 2 Car Transfer (QC): 1 Gait Training Does the Patient Walk?: No and Walking Goal NOT indicated Walk 10 feet (QC): 88 Walk 50 ft with 2 Turns(QC): 88 Walk 150 ft (QC): 88 Walking 10ft/uneven surface-QC: 88 Wheelchair Training Does the Pt Use a Wheelchair?: Yes Distance: 150'x2 Wheel 50 ft with 2 turns (QC): 4 Wheel 150 ft (QC): 4 Type of Wheelchair: Manual Stair Training 1 Step (curb) (QC): 88 4 Steps (QC): 88 12 Steps (QC): 88 Balance Picking up an Object (QC): 88 ADL-Treatment Eating (QC): 88 Oral Hygiene (QC): 5 (Set up required then pt is able to complete oral hygiene by self.) Bathing Location: L Arm, L Upper Leg, R Upper Leg, Chest, Abdomen Shower/Bathe Self (QC): 1 Upper Body Dressing (QC): 3 Lower Body Dressing (QC): 1 On/Off Footwear (QC): 2 Toileting Hygiene (QC): 1 Toilet Transfer (QC): 1 Assessment/Plan Assessment and Plan Assess & Plan/Chief Complaint Assessment: CVA Left sided weakness Left sided neglect PEG tube status Dysphagia Aspiration hx with PNA CAD AF Coumadin treatment GIB 09/14/19 Plan: IRF protocol ST to work on dysphagia TF to be maintained Coumadin treatment Cardiology evaluation 09/13/19: Continue aggressive treatment Barium Swallow Monitor Hemoglobin 09/14/19: Give gentle IV fluids Increase INR with Coumadin with Lovenox bridge Barium swallow today 09/15/2019: Monitor GI bleed Hold Coumadin and Lovenox and aspirin Hold tube feedings Consult general surgery for endoscopies Maintain n.p.o. status due to aspiration risk 09/16/19: Monitor Hgb NPO Aspiration risk TF gently 09/17/19: No major changes Sleeping most of the time Stay off blood thinners due to second GI bleed 09/18/19: Insomnia treatment Continue aggressive physical therapy 09/19/19: Disposition will be discussed in team conference Tube feedings are tolerated well No more bloody stools Scrotum seems to be bleeding at times 09/19/19: Continue tube feedings of 1 can every 3 hours Sleeps most of the time No more bloody stools Aspirin was restarted Two GI bleeds in less than 2 weeks precludes restarting Coumadin 09/21/19: No more bloody stools Bowels are now light brown Coccyx has alevan to help heal 09/22/19: TF working well when using 1 can at a time No pain reported Continue therapy 09/23/19: Maintain TF for now 1 can at at time Fall risk IRF protocol 09/24/19: Monitor orthostasis Monitor hemoglobin Appreciate Dietary input 09/25/19: Replace ROLANDO hose to limit orthostasis Increasing PEG tube fluid Noted bowel and bladder dysfunction today 09/26/19: TF to continue Increase therapy Monitor for pain and falls 09/27/19: TF continues and doing well No pain reported Fall risk 09/28/19: Needs NHP Monitor Lovenox complications 09/29/19: No bloody stools TF tolerated Needs NH 09/30/19: SNF admit TF maintained 10/01/19: Monitor coughing Labs stable Continue tube feedings shelter facility at discharge 10/02/19: custodial placement required Insomnia treatment the best we can 10/03/19: Keep bed at 45 degree angle to decrease aspiration Disposition of family next week 10/04/19: Family education training Discharge with daughter next week 10/05/19: Monitor loose stools Monitor for any bleeding in stools Slides out of chair easily 10/06/19: Monitor closely TF tolerated DC with family next week 10/07/19: Check labs in am Monitor for falls (1) CVA (cerebral vascular accident) (2) Atrial fibrillation with normal ventricular rate (3) CAD (coronary artery disease) (4) Stented coronary artery (5) Dysphagia (6) Left-sided weakness (7) At risk for aspiration (8) PEG (percutaneous endoscopic gastrostomy) status (9) On warfarin therapy (10) Left-sided neglect (11) Facial droop KENZIE MORENO DO Oct 07, 2019 09:59
--- NOTE | 2019-10-07 16:01 | Cardiology Progress Note ---
Cardiology SOAP Progress Note Subjective: no cardiac complaints. Objective: I&O/Vital Signs 10/07/19 10/07/19 10/07/19 06:00 07:58 09:08 Temp 36.5 Pulse 89 Resp 16 B/P (MAP) 137/73 (94) Pulse Ox 94 O2 Delivery Room Air Room Air Room Air 10/07/19 00:00 Intake Total 1350 ml Balance 1350 ml Constitutional: well-developed, well-nourished, other Respiratory: chest expansion is symmetric, chest is bilaterally symmetric, lungs clear to auscultation Cardiovascular: regular rate-rhythm, S1 and S2, systolic murmur Gastrointestional: soft, audible bowel sounds, other Extremities: no lower extremity edema bilateral Neurologic/Psychiatric: other (L hemiplegia, rightward gaze, monosyllabic speech, orientation difficult to determine) Skin: No rash on exposed areas, No ulcerations on exposed areas A/P: Assessment/Dx: Hematochezia on 09/15/19 (warfarin and ASA were held previously) being managed by Dr Simon and Dr Flores 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 Dias at [facility] Records from [facility] report h/o CVA x 3 (2008, 2013 x2) H/O PE in 2016 tx at [facility] Dysphagia - PEG tube in place HTN CAD - CABG x 4 vessel in February 2016 at [facility] by Dr. Regan - quadruple bypass with VILLATORO to LAD, saphenous vein graft to OM 1, saphenous vein T graft to D1, saphenous vein graft to LPDA. 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 Has been on warfarin H/O hematology w/u at [facility] which did not show hypercoagulable state H/O acute gangrenous cholecystitis for which he underwent cholecystectomy in July 2019 at [place], [place] Documented h/o prostate cancer Plan: Plan: On aspirin. Patient is also on Coumadin. Monitor labs Thank you for your consultation. Please call me if you have any questions. Cresencio Sweet MD, FACP, FACC, FSCAI, FHRS, CCDS Interventional Cardiology Cardiac Electrophysiology Vascular Medicine and Endovascular Interventions Miguel SWEET MD Oct 07, 2019 16:01
[2019-10-07 17:14] VITALS: BP 132/70
[2019-10-07] MEDS: ALPRAZolam 0.25 MG (XANAX) TAB PO PRN (20:32)
[2019-10-08] MEDS: SUCRALFATE 1 GM (CARAFATE) TAB PO SCH ×5 (00:45→23:56)
--- NOTE | 2019-10-08 05:48 | PM&R Progress Note ---
Subjective HPI/CC On Admission Date Seen by Provider: Oct 08, 2019 Time Seen by Provider: 09:00 Subjective/Events-last exam 10/08/19: Bowels moving regularly Family expecting discharge Tuesday No pain is reported 10/07/19: Patient sleeps most of the time No falls No pain reported 10/06/19: Patient doing well No major issues 2 BM's 10/05/19: Pt had three bowel movements last night No bleeding noted Slides out of the chair so he remains in bed 10/04/19: Family training next week Overall feels like he is doing pretty well Sleepy today No falls 10/03/19: DC to daughter's house next week Working hard during therapy More alert today 10/02/19: Family at the bedside Xanax and Melatonin were given to help him sleep but he didnt sleep well and that is periodic for him No pain is reported Participating in therapy halfway placement pending 10/01/19: Pt was coughing a bit but lungs are clear and he wasn't coughing with me Labs good, Hgb 11.7 No rectal bleeding Maintain on Lovenox for DVT prophylaxis 09/30/19: Patient feels ok TF tolerated Checked meds and labs No pain reported 09/29/19: Daughter at the bedside Patient has difficulty communicating No pain reported Needs NHP 09/28/19: Needs to go to [place] No pain reported Slight smear of blood with BM so may not even be able to tolerate Lovenox DVT PPx dose 09/27/19: Went from bed to chair without a Sarah-lift today More alert today Had a BM three days ago so will start laxatives No nausea or vomiting Tolerating tube feedings Lovenox 40 Mg started for DVT prophylaxis He just can't seem to tolerate the therapeutic dose for AFIB because of GI bleeds 09/26/19: Insomnia much improved he slept very well last night Bowels are moving Tube feedings are tolerated since it is only one can at a time No falls Appears to be more motivated today 09/25/19: BP remains a little bit low, will replace ROLANDO hose Bowel and bladder incontinence noted today Peg tub will be utilized for increased fluid intake 09/24/19: Holding Lopressor due to orthostasis during PT today BP 125/70 after orthostasis episode resolved No nausea or vomiting Regular rhythm on exam 09/23/19: Tolerating TF well Lethargic is chronic No pain reported 09/22/19: BM yesterday Tolerating TF well No pain reported 09/21/19: Pt more talkative today No more bloody stools Two bowel movements last night were brown Decubitus ulcer on coccyx being monitored and managed 09/20/19: Pt sleeping most of the time Participating in therapy Tube feedings of one can every three hours is working a lot better for him, he is tolerating it better No more bloody stools Cardiology restarted Aspirin but Coumadin will continue to be held because he has had two GI bleeds in the past two weeks and cant withstand a colonoscopy prep Very complex case 09/19/19: Pt sleeps most of the time Will discuss disposition, I doubt any recovery potential Overall needs probably a half-way for long-term care 09/18/19: Insomnia is an issue Worked with PT today but seems to take a lot of naps during the day which disrupts the nighttime sleeping No pain is reported 09/17/19: Pt sleeps most of the time No major changes No bloody stools Off of Lovenox, Coumadin and Aspirin Second GI bleed in the last few weeks 09/16/19: No bloody stools today Hgb stable 10.3 Is not strong enough to undergo C-scope prep Dr Flores saw him this morning Holding ASA Lovenox Coumadin Had GI at [facility] also Decreased cognition 09/15/19: Patient had been doing pretty well when I rounded No more nausea and vomiting like yesterday Tube feeding was restarted slowly I stopped the Clinimix since tube feedings were started N.p.o. 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 Flores general surgery was consulted and checked hemoglobin and hematocrit. 09/14/19: Had nausea and vomiting all last night Needs IV fluids gently so we'll start that today Urinary incontinence noted No fecal incontinence Holding tube feedings for right now Barium swallow today at 11:30 INR 1.4 will increase dose and provide Lovenox 09/13/19: Patient doing pretty well today Sleeping currently Therapy worked with him today Modified Barium Swallow scheduled Hemoglobin 9.6 Disoriented at times Bowels moved yesterday Conferred with RN Reviewed Therapy notes Checked Meds and Labs Review of Systems General: Fatigue, Malaise Neurological: Weakness Objective Exam Vital Signs Vital Signs Date Time Temp Pulse Resp B/P (MAP) Pulse Ox O2 Delivery O2 Flow Rate FiO2 10/08/19 18:55 Room Air 10/08/19 18:52 95 10/08/19 16:04 36.8 73 16 133/75 (94) Capillary Refill : Less Than 3 SecondsLess Than 3 Seconds General Appearance: No Apparent Distress, WD/WN, Chronically ill HEENT: PERRL/EOMI, Normal ENT Inspection, Pharynx Normal Neck: Full Range of Motion, Normal Inspection, Non Tender, Supple, Carotid Br uit Respiratory: Chest Non Tender, Lungs Clear, Normal Breath Sounds, No Accessory Muscle Use, No Respiratory Distress Cardiovascular: No Edema, No Gallop, No JVD, No Murmur, Normal Peripheral Pulses, Irregularly Irregular Gastrointestinal: Normal Bowel Sounds, No Organomegaly, No Pulsatile Mass, Non Tender, Soft Back: Normal Inspection, No CVA Tenderness, No Vertebral Tenderness Extremity: Normal Capillary Refill, Normal Inspection, Normal Range of Motion, Non Tender, No Calf Tenderness, Pedal Edema Neurologic/Psychiatric: Alert, Oriented x3, Normal Mood/Affect, reservationist II-XII Norm as Tested, Aphasia, Facial Droop, Motor Weakness Skin: Normal Color, Warm/Dry Lymphatic: No Adenopathy Results/Procedures Lab Laboratory Tests 10/08/19 05:54 Patient resulted labs reviewed. FIM Transfers Therapy Code Descriptions/Definitions Functional [place] Measure: 0=Not Assessed/NA 4=Minimal Assistance 1=Total Assistance 5=Supervision or Setup 2=Maximal Assistance 6=Modified [place] 3=Moderate Assistance 7=Complete IndependenceSCALE: Activities may be completed with or without assistive devices. 2-Oqysmqexxz-uzqiyhu completes the activity by him/herself with no assistance from a helper. 5-Set-up or Clean-up Assistance-helper sets up or cleans up; patient completes activity. [place] assists only prior to or following the activity. 4-Supervision or Touching Assistance-helper provides verbal cues and/or touching/steadying and/or contact guard assistance as patient completes activity. Assistance may be provided throughout the activity or intermittently. 3-Partial/Moderate Assistance-helper does LESS THAN HALF the effort. Gepp lifts, holds or supports trunk or limbs, but provides less than half the effort. 2-Substantial/Maximal Assistance-helper does MORE THAN HALF the effort. Gepp lifts or holds trunk or limbs and provides more than half the effort. 3-Nruxpaiwf-mgrssv does ALL the effort. Patient does none of the effort to complete the activity. Or, the assistance of 2 or more helpers is required for the patient to complete the activity. If activity was not attempted, code reason: 7-Patient Refused. 9-Not Applicable-not attempted and the patient did not perform the activity before the current illness, exacerbation or injury. 10-Not Attempted due to Environmental Limitations-(lack of equipment, weather restraints, etc.). 88-Not Attempted due to Medical Conditions or Safety Concerns. Roll Left to Right (QC): 3 Sit to Lying (QC): 3 Sit to Stand (QC): 2 Chair/Tfk-ih-Wstmp Xfer(QC): 2 Car Transfer (QC): 1 Gait Training Does the Patient Walk?: No and Walking Goal NOT indicated Walk 10 feet (QC): 88 Walk 50 ft with 2 Turns(QC): 88 Walk 150 ft (QC): 88 Walking 10ft/uneven surface-QC: 88 Wheelchair Training Does the Pt Use a Wheelchair?: Yes Distance: 150'x2 Wheel 50 ft with 2 turns (QC): 4 Wheel 150 ft (QC): 4 Type of Wheelchair: Manual Stair Training 1 Step (curb) (QC): 88 4 Steps (QC): 88 12 Steps (QC): 88 Balance Picking up an Object (QC): 88 ADL-Treatment Eating (QC): 88 Oral Hygiene (QC): 5 (Set up required then pt is able to complete oral hygiene by self.) Bathing Location: L Arm, L Upper Leg, R Upper Leg, Chest, Abdomen Shower/Bathe Self (QC): 1 Upper Body Dressing (QC): 3 Lower Body Dressing (QC): 1 On/Off Footwear (QC): 2 Toileting Hygiene (QC): 1 Toilet Transfer (QC): 1 Assessment/Plan Assessment and Plan Assess & Plan/Chief Complaint Assessment: CVA Left sided weakness Left sided neglect PEG tube status Dysphagia Aspiration hx with PNA CAD AF Coumadin treatment GIB 09/14/19 Plan: IRF protocol ST to work on dysphagia TF to be maintained Coumadin treatment Cardiology evaluation 09/13/19: Continue aggressive treatment Barium Swallow Monitor Hemoglobin 09/14/19: Give gentle IV fluids Increase INR with Coumadin with Lovenox bridge Barium swallow today 09/15/2019: Monitor GI bleed Hold Coumadin and Lovenox and aspirin Hold tube feedings Consult general surgery for endoscopies Maintain n.p.o. status due to aspiration risk 09/16/19: Monitor Hgb NPO Aspiration risk TF gently 09/17/19: No major changes Sleeping most of the time Stay off blood thinners due to second GI bleed 09/18/19: Insomnia treatment Continue aggressive physical therapy 09/19/19: Disposition will be discussed in team conference Tube feedings are tolerated well No more bloody stools Scrotum seems to be bleeding at times 09/19/19: Continue tube feedings of 1 can every 3 hours Sleeps most of the time No more bloody stools Aspirin was restarted Two GI bleeds in less than 2 weeks precludes restarting Coumadin 09/21/19: No more bloody stools Bowels are now light brown Coccyx has alevan to help heal 09/22/19: TF working well when using 1 can at a time No pain reported Continue therapy 09/23/19: Maintain TF for now 1 can at at time Fall risk IRF protocol 09/24/19: Monitor orthostasis Monitor hemoglobin Appreciate Dietary input 09/25/19: Replace ROLANDO hose to limit orthostasis Increasing PEG tube fluid Noted bowel and bladder dysfunction today 09/26/19: TF to continue Increase therapy Monitor for pain and falls 09/27/19: TF continues and doing well No pain reported Fall risk 09/28/19: Needs NHP Monitor Lovenox complications 09/29/19: No bloody stools TF tolerated Needs NH 09/30/19: SNF admit TF maintained 10/01/19: Monitor coughing Labs stable Continue tube feedings detention facility at discharge 10/02/19: halfway placement required Insomnia treatment the best we can 10/03/19: Keep bed at 45 degree angle to decrease aspiration Disposition of family next week 10/04/19: Family education training Discharge with daughter next week 10/05/19: Monitor loose stools Monitor for any bleeding in stools Slides out of chair easily 10/06/19: Monitor closely TF tolerated DC with family next week 10/07/19: Check labs in am Monitor for falls 10/08/19: Discharge is planned for Tuesday with family Monitor blood pressure Continue current treatment (1) CVA (cerebral vascular accident) Qualifiers: Qualified Codes: I63.9 - Cerebral infarction, unspecified (2) Atrial fibrillation with normal ventricular rate (3) CAD (coronary artery disease) (4) Stented coronary artery (5) Dysphagia (6) Left-sided weakness (7) At risk for aspiration (8) PEG (percutaneous endoscopic gastrostomy) status (9) On warfarin therapy (10) Left-sided neglect (11) Facial droop KENZIE MORENO DO Oct 08, 2019 05:48
[2019-10-08 06:00] VITALS: BP 119/57
[2019-10-08] MEDS: LEVOTHYROXINE 75 MCG (LEVOTHROID) TABLET PO SCH (06:00)
[2019-10-08 06:28] LABS: BASOPHILS % (AUTO) 1 % (0-10); EOSINOPHILS # (AUTO) 0.3 10^3/uL (0.0-0.3); EOSINOPHILS % (AUTO) 4 % (0-10); HEMATOCRIT 32 % (40-54); HEMOGLOBIN 10.7 G/DL (13.3-17.7); LYMPHOCYTES # (AUTO) 1.1 X 10^3 (1.0-4.0); LYMPHOCYTES % (AUTO) 17 % (12-44); MEAN CORPUSCULAR HEMOGLOBIN 30 PG (25-34); MEAN CORPUSCULAR HGB CONC 33 G/DL (32-36); MEAN CORPUSCULAR VOLUME 90 FL (80-99); MEAN PLATELET VOLUME 8.7 FL (7.4-10.4); MONOCYTES # (AUTO) 0.7 X 10^3 (0.0-1.0); MONOCYTES % (AUTO) 11 % (0-12); NEUTROPHILS # (AUTO) 4.4 X 10^3 (1.8-7.8); NEUTROPHILS % (AUTO) 67 % (42-75); PLATELET COUNT 468 10^3/uL (130-400); RED CELL DISTRIBUTION WIDTH 16.9 % (10.0-14.5); WHITE BLOOD COUNT 6.5 10^3/uL (4.3-11.0)
[2019-10-08 06:49] LABS: ALBUMIN 3.1 GM/DL (3.2-4.5); CHLORIDE 105 MMOL/L (98-107); POTASSIUM 4.2 MMOL/L (3.6-5.0); SODIUM 135 MMOL/L (135-145)
[2019-10-08 06:51] LABS: GLUCOSE 99 MG/DL (70-105); TOTAL PROTEIN 6.6 GM/DL (6.4-8.2)
[2019-10-08 06:53] LABS: BILIRUBIN,TOTAL 0.2 MG/DL (0.1-1.0); CARBON DIOXIDE 20 MMOL/L (21-32)
[2019-10-08 06:55] LABS: ALKALINE PHOSPHATASE 62 U/L (40-136); GFR ESTIMATED > 60
[2019-10-08 06:56] LABS: BUN/CREATININE RATIO 20
[2019-10-08 06:58] LABS: ALANINE AMINOTRANSFERASE 26 U/L (0-55)
--- NOTE | 2019-10-08 09:14 | Speech Therapy Daily Note ---
Speech Daily Progress Note Subjective Date Seen by Provider: Oct 08, 2019 Time Seen by Provider: 00:30 Patient was resting in his bed watching television when I entered his room. Objective Patient completed a series of q/a related to his daily needs upon his return home with 70% given max cues and/or repetition. Assessment Assessment Current Status: Fair Progress Treatment Plan Continue Plan of Care Speech Short Term Goals Short Term Goals Short Term Goals 1) Patient will complete expressive language exercises at 90% or greater with minimal cues. 2) Patient will complete OME x10 with 90% or greater with minimal cues. 3) Patient will complete oral trials with 90% or greater without s/s of aspiration. Speech Custodial Goals Custodial Goals Patient will improve speech production for effective communication of his wants/needs. Patient will maintain adequate nutrition/hydration via PEG and/or oral intake. Speech-Plan Patient/Family Goals Patient/Family Goals: Patient is scheduled to return home with family and home health tomorrow. Treatment Plan Speech Therapy Treatment Plan: Continue Plan of Care Treatment Duration: Oct 10, 2019 Frequency: 4 times per week (Patient will receive skilled ST 4-5x per week) Estimated Hrs Per Day: .5 hour per day Rehab Potential: Poor Barriers to Learning: Patient's affects of his CVA, cognitive deficits Pt/Family Agrees to Plan: Yes Safety Risks/Education Teaching Recipient: Patient Teaching Methods: Demonstration, Discussion Response to Teaching: Verbalize Understanding, Return Demonstration, Reinforcement Needed Education Topics Provided: Continued safety and communication of wants/needs upon his return home Time Speech Therapy Time In: 09:00 Speech Therapy Time Out: 09:30 Total Billed Time: 30 Billed Treatment Time 1, SLTS No QUALITY CODES: UNDERSTANDING VERBAL CONTENT: 3 EXPRESSION OF WANTS/NEEDS: 3 INTERVIEW OF MENTAL STATUS: YES REPETITION OF 3 WORDS: 3 TEMPORAL ORIENTATION: YEAR: CORRECT, MONTH: NOT CORRECT, DAY: NOT CORRECT RECALL SOCK: NO, COLOR: NO, BED: NOT MENTAL RECALL ABILITY: THAT [facility] Oct 08, 2019 09:14
[2019-10-08] MEDS: SENNA W/DOCUSATE (SENOKOT S) TABLET PO SCH ×2 (09:32→20:34)
[2019-10-08] MEDS: LACTOBACILLUS ACIDOPHILUS (PROBIOTIC) CAPSULE PEG SCH ×2 (09:32→20:33)
[2019-10-08] MEDS: DOCUSATE SODIUM 100 MG (COLACE) CAP PO SCH ×2 (09:32→20:33)
[2019-10-08] MEDS: ASPIRIN 81 MG CHEW (CHILDREN'S ASA) PO SCH (09:32)
[2019-10-08] MEDS: polyethylene glycoL POWDER 17 GM (MIRALAX) PACK PO SCH ×2 (09:33→20:34)
[2019-10-08] MEDS: ENOXAPARIN 40 MG/0.4 ML (LOVENOX) SYR SC SCH (09:35)
[2019-10-08] MEDS: PANTOPRAZOLE 2 MG/ML LIQUID 200 ML (PROTONIX) PEG SCH ×6 (09:37→20:33)
[2019-10-08] MEDS: ONDANSETRON 4 MG (ZOFRAN) ORAL DISSOLVE TAB PO PRN (11:42)
--- NOTE | 2019-10-08 11:47 | Occupational Ther Daily Note ---
OT Current Status-Daily Note Subjective Pt alert, lying in bed. Agreed to taking a shower. Pain Location: No Pain Reported Location Body Site: Back Comment: Pt did not rate pain. Mental Status/Objective Patient Orientation: Person ADL-Treatment Pt agreeable to shower. Pt supine to EOB, mod assist. Max assist x2 for SPT from EOB to w/c. Pt then taken to shower. Pt then sit-stand from w/c to doff briefs and switch out chair with cut out shower chair, due to pt leaning and pushing required max assist when standing. With verbal cues and 30 second delayed response, pt was able to wash L arm, chest, abdomen, R and L upper leg. Required assist to wash R arm and buttocks. Assist to rinse and dry. Pt requires verbal and physical cues to sit upright during task. Pt sit-stand with max assist x2 to switch to w/c. Pt donned shirt, assist to thread L and R arm, pt able to pull down over head. Assist to thread feet and legs into briefs and pants. Pt then sit-stand with max assist x2 to cleanse buttocks due to BM. Pt beginning to feel fatigued and needed to sit down, attempted 4x's to hike pants over hips before task was completed. Max A to don/doff footwear. Pt is incontinent of bowel/bladder, dependent. Pt has transferred to [facility] to complete toileting during rehab stay and required assistance to maintain safe sitting, dependent for toilet transfer and cleansing. Pt has completed oral care and requires only set up. Therapy Code Descriptions/Definitions Functional [place] Measure: 0=Not Assessed/NA 4=Minimal Assistance 1=Total Assistance 5=Supervision or Setup 2=Maximal Assistance 6=Modified [place] 3=Moderate Assistance 7=Complete IndependenceSCALE: Activities may be completed with or without assistive devices. 2-Mbcvytayxm-gnfqqwi completes the activity by him/herself with no assistance from a helper. 5-Set-up or Clean-up Assistance-helper sets up or cleans up; patient completes activity. [place] assists only prior to or following the activity. 4-Supervision or Touching Assistance-helper provides verbal cues and/or touching/steadying and/or contact guard assistance as patient completes activity. Assistance may be provided throughout the activity or intermittently. 3-Partial/Moderate Assistance-helper does LESS THAN HALF the effort. [place] lifts, holds or supports trunk or limbs, but provides less than half the effort. 2-Substantial/Maximal Assistance-helper does MORE THAN HALF the effort. [place] lifts or holds trunk or limbs and provides more than half the effort. 9-Zkbdsyatj-qbpcir does ALL the effort. Patient does none of the effort to complete the activity. Or, the assistance of 2 or more helpers is required for the patient to complete the activity. If activity was not attempted, code reason: 7-Patient Refused. 9-Not Applicable-not attempted and the patient did not perform the activity before the current illness, exacerbation or injury. 10-Not Attempted due to Environmental Limitations-(lack of equipment, weather restraints, etc.). 88-Not Attempted due to Medical Conditions or Safety Concerns. Eating (QC): 88 (PEG tube) Oral Hygiene (QC): 5 Shower/Bathe Self (QC): 1 Upper Body Dressing (QC): 3 Lower Body Dressing (QC): 1 On/Off Footwear: 2 Toileting Hygiene (QC): 1 Toilet Transfer (QC): 1 Other Treatment OT/PT co-treat ([id number]), skills of 2 clinicians required for neuromuscular retraining to increase pt's ability to complete functional sitting and standing for daily functional tasks. PT working on sitting balance, transfers and standing. OT working on positioning L UE for wt bearing and ergonomically correct L shldr placement during sitting, transfers and standing. See PT notes for standing and transfer progress. No active movement noted in pt's L UE. Subluxation noted in pt's L UE, positioning with pillows and sling applied to decrease subluxation during tasks. After therapy, pt left in care of PT. All needs met. OT Short Term Goals Short Term Goals Time Frame: Sep 19, 2019 Shower/bathe self: 2 Upper body dressin Lower body dressin OT Laundry Operator Finishing Goals Laundry Operator Finishing Goals Time Frame: Oct 03, 2019 Eating (QC): 4 (not met) Oral Hygiene (QC): 4 (met) Toileting Hygiene (QC): 3 (not met) Shower/Bathe Self (QC): 3 (not met) Upper Body Dressing (QC): 3 (met) Lower Body Dressing (QC): 2 (not met) On/Off Footwear (QC): 2 (met) Additional Goals: 1-Demonstrate ADL Tasks, 2-Verbalize Understanding, 3- ImproveStrength/Aliyah 1=Demonstrate adherence to instructed precautions during ADL tasks. 2=Patient will verbalize/demonstrate understanding of assistive devices/modifications for ADL. 3=Patient will improve strength/tolerance for activity to enable patient to perform ADL's. OT Education/Plan Problem List/Assessment Assessment: Decreased Activ Tolerance, Decreased Safety Aware, Decreased UE Strength, Dependent Transfers, Impaired Bed Mobility, Impaired Cognition, Impaired Coordination, Impaired Funct Balance, Impaired I ADL's, Impaired Self- Care Skills, Restricted Funct UE ROM, Visual-Perceptual Deficit Discharge Recommendations Plan/Recommendations: Continue POC Treatment Plan/Plan of Care Patient would benefit from OT for education, treatment and training to promote independence in ADL's, mobility, safety and/or upper extremity function for ADL's. Plan of Care: ADL Retraining, Caregiver Training, Functional Mobility, Group Exercise/Act as Ind, Orthotic Fitting/Training, UE Funct Exercise/Act, UE Neuromus Re-Ed/Coord, Visual/Perceptual Retrain, W/C Management Training Treatment Duration: Oct 03, 2019 Frequency: At least 5 of 7 days/Wk (IRF) Estimated Hrs Per Day: 1.5 hours per day Agreement: Yes Rehab Potential: Poor Time/GCodes Start Time: 10:00 Stop Time: 11:15 Total Time Billed (hr/min): 75 Billed Treatment Time 1 visit-ADL 4 (60 min) FA 1 (15 min) co-treat with PT 15 min ([id number]), Individual 60 min ([id number]) CALLIE LARIOS Oct 08, 2019 11:47
--- NOTE | 2019-10-08 12:39 | Physical Therapy Daily Note ---
PT Daily Note-Current Subjective Patient in WC in therapy gym pre tx, agrees to PT, no complaints of pain, will be co-treating with OT for part of tx due to poor patient mobility, strength, endurance, sitting and standing balance, the need to coordinate UE and LE during activity. Appearance Patient in recliner post tx with nurse call, phone, tray, all needs met, legs elevated. Mental Status Patient Orientation: Person, [place] Transfers SCALE: Activities may be completed with or without assistive devices. 0-Jzvvewszxi-obcmqvj completes the activity by him/herself with no assistance from a helper. 5-Set-up or Clean-up Assistance-helper sets up or cleans up; patient completes activity. [place] assists only prior to or following the activity. 4-Supervision or Touching Assistance-helper provides verbal cues and/or touching/steadying and/or contact guard assistance as patient completes ac tivity. Assistance may be provided throughout the activity or intermittently. 3-Partial/Moderate Assistance-helper does LESS THAN HALF the effort. [place] lifts, holds or supports trunk or limbs, but provides less than half the effort. 2-Substantial/Maximal Assistance-helper does MORE THAN HALF the effort. [place] lifts or holds trunk or limbs and provides more than half the effort. 5-Graetvxqv-wqfuif does ALL the effort. Patient does none of the effort to complete the activity. Or, the assistance of 2 or more helpers is required for the patient to complete the activity. If activity was not attempted, code reason: 7-Patient Refused. 9-Not Applicable-not attempted and the patient did not perform the activity before the current illness, exacerbation or injury. 10-Not Attempted due to Environmental Limitations-(lack of equipment, weather restraints, etc.). 88-Not Attempted due to Medical Conditions or Safety Concerns. Sit to Stand (QC): 2 Chair/Vnh-bh-Ekuzp Xfer(QC): 2 Weight Bearing Full Weight Bearing Full Weight Bearing Wheelchair Training Does the Pt Use a Wheelchair?: Yes Wheel 50 ft with 2 turns (QC): 3 Wheel 150 ft (QC): 3 300', 120', min assist, cues for direction and safety, uses right foot and arm to propel Exercises manually resisted right side leg press 3 sets of 10 Neuromuscular practiced sitting balance, leaning to each side and forward and back, pushing forward and back Treatments PT worked on transfers, WC mobility, functional strengthening, balance training, OT worked on balance training Assessment Current Status: Poor Progress Patient became nauseated during tx, coughing constantly, nurse notified and brought him nausea meds PT Short Term Goals Short Term Goals Time Frame: Sep 19, 2019 Roll Left & Right: 2 Sit to lyin Lying to sitting on side of be: 2 Sit to stand: 2 Chair/kjm-ib-ejjkb transfer: 2 Wheel 50ft w/2 turns: 2 Wheel 150 feet: 2 PT Blocker Hand Goals Blocker Hand Goals PT Blocker Hand Goals Time Frame: Oct 03, 2019 Roll Left & Right (QC): 3 Sit to Lying (QC): 3 Lying-Sitting on Side/Bed(QC): 3 Sit to Stand (QC): 3 Chair/Vqn-im-Phazq Xfer(QC): 3 Toilet Transfer (QC): 3 Car Transfer (QC): 3 Does the Patient Walk: No and Walking Goal NOT indicated Walk 10 feet (QC): 88 Walk 50ft with 2 Turns (QC): 88 Walk 150 ft (QC): 88 Walking 10ft on Uneven Surface: 88 1 Step (curb) (QC): 88 4 Steps (QC): 88 12 Steps (QC): 88 Picking up an Object (QC): 88 Wheel 50 feet with 2 turns (QC: 3 Wheel 150 feet: 3 PT Plan Problem List Problem List: Activity Tolerance, Functional Strength, Safety, Balance, Gait, Transfer, Bed Mobility, ROM Treatment/Plan Treatment Plan: Continue Plan of Care Treatment Plan: Bed Mobility, Education, Functional Activity Aliyah, Functional Strength, Group Therapy, Gait, Safety, Therapeutic Exercise, Transfers Treatment Duration: Oct 03, 2019 Frequency: At least 5 of 7 days/Wk (IRF) Estimated Hrs Per Day: 1.5 hours per day Patient and/or Family Agrees t: Yes Safety Risks/Education Patient Education: Transfer Techniques, Correct Positioning, W/C Management, Safety Issues Teaching Recipient: Patient Teaching Methods: Demonstration, Discussion Response to Teaching: Reinforcement Needed Time/GCodes Time In: 1100 Time Out: 1200 Total Billed Treatment Time: 60 Total Billed Treatment 1 visit NM 15' EX 10' FA 35' RUY MCGRATH PT Oct 08, 2019 12:39
--- NOTE | 2019-10-08 14:13 | Physical Therapy Daily Note ---
PT Daily Note-Current Subjective Pt presents slouched in recliner in room. Pt agrees to PT. Pt reports no pain. Appearance After PT session, pt adjusted to sit farther back in recliner to reduce slouch ing. Pt has assess to tray, call button, and all needs have been met. Mental Status Patient Orientation: Person, Eyes Open, Situation, Mumbles Transfers SCALE: Activities may be completed with or without assistive devices. 4-Lfmiorlitj-cowkzfr completes the activity by him/herself with no assistance from a helper. 5-Set-up or Clean-up Assistance-helper sets up or cleans up; patient completes activity. [place] assists only prior to or following the activity. 4-Supervision or Touching Assistance-helper provides verbal cues and/or touching/steadying and/or contact guard assistance as patient completes activity. Assistance may be provided throughout the activity or intermittently. 3-Partial/Moderate Assistance-helper does LESS THAN HALF the effort. [place] lifts, holds or supports trunk or limbs, but provides less than half the effort. 2-Substantial/Maximal Assistance-helper does MORE THAN HALF the effort. [place] lifts or holds trunk or limbs and provides more than half the effort. 3-Filxkqqpf-cezvmo does ALL the effort. Patient does none of the effort to compl ete the activity. Or, the assistance of 2 or more helpers is required for the patient to complete the activity. If activity was not attempted, code reason: 7-Patient Refused. 9-Not Applicable-not attempted and the patient did not perform the activity before the current illness, exacerbation or injury. 10-Not Attempted due to Environmental Limitations-(lack of equipment, weather restraints, etc.). 88-Not Attempted due to Medical Conditions or Safety Concerns. Weight Bearing Full Weight Bearing Full Weight Bearing Exercises Seated Therapy Exercises: Ankle pumps, Long arc quads, Hip flexion Seated Reps: 20 Treatments L PROM; R LE seated strengthening Assessment Current Status: Fair Progress Pt requires max assistance to adjust seated position. Pt struggles to differentiate LE exercise; pt tends to flex hip and knee simultaneously. PT Short Term Goals Short Term Goals Time Frame: Sep 19, 2019 Roll Left & Right: 2 Sit to lyin Lying to sitting on side of be: 2 Sit to stand: 2 Chair/bye-yz-iscvv transfer: 2 Wheel 50ft w/2 turns: 2 Wheel 150 feet: 2 PT Senior Living Goals Color Receiver Goals PT Senior Living Goals Time Frame: Oct 03, 2019 Roll Left & Right (QC): 3 Sit to Lying (QC): 3 Lying-Sitting on Side/Bed(QC): 3 Sit to Stand (QC): 3 Chair/Czk-cv-Tbfit Xfer(QC): 3 Toilet Transfer (QC): 3 Car Transfer (QC): 3 Does the Patient Walk: No and Walking Goal NOT indicated Walk 10 feet (QC): 88 Walk 50ft with 2 Turns (QC): 88 Walk 150 ft (QC): 88 Walking 10ft on Uneven Surface: 88 1 Step (curb) (QC): 88 4 Steps (QC): 88 12 Steps (QC): 88 Picking up an Object (QC): 88 Wheel 50 feet with 2 turns (QC: 3 Wheel 150 feet: 3 PT Plan Problem List Problem List: Activity Tolerance, Functional Strength, Safety, Balance, Gait, Transfer, Bed Mobility, ROM Treatment/Plan Treatment Plan: Continue Plan of Care Treatment Plan: Bed Mobility, Education, Functional Activity Aliyah, Functional Strength, Group Therapy, Gait, Safety, Therapeutic Exercise, Transfers Treatment Duration: Oct 03, 2019 Frequency: At least 5 of 7 days/Wk (IRF) Estimated Hrs Per Day: 1.5 hours per day Patient and/or Family Agrees t: Yes Safety Risks/Education Patient Education: Correct Positioning, Safety Issues Teaching Recipient: Patient Teaching Methods: Demonstration, Discussion Response to Teaching: Reinforcement Needed Time/GCodes Time In: 1315 Time Out: 1330 Total Billed Treatment Time: 15 Total Billed Treatment 1 visit EX RUY MCLEOD PT Oct 08, 2019 14:13
--- NOTE | 2019-10-08 15:23 | Cardiology Progress Note ---
Cardiology SOAP Progress Note Subjective: No cardiac complaints. Objective: I&O/Vital Signs 10/08/19 10/08/19 10/08/19 06:00 09:00 10:10 Temp 36.2 Pulse 95 Resp 20 B/P (MAP) 119/57 (77) Pulse Ox 95 O2 Delivery Room Air Room Air Room Air 10/08/19 00:00 Intake Total 1350 ml Balance 1350 ml Constitutional: well-developed, well-nourished, other Respiratory: chest expansion is symmetric, chest is bilaterally symmetric, lungs clear to auscultation Cardiovascular: regular rate-rhythm, S1 and S2, systolic murmur Gastrointestional: soft, audible bowel sounds, other Extremities: no lower extremity edema bilateral Neurologic/Psychiatric: other (L hemiplegia, rightward gaze, monosyllabic speech, orientation difficult to determine) Skin: No rash on exposed areas, No ulcerations on exposed areas Results/Procedures: Labs Laboratory Tests 10/08/19 05:54: White Blood Count 6.5, Red Blood Count 3.56L, Hemoglobin 10.7L, Hematocrit 32L, Mean Corpuscular Volume 90, Mean Corpuscular Hemoglobin 30, Mean Corpuscular Hemoglobin Concent 33, Red Cell Distribution Width 16.9H, Platelet Count 468H, Mean Platelet Volume 8.7, Neutrophils (%) (Auto) 67, Lymphocytes (%) (Auto) 17, Monocytes (%) (Auto) 11, Eosinophils (%) (Auto) 4, Basophils (%) (Auto) 1, Neutrophils # (Auto) 4.4, Lymphocytes # (Auto) 1.1, Monocytes # (Auto) 0.7, Eosinophils # (Auto) 0.3, Basophils # (Auto) 0.0, Sodium Level 135, Potassium L evel 4.2, Chloride Level 105, Carbon Dioxide Level 20L, Anion Gap 10, Blood Urea Nitrogen 12, Creatinine 0.60, Estimat Glomerular Filtration Rate > 60, BUN/Creatinine Ratio 20, Glucose Level 99, Calcium Level 9.0, Corrected Calcium 9.7, Total Bilirubin 0.2, Aspartate Amino Transf (AST/SGOT) 31, Alanine Aminotransferase (ALT/SGPT) 26, Alkaline Phosphatase 62, Total Protein 6.6, Albumin 3.1L A/P: Assessment/Dx: Hematochezia on 09/15/19 (warfarin and ASA were held previously) being managed by Dr Simon and Dr Flores 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 Dias at [facility] Records from [facility] report h/o CVA x 3 (2008, 2013 x2) H/O PE in 2016 tx at [facility] Dysphagia - PEG tube in place HTN CAD - CABG x 4 vessel in February 2016 at [facility] by Dr. Regan - quadruple bypass with VILLATORO to LAD, saphenous vein graft to OM 1, saphenous vein T graft to D1, saphenous vein graft to LPDA. 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 Has been on warfarin H/O hematology w/u at [facility] which did not show hypercoagulable state H/O acute gangrenous cholecystitis for which he underwent cholecystectomy in July 2019 at [place], [place] Documented h/o prostate cancer Okay to discharge, follow-up with outpatient wound/ostomy nurse. Plan: Plan: On aspirin. Patient is also on Coumadin. Monitor labs Thank you for your consultation. Please call me if you have any questions. Cresencio Sweet MD, FACP, FACC, FSCAI, FHRS, CCDS Interventional Cardiology Cardiac Electrophysiology Vascular Medicine and Endovascular Interventions Miguel SWEET MD Oct 08, 2019 15:23
[2019-10-08] MEDS ORDERED: ACET325C7 PEG (15:45)
[2019-10-08] MEDS ORDERED: ENOX40DI8 SC (15:45)
[2019-10-08] MEDS ORDERED: ATOR80TA76 PEG (15:45)
[2019-10-08] MEDS ORDERED: ASPI-999 PEG (15:45)
[2019-10-08] MEDS ORDERED: OMEP1PAC5 PEG (15:45)
[2019-10-08] MEDS ORDERED: SCOP1PAT11 TD (15:45)
[2019-10-08] MEDS ORDERED: SUCR1ORA5 PO (15:45)
[2019-10-08] MEDS ORDERED: LEVO75TA PEG (15:45)
--- NOTE | 2019-10-08 15:47 | D/C HH Face to Face Order ---
D/C Face to Face Orders Reconcile Patient Problems Problems Reviewed?: Yes Instructions for Patient Home Health Patient Instructions/FollowUp: PCP 1 week Physician to follow Patient: PCP Discharge Diet for Home: Tube Feeding Patient Problems: CVA Dysphagia Tube feeding dependent Patient Data-Allergies,Ht & Wt Patient Allergies: Coded Allergies: No Known Drug Allergies (Unverified , 09/12/19) Home Health Need/Face to Face Date of Face to Face: Oct 08, 2019 Clinical Findings: Generalized weakness and fatigue, Muscle weakness, Unsteady gait I have seen Pt kqmq-aw-speh: Yes Discharged To: Home Diagnosis/Conditions: CVA Dysphagia Tube feeding dependent Patient is Homebound due to: CognItive deficits, [place] fall risk due to instabilty, Muscle weakness Homebound Status Due to the above stated illness, injury or surgical procedure (medical condition or diagnosis) and associated clinical findings, the patient is homebound because of his/her inability to leave home except with aid of a supportive device and/or person AND leaving the home requires a considerable and taxing effort or is medically contraindicated. Pt req the following assistanc: Walker, Wheelchair Home Health Nursing Orders Home Health Services Order: Nursing Services, Sandwich Artist-Evaluate & Treat, Physical Therapy-Evaluate & Treat, Speech Language-Evaluate & Treat Home Health Infusion Therapy Line Start Date: Sep 14, 2019 Certify Stmt I certify that this patient is under my care and that I, a nurse practitioner or a physician; a minister assistant working with me, had a face to face encounter that - meets the physician face to face encounter requirements with this patient as dated. KENIZE MORENO DO Oct 08, 2019 15:46
[2019-10-08] MEDS ORDERED: LACT-72 PEG (15:52)
[2019-10-08 16:04] VITALS: BP 133/75
[2019-10-08] MEDS: ALPRAZolam 0.25 MG (XANAX) TAB PO PRN (20:33)
[2019-10-08] MEDS: ACETAMINOPHEN 325 MG TABLET PO PRN (20:34)
[2019-10-09 05:30] VITALS: BP 135/69
[2019-10-09] MEDS: LEVOTHYROXINE 75 MCG (LEVOTHROID) TABLET PO SCH (06:42)
[2019-10-09] MEDS: SUCRALFATE 1 GM (CARAFATE) TAB PO SCH ×3 (06:42→17:51)
--- NOTE | 2019-10-09 09:04 | Physical Therapy Daily Note ---
PT Daily Note-Current Subjective Patient in WC pre tx, agrees to PT, already working with OT, has no complaints of pain, will be co-treating with OT due to poor patient mobility, strength, endurance, sitting and standing balance, the need to coordinate UE and LE during activity. Appearance Patient in recliner post tx with nurse call, phone, tray, all needs met. Mental Status Patient Orientation: Person, Unable to Assess, Non-Verbal/Aphasic, Eyes Open, [place] Transfers SCALE: Activities may be completed with or without assistive devices. 4-Yyxldcwvpx-jjgnyyx completes the activity by him/herself with no assistance from a helper. 5-Set-up or Clean-up Assistance-helper sets up or cleans up; patient completes activity. [place] assists only prior to or following the activity. 4-Supervision or Touching Assistance-helper provides verbal cues and/or touching/steadying and/or contact guard assistance as patient completes activity. Assistance may be provided throughout the activity or intermittently. 3-Partial/Moderate Assistance-helper does LESS THAN HALF the effort. [place] lifts, holds or supports trunk or limbs, but provides less than half the effort. 2-Substantial/Maximal Assistance-helper does MORE THAN HALF the effort. [place] lifts or holds trunk or limbs and provides more than half the effort. 6-Qfqnkjxrs-wadmni does ALL the effort. Patient does none of the effort to complete the activity. Or, the assistance of 2 or more helpers is required for the patient to complete the activity. If activity was not attempted, code reason: 7-Patient Refused. 9-Not Applicable-not attempted and the patient did not perform the activity before the current illness, exacerbation or injury. 10-Not Attempted due to Environmental Limitations-(lack of equipment, weather restraints, etc.). 88-Not Attempted due to Medical Conditions or Safety Concerns. Roll Left & Right (QC): 2 Sit to Lying (QC): 3 Lying to Sitting/Side of Bed(Q: 3 Sit to Stand (QC): 2 Chair/Tuc-xb-Cipwd Xfer(QC): 2 Toilet Transfer (QC): 2 Car Transfer (QC): 2 Patient performs rolling with max assist to the right side, min assist to the left, max assist supine <-> sit, mod assist supine <-> sit, max assist sit <-> stand and transfers, max assist car transfer. Patient practiced rolling x5 each side. Weight Bearing Full Weight Bearing Full Weight Bearing Gait Training Walk 10 feet (QC): 88 Walk 50 ft with 2 Turns(QC): 88 Walk 150 ft (QC): 88 Walking 10ft/uneven surface-QC: 88 Wheelchair Training Does the Pt Use a Wheelchair?: Yes Wheel 50 ft with 2 turns (QC): 3 Wheel 150 ft (QC): 3 Type of Wheelchair: Manual Patient can propel a manual WC 150' with min assist, he uses his right arm and foot to propel, needs almost constant cues to stay on task and for direction Stair Training 1 Step (curb) (QC): 88 4 Steps (QC): 88 12 Steps (QC): 88 Balance Picking up an Object (QC): 88 Exercises LLE PROM/stretching in all planes, patient has occasional spasms in left leg, increased muscle tone Neuromuscular sitting balance training, working on limits of stability and looking to neglect side (left), working on reaching for cones Treatments bed mobility and transfers, WC mobility, ROM, balance training Assessment Current Status: Poor Progress no change in mobility PT Short Term Goals Short Term Goals Time Frame: Sep 19, 2019 Roll Left & Right: 2 Sit to lyin Lying to sitting on side of be: 2 Sit to stand: 2 Chair/tuf-pt-qmagd transfer: 2 Wheel 50ft w/2 turns: 2 Wheel 150 feet: 2 PT Chcf Goals Precipitator Supervisor Goals PT Precipitator Supervisor Goals Time Frame: Oct 03, 2019 Roll Left & Right (QC): 3 Sit to Lying (QC): 3 Lying-Sitting on Side/Bed(QC): 3 Sit to Stand (QC): 3 Chair/Kgq-jq-Huevv Xfer(QC): 3 Toilet Transfer (QC): 3 Car Transfer (QC): 3 Does the Patient Walk: No and Walking Goal NOT indicated Walk 10 feet (QC): 88 Walk 50ft with 2 Turns (QC): 88 Walk 150 ft (QC): 88 Walking 10ft on Uneven Surface: 88 1 Step (curb) (QC): 88 4 Steps (QC): 88 12 Steps (QC): 88 Picking up an Object (QC): 88 Wheel 50 feet with 2 turns (QC: 3 Wheel 150 feet: 3 PT Plan Problem List Problem List: Activity Tolerance, Functional Strength, Safety, Balance, Gait, Transfer, Bed Mobility, ROM Treatment/Plan Treatment Plan: Continue Plan of Care Treatment Plan: Bed Mobility, Education, Functional Activity Aliyah, Functional Strength, Group Therapy, Gait, Safety, Therapeutic Exercise, Transfers Treatment Duration: Oct 03, 2019 Frequency: At least 5 of 7 days/Wk (IRF) Estimated Hrs Per Day: 1.5 hours per day Patient and/or Family Agrees t: Yes Safety Risks/Education Patient Education: Transfer Techniques, Correct Positioning, W/C Management, Safety Issues Teaching Recipient: Patient Teaching Methods: Demonstration, Discussion Response to Teaching: Reinforcement Needed Time/GCodes Time In: 0800 Time Out: 0900 Total Billed Treatment Time: 60 Total Billed Treatment 1 visit NM 30' [facility] 15' EX 15' RUY MCGRATH PT Oct 09, 2019 09:03
[2019-10-09] MEDS: SCOPOLAMINE 1.5 MG (TRANSDERM-SCOP) PATCH TD SCH (09:06)
[2019-10-09] MEDS: SCOPOLAMINE PATCH REMOVAL TP SCH (09:07)
[2019-10-09] MEDS: ENOXAPARIN 40 MG/0.4 ML (LOVENOX) SYR SC SCH (09:09)
[2019-10-09] MEDS: LACTOBACILLUS ACIDOPHILUS (PROBIOTIC) CAPSULE PEG SCH ×2 (09:09→21:16)
[2019-10-09] MEDS: polyethylene glycoL POWDER 17 GM (MIRALAX) PACK PO SCH ×2 (09:09→21:16)
[2019-10-09] MEDS: ASPIRIN 81 MG CHEW (CHILDREN'S ASA) PO SCH (09:09)
[2019-10-09] MEDS: SENNA W/DOCUSATE (SENOKOT S) TABLET PO SCH ×2 (09:11→21:16)
[2019-10-09] MEDS: DOCUSATE SODIUM 100 MG (COLACE) CAP PO SCH ×2 (09:11→21:17)
[2019-10-09] MEDS: PANTOPRAZOLE 2 MG/ML LIQUID 200 ML (PROTONIX) PEG SCH ×6 (09:12→21:19)
--- NOTE | 2019-10-09 09:14 | Occupational Ther Daily Note ---
OT Current Status-Daily Note Subjective Pt alert, lying in bed. Agreed to therapy. No c/o of pain. Mental Status/Objective Patient Orientation: Person, Place, Time, Situation Attachments: PEG Tube ADL-Treatment Co treat with PT (8:00-9:00) 2 skilled clinicians required for retraining neuromuscular, sitting balance, bed mobility, transfers and ADLs. PT focuses on transfers, sitting balance, and bed mobility. While OT focuses on functional transfers, sitting balance, and ADLs. Pt incontinent of bladder. Mod assist to roll pt to L side for cleansing jean-pierre. Max assist x2 to roll pt to R side to finish cleansing and don brief. Max assist x2 for donning pants and max assist to don socks. Pt supine to EOB with mod assist. SPT from EOB to w/c, assist x2. Pt taken to bathroom for oral hygiene, sitting at sink. After set up, pt able to complete oral care by self. Unable to communicate with OT when wanting to wash face. Pt then taken to gym. Therapy Code Descriptions/Definitions Functional [place] Measure: 0=Not Assessed/NA 4=Minimal Assistance 1=Total Assistance 5=Supervision or Setup 2=Maximal Assistance 6=Modified [place] 3=Moderate Assistance 7=Complete IndependenceSCALE: Activities may be completed with or without assistive devices. 8-Qovhgccarc-rpyyyyv completes the activity by him/herself with no assistance from a helper. 5-Set-up or Clean-up Assistance-helper sets up or cleans up; patient completes activity. [place] assists only prior to or following the activity. 4-Supervision or Touching Assistance-helper provides verbal cues and/or touc [place]/steadying and/or contact guard assistance as patient completes activity. Assistance may be provided throughout the activity or intermittently. 3-Partial/Moderate Assistance-helper does LESS THAN HALF the effort. [place] lifts, holds or supports trunk or limbs, but provides less than half the effort. 2-Substantial/Maximal Assistance-helper does MORE THAN HALF the effort. [place] lifts or holds trunk or limbs and provides more than half the effort. 6-Vhgpnokml-ppqrfw does ALL the effort. Patient does none of the effort to complete the activity. Or, the assistance of 2 or more helpers is required for the patient to complete the activity. If activity was not attempted, code reason: 7-Patient Refused. 9-Not Applicable-not attempted and the patient did not perform the activity before the current illness, exacerbation or injury. 10-Not Attempted due to Environmental Limitations-(lack of equipment, weather restraints, etc.). 88-Not Attempted due to Medical Conditions or Safety Concerns. Other Treatment After pt taken to gym, pt was transferred to [facility]. Pt reached for cones from midline and handed them to his R and L side. OT focused on maintaining midline position while PT was looking at pt's sitting balance. OT then performed 2 sets of 10 PROM while pt supine on mat, on pt's LUE to increase ROM for functional ADL. No movement noted. Pt completed 1 set of 10 self ROM for shoulder adduction. See PT notes for PROM on L LE and bed mobility. Pt was taken back to room. SPT from w/c to recliner with assist x2. After therapy, pt sitting in recliner. Call light/phone in reach. All needs met. OT Short Term Goals Short Term Goals Time Frame: Sep 19, 2019 Shower/bathe self: 2 Upper body dressin Lower body dressin OT Halfway Goals Bowling Ball Grader And Marker Goals Time Frame: Oct 03, 2019 Eating (QC): 4 (not met) Oral Hygiene (QC): 4 (met) Toileting Hygiene (QC): 3 (not met) Shower/Bathe Self (QC): 3 (not met) Upper Body Dressing (QC): 3 (met) Lower Body Dressing (QC): 2 (not met) On/Off Footwear (QC): 2 (met) Additional Goals: 1-Demonstrate ADL Tasks, 2-Verbalize Understanding, 3- ImproveStrength/Aliyah 1=Demonstrate adherence to instructed precautions during ADL tasks. 2=Patient will verbalize/demonstrate understanding of assistive devices/modifications for ADL. 3=Patient will improve strength/tolerance for activity to enable patient to perform ADL's. OT Education/Plan Problem List/Assessment Assessment: Decreased Activ Tolerance, Decreased Safety Aware, Decreased UE Strength, Dependent Transfers, Impaired Bed Mobility, Impaired Cognition, Impaired Coordination, Impaired Funct Balance, Impaired I ADL's, Impaired Self- Care Skills, Restricted Funct UE ROM, Visual-Perceptual Deficit Discharge Recommendations Plan/Recommendations: Continue POC Treatment Plan/Plan of Care Patient would benefit from OT for education, treatment and training to promote independence in ADL's, mobility, safety and/or upper extremity function for ADL's. Plan of Care: ADL Retraining, Caregiver Training, Functional Mobility, Group Exercise/Act as Ind, Orthotic Fitting/Training, UE Funct Exercise/Act, UE Neuromus Re-Ed/Coord, Visual/Perceptual Retrain, W/C Management Training Treatment Duration: Oct 03, 2019 Frequency: At least 5 of 7 days/Wk (IRF) Estimated Hrs Per Day: 1.5 hours per day Agreement: Yes Rehab Potential: Poor Time/GCodes Start Time: 07:45 Stop Time: 09:00 Total Time Billed (hr/min): 75 Billed Treatment Time 1 visit- ADL 2 (30 mins) NM 3 (45) Co-treat with PT 60 mins(800-900) individual 7:45-8:00(15 mins) CALLIE LARIOS Oct 09, 2019 09:14
--- NOTE | 2019-10-09 09:51 | PM&R Progress Note ---
Subjective HPI/CC On Admission Date Seen by Provider: Oct 09, 2019 Time Seen by Provider: 09:00 Subjective/Events-last exam 10/09/19: DC is planned tomorrow No issues Tolerating tube feedings Tylenol with Melatonin working very well for him at night 10/08/19: Bowels moving regularly Family expecting discharge Tuesday No pain is reported 10/07/19: Patient sleeps most of the time No falls No pain reported 10/06/19: Patient doing well No major issues 2 BM's 10/05/19: Pt had three bowel movements last night No bleeding noted Slides out of the chair so he remains in bed 10/04/19: Family training next week Overall feels like he is doing pretty well Sleepy today No falls 10/03/19: DC to daughter's house next week Working hard during therapy More alert today 10/02/19: Family at the bedside Xanax and Melatonin were given to help him sleep but he didnt sleep well and that is periodic for him No pain is reported Participating in therapy prison placement pending 10/01/19: Pt was coughing a bit but lungs are clear and he wasn't coughing with me Labs good, Hgb 11.7 No rectal bleeding Maintain on Lovenox for DVT prophylaxis 09/30/19: Patient feels ok TF tolerated Checked meds and labs No pain reported 09/29/19: Daughter at the bedside Patient has difficulty communicating No pain reported Needs NHP 09/28/19: Needs to go to [place] No pain reported Slight smear of blood with BM so may not even be able to tolerate Lovenox DVT PPx dose 09/27/19: Went from bed to chair without a Sarah-lift today More alert today Had a BM three days ago so will start laxatives No nausea or vomiting Tolerating tube feedings Lovenox 40 Mg started for DVT prophylaxis He just can't seem to tolerate the therapeutic dose for AFIB because of GI bleeds 09/26/19: Insomnia much improved he slept very well last night Bowels are moving Tube feedings are tolerated since it is only one can at a time No falls Appears to be more motivated today 09/25/19: BP remains a little bit low, will replace ROLANDO hose Bowel and bladder incontinence noted today Peg tub will be utilized for increased fluid intake 09/24/19: Holding Lopressor due to orthostasis during PT today BP 125/70 after orthostasis episode resolved No nausea or vomiting Regular rhythm on exam 09/23/19: Tolerating TF well Lethargic is chronic No pain reported 09/22/19: BM yesterday Tolerating TF well No pain reported 09/21/19: Pt more talkative today No more bloody stools Two bowel movements last night were brown Decubitus ulcer on coccyx being monitored and managed 09/20/19: Pt sleeping most of the time Participating in therapy Tube feedings of one can every three hours is working a lot better for him, he is tolerating it better No more bloody stools Cardiology restarted Aspirin but Coumadin will continue to be held because he has had two GI bleeds in the past two weeks and cant withstand a colonoscopy prep Very complex case 09/19/19: Pt sleeps most of the time Will discuss disposition, I doubt any recovery potential Overall needs probably a residential for long-term care 09/18/19: Insomnia is an issue Worked with PT today but seems to take a lot of naps during the day which disrupts the nighttime sleeping No pain is reported 09/17/19: Pt sleeps most of the time No major changes No bloody stools Off of Lovenox, Coumadin and Aspirin Second GI bleed in the last few weeks 09/16/19: No bloody stools today Hgb stable 10.3 Is not strong enough to undergo C-scope prep Dr Flores saw him this morning Holding ASA Lovenox Coumadin Had GI at [place] also Decreased cognition 09/15/19: Patient had been doing pretty well when I rounded No more nausea and vomiting like yesterday Tube feeding was restarted slowly I stopped the Clinimix since tube feedings were started N.p.o. 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 Flores general surgery was consulted and checked hemoglobin and hematocrit. 09/14/19: Had nausea and vomiting all last night Needs IV fluids gently so we'll start that today Urinary incontinence noted No fecal incontinence Holding tube feedings for right now Barium swallow today at 11:30 INR 1.4 will increase dose and provide Lovenox 09/13/19: Patient doing pretty well today Sleeping currently Therapy worked with him today Modified Barium Swallow scheduled Hemoglobin 9.6 Disoriented at times Bowels moved yesterday Conferred with RN Reviewed Therapy notes Checked Meds and Labs Review of Systems General: Fatigue, Malaise Neurological: Weakness Objective Exam Vital Signs Vital Signs Date Time Temp Pulse Resp B/P (MAP) Pulse Ox O2 Delivery O2 Flow Rate FiO2 10/09/19 17:09 Room Air 10/09/19 16:02 36.6 91 16 131/74 (93) 96 Capillary Refill : Less Than 3 SecondsLess Than 3 Seconds General Appearance: No Apparent Distress, WD/WN, Chronically ill HEENT: PERRL/EOMI, Normal ENT Inspection, Pharynx Normal Neck: Full Range of Motion, Normal Inspection, Non Tender, Supple, Carotid Brui t Respiratory: Chest Non Tender, Lungs Clear, Normal Breath Sounds, No Accessory Muscle Use, No Respiratory Distress Cardiovascular: No Edema, No Gallop, No JVD, No Murmur, Normal Peripheral Pulses, Irregularly Irregular Gastrointestinal: Normal Bowel Sounds, No Organomegaly, No Pulsatile Mass, Non Tender, Soft Back: Normal Inspection, No CVA Tenderness, No Vertebral Tenderness Extremity: Normal Capillary Refill, Normal Inspection, Normal Range of Motion, Non Tender, No Calf Tenderness, Pedal Edema Neurologic/Psychiatric: Alert, Oriented x3, Normal Mood/Affect, button buttonhole marker II-XII Norm as Tested, Aphasia, Facial Droop, Motor Weakness Skin: Normal Color, Warm/Dry Lymphatic: No Adenopathy Results/Procedures Lab Patient resulted labs reviewed. FIM Transfers Therapy Code Descriptions/Definitions Functional [place] Measure: 0=Not Assessed/NA 4=Minimal Assistance 1=Total Assistance 5=Supervision or Setup 2=Maximal Assistance 6=Modified [place] 3=Moderate Assistance 7=Complete IndependenceSCALE: Activities may be completed with or without assistive devices. 3-Yomwfscych-ryilocq completes the activity by him/herself with no assistance from a helper. 5-Set-up or Clean-up Assistance-helper sets up or cleans up; patient completes activity. [place] assists only prior to or following the activity. 4-Supervision or Touching Assistance-helper provides verbal cues and/or touching/steadying and/or contact guard assistance as patient completes a ctivity. Assistance may be provided throughout the activity or intermittently. 3-Partial/Moderate Assistance-helper does LESS THAN HALF the effort. [place] lifts, holds or supports trunk or limbs, but provides less than half the effort. 2-Substantial/Maximal Assistance-helper does MORE THAN HALF the effort. [place] lifts or holds trunk or limbs and provides more than half the effort. 1-Jgbjwnsww-ehflcb does ALL the effort. Patient does none of the effort to complete the activity. Or, the assistance of 2 or more helpers is required for the patient to complete the activity. If activity was not attempted, code reason: 7-Patient Refused. 9-Not Applicable-not attempted and the patient did not perform the activity before the current illness, exacerbation or injury. 10-Not Attempted due to Environmental Limitations-(lack of equipment, weather restraints, etc.). 88-Not Attempted due to Medical Conditions or Safety Concerns. Roll Left to Right (QC): 2 Sit to Lying (QC): 3 Sit to Stand (QC): 2 Chair/Uer-uh-Uirwb Xfer(QC): 2 Car Transfer (QC): 2 Gait Training Does the Patient Walk?: No and Walking Goal NOT indicated Walk 10 feet (QC): 88 Walk 50 ft with 2 Turns(QC): 88 Walk 150 ft (QC): 88 Walking 10ft/uneven surface-QC: 88 Wheelchair Training Does the Pt Use a Wheelchair?: Yes Distance: 150'x2 Wheel 50 ft with 2 turns (QC): 3 Wheel 150 ft (QC): 3 Type of Wheelchair: Manual Stair Training 1 Step (curb) (QC): 88 4 Steps (QC): 88 12 Steps (QC): 88 Balance Picking up an Object (QC): 88 ADL-Treatment Eating (QC): 88 (PEG tube) Oral Hygiene (QC): 5 Bathing Location: L Arm, L Upper Leg, R Upper Leg, Chest, Abdomen Shower/Bathe Self (QC): 1 Upper Body Dressing (QC): 3 Lower Body Dressing (QC): 1 On/Off Footwear (QC): 2 Toileting Hygiene (QC): 1 Toilet Transfer (QC): 1 Assessment/Plan Assessment and Plan Assess & Plan/Chief Complaint Assessment: CVA Left sided weakness Left sided neglect PEG tube status Dysphagia Aspiration hx with PNA CAD AF Coumadin treatment GIB 09/14/19 Plan: IRF protocol ST to work on dysphagia TF to be maintained Coumadin treatment Cardiology evaluation 09/13/19: Continue aggressive treatment Barium Swallow Monitor Hemoglobin 09/14/19: Give gentle IV fluids Increase INR with Coumadin with Lovenox bridge Barium swallow today 09/15/2019: Monitor GI bleed Hold Coumadin and Lovenox and aspirin Hold tube feedings Consult general surgery for endoscopies Maintain n.p.o. status due to aspiration risk 09/16/19: Monitor Hgb NPO Aspiration risk TF gently 09/17/19: No major changes Sleeping most of the time Stay off blood thinners due to second GI bleed 09/18/19: Insomnia treatment Continue aggressive physical therapy 09/19/19: Disposition will be discussed in team conference Tube feedings are tolerated well No more bloody stools Scrotum seems to be bleeding at times 09/19/19: Continue tube feedings of 1 can every 3 hours Sleeps most of the time No more bloody stools Aspirin was restarted Two GI bleeds in less than 2 weeks precludes restarting Coumadin 09/21/19: No more bloody stools Bowels are now light brown Coccyx has alevan to help heal 09/22/19: TF working well when using 1 can at a time No pain reported Continue therapy 09/23/19: Maintain TF for now 1 can at at time Fall risk IRF protocol 09/24/19: Monitor orthostasis Monitor hemoglobin Appreciate Dietary input 09/25/19: Replace ROLANDO hose to limit orthostasis Increasing PEG tube fluid Noted bowel and bladder dysfunction today 09/26/19: TF to continue Increase therapy Monitor for pain and falls 09/27/19: TF continues and doing well No pain reported Fall risk 09/28/19: Needs NHP Monitor Lovenox complications 09/29/19: No bloody stools TF tolerated Needs NH 09/30/19: SNF admit TF maintained 10/01/19: Monitor coughing Labs stable Continue tube feedings [facility] facility at discharge 10/02/19: prison placement required Insomnia treatment the best we can 10/03/19: Keep bed at 45 degree angle to decrease aspiration Disposition of family next week 10/04/19: Family education training Discharge with daughter next week 10/05/19: Monitor loose stools Monitor for any bleeding in stools Slides out of chair easily 10/06/19: Monitor closely TF tolerated DC with family next week 10/07/19: Check labs in am Monitor for falls 10/08/19: Discharge is planned for Tuesday with family Monitor blood pressure Continue current treatment 10/09/19: Discharge is planned for tomorrow Tube feedings are tolerated Tylenol and Melatonin seems to work well for him (1) CVA (cerebral vascular accident) Qualifiers: Qualified Codes: I63.9 - Cerebral infarction, unspecified (2) Atrial fibrillation with normal ventricular rate (3) CAD (coronary artery disease) (4) Stented coronary artery (5) Dysphagia (6) Left-sided weakness (7) At risk for aspiration (8) PEG (percutaneous endoscopic gastrostomy) status (9) On warfarin therapy (10) Left-sided neglect (11) Facial droop KENZIE MORENO DO Oct 09, 2019 09:51
--- NOTE | 2019-10-09 13:00 | NUR ---
ASSISTED BACK TO BED PER [facility]. APPEARS MORE CHEERFUL TODAY AND SMILING. DENIES PAIN. TOLERATED TUBE FEEDINGS WELL.
--- NOTE | 2019-10-09 13:10 | Physical Therapy Daily Note ---
PT Daily Note-Current Subjective Pt presents slouched in recliner for; pt consents to PT. Pt reports no pain. Appearance Pt remains in recliner; PT moved pt farther back into recliner with assist from nurse. Pt has assess to tray, call button, all needs have been met and was left with nurse present in room. Mental Status Patient Orientation: Person, Place, Time, Eyes Open, [place] Transfers SCALE: Activities may be completed with or without assistive devices. 6-Hrisxtcves-jcrfpfp completes the activity by him/herself with no assistance from a helper. 5-Set-up or Clean-up Assistance-helper sets up or cleans up; patient completes activity. [place] assists only prior to or following the activity. 4-Supervision or Touching Assistance-helper provides verbal cues and/or touching/steadying and/or contact guard assistance as patient completes activity. Assistance may be provided throughout the activity or intermittently. 3-Partial/Moderate Assistance-helper does LESS THAN HALF the effort. [place] lifts, holds or supports trunk or limbs, but provides less than half the effort. 2-Substantial/Maximal Assistance-helper does MORE THAN HALF the effort. [place] lifts or holds trunk or limbs and provides more than half the effort. 7-Hfeiosqck-ilunlk does ALL the effort. Patient does none of the effort to complete the activity. Or, the assistance of 2 or more helpers is required for the patient to complete the activity. If activity was not attempted, code reason: 7-Patient Refused. 9-Not Applicable-not attempted and the patient did not perform the activity before the current illness, exacerbation or injury. 10-Not Attempted due to Environmental Limitations-(lack of equipment, weather restraints, etc.). 88-Not Attempted due to Medical Conditions or Safety Concerns. Weight Bearing Full Weight Bearing Full Weight Bearing Exercises Supine Ex: Straight leg raise Supine Reps: 20 (done in recliner with legs elevated) Seated Therapy Exercises: Ankle pumps, Hip flexion, Hip abd/add Seated Reps: 20 Treatments L LE PROM and R LE strengthening. PT assisted nurse with brief changing; PT maneuvered pt with rolling and weightshifting. Assessment Current Status: Poor Progress Pt struggles with correct muscle activation in L LE; requires tactile and verbal cues. PT Short Term Goals Short Term Goals Time Frame: Sep 19, 2019 Roll Left & Right: 2 Sit to lyin Lying to sitting on side of be: 2 Sit to stand: 2 Chair/fks-ua-kslyu transfer: 2 Wheel 50ft w/2 turns: 2 Wheel 150 feet: 2 PT Strategic Partner Development Manager Goals Strategic Partner Development Manager Goals PT Penitentiary Goals Time Frame: Oct 03, 2019 Roll Left & Right (QC): 3 Sit to Lying (QC): 3 Lying-Sitting on Side/Bed(QC): 3 Sit to Stand (QC): 3 Chair/Snc-my-Wrscb Xfer(QC): 3 Toilet Transfer (QC): 3 Car Transfer (QC): 3 Does the Patient Walk: No and Walking Goal NOT indicated Walk 10 feet (QC): 88 Walk 50ft with 2 Turns (QC): 88 Walk 150 ft (QC): 88 Walking 10ft on Uneven Surface: 88 1 Step (curb) (QC): 88 4 Steps (QC): 88 12 Steps (QC): 88 Picking up an Object (QC): 88 Wheel 50 feet with 2 turns (QC: 3 Wheel 150 feet: 3 PT Plan Problem List Problem List: Activity Tolerance, Functional Strength, Safety, Balance, Gait, Transfer, Bed Mobility, ROM Treatment/Plan Treatment Plan: Continue Plan of Care Treatment Plan: Bed Mobility, Education, Functional Activity Aliyah, Functional Strength, Group Therapy, Gait, Safety, Therapeutic Exercise, Transfers Treatment Duration: Oct 03, 2019 Frequency: At least 5 of 7 days/Wk (IRF) Estimated Hrs Per Day: 1.5 hours per day Patient and/or Family Agrees t: Yes Safety Risks/Education Patient Education: Correct Positioning Teaching Recipient: Patient Teaching Methods: Demonstration, Discussion Response to Teaching: Reinforcement Needed Time/GCodes Time In: 1130 Time Out: 1150 Total Billed Treatment Time: 20 Total Billed Treatment 1 visit EX 20' RUY MCGRATH PT Oct 09, 2019 13:10
--- NOTE | 2019-10-09 13:26 | Speech Therapy Daily Note ---
Speech Daily Progress Note Subjective Date Seen by Provider: Oct 09, 2019 Time Seen by Provider: 00:30 Patient was in recliner following his PT and OT session. Objective Patient completed some safety awareness tasks related to his return home with 75% with moderate cues. Assessment Assessment Current Status: Fair Progress Treatment Plan Discontinue ST, Goals Met Speech Short Term Goals Short Term Goals Short Term Goals 1) Patient will complete expressive language exercises at 90% or greater with minimal cues. 2) Patient will complete OME x10 with 90% or greater with minimal cues. 3) Patient will complete oral trials with 90% or greater without s/s of aspiration. Speech Penitentiary Goals Assistant Goals Patient will improve speech production for effective communication of his wants/needs. Patient will maintain adequate nutrition/hydration via PEG and/or oral intake. Speech-Plan Patient/Family Goals Patient/Family Goals: Patient is scheduled to return to his home. He lives with his who will assist with daily needs. He also has other family support as well as receive home health services. Treatment Plan Speech Therapy Treatment Plan: Discontinue ST, Goals Met Treatment Duration: Oct 10, 2019 Frequency: 4 times per week (Patient will receive skilled ST 4-5x per week) Estimated Hrs Per Day: .5 hour per day Rehab Potential: Poor Barriers to Learning: Patient's medical status, cognitive deficits Pt/Family Agrees to Plan: Yes Safety Risks/Education Teaching Recipient: Patient Teaching Methods: Demonstration, Discussion Response to Teaching: Verbalize Understanding, Return Demonstration, Reinforcement Needed Education Topics Provided: Continued safety upon his return home. Time Speech Therapy Time In: 09:00 Speech Therapy Time Out: 09:30 Total Billed Time: 30 Billed Treatment Time 1VONDA BETHANIA ST Oct 09, 2019 13:26
--- NOTE | 2019-10-09 14:02 | Speech Therapy Daily Note ---
Speech Daily Progress Note Subjective Date Seen by Provider: Sep 17, 2019 Time Seen by Provider: 00:30 Patient resting in his bed, participated well with therapy. Objective Patient completed a series of OME and speech articulation exercises with 70% given moderate visual and verbal cues. Assessment Assessment Current Status: Fair Progress Treatment Plan Continue Plan of Care Speech Short Term Goals Short Term Goals Short Term Goals 1) Patient will complete expressive language exercises at 90% or greater with minimal cues. 2) Patient will complete OME x10 with 90% or greater with minimal cues. 3) Patient will complete oral trials with 90% or greater without s/s of aspiration. Speech Halfway Goals Halfway Goals Patient will improve speech production for effective communication of his wan ts/needs. Patient will maintain adequate nutrition/hydration via PEG and/or oral intake. Speech-Plan Patient/Family Goals Patient/Family Goals: Patient plans on returning home upon hospital discharge. Treatment Plan Speech Therapy Treatment Plan: Continue Plan of Care Treatment Duration: Oct 10, 2019 Frequency: 4 times per week (Patient will receive skilled ST 4-5x per week) Estimated Hrs Per Day: .5 hour per day Rehab Potential: Poor Barriers to Learning: Patient's recent CVA Pt/Family Agrees to Plan: Yes Safety Risks/Education Teaching Recipient: Patient Teaching Methods: Demonstration, Discussion Response to Teaching: Verbalize Understanding, Return Demonstration, Reinforcement Needed Education Topics Provided: Continued communication of wants/needs Time Speech Therapy Time In: 11:30 Speech Therapy Time Out: 12:00 Total Billed Time: 30 Billed Treatment Time 1VONDA BETHAN[address] ST Oct 09, 2019 14:02
--- NOTE | 2019-10-09 15:51 | Cardiology Progress Note ---
Cardiology SOAP Progress Note Subjective: No cardiac complaints. Objective: I&O/Vital Signs 10/09/19 10/09/19 05:30 09:00 Temp 36.3 Pulse 82 Resp 16 B/P (MAP) 135/69 (91) Pulse Ox 91 O2 Delivery Room Air Room Air 10/09/19 00:00 Intake Total 1550 ml Balance 1550 ml Constitutional: well-developed, well-nourished, other Respiratory: chest expansion is symmetric, chest is bilaterally symmetric, lungs clear to auscultation Cardiovascular: regular rate-rhythm, S1 and S2, systolic murmur Gastrointestional: soft, audible bowel sounds, other Extremities: no lower extremity edema bilateral Neurologic/Psychiatric: other (L hemiplegia, rightward gaze, monosyllabic speech, orientation difficult to determine) Skin: No rash on exposed areas, No ulcerations on exposed areas A/P: Assessment/Dx: Hematochezia on 09/15/19 (warfarin and ASA were held previously) being managed by Dr Simon and Dr Flores 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 Dias at [facility] Records from [facility] report h/o CVA x 3 (2008, 2013 x2) H/O PE in 2016 tx at [facility] Dysphagia - PEG tube in place HTN CAD - CABG x 4 vessel in February 2016 at [facility] by Dr. Regan - quadruple bypass with VILLATORO to LAD, saphenous vein graft to OM 1, saphenous vein T graft to D1, saphenous vein graft to LPDA. 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 Has been on warfarin H/O hematology w/u at [facility] which did not show hypercoagulable state H/O acute gangrenous cholecystitis for which he underwent cholecystectomy in July 2019 at [place], [place] Documented h/o prostate cancer Okay to discharge, follow-up with outpatient medical scientist. Plan: Plan: On aspirin. Patient is also on Coumadin. Monitor labs Thank you for your consultation. Please call me if you have any questions. Cresencio Sweet MD, FACP, FACC, FSCAI, FHRS, CCDS Interventional Cardiology Cardiac Electrophysiology Vascular Medicine and Endovascular Interventions Miguel SWEET MD Oct 09, 2019 15:51
[2019-10-09] MEDS ORDERED: SUCR1TAB PO (15:58)
[2019-10-09 16:02] VITALS: BP 131/74
--- NOTE | 2019-10-09 16:37 | NUR ---
CM/SS DISCHARGE PLANNING Finalizing discharge set for tomorrow, summarizing two days of case management activity. HHC: Will be provided by [facility], Araceli Rodriguez. RN for fdc, observe, treat, manage nutrition, skin integrity, medications, other fdc needs as assessed. PT, OT, ST. Continuum of care information sent, agency accepted patient for services, including [employer]. Real Time Analyst to fax final orders and instructions once completed. DME: Will be provided by [facility]: Hospital bed, karson with lift sheet, bedside commode, wheelchair with cushion, Jevity 1.5 x6/day with 70 ml flushes before and after. Agency has confirmed all orders and continuum of care information adequate, they will partner with patient's daughter regarding delivery tomorrow, date of discharge. Rx: Patient spouse has picked up Rx from their established pharmacy, [facility] in [place]. Family can have pharmacy services transferred to [place] if and when desired. Therapy team understand that patient's will be picking him up in a mini-van. They will assist getting patient into the van, daughter/THERESE will get patient out and into his new wheelchair upon arrival in [place]. Therapy team will also shower patient before departure at family request. Noting, [facility] agencies contacted but refused due to insurance of [employer] Choice: [facility], [facility] [place] [id number] (formerly [employer]) [facility], at patient capacity, no new patients. Daughter is aware of the insurance issue and intends to change patient back to regular Medicare during the upcoming enrollment period. Finalize tomorrow.
[2019-10-09] MEDS: ALPRAZolam 0.25 MG (XANAX) TAB PO PRN (21:16)
[2019-10-09] MEDS: ACETAMINOPHEN 325 MG TABLET PO PRN (21:17)
[2019-10-10] MEDS: SUCRALFATE 1 GM (CARAFATE) TAB PO SCH ×4 (00:05→18:18)
[2019-10-10 05:37] VITALS: BP 149/74
--- NOTE | 2019-10-10 05:48 | Discharge Summary ---
Diagnosis/Chief Complaint Date of Admission Sep 12, 2019 at 11:43 Date of Discharge Discharge Date: Oct 10, 2019 Discharge Summary Discharge Physical Examination Allergies: Coded Allergies: No Known Drug Allergies (Unverified , 09/12/19) Vitals & I&Os Vital Signs Date Time Temp Pulse Resp B/P (MAP) Pulse Ox O2 Delivery O2 Flow Rate FiO2 10/10/19 05:37 36.4 89 18 149/74 (99) 98 Room Air Hospital Course Labs (last 24 hrs) Laboratory Tests 09/13/19 07:42: White Blood Count 7.7, Red Blood Count 3.52L, Hemoglobin 9.6L, Hematocrit 32L, Mean Corpuscular Volume 90, Mean Corpuscular Hemoglobin 27, Mean Corpuscular Hemoglobin Concent 30L, Red Cell Distribution Width 16.5H, Platelet Count 216, Mean Platelet Volume 10.4, Neutrophils (%) (Auto) 70, Lymphocytes (%) (Auto) 16, Monocytes (%) (Auto) 10, Eosinophils (%) (Auto) 3, Basophils (%) (Auto) 1, Neutrophils # (Auto) 5.4, Lymphocytes # (Auto) 1.3, Monocytes # (Auto) 0.8, Eosinophils # (Auto) 0.2, Basophils # (Auto) 0.1, Prothrombin Time 15.9H, INR Comment 1.2, Sodium Level 137, Potassium Level 4.0, Chloride Level 104, Carbon Dioxide Level 22, Anion Gap 11, Blood Urea Nitrogen 24H, Creatinine 0.84, Estimat Glomerular Filtration Rate > 60, BUN/Creatinine Ratio 29, Glucose Level 116H, Calcium Level 8.5, Corrected Calcium 9.0, Total Bilirubin 0.4, Aspartate Amino Transf (AST/SGOT) 34, Alanine Aminotransferase (ALT/SGPT) 33, Alkaline Phosphatase 71, Total Protein 6.2L, Albumin 3.4 09/14/19 08:19: White Blood Count 6.9, Red Blood Count 3.74L, Hemoglobin 10.2L, Hematocrit 34L, Mean Corpuscular Volume 90, Mean Corpuscular Hemoglobin 27, Mean Corpuscular Hemoglobin Concent 30L, Red Cell Distribution Width 17.1H, Platelet Count 252, Mean Platelet Volume 10.8H, Neutrophils (%) (Auto) 69, Lymphocytes (%) (Auto) 17, Monocytes (%) (Auto) 10, Eosinophils (%) (Auto) 3, Basophils (%) (Auto) 1, Neutrophils # (Auto) 4.8, Lymphocytes # (Auto) 1.2, Monocytes # (Auto) 0.7, Eosinophils # (Auto) 0.2, Basophils # (Auto) 0.0, Prothrombin Time 17.2H, INR Comment 1.4, Sodium Level 138, Potassium Level 4.3, Chloride Level 102, Carbon Dioxide Level 23, Anion Gap 13, Blood Urea Nitrogen 20H, Creatinine 0.94, Estimat Glomerular Filtration Rate > 60, BUN/Creatinine Ratio 21, Glucose Level 103, Calcium Level 9.1, Corrected Calcium 9.5, Total Bilirubin 0.4, Aspartate Amino Transf (AST/SGOT) 45H, Alanine Aminotransferase (ALT/SGPT) 43, Alkaline Phosphatase 73, Total Protein 6.5, Albumin 3.5 09/15/19 04:35: Prothrombin Time 19.4H, INR Comment 1.6H 09/15/19 15:41: Hemoglobin 9.5L, Hematocrit 31L 09/16/19 04:33: White Blood Count 7.3, Red Blood Count 3.78L, Hemoglobin 10.3L, Hematocrit 33L, Mean Corpuscular Volume 88, Mean Corpuscular Hemoglobin 27, Mean Corpuscular Hemoglobin Concent 31L, Red Cell Distribution Width 16.5H, Platelet Count 288, Mean Platelet Volume 10.5H, Prothrombin Time 19.6H, INR Comment 1.6H 09/17/19 04:49: White Blood Count 7.8, Red Blood Count 3.72L, Hemoglobin 10.0L, Hematocrit 32L, Mean Corpuscular Volume 87, Mean Corpuscular Hemoglobin 27, Mean Corpuscular Hemoglobin Concent 31L, Red Cell Distribution Width 16.0H, Platelet Count 296, Mean Platelet Volume 10.4, Prothrombin Time 17.4H, INR Comment 1.4, Neutrophils (%) (Auto) 67, Lymphocytes (%) (Auto) 18, Monocytes (%) (Auto) 12, Eosinophils (%) (Auto) 3, Basophils (%) (Auto) 1, Neutrophils # (Auto) 5.2, Lymphocytes # (Auto) 1.4, Monocytes # (Auto) 0.9, Eosinophils # (Auto) 0.2, Basophils # (Auto) 0.0, Sodium Level 135, Potassium Level 4.2, Chloride Level 102, Carbon Dioxide Level 25, Anion Gap 8, Blood Urea Nitrogen 28H, Creatinine 0.93, Estimat Glomerular Filtration Rate > 60, BUN/Creatinine Ratio 30, Glucose Level 92, Calcium Level 8.6, Corrected Calcium 9.1, Total Bilirubin 0.5, Aspartate Amino Transf (AST/SGOT) 25, Alanine Aminotransferase (ALT/SGPT) 27, Alkaline Phosphatase 73, Total Protein 6.2L, Albumin 3.4 09/20/19 04:34: White Blood Count 8.0, Red Blood Count 3.71L, Hemoglobin 10.0L, Hematocrit 32L, Mean Corpuscular Volume 87, Mean Corpuscular Hemoglobin 27, Mean Corpuscular Hemoglobin Concent 31L, Red Cell Distribution Width 16.1H, Platelet Count 294, Mean Platelet Volume 10.3 09/24/19 05:46: White Blood Count 8.7, Red Blood Count 4.18L, Hemoglobin 11.1L, Hematocrit 35L, Mean Corpuscular Volume 85, Mean Corpuscular Hemoglobin 27, Mean Corpuscular Hemoglobin Concent 31L, Red Cell Distribution Width 15.9H, Platelet Count 298, Mean Platelet Volume 11.2H, Neutrophils (%) (Auto) 71, Lymphocytes (%) (Auto) 16, Monocytes (%) (Auto) 9, Eosinophils (%) (Auto) 4, Basophils (%) (Auto) 1, Neutrophils # (Auto) 6.2, Lymphocytes # (Auto) 1.4, Monocytes # (Auto) 0.8, Eosinophils # (Auto) 0.3, Basophils # (Auto) 0.1, Sodium Level 139, Potassium Level 4.4, Chloride Level 106, Carbon Dioxide Level 26, Anion Gap 7, Blood Urea Nitrogen 17, Creatinine 0.92, Estimat Glomerular Filtration Rate > 60, BUN/Creatinine Ratio 18, Glucose Level 96, Calcium Level 9.4, Corrected Calcium 9.8, Total Bilirubin 0.4, Aspartate Amino Transf (AST/SGOT) 30, Alanine Aminotransferase (ALT/SGPT) 26, Alkaline Phosphatase 82, Total Protein 6.3L, Albumin 3.5 10/01/19 05:22: White Blood Count 7.0, Red Blood Count 4.49, Hemoglobin 11.7L, Hematocrit 38L, Mean Corpuscular Volume 84, Mean Corpuscular Hemoglobin 26, Mean Corpuscular Hemoglobin Concent 31L, Red Cell Distribution Width 15.9H, Platelet Count 292, Mean Platelet Volume 11.1H, Neutrophils (%) (Auto) 65, Lymphocytes (%) (Auto) 20, Monocytes (%) (Auto) 11, Eosinophils (%) (Auto) 3, Basophils (%) (Auto) 1, Neutrophils # (Auto) 4.6, Lymphocytes # (Auto) 1.4, Monocytes # (Auto) 0.8, Eosinophils # (Auto) 0.2, Basophils # (Auto) 0.1, Sodium Level 139, Potassium Level 3.6, Chloride Level 103, Carbon Dioxide Level 26, Anion Gap 10, Blood Urea Nitrogen 19H, Creatinine 0.98, Estimat Glomerular Filtration Rate > 60, BUN/Creatinine Ratio 19, Glucose Level 89, Calcium Level 9.1, Corrected Calcium 9.3, Total Bilirubin 0.5, Aspartate Amino Transf (AST/SGOT) 23, Alanine Aminotransferase (ALT/SGPT) 22, Alkaline Phosphatase 92, Total Protein 6.9, Albumin 3.8 10/08/19 05:54: White Blood Count 6.5, Red Blood Count 3.56L, Hemoglobin 10.7L, Hematocrit 32L, Mean Corpuscular Volume 90, Mean Corpuscular Hemoglobin 30, Mean Corpuscular Hemoglobin Concent 33, Red Cell Distribution Width 16.9H, Platelet Count 468H, Mean Platelet Volume 8.7, Neutrophils (%) (Auto) 67, Lymphocytes (%) (Auto) 17, Monocytes (%) (Auto) 11, Eosinophils (%) (Auto) 4, Basophils (%) (Auto) 1, Neutrophils # (Auto) 4.4, Lymphocytes # (Auto) 1.1, Monocytes # (Auto) 0.7, Eosinophils # (Auto) 0.3, Basophils # (Auto) 0.0, Sodium Level 135, Potassium Level 4.2, Chloride Level 105, Carbon Dioxide Level 20L, Anion Gap 10, Blood Urea Nitrogen 12, Creatinine 0.60, Estimat Glomerular Filtration Rate > 60, BUN/Creatinine Ratio 20, Glucose Level 99, Calcium Level 9.0, Corrected Calcium 9.7, Total Bilirubin 0.2, Aspartate Amino Transf (AST/SGOT) 31, Alanine Aminotransferase (ALT/SGPT) 26, Alkaline Phosphatase 62, Total Protein 6.6, [place] min 3.1L Pending Labs Laboratory Tests 09/13/19 07:42: White Blood Count 7.7, Red Blood Count 3.52, Hemoglobin 9.6, Hematocrit 32, Mean Corpuscular Volume 90, Mean Corpuscular Hemoglobin 27, Mean Corpuscular Hemoglobin Concent 30, Red Cell Distribution Width 16.5, Platelet Count 216, Mean Platelet Volume 10.4, Neutrophils (%) (Auto) 70, Lymphocytes (%) (Auto) 16, Monocytes (%) (Auto) 10, Eosinophils (%) (Auto) 3, Basophils (%) (Auto) 1, Neutrophils # (Auto) 5.4, Lymphocytes # (Auto) 1.3, Monocytes # (Auto) 0.8, Eosinophils # (Auto) 0.2, Basophils # (Auto) 0.1, Prothrombin Time 15.9, INR Comment 1.2, Sodium Level 137, Potassium Level 4.0, Chloride Level 104, Carbon Dioxide Level 22, Anion Gap 11, Blood Urea Nitrogen 24, Creatinine 0.84, Estimat Glomerular Filtration Rate > 60, BUN/Creatinine Ratio 29, Glucose Level 116, Calcium Level 8.5, Corrected Calcium 9.0, Total Bilirubin 0.4, Aspartate Amino Transf (AST/SGOT) 34, Alanine Aminotransferase (ALT/SGPT) 33, Alkaline Phosphatase 71, Total Protein 6.2, Albumin 3.4 09/14/19 08:19: White Blood Count 6.9, Red Blood Count 3.74, Hemoglobin 10.2, Hematocrit 34, Mean Corpuscular Volume 90, Mean Corpuscular Hemoglobin 27, Mean Corpuscular Hemoglobin Concent 30, Red Cell Distribution Width 17.1, Platelet Count 252, Mean Platelet Volume 10.8, Neutrophils (%) (Auto) 69, Lymphocytes (%) (Auto) 17, Monocytes (%) (Auto) 10, Eosinophils (%) (Auto) 3, Basophils (%) (Auto) 1, Neutrophils # (Auto) 4.8, Lymphocytes # (Auto) 1.2, Monocytes # (Auto) 0.7, Eosinophils # (Auto) 0.2, Basophils # (Auto) 0.0, Prothrombin Time 17.2, INR Comment 1.4, Sodium Level 138, Potassium Level 4.3, Chloride Level 102, Carbon Dioxide Level 23, Anion Gap 13, Blood Urea Nitrogen 20, Creatinine 0.94, Estimat Glomerular Filtration Rate > 60, BUN/Creatinine Ratio 21, Glucose Level 103, Calcium Level 9.1, Corrected Calcium 9.5, Total Bilirubin 0.4, Aspartate Amino Transf (AST/SGOT) 45, Alanine Aminotransferase (ALT/SGPT) 43, Alkaline Phosp hatase 73, Total Protein 6.5, Albumin 3.5 09/15/19 04:35: Prothrombin Time 19.4, INR Comment 1.6 09/15/19 15:41: Hemoglobin 9.5, Hematocrit 31 09/16/19 04:33: White Blood Count 7.3, Red Blood Count 3.78, Hemoglobin 10.3, Hematocrit 33, Mean Corpuscular Volume 88, Mean Corpuscular Hemoglobin 27, Mean Corpuscular Hemoglobin Concent 31, Red Cell Distribution Width 16.5, Platelet Count 288, Mean Platelet Volume 10.5, Prothrombin Time 19.6, INR Comment 1.6 09/17/19 04:49: White Blood Count 7.8, Red Blood Count 3.72, Hemoglobin 10.0, Hematocrit 32, Mean Corpuscular Volume 87, Mean Corpuscular Hemoglobin 27, Mean Corpuscular Hemoglobin Concent 31, Red Cell Distribution Width 16.0, Platelet Count 296, Mean Platelet Volume 10.4, Prothrombin Time 17.4, INR Comment 1.4, Neutrophils (%) (Auto) 67, Lymphocytes (%) (Auto) 18, Monocytes (%) (Auto) 12, Eosinophils (%) (Auto) 3, Basophils (%) (Auto) 1, Neutrophils # (Auto) 5.2, Lymphocytes # (Auto) 1.4, Monocytes # (Auto) 0.9, Eosinophils # (Auto) 0.2, Basophils # (Auto) 0.0, Sodium Level 135, Potassium Level 4.2, Chloride Level 102, Carbon Dioxide Level 25, Anion Gap 8, Blood Urea Nitrogen 28, Creatinine 0.93, Estimat Glomerular Filtration Rate > 60, BUN/Creatinine Ratio 30, Glucose Level 92, Calcium Level 8.6, Corrected Calcium 9.1, Total Bilirubin 0.5, Aspartate Amino T ransf (AST/SGOT) 25, Alanine Aminotransferase (ALT/SGPT) 27, Alkaline Phosphatase 73, Total Protein 6.2, Albumin 3.4 09/20/19 04:34: White Blood Count 8.0, Red Blood Count 3.71, Hemoglobin 10.0, Hematocrit 32, Mean Corpuscular Volume 87, Mean Corpuscular Hemoglobin 27, Mean Corpuscular Hemoglobin Concent 31, Red Cell Distribution Width 16.1, Platelet Count 294, Mean Platelet Volume 10.3 09/24/19 05:46: White Blood Count 8.7, Red Blood Count 4.18, Hemoglobin 11.1, Hematocrit 35, Mean Corpuscular Volume 85, Mean Corpuscular Hemoglobin 27, Mean Corpuscular Hemoglobin Concent 31, Red Cell Distribution Width 15.9, Platelet Count 298, Mean Platelet Volume 11.2, Neutrophils (%) (Auto) 71, Lymphocytes (%) (Auto) 16, Monocytes (%) (Auto) 9, Eosinophils (%) (Auto) 4, Basophils (%) (Auto) 1, Neutrophils # (Auto) 6.2, Lymphocytes # (Auto) 1.4, Monocytes # (Auto) 0.8, Eosinophils # (Auto) 0.3, Basophils # (Auto) 0.1, Sodium Level 139, Potassium Level 4.4, Chloride Level 106, Carbon Dioxide Level 26, Anion Gap 7, Blood Urea Nitrogen 17, Creatinine 0.92, Estimat Glomerular Filtration Rate > 60, BUN/Creatinine Ratio 18, Glucose Level 96, Calcium Level 9.4, Corrected Calcium 9.8, Total Bilirubin 0.4, Aspartate Amino Transf (AST/SGOT) 30, Alanine Aminotransferase (ALT/SGPT) 26, Alkaline Phosphatase 82, Total Protein 6.3, Albumin 3.5 10/01/19 05:22: White Blood Count 7.0, Red Blood Count 4.49, Hemoglobin 11.7, Hematocrit 38, Mean Corpuscular Volume 84, Mean Corpuscular Hemoglobin 26, Mean Corpuscular Hemoglobin Concent 31, Red Cell Distribution Width 15.9, Platelet Count 292, Mean Platelet Volume 11.1, Neutrophils (%) (Auto) 65, Lymphocytes (%) (Auto) 20, Monocytes (%) (Auto) 11, Eosinophils (%) (Auto) 3, Basophils (%) (Auto) 1, Neutrophils # (Auto) 4.6, Lymphocytes # (Auto) 1.4, Monocytes # (Auto) 0.8, Eosinophils # (Auto) 0.2, Basophils # (Auto) 0.1, Sodium Level 139, Potassium Level 3.6, Chloride Level 103, Carbon Dioxide Level 26, Anion Gap 10, Blood Urea Nitrogen 19, Creatinine 0.98, Estimat Glomerular Filtration Rate > 60, BUN/Creatinine Ratio 19, Glucose Level 89, Calcium Level 9.1, Corrected Calcium 9.3, Total Bilirubin 0.5, Aspartate Amino Transf (AST/SGOT) 23, Alanine Aminotransferase (ALT/SGPT) 22, Alkaline Phosphatase 92, Total Protein 6.9, Albumin 3.8 10/08/19 05:54: White Blood Count 6.5, Red Blood Count 3.56, Hemoglobin 10.7, Hematocrit 32, Mean Corpuscular Volume 90, Mean Corpuscular Hemoglobin 30, Mean Corpuscular Hemoglobin Concent 33, Red Cell Distribution Width 16.9, Platelet Count 468, Mean Platelet Volume 8.7, Neutrophils (%) (Auto) 67, Lymphocytes (%) (Auto) 17, Monocytes (%) (Auto) 11, Eosinophils (%) (Auto) 4, Basophils (%) (Auto) 1, Neutrophils # (Auto) 4.4, Lymphocytes # (Auto) 1.1, Monocytes # (Auto) 0.7, Eosinophils # (Auto) 0.3, Basophils # (Auto) 0.0, Sodium Level 135, Potassium Level 4.2, Chloride Level 105, Carbon Dioxide Level 20, Anion Gap 10, Blood Urea Nitrogen 12, Creatinine 0.60, Estimat Glomerular Filtration Rate > 60, BUN/Creatinine Ratio 20, Glucose Level 99, Calcium Level 9.0, Corrected Calcium 9.7, Total Bilirubin 0.2, Aspartate Amino Transf (AST/SGOT) 31, Alanine Aminotransferase (ALT/SGPT) 26, Alkaline Phosphatase 62, Total Protein 6.6, Albumin 3.1 Discharge Home Medications: Active Scripts Active Sucralfate 1 Gm Tablet 1 Gm PO ACHS 30 Days Jevity 1.5 Dru Liquid (Lactose-Reduced Food/Fiber) 237 Ml Liquid 237 Ml PEG 6 TIMES DAILY flush with 70ml tap water before and after Jevity Omeprazole-Bicarb 20-1,680 Pkt (Omeprazole/Sodium Bicarbonate) 1 Each Packet 1 Each PEG BID Synthroid (Levothyroxine Sodium) 75 Mcg Tablet 150 Mcg PEG DAILY@0700 Transderm-Scop (Scopolamine) 1 Each Patch.td72 1.5 Mg TD Q72H Atorvastatin Calcium 80 Mg Tablet 80 Mg PEG HS Aspirin 81 Mg Tab.chew 81 Mg PEG DAILY Enoxaparin Sodium 40 Mg/0.4 Ml Syringe 40 Mg SC Q24H Tylenol (Acetaminophen) 325 Mg Capsule 650 Mg PEG Q6H PRN Reported Multivitamin 1 Each Tablet 1 Each PO DAILY Aspirin EC (Aspirin) 81 Mg Tablet.dr 81 Mg PO DAILY Levothyroxine Sodium 150 Mcg Tablet 150 Mg PO DAILY LAST FILLED 04-24-2019 #90 Warfarin Sodium 4 Mg Tablet 4 Mg PO HS Metoprolol Tartrate 25 Mg Tablet 25 Mg PO DAILY Levothyroxine Sodium 75 Mcg Tablet 150 Mcg PO DAILY TAKE 1 HOUR BEFORE MEAL Atorvastatin Calcium 80 Mg Tablet 80 Mg PO HS LAST FILLED 07-05-2019 #30 Instructions to patient/family Please see electronic discharge instructions given to patient. 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
[2019-10-10] MEDS: LEVOTHYROXINE 75 MCG (LEVOTHROID) TABLET PO SCH (06:37)
--- NOTE | 2019-10-10 08:18 | Occupational Ther Daily Note ---
OT Current Status-Daily Note Subjective Pt asleep in bed, woke when name was called. Pt agreed to taking shower. No c/o of pain reported. Mental Status/Objective Patient Orientation: Person, Place, Time, Situation ADL-Treatment Pt's daughter requested that he gets a shower prior to discharge. Mod A x2 to transfer pt from supine to EOB. Max A x2 for SPT from EOB to rolling shower chair with cutout. OT wheeled pt from EOB to bathroom using rolling shower chair with cutout. Pt assisted with cleansing by bathing areas within reach. [place] assisted with all other areas. Pt then completed seated oral care after set up. Max A to don shirt. Max A x2 for SPT from rolling chair to EOB. Mod A x2 to transfer pt from EOB to supine. Max A x2 to don briefs. After therapy, pt lying in bed. Call light/phone in reach. All needs met. Therapy Code Descriptions/Definitions Functional [place] Measure: 0=Not Assessed/NA 4=Minimal Assistance 1=Total Assistance 5=Supervision or Setup 2=Maximal Assistance 6=Modified [place] 3=Moderate Assistance 7=Complete IndependenceSCALE: Activities may be completed with or without assistive devices. 7-[id number]-[id number] completes the activity by him/herself with no assistance fr om a helper. 5-Set-up or Clean-up Assistance-helper sets up or cleans up; patient completes activity. [place] assists only prior to or following the activity. 4-Supervision or Touching Assistance-helper provides verbal cues and/or touching/steadying and/or contact guard assistance as patient completes activity. Assistance may be provided throughout the activity or intermittently. 3-Partial/Moderate Assistance-helper does LESS THAN HALF the effort. [place] lifts, holds or supports trunk or limbs, but provides less than half the effort. 2-Substantial/Maximal Assistance-helper does MORE THAN HALF the effort. [place] lifts or holds trunk or limbs and provides more than half the effort. 5-Uivwitvst-jextwh does ALL the effort. Patient does none of the effort to complete the activity. Or, the assistance of 2 or more helpers is required for the patient to complete the activity. If activity was not attempted, code reason: 7-Patient Refused. 9-Not Applicable-not attempted and the patient did not perform the activity before the current illness, exacerbation or injury. 10-Not Attempted due to Environmental Limitations-(lack of equipment, weather restraints, etc.). 88-Not Attempted due to Medical Conditions or Safety Concerns. OT Short Term Goals Short Term Goals Time Frame: Sep 19, 2019 Shower/bathe self: 2 Upper body dressin Lower body dressin OT Detention Goals Detention Goals Time Frame: Oct 03, 2019 Eating (QC): 4 (not met) Oral Hygiene (QC): 4 (met) Toileting Hygiene (QC): 3 (not met) Shower/Bathe Self (QC): 3 (not met) Upper Body Dressing (QC): 3 (met) Lower Body Dressing (QC): 2 (not met) On/Off Footwear (QC): 2 (met) Additional Goals: 1-Demonstrate ADL Tasks, 2-Verbalize Understanding, 3- ImproveStrength/Aliyah 1=Demonstrate adherence to instructed precautions during ADL tasks. 2=Patient will verbalize/demonstrate understanding of assistive devices/modifications for ADL. 3=Patient will improve strength/tolerance for activity to enable patient to perform ADL's. OT Education/Plan Problem List/Assessment Assessment: Decreased Activ Tolerance, Decreased Safety Aware, Decreased UE Strength, Dependent Transfers, Impaired Bed Mobility, Impaired Cognition, Impaired Coordination, Impaired Funct Balance, Impaired I ADL's, Impaired Self- Care Skills, Restricted Funct UE ROM, Visual-Perceptual Deficit Discharge Recommendations Plan/Recommendations: Discharge/Goals Met (Pt to discharge to home) Treatment Plan/Plan of Care Patient would benefit from OT for education, treatment and training to promote independence in ADL's, mobility, safety and/or upper extremity function for ADL's. Plan of Care: ADL Retraining, Caregiver Training, Functional Mobility, Group Exercise/Act as Ind, Orthotic Fitting/Training, UE Funct Exercise/Act, UE Neuromus Re-Ed/Coord, Visual/Perceptual Retrain, W/C Management Training Treatment Duration: Oct 03, 2019 Frequency: At least 5 of 7 days/Wk (IRF) Estimated Hrs Per Day: 1.5 hours per day Agreement: Yes Rehab Potential: Poor Time/GCodes Start Time: 07:30 Stop Time: 08:00 Total Time Billed (hr/min): 30 Billed Treatment Time 1 visit-ADL 2 (30 mins) CALLIE LARIOS Oct 10, 2019 08:18
[2019-10-10] MEDS: LACTOBACILLUS ACIDOPHILUS (PROBIOTIC) CAPSULE PEG SCH ×2 (08:40→21:16)
[2019-10-10] MEDS: ASPIRIN 81 MG CHEW (CHILDREN'S ASA) PO SCH (08:40)
[2019-10-10] MEDS: ENOXAPARIN 40 MG/0.4 ML (LOVENOX) SYR SC SCH (08:40)
[2019-10-10] MEDS: PANTOPRAZOLE 2 MG/ML LIQUID 200 ML (PROTONIX) PEG SCH ×6 (08:41→21:16)
[2019-10-10] MEDS: polyethylene glycoL POWDER 17 GM (MIRALAX) PACK PO SCH ×2 (09:14→19:55)
[2019-10-10] MEDS: DOCUSATE SODIUM 100 MG (COLACE) CAP PO SCH ×2 (09:14→19:53)
[2019-10-10] MEDS: SENNA W/DOCUSATE (SENOKOT S) TABLET PO SCH ×2 (09:14→19:55)
--- NOTE | 2019-10-10 09:32 | PM&R Progress Note ---
Subjective HPI/CC On Admission Date Seen by Provider: Oct 10, 2019 Time Seen by Provider: 09:00 Subjective/Events-last exam 10/10/19: DC delayed by one day due to DME delivery 10/09/19: DC is planned tomorrow No issues Tolerating tube feedings Tylenol with Melatonin working very well for him at night 10/08/19: Bowels moving regularly Family expecting discharge Tuesday No pain is reported 10/07/19: Patient sleeps most of the time No falls No pain reported 10/06/19: Patient doing well No major issues 2 BM's 10/05/19: Pt had three bowel movements last night No bleeding noted Slides out of the chair so he remains in bed 10/04/19: Family training next week Overall feels like he is doing pretty well Sleepy today No falls 10/03/19: DC to daughter's house next week Working hard during therapy More alert today 10/02/19: Family at the bedside Xanax and Melatonin were given to help him sleep but he didnt sleep well and that is periodic for him No pain is reported Participating in therapy penitentiary placement pending 10/01/19: Pt was coughing a bit but lungs are clear and he wasn't coughing with me Labs good, Hgb 11.7 No rectal bleeding Maintain on Lovenox for DVT prophylaxis 09/30/19: Patient feels ok TF tolerated Checked meds and labs No pain reported 09/29/19: Daughter at the bedside Patient has difficulty communicating No pain reported Needs NHP 09/28/19: Needs to go to [place] No pain reported Slight smear of blood with BM so may not even be able to tolerate Lovenox DVT PPx dose 09/27/19: Went from bed to chair without a Sarah-lift today More alert today Had a BM three days ago so will start laxatives No nausea or vomiting Tolerating tube feedings Lovenox 40 Mg started for DVT prophylaxis He just can't seem to tolerate the therapeutic dose for AFIB because of GI bleeds 09/26/19: Insomnia much improved he slept very well last night Bowels are moving Tube feedings are tolerated since it is only one can at a time No falls Appears to be more motivated today 09/25/19: BP remains a little bit low, will replace ROLANDO hose Bowel and bladder incontinence noted today Peg tub will be utilized for increased fluid intake 09/24/19: Holding Lopressor due to orthostasis during PT today BP 125/70 after orthostasis episode resolved No nausea or vomiting Regular rhythm on exam 09/23/19: Tolerating TF well Lethargic is chronic No pain reported 09/22/19: BM yesterday Tolerating TF well No pain reported 09/21/19: Pt more talkative today No more bloody stools Two bowel movements last night were brown Decubitus ulcer on coccyx being monitored and managed 09/20/19: Pt sleeping most of the time Participating in therapy Tube feedings of one can every three hours is working a lot better for him, he is tolerating it better No more bloody stools Cardiology restarted Aspirin but Coumadin will continue to be held because he has had two GI bleeds in the past two weeks and cant withstand a colonoscopy prep Very complex case 09/19/19: Pt sleeps most of the time Will discuss disposition, I doubt any recovery potential Overall needs probably a prison for long-term care 09/18/19: Insomnia is an issue Worked with PT today but seems to take a lot of naps during the day which disrupts the nighttime sleeping No pain is reported 09/17/19: Pt sleeps most of the time No major changes No bloody stools Off of Lovenox, Coumadin and Aspirin Second GI bleed in the last few weeks 09/16/19: No bloody stools today Hgb stable 10.3 Is not strong enough to undergo C-scope prep Dr Flores saw him this morning Holding ASA Lovenox Coumadin Had GI at [place] also Decreased cognition 09/15/19: Patient had been doing pretty well when I rounded No more nausea and vomiting like yesterday Tube feeding was restarted slowly I stopped the Clinimix since tube feedings were started N.p.o. 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 Flores general surgery was consulted and checked hemoglobin and hematocrit. 09/14/19: Had nausea and vomiting all last night Needs IV fluids gently so we'll start that today Urinary incontinence noted No fecal incontinence Holding tube feedings for right now Barium swallow today at 11:30 INR 1.4 will increase dose and provide Lovenox 09/13/19: Patient doing pretty well today Sleeping currently Therapy worked with him today Modified Barium Swallow scheduled Hemoglobin 9.6 Disoriented at times Bowels moved yesterday Conferred with RN Reviewed Therapy notes Checked Meds and Labs Review of Systems General: Fatigue, Malaise Neurological: Weakness Objective Exam Vital Signs Vital Signs Date Time Temp Pulse Resp B/P (MAP) Pulse Ox O2 Delivery O2 Flow Rate FiO2 10/10/19 18:00 36.3 92 18 108/55 (72) 96 Room Air Capillary Refill : Less Than 3 SecondsLess Than 3 Seconds General Appearance: No Apparent Distress, WD/WN, Chronically ill HEENT: PERRL/EOMI, Normal ENT Inspection, Pharynx Normal Neck: Full Range of Motion, Normal Inspection, Non Tender, Supple, Carotid Bruit Respiratory: Chest Non Tender, Lungs Clear, Normal Breath Sounds, No Accessory Muscle Use, No Respiratory Distress Cardiovascular: No Edema, No Gallop, No JVD, No Murmur, Normal Peripheral Pulses, Irregularly Irregular Gastrointestinal: Normal Bowel Sounds, No Organomegaly, No Pulsatile Mass, Non Tender, Soft Back: Normal Inspection, No CVA Tenderness, No Vertebral Tenderness Extremity: Normal Capillary Refill, Normal Inspection, Normal Range of Motion, Non Tender, No Calf Tenderness, Pedal Edema Neurologic/Psychiatric: Alert, Oriented x3, Normal Mood/Affect, 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 FIM Transfers Therapy Code Descriptions/Definitions Functional [place] Measure: 0=Not Assessed/NA 4=Minimal Assistance 1=Total Assistance 5=Supervision or Setup 2=Maximal Assistance 6=Modified [place] 3=Moderate Assistance 7=Complete IndependenceSCALE: Activities may be completed with or without assistive devices. 9-Bplunjsoyr-wvtpvxz completes the activity by him/herself with no assistance from a helper. 5-Set-up or Clean-up Assistance-helper sets up or cleans up; patient completes activity. [place] assists only prior to or following the activity. 4-Supervision or Touching Assistance-helper provides verbal cues and/or touching/steadying and/or contact guard assistance as patient completes activity. Assistance may be provided throughout the activity or intermittently. 3-Partial/Moderate Assistance-helper does LESS THAN HALF the effort. [place] lifts, holds or supports trunk or limbs, but provides less than half the effort. 2-Substantial/Maximal Assistance-helper does MORE THAN HALF the effort. [place] lifts or holds trunk or limbs and provides more than half the effort. 4-Rlfapulgj-yumxgw does ALL the effort. Patient does none of the effort to complete the activity. Or, the assistance of 2 or more helpers is required for the patient to complete the activity. If activity was not attempted, code reason: 7-Patient Refused. 9-Not Applicable-not attempted and the patient did not perform the activity before the current illness, exacerbation or injury. 10-Not Attempted due to Environmental Limitations-(lack of equipment, weather restraints, etc.). 88-Not Attempted due to Medical Conditions or Safety Concerns. Roll Left to Right (QC): 2 Sit to Lying (QC): 3 Sit to Stand (QC): 2 Chair/Zoj-tr-Pffgr Xfer(QC): 2 Car Transfer (QC): 2 Gait Training Does the Patient Walk?: No and Walking Goal NOT indicated Walk 10 feet (QC): 88 Walk 50 ft with 2 Turns(QC): 88 Walk 150 ft (QC): 88 Walking 10ft/uneven surface-QC: 88 Wheelchair Training Does the Pt Use a Wheelchair?: Yes Distance: 150'x2 Wheel 50 ft with 2 turns (QC): 3 Wheel 150 ft (QC): 3 Type of Wheelchair: Manual Stair Training 1 Step (curb) (QC): 88 4 Steps (QC): 88 12 Steps (QC): 88 Balance Picking up an Object (QC): 88 ADL-Treatment Eating (QC): 88 (PEG tube) Oral Hygiene (QC): 5 Bathing Location: L Arm, L Upper Leg, R Upper Leg, Chest, Abdomen Shower/Bathe Self (QC): 1 Upper Body Dressing (QC): 3 Lower Body Dressing (QC): 1 On/Off Footwear (QC): 2 Toileting Hygiene (QC): 1 Toilet Transfer (QC): 1 Assessment/Plan Assessment and Plan Assess & Plan/Chief Complaint Assessment: CVA Left sided weakness Left sided neglect PEG tube status Dysphagia Aspiration hx with PNA CAD AF Coumadin treatment GIB 09/14/19 Plan: IRF protocol ST to work on dysphagia TF to be maintained Coumadin treatment Cardiology evaluation 09/13/19: Continue aggressive treatment Barium Swallow Monitor Hemoglobin 09/14/19: Give gentle IV fluids Increase INR with Coumadin with Lovenox bridge Barium swallow today 09/15/2019: Monitor GI bleed Hold Coumadin and Lovenox and aspirin Hold tube feedings Consult general surgery for endoscopies Maintain n.p.o. status due to aspiration risk 09/16/19: Monitor Hgb NPO Aspiration risk TF gently 09/17/19: No major changes Sleeping most of the time Stay off blood thinners due to second GI bleed 09/18/19: Insomnia treatment Continue aggressive physical therapy 09/19/19: Disposition will be discussed in team conference Tube feedings are tolerated well No more bloody stools Scrotum seems to be bleeding at times 09/19/19: Continue tube feedings of 1 can every 3 hours Sleeps most of the time No more bloody stools Aspirin was restarted Two GI bleeds in less than 2 weeks precludes restarting Coumadin 09/21/19: No more bloody stools Bowels are now light brown Coccyx has alevan to help heal 09/22/19: TF working well when using 1 can at a time No pain reported Continue therapy 09/23/19: Maintain TF for now 1 can at at time Fall risk IRF protocol 09/24/19: Monitor orthostasis Monitor hemoglobin Appreciate Dietary input 09/25/19: Replace ROLANDO hose to limit orthostasis Increasing PEG tube fluid Noted bowel and bladder dysfunction today 09/26/19: TF to continue Increase therapy Monitor for pain and falls 09/27/19: TF continues and doing well No pain reported Fall risk 09/28/19: Needs NHP Monitor Lovenox complications 09/29/19: No bloody stools TF tolerated Needs NH 09/30/19: SNF admit TF maintained 10/01/19: Monitor coughing Labs stable Continue tube feedings assisted facility at discharge 10/02/19: penitentiary placement required Insomnia treatment the best we can 10/03/19: Keep bed at 45 degree angle to decrease aspiration Disposition of family next week 10/04/19: Family education training Discharge with daughter next week 10/05/19: Monitor loose stools Monitor for any bleeding in stools Slides out of chair easily 10/06/19: Monitor closely TF tolerated DC with family next week 10/07/19: Check labs in am Monitor for falls 10/08/19: Discharge is planned for Tuesday with family Monitor blood pressure Continue current treatment 10/09/19: Discharge is planned for tomorrow Tube feedings are tolerated Tylenol and Melatonin seems to work well for him 10/10/19: Delay discharge until tomorrow until DME has arrived at house Monitor closely (1) CVA (cerebral vascular accident) Qualifiers: Qualified Codes: I63.9 - Cerebral infarction, unspecified (2) Atrial fibrillation with normal ventricular rate (3) CAD (coronary artery disease) (4) Stented coronary artery (5) Dysphagia (6) Left-sided weakness (7) At risk for aspiration (8) PEG (percutaneous endoscopic gastrostomy) status (9) On warfarin therapy (10) Left-sided neglect (11) Facial droop KENZIE MORENO DO Oct 10, 2019 09:32
--- NOTE | 2019-10-10 10:43 | Occupational Ther Daily Note ---
OT Current Status-Daily Note Subjective Pt sleeping in bed, woke with bed lowering. Pt not discharging today due to family not receiving equipment (karson lift, hospital bed) until tomorrow. Pt quiet and uses only nodding head or hand gestures to communicate. Mental Status/Objective Patient Orientation: Person ADL-Treatment OT/PT kenneth ([phone]), skills of 2 clinicians requires for neuromuscular retraining to increase ability to perform transfers, B L UE/LE ROM, sitting balance, w/c mobility and ADLs. PT working on bed mobility, sitting balance, L LE and transfers. OT working on ADLs and positioning of R UE for functional tasks throughout therapy. No active movement noted with L UE. 1/2" subluxation noted in L shldr, continue to position for correct alignment. Pt dependent with hygiene after incontinence and lower body dressing. See PT notes for transfers and mobility progress. After session, pt left in care of PT. All needs met. Therapy Code Descriptions/Definitions Functional [place] Measure: 0=Not Assessed/NA 4=Minimal Assistance 1=Total Assistance 5=Supervision or Setup 2=Maximal Assistance 6=Modified [place] 3=Moderate Assistance 7=Complete IndependenceSCALE: Activities may be completed with or without assistive devices. 0-Cdtdepceoq-sncghuy completes the activity by him/herself with no assistance from a helper. 5-Set-up or Clean-up Assistance-helper sets up or cleans up; patient completes activity. [place] assists only prior to or following the activity. 4-Supervision or Touching Assistance-helper provides verbal cues and/or touching/steadying and/or contact guard assistance as patient completes activity. Assistance may be provided throughout the activity or intermittently. 3-Partial/Moderate Assistance-helper does LESS THAN HALF the effort. [place] lifts, holds or supports trunk or limbs, but provides less than half the effort. 2-Substantial/Maximal Assistance-helper does MORE THAN HALF the effort. [place] lifts or holds trunk or limbs and provides more than half the effort. 8-Oxairtcws-nxmesk does ALL the effort. Patient does none of the effort to complete the activity. Or, the assistance of 2 or more helpers is required for the patient to complete the activity. If activity was not attempted, code reason: 7-Patient Refused. 9-Not Applicable-not attempted and the patient did not perform the activity before the current illness, exacerbation or injury. 10-Not Attempted due to Environmental Limitations-(lack of equipment, weather restraints, etc.). 88-Not Attempted due to Medical Conditions or Safety Concerns. Lower Body Dressing (QC): 1 Toileting Hygiene (QC): 1 OT Short Term Goals Short Term Goals Time Frame: Sep 19, 2019 Shower/bathe self: 2 Upper body dressin Lower body dressin OT Assisted Goals Car Electronics Installer Goals Time Frame: Oct 03, 2019 Eating (QC): 4 (not met) Oral Hygiene (QC): 4 (met) Toileting Hygiene (QC): 3 (not met) Shower/Bathe Self (QC): 3 (not met) Upper Body Dressing (QC): 3 (met) Lower Body Dressing (QC): 2 (not met) On/Off Footwear (QC): 2 (met) Additional Goals: 1-Demonstrate ADL Tasks, 2-Verbalize Understanding, 3-Impro veStrength/Aliyah 1=Demonstrate adherence to instructed precautions during ADL tasks. 2=Patient will verbalize/demonstrate understanding of assistive devices/modifications for ADL. 3=Patient will improve strength/tolerance for activity to enable patient to perform ADL's. OT Education/Plan Problem List/Assessment Assessment: Decreased Activ Tolerance, Decreased Safety Aware, Decreased UE Strength, Dependent Transfers, Impaired Bed Mobility, Impaired Cognition, Imp aired Coordination, Impaired Funct Balance, Impaired I ADL's, Impaired Self-Care Skills, Restricted Funct UE ROM, Visual-Perceptual Deficit Discharge Recommendations Plan/Recommendations: Continue POC Treatment Plan/Plan of Care Patient would benefit from OT for education, treatment and training to promote independence in ADL's, mobility, safety and/or upper extremity function for ADL's. Plan of Care: ADL Retraining, Caregiver Training, Functional Mobility, Group Exercise/Act as Ind, Orthotic Fitting/Training, UE Funct Exercise/Act, UE Neuromus Re-Ed/Coord, Visual/Perceptual Retrain, W/C Management Training Treatment Duration: Oct 03, 2019 Frequency: At least 5 of 7 days/Wk (IRF) Estimated Hrs Per Day: 1.5 hours per day Agreement: Yes Rehab Potential: Poor Time/GCodes Start Time: 09:50 Stop Time: 10:35 Total Time Billed (hr/min): 45 Billed Treatment Time 1 visit-ADL 1 (20 min) NM 2 (25 min) [place] with PT 45 min CALLIE LARIOS Oct 10, 2019 10:43
--- NOTE | 2019-10-10 10:49 | Physical Therapy Daily Note ---
PT Daily Note-Current Subjective Pt presents for PT supine in bed; requiring brief changing. Pt reports discomfort in R anterior hip. Pt consents to therapy. Will be co-treating for most of tx today due to poor patient mobility, strength, endurance, left hemiparesis, poor sitting and standing balance, pushers syndrome, the need to coordinate UE and LE during activity. Appearance Post tx pt is returned to bed with assess to tray, call button, and all needs met, bed alarm on. Mental Status Patient Orientation: Person, Non-Verbal/Aphasic, Eyes Open, [place] Transfers SCALE: Activities may be completed with or without assistive devices. 1-Pjktzpdjjj-hbxyccg completes the activity by him/herself with no assistance from a helper. 5-Set-up or Clean-up Assistance-helper sets up or cleans up; patient completes activity. [place] assists only prior to or following the activity. 4-Supervision or Touching Assistance-helper provides verbal cues and/or touching/steadying and/or contact guard assistance as patient completes activity. Assistance may be provided throughout the activity or intermittently. 3-Partial/Moderate Assistance-helper does LESS THAN HALF the effort. [place] lifts, holds or supports trunk or limbs, but provides less than half the effort. 2-Substantial/Maximal Assistance-helper does MORE THAN HALF the effort. [place] lifts or holds trunk or limbs and provides more than half the effort. 2-Kevknirls-farzxo does ALL the effort. Patient does none of the effort to complete the activity. Or, the assistance of 2 or more helpers is required for the patient to complete the activity. If activity was not attempted, code reason: 7-Patient Refused. 9-Not Applicable-not attempted and the patient did not perform the activity before the current illness, exacerbation or injury. 10-Not Attempted due to Environmental Limitations-(lack of equipment, weather restraints, etc.). 88-Not Attempted due to Medical Conditions or Safety Concerns. Roll Left & Right (QC): 2 Sit to Lying (QC): 2 Lying to Sitting/Side of Bed(Q: 2 Sit to Stand (QC): 2 Chair/Rin-ae-Ejvlh Xfer(QC): 2 Patient has to roll to each side several times for changing brief and dressing. Weight Bearing Full Weight Bearing Full Weight Bearing Wheelchair Training Does the Pt Use a Wheelchair?: Yes Wheel 50 ft with 2 turns (QC): 3 Wheel 150 ft (QC): 3 Type of Wheelchair: Manual 600', 75' Exercises Seated Therapy Exercises: Ankle pumps, Long arc quads, Hip flexion, Hamstring Curls, Hip abd/add Seated Reps: 20 PROM LLE seated in knee extension/flex and hip flexion and dorsiflexion. Treatments Co-treated with OT due to patients limitations in strength, endurance, mobility and inability to coordinate UE and LE movements. PT performed bed mobility and transfers, WC mobility, LE ROM, assist with changing brief and dressing, OT performed dressing, cleaning and changing brief, UE ROM, assist with UE positioning and safety during activity. Assessment Current Status: Poor Progress, Fair Progress Pt extremely fatigued during today's tx and struggled to stay awake; pt able to progress in wheelchair 2-6' before needing cueing to continue. PT Short Term Goals Short Term Goals Time Frame: Sep 19, 2019 Roll Left & Right: 2 Sit to lyin Lying to sitting on side of be: 2 Sit to stand: 2 Chair/hjt-pq-fosdg transfer: 2 Wheel 50ft w/2 turns: 2 Wheel 150 feet: 2 PT Alf Goals Alf Goals PT Alf Goals Time Frame: Oct 03, 2019 Roll Left & Right (QC): 3 Sit to Lying (QC): 3 Lying-Sitting on Side/Bed(QC): 3 Sit to Stand (QC): 3 Chair/Bnc-gn-Dolqo Xfer(QC): 3 Toilet Transfer (QC): 3 Car Transfer (QC): 3 Does the Patient Walk: No and Walking Goal NOT indicated Walk 10 feet (QC): 88 Walk 50ft with 2 Turns (QC): 88 Walk 150 ft (QC): 88 Walking 10ft on Uneven Surface: 88 1 Step (curb) (QC): 88 4 Steps (QC): 88 12 Steps (QC): 88 Picking up an Object (QC): 88 Wheel 50 feet with 2 turns (QC: 3 Wheel 150 feet: 3 PT Plan Problem List Problem List: Activity Tolerance, Functional Strength, Safety, Balance, Gait, Transfer, Bed Mobility, ROM Treatment/Plan Treatment Plan: Continue Plan of Care Treatment Plan: Bed Mobility, Education, Functional Activity Aliyah, Functional Strength, Group Therapy, Gait, Safety, Therapeutic Exercise, Transfers Treatment Duration: Oct 03, 2019 Frequency: At least 5 of 7 days/Wk (IRF) Estimated Hrs Per Day: 1.5 hours per day Patient and/or Family Agrees t: Yes Safety Risks/Education Patient Education: Transfer Techniques, Correct Positioning, W/C Management, Safety Issues Teaching Recipient: Patient Teaching Methods: Demonstration, Discussion Response to Teaching: Reinforcement Needed Time/GCodes Time In: 0950 Time Out: 1050 Total Billed Treatment Time: 60 Total Billed Treatment 1 visit FA 40' EX 20' RUY MCGRATH PT Oct 10, 2019 10:49
--- NOTE | 2019-10-10 10:56 | NUR ---
CM/SS DISCHARGE Patient's discharge delayed until tomorrow because [facility] allowed the reserved hospital bed and lift to go out on another order. Confirmed with agency they can deliver tomorrow, they are delivering the BSC and Wheelchair today. [facility] staff very apologetic about this circumstance. Patient's daughter fully updated, she will be updating her mother re same. Mrs. Cardozo will likely stay at home today since day of discharge will be very long with all the road time and anticipated stress until he is settled at home in [place]. Updated [facility] of one day delay of discharge, no issue for them regarding start of service.
--- NOTE | 2019-10-10 11:22 | Speech Therapy Daily Note ---
Speech Daily Progress Note Subjective Date Seen by Provider: Oct 10, 2019 Time Seen by Provider: 00:30 Patient was resting in bed following his OT and PT session. Patient was scheduled to return home this date, however due to a delay in medical equipment delivery delay he will return home tomorrow. Objective Patient completed fill in the blank cognitive tasks with 60% given moderate cues and response time. Assessment Assessment Current Status: Fair Progress Treatment Plan Discontinue ST, Goals Met Speech Short Term Goals Short Term Goals Short Term Goals 1) Patient will complete expressive language exercises at 90% or greater with minimal cues. 2) Patient will complete OME x10 with 90% or greater with minimal cues. 3) Patient will complete oral trials with 90% or greater without s/s of aspiration. Speech Motorized Squad Sergeant Goals [facility]cf Goals Patient will improve speech production for effective communication of his wants/needs. Patient will maintain adequate nutrition/hydration via PEG and/or oral intake. Speech-Plan Patient/Family Goals Patient/Family Goals: Patient will return home tomorrow when his medical equipment will be delivered. He will have family to support his daily needs. Treatment Plan Speech Therapy Treatment Plan: Discontinue ST, Goals Met Treatment Duration: Oct 10, 2019 Frequency: 4 times per week (Patient will receive skilled ST 4-5x per week) Estimated Hrs Per Day: .5 hour per day Rehab Potential: Poor Barriers to Learning: Patient's CVA after affects, medical status Pt/Family Agrees to Plan: Yes Safety Risks/Education Teaching Recipient: Patient Teaching Methods: Demonstration, Discussion Response to Teaching: Verbalize Understanding, Return Demonstration Education Topics Provided: Continued safety upon his return home Time Speech Therapy Time In: 11:00 Speech Therapy Time Out: 11:30 Total Billed Time: 30 Billed Treatment Time 1, SLEARNEST Marrufo Oct 10, 2019 11:22
--- NOTE | 2019-10-10 13:37 | Cardiology Progress Note ---
Cardiology SOAP Progress Note Subjective: No cardiac complaints Objective: I&O/Vital Signs 10/10/19 10/10/19 05:37 09:00 Temp 36.4 Pulse 89 Resp 18 B/P (MAP) 149/74 (99) Pulse Ox 98 O2 Delivery Room Air Room Air 10/10/19 00:00 Intake Total 1560 ml Balance 1560 ml Constitutional: well-developed, well-nourished, other Respiratory: chest expansion is symmetric, chest is bilaterally symmetric, lungs clear to auscultation Cardiovascular: regular rate-rhythm, S1 and S2, systolic murmur Gastrointestional: soft, audible bowel sounds, other Extremities: no lower extremity edema bilateral Neurologic/Psychiatric: other (L hemiplegia, rightward gaze, monosyllabic speech, orientation difficult to determine) Skin: No rash on exposed areas, No ulcerations on exposed areas A/P: Assessment/Dx: Hematochezia on 09/15/19 (warfarin and ASA were held previously) being managed by Dr Simon and Dr Flores 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 Dias at [facility] Records from [facility] report h/o CVA x 3 (2008, 2013 x2) H/O PE in 2016 tx at [facility] Dysphagia - PEG tube in place HTN CAD - CABG x 4 vessel in February 2016 at [facility] by Dr. Regan - quadruple bypass with VILLATORO to LAD, saphenous vein graft to OM 1, saphenous vein T graft to D1, saphenous vein graft to LPDA. 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 Has been on warfarin H/O hematology w/u at [facility] which did not show hypercoagulable state H/O acute gangrenous cholecystitis for which he underwent cholecystectomy in July 2019 at [place], [place] Documented h/o prostate cancer Okay to discharge, follow-up with outpatient legal recovery specialist. Plan: Plan: On aspirin. Patient is also on Coumadin. Monitor labs Thank you for your consultation. Please call me if you have any questions. Cresencio Sweet MD, FACP, FACC, FSCAI, FHRS, CCDS Interventional Cardiology Cardiac Electrophysiology Vascular Medicine and Endovascular Interventions Miguel SWEET MD Oct 10, 2019 13:37
--- NOTE | 2019-10-10 14:07 | Physical Therapy Daily Note ---
PT Daily Note-Current Subjective Patient presents to therapy supine in bed; pt agrees to PT. Pt reports no current pain. Appearance After PT tx pt is supine in bed with pillow supports; pt as access to tray, roberts, call button and all needs have been met. Mental Status Patient Orientation: Person, Eyes Open, [place] Transfers SCALE: Activities may be completed with or without assistive devices. 4-Usihnzuach-wdawgbb completes the activity by him/herself with no assistance from a helper. 5-Set-up or Clean-up Assistance-helper sets up or cleans up; patient completes activity. [place] assists only prior to or following the activity. 4-Supervision or Touching Assistance-helper provides verbal cues and/or touching/steadying and/or contact guard assistance as patient completes activity. Assistance may be provided throughout the activity or intermittently. 3-Partial/Moderate Assistance-helper does LESS THAN HALF the effort. [place] lifts, holds or supports trunk or limbs, but provides less than half the effort. 2-Substantial/Maximal Assistance-helper does MORE THAN HALF the effort. [place] lifts or holds trunk or limbs and provides more than half the effort. 4-Urgaeljtf-xvyedu does ALL the effort. Patient does none of the effort to complete the activity. Or, the assistance of 2 or more helpers is required for the patient to complete the activity. If activity was not attempted, code reason: 7-Patient Refused. 9-Not Applicable-not attempted and the patient did not perform the activity before the current illness, exacerbation or injury. 10-Not Attempted due to Environmental Limitations-(lack of equipment, weather restraints, etc.). 88-Not Attempted due to Medical Conditions or Safety Concerns. Weight Bearing Full Weight Bearing Full Weight Bearing Exercises Supine Ex: Ankle pumps, Heel Slides, Short Arc Quads, Straight leg raise (req uired constant cueing and time to reset between reps to keep knee straight), Hip abd/add Treatments R LE strengthening and L PROM knee flex/ext, hip flex/ER/IR, ankle df/pf Assessment Current Status: Poor Progress Pt limited in quad strength with spasms after activity. Pt does not grimace with L hip flexion to end-range today. PT Short Term Goals Short Term Goals Time Frame: Sep 19, 2019 Roll Left & Right: 2 Sit to lyin Lying to sitting on side of be: 2 Sit to stand: 2 Chair/rsc-ik-gbalf transfer: 2 Wheel 50ft w/2 turns: 2 Wheel 150 feet: 2 PT Nursing Home Goals Shot Examiner Goals PT Shot Examiner Goals Time Frame: Oct 03, 2019 Roll Left & Right (QC): 3 Sit to Lying (QC): 3 Lying-Sitting on Side/Bed(QC): 3 Sit to Stand (QC): 3 Chair/Xpm-wg-Ufuch Xfer(QC): 3 Toilet Transfer (QC): 3 Car Transfer (QC): 3 Does the Patient Walk: No and Walking Goal NOT indicated Walk 10 feet (QC): 88 Walk 50ft with 2 Turns (QC): 88 Walk 150 ft (QC): 88 Walking 10ft on Uneven Surface: 88 1 Step (curb) (QC): 88 4 Steps (QC): 88 12 Steps (QC): 88 Picking up an Object (QC): 88 Wheel 50 feet with 2 turns (QC: 3 Wheel 150 feet: 3 PT Plan Problem List Problem List: Activity Tolerance, Functional Strength, Safety, Balance, Gait, Transfer, Bed Mobility, ROM Treatment/Plan Treatment Plan: Continue Plan of Care Treatment Plan: Bed Mobility, Education, Functional Activity Aliyah, Functional Strength, Group Therapy, Gait, Safety, Therapeutic Exercise, Transfers Treatment Duration: Oct 03, 2019 Frequency: At least 5 of 7 days/Wk (IRF) Estimated Hrs Per Day: 1.5 hours per day Patient and/or Family Agrees t: Yes Safety Risks/Education Patient Education: Correct Positioning Teaching Recipient: Patient Teaching Methods: Demonstration, Discussion Response to Teaching: Reinforcement Needed Time/GCodes Time In: 1335 Time Out: 1350 Total Billed Treatment Time: 15 Total Billed Treatment 1 visit EX RUY MCLEOD PT Oct 10, 2019 14:07
--- NOTE | 2019-10-10 15:25 | NUR ---
PT IS ON ROOM AIR. PT IS IN NO RESPIRATORY DISTRESS. Addendum: 10/10/19 at 1526 by ARA NESBITT RT Amended: Links added.
[2019-10-10 18:00] VITALS: BP 108/55
[2019-10-10] MEDS: ALPRAZolam 0.25 MG (XANAX) TAB PO PRN (21:20)
[2019-10-10] MEDS: MELATONIN 3 MG TABLET PO PRN (21:20)
[2019-10-11] MEDS: SUCRALFATE 1 GM (CARAFATE) TAB PO SCH ×4 (00:54→15:57)
--- NOTE | 2019-10-11 05:37 | PM&R Progress Note ---
Subjective HPI/CC On Admission Date Seen by Provider: Oct 11, 2019 Time Seen by Provider: 09:00 Subjective/Events-last exam 10/10/19: DC delayed by one day due to DME delivery 10/09/19: DC is planned tomorrow No issues Tolerating tube feedings Tylenol with Melatonin working very well for him at night 10/08/19: Bowels moving regularly Family expecting discharge Tuesday No pain is reported 10/07/19: Patient sleeps most of the time No falls No pain reported 10/06/19: Patient doing well No major issues 2 BM's 10/05/19: Pt had three bowel movements last night No bleeding noted Slides out of the chair so he remains in bed 10/04/19: Family training next week Overall feels like he is doing pretty well Sleepy today No falls 10/03/19: DC to daughter's house next week Working hard during therapy More alert today 10/02/19: Family at the bedside Xanax and Melatonin were given to help him sleep but he didnt sleep well and that is periodic for him No pain is reported Participating in therapy retirement placement pending 10/01/19: Pt was coughing a bit but lungs are clear and he wasn't coughing with me Labs good, Hgb 11.7 No rectal bleeding Maintain on Lovenox for DVT prophylaxis 09/30/19: Patient feels ok TF tolerated Checked meds and labs No pain reported 09/29/19: Daughter at the bedside Patient has difficulty communicating No pain reported Needs NHP 09/28/19: Needs to go to [place] No pain reported Slight smear of blood with BM so may not even be able to tolerate Lovenox DVT PPx dose 09/27/19: Went from bed to chair without a Sarah-lift today More alert today Had a BM three days ago so will start laxatives No nausea or vomiting Tolerating tube feedings Lovenox 40 Mg started for DVT prophylaxis He just can't seem to tolerate the therapeutic dose for AFIB because of GI bleeds 09/26/19: Insomnia much improved he slept very well last night Bowels are moving Tube feedings are tolerated since it is only one can at a time No falls Appears to be more motivated today 09/25/19: BP remains a little bit low, will replace ROLANDO hose Bowel and bladder incontinence noted today Peg tub will be utilized for increased fluid intake 09/24/19: Holding Lopressor due to orthostasis during PT today BP 125/70 after orthostasis episode resolved No nausea or vomiting Regular rhythm on exam 09/23/19: Tolerating TF well Lethargic is chronic No pain reported 09/22/19: BM yesterday Tolerating TF well No pain reported 09/21/19: Pt more talkative today No more bloody stools Two bowel movements last night were brown Decubitus ulcer on coccyx being monitored and managed 09/20/19: Pt sleeping most of the time Participating in therapy Tube feedings of one can every three hours is working a lot better for him, he is tolerating it better No more bloody stools Cardiology restarted Aspirin but Coumadin will continue to be held because he has had two GI bleeds in the past two weeks and cant withstand a colonoscopy prep Very complex case 09/19/19: Pt sleeps most of the time Will discuss disposition, I doubt any recovery potential Overall needs probably a custodial for long-term care 09/18/19: Insomnia is an issue Worked with PT today but seems to take a lot of naps during the day which disrupts the nighttime sleeping No pain is reported 09/17/19: Pt sleeps most of the time No major changes No bloody stools Off of Lovenox, Coumadin and Aspirin Second GI bleed in the last few weeks 09/16/19: No bloody stools today Hgb stable 10.3 Is not strong enough to undergo C-scope prep Dr Flores saw him this morning Holding ASA Lovenox Coumadin Had GI at [facility] also Decreased cognition 09/15/19: Patient had been doing pretty well when I rounded No more nausea and vomiting like yesterday Tube feeding was restarted slowly I stopped the Clinimix since tube feedings were started N.p.o. 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 Flores general surgery was consulted and checked hemoglobin and hematocrit. 09/14/19: Had nausea and vomiting all last night Needs IV fluids gently so we'll start that today Urinary incontinence noted No fecal incontinence Holding tube feedings for right now Barium swallow today at 11:30 INR 1.4 will increase dose and provide Lovenox 09/13/19: Patient doing pretty well today Sleeping currently Therapy worked with him today Modified Barium Swallow scheduled Hemoglobin 9.6 Disoriented at times Bowels moved yesterday Conferred with RN Reviewed Therapy notes Checked Meds and Labs Objective Exam Vital Signs Vital Signs Date Time Temp Pulse Resp B/P (MAP) Pulse Ox O2 Delivery O2 Flow Rate FiO2 10/11/19 17:20 36.4 94 16 120/72 95 Room Air Capillary Refill : Less Than 3 SecondsLess Than 3 Seconds General Appearance: No Apparent Distress, WD/WN, Chronically ill HEENT: PERRL/EOMI, Normal ENT Inspection, Pharynx Normal Neck: Full Range of Motion, Normal Inspection, Non Tender, Supple, Carotid Bruit Respiratory: Chest Non Tender, Lungs Clear, Normal Breath Sounds, No Accessory Muscle Use, No Respiratory Distress Cardiovascular: No Edema, No Gallop, No JVD, No Murmur, Normal Peripheral Pulses, Irregularly Irregular Gastrointestinal: Normal Bowel Sounds, No Organomegaly, No Pulsatile Mass, Non Tender, Soft Back: Normal Inspection, No CVA Tenderness, No Vertebral Tenderness Extremity: Normal Capillary Refill, Normal Inspection, Normal Range of Motion, Non Tender, No Calf Tenderness, Pedal Edema Neurologic/Psychiatric: Alert, Oriented x3, Normal Mood/Affect, jd edwards II-XII Norm as Tested, Aphasia, Facial Droop, Motor Weakness Skin: Normal Color, Warm/Dry Lymphatic: No Adenopathy Results/Procedures Lab Patient resulted labs reviewed. FIM Transfers Therapy Code Descriptions/Definitions Functional [place] Measure: 0=Not Assessed/NA 4=Minimal Assistance 1=Total Assistance 5=Supervision or Setup 2=Maximal Assistance 6=Modified [place] 3=Moderate Assistance 7=Complete IndependenceSCALE: Activities may be completed with or without assistive devices. 9-Ylnfykgpdb-ddtdrqf completes the activity by him/herself with no assistance from a helper. 5-Set-up or Clean-up Assistance-helper sets up or cleans up; patient completes activity. [place] assists only prior to or following the activity. 4-Supervision or Touching Assistance-helper provides verbal cues and/or touching/steadying and/or contact guard assistance as patient completes activity. Assistance may be provided throughout the activity or intermittently. 3-Partial/Moderate Assistance-helper does LESS THAN HALF the effort. [place] lifts, holds or supports trunk or limbs, but provides less than half the effort. 2-Substantial/Maximal Assistance-helper does MORE THAN HALF the effort. [place] lifts or holds trunk or limbs and provides more than half the effort. 5-Owqxpivqt-yorqcw does ALL the effort. Patient does none of the effort to complete the activity. Or, the assistance of 2 or more helpers is required for the patient to complete the activity. If activity was not attempted, code reason: 7-Patient Refused. 9-Not Applicable-not attempted and the patient did not perform the activity before the current illness, exacerbation or injury. 10-Not Attempted due to Environmental Limitations-(lack of equipment, weather restraints, etc.). 88-Not Attempted due to Medical Conditions or Safety Concerns. Roll Left to Right (QC): 2 Sit to Lying (QC): 2 Sit to Stand (QC): 2 Chair/Vni-ql-Phjuw Xfer(QC): 2 Car Transfer (QC): 2 Gait Training Does the Patient Walk?: No and Walking Goal NOT indicated Walk 10 feet (QC): 88 Walk 50 ft with 2 Turns(QC): 88 Walk 150 ft (QC): 88 Walking 10ft/uneven surface-QC: 88 Wheelchair Training Does the Pt Use a Wheelchair?: Yes Distance: 150'x2 Wheel 50 ft with 2 turns (QC): 3 Wheel 150 ft (QC): 3 Type of Wheelchair: Manual Stair Training 1 Step (curb) (QC): 88 4 Steps (QC): 88 12 Steps (QC): 88 Balance Picking up an Object (QC): 88 ADL-Treatment Eating (QC): 88 (PEG tube) Oral Hygiene (QC): 5 Bathing Location: L Arm, L Upper Leg, R Upper Leg, Chest, Abdomen Shower/Bathe Self (QC): 1 Upper Body Dressing (QC): 3 Lower Body Dressing (QC): 1 On/Off Footwear (QC): 2 Toileting Hygiene (QC): 1 Toilet Transfer (QC): 1 Assessment/Plan Assessment and Plan Assess & Plan/Chief Complaint Assessment: CVA Left sided weakness Left sided neglect PEG tube status Dysphagia Aspiration hx with PNA CAD AF Coumadin treatment GIB 09/14/19 Plan: IRF protocol ST to work on dysphagia TF to be maintained Coumadin treatment Cardiology evaluation 09/13/19: Continue aggressive treatment Barium Swallow Monitor Hemoglobin 09/14/19: Give gentle IV fluids Increase INR with Coumadin with Lovenox bridge Barium swallow today 09/15/2019: Monitor GI bleed Hold Coumadin and Lovenox and aspirin Hold tube feedings Consult general surgery for endoscopies Maintain n.p.o. status due to aspiration risk 09/16/19: Monitor Hgb NPO Aspiration risk TF gently 09/17/19: No major changes Sleeping most of the time Stay off blood thinners due to second GI bleed 09/18/19: Insomnia treatment Continue aggressive physical therapy 09/19/19: Disposition will be discussed in team conference Tube feedings are tolerated well No more bloody stools Scrotum seems to be bleeding at times 09/19/19: Continue tube feedings of 1 can every 3 hours Sleeps most of the time No more bloody stools Aspirin was restarted Two GI bleeds in less than 2 weeks precludes restarting Coumadin 09/21/19: No more bloody stools Bowels are now light brown Coccyx has alevan to help heal 09/22/19: TF working well when using 1 can at a time No pain reported Continue therapy 09/23/19: Maintain TF for now 1 can at at time Fall risk IRF protocol 09/24/19: Monitor orthostasis Monitor hemoglobin Appreciate Dietary input 09/25/19: Replace ROLANDO hose to limit orthostasis Increasing PEG tube fluid Noted bowel and bladder dysfunction today 09/26/19: TF to continue Increase therapy Monitor for pain and falls 09/27/19: TF continues and doing well No pain reported Fall risk 09/28/19: Needs NHP Monitor Lovenox complications 09/29/19: No bloody stools TF tolerated Needs NH 09/30/19: SNF admit TF maintained 10/01/19: Monitor coughing Labs stable Continue tube feedings senior living facility at discharge 10/02/19: retirement placement required Insomnia treatment the best we can 10/03/19: Keep bed at 45 degree angle to decrease aspiration Disposition of family next week 10/04/19: Family education training Discharge with daughter next week 10/05/19: Monitor loose stools Monitor for any bleeding in stools Slides out of chair easily 10/06/19: Monitor closely TF tolerated DC with family next week 10/07/19: Check labs in am Monitor for falls 10/08/19: Discharge is planned for Tuesday with family Monitor blood pressure Continue current treatment 10/09/19: Discharge is planned for tomorrow Tube feedings are tolerated Tylenol and Melatonin seems to work well for him 10/10/19: Delay discharge until tomorrow until DME has arrived at house Monitor closely (1) CVA (cerebral vascular accident) Qualifiers: Qualified Codes: I63.9 - Cerebral infarction, unspecified (2) Atrial fibrillation with normal ventricular rate (3) CAD (coronary artery disease) (4) Stented coronary artery (5) Dysphagia (6) Left-sided weakness (7) At risk for aspiration (8) PEG (percutaneous endoscopic gastrostomy) status (9) On warfarin therapy (10) Left-sided neglect (11) Facial droop KENZIE MORENO DO Oct 11, 2019 05:37
[2019-10-11] MEDS: LEVOTHYROXINE 75 MCG (LEVOTHROID) TABLET PO SCH (06:11)
[2019-10-11 06:21] VITALS: BP 128/60
--- NOTE | 2019-10-11 08:53 | Therapy Team Discharge Summary ---
Therapy Discharge Summary Discharge Recommendations Date of Discharge Occupational Therapy Decreased Activ Tolerance, Decreased Safety Aware, Decreased UE Strength, Dependent Transfers, Impaired Bed Mobility, Impaired Cognition, Impaired Coordination, Impaired Funct Balance, Impaired I ADL's, Impaired Self-Care Skil ls, Restricted Funct UE ROM, Visual-Perceptual Deficit Speech-Language Pathology Patient was admitted to the ARU from [facility]. He was in their care for approximately 3 weeks following a CVA. Patient presented with cognitive deficits and apraxia of speech. Patient received ST services while admitted to the ARU for cognitive and speech. Patient progressed slightly, however his progress was intermittent day to day depending upon his level of alert. Patient is discharging this date to his home with family and home health services. PT Medical Fee Clerk Goals Ch[facility] Goals PT [facility]cf Goals Time Frame: Oct 03, 2019 Roll Left to Right (QC): 3 Sit to Lying (QC): 3 Lying-Sitting on Side/Bed(QC): 3 Sit to Stand (QC): 3 Chair/Gdi-hv-Jjhyr Xfer(QC): 3 Car Transfer (QC): 3 Does the Patient Walk: No and Walking Goal NOT indicated Walk 10 feet (QC): 88 Walk 10ft-Uneven Surface(QC): 88 Walk 50ft with 2 Turns (QC): 88 Walk 150 ft (QC): 88 Wheel 50 feet with 2 turns (QC: 3 1 Step (curb) (QC): 88 4 Steps (QC): 88 12 Steps (QC): 88 Picking up an Object (QC): 88 OT Medical Fee Clerk Goals [facility] Goals Time Frame: Oct 03, 2019 Eating (QC): 4 (not met) Oral Hygiene (QC): 4 (met) Shower/Bathe Self (QC): 3 (not met) Upper Body Dressing (QC): 3 (met) Lower Body Dressing (QC): 2 (not met) On/Off Footwear (QC): 2 (met) Toileting Hygiene (QC): 3 (not met) Toilet/Commode Transfer (QC): 3 Additional Goals: 1-Demonstrate ADL Tasks, 2-Verbalize Understanding, 3- ImproveStrength/Aliyah 1=Demonstrate adherence to instructed precautions during ADL tasks. 2=Patient will verbalize/demonstrate understanding of assistive devices/modifications for ADL. 3=Patient will improve strength/tolerance for activity to enable patient to perform ADL's. Speech Medical Fee Clerk Goals Medical Fee Clerk Goals Patient will improve speech production for effective communication of his wants/needs. Patient will maintain adequate nutrition/hydration via PEG and/or oral intake. EARNEST MUNOZ Oct 11, 2019 08:53
[2019-10-11] MEDS: PANTOPRAZOLE 2 MG/ML LIQUID 200 ML (PROTONIX) PEG SCH ×3 (08:54)
[2019-10-11] MEDS: LACTOBACILLUS ACIDOPHILUS (PROBIOTIC) CAPSULE PEG SCH (08:54)
[2019-10-11] MEDS: ASPIRIN 81 MG CHEW (CHILDREN'S ASA) PO SCH (08:54)
[2019-10-11] MEDS: polyethylene glycoL POWDER 17 GM (MIRALAX) PACK PO SCH (09:00)
[2019-10-11] MEDS: SENNA W/DOCUSATE (SENOKOT S) TABLET PO SCH (09:00)
[2019-10-11] MEDS: ENOXAPARIN 40 MG/0.4 ML (LOVENOX) SYR SC SCH (09:30)
--- NOTE | 2019-10-11 10:01 | Occupational Ther Daily Note ---
OT Current Status-Daily Note Subjective Pt alert and talkative today. Pt to discharge today. Issues with equipment being delivered hindered discharge yesterday. Mental Status/Objective Patient Orientation: Person, Place, Time, Situation ADL-Treatment Assisted pt with bed bath today. Pt able to complete areas that he can reach while in bed sitting up, requires verbal cues to initiate. Assist to cleanse lower legs and buttocks. Assist x2 to roll and stay on side to complete lower body dressing. After session, pt lying in bed with call light/phone in reach. All needs met in room. Therapy Code Descriptions/Definitions Functional [place] Measure: 0=Not Assessed/NA 4=Minimal Assistance 1=Total Assistance 5=Supervision or Setup 2=Maximal Assistance 6=Modified [place] 3=Moderate Assistance 7=Complete IndependenceSCALE: Activities may be completed with or without assistive devices. 8-Bkcfbddted-fbvgzdk completes the activity by him/herself with no assistance from a helper. 5-Set-up or Clean-up Assistance-helper sets up or cleans up; patient completes activity. [place] assists only prior to or following the activity. 4-Supervision or Touching Assistance-helper provides verbal cues and/or touching/steadying and/or contact guard assistance as patient completes activity. Assistance may be provided throughout the activity or intermittently. 3-Partial/Moderate Assistance-helper does LESS THAN HALF the effort. [place] lifts, holds or supports trunk or limbs, but provides less than half the effort. 2-Substantial/Maximal Assistance-helper does MORE THAN HALF the effort. [place] lifts or holds trunk or limbs and provides more than half the effort. 2-Kkkygxshc-cslbwm does ALL the effort. Patient does none of the effort to complete the activity. Or, the assistance of 2 or more helpers is required for the patient to complete the activity. If activity was not attempted, code reason: 7-Patient Refused. 9-Not Applicable-not attempted and the patient did not perform the activity before the current illness, exacerbation or injury. 10-Not Attempted due to Environmental Limitations-(lack of equipment, weather restraints, etc.). 88-Not Attempted due to Medical Conditions or Safety Concerns. OT Short Term Goals Short Term Goals Time Frame: Sep 19, 2019 Shower/bathe self: 2 Upper body dressin Lower body dressin OT Longterm Goals Marketing Programs Manager Goals Time Frame: Oct 03, 2019 Eating (QC): 4 (not met) Oral Hygiene (QC): 4 (met) Toileting Hygiene (QC): 3 (not met) Shower/Bathe Self (QC): 3 (not met) Upper Body Dressing (QC): 3 (met) Lower Body Dressing (QC): 2 (not met) On/Off Footwear (QC): 2 (met) Additional Goals: 1-Demonstrate ADL Tasks, 2-Verbalize Understanding, 3- ImproveStrength/Aliyah 1=Demonstrate adherence to instructed precautions during ADL tasks. 2=Patient will verbalize/demonstrate understanding of assistive devices/modifications for ADL. 3=Patient will improve strength/tolerance for activity to enable patient to perform ADL's. OT Education/Plan Problem List/Assessment Assessment: Decreased Activ Tolerance, Decreased Safety Aware, Decreased UE Strength, Dependent Transfers, Impaired Bed Mobility, Impaired Coordination, Impaired Funct Balance, Impaired I ADL's, Impaired Self-Care Skills, Restricted Funct UE ROM, Visual-Perceptual Deficit Discharge Recommendations Plan/Recommendations: Discharge/Goals Met Treatment Plan/Plan of Care Patient would benefit from OT for education, treatment and training to promote independence in ADL's, mobility, safety and/or upper extremity function for ADL's. Plan of Care: ADL Retraining, Caregiver Training, Functional Mobility, Group Exercise/Act as Ind, Orthotic Fitting/Training, UE Funct Exercise/Act, UE Neuromus Re-Ed/Coord, Visual/Perceptual Retrain, W/C Management Training Treatment Duration: Oct 03, 2019 Frequency: At least 5 of 7 days/Wk (IRF) Estimated Hrs Per Day: 1.5 hours per day Agreement: Yes Rehab Potential: Poor Time/GCodes Start Time: 07:30 Stop Time: 08:00 Total Time Billed (hr/min): 30 Billed Treatment Time 1 visit-ADL 2 (30 min) CALLIE LARIOS Oct 11, 2019 10:01
--- NOTE | 2019-10-11 10:16 | Therapy Team Discharge Summary ---
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 Upon eval, pt TD with: showering, UB dressing, LB dressing, footwear, and toileting with L side neglect, decreased AROM and sensation in LUE and delayed response time/ direction following. Pt and OT work toward higher fx IND through AROM/ PROM, NM retraining, fx activities, ADL tasks, attention/ crossing midline, balance, w/c mob, safety and family training, and positioning. Pt d/c's home with recommendations of HHOT, karson lift and hospital bed/ w/c use. Pt did not meet LTGs, but increased in oral care (s/u), in UB dressing (mod A), footwear (max A) and was TD with tasks such as toileting, transfers, and LB dressing as it required the assist of 2 or use of karson. D/c OT at this time. Decreased Activ Tolerance, Decreased Safety Aware, Decreased UE Strength, Dependent Transfers, Impaired Bed Mobility, Impaired Coordination, Impaired Funct Balance, Impaired I ADL's, Impaired Self-Care Skills, Restricted Funct UE ROM, Visual-Perceptual Deficit PT Clinical Training Coordinator Goals Usp Goals PT Usp Goals Time Frame: Oct 03, 2019 Roll Left to Right (QC): 3 Sit to Lying (QC): 3 Lying-Sitting on Side/Bed(QC): 3 Sit to Stand (QC): 3 Chair/Mow-ej-Vhauu Xfer(QC): 3 Car Transfer (QC): 3 Does the Patient Walk: No and Walking Goal NOT indicated Walk 10 feet (QC): 88 Walk 10ft-Uneven Surface(QC): 88 Walk 50ft with 2 Turns (QC): 88 Walk 150 ft (QC): 88 Wheel 50 feet with 2 turns (QC: 3 1 Step (curb) (QC): 88 4 Steps (QC): 88 12 Steps (QC): 88 Picking up an Object (QC): 88 OT Usp Goals Clinical Training Coordinator Goals Time Frame: Oct 03, 2019 Eating (QC): 4 (not met) Oral Hygiene (QC): 4 (met) Shower/Bathe Self (QC): 3 (not met) Upper Body Dressing (QC): 3 (met) Lower Body Dressing (QC): 2 (not met) On/Off Footwear (QC): 2 (met) Toileting Hygiene (QC): 3 (not met) Toilet/Commode Transfer (QC): 3 Additional Goals: 1-Demonstrate ADL Tasks, 2-Verbalize Understanding, 3- ImproveStrength/Aliyah 1=Demonstrate adherence to instructed precautions during ADL tasks. 2=Patient will verbalize/demonstrate understanding of assistive devices/modifications for ADL. 3=Patient will improve strength/tolerance for activity to enable patient to perform ADL's. Speech Clinical Training Coordinator Goals Usp Goals Patient will improve speech production for effective communication of his wants/needs. Patient will maintain adequate nutrition/hydration via PEG and/or oral intake. TRINI STOVER OTR Oct 11, 2019 10:16
[2019-10-11] MEDS: DOCUSATE SODIUM 100 MG (COLACE) CAP PO SCH (10:35)
--- NOTE | 2019-10-11 11:55 | Discharge Summary ---
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 status due to aspiration risk 09/16/19: Monitor Hgb NPO Aspiration risk TF gently 09/17/19: No major changes Sleeping most of the time Stay off blood thinners due to second GI bleed 09/18/19: Insomnia treatment Continue aggressive physical therapy 09/19/19: Disposition will be discussed in team conference Tube feedings are tolerated well No more bloody stools Scrotum seems to be bleeding at times 09/19/19: Continue tube feedings of 1 can every 3 hours Sleeps most of the time No more bloody stools Aspirin was restarted Two GI bleeds in less than 2 weeks precludes restarting Coumadin 09/21/19: No more bloody stools Bowels are now light brown Coccyx has alevan to help heal 09/22/19: TF working well when using 1 can at a time No pain reported Continue therapy 09/23/19: Maintain TF for now 1 can at at time Fall risk IRF protocol 09/24/19: Monitor orthostasis Monitor hemoglobin Appreciate Dietary input 09/25/19: Replace ROLANDO hose to limit orthostasis Increasing PEG tube fluid Noted bowel and bladder dysfunction today 09/26/19: TF to continue Increase therapy Monitor for pain and falls 09/27/19: TF continues and doing well No pain reported Fall risk 09/28/19: Needs NHP Monitor Lovenox complications 09/29/19: No bloody stools TF tolerated Needs NH 09/30/19: SNF admit TF maintained 10/01/19: Monitor coughing Labs stable Continue tube feedings [facility] discharge 10/02/19: long term placement required Insomnia treatment the best we can 10/03/19: Keep bed at 45 degree angle to decrease aspiration Disposition of family next week 10/04/19: Family education training Discharge with daughter next week 10/05/19: Monitor loose stools Monitor for any bleeding in stools Slides out of chair easily 10/06/19: Monitor closely TF tolerated DC with family next week 10/07/19: Check labs in am Monitor for falls 10/08/19: Discharge is planned for Tuesday with family Monitor blood pressure Continue current treatment 10/09/19: Discharge is planned for tomorrow Tube feedings are tolerated Tylenol and Melatonin seems to work well for him 10/10/19: Delay discharge until tomorrow until DME has arrived at house Monitor closely Discharge Summary Discharge Physical Examination Allergies: Coded Allergies: No Known Drug Allergies (Unverified , 09/12/19) Vitals & I&Os Vital Signs Date Time Temp Pulse Resp B/P (MAP) Pulse Ox O2 Delivery O2 Flow Rate FiO2 10/11/19 17:20 36.4 94 16 120/72 95 Room Air General Appearance: Alert, Oriented X3 Respiratory: Normal Air Movement Cardiovascular: Regular Rate Abdominal: Normal Bowel Sounds Neuro: Normal Speech Psych/Mental Status: Mental Status NL Hospital Course Was the Problem List Reviewed?: Yes Patient had an lengthy hospital course for 30 days after arriving from [place] after catastrophic CVA. Dysphagia persisted requiring PEG tube placement and was maintained on TF which required multiple changes but able to tolerated 1 can every 4 hours along with water before and after. BM remained stable. Melena occurred with OAC which he was too weak and complicated to undergo endoscopy. Meds were maintained and pain was well controlled and patient was assessed to be optimized on therapy and was DC to daughter's house in . Labs (last 24 hrs) Laboratory Tests 09/13/19 07:42: White Blood Count 7.7, Red Blood Count 3.52L, Hemoglobin 9.6L, Hematocrit 32L, Mean Corpuscular Volume 90, Mean Corpuscular Hemoglobin 27, Mean Corpuscular Hemoglobin Concent 30L, Red Cell Distribution Width 16.5H, Platelet Count 216, Mean Platelet Volume 10.4, Neutrophils (%) (Auto) 70, Lymphocytes (%) (Auto) 16, Monocytes (%) (Auto) 10, Eosinophils (%) (Auto) 3, Basophils (%) (Auto) 1, Neutrophils # (Auto) 5.4, Lymphocytes # (Auto) 1.3, Monocytes # (Auto) 0.8, Eosinophils # (Auto) 0.2, Basophils # (Auto) 0.1, Prothrombin Time 15.9H, INR Co mment 1.2, Sodium Level 137, Potassium Level 4.0, Chloride Level 104, Carbon Dioxide Level 22, Anion Gap 11, Blood Urea Nitrogen 24H, Creatinine 0.84, Estimat Glomerular Filtration Rate > 60, BUN/Creatinine Ratio 29, Glucose Level 116H, Calcium Level 8.5, Corrected Calcium 9.0, Total Bilirubin 0.4, Aspartate Amino Transf (AST/SGOT) 34, Alanine Aminotransferase (ALT/SGPT) 33, Alkaline Phosphatase 71, Total Protein 6.2L, Albumin 3.4 09/14/19 08:19: White Blood Count 6.9, Red Blood Count 3.74L, Hemoglobin 10.2L, Hematocrit 34L, Mean Corpuscular Volume 90, Mean Corpuscular Hemoglobin 27, Mean Corpuscular Hem oglobin Concent 30L, Red Cell Distribution Width 17.1H, Platelet Count 252, Mean Platelet Volume 10.8H, Neutrophils (%) (Auto) 69, Lymphocytes (%) (Auto) 17, Monocytes (%) (Auto) 10, Eosinophils (%) (Auto) 3, Basophils (%) (Auto) 1, Neutrophils # (Auto) 4.8, Lymphocytes # (Auto) 1.2, Monocytes # (Auto) 0.7, Eosinophils # (Auto) 0.2, Basophils # (Auto) 0.0, Prothrombin Time 17.2H, INR Comment 1.4, Sodium Level 138, Potassium Level 4.3, Chloride Level 102, Carbon Dioxide Level 23, Anion Gap 13, Blood Urea Nitrogen 20H, Creatinine 0.94, Estima t Glomerular Filtration Rate > 60, BUN/Creatinine Ratio 21, Glucose Level 103, Calcium Level 9.1, Corrected Calcium 9.5, Total Bilirubin 0.4, Aspartate Amino Transf (AST/SGOT) 45H, Alanine Aminotransferase (ALT/SGPT) 43, Alkaline Phosp hatase 73, Total Protein 6.5, Albumin 3.5 09/15/19 04:35: Prothrombin Time 19.4H, INR Comment 1.6H 09/15/19 15:41: Hemoglobin 9.5L, Hematocrit 31L 09/16/19 04:33: White Blood Count 7.3, Red Blood Count 3.78L, Hemoglobin 10.3L, Hematocrit 33L, Mean Corpuscular Volume 88, Mean Corpuscular Hemoglobin 27, Mean Corpuscular Hemoglobin Concent 31L, Red Cell Distribution Width 16.5H, Platelet Count 288, Mean Platelet Volume 10.5H, Prothrombin Time 19.6H, INR Comment 1.6H 09/17/19 04:49: White Blood Count 7.8, Red Blood Count 3.72L, Hemoglobin 10.0L, Hematocrit 32L, Mean Corpuscular Volume 87, Mean Corpuscular Hemoglobin 27, Mean Corpuscular Hemoglobin Concent 31L, Red Cell Distribution Width 16.0H, Platelet Count 296, Mean Platelet Volume 10.4, Prothrombin Time 17.4H, INR Comment 1.4, Neutrophils (%) (Auto) 67, Lymphocytes (%) (Auto) 18, Monocytes (%) (Auto) 12, Eosinophils (%) (Auto) 3, Basophils (%) (Auto) 1, Neutrophils # (Auto) 5.2, Lymphocytes # (Auto) 1.4, Monocytes # (Auto) 0.9, Eosinophils # (Auto) 0.2, Basophils # (Auto) 0.0, Sodium Level 135, Potassium Level 4.2, Chloride Level 102, Carbon Dioxide Level 25, Anion Gap 8, Blood Urea Nitrogen 28H, Creatinine 0.93, Estimat Glomerular Filtration Rate > 60, BUN/Creatinine Ratio 30, Glucose Level 92, Calcium Level 8.6, Corrected Calcium 9.1, Total Bilirubin 0.5, Aspartate Amino Transf (AST/SGOT) 25, Alanine Aminotransferase (ALT/SGPT) 27, Alkaline P hosphatase 73, Total Protein 6.2L, Albumin 3.4 09/20/19 04:34: White Blood Count 8.0, Red Blood Count 3.71L, Hemoglobin 10.0L, Hematocrit 32L, Mean Corpuscular Volume 87, Mean Corpuscular Hemoglobin 27, Mean Corpuscular Hemoglobin Concent 31L, Red Cell Distribution Width 16.1H, Platelet Count 294, Mean Platelet Volume 10.3 09/24/19 05:46: White Blood Count 8.7, Red Blood Count 4.18L, Hemoglobin 11.1L, Hematocrit 35L, Mean Corpuscular Volume 85, Mean Corpuscular Hemoglobin 27, Mean Corpuscular Hemoglobin Concent 31L, Red Cell Distribution Width 15.9H, Platelet Count 298, Mean Platelet Volume 11.2H, Neutrophils (%) (Auto) 71, Lymphocytes (%) (Auto) 16, Monocytes (%) (Auto) 9, Eosinophils (%) (Auto) 4, Basophils (%) (Auto) 1, Neutrophils # (Auto) 6.2, Lymphocytes # (Auto) 1.4, Monocytes # (Auto) 0.8, Eosinophils # (Auto) 0.3, Basophils # (Auto) 0.1, Sodium Level 139, Potassium Level 4.4, Chloride Level 106, Carbon Dioxide Level 26, Anion Gap 7, Blood Urea Nitrogen 17, Creatinine 0.92, Estimat Glomerular Filtration Rate > 60, BUN/Creatinine Ratio 18, Glucose Level 96, Calcium Level 9.4, Corrected Calcium 9.8, Total Bilirubin 0.4, Aspartate Amino Transf (AST/SGOT) 30, Alanine Aminotransferase (ALT/SGPT) 26, Alkaline Phosphatase 82, Total Protein 6.3L, Albumin 3.5 10/01/19 05:22: White Blood Count 7.0, Red Blood Count 4.49, Hemoglobin 11.7L, Hematocrit 38L, Mean Corpuscular Volume 84, Mean Corpuscular Hemoglobin 26, Mean Corpuscular Hemoglobin Concent 31L, Red Cell Distribution Width 15.9H, Platelet Count 292, Mean Platelet Volume 11.1H, Neutrophils (%) (Auto) 65, Lymphocytes (%) (Auto) 20, Monocytes (%) (Auto) 11, Eosinophils (%) (Auto) 3, Basophils (%) (Auto) 1, Neutrophils # (Auto) 4.6, Lymphocytes # (Auto) 1.4, Monocytes # (Auto) 0.8, Eosinophils # (Auto) 0.2, Basophils # (Auto) 0.1, Sodium Level 139, Potassium Level 3.6, Chloride Level 103, Carbon Dioxide Level 26, Anion Gap 10, Blood Urea Nitrogen 19H, Creatinine 0.98, Estimat Glomerular Filtration Rate > 60, BUN/Creatinine Ratio 19, Glucose Level 89, Calcium Level 9.1, Corrected Calcium 9.3, Total Bilirubin 0.5, Aspartate Amino Transf (AST/SGOT) 23, Alanine Aminotransferase (ALT/SGPT) 22, Alkaline Phosphatase 92, Total Protein 6.9, Albu min 3.8 8/31/20 05:54: White Blood Count 6.5, Red Blood Count 3.56L, Hemoglobin 10.7L, Hematocrit 32L, Mean Corpuscular Volume 90, Mean Corpuscular Hemoglobin 30, Mean Corpuscular Hemoglobin Concent 33, Red Cell Distribution Width 16.9H, Platelet Count 468H, Mean Platelet Volume 8.7, Neutrophils (%) (Auto) 67, Lymphocytes (%) (Auto) 17, Monocytes (%) (Auto) 11, Eosinophils (%) (Auto) 4, Basophils (%) (Auto) 1, Neutrophils # (Auto) 4.4, Lymphocytes # (Auto) 1.1, Monocytes # (Auto) 0.7, Eosinophils # (Auto) 0.3, Basophils # (Auto) 0.0, Sodium Level 135, Potassium Level 4.2, Chloride Level 105, Carbon Dioxide Level 20L, Anion Gap 10, Blood Urea Nitrogen 12, Creatinine 0.60, Estimat Glomerular Filtration Rate > 60, BUN/Creatinine Ratio 20, Glucose Level 99, Calcium Level 9.0, Corrected Calcium 9.7, Total Bilirubin 0.2, Aspartate Amino Transf (AST/SGOT) 31, Alanine Ami notransferase (ALT/SGPT) 26, Alkaline Phosphatase 62, Total Protein 6.6, Albumin 3.1L Pending Labs Laboratory Tests 09/13/19 07:42: White Blood Count 7.7, Red Blood Count 3.52, Hemoglobin 9.6, Hematocrit 32, Mean Corpuscular Volume 90, Mean Corpuscular Hemoglobin 27, Mean Corpuscular Hemoglobin Concent 30, Red Cell Distribution Width 16.5, Platelet Count 216, Mean Platelet Volume 10.4, Neutrophils (%) (Auto) 70, Lymphocytes (%) (Auto) 16, Monocytes (%) (Auto) 10, Eosinophils (%) (Auto) 3, Basophils (%) (Auto) 1, Neutrophils # (Auto) 5.4, Lymphocytes # (Auto) 1.3, Monocytes # (Auto) 0.8, Eosinophils # (Auto) 0.2, Basophils # (Auto) 0.1, Prothrombin Time 15.9, INR Comment 1.2, Sodium Level 137, Potassium Level 4.0, Chloride Level 104, Carbon Dioxide Level 22, Anion Gap 11, Blood Urea Nitrogen 24, Creatinine 0.84, Estimat Glomerular Filtration Rate > 60, BUN/Creatinine Ratio 29, Glucose Level 116, Calcium Level 8.5, Corrected Calcium 9.0, Total Bilirubin 0.4, Aspartate Amino Transf (AST/SGOT) 34, Alanine Aminotransferase (ALT/SGPT) 33, Alkaline Phosphatase 71, Total Protein 6.2, Albumin 3.4 09/14/19 08:19: White Blood Count 6.9, Red Blood Count 3.74, Hemoglobin 10.2, Hematocrit 34, Mean Corpuscular Volume 90, Mean Corpuscular Hemoglobin 27, Mean Corpuscular Hemoglobin Concent 30, Red Cell Distribution Width 17.1, Platelet Count 252, Mean Platelet Volume 10.8, Neutrophils (%) (Auto) 69, Lymphocytes (%) (Auto) 17, Monocytes (%) (Auto) 10, Eosinophils (%) (Auto) 3, Basophils (%) (Auto) 1, Neutrophils # (Auto) 4.8, Lymphocytes # (Auto) 1.2, Monocytes # (Auto) 0.7, Eosinophils # (Auto) 0.2, Basophils # (Auto) 0.0, Prothrombin Time 17.2, INR Comment 1.4, Sodium Level 138, Potassium Level 4.3, Chloride Level 102, Carbon Dioxide Level 23, Anion Gap 13, Blood Urea Nitrogen 20, Creatinine 0.94, Estimat Glomerular Filtration Rate > 60, BUN/Creatinine Ratio 21, Glucose Level 103, Calcium Level 9.1, Corrected Calcium 9.5, Total Bilirubin 0.4, Aspartate Amino Transf (AST/SGOT) 45, Alanine Aminotransferase (ALT/SGPT) 43, Alkaline Phosphatase 73, Total Protein 6.5, Albumin 3.5 09/15/19 04:35: Prothrombin Time 19.4, INR Comment 1.6 09/15/19 15:41: Hemoglobin 9.5, Hematocrit 31 09/16/19 04:33: White Blood Count 7.3, Red Blood Count 3.78, Hemoglobin 10.3, Hematocrit 33, Mean Corpuscular Volume 88, Mean Corpuscular Hemoglobin 27, Mean Corpuscular Hemoglobin Concent 31, Red Cell Distribution Width 16.5, Platelet Count 288, Mean Platelet Volume 10.5, Prothrombin Time 19.6, INR Comment 1.6 09/17/19 04:49: White Blood Count 7.8, Red Blood Count 3.72, Hemoglobin 10.0, Hematocrit 32, Mean Corpuscular Volume 87, Mean Corpuscular Hemoglobin 27, Mean Corpuscular Hemoglobin Concent 31, Red Cell Distribution Width 16.0, Platelet Count 296, Mean Platelet Volume 10.4, Prothrombin Time 17.4, INR Comment 1.4, Neutrophils (%) (Auto) 67, Lymphocytes (%) (Auto) 18, Monocytes (%) (Auto) 12, Eosinophils (%) (Auto) 3, Basophils (%) (Auto) 1, Neutrophils # (Auto) 5.2, Lymphocytes # (Auto) 1.4, Monocytes # (Auto) 0.9, Eosinophils # (Auto) 0.2, Basophils # (Auto) 0.0, Sodium Level 135, Potassium Level 4.2, Chloride Level 102, Carbon Dioxide Level 25, Anion Gap 8, Blood Urea Nitrogen 28, Creatinine 0.93, Estimat Glomerular Filtration Rate > 60, BUN/Creatinine Ratio 30, Glucose Level 92, Calcium Level 8.6, Corrected Calcium 9.1, Total Bilirubin 0.5, Aspartate Amino Transf (AST/SGOT) 25, Alanine Aminotransferase (ALT/SGPT) 27, Alkaline Phosphatase 73, Total Protein 6.2, Albumin 3.4 09/20/19 04:34: White Blood Count 8.0, Red Blood Count 3.71, Hemoglobin 10.0, Hematocrit 32, Mean Corpuscular Volume 87, Mean Corpuscular Hemoglobin 27, Mean Corpuscular Hemoglobin Concent 31, Red Cell Distribution Width 16.1, Platelet Count 294, Mean Platelet Volume 10.3 09/24/19 05:46: White Blood Count 8.7, Red Blood Count 4.18, Hemoglobin 11.1, Hematocrit 35, Mean Corpuscular Volume 85, Mean Corpuscular Hemoglobin 27, Mean Corpuscular Hemoglobin Concent 31, Red Cell Distribution Width 15.9, Platelet Count 298, M octavio Platelet Volume 11.2, Neutrophils (%) (Auto) 71, Lymphocytes (%) (Auto) 16, Monocytes (%) (Auto) 9, Eosinophils (%) (Auto) 4, Basophils (%) (Auto) 1, Neutrophils # (Auto) 6.2, Lymphocytes # (Auto) 1.4, Monocytes # (Auto) 0.8, Eosinophils # (Auto) 0.3, Basophils # (Auto) 0.1, Sodium Level 139, Potassium Level 4.4, Chloride Level 106, Carbon Dioxide Level 26, Anion Gap 7, Blood Urea Nitrogen 17, Creatinine 0.92, Estimat Glomerular Filtration Rate > 60, BUN/Creatinine Ratio 18, Glucose Level 96, Calcium Level 9.4, Corrected Calcium 9.8, Total Bilirubin 0.4, Aspartate Amino Transf (AST/SGOT) 30, Alanine Aminotransferase (ALT/SGPT) 26, Alkaline Phosphatase 82, Total Protein 6.3, Albumin 3.5 10/01/19 05:22: White Blood Count 7.0, Red Blood Count 4.49, Hemoglobin 11.7, Hematocrit 38, Mean Corpuscular Volume 84, Mean Corpuscular Hemoglobin 26, Mean Corpuscular Hemoglobin Concent 31, Red Cell Distribution Width 15.9, Platelet Count 292, Mean Platelet Volume 11.1, Neutrophils (%) (Auto) 65, Lymphocytes (%) (Auto) 20, Monocytes (%) (Auto) 11, Eosinophils (%) (Auto) 3, Basophils (%) (Auto) 1, Neutrophils # (Auto) 4.6, Lymphocytes # (Auto) 1.4, Monocytes # (Auto) 0.8, Eosinophils # (Auto) 0.2, Basophils # (Auto) 0.1, Sodium Level 139, Potassium Level 3.6, Chloride Level 103, Carbon Dioxide Level 26, Anion Gap 10, Blood Urea Nitrogen 19, Creatinine 0.98, Estimat Glomerular Filtration Rate > 60, BUN/Creatinine Ratio 19, Glucose Level 89, Calcium Level 9.1, Corrected Calcium 9.3, Total Bilirubin 0.5, Aspartate Amino Transf (AST/SGOT) 23, Alanine Aminotransferase (ALT/SGPT) 22, Alkaline Phosphatase 92, Total Protein 6.9, Albumin 3.8 10/08/19 05:54: White Blood Count 6.5, Red Blood Count 3.56, Hemoglobin 10.7, Hematocrit 32, Mean Corpuscular Volume 90, Mean Corpuscular Hemoglobin 30, Mean Corpuscular Hemoglobin Concent 33, Red Cell Distribution Width 16.9, Platelet Count 468, Mean Platelet Volume 8.7, Neutrophils (%) (Auto) 67, Lymphocytes (%) (Auto) 17, Monocytes (%) (Auto) 11, Eosinophils (%) (Auto) 4, Basophils (%) (Auto) 1, Neutrophils # (Auto) 4.4, Lymphocytes # (Auto) 1.1, Monocytes # (Auto) 0.7, Eosinophils # (Auto) 0.3, Basophils # (Auto) 0.0, Sodium Level 135, Potassium Level 4.2, Chloride Level 105, Carbon Dioxide Level 20, Anion Gap 10, Blood Urea Nitrogen 12, Creatinine 0.60, Estimat Glomerular Filtration Rate > 60, BUN/Creatinine Ratio 20, Glucose Level 99, Calcium Level 9.0, Corrected Calcium 9.7, Total Bilirubin 0.2, Aspartate Amino Transf (AST/SGOT) 31, Alanine Aminotransferase (ALT/SGPT) 26, Alkaline Phosphatase 62, Total Protein 6.6, Albumin 3.1 Discharge Home Medications: Active Scripts Active Sucralfate 1 Gm Tablet 1 Gm PO ACHS 30 Days Jevity 1.5 Dru Liquid (Lactose-Reduced Food/Fiber) 237 Ml Liquid 237 Ml PEG 6 TIMES DAILY flush with 70ml tap water before and after Jevity Omeprazole-Bicarb 20-1,680 Pkt (Omeprazole/Sodium Bicarbonate) 1 Each Packet 1 Each PEG BID Synthroid (Levothyroxine Sodium) 75 Mcg Tablet 150 Mcg PEG DAILY@0700 Transderm-Scop (Scopolamine) 1 Each Patch.td72 1.5 Mg TD Q72H Atorvastatin Calcium 80 Mg Tablet 80 Mg PEG HS Aspirin 81 Mg Tab.chew 81 Mg PEG DAILY Enoxaparin Sodium 40 Mg/0.4 Ml Syringe 40 Mg SC Q24H Tylenol (Acetaminophen) 325 Mg Capsule 650 Mg PEG Q6H PRN Reported Multivitamin 1 Each Tablet 1 Each PO DAILY Instructions to patient/family Please see electronic discharge instructions given to patient. Diagnosis/Problems Diagnosis/Problems (1) CVA (cerebral vascular accident) Qualifiers: Qualified Codes: I63.9 - Cerebral infarction, unspecified (2) Atrial fibrillation with normal ventricular rate (3) CAD (coronary artery disease) (4) Stented coronary artery (5) Dysphagia (6) Left-sided weakness (7) At risk for aspiration (8) PEG (percutaneous endoscopic gastrostomy) status (9) On warfarin therapy (10) Left-sided neglect (11) Facial droop Clinical Quality Measures DVT/VTE Risk/Contraindication: Risk Factor Score Per Nursin RFS Level Per Nursing on Admit: 4+=Very High KENZIE MORENO DO Oct 11, 2019 11:55
--- NOTE | 2019-10-11 13:49 | Therapy Team Discharge Summary ---
Therapy Discharge Summary Discharge Recommendations Date of Discharge Physical Therapy Patient came to rehab with a CVA. Upon evaluation patient was dependent for all mobility including WC. Patient has been performing bed mobility and transfer training, balance and endurance training,functional strengthening, WC mobility training, and education. Patient has made poor progress and has not met any of his retirement goals. Now, patient is max assist with bed mobility and transfers, propels WC with min assist. Patient is being discharged from this facility today and will be discharged from PT at this time. Occupational Therapy Decreased Activ Tolerance, Decreased Safety Aware, Decreased UE Strength, Dependent Transfers, Impaired Bed Mobility, Impaired Coordination, Impaired Funct Balance, Impaired I ADL's, Impaired Self-Care Skills, Restricted Funct UE ROM, Visual-Perceptual Deficit PT Software Application Tester Goals Software Application Tester Goals PT Software Application Tester Goals Time Frame: Oct 03, 2019 Roll Left to Right (QC): 3 Sit to Lying (QC): 3 Lying-Sitting on Side/Bed(QC): 3 Sit to Stand (QC): 3 Chair/Gta-hi-Gssjf Xfer(QC): 3 Car Transfer (QC): 3 Does the Patient Walk: No and Walking Goal NOT indicated Walk 10 feet (QC): 88 Walk 10ft-Uneven Surface(QC): 88 Walk 50ft with 2 Turns (QC): 88 Walk 150 ft (QC): 88 Wheel 50 feet with 2 turns (QC: 3 1 Step (curb) (QC): 88 4 Steps (QC): 88 12 Steps (QC): 88 Picking up an Object (QC): 88 OT Software Application Tester Goals Senior Living Goals Time Frame: Oct 03, 2019 Eating (QC): 4 (not met) Oral Hygiene (QC): 4 (met) Shower/Bathe Self (QC): 3 (not met) Upper Body Dressing (QC): 3 (met) Lower Body Dressing (QC): 2 (not met) On/Off Footwear (QC): 2 (met) Toileting Hygiene (QC): 3 (not met) Toilet/Commode Transfer (QC): 3 Additional Goals: 1-Demonstrate ADL Tasks, 2-Verbalize Understanding, 3- ImproveStrength/Aliyah 1=Demonstrate adherence to instructed precautions during ADL tasks. 2=Patient will verbalize/demonstrate understanding of assistive devices/modifications for ADL. 3=Patient will improve strength/tolerance for activity to enable patient to perform ADL's. Speech Senior Living Goals Software Application Tester Goals Patient will improve speech production for effective communication of his wants/needs. Patient will maintain adequate nutrition/hydration via PEG and/or oral intake. RUY MCGRATH PT Oct 11, 2019 13:49
[2019-10-11 16:00] VITALS: BP 120/72
--- NOTE | 2019-10-11 17:09 | Cardiology Progress Note ---
Cardiology SOAP Progress Note Subjective: no active cardiac complaints. He specifically denies chest pain or shortness of breath. He denies any active bleeding. Objective: I&O/Vital Signs 10/11/19 10/11/19 10/11/19 06:21 07:21 09:00 Temp 36.3 Pulse 93 Resp 16 B/P (MAP) 128/60 (82) Pulse Ox 93 O2 Delivery Room Air Room Air Room Air 10/11/19 00:00 Intake Total 1560 ml Balance 1560 ml Constitutional: well-developed, well-nourished, other Respiratory: chest expansion is symmetric, chest is bilaterally symmetric, lungs clear to auscultation Cardiovascular: regular rate-rhythm, S1 and S2, systolic murmur Gastrointestional: soft, audible bowel sounds, other Extremities: normal range of motion, non-tender, no lower extremity edema bilateral Neurologic/Psychiatric: alert, normal mood/affect, oriented x 3, other (L hemiplegia, rightward gaze, monosyllabic speech, orientation difficult to determine) Skin: No rash on exposed areas, No ulcerations on exposed areas A/P: Assessment/Dx: Hematochezia on 09/15/19 (warfarin and ASA were held previously) being managed by Dr Simon and Dr Flores 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 Dias at [facility] Records from [facility] report h/o CVA x 3 (2008, 2013 x2) H/O PE in 2017 tx at [facility] Dysphagia - PEG tube in place HTN CAD - CABG x 4 vessel in February 2016 at [facility] by Dr. Regan - quadruple bypass with VILLATORO to LAD, saphenous vein graft to OM 1, saphenous vein T graft to D1, saphenous vein graft to LPDA. 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 Has been on warfarin H/O hematology w/u at [facility] which did not show hypercoagulable state H/O acute gangrenous cholecystitis for which he underwent cholecystectomy in July 2019 at [place], [place] Documented h/o prostate cancer Okay to discharge, follow-up with outpatient cordage sales representative. Plan: Plan: On aspirin. Patient is also on Coumadin. Monitor labs Thank you for your consultation. Please call me if you have any questions. Cresencio Sweet MD, FACP, FACC, FSCAI, FHRS, CCDS Interventional Cardiology Cardiac Electrophysiology Vascular Medicine and Endovascular Interventions Miguel SWEET MD Oct 11, 2019 17:09
[2019-10-11 17:20] VITALS: BP 120/72
--- NOTE | 2019-10-11 17:20 | NUR ---
Patient discharged from facility in care of . Personal items and medications sent with patient. Discharge instructions explained to and given to patient's . Patient was changed into dry briefs before discharge. Patient transferred with use of Sarah to wheelchair and transported to waiting personal vehicle. PT Director met this nurse and patient and spouse at vehicle for transfer. Patient transferred with assist of two from wheelchair to front seat of vehicle. Patient tolerated transfer well. Wedge pillows used to assist in keeping patient upright due to poor trunk control.
== END 2019-10-11 17:25 | disposition home health service (06) | DRG 57 ==
PROVIDERS: ADMIT Internal Medicine; ATTEND Internal Medicine
DX: I69.354 Hemiplegia and hemiparesis following cerebral infarction affecting left non-dominant side (principal); R41.4 Neurologic neglect syndrome; K92.1 Melena; I69.398 Other sequelae of cerebral infarction; I69.392 Facial weakness following cerebral infarction; I69.391 Dysphagia following cerebral infarction; R13.10 Dysphagia, unspecified; D50.0 Iron deficiency anemia secondary to blood loss (chronic); I25.10 Atherosclerotic heart disease of native coronary artery without angina pectoris; I10 Essential (primary) hypertension; C61 Malignant neoplasm of prostate; I48.91 Unspecified atrial fibrillation; M19.91 Primary osteoarthritis, unspecified site; Z79.01 Long term (current) use of anticoagulants; Z93.1 Gastrostomy status; Z95.1 Presence of aortocoronary bypass graft; Z95.5 Presence of coronary angioplasty implant and graft; Z86.711 Personal history of pulmonary embolism; Z86.718 Personal history of other venous thrombosis and embolism; Z90.79 Acquired absence of other genital organ(s); T45.515A Adverse effect of anticoagulants, initial encounter
CPT/HCPCS: 36415; 74230; 80053; 85014; 85018; 85025; 85027; 85610; 93005; 93306; 93880; 94760